=== PATIENT | male | born 1960 | race Caucasian/White ===

== ENCOUNTER → 2018-02-08 | Outpatient (CLI) | payer OTHER | END | disposition home or self-care (01) | LOC: PMGWOUND 08:44 | PROVIDERS: ATTEND Preventive Medicine Undersea and Hyperbaric Medicine | DX: E11.621 Type 2 diabetes mellitus with foot ulcer (principal); I87.012 Postthrombotic syndrome with ulcer of left lower extremity; L97.521 Non-pressure chronic ulcer of other part of left foot limited to breakdown of skin; E11.622 Type 2 diabetes mellitus with other skin ulcer; I10 Essential (primary) hypertension; L97.222 Non-pressure chronic ulcer of left calf with fat layer exposed; L84 Corns and callosities; E78.5 Hyperlipidemia, unspecified; I87.2 Venous insufficiency (chronic) (peripheral); E66.9 Obesity, unspecified; Z68.35 Body mass index [BMI] 35.0-35.9, adult; Z85.118 Personal history of other malignant neoplasm of bronchus and lung; Z86.718 Personal history of other venous thrombosis and embolism; Z85.528 Personal history of other malignant neoplasm of kidney | CPT/HCPCS: 97597 ==

== ENCOUNTER → 2018-03-01 | Outpatient (CLI) | payer OTHER ==
--- NOTE | 2018-03-01 17:04 | RAD ---
Examination: VENOUS LOWER EXTREMITY LEFT History: Chronic DVT. Left lower extremity wound. Comparison/Correlation: None Findings: Duplex left lower extremity venous ultrasound exam was performed. Color Doppler, spectral Doppler, and grayscale imaging was performed. Occlusive thrombus involving the common femoral vein. Superficial femoral vein veins have partially occlusive thrombus. There is a partially occlusive thrombus identified within a peroneal vein. Lack of compressibility is noted at the sites of thrombus involvement. Intermediate echogenicity corresponding to thrombus noted. Impression: Significant left lower extremity deep venous thrombus. Occlusive thrombus at the common femoral vein level. Partially occlusive thrombus seen at other levels. 's office was contacted and a message was left on the voicemail. The patient is known to have a history of DVT and reportedly is currently on anticoagulation. Electronically signed by: Peng Alston MD (03/01/2018 5:00 PM) [facility]
--- NOTE | 2018-03-01 17:23 | RAD ---
Left lower extremity arterial ultrasound History: Wound of the left lower extremity Findings: Multiple grayscale, color, and duplex spectral analysis sonographic images were acquired of the left lower extremity arteries. No focal vessel occlusion is demonstrated. No significant focal stenosis is demonstrated. There are mostly triphasic waveforms other than biphasic waveforms of the anterior tibial and dorsalis pedis arteries. There are some additional images indicated as being a rivers [place] boatman of the left posterior tibial vein measured 10 cm proximal to the level of ankle joint and 3 cm posterior to the anterior margin of the tibia. Velocities in cm/sec: Common femoral artery 175 Profunda femoris artery 115 Proximal SFA 142 Mid SFA 132 Distal SFA 109 Popliteal artery 105 Anterior tibial artery 50 Dorsalis pedis artery 106 Posterior tibial artery 129 Impression: 1. No significant focal vessel occlusion or stenosis is demonstrated. Electronically signed by: Yury Ann MD (03/01/2018 5:19 PM) [id number]
== END | disposition home or self-care (01) ==
LOC: US 07:49 → EEVIPCON 08:00
DX: I82.412 Acute embolism and thrombosis of left femoral vein (principal); E11.622 Type 2 diabetes mellitus with other skin ulcer; L97.222 Non-pressure chronic ulcer of left calf with fat layer exposed; Z86.718 Personal history of other venous thrombosis and embolism
CPT/HCPCS: 93926; 93971

== ENCOUNTER → 2018-03-09 | Outpatient (CLI) | payer OTHER | END | disposition home or self-care (01) | LOC: PMGWOUND 12:34 | PROVIDERS: ATTEND Preventive Medicine Undersea and Hyperbaric Medicine | DX: E11.622 Type 2 diabetes mellitus with other skin ulcer (principal); L97.222 Non-pressure chronic ulcer of left calf with fat layer exposed; I87.012 Postthrombotic syndrome with ulcer of left lower extremity; I87.2 Venous insufficiency (chronic) (peripheral); L84 Corns and callosities; I10 Essential (primary) hypertension; E78.5 Hyperlipidemia, unspecified; E66.9 Obesity, unspecified; Z68.36 Body mass index [BMI] 36.0-36.9, adult; Z86.718 Personal history of other venous thrombosis and embolism; Z85.118 Personal history of other malignant neoplasm of bronchus and lung; Z85.528 Personal history of other malignant neoplasm of kidney | CPT/HCPCS: 97597; 97598 ==

== ENCOUNTER → 2018-03-16 | Outpatient (CLI) | payer OTHER | END | disposition home or self-care (01) | LOC: PMGWOUND 12:00 | PROVIDERS: ATTEND Preventive Medicine Undersea and Hyperbaric Medicine | DX: E11.622 Type 2 diabetes mellitus with other skin ulcer (principal); L97.222 Non-pressure chronic ulcer of left calf with fat layer exposed; I87.012 Postthrombotic syndrome with ulcer of left lower extremity; I87.2 Venous insufficiency (chronic) (peripheral); I10 Essential (primary) hypertension; L84 Corns and callosities; E78.5 Hyperlipidemia, unspecified; E66.9 Obesity, unspecified; Z68.36 Body mass index [BMI] 36.0-36.9, adult; Z85.528 Personal history of other malignant neoplasm of kidney; Z85.118 Personal history of other malignant neoplasm of bronchus and lung; Z86.718 Personal history of other venous thrombosis and embolism | CPT/HCPCS: 11042 ==

== ENCOUNTER → 2018-03-23 | Outpatient (CLI) | payer OTHER | END | disposition home or self-care (01) | LOC: PMGWOUND 12:50 | PROVIDERS: ATTEND Preventive Medicine Undersea and Hyperbaric Medicine | DX: E11.622 Type 2 diabetes mellitus with other skin ulcer (principal); L97.222 Non-pressure chronic ulcer of left calf with fat layer exposed; I87.012 Postthrombotic syndrome with ulcer of left lower extremity; L84 Corns and callosities; I10 Essential (primary) hypertension; I87.2 Venous insufficiency (chronic) (peripheral); E78.5 Hyperlipidemia, unspecified; E66.9 Obesity, unspecified; Z68.36 Body mass index [BMI] 36.0-36.9, adult; Z85.528 Personal history of other malignant neoplasm of kidney; Z86.718 Personal history of other venous thrombosis and embolism; Z85.118 Personal history of other malignant neoplasm of bronchus and lung | CPT/HCPCS: 97597; 97598 ==

== ENCOUNTER → 2018-03-30 | Outpatient (CLI) | payer OTHER ==
--- NOTE | 2018-04-03 09:09 | PATHOLOGY ---
[facility] Accession Number: [id number] . 01 Material submitted: . LEFT LOWER LEG WOUND . 01 Clinical history: . Left lower leg wound. . 02 Diagnosis: Skin and subcutaneous tissue, left lower leg wound, punch biopsy: - Granulation tissue with acute and chronic inflammation and recent and remote hemorrhage. . (JPM/at;04/02/2018) QTA/04/02/2018 . 02 Comment: Sections of the left lower leg wound punch biopsy revealed skin subcutaneous tissue. There is dermal granulation tissue showing acute and chronic inflammation and recent and remote hemorrhage. There is no evidence of lymphocytic vasculitis. There is no evidence of malignancy. . (JPM/at;04/02/2018) . 02 Electronically signed: . Bo Fuentes MD, Pathologist NPI- [id number] . 01 Gross description: . Received in formalin labeled "Brant Anaya, left distal leg wound tissue biopsy" is a skin punch biopsy measuring 0.3 cm in diameter and 0.6 cm in depth. The skin surface is rocha-patel and hemorrhagic without a definitive lesion. The margin is inked and the specimen is submitted without sectioning in cassette A1. ([facility]; 04/01/2018) SYC/SYC . 02 Pathologist provided ICD-10: L92.8, L08.9 . 02 CPT . 058867 Specimen Comment: A courtesy copy of this report has been sent to Specimen Comment: [phone]. Specimen Comment: Report sent to Specimen Comment: A duplicate report has been generated due to demographic updates. Performed at: [address], [place], [place] [id number] MD Dwaine Zapien MD Phone: [phone] Performed at: 02 [facility] [address] [place] [id number] MD Bo Fuentes MD Phone: [phone]
== END | disposition home or self-care (01) ==
LOC: PMGWOUND 12:05
PROVIDERS: ATTEND Preventive Medicine Undersea and Hyperbaric Medicine
DX: E11.622 Type 2 diabetes mellitus with other skin ulcer (principal); L97.222 Non-pressure chronic ulcer of left calf with fat layer exposed; E11.621 Type 2 diabetes mellitus with foot ulcer; L97.521 Non-pressure chronic ulcer of other part of left foot limited to breakdown of skin; I87.2 Venous insufficiency (chronic) (peripheral); L84 Corns and callosities; I87.012 Postthrombotic syndrome with ulcer of left lower extremity; E78.5 Hyperlipidemia, unspecified; I10 Essential (primary) hypertension; E66.9 Obesity, unspecified; Z68.36 Body mass index [BMI] 36.0-36.9, adult; Z85.528 Personal history of other malignant neoplasm of kidney; Z85.118 Personal history of other malignant neoplasm of bronchus and lung
CPT/HCPCS: 11100; 11104; 87071; 87075; 87186; 88305; 97597; 97598

== ENCOUNTER → 2018-04-06 | Outpatient (CLI) | payer OTHER | END | disposition home or self-care (01) | LOC: PMGWOUND 12:10 | PROVIDERS: ATTEND Preventive Medicine Undersea and Hyperbaric Medicine | DX: E11.622 Type 2 diabetes mellitus with other skin ulcer (principal); L97.222 Non-pressure chronic ulcer of left calf with fat layer exposed; I87.012 Postthrombotic syndrome with ulcer of left lower extremity; I87.2 Venous insufficiency (chronic) (peripheral); L84 Corns and callosities; E78.5 Hyperlipidemia, unspecified; E66.9 Obesity, unspecified; Z68.36 Body mass index [BMI] 36.0-36.9, adult; Z85.528 Personal history of other malignant neoplasm of kidney; Z86.718 Personal history of other venous thrombosis and embolism; Z85.118 Personal history of other malignant neoplasm of bronchus and lung | CPT/HCPCS: 97597; 97598 ==

== ENCOUNTER → 2018-04-13 | Outpatient (CLI) | payer OTHER | END | disposition home or self-care (01) | LOC: PMGWOUND 11:57 | PROVIDERS: ATTEND Preventive Medicine Undersea and Hyperbaric Medicine | DX: E11.622 Type 2 diabetes mellitus with other skin ulcer (principal); L97.222 Non-pressure chronic ulcer of left calf with fat layer exposed; I87.012 Postthrombotic syndrome with ulcer of left lower extremity; L84 Corns and callosities; I10 Essential (primary) hypertension; E78.5 Hyperlipidemia, unspecified; I87.2 Venous insufficiency (chronic) (peripheral); E66.9 Obesity, unspecified; Z68.36 Body mass index [BMI] 36.0-36.9, adult; Z85.118 Personal history of other malignant neoplasm of bronchus and lung; Z86.718 Personal history of other venous thrombosis and embolism; Z85.528 Personal history of other malignant neoplasm of kidney | CPT/HCPCS: 11042; 11045 ==

== ENCOUNTER → 2018-04-27 | Outpatient (CLI) | payer OTHER ==
[~2018-04-27] MED LIST: ACET325T9 PO; ALBU2.5V8 INH; ALLO100T PO; ASCO500T2 PO; ATOR40TA59 PO; BACI28.32 TP; CABO60TA PO; CETI10TA22 PO; DOCU100C28 PO; FURO20TA3 PO; GABA300C18 PO; GABA600T7 PO; GUAI100L12 PO; HYDR-2761 PO; HYDR12.575 PO; INSU100I11 SQ; INSU100V5 IJ; LACT20SO PO; LISI-334 PO; METF10007 PO; METH113C6 TP; MORP30TA3 PO; MULT1TAB90 PO; NPH,100V5 SQ; ONDA4TAB7 PO; OXYC1TAB22 PO; PANT20TA2 PO; PHEN28OI RC; PIOG45TA40 PO; PNV1TABL31 PO; SENN-80 PO; TAMS0.4C97 PO; WARF4TAB68 PO; WARF6TAB47 PO
== END | disposition home or self-care (01) ==
LOC: EEVIPCON 11:57 → PMGWOUND 11:57
PROVIDERS: ATTEND Preventive Medicine Undersea and Hyperbaric Medicine
DX: E11.622 Type 2 diabetes mellitus with other skin ulcer (principal); L97.222 Non-pressure chronic ulcer of left calf with fat layer exposed; I87.012 Postthrombotic syndrome with ulcer of left lower extremity; I10 Essential (primary) hypertension; L84 Corns and callosities; E78.5 Hyperlipidemia, unspecified; I87.2 Venous insufficiency (chronic) (peripheral); E66.9 Obesity, unspecified; Z68.36 Body mass index [BMI] 36.0-36.9, adult; Z85.118 Personal history of other malignant neoplasm of bronchus and lung; Z85.528 Personal history of other malignant neoplasm of kidney; Z86.718 Personal history of other venous thrombosis and embolism
CPT/HCPCS: 11042; 11045

== ENCOUNTER → 2018-05-04 | Outpatient (CLI) | payer OTHER | END | disposition home or self-care (01) | LOC: PMGWOUND 12:28 | PROVIDERS: ATTEND Preventive Medicine Undersea and Hyperbaric Medicine | DX: E11.622 Type 2 diabetes mellitus with other skin ulcer (principal); L97.222 Non-pressure chronic ulcer of left calf with fat layer exposed; I87.012 Postthrombotic syndrome with ulcer of left lower extremity; I10 Essential (primary) hypertension; I87.2 Venous insufficiency (chronic) (peripheral); E78.5 Hyperlipidemia, unspecified; L84 Corns and callosities; E66.9 Obesity, unspecified; Z68.36 Body mass index [BMI] 36.0-36.9, adult; Z85.528 Personal history of other malignant neoplasm of kidney; Z86.718 Personal history of other venous thrombosis and embolism; Z85.118 Personal history of other malignant neoplasm of bronchus and lung | CPT/HCPCS: 11042; 11045 ==

== ENCOUNTER → 2018-05-11 | Outpatient (CLI) | payer OTHER | END | disposition home or self-care (01) | LOC: PMGWOUND 12:30 | PROVIDERS: ATTEND Preventive Medicine Undersea and Hyperbaric Medicine | DX: E11.622 Type 2 diabetes mellitus with other skin ulcer (principal); I87.012 Postthrombotic syndrome with ulcer of left lower extremity; L97.222 Non-pressure chronic ulcer of left calf with fat layer exposed; L84 Corns and callosities; I87.2 Venous insufficiency (chronic) (peripheral); E78.5 Hyperlipidemia, unspecified; I10 Essential (primary) hypertension; E66.9 Obesity, unspecified; Z68.35 Body mass index [BMI] 35.0-35.9, adult; Z85.118 Personal history of other malignant neoplasm of bronchus and lung; Z85.528 Personal history of other malignant neoplasm of kidney; Z86.718 Personal history of other venous thrombosis and embolism | CPT/HCPCS: 11042; 11045 ==

== ENCOUNTER → 2018-05-18 | Outpatient (CLI) | payer OTHER | END | disposition home or self-care (01) | LOC: PMGWOUND 12:08 | PROVIDERS: ATTEND Preventive Medicine Undersea and Hyperbaric Medicine | DX: E11.622 Type 2 diabetes mellitus with other skin ulcer (principal); L97.822 Non-pressure chronic ulcer of other part of left lower leg with fat layer exposed; I87.012 Postthrombotic syndrome with ulcer of left lower extremity; I87.2 Venous insufficiency (chronic) (peripheral); L84 Corns and callosities; I10 Essential (primary) hypertension; E78.5 Hyperlipidemia, unspecified; E66.9 Obesity, unspecified; Z68.36 Body mass index [BMI] 36.0-36.9, adult; Z86.718 Personal history of other venous thrombosis and embolism; Z85.528 Personal history of other malignant neoplasm of kidney; Z85.118 Personal history of other malignant neoplasm of bronchus and lung | CPT/HCPCS: 97597; 97598 ==

== ENCOUNTER 2018-05-25 15:01 | Inpatient (IN) | payer MEDICARE, MEDICAID ==
[~2018-05-25] VITALS: Ht 172.7 cm; Wt 113.9 kg
[2018-05-25 17:00] VITALS: BP 139/54
[2018-05-25] MEDS ORDERED: NPH,100V5 SQ (17:36)
[2018-05-25] MEDS ORDERED: FURO20TA3 PO (17:36)
[2018-05-25] MEDS ORDERED: PIOG45TA40 PO (17:36)
[2018-05-25] MEDS ORDERED: LISI-334 PO (17:36)
[2018-05-25] MEDS ORDERED: INSU100V5 IJ (17:36)
[2018-05-25] MEDS ORDERED: ACET325T9 PO (17:36)
[2018-05-25] MEDS ORDERED: SENN-80 PO (17:36)
[2018-05-25] MEDS ORDERED: WARF4TAB68 PO (17:36)
--- NOTE | 2018-05-25 17:58 | PDOC1 ---
History and Physical Date of Admission Date of Admission DATE: 05/25/18 TIME: 17:54 Identification/Chief Complaint Chief Complaint Worsening infection left lower leg x a few days, seen in wound clinic weekly x yrs, now with fever, inc redness and pain, denies recent trauma pain requiring iv narcotics STATES HE IS NEAR [facility] TERM END, LOW SECURITY RISK NO guard in room, was serving time for failure to pay child support. Past Medical History Cardiovascular: HTN CENTRAL NERVOUS SYSTEM: Periperal neuropathy GI: No pertinent hx Heme/Onc: No pertinent hx Musculoskeletal: Stiffness Infectious disease: No pertinent hx, Other ENT: No pertinent hx Renal/: No pertinent hx Endocrine: Diabetes Dermatology: Cellulitis Past Surgical History Past Surgical History: Hernia Repair, Other Family History Family History: Hypertension Social History Smoke: No ALCOHOL: none Drugs: None Current Medications Current Medications Active Scripts Active Reported Tylenol (Acetaminophen) 325 Mg Tablet 2 Tab PO TID PRN PRN Humulin R (Insulin Regular, Human) 100 Unit/1 Ml Vial 100 Unit IJ TIDAC Lisinopril 20 Mg Tablet 1 Tab PO DAILY Furosemide 20 Mg Tablet 1 Tab PO DAILY Coumadin (Warfarin Sodium) 4 Mg Tablet 1 Tab PO DAILY Actos (Pioglitazone Hcl) 45 Mg Tablet 1 Tab PO DAILY Novolin N (Nph, Human Insulin Isophane) 100 Unit/1 Ml Vial 20 Unit SQ BID Senna (Sennosides) 8.6 Mg Tablet 2 Mg PO BID Allergies Allergies: Coded Allergies: I S O L A T I O N *CONTACT* (Verified Allergy, Unknown, 04/05/18) mrsa ibuprofen (Verified Adverse Reaction, Intermediate, 05/25/18) Warfarin ROS General: No: Chills, Night Sweats, Fatigue, Malaise, Appetite, Other PSYCHOLOGICAL ROS: No: Anxiety, Behavioral Disorder, Concentration difficultie , Decreased libido, Depression, Disorientation, Hallucinations, Hostility, Irritablity, Memory difficulties, Mood Swings, Obsessive thoughts, Physical abuse, Sexual abuse, Sleep disturbances, Suicidal ideation, Other Eyes: No Blurry vision, No Decreased vision, No Double vision, No Dry eyes, No Excessive tearing, No Eye Pain, No Itchy Eyes, No Loss of vision, No Photophobia , No Scotomata, No Uses contacts, No Uses glasses, No Other HEENT: No: Heacaches, Visual Changes, Hearing change, Nasal congestion, Nasal discharge, Oral lesions, Sinus pain, Sore Throat, Epistaxis, Sneezing, Snoring, Tinnitus, Vertigo, Vocal changes, Other ALLERGY AND IMMUNOLOGY: No: Hives, Insect Bite Sensitivity, Itchy/Watery Eyes, Nasal Congestion, Post Nasal Drip, Seasonal Allergies, Other Hematological and Lymphatic: No: Bleeding Problems, Blood Clots, Blood Transfusions, Brusing, Night Sweats, Pallor, Swollen Lymph Nodes, Other ENDOCRINE: No: Breast Changes, Galactorrhea, Hair Pattern Changes, Hot Flashes , Malaise/lethargy, Mood Swings, Palpitations, Polydipsia/polyuria, Skin Changes , Temperature Intolerance, Unexpected Weight Changes, Other Breast: No New/Changing Breast Lumps, No Nipple changes, No Nipple discharge, No Other Respiratory: No: Cough, Hemoptysis, Orthopnea, Pleuritic Pain, Shortness of breath, SOB with excertion, Sputum Changes, Stridor, Tachypnea, Wheezing, Other Cardiovascular: No Chest Pain, No Palpitations, No Orthopnea, No Paroxysmal Noc. Dyspnea, No Edema, No Lt Headedness, No Other Gastrointestinal: No Nausea, No Vomiting, No Abdominal Pain, No Diarrhea, No Constipation, No Melena, No Hematochezia, No Other Musculoskeletal: Yes Gait Disturbance Neurological: No Behavorial Changes, No Bowel/Bladder ControlChng, No Confusion , No Dizziness, No Gait Disturbance, No Headaches, No Impaired Coord/balance, No Memory Loss, No Numbness/Tingling, No Seizures, No Speech Problems, No Tremors, No Visual Changes, No Weakness, No Other Skin: Yes Skin Lesion Changes Physical Exam General: Alert, Oriented X3, Cooperative, No acute distress HEENT: PERRLA Lungs: Clear to auscultation, Normal air movement Heart: S1S2, RRR Breasts: Not examined Abdomen: Normal bowel sounds, Soft Rectal Exam: not examined PELVIC: Examination not indicated Extremities: No clubbing, Other (left lower leg marked cellulitis) Neuro: Normal speech, Cranial nerves 3-12 NL Psych/Mental Status: Mental status NL, Mood NL Vitals Vitals Vital Signs Date Time Temp Pulse Resp B/P (MAP) Pulse Ox O2 Delivery O2 Flow Rate FiO2 05/25/18 17:00 98.8 96 17 139/54 (82) 97 Room Air 98.8 Labs Labs Diagnosis: Skin and subcutaneous tissue, left lower leg wound, punch biopsy: - Granulation tissue with acute and chronic inflammation and recent and remote hemorrhage. . (JPM/at;04/02/2018) QTA/04/02/2018 . 02 Comment: Sections of the left lower leg wound punch biopsy revealed skin subcutaneous tissue. There is dermal granulation tissue showing acute and chronic inflammation and recent and remote hemorrhage. There is no evidence of lymphocytic vasculitis. There is no evidence of malignancy. . (JPM/at;04/02/2018) VTE Prophylaxis Ordered VTE Prophylaxis Devices: Contraindicated VTE Pharmacological Prophylaxi: Yes Assessment/Plan Assessment/Plan impression 1. marked complicated acute cellulitis left lower leg 2. diabetes 3. hypertension 4. failed out pt rx in wound clinic PMC 5. OBESITY 6. [place] prisoner low security 7. mod protein, caloric malnutrition D/W DR MCCRACKEN by phone plan admit 2 mn iv zosyn iv VANC PENDING ID CONSULT ID CONSULT WOUND CARE NURSE TO SEE BLOOD CULT X1 CULT WOUND CONT COUMADIN/ INR PENDING arterial doppler both legs r/ pvd a1c accuchecks CBC, COMP MAXIMILIANO JONAS MD May 25, 2018 17:58
[2018-05-25] MEDS ORDERED: cloNIDine HCL 0.1 MG TABLET PO PRN (18:00)
[2018-05-25] MEDS ORDERED: DOCUSATE SODIUM 100 MG CAPSULE. PO PRN (18:00)
[2018-05-25] MEDS ORDERED: diphenhydrAMINE 50 MG/ML VIAL IVP PRN (18:00)
[2018-05-25] MEDS ORDERED: ZOLPIDEM 5 MG TABLET. PO PRN (18:00)
[2018-05-25] MEDS ORDERED: MAG HYDROX/ALUMINUM HYD/SIMETH 30 ML ORAL.SUSP PO PRN (18:00)
[2018-05-25] MEDS ORDERED: guaiFENesin ORAL 200 MG/10 ML LIQUID. PO PRN (18:00)
[2018-05-25] MEDS ORDERED: TAMS0.4C97 PO (18:12)
[2018-05-25] MEDS ORDERED: GABA600T7 PO (18:14)
[2018-05-25] MEDS ORDERED: ALLO100T PO (18:14)
[2018-05-25] MEDS ORDERED: ACETAMINOPHEN 325 MG TABLET. PO PRN (18:15)
[2018-05-25] MEDS ORDERED: GABA300C18 PO (18:16)
[2018-05-25] MEDS ORDERED: METF10007 PO (18:17)
[2018-05-25] MEDS ORDERED: CETI10TA22 PO (18:20)
[2018-05-25] MEDS ORDERED: ATOR40TA59 PO (18:20)
[2018-05-25] MEDS ORDERED: ALBU2.5V8 INH (18:31)
[2018-05-25] MEDS ORDERED: METH113C6 TP (18:31)
[2018-05-25] MEDS ORDERED: PHEN28OI RC (18:31)
[2018-05-25] MEDS ORDERED: VANCOMYCIN 2 GM in IV NORMAL SALINE 500ML BAG 500 ML IV ONE (19:00)
[2018-05-25 19:30] VITALS: BP 129/63
[2018-05-25 20:21] LABS: PROTHROMBIN TIME PATIENT 21.4 SEC (11.7-14.0)
[2018-05-25] MEDS: VANCOMYCIN PER PHARMACY MC PRN (20:50)
[2018-05-25] MEDS: IPRATRPIUM/ALBUTEROL 0.5/2.5MG 3 ML NEBU. NEB SCH (20:56)
--- NOTE | 2018-05-25 20:57 | NUR ---
Pharmacy Vancomycin Dosing Note S:Consulted to monitor and dose vancomycin started 05/25/18. O:HELADIO GAO is a 57 year old M with Cellulitis Height: 5 feet, 8 inches Weight: 114 kg Mathis Body Weight: 68.40 Adjusted Body Weight: 86.64 Dosing Weight: Actual Other Antibiotics: zosyn LABS: Last BUN: 25 Last Creatinine: 1.2 Creatinine Clearance: 82.2 mL/min Last WBC: 11.4 Last Procalcitonin: Tmax (past 24 hours): 98.8 Microbiology: - I/O: - Vancomycin Dosing: Loading Dose: 2000 mg x1 Dosing Weight: Actual Target Trough: 10-20 A: Based on: weight and renal function P: 1. Begin Vancomycin 1500 mg IV q12h 2. Follow up Trough level on 05/27/18 at 0830 3. Pharmacy will continue to monitor, follow and adjust therapy as needed. Nancie Oro RPH, 05/25/18 [id number]
[2018-05-25] MEDS: IV NORMAL SALINE 1000ML BAG 1,000 ML IV SCH (21:30)
[2018-05-25] MEDS: PIPERACILLIN/TAZOBACTAM 3.375 GM in IV NORMAL SALINE 50ML 50 ML IV SCH (21:31)
[2018-05-25] MEDS: LORazepam 0.5 MG TABLET PO PRN (21:33)
[2018-05-25] MEDS: SENNOSIDES 8.6 MG TABLET PO SCH (21:33)
[2018-05-25] MEDS: WARFARIN 4 MG TABLET. PO SCH (21:34)
[2018-05-25] MEDS: INSULIN GLARGINE 300 UNITS/3 ML INSULN.PEN. SQ SCH (21:41)
[2018-05-25] MEDS: fentaNYL PF VIAL 100 MCG/2 ML VIAL IV PRN (22:20)
[2018-05-25] MEDS: ACETAMINOPHEN 325 MG TABLET. PO PRN (22:22)
[2018-05-25 23:30] VITALS: BP 111/54
[2018-05-26] MEDS ORDERED: PIPERACILLIN/TAZOBACTAM 3.375 GM in IV NORMAL SALINE 50ML 50 ML IV SCH ×2
[2018-05-26] MEDS: PIPERACILLIN/TAZOBACTAM 3.375 GM in IV NORMAL SALINE 50ML 50 ML IV SCH ×4 (00:29→18:10)
[2018-05-26] MEDS: IPRATRPIUM/ALBUTEROL 0.5/2.5MG 3 ML NEBU. NEB SCH ×7 (00:59→23:19)
[2018-05-26 03:30] VITALS: BP 113/57
[2018-05-26] MEDS: LORazepam 0.5 MG TABLET PO PRN (04:30)
[2018-05-26] MEDS: ACETAMINOPHEN 325 MG TABLET. PO PRN ×2 (04:31→22:46)
[2018-05-26] MEDS: fentaNYL PF VIAL 100 MCG/2 ML VIAL IV PRN ×4 (04:32→20:16)
[2018-05-26 05:21] LABS: BILIRUBIN,URINE NEGATIVE (NEG); CLARITY,URINE CLEAR; COLOR,URINE YELLOW; NITRITE,URINE NEGATIVE (NEG); PH,URINE 5.5; PROTEIN,URINE NEGATIVE (NEG-TRACE)
[2018-05-26 05:33] LABS: BACTERIA,URINE 0 /HPF (0-FEW); RBC,URINE 0 /HPF (0-2); SQUAMOUS EPITHELIAL CELL,UR FEW /LPF; WBC,URINE OCC /HPF (0-4)
[2018-05-26 05:57] LABS: PROTHROMBIN TIME PATIENT 21.4 SEC (11.7-14.0)
[2018-05-26 07:00] VITALS: BP 105/44
--- NOTE | 2018-05-26 07:55 | RAD ---
AP chest. HISTORY: Leg wound, fever AP view was taken of the chest. There are multiple pulmonary nodules. The pattern can be related to septic emboli or metastatic disease to the lungs. CT of the chest would be of benefit. Heart is normal in size. There is no pleural effusion. IMPRESSION: 1. Multiple pulmonary nodules, CT would be of benefit. Electronically signed by: Arturo Torres MD (05/26/2018 7:52 AM) [facility]
--- NOTE | 2018-05-26 08:19 | RAD ---
Bilateral arterial Doppler the lower extremities. HISTORY: Peripheral vascular disease, large open wound left lower extremity Duplex ultrasound was used to evaluate the lower extremities. Real-time imaging, color flow imaging and Doppler were utilized for evaluation. Peak velocity in the right common femoral artery was 142 cm/s with a normal triphasic waveform. Deep femoral artery had a biphasic waveform with velocity of 68 cm/s. There are triphasic waveforms throughout the length of the superficial femoral artery on the right with velocities between 150 cm/s proximally and 100 cm distally. There is a triphasic pattern at the popliteal artery with velocity 109 cm/s. There is a Triphasic waveform in the proximal anterior tibial on the right with a velocity of 61 cm/s. There is a triphasic pattern with velocity of 133 cm in the distal posterior tibial artery. There is a triphasic waveform with velocity of 62 cm/s in the right dorsalis pedis. There is a prominent lymph node in the right groin. Reactive lymph node is possible with the wound in the left lower extremity. Velocity at the left common femoral artery is 145 cm/s with a triphasic waveform. Triphasic flow is noted throughout the length of the left superficial femoral artery with velocities between 188 cm/s proximally and 149 cm/s distally. There is a triphasic waveform with velocity of 97 cm/s the popliteal artery. There is a triphasic flow with a velocity of 81 cm per sec in the proximal left anterior tibial artery. There is a triphasic waveform with velocity 115 cm/s in the left dorsalis pedis. The patient's wound Limits evaluation of the calf. There is a biphasic waveform in the proximal posterior tibial with velocity of 67 cm/s. IMPRESSION: 1. No evidence of significant peripheral vascular disease in the right lower extremity. 2. Limited evaluation of the calf due to the wound. 3. No evidence of significant arterial stenosis to the level in the popliteal artery in the left lower extremity. 4. Normal triphasic pattern in the anterior tibial and dorsalis pedis to the left foot. Electronically signed by: Arturo Torres MD (05/26/2018 8:16 AM) [facility]
[2018-05-26] MEDS ORDERED: VANCOMYCIN 1.5 GM in IV NORMAL SALINE 500ML BAG 500 ML IV SCH (09:00)
[2018-05-26] MEDS ORDERED: ENOXAPARIN 40 MG/0.4 ML SYRINGE. SQ SCH (09:00)
[2018-05-26] MEDS: FUROSEMIDE 20 MG TABLET PO SCH (09:00)
[2018-05-26] MEDS: IV NORMAL SALINE 1000ML BAG 1,000 ML IV SCH ×3 (09:38→23:33)
[2018-05-26] MEDS: LISINOPRIL 20 MG TABLET PO SCH (09:40)
[2018-05-26] MEDS: SENNOSIDES 8.6 MG TABLET PO SCH ×2 (09:41→20:15)
[2018-05-26] MEDS: PIOGLITAZONE 15 MG TABLET. PO SCH (09:42)
[2018-05-26] MEDS: INSULIN GLARGINE 300 UNITS/3 ML INSULN.PEN. SQ SCH ×2 (09:53→20:43)
[2018-05-26] MEDS ORDERED: ALBUTEROL SULFATE 2.5 MG/3 ML NEBU. INH PRN (10:15)
--- NOTE | 2018-05-26 10:34 | EKG ---
[facility] [address] [place] [address] Test Date: 2018-05-26 Test Time: 10:25:59 Pat Name: HELADIO GAO Department: Room: [facility] Gender: M Electronic Development Technician: DEANDRE : 1960 Requested By: MAXIMILIANO JONAS Order Number: [id number] Reading MD: Dany Miller MD Measurements Intervals [place] Rate: 90 P: 42 CO: 146 QRS: 6 QRSD: 90 T: 42 QT: 332 QTc: 410 Interpretive Statements SINUS RHYTHM Electronically Signed On 05-31-2018 15:01:56 CDT by Dany Miller MD
[2018-05-26 11:00] VITALS: BP 100/48
[2018-05-26] MEDS ORDERED: ALLOPURINOL 100 MG TABLET. PO SCH (11:00)
[2018-05-26] MEDS: GABAPENTIN 300 MG CAPSULE. PO SCH ×2 (12:37→20:15)
[2018-05-26] MEDS: CETIRIZINE HCL 10 MG TABLET. PO SCH (12:41)
[2018-05-26] MEDS: TAMSULOSIN 0.4 MG CAP.ER.24H. PO SCH (12:41)
[2018-05-26] MEDS ORDERED: DEXTROSE 50% 25 GM / 50ML DISP.SYRIN. IV PRN (13:00)
--- NOTE | 2018-05-26 13:45 | NUR ---
Patient refused allopurinol, he said he's not been taking the medicine for years.
[2018-05-26 15:00] VITALS: BP 105/55
[2018-05-26] MEDS: VANCOMYCIN PER PHARMACY MC PRN (16:08)
--- NOTE | 2018-05-26 16:18 | PDOC ---
PROGRESS NOTES Chief Complaint Chief Complaint 1. marked complicated acute cellulitis left lower leg 2. diabetes 2, mod control 3. hypertension 4. leg wound with cellullitis in DM2 5. OBESITY, BMI 38 6. [place] prisoner low security 7. mod protein, caloric malnutrition History of Present Illness History of Present Illness iv zosyn and vanc ID consult DM2 control, add SSI, add home meds wound care consult, pain control, A1c hgb in AM arterial doppler both legs OK CBC, COMP Vitals Vitals Vital Signs Date Time Temp Pulse Resp B/P (MAP) Pulse Ox O2 Delivery O2 Flow Rate FiO2 05/26/18 15:00 99.6 96 20 105/55 (72) 96 Room Air 99.6 Physical Exam General: Alert, Oriented X3, Cooperative, No acute distress Heart: No murmurs Abdomen: Normal bowel sounds, Soft Extremities: No clubbing, Other (left lower leg marked cellulitis) Labs LABS Laboratory Tests Test 05/25/18 19:33 05/25/18 21:37 05/26/18 04:28 05/26/18 04:50 Prothrombin Time 21.4 SEC (11.7-14.0) 21.4 SEC (11.7-14.0) Prothromb Time International Ratio 1.9 (0.8-1.1) 1.9 (0.8-1.1) Lactic Acid Level 2.0 mmol/L (0.4-2.0) Albumin 2.8 g/dL (3.4-5.0) Glucose (Fingerstick) 214 mg/dL (70-99) Urine Collection Type Unknown Urine Color Yellow Urine Clarity Clear Urine pH 5.5 Urine Specific Arpin 1.015 Urine Protein Negative mg/dL (NEG-TRACE) Urine Glucose (UA) 100 mg/dL (NEG) Urine Ketones (Stick) Negative mg/dL (NEG) Urine Blood Negative (NEG) Urine Nitrite Negative (NEG) Urine Bilirubin Negative (NEG) Urine Urobilinogen Dipstick 1.0 mg/dL (0.2 mg/dL) Urine Leukocyte Esterase Negative (NEG) Urine RBC 0 /HPF (0-2) Urine WBC Occ /HPF (0-4) Urine Squamous Epithelial Cells Few /LPF Urine Bacteria 0 /HPF (0-FEW) Test 05/26/18 07:27 05/26/18 10:42 Glucose (Fingerstick) 160 mg/dL (70-99) 288 mg/dL (70-99) Review of Systems Review of Systems leg pain, neuropathy insomnia Comment Review of Relevant I have reviewed the following items anjana (where applicable) has been applied. Labs Laboratory Tests Test 05/25/18 19:33 05/25/18 21:37 05/26/18 04:28 05/26/18 04:50 Prothrombin Time 21.4 SEC (11.7-14.0) 21.4 SEC (11.7-14.0) Prothromb Time International Ratio 1.9 (0.8-1.1) 1.9 (0.8-1.1) Lactic Acid Level 2.0 mmol/L (0.4-2.0) Albumin 2.8 g/dL (3.4-5.0) Glucose (Fingerstick) 214 mg/dL (70-99) Urine Collection Type Unknown Urine Color Yellow Urine Clarity Clear Urine pH 5.5 Urine Specific Arpin 1.015 Urine Protein Negative mg/dL (NEG-TRACE) Urine Glucose (UA) 100 mg/dL (NEG) Urine Ketones (Stick) Negative mg/dL (NEG) Urine Blood Negative (NEG) Urine Nitrite Negative (NEG) Urine Bilirubin Negative (NEG) Urine Urobilinogen Dipstick 1.0 mg/dL (0.2 mg/dL) Urine Leukocyte Esterase Negative (NEG) Urine RBC 0 /HPF (0-2) Urine WBC Occ /HPF (0-4) Urine Squamous Epithelial Cells Few /LPF Urine Bacteria 0 /HPF (0-FEW) Test 05/26/18 07:27 05/26/18 10:42 Glucose (Fingerstick) 160 mg/dL (70-99) 288 mg/dL (70-99) Laboratory Tests Test 05/25/18 19:33 05/25/18 21:37 05/26/18 04:28 05/26/18 04:50 Prothrombin Time 21.4 SEC (11.7-14.0) 21.4 SEC (11.7-14.0) Prothromb Time International Ratio 1.9 (0.8-1.1) 1.9 (0.8-1.1) Lactic Acid Level 2.0 mmol/L (0.4-2.0) Albumin 2.8 g/dL (3.4-5.0) Glucose (Fingerstick) 214 mg/dL (70-99) Urine Collection Type Unknown Urine Color Yellow Urine Clarity Clear Urine pH 5.5 Urine Specific Arpin 1.015 Urine Protein Negative mg/dL (NEG-TRACE) Urine Glucose (UA) 100 mg/dL (NEG) Urine Ketones (Stick) Negative mg/dL (NEG) Urine Blood Negative (NEG) Urine Nitrite Negative (NEG) Urine Bilirubin Negative (NEG) Urine Urobilinogen Dipstick 1.0 mg/dL (0.2 mg/dL) Urine Leukocyte Esterase Negative (NEG) Urine RBC 0 /HPF (0-2) Urine WBC Occ /HPF (0-4) Urine Squamous Epithelial Cells Few /LPF Urine Bacteria 0 /HPF (0-FEW) Test 05/26/18 07:27 05/26/18 10:42 Glucose (Fingerstick) 160 mg/dL (70-99) 288 mg/dL (70-99) Medications Current Medications Sodium Chloride 1,000 ml @ 100 mls/hr Q10H IV Last administered on 05/26/18at 09:38; Start 05/25/18 at 17:54 Ondansetron HCl (Zofran) 4 mg PRN Q4HRS PRN IV NAUSEA/VOMITING; Start 05/25/18 at 18:00 Zolpidem Tartrate (Ambien) 5 mg PRN QHS PRN PO INSOMNIA; Start 05/25/18 at 18: 00 Acetaminophen (Tylenol) 650 mg PRN Q4HRS PRN PO TEMP OVER 100.4F OR MILD PAIN Last administered on 05/26/18at 04:31; Start 05/25/18 at 18:00 Al Hydroxide/Mg Hydroxide (Mylanta Plus Xs) 30 ml PRN DAILY PRN PO HEARTBURN / GAS; Start 05/25/18 at 18:00 Clonidine HCl (Catapres) 0.1 mg PRN Q6HRS PRN PO SBP>160 OR DBP>90; Start 05/25 at 18:00 Diphenhydramine HCl (Benadryl) 25 mg PRN Q4HRS PRN IVP ITCHING; Start 05/25/18 at 18:00 Docusate Sodium (Colace) 100 mg PRN BID PRN PO CONSTIPATION; Start 05/25/18 at 18:00 Albuterol/ Ipratropium (Duoneb) 3 ml Q4HRS NEB Last administered on 05/26/18 16:03; Start 05/25/18 at 20:00 Guaifenesin (Robitussin) 200 mg PRN Q4HRS PRN PO COUGH; Start 05/25/18 at 18:00 Lorazepam (Ativan) 0.5 mg PRN Q4HRS PRN PO ANXIETY / AGITATION Last administered on 05/26/18at 04:30; Start 05/25/18 at 18:00 Enoxaparin Sodium (Lovenox 40mg Syringe) 40 mg DAILY SQ Last administered on 09:39; Start 05/26/18 at 09:00 Piperacillin Sod/ Tazobactam Sod 3.375 gm/Sodium Chloride 50 ml @ 100 mls/hr Q6HRS IV Last administered on 05/26/18 12:53; Start 05/25/18 at 18:10 Acetaminophen (Tylenol) 650 mg TID PRN PRN PO PAIN; Start 05/25/18 at 18:15; Status UNV Furosemide (Lasix) 20 mg DAILY PO ; Start 05/26/18 at 09:00 Lisinopril (Prinivil) 20 mg DAILY PO Last administered on 05/26/18 09:40; Start 05/26/18 at 09:00 Insulin Glargine (Lantus) 20 units BID SQ Last administered on 05/26/18 09:53 ; Start 05/25/18 at 21:00 Pioglitazone HCl (Actos) 45 mg DAILY PO Last administered on 05/26/18 09:42; Start 05/26/18 at 09:00 Sennosides (Senna) 17.2 mg BID PO Last administered on 05/26/18 09:41; Start 05/25/18 at 21:00 Warfarin Sodium (Coumadin) 4 mg DAILY16 PO Last administered on 05/25/18at 21:34 ; Start 05/25/18 at 21:00 Piperacillin Sod/ Tazobactam Sod 3.375 gm/Sodium Chloride 50 ml @ 100 mls/hr Q6HRS IV ; Start 05/26/18 at 00:00; Status UNV Vancomycin HCl (Vanco Per Pharmacy) 1 each PRN DAILY PRN MC SEE COMMENTS Last administered on 05/26/18at 16:08; Start 05/25/18 at 18:45 Vancomycin HCl 2 gm/Sodium Chloride 500 ml @ 250 mls/hr 1X ONCE IV Last administered on 05/25/18at 22:34; Start 05/25/18 at 19:00; Stop 05/25/18 at 20:59 ; Status DC Warfarin Sodium (Coumadin Per Physician) 1 each PRN DAILY PRN MC SEE COMMENTS Last administered on 05/26/18at 16:15; Start 05/25/18 at 20:45 Vancomycin HCl 1.5 gm/Sodium Chloride 500 ml @ 250 mls/hr Q12H IV Last administered on 05/26/18at 09:39; Start 05/26/18 at 09:00 Vancomycin HCl (Vancomycin Trough Level) 1 each 1X ONCE MC ; Start 05/27/18 at 08:30; Stop 05/27/18 at 08:31 Fentanyl Citrate (Fentanyl 2ml Vial) 50 mcg PRN Q3HRS PRN IV SEVERE PAIN Last administered on 05/26/18at 12:51; Start 05/25/18 at 22:00 Albuterol Sulfate (Ventolin Neb Soln) 2.5 mg PRN Q6HRS PRN INH SHORTNESS OF BREATH; Start 05/26/18 at 10:15 Allopurinol (Zyloprim) 200 mg DAILY PO ; Start 05/26/18 at 11:00; Stop 05/26/18 at 16:09; Status DC Atorvastatin Calcium (Lipitor) 40 mg QHS PO ; Start 05/26/18 at 21:00 Cetirizine HCl (ZyrTEC) 10 mg DAILY PO Last administered on 05/26/18at 12:41; Start 05/26/18 at 10:30 Tamsulosin HCl (Flomax) 0.4 mg DAILY PO Last administered on 05/26/18at 12:41; Start 05/26/18 at 10:30 Gabapentin (Neurontin) 600 mg BID PO Last administered on 05/26/18at 12:37; Start 05/26/18 at 10:15 Insulin Human Lispro (HumaLOG) 4 units TIDWMEALS SQ ; Start 05/26/18 at 17:00 Insulin Human Lispro (HumaLOG) 0-7 UNITS TIDWMEALS SQ ; Start 05/26/18 at 17:00 Dextrose (Dextrose 50%-Water Syringe) 12.5 gm PRN Q15MIN PRN IV SEE COMMENTS; Start 05/26/18 at 13:00 Active Scripts Active Reported Preparation H Ointment (Phenyleph/Mineral Oil/Petrolat) 28 Gm Oint.appl 28 Gm RC QID Muscle Rub Cream (Methyl Salicylate/Menthol) 113 Gm Cream..g. 1 Gm TP TID Proair Hfa Inhaler (Albuterol Sulfate) 8.5 Gm Hfa.aer.ad 1 Puff INH PRN Q6HRS PRN Zyrtec (Cetirizine Hcl) 10 Mg Tablet 1 Tab PO DAILY Atorvastatin Calcium 40 Mg Tablet 1 Tab PO QHS Metformin Hcl 1,000 Mg Tablet 1,000 Mg PO BIDWMEALS Gabapentin (Gabapentin) 300 Mg Capsule 300 Mg PO DAILY Gabapentin 600 Mg Tablet 600 Mg PO DAILY08 Flomax (Tamsulosin Hcl) 0.4 Mg Cap.er.24h 1 Cap PO DAILY Tylenol (Acetaminophen) 325 Mg Tablet 2 Tab PO TID PRN PRN Humulin R (Insulin Regular, Human) 100 Unit/1 Ml Vial 100 Unit IJ TIDAC Lisinopril 20 Mg Tablet 1 Tab PO DAILY Furosemide 20 Mg Tablet 1 Tab PO DAILY Coumadin (Warfarin Sodium) 4 Mg Tablet 1 Tab PO DAILY Actos (Pioglitazone Hcl) 45 Mg Tablet 1 Tab PO DAILY Novolin N (Nph, Human Insulin Isophane) 100 Unit/1 Ml Vial 20 Unit SQ BID Senna (Sennosides) 8.6 Mg Tablet 2 Mg PO BID Vitals/I & O Vital Sign - Last 24 Hours 05/25/18 05/25/18 05/25/18 05/25/18 16:30 17:00 19:30 20:00 Temp 98.8 99.9 98.8 99.9 Pulse 96 102 Resp 17 18 B/P (MAP) 139/54 (82) 129/63 (85) Pulse Ox 97 94 O2 Delivery Room Air Room Air Room Air Room Air 05/25/18 05/25/18 05/25/18 05/26/18 20:58 22:20 23:30 00:59 Temp 102.0 102.0 Pulse 102 Resp 18 B/P (MAP) 111/54 (73) Pulse Ox 99 92 O2 Delivery Room Air Room Air Room Air Room Air 05/26/18 05/26/18 05/26/18 05/26/18 03:30 04:32 07:00 07:11 Temp 98.8 99.2 98.8 99.2 Pulse 87 87 Resp 18 18 B/P (MAP) 113/57 (75) 105/44 (64) Pulse Ox 93 96 96 O2 Delivery Room Air Room Air Room Air Room Air 05/26/18 05/26/18 05/26/18 05/26/18 08:00 09:40 11:00 12:50 Temp 98.6 98.6 Pulse 87 86 Resp 18 B/P (MAP) 105/44 100/48 (65) Pulse Ox 96 94 O2 Delivery Room Air Room Air Room Air 05/26/18 05/26/18 05/26/18 12:51 13:25 15:00 Temp 99.6 99.6 Pulse 96 Resp 19 18 20 B/P (MAP) 105/55 (72) Pulse Ox 94 94 96 O2 Delivery Room Air Room Air Room Air Intake and Output 05/25/18 05/25/18 05/26/18 15:00 23:00 07:00 Intake Total 0 ml 1000 ml Balance 0 ml 1000 ml JASMYNE MATA MD May 26, 2018 16:18
[2018-05-26] MEDS: metFORMIN 500 MG TABLET PO SCH (18:06)
[2018-05-26] MEDS: WARFARIN 4 MG TABLET. PO SCH (18:06)
[2018-05-26] MEDS: INSULIN LISPRO 300 UNITS/3 ML INSULN.PEN. SQ SCH ×2 (18:15→18:16)
--- NOTE | 2018-05-26 18:26 | PDOC ---
Infectious Disease Note Vital Sign Vital Signs Vital Signs Date Time Temp Pulse Resp B/P (MAP) Pulse Ox O2 Delivery O2 Flow Rate FiO2 05/26/18 16:42 18 96 Room Air 05/26/18 15:00 99.6 96 105/55 (72) 99.6 Labs Lab Laboratory Tests Test 05/25/18 19:33 05/25/18 21:37 05/26/18 04:28 05/26/18 04:50 Prothrombin Time 21.4 SEC (11.7-14.0) 21.4 SEC (11.7-14.0) Prothromb Time International Ratio 1.9 (0.8-1.1) 1.9 (0.8-1.1) Lactic Acid Level 2.0 mmol/L (0.4-2.0) Albumin 2.8 g/dL (3.4-5.0) Glucose (Fingerstick) 214 mg/dL (70-99) Urine Collection Type Unknown Urine Color Yellow Urine Clarity Clear Urine pH 5.5 Urine Specific [place] 1.015 Urine Protein Negative mg/dL (NEG-TRACE) Urine Glucose (UA) 100 mg/dL (NEG) Urine Ketones (Stick) Negative mg/dL (NEG) Urine Blood Negative (NEG) Urine Nitrite Negative (NEG) Urine Bilirubin Negative (NEG) Urine Urobilinogen Dipstick 1.0 mg/dL (0.2 mg/dL) Urine Leukocyte Esterase Negative (NEG) Urine RBC 0 /HPF (0-2) Urine WBC Occ /HPF (0-4) Urine Squamous Epithelial Cells Few /LPF Urine Bacteria 0 /HPF (0-FEW) Test 05/26/18 07:27 05/26/18 10:42 05/26/18 16:25 Glucose (Fingerstick) 160 mg/dL (70-99) 288 mg/dL (70-99) 253 mg/dL (70-99) Objective Assessment Cellulitis of left lower extremity Nonhealing wounds of LLE since 2017,, now with eschar. ? depth ESR 60 -h/o MRSA and enterococcus penicillin sensitive -followed weekly by [facility] wound care center Fever Diabetes with peripheral neuropathy PVD h/o DVT on warfarin therapy h/o kidney cancer with mets to lung -followed by Dr. Tomlinson in [place], on Sutent per patient Solitary kidney Incarceration, Plan Plan of Care Switch vancomycin to Zyvox and continue the Zosyn May need further imaging of LLE Consult vascular wound and blood cultures pending check CPK Contact isolation d/w Dr. Lloyd d/w nursing Thank you [phone] Patient seen and examined on 05/26/18. Chart reviewed in detail. Case discussed with ELECTRONICS DEPARTMENT MANAGER. Agree with above plan. LEONOR RAMAN APRN May 26, 2018 18:26 VIPIN LLOYD MD May 27, 2018 21:22
[2018-05-26 19:00] VITALS: BP 113/47
[2018-05-26] MEDS: ATORVASTATIN CALCIUM 40 MG TABLET. PO SCH (20:15)
[2018-05-26 23:00] VITALS: BP 112/51
[2018-05-27] MEDS: PIPERACILLIN/TAZOBACTAM 3.375 GM in IV NORMAL SALINE 50ML 50 ML IV SCH ×4 (00:49→17:53)
--- NOTE | 2018-05-27 01:04 | CONS ---
DATE OF CONSULTATION: 05/26/2018 HISTORY OF PRESENT ILLNESS: The patient says he was diagnosed with kidney cancer in 2011 and has metastatic disease to his lungs. He had a right nephrectomy. He is followed by Dr. Schneider in [place], [place] and takes Sutent for treatment. He denies headaches, nasal/sinus congestion or sore throat. He denies cough, shortness of air or chest discomfort. He denies nausea, vomiting or diarrhea. He says his appetite is good. Denies difficulty urinating. He also has neuropathy, tingling sensation from his feet up to his knees. PAST MEDICAL HISTORY: 1. Type 2 diabetes since 1988. 2. Peripheral neuropathy. 3. Peripheral vascular disease. 4. History of DVT, left lower extremity, on warfarin therapy. 5. Morbid obesity. 6. Kidney cancer diagnosed in 2011 with metastatic disease to lungs. He is followed by Dr. Schneider in [place], [place] and is taking Sutent for treatment. 7. Emphysema. 8. Asthma. 9. [place]'s disease. 10. Hypertension. 11. History of MRSA and Enterococcus penicillin-sensitive wound infection. 12. Nonhealing ulcers of the left lower extremity. 13. Hyperlipidemia. PAST SURGICAL HISTORY: Right nephrectomy, hernia repair with mesh x 2, excision of facial tumor and tonsillectomy. FAMILY HISTORY: Positive for hypertension. SOCIAL HISTORY: The patient is currently a prisoner of [employer] and is considered low security risk. He has multiple tattoos since a young age that were reportedly professionally done. He says he had negative HIV and hepatitis C testing in the past. He is a nonsmoker. ALLERGIES: IBUPROFEN. MEDICATIONS: Vancomycin, Zosyn, warfarin, gabapentin. Other medications are available and have been reviewed on the MAR. REVIEW OF SYSTEMS: Per HPI, otherwise all other review of systems are negative. PHYSICAL EXAMINATION: VITAL SIGNS: Temperature is 99.6, T-max 102.0, blood pressure 105/55, heart rate 96, respiratory rate 18, pulse oximetry is 96% on room air. BMI 38.2. HEENT: Pupils equally round. Normal conjunctivae. Oral cavity: Pharynx pink and moist. No lesions. NECK: Supple. LUNGS: Clear to auscultation. HEART: S1 and S2. ABDOMEN: Obese, soft and nontender with bowel sounds present. EXTREMITIES: Unremarkable except for 2 fairly large annular ulcers on anterior left leg with black dry base and surrounding warmth, edema and redness extending medially to the thigh area. Distal pulses palpable. SKIN: Warm without rash. NEUROLOGIC: Alert and responds appropriately. LABORATORY DATA: From 05/25/2018, WBC 11.4, hemoglobin 11.5, platelets 169,000. Sed rate 68. Electrolytes are unremarkable. Creatinine 1.2, BUN 25, albumin 2.8, lactic acid 2.0, glucose 107. Urinalysis from 05/26/2018 unremarkable for infection. Anaerobic-aerobic culture and blood cultures pending. MRSA screen pending. INR 1.9. Arterial Doppler, per HPI. Also, no evidence of significant peripheral vascular disease in the right lower extremity was noted. Chest x-ray showed multiple pulmonary nodules. IMPRESSION: 1. Cellulitis of left lower extremity. 2. Nonhealing wounds of left lower extremity since 2017, now with eschar. 3. Fever. 4. Diabetes with peripheral neuropathy. 5. Peripheral vascular disease. 6. History of deep venous thrombosis, on warfarin therapy. 7. 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 He is followed by Dr. Schneider in [place] and takes Sutent for treatment per the patient. 8. Solitary kidney. 9. Incarceration. PLAN: Given the patient's history of a solitary kidney, we will switch the vancomycin to Zyvox for now and continue the Zosyn. He may need further imaging of the left lower extremity to help determine depth. We will consult Vascular. Wound and blood cultures have been ordered. We will add a CPK level. Continue to monitor laboratory values and temperature. He is to be in contact isolation given his history of methicillin-resistant Staphylococcus aureus. Thank you, Dr. Wilson, for asking us to participate in this patient's care. Should you have further questions or concerns, please call. VIPIN CHAN MD DR: NIKHIL/edgard JOB#: [id number] / [id number]
--- NOTE | 2018-05-27 01:06 | CONS ---
DATE OF CONSULTATION: 05/26/2018 This is Pratik Duff, nurse practitioner dictating for Dr. Vipin Weldon, Infectious Disease. REFERRING PHYSICIAN: Jose Armando Wilson M.D. REASON FOR CONSULTATION: Cellulitis of left lower extremity. HISTORY OF PRESENT ILLNESS: This patient is a 57-year-old male with a PMH of obesity, type 2 diabetes since 1988, peripheral neuropathy and peripheral vascular disease. According to the patient since 2016, he has had 2/6 nonhealing diabetic ulcers of left lower leg. He is followed weekly by [facility] and has had several "scrapings." About 2 months ago, the wounds grew MRSA and Enterococcus penicillin sensitive for which he believes may have been treated with clindamycin, but the wound did not heal. He states he is scheduled to have some sort of vascular procedure to "open up his circulation" in the near future. About 2 days ago, he developed as severe cramps in both his legs. He drank increased amount of water without improvement. He has since developed redness and swelling of the left leg and the ulcers have turned black in color. An arterial Doppler showed no evidence of significant arterial stenosis to the level in the popliteal artery in the left lower extremity and normal triphasic pattern in the anterior tibial and dorsalis pedis to the left foot. Wound care team has been consulted. Wound and blood cultures have been ordered. He was dosed with vancomycin and Zosyn per Primary. ID has been asked to consult for further evaluation and antibiotic management. Since admission, the patient spiked a fever of 102.2. He denies chills, sweats or body aches. He states the pain is some better with fentanyl. He has a history of a DVT of left leg and is currently on warfarin therapy. He also states he was diagnosed with a kidney cancer in 2011. DICTATION ENDS ABRUPTLY HERE. VIPIN CHAN MD DR: MARISSA/edgard JOB#: [id number] / [id number]
[2018-05-27 03:01] VITALS: BP 107/54
[2018-05-27] MEDS: IPRATRPIUM/ALBUTEROL 0.5/2.5MG 3 ML NEBU. NEB SCH ×6 (04:00→23:37)
--- NOTE | 2018-05-27 06:45 | NUR ---
Pt states yellow sputum noted this am. Pt instructed to report if sputum continues. Pt continues on antibiotic and breathing tx at this time.
[2018-05-27 07:20] VITALS: BP 110/56
--- NOTE | 2018-05-27 07:45 | PDOC ---
Infectious Disease Note Subjective Subjective Pain controlled + fever Tmax 101.5 + cough with yellow phlegm production Denies chills/body aches/N/V/D ROS ROS per HPI Vital Sign Vital Signs Vital Signs Date Time Temp Pulse Resp B/P (MAP) Pulse Ox O2 Delivery O2 Flow Rate FiO2 05/27/18 07:20 98.3 94 18 110/56 (74) 98 Room Air 98.3 Physical Exam PHYSICAL EXAM GENERAL: Propped up in bed, alert, NAD HEENT: Pupils equally round. Normal conjunctivae. Oral cavity: Pharynx pink and moist. No lesions. NECK: Supple. LUNGS: Clear to auscultation. HEART: S1 and S2. ABDOMEN: Obese, soft and nontender with bowel sounds present. EXTREMITIES: Unremarkable except for 2 fairly large annular ulcers on anterior left leg with black dry base and surrounding warmth, edema and redness extending medially to the thigh area. Distal pulses palpable. SKIN: Developing herpetic-type lesions around the mouth and nasal folds NEUROLOGIC: Alert and responds appropriately. PIV ok Labs Lab Laboratory Tests Test 05/26/18 10:42 05/26/18 16:25 05/26/18 19:04 05/27/18 07:15 Glucose (Fingerstick) 288 mg/dL (70-99) 253 mg/dL (70-99) 246 mg/dL (70-99) 135 mg/dL (70-99) Micro Microbiology 05/25/18 Blood Culture - Preliminary, Resulted NO GROWTH AFTER 1 DAY Objective Assessment Cellulitis of left lower extremity Nonhealing wounds of LLE since 2017,, now with eschar. ? depth ESR 60 -h/o MRSA and enterococcus penicillin sensitive -followed weekly by [facility] wound care center Fever Diabetes with peripheral neuropathy PVD h/o DVT on warfarin therapy h/o kidney cancer with mets to lung -followed by Dr. Tomlinson in [place], on Sutent per patient Solitary kidney Incarceration, Plan Plan of Care Zyvox and Zosyn May need further imaging of LLE and debridement Awaiting vascular eval wound cultures pending NGTD CPK pending Contact isolation d/w nursing Patient seen and examined. Chart reviewed in detail. Case discussed with HEAD LINEMAN. Agree with above plan. LEONOR RAMAN APRN May 27, 2018 07:45 VIPIN CHAN MD May 27, 2018 21:23
[2018-05-27] MEDS: INSULIN LISPRO 300 UNITS/3 ML INSULN.PEN. SQ SCH ×6 (08:00→18:08)
[2018-05-27] MEDS: PIOGLITAZONE 15 MG TABLET. PO SCH (08:10)
[2018-05-27] MEDS: metFORMIN 500 MG TABLET PO SCH ×2 (08:10→17:49)
[2018-05-27] MEDS: GABAPENTIN 300 MG CAPSULE. PO SCH ×2 (08:10→20:07)
[2018-05-27] MEDS: CETIRIZINE HCL 10 MG TABLET. PO SCH (08:11)
[2018-05-27] MEDS: LISINOPRIL 20 MG TABLET PO SCH (08:11)
[2018-05-27] MEDS: SENNOSIDES 8.6 MG TABLET PO SCH ×2 (08:12→20:08)
[2018-05-27] MEDS: INSULIN GLARGINE 300 UNITS/3 ML INSULN.PEN. SQ SCH ×2 (08:28→21:07)
[2018-05-27] MEDS: fentaNYL PF VIAL 100 MCG/2 ML VIAL IV PRN ×4 (08:37→22:30)
[2018-05-27] MEDS: TAMSULOSIN 0.4 MG CAP.ER.24H. PO SCH (08:37)
[2018-05-27] MEDS: IV NORMAL SALINE 1000ML BAG 1,000 ML IV SCH ×2 (08:38→20:06)
[2018-05-27 08:56] LABS: BASO % 0 % (0-3); EOS % 1 % (0-3); HEMATOCRIT 29.8 % (39.0-53.0); HEMOGLOBIN 9.5 g/dL (13.0-17.5); LYMPH # 1.8 x10^3/uL (1.0-4.8); LYMPH % 26 % (24-48); MEAN CORPUSCULAR HEMOGLOBIN 32 pg (25-35); MEAN CORPUSCULAR HGB CONC 32 g/dL (31-37); MEAN CORPUSCULAR VOLUME 100 fL (79-100); MONO # 0.5 x10^3/uL (0.0-1.1); MONO % 7 % (0-9); NEUT # 4.7 x10^3uL (1.8-7.7); NEUT % 67 % (31-73); PLATELET COUNT 132 x10^3/uL (140-400); RED BLOOD COUNT 2.98 x10^6/uL (4.30-5.70); RED CELL DISTRIBUTION WIDTH 17.8 % (11.5-14.5); WHITE BLOOD COUNT 6.9 x10^3/uL (4.0-11.0)
[2018-05-27] MEDS: FUROSEMIDE 20 MG TABLET PO SCH (09:00)
[2018-05-27 09:10] LABS: PROTHROMBIN TIME PATIENT 23.1 SEC (11.7-14.0)
[2018-05-27 09:13] LABS: ALBUMIN 2.1 g/dL (3.4-5.0); ALBUMIN/GLOBULIN RATIO 0.5 (1.0-1.7); CALCIUM 8.2 mg/dL (8.5-10.1); CREATININE 1.3 mg/dL (0.7-1.3); GFR 56.7; POTASSIUM 4.3 mmol/L (3.5-5.1); TOTAL BILIRUBIN 0.5 mg/dL (0.2-1.0); TOTAL PROTEIN 6.1 g/dL (6.4-8.2)
--- NOTE | 2018-05-27 10:44 | PDOC ---
PROGRESS NOTES Chief Complaint Chief Complaint 1. marked complicated acute cellulitis left lower leg 2. diabetes 2, mod control 3. hypertension 4. leg wound with cellullitis in DM2 5. OBESITY, BMI 38 6. [place] prisoner low security 7. mod protein, caloric malnutrition History of Present Illness History of Present Illness [facility] has seen DM2 control, add SSI, wound care consult, pain control, A1c hgb in AM arterial doppler both legs OK CBC, COMP Vitals Vitals Vital Signs Date Time Temp Pulse Resp B/P (MAP) Pulse Ox O2 Delivery O2 Flow Rate FiO2 05/27/18 08:37 19 98 Room Air 05/27/18 08:11 94 110/56 05/27/18 07:20 98.3 98.3 Physical Exam Physical Exam GENERAL: Propped up in bed, alert, NAD HEENT: Pupils equally round. Normal conjunctivae. Oral cavity: Pharynx pink and moist. No lesions. NECK: Supple. LUNGS: Clear to auscultation. HEART: S1 and S2. ABDOMEN: Obese, soft and nontender with bowel sounds present. EXTREMITIES: Unremarkable except for 2 fairly large annular ulcers on anterior left leg with black dry base and surrounding warmth, edema and redness extending medially to the thigh area. Distal pulses palpable. SKIN: Developing herpetic-type lesions around the mouth and nasal folds NEUROLOGIC: Alert and responds appropriately. PIV ok General: Alert, Oriented X3, Cooperative, No acute distress Heart: Regular rate, No murmurs Abdomen: Normal bowel sounds, Soft Extremities: No clubbing, Other (left lower leg marked cellulitis) Labs LABS Laboratory Tests Test 05/26/18 16:25 05/26/18 19:04 05/27/18 07:15 05/27/18 08:25 Glucose (Fingerstick) 253 mg/dL (70-99) 246 mg/dL (70-99) 135 mg/dL (70-99) White Blood Count 6.9 x10^3/uL (4.0-11.0) Red Blood Count 2.98 x10^6/uL (4.30-5.70) Hemoglobin 9.5 g/dL (13.0-17.5) Hematocrit 29.8 % (39.0-53.0) Mean Corpuscular Volume 100 fL (79-100) Mean Corpuscular Hemoglobin 32 pg (25-35) Mean Corpuscular Hemoglobin Concent 32 g/dL (31-37) Red Cell Distribution Width 17.8 % (11.5-14.5) Platelet Count 132 x10^3/uL (140-400) Neutrophils (%) (Auto) 67 % (31-73) Lymphocytes (%) (Auto) 26 % (24-48) Monocytes (%) (Auto) 7 % (0-9) Eosinophils (%) (Auto) 1 % (0-3) Basophils (%) (Auto) 0 % (0-3) Neutrophils # (Auto) 4.7 x10^3uL (1.8-7.7) Lymphocytes # (Auto) 1.8 x10^3/uL (1.0-4.8) Monocytes # (Auto) 0.5 x10^3/uL (0.0-1.1) Eosinophils # (Auto) 0.0 x10^3/uL (0.0-0.7) Basophils # (Auto) 0.0 x10^3/uL (0.0-0.2) Prothrombin Time 23.1 SEC (11.7-14.0) Prothromb Time International Ratio 2.1 (0.8-1.1) Sodium Level 140 mmol/L (136-145) Potassium Level 4.3 mmol/L (3.5-5.1) Chloride Level 103 mmol/L (98-107) Carbon Dioxide Level 27 mmol/L (21-32) Anion Gap 10 (6-14) Blood Urea Nitrogen 21 mg/dL (8-26) Creatinine 1.3 mg/dL (0.7-1.3) Estimated GFR (Cockcroft-Gault) 56.7 BUN/Creatinine Ratio 16 (6-20) Glucose Level 184 mg/dL (70-99) Calcium Level 8.2 mg/dL (8.5-10.1) Total Bilirubin 0.5 mg/dL (0.2-1.0) Aspartate Amino Transf (AST/SGOT) 12 U/L (15-37) Alanine Aminotransferase (ALT/SGPT) 15 U/L (16-63) Alkaline Phosphatase 55 U/L (46-116) Total Protein 6.1 g/dL (6.4-8.2) Albumin 2.1 g/dL (3.4-5.0) Albumin/Globulin Ratio 0.5 (1.0-1.7) Comment Review of Relevant I have reviewed the following items anjana (where applicable) has been applied. Labs Laboratory Tests Test 05/25/18 19:33 05/25/18 21:37 05/25/18 22:30 05/26/18 04:28 Prothrombin Time 21.4 SEC (11.7-14.0) 21.4 SEC (11.7-14.0) Prothromb Time International Ratio 1.9 (0.8-1.1) 1.9 (0.8-1.1) Lactic Acid Level 2.0 mmol/L (0.4-2.0) Albumin 2.8 g/dL (3.4-5.0) Glucose (Fingerstick) 214 mg/dL (70-99) Nasal Screen MRSA (PCR) Positive (Negative) Test 05/26/18 04:50 05/26/18 07:27 05/26/18 10:42 05/26/18 16:25 Urine Collection Type Unknown Urine Color Yellow Urine Clarity Clear Urine pH 5.5 Urine Specific [place] 1.015 Urine Protein Negative mg/dL (NEG-TRACE) Urine Glucose (UA) 100 mg/dL (NEG) Urine Ketones (Stick) Negative mg/dL (NEG) Urine Blood Negative (NEG) Urine Nitrite Negative (NEG) Urine Bilirubin Negative (NEG) Urine Urobilinogen Dipstick 1.0 mg/dL (0.2 mg/dL) Urine Leukocyte Esterase Negative (NEG) Urine RBC 0 /HPF (0-2) Urine WBC Occ /HPF (0-4) Urine Squamous Epithelial Cells Few /LPF Urine Bacteria 0 /HPF (0-FEW) Glucose (Fingerstick) 160 mg/dL (70-99) 288 mg/dL (70-99) 253 mg/dL (70-99) Test 05/26/18 19:04 05/27/18 07:15 05/27/18 08:25 Glucose (Fingerstick) 246 mg/dL (70-99) 135 mg/dL (70-99) White Blood Count 6.9 x10^3/uL (4.0-11.0) Red Blood Count 2.98 x10^6/uL (4.30-5.70) Hemoglobin 9.5 g/dL (13.0-17.5) Hematocrit 29.8 % (39.0-53.0) Mean Corpuscular Volume 100 fL (79-100) Mean Corpuscular Hemoglobin 32 pg (25-35) Mean Corpuscular Hemoglobin Concent 32 g/dL (31-37) Red Cell Distribution Width 17.8 % (11.5-14.5) Platelet Count 132 x10^3/uL (140-400) Neutrophils (%) (Auto) 67 % (31-73) Lymphocytes (%) (Auto) 26 % (24-48) Monocytes (%) (Auto) 7 % (0-9) Eosinophils (%) (Auto) 1 % (0-3) Basophils (%) (Auto) 0 % (0-3) Neutrophils # (Auto) 4.7 x10^3uL (1.8-7.7) Lymphocytes # (Auto) 1.8 x10^3/uL (1.0-4.8) Monocytes # (Auto) 0.5 x10^3/uL (0.0-1.1) Eosinophils # (Auto) 0.0 x10^3/uL (0.0-0.7) Basophils # (Auto) 0.0 x10^3/uL (0.0-0.2) Prothrombin Time 23.1 SEC (11.7-14.0) Prothromb Time International Ratio 2.1 (0.8-1.1) Sodium Level 140 mmol/L (136-145) Potassium Level 4.3 mmol/L (3.5-5.1) Chloride Level 103 mmol/L (98-107) Carbon Dioxide Level 27 mmol/L (21-32) Anion Gap 10 (6-14) Blood Urea Nitrogen 21 mg/dL (8-26) Creatinine 1.3 mg/dL (0.7-1.3) Estimated GFR (Cockcroft-Gault) 56.7 BUN/Creatinine Ratio 16 (6-20) Glucose Level 184 mg/dL (70-99) Calcium Level 8.2 mg/dL (8.5-10.1) Total Bilirubin 0.5 mg/dL (0.2-1.0) Aspartate Amino Transf (AST/SGOT) 12 U/L (15-37) Alanine Aminotransferase (ALT/SGPT) 15 U/L (16-63) Alkaline Phosphatase 55 U/L (46-116) Total Protein 6.1 g/dL (6.4-8.2) Albumin 2.1 g/dL (3.4-5.0) Albumin/Globulin Ratio 0.5 (1.0-1.7) Laboratory Tests Test 05/26/18 16:25 05/26/18 19:04 05/27/18 07:15 05/27/18 08:25 Glucose (Fingerstick) 253 mg/dL (70-99) 246 mg/dL (70-99) 135 mg/dL (70-99) White Blood Count 6.9 x10^3/uL (4.0-11.0) Red Blood Count 2.98 x10^6/uL (4.30-5.70) Hemoglobin 9.5 g/dL (13.0-17.5) Hematocrit 29.8 % (39.0-53.0) Mean Corpuscular Volume 100 fL (79-100) Mean Corpuscular Hemoglobin 32 pg (25-35) Mean Corpuscular Hemoglobin Concent 32 g/dL (31-37) Red Cell Distribution Width 17.8 % (11.5-14.5) Platelet Count 132 x10^3/uL (140-400) Neutrophils (%) (Auto) 67 % (31-73) Lymphocytes (%) (Auto) 26 % (24-48) Monocytes (%) (Auto) 7 % (0-9) Eosinophils (%) (Auto) 1 % (0-3) Basophils (%) (Auto) 0 % (0-3) Neutrophils # (Auto) 4.7 x10^3uL (1.8-7.7) Lymphocytes # (Auto) 1.8 x10^3/uL (1.0-4.8) Monocytes # (Auto) 0.5 x10^3/uL (0.0-1.1) Eosinophils # (Auto) 0.0 x10^3/uL (0.0-0.7) Basophils # (Auto) 0.0 x10^3/uL (0.0-0.2) Prothrombin Time 23.1 SEC (11.7-14.0) Prothromb Time International Ratio 2.1 (0.8-1.1) Sodium Level 140 mmol/L (136-145) Potassium Level 4.3 mmol/L (3.5-5.1) Chloride Level 103 mmol/L (98-107) Carbon Dioxide Level 27 mmol/L (21-32) Anion Gap 10 (6-14) Blood Urea Nitrogen 21 mg/dL (8-26) Creatinine 1.3 mg/dL (0.7-1.3) Estimated GFR (Cockcroft-Gault) 56.7 BUN/Creatinine Ratio 16 (6-20) Glucose Level 184 mg/dL (70-99) Calcium Level 8.2 mg/dL (8.5-10.1) Total Bilirubin 0.5 mg/dL (0.2-1.0) Aspartate Amino Transf (AST/SGOT) 12 U/L (15-37) Alanine Aminotransferase (ALT/SGPT) 15 U/L (16-63) Alkaline Phosphatase 55 U/L (46-116) Total Protein 6.1 g/dL (6.4-8.2) Albumin 2.1 g/dL (3.4-5.0) Albumin/Globulin Ratio 0.5 (1.0-1.7) Microbiology 05/25/18 Blood Culture - Preliminary, Resulted NO GROWTH AFTER 1 DAY Medications Current Medications Sodium Chloride 1,000 ml @ 100 mls/hr Q10H IV Last administered on 05/27/18at 08:38; Start 05/25/18 at 17:54 Ondansetron HCl (Zofran) 4 mg PRN Q4HRS PRN IV NAUSEA/VOMITING; Start 05/25/18 at 18:00 Zolpidem Tartrate (Ambien) 5 mg PRN QHS PRN PO INSOMNIA; Start 05/25/18 at 18: 00 Acetaminophen (Tylenol) 650 mg PRN Q4HRS PRN PO TEMP OVER 100.4F OR MILD PAIN Last administered on 05/26/18at 22:46; Start 05/25/18 at 18:00 Al Hydroxide/Mg Hydroxide (Mylanta Plus Xs) 30 ml PRN DAILY PRN PO HEARTBURN / GAS; Start 05/25/18 at 18:00 Clonidine HCl (Catapres) 0.1 mg PRN Q6HRS PRN PO SBP>160 OR DBP>90; Start 05/25 at 18:00 Diphenhydramine HCl (Benadryl) 25 mg PRN Q4HRS PRN IVP ITCHING; Start 05/25/18 at 18:00 Docusate Sodium (Colace) 100 mg PRN BID PRN PO CONSTIPATION; Start 05/25/18 at 18:00 Albuterol/ Ipratropium (Duoneb) 3 ml Q4HRS NEB Last administered on 05/27/18 06:08; Start 05/25/18 at 20:00 Guaifenesin (Robitussin) 200 mg PRN Q4HRS PRN PO COUGH; Start 05/25/18 at 18:00 Lorazepam (Ativan) 0.5 mg PRN Q4HRS PRN PO ANXIETY / AGITATION Last administered on 05/26/18 04:30; Start 05/25/18 at 18:00 Enoxaparin Sodium (Lovenox 40mg Syringe) 40 mg DAILY SQ Last administered on 09:39; Start 05/26/18 at 09:00; Stop 05/26/18 at 16:30; Status DC Piperacillin Sod/ Tazobactam Sod 3.375 gm/Sodium Chloride 50 ml @ 100 mls/hr Q6HRS IV Last administered on 05/27/18at 05:47; Start 05/25/18 at 18:10 Acetaminophen (Tylenol) 650 mg TID PRN PRN PO PAIN; Start 05/25/18 at 18:15; Status UNV Furosemide (Lasix) 20 mg DAILY PO ; Start 05/26/18 at 09:00 Lisinopril (Prinivil) 20 mg DAILY PO Last administered on 05/27/18at 08:11; Start 05/26/18 at 09:00 Insulin Glargine (Lantus) 20 units BID SQ Last administered on 05/27/18at 08:28 ; Start 05/25/18 at 21:00 Pioglitazone HCl (Actos) 45 mg DAILY PO Last administered on 05/27/18at 08:10; Start 05/26/18 at 09:00 Sennosides (Senna) 17.2 mg BID PO Last administered on 05/27/18 08:12; Start 05/25/18 at 21:00 Warfarin Sodium (Coumadin) 4 mg DAILY16 PO Last administered on 3/16/19at 18:06 ; Start 05/25/18 at 21:00 Piperacillin Sod/ Tazobactam Sod 3.375 gm/Sodium Chloride 50 ml @ 100 mls/hr Q6HRS IV ; Start 05/26/18 at 00:00; Status UNV Vancomycin HCl (Vanco Per Pharmacy) 1 each PRN DAILY PRN MC SEE COMMENTS Last administered on 05/26/18at 16:08; Start 05/25/18 at 18:45; Stop 05/26/18 at 18:24 ; Status DC Vancomycin HCl 2 gm/Sodium Chloride 500 ml @ 250 mls/hr 1X ONCE IV Last administered on 05/25/18at 22:34; Start 05/25/18 at 19:00; Stop 05/25/18 at 20:59 ; Status DC Warfarin Sodium (Coumadin Per Physician) 1 each PRN DAILY PRN MC SEE COMMENTS Last administered on 05/26/18at 16:15; Start 05/25/18 at 20:45 Vancomycin HCl 1.5 gm/Sodium Chloride 500 ml @ 250 mls/hr Q12H IV Last administered on 05/26/18at 09:39; Start 05/26/18 at 09:00; Stop 05/26/18 at 18:24 ; Status DC Vancomycin HCl (Vancomycin Trough Level) 1 each 1X ONCE MC ; Start 05/27/18 at 08:30; Stop 05/27/18 at 08:30; Status DC Fentanyl Citrate (Fentanyl 2ml Vial) 50 mcg PRN Q3HRS PRN IV SEVERE PAIN Last administered on 05/27/18at 08:37; Start 05/25/18 at 22:00 Albuterol Sulfate (Ventolin Neb Soln) 2.5 mg PRN Q6HRS PRN INH SHORTNESS OF BREATH; Start 05/26/18 at 10:15 Allopurinol (Zyloprim) 200 mg DAILY PO ; Start 05/26/18 at 11:00; Stop 05/26/18 at 16:09; Status DC Atorvastatin Calcium (Lipitor) 40 mg QHS PO Last administered on 05/26/18at 20: 15; Start 05/26/18 at 21:00 Cetirizine HCl (ZyrTEC) 10 mg DAILY PO Last administered on 05/27/18at 08:11; Start 05/26/18 at 10:30 Tamsulosin HCl (Flomax) 0.4 mg DAILY PO Last administered on 05/27/18 08:37; Start 05/26/18 at 10:30 Gabapentin (Neurontin) 600 mg BID PO Last administered on 05/27/18 08:10; Start 05/26/18 at 10:15 Insulin Human Lispro (HumaLOG) 4 units TIDWMEALS SQ Last administered on 08:27; Start 05/26/18 at 17:00 Insulin Human Lispro (HumaLOG) 0-7 UNITS TIDWMEALS SQ Last administered on 05/26 18:16; Start 05/26/18 at 17:00 Dextrose (Dextrose 50%-Water Syringe) 12.5 gm PRN Q15MIN PRN IV SEE COMMENTS; Start 05/26/18 at 13:00 Metformin HCl (Glucophage) 1,000 mg BIDWMEALS PO Last administered on 08:10; Start 05/26/18 at 17:00 Linezolid/Dextrose 300 ml @ 300 mls/hr Q12HR IV Last administered on 08:13; Start 05/26/18 at 21:00 Active Scripts Active Reported Preparation H Ointment (Phenyleph/Mineral Oil/Petrolat) 28 Gm Oint.appl 28 Gm RC QID Muscle Rub Cream (Methyl Salicylate/Menthol) 113 Gm Cream..g. 1 Gm TP TID Proair Hfa Inhaler (Albuterol Sulfate) 8.5 Gm Hfa.aer.ad 1 Puff INH PRN Q6HRS PRN Zyrtec (Cetirizine Hcl) 10 Mg Tablet 1 Tab PO DAILY Atorvastatin Calcium 40 Mg Tablet 1 Tab PO QHS Metformin Hcl 1,000 Mg Tablet 1,000 Mg PO BIDWMEALS Gabapentin (Gabapentin) 300 Mg Capsule 300 Mg PO DAILY Gabapentin 600 Mg Tablet 600 Mg PO DAILY08 Flomax (Tamsulosin Hcl) 0.4 Mg Cap.er.24h 1 Cap PO DAILY Tylenol (Acetaminophen) 325 Mg Tablet 2 Tab PO TID PRN PRN Humulin R (Insulin Regular, Human) 100 Unit/1 Ml Vial 100 Unit IJ TIDAC Lisinopril 20 Mg Tablet 1 Tab PO DAILY Furosemide 20 Mg Tablet 1 Tab PO DAILY Coumadin (Warfarin Sodium) 4 Mg Tablet 1 Tab PO DAILY Actos (Pioglitazone Hcl) 45 Mg Tablet 1 Tab PO DAILY Novolin N (Nph, Human Insulin Isophane) 100 Unit/1 Ml Vial 20 Unit SQ BID Senna (Sennosides) 8.6 Mg Tablet 2 Mg PO BID Vitals/I & O Vital Sign - Last 24 Hours 05/26/18 05/26/18 05/26/18 05/26/18 11:00 12:50 12:51 15:00 Temp 98.6 99.6 98.6 99.6 Pulse 86 96 Resp 18 19 20 B/P (MAP) 100/48 (65) 105/55 (72) Pulse Ox 96 94 94 96 O2 Delivery Room Air Room Air Room Air Room Air 05/26/18 05/26/18 05/26/18 05/26/18 16:03 16:42 17:15 19:00 Temp 100.7 100.7 Pulse 78 Resp 18 18 18 B/P (MAP) 113/47 (69) Pulse Ox 96 96 96 98 O2 Delivery Room Air Room Air Room Air 05/26/18 05/26/18 05/26/18 05/26/18 19:44 20:00 20:16 20:46 Pulse Ox 96 O2 Delivery Room Air Room Air Room Air Room Air 05/26/18 05/26/18 05/27/18 05/27/18 23:00 23:20 03:01 07:20 Temp 101.5 99.1 98.3 101.5 99.1 98.3 Pulse 103 98 94 Resp 18 18 18 B/P (MAP) 112/51 (71) 107/54 (71) 110/56 (74) Pulse Ox 96 96 96 98 O2 Delivery Room Air Room Air Room Air Room Air 05/27/18 05/27/18 05/27/18 08:00 08:11 08:37 Pulse 94 Resp 19 B/P (MAP) 110/56 Pulse Ox 98 O2 Delivery Room Air Room Air Intake and Output 05/26/18 05/26/18 05/27/18 15:00 23:00 07:00 Intake Total 480 ml 840 ml 0 ml Output Total 1 ml 1000 ml 1600 ml Balance 479 ml -160 ml -1600 ml JASMYNE MATA MD May 27, 2018 10:44
--- NOTE | 2018-05-27 10:49 | PDOC2 ---
CONSULT Date of Consult Date of Consult DATE: 05/27/18 TIME: 10:44 Reason for Consult Reason for Consult: left leg wound, possible PAD and hx of DVT Referring Physician Referring Physician: Dr Jimenez of Infectious Disease Identification/Chief Complaint Chief Complaint Patient is a pleasant 57-year-old male with a history of diabetes mellitus and left lower extremity DVT who was being seen for left lee wounds and an outpatient wound care center. He had worsening of the wounds and was felt to have possible infection was admitted to the hospital for evaluation and intravenous antibiotics. He currently denies any fever, chills, rigors, other signs of a sending infection. He has no ischemic rest pain. He denies any history of claudication. He has no history of arterial intervention in the lower extremities. Source Source: Chart review, Patient History of Present Illness Reason for Visit: 57-year-old male with a history of diabetes mellitus, left lower extremity DVT, and left lower [place] venous stasis ulcer being treated wound care center. He had worsening of the wound/infection and presented to the hospital on wound care recommendation for admission and intravenous antibiotics. He has a history of left lower extremity DVT treated with Coumadin. He has no history of PAD or lower extremity arterial intervention. Past Medical History Past Medical History Past Medical History Cardiovascular: HTN CENTRAL NERVOUS SYSTEM: Periperal neuropathy GI: No pertinent hx Heme/Onc: No pertinent hx Musculoskeletal: Stiffness Infectious disease: No pertinent hx, Other ENT: No pertinent hx Renal/: No pertinent hx Endocrine: Diabetes Dermatology: Cellulitis Cardiovascular: HTN CENTRAL NERVOUS SYSTEM: Periperal neuropathy GI: No pertinent hx Heme/Onc: No pertinent hx Musculoskeletal: Stiffness Infectious disease: No pertinent hx, Other ENT: No pertinent hx Renal/: No pertinent hx Endocrine: Diabetes Dermatology: Cellulitis Past Surgical History Past Surgical History Hernia repair Past Surgical History: Hernia Repair, Other Family History Family History See H&P, no additions Family History: Hypertension Social History Social History Denies use of alcohol, tobacco, recreational drugs. Was incarcerated for nonviolent offense. He has tattoos. No ALCOHOL: none Drugs: None Current Problem List Problem List #1 left leg venous stasis ulcer #2 left leg DVT in the past Current Medications Current Medications Current Medications Sodium Chloride 1,000 ml @ 100 mls/hr Q10H IV Last administered on 05/27/18at 08:38; Start 05/25/18 at 17:54 Ondansetron HCl (Zofran) 4 mg PRN Q4HRS PRN IV NAUSEA/VOMITING; Start 05/25/18 at 18:00 Zolpidem Tartrate (Ambien) 5 mg PRN QHS PRN PO INSOMNIA; Start 05/25/18 at 18: 00 Acetaminophen (Tylenol) 650 mg PRN Q4HRS PRN PO TEMP OVER 100.4F OR MILD PAIN Last administered on 05/26/18at 22:46; Start 05/25/18 at 18:00 Al Hydroxide/Mg Hydroxide (Mylanta Plus Xs) 30 ml PRN DAILY PRN PO HEARTBURN / GAS; Start 05/25/18 at 18:00 Clonidine HCl (Catapres) 0.1 mg PRN Q6HRS PRN PO SBP>160 OR DBP>90; Start 05/25 at 18:00 Diphenhydramine HCl (Benadryl) 25 mg PRN Q4HRS PRN IVP ITCHING; Start 05/25/18 at 18:00 Docusate Sodium (Colace) 100 mg PRN BID PRN PO CONSTIPATION; Start 05/25/18 at 18:00 Albuterol/ Ipratropium (Duoneb) 3 ml Q4HRS NEB Last administered on 05/27/18at 06:08; Start 05/25/18 at 20:00 Guaifenesin (Robitussin) 200 mg PRN Q4HRS PRN PO COUGH; Start 05/25/18 at 18:00 Lorazepam (Ativan) 0.5 mg PRN Q4HRS PRN PO ANXIETY / AGITATION Last administered on 05/26/18at 04:30; Start 05/25/18 at 18:00 Enoxaparin Sodium (Lovenox 40mg Syringe) 40 mg DAILY SQ Last administered on at 09:39; Start 05/26/18 at 09:00; Stop 05/26/18 at 16:30; Status DC Piperacillin Sod/ Tazobactam Sod 3.375 gm/Sodium Chloride 50 ml @ 100 mls/hr Q6HRS IV Last administered on 05/27/18at 05:47; Start 05/25/18 at 18:10 Acetaminophen (Tylenol) 650 mg TID PRN PRN PO PAIN; Start 05/25/18 at 18:15; Status UNV Furosemide (Lasix) 20 mg DAILY PO ; Start 05/26/18 at 09:00 Lisinopril (Prinivil) 20 mg DAILY PO Last administered on 05/27/18at 08:11; Start 05/26/18 at 09:00 Insulin Glargine (Lantus) 20 units BID SQ Last administered on 05/27/18at 08:28 ; Start 05/25/18 at 21:00 Pioglitazone HCl (Actos) 45 mg DAILY PO Last administered on 05/27/18at 08:10; Start 05/26/18 at 09:00 Sennosides (Senna) 17.2 mg BID PO Last administered on 05/27/18 08:12; Start 05/25/18 at 21:00 Warfarin Sodium (Coumadin) 4 mg DAILY16 PO Last administered on 05/26/18 18:06 ; Start 05/25/18 at 21:00 Piperacillin Sod/ Tazobactam Sod 3.375 gm/Sodium Chloride 50 ml @ 100 mls/hr Q6HRS IV ; Start 05/26/18 at 00:00; Status UNV Vancomycin HCl (Vanco Per Pharmacy) 1 each PRN DAILY PRN MC SEE COMMENTS Last administered on 05/26/18at 16:08; Start 05/25/18 at 18:45; Stop 05/26/18 at 18:24 ; Status DC Vancomycin HCl 2 gm/Sodium Chloride 500 ml @ 250 mls/hr 1X ONCE IV Last administered on 05/25/18at 22:34; Start 05/25/18 at 19:00; Stop 05/25/18 at 20:59 ; Status DC Warfarin Sodium (Coumadin Per Physician) 1 each PRN DAILY PRN MC SEE COMMENTS Last administered on 05/26/18at 16:15; Start 05/25/18 at 20:45 Vancomycin HCl 1.5 gm/Sodium Chloride 500 ml @ 250 mls/hr Q12H IV Last administered on 05/26/18at 09:39; Start 05/26/18 at 09:00; Stop 05/26/18 at 18:24 ; Status DC Vancomycin HCl (Vancomycin Trough Level) 1 each 1X ONCE MC ; Start 05/27/18 at 08:30; Stop 05/27/18 at 08:30; Status DC Fentanyl Citrate (Fentanyl 2ml Vial) 50 mcg PRN Q3HRS PRN IV SEVERE PAIN Last administered on 05/27/18 08:37; Start 05/25/18 at 22:00 Albuterol Sulfate (Ventolin Neb Soln) 2.5 mg PRN Q6HRS PRN INH SHORTNESS OF BREATH; Start 05/26/18 at 10:15 Allopurinol (Zyloprim) 200 mg DAILY PO ; Start 05/26/18 at 11:00; Stop 05/26/18 at 16:09; Status DC Atorvastatin Calcium (Lipitor) 40 mg QHS PO Last administered on 05/26/18at 20: 15; Start 05/26/18 at 21:00 Cetirizine HCl (ZyrTEC) 10 mg DAILY PO Last administered on 05/27/18 08:11; Start 05/26/18 at 10:30 Tamsulosin HCl (Flomax) 0.4 mg DAILY PO Last administered on 05/27/18at 08:37; Start 05/26/18 at 10:30 Gabapentin (Neurontin) 600 mg BID PO Last administered on 05/27/18at 08:10; Start 05/26/18 at 10:15 Insulin Human Lispro (HumaLOG) 4 units TIDWMEALS SQ Last administered on at 08:27; Start 05/26/18 at 17:00 Insulin Human Lispro (HumaLOG) 0-7 UNITS TIDWMEALS SQ Last administered on 05/26at 18:16; Start 05/26/18 at 17:00 Dextrose (Dextrose 50%-Water Syringe) 12.5 gm PRN Q15MIN PRN IV SEE COMMENTS; Start 05/26/18 at 13:00 Metformin HCl (Glucophage) 1,000 mg BIDWMEALS PO Last administered on at 08:10; Start 05/26/18 at 17:00 Linezolid/Dextrose 300 ml @ 300 mls/hr Q12HR IV Last administered on at 08:13; Start 05/26/18 at 21:00 Active Scripts Active Reported Preparation H Ointment (Phenyleph/Mineral Oil/Petrolat) 28 Gm Oint.appl 28 Gm RC QID Muscle Rub Cream (Methyl Salicylate/Menthol) 113 Gm Cream..g. 1 Gm TP TID Proair Hfa Inhaler (Albuterol Sulfate) 8.5 Gm Hfa.aer.ad 1 Puff INH PRN Q6HRS PRN Zyrtec (Cetirizine Hcl) 10 Mg Tablet 1 Tab PO DAILY Atorvastatin Calcium 40 Mg Tablet 1 Tab PO QHS Metformin Hcl 1,000 Mg Tablet 1,000 Mg PO BIDWMEALS Gabapentin (Gabapentin) 300 Mg Capsule 300 Mg PO DAILY Gabapentin 600 Mg Tablet 600 Mg PO DAILY08 Flomax (Tamsulosin Hcl) 0.4 Mg Cap.er.24h 1 Cap PO DAILY Tylenol (Acetaminophen) 325 Mg Tablet 2 Tab PO TID PRN PRN Humulin R (Insulin Regular, Human) 100 Unit/1 Ml Vial 100 Unit IJ TIDAC Lisinopril 20 Mg Tablet 1 Tab PO DAILY Furosemide 20 Mg Tablet 1 Tab PO DAILY Coumadin (Warfarin Sodium) 4 Mg Tablet 1 Tab PO DAILY Actos (Pioglitazone Hcl) 45 Mg Tablet 1 Tab PO DAILY Novolin N (Nph, Human Insulin Isophane) 100 Unit/1 Ml Vial 20 Unit SQ BID Senna (Sennosides) 8.6 Mg Tablet 2 Mg PO BID Allergies Allergies: Coded Allergies: I S O L A T I O N *CONTACT* (Verified Allergy, Unknown, 04/05/18) mrsa ibuprofen (Verified Adverse Reaction, Intermediate, 05/25/18) Warfarin Physical Exam Physical Exam He has a 2+ palpable dorsalis pedis and posterior tibial left anklegood arterial inflow for wound healing He has 2 large wounds in the left lee with eschar General: Alert, Oriented X3, Cooperative HEENT: Atraumatic, EOMI Lungs: Clear to auscultation, Normal air movement Heart: Regular rate, Normal S1, Normal S2 Abdomen: Normal bowel sounds, Soft Extremities: Normal pulses Skin: No rashes Neuro: Normal speech, Strength at 5/5 X4 ext Psych/Mental Status: Mental status NL MUSCULOSKELETAL: No joint tenderness, No deformity Vitals VITALS Vital Signs Date Time Temp Pulse Resp B/P (MAP) Pulse Ox O2 Delivery O2 Flow Rate FiO2 05/27/18 08:37 19 98 Room Air 05/27/18 08:11 94 110/56 05/27/18 07:20 98.3 98.3 Labs Labs Laboratory Tests Test 05/25/18 19:33 05/25/18 21:37 05/25/18 22:30 05/26/18 04:28 Prothrombin Time 21.4 SEC (11.7-14.0) 21.4 SEC (11.7-14.0) Prothromb Time International Ratio 1.9 (0.8-1.1) 1.9 (0.8-1.1) Lactic Acid Level 2.0 mmol/L (0.4-2.0) Albumin 2.8 g/dL (3.4-5.0) Glucose (Fingerstick) 214 mg/dL (70-99) Nasal Screen MRSA (PCR) Positive (Negative) Test 05/26/18 04:50 05/26/18 07:27 05/26/18 10:42 05/26/18 16:25 Urine Collection Type Unknown Urine Color Yellow Urine Clarity Clear Urine pH 5.5 Urine Specific [place] 1.015 Urine Protein Negative mg/dL (NEG-TRACE) Urine Glucose (UA) 100 mg/dL (NEG) Urine Ketones (Stick) Negative mg/dL (NEG) Urine Blood Negative (NEG) Urine Nitrite Negative (NEG) Urine Bilirubin Negative (NEG) Urine Urobilinogen Dipstick 1.0 mg/dL (0.2 mg/dL) Urine Leukocyte Esterase Negative (NEG) Urine RBC 0 /HPF (0-2) Urine WBC Occ /HPF (0-4) Urine Squamous Epithelial Cells Few /LPF Urine Bacteria 0 /HPF (0-FEW) Glucose (Fingerstick) 160 mg/dL (70-99) 288 mg/dL (70-99) 253 mg/dL (70-99) Test 05/26/18 19:04 05/27/18 07:15 05/27/18 08:25 Glucose (Fingerstick) 246 mg/dL (70-99) 135 mg/dL (70-99) White Blood Count 6.9 x10^3/uL (4.0-11.0) Red Blood Count 2.98 x10^6/uL (4.30-5.70) Hemoglobin 9.5 g/dL (13.0-17.5) Hematocrit 29.8 % (39.0-53.0) Mean Corpuscular Volume 100 fL (79-100) Mean Corpuscular Hemoglobin 32 pg (25-35) Mean Corpuscular Hemoglobin Concent 32 g/dL (31-37) Red Cell Distribution Width 17.8 % (11.5-14.5) Platelet Count 132 x10^3/uL (140-400) Neutrophils (%) (Auto) 67 % (31-73) Lymphocytes (%) (Auto) 26 % (24-48) Monocytes (%) (Auto) 7 % (0-9) Eosinophils (%) (Auto) 1 % (0-3) Basophils (%) (Auto) 0 % (0-3) Neutrophils # (Auto) 4.7 x10^3uL (1.8-7.7) Lymphocytes # (Auto) 1.8 x10^3/uL (1.0-4.8) Monocytes # (Auto) 0.5 x10^3/uL (0.0-1.1) Eosinophils # (Auto) 0.0 x10^3/uL (0.0-0.7) Basophils # (Auto) 0.0 x10^3/uL (0.0-0.2) Prothrombin Time 23.1 SEC (11.7-14.0) Prothromb Time International Ratio 2.1 (0.8-1.1) Sodium Level 140 mmol/L (136-145) Potassium Level 4.3 mmol/L (3.5-5.1) Chloride Level 103 mmol/L (98-107) Carbon Dioxide Level 27 mmol/L (21-32) Anion Gap 10 (6-14) Blood Urea Nitrogen 21 mg/dL (8-26) Creatinine 1.3 mg/dL (0.7-1.3) Estimated GFR (Cockcroft-Gault) 56.7 BUN/Creatinine Ratio 16 (6-20) Glucose Level 184 mg/dL (70-99) Calcium Level 8.2 mg/dL (8.5-10.1) Total Bilirubin 0.5 mg/dL (0.2-1.0) Aspartate Amino Transf (AST/SGOT) 12 U/L (15-37) Alanine Aminotransferase (ALT/SGPT) 15 U/L (16-63) Alkaline Phosphatase 55 U/L (46-116) Total Protein 6.1 g/dL (6.4-8.2) Albumin 2.1 g/dL (3.4-5.0) Albumin/Globulin Ratio 0.5 (1.0-1.7) Laboratory Tests Test 05/26/18 16:25 05/26/18 19:04 05/27/18 07:15 05/27/18 08:25 Glucose (Fingerstick) 253 mg/dL (70-99) 246 mg/dL (70-99) 135 mg/dL (70-99) White Blood Count 6.9 x10^3/uL (4.0-11.0) Red Blood Count 2.98 x10^6/uL (4.30-5.70) Hemoglobin 9.5 g/dL (13.0-17.5) Hematocrit 29.8 % (39.0-53.0) Mean Corpuscular Volume 100 fL (79-100) Mean Corpuscular Hemoglobin 32 pg (25-35) Mean Corpuscular Hemoglobin Concent 32 g/dL (31-37) Red Cell Distribution Width 17.8 % (11.5-14.5) Platelet Count 132 x10^3/uL (140-400) Neutrophils (%) (Auto) 67 % (31-73) Lymphocytes (%) (Auto) 26 % (24-48) Monocytes (%) (Auto) 7 % (0-9) Eosinophils (%) (Auto) 1 % (0-3) Basophils (%) (Auto) 0 % (0-3) Neutrophils # (Auto) 4.7 x10^3uL (1.8-7.7) Lymphocytes # (Auto) 1.8 x10^3/uL (1.0-4.8) Monocytes # (Auto) 0.5 x10^3/uL (0.0-1.1) Eosinophils # (Auto) 0.0 x10^3/uL (0.0-0.7) Basophils # (Auto) 0.0 x10^3/uL (0.0-0.2) Prothrombin Time 23.1 SEC (11.7-14.0) Prothromb Time International Ratio 2.1 (0.8-1.1) Sodium Level 140 mmol/L (136-145) Potassium Level 4.3 mmol/L (3.5-5.1) Chloride Level 103 mmol/L (98-107) Carbon Dioxide Level 27 mmol/L (21-32) Anion Gap 10 (6-14) Blood Urea Nitrogen 21 mg/dL (8-26) Creatinine 1.3 mg/dL (0.7-1.3) Estimated GFR (Cockcroft-Gault) 56.7 BUN/Creatinine Ratio 16 (6-20) Glucose Level 184 mg/dL (70-99) Calcium Level 8.2 mg/dL (8.5-10.1) Total Bilirubin 0.5 mg/dL (0.2-1.0) Aspartate Amino Transf (AST/SGOT) 12 U/L (15-37) Alanine Aminotransferase (ALT/SGPT) 15 U/L (16-63) Alkaline Phosphatase 55 U/L (46-116) Total Protein 6.1 g/dL (6.4-8.2) Albumin 2.1 g/dL (3.4-5.0) Albumin/Globulin Ratio 0.5 (1.0-1.7) Images Images Lower extremity venous reflux study: HISTORY: Nonhealing left calf wound The patient was returned to the department for this exam. Reportedly the 03/01/2018 exam should have been a reflux study rather than the DVT study which was inadvertently performed at that. Duplex evaluation of the saphenous veins in the left lower extremity was performed including grayscale, color-flow and spectral Doppler analysis. There is significant reflux in the greater saphenous vein throughout the left lower extremity. Near the saphenofemoral junction level the greater saphenous vein measures 8.4 mm and demonstrates a reflux time of 1.6 seconds. There is also significant reflux in the left lesser saphenous vein. The vein measures 4.9 mm in the upper aspect of the lower calf and demonstrates a reflux time of 1.9 seconds. 3 incompetent perforating veins were identified in the left calf in the vicinity of the patient's ulcers, as delineated on the technologist worksheet available in the [employer] PACs system. IMPRESSION: Significant reflux is present in the greater saphenous and lesser saphenous veins in the left lower extremity. Left lower extremity arterial duplex: Shows in-line triphasic flow to the left ankle without any stenosis in the [employer] CONTR[employer] CLERK, SFA, popliteal or ANGELICA or MOLD FILLER Assessment/Plan Assessment/Plan #1 left lower extremity nonhealing wounds in a venous stasis distribution #2 excellent arterial inflow no need for arterial intervention #3 he is on Coumadin for DVTINR is 2.1 today #4 the wound base appears necroticwill need surgical debridement. Will likely need a wound VAC after that #5 after the wound is cleaned up he would likely benefit from saphenous vein ablation and possible bandage winding machine operator ablation down the road. He could follow-up in our office for this #6 will ask the primary team to hold his Coumadin and start a heparin drip when his INR is normalized we'll plan surgical debridement of the wound later this week I independently reviewed all of his ultrasounds today. I independently saw and evaluated him. I spent greater than 70 minutes today and review of edges, review of previous records, exam, counseling, and coordination of care. SHELDON CUMMINGS MD May 27, 2018 10:49
[2018-05-27 11:30] VITALS: BP 113/40
[2018-05-27] MEDS: BACITRACIN/POLYMYXIN B TOPICAL OINT 15GM TUBE. TP SCH ×2 (14:02→20:08)
[2018-05-27 15:06] VITALS: BP 103/42
[2018-05-27] MEDS: oxyCODONE/APAP 5/325 1 TAB TABLET PO PRN (15:31)
[2018-05-27 19:30] VITALS: BP 112/50
[2018-05-27] MEDS: LACTOBACILLUS RHAMNOSUS GG 1 CAPSULE. PO SCH (20:07)
[2018-05-27] MEDS: ATORVASTATIN CALCIUM 40 MG TABLET. PO SCH (20:08)
[2018-05-27 23:07] LABS: HEMOGLOBIN A1C 6.9 % (4.8-5.6)
[2018-05-27 23:57] VITALS: BP 121/49
[2018-05-28] MEDS: PIPERACILLIN/TAZOBACTAM 3.375 GM in IV NORMAL SALINE 50ML 50 ML IV SCH ×5 (00:26→22:59)
[2018-05-28] MEDS: fentaNYL PF VIAL 100 MCG/2 ML VIAL IV PRN ×4 (02:38→22:59)
[2018-05-28] MEDS: oxyCODONE/APAP 5/325 1 TAB TABLET PO PRN ×4 (02:38→21:12)
[2018-05-28 03:10] VITALS: BP 107/46
[2018-05-28] MEDS: IPRATRPIUM/ALBUTEROL 0.5/2.5MG 3 ML NEBU. NEB SCH ×6 (04:00→23:35)
[2018-05-28] MEDS: IV NORMAL SALINE 1000ML BAG 1,000 ML IV SCH ×2 (05:59→15:45)
[2018-05-28 06:30] LABS: HEMOGLOBIN 8.7 g/dL (13.0-17.5)
[2018-05-28 06:42] LABS: PROTHROMBIN TIME PATIENT 23.8 SEC (11.7-14.0)
[2018-05-28 07:00] VITALS: BP 109/52
[2018-05-28] MEDS: INSULIN LISPRO 300 UNITS/3 ML INSULN.PEN. SQ SCH ×6 (08:00→17:43)
[2018-05-28] MEDS: BACITRACIN/POLYMYXIN B TOPICAL OINT 15GM TUBE. TP SCH ×3 (08:05→21:01)
[2018-05-28] MEDS: PIOGLITAZONE 15 MG TABLET. PO SCH (08:06)
[2018-05-28] MEDS: GABAPENTIN 300 MG CAPSULE. PO SCH ×2 (08:06→21:00)
[2018-05-28] MEDS: LACTOBACILLUS RHAMNOSUS GG 1 CAPSULE. PO SCH ×2 (08:07→21:02)
[2018-05-28] MEDS: LISINOPRIL 20 MG TABLET PO SCH (08:07)
[2018-05-28] MEDS: CETIRIZINE HCL 10 MG TABLET. PO SCH (08:07)
[2018-05-28] MEDS: SENNOSIDES 8.6 MG TABLET PO SCH ×2 (08:07→21:00)
[2018-05-28] MEDS: metFORMIN 500 MG TABLET PO SCH ×2 (08:07→17:32)
[2018-05-28] MEDS: TAMSULOSIN 0.4 MG CAP.ER.24H. PO SCH (08:08)
[2018-05-28] MEDS: INSULIN GLARGINE 300 UNITS/3 ML INSULN.PEN. SQ SCH ×2 (08:10→21:12)
[2018-05-28] MEDS ORDERED: HEPARIN for IV BOLUS 10,000 UNIT/10 ML VIAL. IV PRN (09:00)
[2018-05-28] MEDS: HEPARIN 25,000UTS/500ML PREMIX 500 ML IV PRN ×2 (09:07→22:08)
--- NOTE | 2018-05-28 10:11 | NUR ---
IP: Pt has a hx of mrsa in a leg wound on 03/30/18. Pt to be in contact precautions until there is no further wounds and a nasal screen is negative.
[2018-05-28 11:00] VITALS: BP 109/49
--- NOTE | 2018-05-28 11:00 | NUR ---
Wound care: Patient seen per wound care consult. See wound assessment. Patient is well known to us in the wound clinic. Dressings removed and wounds cleansed and assessed. Wounds continue to deteriorate Recommendations to dress with Honey alginate, ABD pads, and kerlix. Patient will have a surgical debridement per patient's chart as soon as INR is therapeutic for surgery. Patient on heparin gtt at this time. Dressings applied and patient tolerated with minimal pain. No other wounds noted upon complete head to toe assessment. Dressing change instructions left in room as well as the honey alginate for dressing changes. Wound care will follow up with patient after surgical debridement. Spoke with RN regarding POC.
--- NOTE | 2018-05-28 11:34 | PDOC ---
Infectious Disease Note Subjective Subjective pt is feeling better, still have left leg pain ROS ROS no n/v/d/sob Vital Sign Vital Signs Vital Signs Date Time Temp Pulse Resp B/P (MAP) Pulse Ox O2 Delivery O2 Flow Rate FiO2 05/28/18 08:21 97 Room Air 05/28/18 08:07 83 109/52 05/28/18 07:00 97.6 16 97.6 Physical Exam PHYSICAL EXAM GENERAL: Propped up in bed, alert, NAD HEENT: Pupils equally round. Normal conjunctivae. Oral cavity: Pharynx pink and moist. No lesions. NECK: Supple. LUNGS: Clear to auscultation. HEART: S1 and S2. ABDOMEN: Obese, soft and nontender with bowel sounds present. EXTREMITIES: Unremarkable except for 2 fairly large annular ulcers on anterior left leg with black dry base and surrounding warmth, edema and redness extending medially to the thigh area. Distal pulses palpable. SKIN: Developing herpetic-type lesions around the mouth and nasal folds NEUROLOGIC: Alert and responds appropriately. PIV ok Labs Lab Laboratory Tests Test 05/27/18 16:46 05/27/18 20:47 05/28/18 05:38 05/28/18 07:04 Glucose (Fingerstick) 186 mg/dL (70-99) 252 mg/dL (70-99) 139 mg/dL (70-99) Hemoglobin 8.7 g/dL (13.0-17.5) Platelet Count 122 x10^3/uL (140-400) Prothrombin Time 23.8 SEC (11.7-14.0) Prothromb Time International Ratio 2.2 (0.8-1.1) Micro Microbiology 05/25/18 Blood Culture - Preliminary, Resulted NO GROWTH AFTER 2 DAYS Objective Assessment 1. Cellulitis of left lower extremity. 2. Nonhealing wounds of left lower extremity since 2017, now with eschar. 3. Fever. 4. Diabetes with peripheral neuropathy. 5. Peripheral vascular disease. 6. History of deep venous thrombosis, on warfarin therapy. 7. 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 He is followed by Dr. Schneider in [place] and takes Sutent for treatment per the patient. 8. Solitary kidney. 9. Incarceration. Plan Plan of Care Zyvox and Zosyn May need further imaging of LLE and debridement Awaiting vascular eval wound cultures pending NGTD CPK pending Contact isolation d/w nursing PETEY MARSHALL MD May 28, 2018 11:33
[2018-05-28] MEDS: ANTI-COAG MONITOR BY PHARMACY. MC PRN (12:09)
--- NOTE | 2018-05-28 12:27 | PDOC ---
PROGRESS NOTES Subjective Subjective Patient seen and examined in room, patient c/o left lower extremity pain, swelling and ulceration. Objective Objective Vital Signs Date Time Temp Pulse Resp B/P (MAP) Pulse Ox O2 Delivery O2 Flow Rate FiO2 05/28/18 12:01 99 Room Air 05/28/18 11:00 97.9 83 18 109/49 (69) 97.9 Intake and Output 05/28/18 06:59 Intake Total 1340 ml Output Total 2325 ml Balance -985 ml Intake Oral 1340 ml Output Urine Total 2325 ml # Voids 5 # Bowel Movements 1 Physical Exam Physical Exam Awake and alert HRR Left lower extremity swelling, tenderness and erythema medial thigh and calf. 2 large wounds with dark eschar. Palpable DP pulse. Assessment Assessment #1 Left lower extremity nonhealing wounds, venous insufficiency with noted venous reflux and incompetent perforators. Cellulitis with management per ID. #2 Excellent arterial inflow no need for arterial intervention #3 Coumadin for DVTINR is 2.2 today #4 Wound base appears necroticwill need surgical debridement. Will likely need a wound VAC after that #5 Patient would likely benefit from saphenous vein ablation and possible auto wash buffer ablation. I have arranged for patient to have US with office visit with Dr. John 06/19/2018 1:40. #6 Continue to hold Coumadin and continue heparin dripwhen his INR is normalized we'll plan surgical debridement of the wound later this week. Time spent greater than 45 minutes today and review of images, review of previous records, exam, counseling, and coordination of care. JOSELYN SINGH APRN May 28, 2018 12:27
--- NOTE | 2018-05-28 13:04 | PDOC ---
PROGRESS NOTES Chief Complaint Chief Complaint 1. marked complicated acute cellulitis left lower leg 2. diabetes 2, mod control 3. hypertension 4. leg wound with cellullitis in DM2 5. OBESITY, BMI 38 6. [place] prisoner low security 7. mod protein, caloric malnutrition History of Present Illness History of Present Illness Seen today. INR 2.2. On heparin GTT, awaiting INR to come down to prepare for repeat surgery later this week, would expect 05/30 or 05/31 iv zosyn and vanc Vascular surg has seen DM2 control, add SSI, wound care consult, pain control, A1c hgb in AM arterial doppler both legs OK CBC, COMP Vitals Vitals Vital Signs Date Time Temp Pulse Resp B/P (MAP) Pulse Ox O2 Delivery O2 Flow Rate FiO2 05/28/18 12:55 99 Room Air 05/28/18 11:00 97.9 83 18 109/49 (69) 97.9 Physical Exam Physical Exam GENERAL: Propped up in bed, alert, NAD HEENT: Pupils equally round. Normal conjunctivae. Oral cavity: Pharynx pink and moist. No lesions. NECK: Supple. LUNGS: Clear to auscultation. HEART: S1 and S2. ABDOMEN: Obese, soft and nontender with bowel sounds present. EXTREMITIES: Unremarkable except for 2 fairly large annular ulcers on anterior left leg with black dry base and surrounding warmth, edema and redness extending medially to the thigh area. Distal pulses palpable. SKIN: Developing herpetic-type lesions around the mouth and nasal folds NEUROLOGIC: Alert and responds appropriately. PIV ok General: Alert, Oriented X3, Cooperative Heart: Regular rate, Normal S1, Normal S2 Abdomen: Normal bowel sounds, Soft Extremities: Normal pulses Skin: No rashes Labs LABS Laboratory Tests Test 05/27/18 16:46 05/27/18 20:47 05/28/18 05:38 05/28/18 07:04 Glucose (Fingerstick) 186 mg/dL (70-99) 252 mg/dL (70-99) 139 mg/dL (70-99) Hemoglobin 8.7 g/dL (13.0-17.5) Platelet Count 122 x10^3/uL (140-400) Prothrombin Time 23.8 SEC (11.7-14.0) Prothromb Time International Ratio 2.2 (0.8-1.1) Test 05/28/18 12:18 Glucose (Fingerstick) 274 mg/dL (70-99) Comment Review of Relevant I have reviewed the following items anjana (where applicable) has been applied. Labs Laboratory Tests Test 05/26/18 16:25 05/26/18 19:04 05/27/18 07:15 05/27/18 08:25 Glucose (Fingerstick) 253 mg/dL (70-99) 246 mg/dL (70-99) 135 mg/dL (70-99) White Blood Count 6.9 x10^3/uL (4.0-11.0) Red Blood Count 2.98 x10^6/uL (4.30-5.70) Hemoglobin 9.5 g/dL (13.0-17.5) Hematocrit 29.8 % (39.0-53.0) Mean Corpuscular Volume 100 fL (79-100) Mean Corpuscular Hemoglobin 32 pg (25-35) Mean Corpuscular Hemoglobin Concent 32 g/dL (31-37) Red Cell Distribution Width 17.8 % (11.5-14.5) Platelet Count 132 x10^3/uL (140-400) Neutrophils (%) (Auto) 67 % (31-73) Lymphocytes (%) (Auto) 26 % (24-48) Monocytes (%) (Auto) 7 % (0-9) Eosinophils (%) (Auto) 1 % (0-3) Basophils (%) (Auto) 0 % (0-3) Neutrophils # (Auto) 4.7 x10^3uL (1.8-7.7) Lymphocytes # (Auto) 1.8 x10^3/uL (1.0-4.8) Monocytes # (Auto) 0.5 x10^3/uL (0.0-1.1) Eosinophils # (Auto) 0.0 x10^3/uL (0.0-0.7) Basophils # (Auto) 0.0 x10^3/uL (0.0-0.2) Prothrombin Time 23.1 SEC (11.7-14.0) Prothromb Time International Ratio 2.1 (0.8-1.1) Sodium Level 140 mmol/L (136-145) Potassium Level 4.3 mmol/L (3.5-5.1) Chloride Level 103 mmol/L (98-107) Carbon Dioxide Level 27 mmol/L (21-32) Anion Gap 10 (6-14) Blood Urea Nitrogen 21 mg/dL (8-26) Creatinine 1.3 mg/dL (0.7-1.3) Estimated GFR (Cockcroft-Gault) 56.7 BUN/Creatinine Ratio 16 (6-20) Glucose Level 184 mg/dL (70-99) Hemoglobin A1c 6.9 % (4.8-5.6) Calcium Level 8.2 mg/dL (8.5-10.1) Total Bilirubin 0.5 mg/dL (0.2-1.0) Aspartate Amino Transf (AST/SGOT) 12 U/L (15-37) Alanine Aminotransferase (ALT/SGPT) 15 U/L (16-63) Alkaline Phosphatase 55 U/L (46-116) Creatine Kinase 42 U/L (39-308) Total Protein 6.1 g/dL (6.4-8.2) Albumin 2.1 g/dL (3.4-5.0) Albumin/Globulin Ratio 0.5 (1.0-1.7) Test 05/27/18 11:26 05/27/18 16:46 05/27/18 20:47 05/28/18 05:38 Glucose (Fingerstick) 339 mg/dL (70-99) 186 mg/dL (70-99) 252 mg/dL (70-99) Hemoglobin 8.7 g/dL (13.0-17.5) Platelet Count 122 x10^3/uL (140-400) Prothrombin Time 23.8 SEC (11.7-14.0) Prothromb Time International Ratio 2.2 (0.8-1.1) Test 05/28/18 07:04 05/28/18 12:18 Glucose (Fingerstick) 139 mg/dL (70-99) 274 mg/dL (70-99) Laboratory Tests Test 05/27/18 16:46 05/27/18 20:47 05/28/18 05:38 05/28/18 07:04 Glucose (Fingerstick) 186 mg/dL (70-99) 252 mg/dL (70-99) 139 mg/dL (70-99) Hemoglobin 8.7 g/dL (13.0-17.5) Platelet Count 122 x10^3/uL (140-400) Prothrombin Time 23.8 SEC (11.7-14.0) Prothromb Time International Ratio 2.2 (0.8-1.1) Test 05/28/18 12:18 Glucose (Fingerstick) 274 mg/dL (70-99) Microbiology 05/25/18 Blood Culture - Preliminary, Resulted NO GROWTH AFTER 2 DAYS Medications Current Medications Sodium Chloride 1,000 ml @ 100 mls/hr Q10H IV Last administered on 05/28/18at 05:59; Start 05/25/18 at 17:54 Ondansetron HCl (Zofran) 4 mg PRN Q4HRS PRN IV NAUSEA/VOMITING; Start 05/25/18 at 18:00 Zolpidem Tartrate (Ambien) 5 mg PRN QHS PRN PO INSOMNIA; Start 05/25/18 at 18: 00 Acetaminophen (Tylenol) 650 mg PRN Q4HRS PRN PO TEMP OVER 100.4F OR MILD PAIN Last administered on 05/26/18at 22:46; Start 05/25/18 at 18:00 Al Hydroxide/Mg Hydroxide (Mylanta Plus Xs) 30 ml PRN DAILY PRN PO HEARTBURN / GAS Last administered on 05/27/18 17:49; Start 05/25/18 at 18:00 Clonidine HCl (Catapres) 0.1 mg PRN Q6HRS PRN PO SBP>160 OR DBP>90; Start 05/25 at 18:00 Diphenhydramine HCl (Benadryl) 25 mg PRN Q4HRS PRN IVP ITCHING; Start 05/25/18 at 18:00 Docusate Sodium (Colace) 100 mg PRN BID PRN PO CONSTIPATION; Start 05/25/18 at 18:00 Albuterol/ Ipratropium (Duoneb) 3 ml Q4HRS NEB Last administered on 05/28/18at 07:36; Start 05/25/18 at 20:00 Guaifenesin (Robitussin) 200 mg PRN Q4HRS PRN PO COUGH; Start 05/25/18 at 18:00 Lorazepam (Ativan) 0.5 mg PRN Q4HRS PRN PO ANXIETY / AGITATION Last administered on 05/26/18 04:30; Start 05/25/18 at 18:00 Enoxaparin Sodium (Lovenox 40mg Syringe) 40 mg DAILY SQ Last administered on 09:39; Start 05/26/18 at 09:00; Stop 05/26/18 at 16:30; Status DC Piperacillin Sod/ Tazobactam Sod 3.375 gm/Sodium Chloride 50 ml @ 100 mls/hr Q6HRS IV Last administered on 05/28/18at 12:03; Start 05/25/18 at 18:10 Acetaminophen (Tylenol) 650 mg TID PRN PRN PO PAIN; Start 05/25/18 at 18:15; Status UNV Furosemide (Lasix) 20 mg DAILY PO ; Start 05/26/18 at 09:00; Stop 05/27/18 at 13 :28; Status DC Lisinopril (Prinivil) 20 mg DAILY PO Last administered on 05/28/18 08:07; Start 05/26/18 at 09:00 Insulin Glargine (Lantus) 20 units BID SQ Last administered on 05/28/18 08:10 ; Start 05/25/18 at 21:00 Pioglitazone HCl (Actos) 45 mg DAILY PO Last administered on 05/28/18 08:06; Start 05/26/18 at 09:00 Sennosides (Senna) 17.2 mg BID PO Last administered on 05/28/18 08:07; Start 05/25/18 at 21:00 Warfarin Sodium (Coumadin) 4 mg DAILY16 PO Last administered on 05/26/18 18:06 ; Start 05/25/18 at 21:00; Stop 05/27/18 at 11:16; Status DC Piperacillin Sod/ Tazobactam Sod 3.375 gm/Sodium Chloride 50 ml @ 100 mls/hr Q6HRS IV ; Start 05/26/18 at 00:00; Status UNV Vancomycin HCl (Vanco Per Pharmacy) 1 each PRN DAILY PRN MC SEE COMMENTS Last administered on 05/26/18 16:08; Start 05/25/18 at 18:45; Stop 05/26/18 at 18:24 ; Status DC Vancomycin HCl 2 gm/Sodium Chloride 500 ml @ 250 mls/hr 1X ONCE IV Last administered on 3/15/19at 22:34; Start 05/25/18 at 19:00; Stop 05/25/18 at 20:59 ; Status DC Warfarin Sodium (Coumadin Per Physician) 1 each PRN DAILY PRN MC SEE COMMENTS Last administered on 05/26/18at 16:15; Start 05/25/18 at 20:45; Stop 05/27/18 at 11:16; Status DC Vancomycin HCl 1.5 gm/Sodium Chloride 500 ml @ 250 mls/hr Q12H IV Last administered on 05/26/18at 09:39; Start 05/26/18 at 09:00; Stop 05/26/18 at 18:24 ; Status DC Vancomycin HCl (Vancomycin Trough Level) 1 each 1X ONCE MC ; Start 05/27/18 at 08:30; Stop 05/27/18 at 08:30; Status DC Fentanyl Citrate (Fentanyl 2ml Vial) 50 mcg PRN Q3HRS PRN IV MODERATE TO SEVERE PAIN Last administered on 05/28/18at 12:01; Start 05/25/18 at 22:00 Albuterol Sulfate (Ventolin Neb Soln) 2.5 mg PRN Q6HRS PRN INH SHORTNESS OF BREATH; Start 05/26/18 at 10:15 Allopurinol (Zyloprim) 200 mg DAILY PO ; Start 05/26/18 at 11:00; Stop 05/26/18 at 16:09; Status DC Atorvastatin Calcium (Lipitor) 40 mg QHS PO Last administered on 05/27/18at 20: 08; Start 05/26/18 at 21:00 Cetirizine HCl (ZyrTEC) 10 mg DAILY PO Last administered on 05/28/18at 08:07; Start 05/26/18 at 10:30 Tamsulosin HCl (Flomax) 0.4 mg DAILY PO Last administered on 05/28/18at 08:08; Start 05/26/18 at 10:30 Gabapentin (Neurontin) 600 mg BID PO Last administered on 05/27/18at 08:10; Start 05/26/18 at 10:15; Stop 05/27/18 at 13:29; Status DC Insulin Human Lispro (HumaLOG) 4 units TIDWMEALS SQ Last administered on at 12:45; Start 05/26/18 at 17:00 Insulin Human Lispro (HumaLOG) 0-7 UNITS TIDWMEALS SQ Last administered on 05/28at 12:46; Start 05/26/18 at 17:00 Dextrose (Dextrose 50%-Water Syringe) 12.5 gm PRN Q15MIN PRN IV SEE COMMENTS; Start 05/26/18 at 13:00 Metformin HCl (Glucophage) 1,000 mg BIDWMEALS PO Last administered on 08:07; Start 05/26/18 at 17:00 Linezolid/Dextrose 300 ml @ 300 mls/hr Q12HR IV Last administered on 08:05; Start 05/26/18 at 21:00 Heparin Sodium/ Dextrose 500 ml @ 0 mls/hr CONT PRN IV SEE I/O RECORD Last administered on 05/28/18at 09:07; Start 05/28/18 at 09:00 Heparin Sodium (Porcine) (Heparin Sodium) 3,400 unit PRN Q6HRS PRN IV FOR UFH LEVEL LESS THAN 0.2; Start 05/28/18 at 09:00 Heparin Sodium (Porcine) (Heparin Sodium) 1,700 unit PRN Q6HRS PRN IV FOR UFH LEVEL 0.2 - 0.29; Start 05/28/18 at 09:00 Info (Anti-Coagulation Monitoring By Pharmacy) 1 each PRN DAILY PRN MC SEE COMMENTS Last administered on 05/28/18at 12:09; Start 05/27/18 at 11:30 Lactobacillus Rhamnosus (Culturelle) 1 cap BID PO Last administered on 08:07; Start 05/27/18 at 21:00 Bacitracin/ Polymyxin B Sulfate (Polysporin) 1 ana TID TP Last administered on 05/28/18 08:05; Start 05/27/18 at 14:00 Gabapentin (Neurontin) 600 mg DAILY08 PO Last administered on 05/28/18 08:06; Start 05/28/18 at 08:00 Gabapentin (Neurontin) 900 mg HS PO Last administered on 05/27/18at 20:07; Start 05/27/18 at 21:00 Oxycodone/ Acetaminophen (Percocet 5/325) 1 tab PRN Q4HRS PRN PO MODERATE TO SEVERE PAIN Last administered on 05/28/18at 12:01; Start 05/27/18 at 14:30 Active Scripts Active Reported Preparation H Ointment (Phenyleph/Mineral Oil/Petrolat) 28 Gm Oint.appl 28 Gm RC QID Muscle Rub Cream (Methyl Salicylate/Menthol) 113 Gm Cream..g. 1 Gm TP TID Proair Hfa Inhaler (Albuterol Sulfate) 8.5 Gm Hfa.aer.ad 1 Puff INH PRN Q6HRS PRN Zyrtec (Cetirizine Hcl) 10 Mg Tablet 1 Tab PO DAILY Atorvastatin Calcium 40 Mg Tablet 1 Tab PO QHS Metformin Hcl 1,000 Mg Tablet 1,000 Mg PO BIDWMEALS Gabapentin (Gabapentin) 300 Mg Capsule 300 Mg PO DAILY Gabapentin 600 Mg Tablet 600 Mg PO DAILY08 Flomax (Tamsulosin Hcl) 0.4 Mg Cap.er.24h 1 Cap PO DAILY Tylenol (Acetaminophen) 325 Mg Tablet 2 Tab PO TID PRN PRN Humulin R (Insulin Regular, Human) 100 Unit/1 Ml Vial 100 Unit IJ TIDAC Lisinopril 20 Mg Tablet 1 Tab PO DAILY Furosemide 20 Mg Tablet 1 Tab PO DAILY Coumadin (Warfarin Sodium) 4 Mg Tablet 1 Tab PO DAILY Actos (Pioglitazone Hcl) 45 Mg Tablet 1 Tab PO DAILY Novolin N (Nph, Human Insulin Isophane) 100 Unit/1 Ml Vial 20 Unit SQ BID Senna (Sennosides) 8.6 Mg Tablet 2 Mg PO BID Vitals/I & O Vital Sign - Last 24 Hours 05/27/18 05/27/18 05/27/18 05/27/18 13:30 15:06 15:31 15:31 Temp 98.8 98.8 Pulse 94 Resp 18 18 19 B/P (MAP) 103/42 (62) Pulse Ox 94 94 97 O2 Delivery Room Air Room Air Room Air 05/27/18 05/27/18 05/27/18 05/27/18 16:35 19:30 19:34 19:43 Temp 98.9 98.9 Pulse 98 Resp 18 B/P (MAP) 112/50 (70) Pulse Ox 97 97 O2 Delivery Room Air Room Air Room Air 05/27/18 05/27/18 05/27/18 05/27/18 20:00 22:30 23:37 23:57 Temp 98.2 98.2 Pulse 95 Resp 16 B/P (MAP) 121/49 (73) Pulse Ox 97 99 O2 Delivery Room Air Room Air Room Air Room Air 05/28/18 05/28/18 05/28/18 05/28/18 02:38 02:38 03:10 07:00 Temp 97.5 97.6 97.5 97.6 Pulse 91 83 Resp 16 16 B/P (MAP) 107/46 (66) 109/52 (71) Pulse Ox 96 97 O2 Delivery Room Air Room Air Room Air Room Air 05/28/18 05/28/18 05/28/18 05/28/18 07:33 07:33 07:36 08:00 Pulse Ox 96 96 97 O2 Delivery Room Air Room Air Room Air Room Air 05/28/18 05/28/18 05/28/18 05/28/18 08:07 11:00 12:01 12:01 Temp 97.9 97.9 Pulse 83 83 Resp 18 B/P (MAP) 109/52 109/49 (69) Pulse Ox 99 99 99 O2 Delivery Room Air Room Air Room Air 05/28/18 05/28/18 12:55 12:55 Pulse Ox 99 99 O2 Delivery Room Air Room Air Intake and Output 05/27/18 05/27/18 05/28/18 15:00 23:00 07:00 Intake Total 600 ml 540 ml 200 ml Output Total 1425 ml 900 ml Balance -825 ml -360 ml 200 ml KATT MURILLO MD May 28, 2018 13:04
[2018-05-28 15:00] VITALS: BP 129/55
[2018-05-28] MEDS: HEPARIN for IV BOLUS 10,000 UNIT/10 ML VIAL. IV PRN (15:45)
[2018-05-28] MEDS: ASCORBIC ACID 500 MG TABLET PO SCH (17:33)
[2018-05-28] MEDS: MULTIVITAMIN with MINERAL TABLET. PO SCH (17:33)
[2018-05-28 19:48] VITALS: BP_SYST 105; BP_SYST 128; BP_DIAS 60; BP_DIAS 76
[2018-05-28] MEDS: ATORVASTATIN CALCIUM 40 MG TABLET. PO SCH (21:00)
[2018-05-28 23:11] VITALS: BP 113/58
[2018-05-29] MEDS: oxyCODONE/APAP 5/325 1 TAB TABLET PO PRN ×4 (01:31→21:21)
[2018-05-29 03:50] VITALS: BP 115/56
[2018-05-29] MEDS: IPRATRPIUM/ALBUTEROL 0.5/2.5MG 3 ML NEBU. NEB SCH ×6 (03:56→23:23)
[2018-05-29] MEDS: fentaNYL PF VIAL 100 MCG/2 ML VIAL IV PRN ×4 (04:10→21:21)
[2018-05-29] MEDS: IV NORMAL SALINE 1000ML BAG 1,000 ML IV SCH ×2 (04:10→11:54)
[2018-05-29 05:18] LABS: HEMATOCRIT 27.8 % (39.0-53.0); HEMOGLOBIN 8.9 g/dL (13.0-17.5); RED BLOOD COUNT 2.79 x10^6/uL (4.30-5.70); RED CELL DISTRIBUTION WIDTH 17.8 % (11.5-14.5); WHITE BLOOD COUNT 5.2 x10^3/uL (4.0-11.0)
[2018-05-29] MEDS: PIPERACILLIN/TAZOBACTAM 3.375 GM in IV NORMAL SALINE 50ML 50 ML IV SCH ×3 (05:48→17:52)
[2018-05-29 07:00] VITALS: BP 106/54
--- NOTE | 2018-05-29 07:59 | PDOC ---
PROGRESS NOTES Chief Complaint Chief Complaint 1. marked complicated acute cellulitis left lower leg 2. diabetes 2, mod control 3. hypertension 4. leg wound with cellullitis in DM2 5. OBESITY, BMI 38 6. [place] prisoner low security 7. mod protein, caloric malnutrition History of Present Illness History of Present Illness Seen today. INR 2.1. On heparin GTT Wound culture shows staph aureus. He still has pretty significant pain. Plan: iv zosyn and vanc - ID seeing Vascular surg has seen - awaiting INR to come down to prepare for repeat surgery later this week, would expect 05/30 or 05/31 DM2 control, add SSI, wound care consult, pain control, A1c hgb in AM arterial doppler both legs OK CBC, COMP Vitals Vitals Vital Signs Date Time Temp Pulse Resp B/P (MAP) Pulse Ox O2 Delivery O2 Flow Rate FiO2 05/29/18 07:50 Room Air 05/29/18 04:40 18 94 05/29/18 03:50 97.5 81 115/56 (75) 97.5 Physical Exam Physical Exam GENERAL: Propped up in bed, alert, NAD HEENT: Pupils equally round. Normal conjunctivae. Oral cavity: Pharynx pink and moist. No lesions. NECK: Supple. LUNGS: Clear to auscultation. HEART: S1 and S2. ABDOMEN: Obese, soft and nontender with bowel sounds present. EXTREMITIES: Unremarkable except for 2 fairly large annular ulcers on anterior left leg with black dry base and surrounding warmth, edema and redness extending medially to the thigh area. Distal pulses palpable. SKIN: Developing herpetic-type lesions around the mouth and nasal folds NEUROLOGIC: Alert and responds appropriately. PIV ok General: Alert, Oriented X3, Cooperative Heart: Regular rate, Normal S1, Normal S2 Abdomen: Normal bowel sounds, Soft Extremities: Normal pulses Skin: No rashes Labs LABS Laboratory Tests Test 05/28/18 12:18 05/28/18 14:50 05/28/18 16:52 05/28/18 20:31 Glucose (Fingerstick) 274 mg/dL (70-99) 194 mg/dL (70-99) 174 mg/dL (70-99) Heparin Anti-Xa Act, Unfractionated 0.21 IU/mL (0.30-0.70) Test 05/28/18 21:50 05/29/18 05:00 Heparin Anti-Xa Act, Unfractionated 0.34 IU/mL (0.30-0.70) 0.40 IU/mL (0.30-0.70) White Blood Count 5.2 x10^3/uL (4.0-11.0) Red Blood Count 2.79 x10^6/uL (4.30-5.70) Hemoglobin 8.9 g/dL (13.0-17.5) Hematocrit 27.8 % (39.0-53.0) Mean Corpuscular Volume 100 fL (79-100) Mean Corpuscular Hemoglobin 32 pg (25-35) Mean Corpuscular Hemoglobin Concent 32 g/dL (31-37) Red Cell Distribution Width 17.8 % (11.5-14.5) Platelet Count 129 x10^3/uL (140-400) Comment Review of Relevant I have reviewed the following items anjana (where applicable) has been applied. Labs Laboratory Tests Test 05/27/18 08:25 05/27/18 11:26 05/27/18 16:46 05/27/18 20:47 White Blood Count 6.9 x10^3/uL (4.0-11.0) Red Blood Count 2.98 x10^6/uL (4.30-5.70) Hemoglobin 9.5 g/dL (13.0-17.5) Hematocrit 29.8 % (39.0-53.0) Mean Corpuscular Volume 100 fL (79-100) Mean Corpuscular Hemoglobin 32 pg (25-35) Mean Corpuscular Hemoglobin Concent 32 g/dL (31-37) Red Cell Distribution Width 17.8 % (11.5-14.5) Platelet Count 132 x10^3/uL (140-400) Neutrophils (%) (Auto) 67 % (31-73) Lymphocytes (%) (Auto) 26 % (24-48) Monocytes (%) (Auto) 7 % (0-9) Eosinophils (%) (Auto) 1 % (0-3) Basophils (%) (Auto) 0 % (0-3) Neutrophils # (Auto) 4.7 x10^3uL (1.8-7.7) Lymphocytes # (Auto) 1.8 x10^3/uL (1.0-4.8) Monocytes # (Auto) 0.5 x10^3/uL (0.0-1.1) Eosinophils # (Auto) 0.0 x10^3/uL (0.0-0.7) Basophils # (Auto) 0.0 x10^3/uL (0.0-0.2) Prothrombin Time 23.1 SEC (11.7-14.0) Prothromb Time International Ratio 2.1 (0.8-1.1) Sodium Level 140 mmol/L (136-145) Potassium Level 4.3 mmol/L (3.5-5.1) Chloride Level 103 mmol/L (98-107) Carbon Dioxide Level 27 mmol/L (21-32) Anion Gap 10 (6-14) Blood Urea Nitrogen 21 mg/dL (8-26) Creatinine 1.3 mg/dL (0.7-1.3) Estimated GFR (Cockcroft-Gault) 56.7 BUN/Creatinine Ratio 16 (6-20) Glucose Level 184 mg/dL (70-99) Hemoglobin A1c 6.9 % (4.8-5.6) Calcium Level 8.2 mg/dL (8.5-10.1) Total Bilirubin 0.5 mg/dL (0.2-1.0) Aspartate Amino Transf (AST/SGOT) 12 U/L (15-37) Alanine Aminotransferase (ALT/SGPT) 15 U/L (16-63) Alkaline Phosphatase 55 U/L (46-116) Creatine Kinase 42 U/L (39-308) Total Protein 6.1 g/dL (6.4-8.2) Albumin 2.1 g/dL (3.4-5.0) Albumin/Globulin Ratio 0.5 (1.0-1.7) Glucose (Fingerstick) 339 mg/dL (70-99) 186 mg/dL (70-99) 252 mg/dL (70-99) Test 05/28/18 05:38 05/28/18 07:04 05/28/18 12:18 05/28/18 14:50 Hemoglobin 8.7 g/dL (13.0-17.5) Platelet Count 122 x10^3/uL (140-400) Prothrombin Time 23.8 SEC (11.7-14.0) Prothromb Time International Ratio 2.2 (0.8-1.1) Glucose (Fingerstick) 139 mg/dL (70-99) 274 mg/dL (70-99) Heparin Anti-Xa Act, Unfractionated 0.21 IU/mL (0.30-0.70) Test 05/28/18 16:52 05/28/18 20:31 05/28/18 21:50 05/29/18 05:00 Glucose (Fingerstick) 194 mg/dL (70-99) 174 mg/dL (70-99) Heparin Anti-Xa Act, Unfractionated 0.34 IU/mL (0.30-0.70) 0.40 IU/mL (0.30-0.70) White Blood Count 5.2 x10^3/uL (4.0-11.0) Red Blood Count 2.79 x10^6/uL (4.30-5.70) Hemoglobin 8.9 g/dL (13.0-17.5) Hematocrit 27.8 % (39.0-53.0) Mean Corpuscular Volume 100 fL (79-100) Mean Corpuscular Hemoglobin 32 pg (25-35) Mean Corpuscular Hemoglobin Concent 32 g/dL (31-37) Red Cell Distribution Width 17.8 % (11.5-14.5) Platelet Count 129 x10^3/uL (140-400) Laboratory Tests Test 05/28/18 12:18 05/28/18 14:50 05/28/18 16:52 05/28/18 20:31 Glucose (Fingerstick) 274 mg/dL (70-99) 194 mg/dL (70-99) 174 mg/dL (70-99) Heparin Anti-Xa Act, Unfractionated 0.21 IU/mL (0.30-0.70) Test 05/28/18 21:50 05/29/18 05:00 Heparin Anti-Xa Act, Unfractionated 0.34 IU/mL (0.30-0.70) 0.40 IU/mL (0.30-0.70) White Blood Count 5.2 x10^3/uL (4.0-11.0) Red Blood Count 2.79 x10^6/uL (4.30-5.70) Hemoglobin 8.9 g/dL (13.0-17.5) Hematocrit 27.8 % (39.0-53.0) Mean Corpuscular Volume 100 fL (79-100) Mean Corpuscular Hemoglobin 32 pg (25-35) Mean Corpuscular Hemoglobin Concent 32 g/dL (31-37) Red Cell Distribution Width 17.8 % (11.5-14.5) Platelet Count 129 x10^3/uL (140-400) Microbiology 05/25/18 Blood Culture - Preliminary, Resulted NO GROWTH AFTER 3 DAYS 05/26/18 Urine Culture - Final, Complete 05/26/18 Urine Culture Result 1 (LUCY) - Final, Complete 05/26/18 Anaerobic/Aerobic Culture, Resulted Pending 05/26/18 Anaerobic Culture Result 1 (LUCY), Resulted Pending 05/26/18 Aerobic Culture, Resulted Pending 05/26/18 Aerobic Culture Result 1 (LUCY), Resulted Pending 05/26/18 Gram Stain - Final, Resulted 05/26/18 Gram Stain Result 1 (LUCY) - Final, Resulted 05/26/18 Gram Stain Result 2 (LUCY) - Final, Resulted Medications Current Medications Sodium Chloride 1,000 ml @ 100 mls/hr Q10H IV Last administered on 05/29/18at 04:10; Start 05/25/18 at 17:54 Ondansetron HCl (Zofran) 4 mg PRN Q4HRS PRN IV NAUSEA/VOMITING; Start 05/25/18 at 18:00 Zolpidem Tartrate (Ambien) 5 mg PRN QHS PRN PO INSOMNIA; Start 05/25/18 at 18: 00 Acetaminophen (Tylenol) 650 mg PRN Q4HRS PRN PO TEMP OVER 100.4F OR MILD PAIN Last administered on 05/26/18at 22:46; Start 05/25/18 at 18:00 Al Hydroxide/Mg Hydroxide (Mylanta Plus Xs) 30 ml PRN DAILY PRN PO HEARTBURN / GAS Last administered on 05/27/18at 17:49; Start 05/25/18 at 18:00 Clonidine HCl (Catapres) 0.1 mg PRN Q6HRS PRN PO SBP>160 OR DBP>90; Start 05/25 at 18:00 Diphenhydramine HCl (Benadryl) 25 mg PRN Q4HRS PRN IVP ITCHING; Start 05/25/18 at 18:00 Docusate Sodium (Colace) 100 mg PRN BID PRN PO CONSTIPATION; Start 05/25/18 at 18:00 Albuterol/ Ipratropium (Duoneb) 3 ml Q4HRS NEB Last administered on 05/29/18 07:49; Start 05/25/18 at 20:00 Guaifenesin (Robitussin) 200 mg PRN Q4HRS PRN PO COUGH; Start 05/25/18 at 18:00 Lorazepam (Ativan) 0.5 mg PRN Q4HRS PRN PO ANXIETY / AGITATION Last administered on 05/26/18 04:30; Start 05/25/18 at 18:00 Enoxaparin Sodium (Lovenox 40mg Syringe) 40 mg DAILY SQ Last administered on 09:39; Start 05/26/18 at 09:00; Stop 05/26/18 at 16:30; Status DC Piperacillin Sod/ Tazobactam Sod 3.375 gm/Sodium Chloride 50 ml @ 100 mls/hr Q6HRS IV Last administered on 05/29/18 05:48; Start 05/25/18 at 18:10 Acetaminophen (Tylenol) 650 mg TID PRN PRN PO PAIN; Start 05/25/18 at 18:15; Status UNV Furosemide (Lasix) 20 mg DAILY PO ; Start 05/26/18 at 09:00; Stop 05/27/18 at 13 :28; Status DC Lisinopril (Prinivil) 20 mg DAILY PO Last administered on 05/28/18 08:07; Start 05/26/18 at 09:00 Insulin Glargine (Lantus) 20 units BID SQ Last administered on 05/28/18 21:12 ; Start 05/25/18 at 21:00 Pioglitazone HCl (Actos) 45 mg DAILY PO Last administered on 05/28/18 08:06; Start 05/26/18 at 09:00 Sennosides (Senna) 17.2 mg BID PO Last administered on 05/28/18 21:00; Start 05/25/18 at 21:00 Warfarin Sodium (Coumadin) 4 mg DAILY16 PO Last administered on 3/16/19at 18:06 ; Start 05/25/18 at 21:00; Stop 05/27/18 at 11:16; Status DC Piperacillin Sod/ Tazobactam Sod 3.375 gm/Sodium Chloride 50 ml @ 100 mls/hr Q6HRS IV ; Start 05/26/18 at 00:00; Status UNV Vancomycin HCl (Vanco Per Pharmacy) 1 each PRN DAILY PRN MC SEE COMMENTS Last administered on 05/26/18at 16:08; Start 05/25/18 at 18:45; Stop 05/26/18 at 18:24 ; Status DC Vancomycin HCl 2 gm/Sodium Chloride 500 ml @ 250 mls/hr 1X ONCE IV Last administered on 05/25/18at 22:34; Start 05/25/18 at 19:00; Stop 05/25/18 at 20:59 ; Status DC Warfarin Sodium (Coumadin Per Physician) 1 each PRN DAILY PRN MC SEE COMMENTS Last administered on 05/26/18at 16:15; Start 05/25/18 at 20:45; Stop 05/27/18 at 11:16; Status DC Vancomycin HCl 1.5 gm/Sodium Chloride 500 ml @ 250 mls/hr Q12H IV Last administered on 05/26/18at 09:39; Start 05/26/18 at 09:00; Stop 05/26/18 at 18:24 ; Status DC Vancomycin HCl (Vancomycin Trough Level) 1 each 1X ONCE MC ; Start 05/27/18 at 08:30; Stop 05/27/18 at 08:30; Status DC Fentanyl Citrate (Fentanyl 2ml Vial) 50 mcg PRN Q3HRS PRN IV MODERATE TO SEVERE PAIN Last administered on 05/29/18at 04:10; Start 05/25/18 at 22:00 Albuterol Sulfate (Ventolin Neb Soln) 2.5 mg PRN Q6HRS PRN INH SHORTNESS OF BREATH; Start 05/26/18 at 10:15 Allopurinol (Zyloprim) 200 mg DAILY PO ; Start 05/26/18 at 11:00; Stop 05/26/18 at 16:09; Status DC Atorvastatin Calcium (Lipitor) 40 mg QHS PO Last administered on 05/28/18at 21: 00; Start 05/26/18 at 21:00 Cetirizine HCl (ZyrTEC) 10 mg DAILY PO Last administered on 05/28/18 08:07; Start 05/26/18 at 10:30 Tamsulosin HCl (Flomax) 0.4 mg DAILY PO Last administered on 05/28/18 08:08; Start 05/26/18 at 10:30 Gabapentin (Neurontin) 600 mg BID PO Last administered on 05/27/18 08:10; Start 05/26/18 at 10:15; Stop 05/27/18 at 13:29; Status DC Insulin Human Lispro (HumaLOG) 4 units TIDWMEALS SQ Last administered on 17:42; Start 05/26/18 at 17:00 Insulin Human Lispro (HumaLOG) 0-7 UNITS TIDWMEALS SQ Last administered on 05/28 17:43; Start 05/26/18 at 17:00 Dextrose (Dextrose 50%-Water Syringe) 12.5 gm PRN Q15MIN PRN IV SEE COMMENTS; Start 05/26/18 at 13:00 Metformin HCl (Glucophage) 1,000 mg BIDWMEALS PO Last administered on 17:32; Start 05/26/18 at 17:00 Linezolid/Dextrose 300 ml @ 300 mls/hr Q12HR IV Last administered on 21:01; Start 05/26/18 at 21:00 Heparin Sodium/ Dextrose 500 ml @ 0 mls/hr CONT PRN IV SEE I/O RECORD Last administered on 05/28/18 22:08; Start 05/28/18 at 09:00 Heparin Sodium (Porcine) (Heparin Sodium) 3,400 unit PRN Q6HRS PRN IV FOR UFH LEVEL LESS THAN 0.2; Start 05/28/18 at 09:00 Heparin Sodium (Porcine) (Heparin Sodium) 1,700 unit PRN Q6HRS PRN IV FOR UFH LEVEL 0.2 - 0.29 Last administered on 05/28/18 15:45; Start 05/28/18 at 09:00 Info (Anti-Coagulation Monitoring By Pharmacy) 1 each PRN DAILY PRN MC SEE COMMENTS Last administered on 05/28/18 12:09; Start 05/27/18 at 11:30 Lactobacillus Rhamnosus (Culturelle) 1 cap BID PO Last administered on 21:02; Start 05/27/18 at 21:00 Bacitracin/ Polymyxin B Sulfate (Polysporin) 1 ana TID TP Last administered on 05/28/18 21:01; Start 05/27/18 at 14:00 Gabapentin (Neurontin) 600 mg DAILY08 PO Last administered on 05/28/18 08:06; Start 05/28/18 at 08:00 Gabapentin (Neurontin) 900 mg HS PO Last administered on 05/28/18at 21:00; Start 05/27/18 at 21:00 Oxycodone/ Acetaminophen (Percocet 5/325) 1 tab PRN Q4HRS PRN PO MODERATE TO SEVERE PAIN Last administered on 05/29/18 01:31; Start 05/27/18 at 14:30 Multivitamins (Thera M Plus) 1 tab DAILY PO Last administered on 05/28/18 17: 33; Start 05/28/18 at 17:00 Ascorbic Acid (Vitamin C) 500 mg DAILY PO Last administered on 05/28/18at 17:33 ; Start 05/28/18 at 17:00 Active Scripts Active Reported Preparation H Ointment (Phenyleph/Mineral Oil/Petrolat) 28 Gm Oint.appl 28 Gm RC QID Muscle Rub Cream (Methyl Salicylate/Menthol) 113 Gm Cream..g. 1 Gm TP TID Proair Hfa Inhaler (Albuterol Sulfate) 8.5 Gm Hfa.aer.ad 1 Puff INH PRN Q6HRS PRN Zyrtec (Cetirizine Hcl) 10 Mg Tablet 1 Tab PO DAILY Atorvastatin Calcium 40 Mg Tablet 1 Tab PO QHS Metformin Hcl 1,000 Mg Tablet 1,000 Mg PO BIDWMEALS Gabapentin (Gabapentin) 300 Mg Capsule 300 Mg PO DAILY Gabapentin 600 Mg Tablet 600 Mg PO DAILY08 Flomax (Tamsulosin Hcl) 0.4 Mg Cap.er.24h 1 Cap PO DAILY Tylenol (Acetaminophen) 325 Mg Tablet 2 Tab PO TID PRN PRN Humulin R (Insulin Regular, Human) 100 Unit/1 Ml Vial 100 Unit IJ TIDAC Lisinopril 20 Mg Tablet 1 Tab PO DAILY Furosemide 20 Mg Tablet 1 Tab PO DAILY Coumadin (Warfarin Sodium) 4 Mg Tablet 1 Tab PO DAILY Actos (Pioglitazone Hcl) 45 Mg Tablet 1 Tab PO DAILY Novolin N (Nph, Human Insulin Isophane) 100 Unit/1 Ml Vial 20 Unit SQ BID Senna (Sennosides) 8.6 Mg Tablet 2 Mg PO BID Vitals/I & O Vital Sign - Last 24 Hours 05/28/18 05/28/18 05/28/18 05/28/18 08:00 08:07 11:00 12:01 Temp 97.9 97.9 Pulse 83 83 Resp 18 B/P (MAP) 109/52 109/49 (69) Pulse Ox 99 99 O2 Delivery Room Air Room Air Room Air 05/28/18 05/28/18 05/28/18 05/28/18 12:01 15:00 15:41 19:28 Temp 98.6 98.6 Pulse 87 Resp 18 B/P (MAP) 129/55 (79) Pulse Ox 99 96 98 96 O2 Delivery Room Air Room Air Room Air Room Air 05/28/18 05/28/18 05/28/18 05/28/18 19:48 20:00 21:12 22:59 Temp 98.3 98.3 Pulse 99 Resp 16 B/P (MAP) 105/60 (75) Pulse Ox 95 95 95 O2 Delivery Room Air Room Air Room Air Room Air 05/28/18 05/28/18 05/29/18 05/29/18 23:11 23:35 01:31 02:31 Temp 98.4 98.4 Pulse 98 Resp 16 B/P (MAP) 113/58 (76) Pulse Ox 91 94 94 O2 Delivery Room Air Room Air Room Air 05/29/18 05/29/18 05/29/18 05/29/18 03:50 04:10 04:40 07:50 Temp 97.5 97.5 Pulse 81 Resp 16 18 B/P (MAP) 115/56 (75) Pulse Ox 93 94 94 O2 Delivery Room Air Room Air Room Air Room Air Intake and Output 05/28/18 05/28/18 05/29/18 15:00 23:00 07:00 Intake Total 830 ml 1870 ml 900 ml Output Total 300 ml 450 ml 1500 ml Balance 530 ml 1420 ml -600 ml KATT MURILLO MD May 29, 2018 07:59
[2018-05-29] MEDS: INSULIN LISPRO 300 UNITS/3 ML INSULN.PEN. SQ SCH ×6 (08:00→18:01)
[2018-05-29] MEDS: MULTIVITAMIN with MINERAL TABLET. PO SCH (08:35)
[2018-05-29] MEDS: LACTOBACILLUS RHAMNOSUS GG 1 CAPSULE. PO SCH ×2 (08:35→21:20)
[2018-05-29] MEDS: BACITRACIN/POLYMYXIN B TOPICAL OINT 15GM TUBE. TP SCH ×3 (08:35→21:28)
[2018-05-29] MEDS: LISINOPRIL 20 MG TABLET PO SCH (08:36)
[2018-05-29] MEDS: SENNOSIDES 8.6 MG TABLET PO SCH ×2 (08:36→21:20)
[2018-05-29] MEDS: GABAPENTIN 300 MG CAPSULE. PO SCH ×2 (08:36→21:20)
[2018-05-29] MEDS: CETIRIZINE HCL 10 MG TABLET. PO SCH (08:37)
[2018-05-29] MEDS: metFORMIN 500 MG TABLET PO SCH ×2 (08:37→17:51)
[2018-05-29] MEDS: ASCORBIC ACID 500 MG TABLET PO SCH (08:37)
[2018-05-29] MEDS: TAMSULOSIN 0.4 MG CAP.ER.24H. PO SCH (08:37)
[2018-05-29] MEDS: PIOGLITAZONE 15 MG TABLET. PO SCH (08:37)
--- NOTE | 2018-05-29 08:44 | PDOC ---
PROGRESS NOTES Subjective Subjective Patient c/o left calf and leg pain, also complains of increased swelling and erythema. Patient complains of cough with "blood tinged" sputum. Objective Objective Vital Signs Date Time Temp Pulse Resp B/P (MAP) Pulse Ox O2 Delivery O2 Flow Rate FiO2 05/29/18 07:50 Room Air 05/29/18 07:00 97.4 111 18 106/54 (71) 93 97.4 Intake and Output 05/29/18 07:00 Intake Total 3600 ml Output Total 2250 ml Balance 1350 ml Intake Oral 3200 ml IV Total 400 ml Output Urine Total 2250 ml # Voids 1 # Bowel Movements 2 Physical Exam Physical Exam Awake and alert HRR Non-labored respirations, hemoptysis left calf dressing removed, severe swelling and increasing erythema extends medial in thigh with tenderness, 2 large anular ulcers with dry dark eschar. In reviewing images in chart they remain unchanged. Palpable left DP pulse. Assessment Assessment A/P: #1 Left lower extremity nonhealing wounds, venous insufficiency with noted venous reflux and incompetent perforators. Cellulitis with management per ID. #2 Excellent arterial inflow no need for arterial intervention. #3 Coumadin for DVTon hold-INR is 2.1 today, will check in am. #4 Wound base appears necrotic, appears stable WBC WNL and patient is afebrile will need surgical debridement, plan for surgical debridement tomorrow afternoon , will likely need a wound VAC therapy, discussed this at length with patient and post care. #5 Patient would likely benefit from saphenous vein ablation and possible insemination worker ablation. I have arranged for patient to have US with office visit with Dr. John 06/19/2018 1:40. #6 Continue to hold Coumadin and continue heparin drip-discussed hemoptysis with nurse she will discuss with primary care. H/H stable Time spent greater than 30 minutes today with review of images, examination, counseling, and coordination of care. Comment Review of Relevant I have reviewed the following items anjana (where applicable) has been applied. Labs Laboratory Tests Test 05/27/18 11:26 05/27/18 16:46 05/27/18 20:47 05/28/18 05:38 Glucose (Fingerstick) 339 mg/dL (70-99) 186 mg/dL (70-99) 252 mg/dL (70-99) Hemoglobin 8.7 g/dL (13.0-17.5) Platelet Count 122 x10^3/uL (140-400) Prothrombin Time 23.8 SEC (11.7-14.0) Prothromb Time International Ratio 2.2 (0.8-1.1) Test 05/28/18 07:04 05/28/18 12:18 05/28/18 14:50 05/28/18 16:52 Glucose (Fingerstick) 139 mg/dL (70-99) 274 mg/dL (70-99) 194 mg/dL (70-99) Heparin Anti-Xa Act, Unfractionated 0.21 IU/mL (0.30-0.70) Test 05/28/18 20:31 05/28/18 21:50 05/29/18 05:00 05/29/18 07:56 Glucose (Fingerstick) 174 mg/dL (70-99) 94 mg/dL (70-99) Heparin Anti-Xa Act, Unfractionated 0.34 IU/mL (0.30-0.70) 0.40 IU/mL (0.30-0.70) White Blood Count 5.2 x10^3/uL (4.0-11.0) Red Blood Count 2.79 x10^6/uL (4.30-5.70) Hemoglobin 8.9 g/dL (13.0-17.5) Hematocrit 27.8 % (39.0-53.0) Mean Corpuscular Volume 100 fL (79-100) Mean Corpuscular Hemoglobin 32 pg (25-35) Mean Corpuscular Hemoglobin Concent 32 g/dL (31-37) Red Cell Distribution Width 17.8 % (11.5-14.5) Platelet Count 129 x10^3/uL (140-400) Prothrombin Time 23.0 SEC (11.7-14.0) Prothromb Time International Ratio 2.1 (0.8-1.1) Laboratory Tests Test 05/28/18 12:18 05/28/18 14:50 05/28/18 16:52 05/28/18 20:31 Glucose (Fingerstick) 274 mg/dL (70-99) 194 mg/dL (70-99) 174 mg/dL (70-99) Heparin Anti-Xa Act, Unfractionated 0.21 IU/mL (0.30-0.70) Test 05/28/18 21:50 05/29/18 05:00 05/29/18 07:56 Heparin Anti-Xa Act, Unfractionated 0.34 IU/mL (0.30-0.70) 0.40 IU/mL (0.30-0.70) White Blood Count 5.2 x10^3/uL (4.0-11.0) Red Blood Count 2.79 x10^6/uL (4.30-5.70) Hemoglobin 8.9 g/dL (13.0-17.5) Hematocrit 27.8 % (39.0-53.0) Mean Corpuscular Volume 100 fL (79-100) Mean Corpuscular Hemoglobin 32 pg (25-35) Mean Corpuscular Hemoglobin Concent 32 g/dL (31-37) Red Cell Distribution Width 17.8 % (11.5-14.5) Platelet Count 129 x10^3/uL (140-400) Prothrombin Time 23.0 SEC (11.7-14.0) Prothromb Time International Ratio 2.1 (0.8-1.1) Glucose (Fingerstick) 94 mg/dL (70-99) Microbiology 05/25/18 Blood Culture - Preliminary, Resulted NO GROWTH AFTER 3 DAYS 05/26/18 Urine Culture - Final, Complete 05/26/18 Urine Culture Result 1 (LUCY) - Final, Complete 05/26/18 Anaerobic/Aerobic Culture, Resulted Pending 05/26/18 Anaerobic Culture Result 1 (LUCY), Resulted Pending 05/26/18 Aerobic Culture, Resulted Pending 05/26/18 Aerobic Culture Result 1 (LUCY), Resulted Pending 05/26/18 Gram Stain - Final, Resulted 05/26/18 Gram Stain Result 1 (LUCY) - Final, Resulted 05/26/18 Gram Stain Result 2 (LUCY) - Final, Resulted Medications Current Medications Sodium Chloride 1,000 ml @ 100 mls/hr Q10H IV Last administered on 05/29/18at 04:10; Start 05/25/18 at 17:54 Ondansetron HCl (Zofran) 4 mg PRN Q4HRS PRN IV NAUSEA/VOMITING; Start 05/25/18 at 18:00 Zolpidem Tartrate (Ambien) 5 mg PRN QHS PRN PO INSOMNIA; Start 05/25/18 at 18: 00 Acetaminophen (Tylenol) 650 mg PRN Q4HRS PRN PO TEMP OVER 100.4F OR MILD PAIN Last administered on 05/26/18at 22:46; Start 05/25/18 at 18:00 Al Hydroxide/Mg Hydroxide (Mylanta Plus Xs) 30 ml PRN DAILY PRN PO HEARTBURN / GAS Last administered on 05/27/18at 17:49; Start 05/25/18 at 18:00 Clonidine HCl (Catapres) 0.1 mg PRN Q6HRS PRN PO SBP>160 OR DBP>90; Start 05/25 at 18:00 Diphenhydramine HCl (Benadryl) 25 mg PRN Q4HRS PRN IVP ITCHING; Start 05/25/18 at 18:00 Docusate Sodium (Colace) 100 mg PRN BID PRN PO CONSTIPATION; Start 05/25/18 at 18:00 Albuterol/ Ipratropium (Duoneb) 3 ml Q4HRS NEB Last administered on 05/29/18at 07:49; Start 05/25/18 at 20:00 Guaifenesin (Robitussin) 200 mg PRN Q4HRS PRN PO COUGH; Start 05/25/18 at 18:00 Lorazepam (Ativan) 0.5 mg PRN Q4HRS PRN PO ANXIETY / AGITATION Last administered on 05/26/18at 04:30; Start 05/25/18 at 18:00 Enoxaparin Sodium (Lovenox 40mg Syringe) 40 mg DAILY SQ Last administered on at 09:39; Start 05/26/18 at 09:00; Stop 05/26/18 at 16:30; Status DC Piperacillin Sod/ Tazobactam Sod 3.375 gm/Sodium Chloride 50 ml @ 100 mls/hr Q6HRS IV Last administered on 05/29/18at 05:48; Start 05/25/18 at 18:10 Acetaminophen (Tylenol) 650 mg TID PRN PRN PO PAIN; Start 05/25/18 at 18:15; Status UNV Furosemide (Lasix) 20 mg DAILY PO ; Start 05/26/18 at 09:00; Stop 05/27/18 at 13 :28; Status DC Lisinopril (Prinivil) 20 mg DAILY PO Last administered on 05/28/18 08:07; Start 05/26/18 at 09:00 Insulin Glargine (Lantus) 20 units BID SQ Last administered on 05/28/18 21:12 ; Start 05/25/18 at 21:00 Pioglitazone HCl (Actos) 45 mg DAILY PO Last administered on 05/28/18 08:06; Start 05/26/18 at 09:00 Sennosides (Senna) 17.2 mg BID PO Last administered on 05/28/18 21:00; Start 05/25/18 at 21:00 Warfarin Sodium (Coumadin) 4 mg DAILY16 PO Last administered on 05/26/18 18:06 ; Start 05/25/18 at 21:00; Stop 05/27/18 at 11:16; Status DC Piperacillin Sod/ Tazobactam Sod 3.375 gm/Sodium Chloride 50 ml @ 100 mls/hr Q6HRS IV ; Start 05/26/18 at 00:00; Status UNV Vancomycin HCl (Vanco Per Pharmacy) 1 each PRN DAILY PRN MC SEE COMMENTS Last administered on 05/26/18 16:08; Start 05/25/18 at 18:45; Stop 05/26/18 at 18:24 ; Status DC Vancomycin HCl 2 gm/Sodium Chloride 500 ml @ 250 mls/hr 1X ONCE IV Last administered on 05/25/18at 22:34; Start 05/25/18 at 19:00; Stop 05/25/18 at 20:59 ; Status DC Warfarin Sodium (Coumadin Per Physician) 1 each PRN DAILY PRN MC SEE COMMENTS Last administered on 05/26/18 16:15; Start 05/25/18 at 20:45; Stop 05/27/18 at 11:16; Status DC Vancomycin HCl 1.5 gm/Sodium Chloride 500 ml @ 250 mls/hr Q12H IV Last administered on 05/26/18at 09:39; Start 05/26/18 at 09:00; Stop 05/26/18 at 18:24 ; Status DC Vancomycin HCl (Vancomycin Trough Level) 1 each 1X ONCE MC ; Start 05/27/18 at 08:30; Stop 05/27/18 at 08:30; Status DC Fentanyl Citrate (Fentanyl 2ml Vial) 50 mcg PRN Q3HRS PRN IV MODERATE TO SEVERE PAIN Last administered on 05/29/18at 04:10; Start 05/25/18 at 22:00 Albuterol Sulfate (Ventolin Neb Soln) 2.5 mg PRN Q6HRS PRN INH SHORTNESS OF BREATH; Start 05/26/18 at 10:15 Allopurinol (Zyloprim) 200 mg DAILY PO ; Start 05/26/18 at 11:00; Stop 05/26/18 at 16:09; Status DC Atorvastatin Calcium (Lipitor) 40 mg QHS PO Last administered on 05/28/18at 21: 00; Start 05/26/18 at 21:00 Cetirizine HCl (ZyrTEC) 10 mg DAILY PO Last administered on 05/28/18at 08:07; Start 05/26/18 at 10:30 Tamsulosin HCl (Flomax) 0.4 mg DAILY PO Last administered on 05/28/18at 08:08; Start 05/26/18 at 10:30 Gabapentin (Neurontin) 600 mg BID PO Last administered on 05/27/18at 08:10; Start 05/26/18 at 10:15; Stop 05/27/18 at 13:29; Status DC Insulin Human Lispro (HumaLOG) 4 units TIDWMEALS SQ Last administered on at 17:42; Start 05/26/18 at 17:00 Insulin Human Lispro (HumaLOG) 0-7 UNITS TIDWMEALS SQ Last administered on 05/28at 17:43; Start 05/26/18 at 17:00 Dextrose (Dextrose 50%-Water Syringe) 12.5 gm PRN Q15MIN PRN IV SEE COMMENTS; Start 05/26/18 at 13:00 Metformin HCl (Glucophage) 1,000 mg BIDWMEALS PO Last administered on at 17:32; Start 05/26/18 at 17:00 Linezolid/Dextrose 300 ml @ 300 mls/hr Q12HR IV Last administered on at 21:01; Start 05/26/18 at 21:00 Heparin Sodium/ Dextrose 500 ml @ 0 mls/hr CONT PRN IV SEE I/O RECORD Last administered on 05/28/18 22:08; Start 05/28/18 at 09:00 Heparin Sodium (Porcine) (Heparin Sodium) 3,400 unit PRN Q6HRS PRN IV FOR UFH LEVEL LESS THAN 0.2; Start 05/28/18 at 09:00 Heparin Sodium (Porcine) (Heparin Sodium) 1,700 unit PRN Q6HRS PRN IV FOR UFH LEVEL 0.2 - 0.29 Last administered on 05/28/18 15:45; Start 05/28/18 at 09:00 Info (Anti-Coagulation Monitoring By Pharmacy) 1 each PRN DAILY PRN MC SEE COMMENTS Last administered on 05/28/18 12:09; Start 05/27/18 at 11:30 Lactobacillus Rhamnosus (Culturelle) 1 cap BID PO Last administered on 21:02; Start 05/27/18 at 21:00 Bacitracin/ Polymyxin B Sulfate (Polysporin) 1 ana TID TP Last administered on 05/28/18 21:01; Start 05/27/18 at 14:00 Gabapentin (Neurontin) 600 mg DAILY08 PO Last administered on 05/28/18 08:06; Start 05/28/18 at 08:00 Gabapentin (Neurontin) 900 mg HS PO Last administered on 05/28/18 21:00; Start 05/27/18 at 21:00 Oxycodone/ Acetaminophen (Percocet 5/325) 1 tab PRN Q4HRS PRN PO MODERATE TO SEVERE PAIN Last administered on 05/29/18 01:31; Start 05/27/18 at 14:30 Multivitamins (Thera M Plus) 1 tab DAILY PO Last administered on 05/28/18 17: 33; Start 05/28/18 at 17:00 Ascorbic Acid (Vitamin C) 500 mg DAILY PO Last administered on 05/28/18 17:33 ; Start 05/28/18 at 17:00 Active Scripts Active Reported Preparation H Ointment (Phenyleph/Mineral Oil/Petrolat) 28 Gm Oint.appl 28 Gm RC QID Muscle Rub Cream (Methyl Salicylate/Menthol) 113 Gm Cream..g. 1 Gm TP TID Proair Hfa Inhaler (Albuterol Sulfate) 8.5 Gm Hfa.aer.ad 1 Puff INH PRN Q6HRS PRN Zyrtec (Cetirizine Hcl) 10 Mg Tablet 1 Tab PO DAILY Atorvastatin Calcium 40 Mg Tablet 1 Tab PO QHS Metformin Hcl 1,000 Mg Tablet 1,000 Mg PO BIDWMEALS Gabapentin (Gabapentin) 300 Mg Capsule 300 Mg PO DAILY Gabapentin 600 Mg Tablet 600 Mg PO DAILY08 Flomax (Tamsulosin Hcl) 0.4 Mg Cap.er.24h 1 Cap PO DAILY Tylenol (Acetaminophen) 325 Mg Tablet 2 Tab PO TID PRN PRN Humulin R (Insulin Regular, Human) 100 Unit/1 Ml Vial 100 Unit IJ TIDAC Lisinopril 20 Mg Tablet 1 Tab PO DAILY Furosemide 20 Mg Tablet 1 Tab PO DAILY Coumadin (Warfarin Sodium) 4 Mg Tablet 1 Tab PO DAILY Actos (Pioglitazone Hcl) 45 Mg Tablet 1 Tab PO DAILY Novolin N (Nph, Human Insulin Isophane) 100 Unit/1 Ml Vial 20 Unit SQ BID Senna (Sennosides) 8.6 Mg Tablet 2 Mg PO BID Vitals/I & O Vital Sign - Last 24 Hours 05/28/18 05/28/18 05/28/18 05/28/18 11:00 12:01 12:01 15:00 Temp 97.9 98.6 97.9 98.6 Pulse 83 87 Resp 18 18 B/P (MAP) 109/49 (69) 129/55 (79) Pulse Ox 99 99 99 96 O2 Delivery Room Air Room Air Room Air Room Air 05/28/18 05/28/18 05/28/18 05/28/18 15:41 19:28 19:48 20:00 Temp 98.3 98.3 Pulse 99 Resp 16 B/P (MAP) 105/60 (75) Pulse Ox 98 96 95 O2 Delivery Room Air Room Air Room Air Room Air 05/28/18 05/28/18 05/28/18 05/28/18 21:12 22:59 23:11 23:35 Temp 98.4 98.4 Pulse 98 Resp 16 B/P (MAP) 113/58 (76) Pulse Ox 95 95 91 O2 Delivery Room Air Room Air Room Air Room Air 05/29/18 05/29/18 05/29/18 05/29/18 01:31 02:31 03:50 04:10 Temp 97.5 97.5 Pulse 81 Resp 16 B/P (MAP) 115/56 (75) Pulse Ox 94 94 93 94 O2 Delivery Room Air Room Air Room Air 05/29/18 05/29/18 05/29/18 04:40 07:00 07:50 Temp 97.4 97.4 Pulse 111 Resp 18 18 B/P (MAP) 106/54 (71) Pulse Ox 94 93 O2 Delivery Room Air Room Air Room Air Intake and Output 05/28/18 05/28/18 05/29/18 15:00 23:00 07:00 Intake Total 830 ml 1870 ml 900 ml Output Total 300 ml 450 ml 1500 ml Balance 530 ml 1420 ml -600 ml JOSELYN SINGH APRN May 29, 2018 08:44
[2018-05-29] MEDS: INSULIN GLARGINE 300 UNITS/3 ML INSULN.PEN. SQ SCH ×2 (08:46→21:27)
[2018-05-29] MEDS: HEPARIN 25,000UTS/500ML PREMIX 500 ML IV PRN ×2 (09:57→21:28)
[2018-05-29 10:49] VITALS: BP 111/62
[2018-05-29] MEDS: ANTI-COAG MONITOR BY PHARMACY. MC PRN (10:59)
--- NOTE | 2018-05-29 11:30 | PDOC ---
Infectious Disease Note Subjective Subjective pt is feeling better, still have left leg pain ROS ROS no n/v/d/ Vital Sign Vital Signs Vital Signs Date Time Temp Pulse Resp B/P (MAP) Pulse Ox O2 Delivery O2 Flow Rate FiO2 05/29/18 10:49 98.2 86 18 111/62 (78) 92 Room Air 98.2 Physical Exam PHYSICAL EXAM GENERAL: Propped up in bed, alert, NAD HEENT: Pupils equally round. Normal conjunctivae. Oral cavity: Pharynx pink and moist. No lesions. NECK: Supple. LUNGS: Clear to auscultation. HEART: S1 and S2. ABDOMEN: Obese, soft and nontender with bowel sounds present. EXTREMITIES: Unremarkable except for 2 fairly large annular ulcers on anterior left leg with black dry base and surrounding warmth, edema and redness extending medially to the thigh area. Distal pulses palpable. SKIN: Developing herpetic-type lesions around the mouth and nasal folds NEUROLOGIC: Alert and responds appropriately. PIV ok Labs Lab Laboratory Tests Test 05/28/18 12:18 05/28/18 14:50 05/28/18 16:52 05/28/18 20:31 Glucose (Fingerstick) 274 mg/dL (70-99) 194 mg/dL (70-99) 174 mg/dL (70-99) Heparin Anti-Xa Act, Unfractionated 0.21 IU/mL (0.30-0.70) Test 05/28/18 21:50 05/29/18 05:00 05/29/18 07:56 Heparin Anti-Xa Act, Unfractionated 0.34 IU/mL (0.30-0.70) 0.40 IU/mL (0.30-0.70) White Blood Count 5.2 x10^3/uL (4.0-11.0) Red Blood Count 2.79 x10^6/uL (4.30-5.70) Hemoglobin 8.9 g/dL (13.0-17.5) Hematocrit 27.8 % (39.0-53.0) Mean Corpuscular Volume 100 fL (79-100) Mean Corpuscular Hemoglobin 32 pg (25-35) Mean Corpuscular Hemoglobin Concent 32 g/dL (31-37) Red Cell Distribution Width 17.8 % (11.5-14.5) Platelet Count 129 x10^3/uL (140-400) Prothrombin Time 23.0 SEC (11.7-14.0) Prothromb Time International Ratio 2.1 (0.8-1.1) Glucose (Fingerstick) 94 mg/dL (70-99) Micro Microbiology 05/25/18 Blood Culture - Preliminary, Resulted NO GROWTH AFTER 2 DAYS Objective Assessment 1. Cellulitis of left lower extremity. 2. Nonhealing wounds of left lower extremity since 2017, now with eschar. 3. Fever. 4. Diabetes with peripheral neuropathy. 5. Peripheral vascular disease. 6. History of deep venous thrombosis, on warfarin therapy. 7. 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 He is followed by Dr. Schneider in [place] and takes Sutent for treatment per the patient. 8. Solitary kidney. 9. Incarceration. Plan Plan of Care Zyvox and Zosyn surgery pending wound cultures pending BC NGTD CPK pending Contact isolation d/w nursing PETEY MARSHALL MD May 29, 2018 11:30
[2018-05-29 15:00] VITALS: BP 114/61
[2018-05-29 19:51] VITALS: BP 108/54
[2018-05-29] MEDS: ATORVASTATIN CALCIUM 40 MG TABLET. PO SCH (21:20)
[2018-05-29 23:21] VITALS: BP 111/62
[2018-05-30] MEDS: IV NORMAL SALINE 1000ML BAG 1,000 ML IV SCH ×3 (03:34→21:15)
[2018-05-30] MEDS: fentaNYL PF VIAL 100 MCG/2 ML VIAL IV PRN ×3 (03:34→08:58)
[2018-05-30 03:40] VITALS: BP 108/59
[2018-05-30] MEDS: IPRATRPIUM/ALBUTEROL 0.5/2.5MG 3 ML NEBU. NEB SCH ×6 (04:00→23:52)
[2018-05-30] MEDS: PIPERACILLIN/TAZOBACTAM 3.375 GM in IV NORMAL SALINE 50ML 50 ML IV SCH ×3 (06:06)
[2018-05-30 06:20] LABS: PROTHROMBIN TIME PATIENT 19.4 SEC (11.7-14.0)
[2018-05-30 06:35] LABS: UNFRACTIONATED HEPARIN TESTING 0.45 IU/mL (0.30-0.70)
[2018-05-30] MEDS ORDERED: ONDANSETRON PF 4 MG/2 ML VIAL. IV PRN (07:00)
[2018-05-30] MEDS ORDERED: LIDOCAINE 1% PF 2 ML VIAL. ID PRN (07:00)
[2018-05-30] MEDS ORDERED: IV RINGERS,LACTATED 1000ML 1,000 ML IV SCH (07:00)
[2018-05-30] MEDS ORDERED: HYDROmorphone 2 MG/ML VIAL IV PRN (07:00)
[2018-05-30] MEDS ORDERED: PROCHLORPERAZINE 10 MG/2 ML VIAL. IV PRN (07:00)
[2018-05-30] MEDS ORDERED: fentaNYL PF VIAL 100 MCG/2 ML VIAL ONE (07:15)
[2018-05-30] MEDS ORDERED: IPRATRPIUM/ALBUTEROL 0.5/2.5MG 3 ML NEBU. NEB ONE (07:15)
--- NOTE | 2018-05-30 07:44 | PDOC ---
PROGRESS NOTES Chief Complaint Chief Complaint 1. marked complicated acute cellulitis left lower leg 2. diabetes 2, mod control 3. hypertension 4. leg wound with cellullitis in DM2 5. OBESITY, BMI 38 6. [employer] prisoner low security 7. mod protein, caloric malnutrition History of Present Illness History of Present Illness Seen today. INR 1.7. Off heparin GTT for OR Wound culture shows staph aureus. He still has pretty significant pain. He is anxious about going to OR this morning Plan: iv zosyn and vanc - ID seeing, likely downgrading antibiotics post op Vascular surg has seen - To OR today for LLE debridement DM2 control, add SSI, wound care consult, pain control, A1c hgb in AM arterial doppler both legs OK CBC, COMP Vitals Vitals Vital Signs Date Time Temp Pulse Resp B/P (MAP) Pulse Ox O2 Delivery O2 Flow Rate FiO2 05/30/18 06:55 97.6 94 16 119/58 95 Room Air 97.6 Physical Exam Physical Exam GENERAL: Propped up in bed, alert, NAD HEENT: Pupils equally round. Normal conjunctivae. Oral cavity: Pharynx pink and moist. No lesions. NECK: Supple. LUNGS: Clear to auscultation. HEART: S1 and S2. ABDOMEN: Obese, soft and nontender with bowel sounds present. EXTREMITIES: Unremarkable except for 2 fairly large annular ulcers on anterior left leg with black dry base and surrounding warmth, edema and redness extending medially to the thigh area. Distal pulses palpable. SKIN: Developing herpetic-type lesions around the mouth and nasal folds NEUROLOGIC: Alert and responds appropriately. PIV ok General: Alert, Oriented X3, Cooperative Heart: Regular rate, Normal S1, Normal S2 Abdomen: Normal bowel sounds, Soft Extremities: Normal pulses Skin: No rashes Labs LABS Laboratory Tests Test 05/29/18 07:56 05/29/18 11:56 05/29/18 16:16 05/29/18 21:07 Glucose (Fingerstick) 94 mg/dL (70-99) 206 mg/dL (70-99) 195 mg/dL (70-99) 173 mg/dL (70-99) Test 05/30/18 04:45 05/30/18 06:49 Prothrombin Time 19.4 SEC (11.7-14.0) Prothromb Time International Ratio 1.7 (0.8-1.1) Heparin Anti-Xa Act, Unfractionated 0.45 IU/mL (0.30-0.70) Glucose (Fingerstick) 97 mg/dL (70-99) Comment Review of Relevant I have reviewed the following items anjana (where applicable) has been applied. Labs Laboratory Tests Test 05/28/18 12:18 05/28/18 14:50 05/28/18 16:52 05/28/18 20:31 Glucose (Fingerstick) 274 mg/dL (70-99) 194 mg/dL (70-99) 174 mg/dL (70-99) Heparin Anti-Xa Act, Unfractionated 0.21 IU/mL (0.30-0.70) Test 05/28/18 21:50 05/29/18 05:00 05/29/18 07:56 05/29/18 11:56 Heparin Anti-Xa Act, Unfractionated 0.34 IU/mL (0.30-0.70) 0.40 IU/mL (0.30-0.70) White Blood Count 5.2 x10^3/uL (4.0-11.0) Red Blood Count 2.79 x10^6/uL (4.30-5.70) Hemoglobin 8.9 g/dL (13.0-17.5) Hematocrit 27.8 % (39.0-53.0) Mean Corpuscular Volume 100 fL (79-100) Mean Corpuscular Hemoglobin 32 pg (25-35) Mean Corpuscular Hemoglobin Concent 32 g/dL (31-37) Red Cell Distribution Width 17.8 % (11.5-14.5) Platelet Count 129 x10^3/uL (140-400) Prothrombin Time 23.0 SEC (11.7-14.0) Prothromb Time International Ratio 2.1 (0.8-1.1) Glucose (Fingerstick) 94 mg/dL (70-99) 206 mg/dL (70-99) Test 05/29/18 16:16 05/29/18 21:07 05/30/18 04:45 05/30/18 06:49 Glucose (Fingerstick) 195 mg/dL (70-99) 173 mg/dL (70-99) 97 mg/dL (70-99) Prothrombin Time 19.4 SEC (11.7-14.0) Prothromb Time International Ratio 1.7 (0.8-1.1) Heparin Anti-Xa Act, Unfractionated 0.45 IU/mL (0.30-0.70) Laboratory Tests Test 05/29/18 07:56 05/29/18 11:56 05/29/18 16:16 05/29/18 21:07 Glucose (Fingerstick) 94 mg/dL (70-99) 206 mg/dL (70-99) 195 mg/dL (70-99) 173 mg/dL (70-99) Test 05/30/18 04:45 05/30/18 06:49 Prothrombin Time 19.4 SEC (11.7-14.0) Prothromb Time International Ratio 1.7 (0.8-1.1) Heparin Anti-Xa Act, Unfractionated 0.45 IU/mL (0.30-0.70) Glucose (Fingerstick) 97 mg/dL (70-99) Microbiology 05/25/18 Blood Culture - Preliminary, Resulted NO GROWTH AFTER 4 DAYS 05/26/18 Urine Culture - Final, Complete 05/26/18 Urine Culture Result 1 (LUCY) - Final, Complete 05/26/18 Anaerobic/Aerobic Culture, Resulted Pending 05/26/18 Anaerobic Culture Result 1 (LUCY), Resulted Pending 05/26/18 Aerobic Culture - Preliminary, Resulted 05/26/18 Aerobic Culture Result 1 (LUCY) - Preliminary, Resulted 05/26/18 Gram Stain - Final, Resulted 05/26/18 Gram Stain Result 1 (LUCY) - Final, Resulted 05/26/18 Gram Stain Result 2 (LUCY) - Final, Resulted Medications Current Medications Sodium Chloride 1,000 ml @ 100 mls/hr Q10H IV Last administered on 05/30/18at 03:34; Start 05/25/18 at 17:54 Ondansetron HCl (Zofran) 4 mg PRN Q4HRS PRN IV NAUSEA/VOMITING; Start 05/25/18 at 18:00 Zolpidem Tartrate (Ambien) 5 mg PRN QHS PRN PO INSOMNIA; Start 05/25/18 at 18: 00 Acetaminophen (Tylenol) 650 mg PRN Q4HRS PRN PO TEMP OVER 100.4F OR MILD PAIN Last administered on 05/26/18at 22:46; Start 05/25/18 at 18:00 Al Hydroxide/Mg Hydroxide (Mylanta Plus Xs) 30 ml PRN DAILY PRN PO HEARTBURN / GAS Last administered on 05/27/18at 17:49; Start 05/25/18 at 18:00 Clonidine HCl (Catapres) 0.1 mg PRN Q6HRS PRN PO SBP>160 OR DBP>90; Start 05/25 at 18:00 Diphenhydramine HCl (Benadryl) 25 mg PRN Q4HRS PRN IVP ITCHING; Start 05/25/18 at 18:00 Docusate Sodium (Colace) 100 mg PRN BID PRN PO CONSTIPATION; Start 05/25/18 at 18:00 Albuterol/ Ipratropium (Duoneb) 3 ml Q4HRS NEB Last administered on 05/29/18at 23:23; Start 05/25/18 at 20:00 Guaifenesin (Robitussin) 200 mg PRN Q4HRS PRN PO COUGH; Start 05/25/18 at 18:00 Lorazepam (Ativan) 0.5 mg PRN Q4HRS PRN PO ANXIETY / AGITATION Last administered on 05/26/18at 04:30; Start 05/25/18 at 18:00 Enoxaparin Sodium (Lovenox 40mg Syringe) 40 mg DAILY SQ Last administered on at 09:39; Start 05/26/18 at 09:00; Stop 05/26/18 at 16:30; Status DC Piperacillin Sod/ Tazobactam Sod 3.375 gm/Sodium Chloride 50 ml @ 100 mls/hr Q6HRS IV Last administered on 05/30/18at 06:06; Start 05/25/18 at 18:10 Acetaminophen (Tylenol) 650 mg TID PRN PRN PO PAIN; Start 05/25/18 at 18:15; Status UNV Furosemide (Lasix) 20 mg DAILY PO ; Start 05/26/18 at 09:00; Stop 05/27/18 at 13 :28; Status DC Lisinopril (Prinivil) 20 mg DAILY PO Last administered on 05/29/18at 08:36; Start 05/26/18 at 09:00 Insulin Glargine (Lantus) 20 units BID SQ Last administered on 05/29/18at 21:27 ; Start 05/25/18 at 21:00 Pioglitazone HCl (Actos) 45 mg DAILY PO Last administered on 05/29/18at 08:37; Start 05/26/18 at 09:00 Sennosides (Senna) 17.2 mg BID PO Last administered on 05/29/18at 21:20; Start 05/25/18 at 21:00 Warfarin Sodium (Coumadin) 4 mg DAILY16 PO Last administered on 05/26/18at 18:06 ; Start 05/25/18 at 21:00; Stop 05/27/18 at 11:16; Status DC Piperacillin Sod/ Tazobactam Sod 3.375 gm/Sodium Chloride 50 ml @ 100 mls/hr Q6HRS IV ; Start 05/26/18 at 00:00; Status UNV Vancomycin HCl (Vanco Per Pharmacy) 1 each PRN DAILY PRN MC SEE COMMENTS Last administered on 05/26/18at 16:08; Start 05/25/18 at 18:45; Stop 05/26/18 at 18:24 ; Status DC Vancomycin HCl 2 gm/Sodium Chloride 500 ml @ 250 mls/hr 1X ONCE IV Last administered on 05/25/18at 22:34; Start 05/25/18 at 19:00; Stop 05/25/18 at 20:59 ; Status DC Warfarin Sodium (Coumadin Per Physician) 1 each PRN DAILY PRN MC SEE COMMENTS Last administered on 05/26/18at 16:15; Start 05/25/18 at 20:45; Stop 05/27/18 at 11:16; Status DC Vancomycin HCl 1.5 gm/Sodium Chloride 500 ml @ 250 mls/hr Q12H IV Last administered on 05/26/18at 09:39; Start 05/26/18 at 09:00; Stop 05/26/18 at 18:24 ; Status DC Vancomycin HCl (Vancomycin Trough Level) 1 each 1X ONCE MC ; Start 05/27/18 at 08:30; Stop 05/27/18 at 08:30; Status DC Fentanyl Citrate (Fentanyl 2ml Vial) 50 mcg PRN Q3HRS PRN IV MODERATE TO SEVERE PAIN Last administered on 05/30/18at 03:34; Start 05/25/18 at 22:00 Albuterol Sulfate (Ventolin Neb Soln) 2.5 mg PRN Q6HRS PRN INH SHORTNESS OF BREATH; Start 05/26/18 at 10:15 Allopurinol (Zyloprim) 200 mg DAILY PO ; Start 05/26/18 at 11:00; Stop 05/26/18 at 16:09; Status DC Atorvastatin Calcium (Lipitor) 40 mg QHS PO Last administered on 05/29/18 21: 20; Start 05/26/18 at 21:00 Cetirizine HCl (ZyrTEC) 10 mg DAILY PO Last administered on 05/29/18 08:37; Start 05/26/18 at 10:30 Tamsulosin HCl (Flomax) 0.4 mg DAILY PO Last administered on 05/29/18 08:37; Start 05/26/18 at 10:30 Gabapentin (Neurontin) 600 mg BID PO Last administered on 05/27/18at 08:10; Start 05/26/18 at 10:15; Stop 05/27/18 at 13:29; Status DC Insulin Human Lispro (HumaLOG) 4 units TIDWMEALS SQ Last administered on 18:00; Start 05/26/18 at 17:00 Insulin Human Lispro (HumaLOG) 0-7 UNITS TIDWMEALS SQ Last administered on 05/29 18:01; Start 05/26/18 at 17:00 Dextrose (Dextrose 50%-Water Syringe) 12.5 gm PRN Q15MIN PRN IV SEE COMMENTS; Start 05/26/18 at 13:00 Metformin HCl (Glucophage) 1,000 mg BIDWMEALS PO Last administered on at 17:51; Start 05/26/18 at 17:00 Linezolid/Dextrose 300 ml @ 300 mls/hr Q12HR IV Last administered on 21:21; Start 05/26/18 at 21:00 Heparin Sodium/ Dextrose 500 ml @ 0 mls/hr CONT PRN IV SEE I/O RECORD Last administered on 05/29/18at 21:28; Start 05/28/18 at 09:00 Heparin Sodium (Porcine) (Heparin Sodium) 3,400 unit PRN Q6HRS PRN IV FOR UFH LEVEL LESS THAN 0.2; Start 05/28/18 at 09:00 Heparin Sodium (Porcine) (Heparin Sodium) 1,700 unit PRN Q6HRS PRN IV FOR UFH LEVEL 0.2 - 0.29 Last administered on 05/28/18at 15:45; Start 05/28/18 at 09:00 Info (Anti-Coagulation Monitoring By Pharmacy) 1 each PRN DAILY PRN MC SEE COMMENTS Last administered on 05/29/18at 10:59; Start 05/27/18 at 11:30 Lactobacillus Rhamnosus (Culturelle) 1 cap BID PO Last administered on 21:20; Start 05/27/18 at 21:00 Bacitracin/ Polymyxin B Sulfate (Polysporin) 1 ana TID TP Last administered on 05/29/18 21:28; Start 05/27/18 at 14:00 Gabapentin (Neurontin) 600 mg DAILY08 PO Last administered on 05/29/18 08:36; Start 05/28/18 at 08:00 Gabapentin (Neurontin) 900 mg HS PO Last administered on 05/29/18at 21:20; Start 05/27/18 at 21:00 Oxycodone/ Acetaminophen (Percocet 5/325) 1 tab PRN Q4HRS PRN PO MODERATE TO SEVERE PAIN Last administered on 05/29/18 21:21; Start 05/27/18 at 14:30 Multivitamins (Thera M Plus) 1 tab DAILY PO Last administered on 05/29/18 08: 35; Start 05/28/18 at 17:00 Ascorbic Acid (Vitamin C) 500 mg DAILY PO Last administered on 05/29/18at 08:37 ; Start 05/28/18 at 17:00 Ondansetron HCl (Zofran) 4 mg PRN Q6HRS PRN IV NAUSEA/VOMITING; Start 05/30/18 at 07:00; Stop 05/31/18 at 06:59 Morphine Sulfate (Morphine Sulfate) 1 mg PRN Q10MIN PRN IV SEVERE PAIN; Start 05/30/18 at 07:00; Stop 05/31/18 at 06:59 Ringer's Solution 1,000 ml @ 30 mls/hr Q24H IV ; Start 05/30/18 at 07:00; Stop 05/30/18 at 18:59 Lidocaine HCl (Xylocaine-Mpf 1% 2ml Vial) 2 ml PRN 1X PRN ID PRIOR TO IV START ; Start 05/30/18 at 07:00; Stop 05/31/18 at 06:59 Hydromorphone HCl (Dilaudid) 0.5 mg PRN Q10MIN PRN IV SEV PAIN, Second choice; Start 05/30/18 at 07:00; Stop 05/31/18 at 06:59 Prochlorperazine Edisylate (Compazine) 5 mg PACU PRN PRN IV NAUSEA, MRX1; Start 05/30/18 at 07:00; Stop 05/31/18 at 06:59 Albuterol/ Ipratropium (Duoneb) 3 ml 1X ONCE NEB Last administered on at 07:10; Start 05/30/18 at 07:15; Stop 05/30/18 at 07:16; Status DC Fentanyl Citrate (Fentanyl 2ml Vial) 100 mcg STK-MED ONCE .ROUTE ; Start at 07:15; Stop 05/30/18 at 07:16; Status DC Active Scripts Active Reported Preparation H Ointment (Phenyleph/Mineral Oil/Petrolat) 28 Gm Oint.appl 28 Gm RC QID Muscle Rub Cream (Methyl Salicylate/Menthol) 113 Gm Cream..g. 1 Gm TP TID Proair Hfa Inhaler (Albuterol Sulfate) 8.5 Gm Hfa.aer.ad 1 Puff INH PRN Q6HRS PRN Zyrtec (Cetirizine Hcl) 10 Mg Tablet 1 Tab PO DAILY Atorvastatin Calcium 40 Mg Tablet 1 Tab PO QHS Metformin Hcl 1,000 Mg Tablet 1,000 Mg PO BIDWMEALS Gabapentin (Gabapentin) 300 Mg Capsule 300 Mg PO DAILY Gabapentin 600 Mg Tablet 600 Mg PO DAILY08 Flomax (Tamsulosin Hcl) 0.4 Mg Cap.er.24h 1 Cap PO DAILY Tylenol (Acetaminophen) 325 Mg Tablet 2 Tab PO TID PRN PRN Humulin R (Insulin Regular, Human) 100 Unit/1 Ml Vial 100 Unit IJ TIDAC Lisinopril 20 Mg Tablet 1 Tab PO DAILY Furosemide 20 Mg Tablet 1 Tab PO DAILY Coumadin (Warfarin Sodium) 4 Mg Tablet 1 Tab PO DAILY Actos (Pioglitazone Hcl) 45 Mg Tablet 1 Tab PO DAILY Novolin N (Nph, Human Insulin Isophane) 100 Unit/1 Ml Vial 20 Unit SQ BID Senna (Sennosides) 8.6 Mg Tablet 2 Mg PO BID Vitals/I & O Vital Sign - Last 24 Hours 05/29/18 05/29/18 05/29/18 05/29/18 07:50 08:01 08:32 08:36 Pulse 111 B/P (MAP) 106/54 Pulse Ox 93 O2 Delivery Room Air Room Air Room Air 05/29/18 05/29/18 05/29/18 05/29/18 08:37 10:49 12:09 15:00 Temp 98.2 97.9 98.2 97.9 Pulse 86 84 Resp 18 18 B/P (MAP) 111/62 (78) 114/61 (78) Pulse Ox 93 92 96 93 O2 Delivery Room Air Room Air Room Air Room Air 05/29/18 05/29/18 05/29/18 05/29/18 16:01 19:51 20:00 20:10 Temp 98.1 98.1 Pulse 93 Resp 16 B/P (MAP) 108/54 (72) Pulse Ox 92 O2 Delivery Room Air Room Air Room Air Room Air 05/29/18 05/29/18 05/29/18 05/29/18 21:21 21:21 22:21 23:21 Temp 97.9 97.9 Pulse 93 Resp 16 B/P (MAP) 111/62 (78) Pulse Ox 92 92 94 94 O2 Delivery Room Air Room Air Room Air Room Air 05/29/18 05/30/18 05/30/18 05/30/18 23:23 03:34 03:40 04:04 Temp 97.6 97.6 Pulse 81 Resp 16 B/P (MAP) 108/59 (75) Pulse Ox 95 90 90 O2 Delivery Room Air Room Air Room Air Room Air 05/30/18 06:55 Temp 97.6 97.6 Pulse 94 Resp 16 B/P (MAP) 119/58 Pulse Ox 95 O2 Delivery Room Air Intake and Output 05/29/18 05/29/18 05/30/18 15:00 23:00 07:00 Intake Total 760 ml Output Total 1100 ml 2060 ml Balance -1100 ml -1300 ml KATT MURILLO MD May 30, 2018 07:44
[2018-05-30] MEDS: INSULIN LISPRO 300 UNITS/3 ML INSULN.PEN. SQ SCH ×6 (08:00→17:33)
[2018-05-30] MEDS: GABAPENTIN 300 MG CAPSULE. PO SCH ×2 (08:00→21:14)
[2018-05-30] MEDS: metFORMIN 500 MG TABLET PO SCH ×2 (08:00→17:26)
[2018-05-30] MEDS ORDERED: ONDANSETRON PF 4 MG/2 ML VIAL. ONE (08:42)
[2018-05-30] MEDS ORDERED: LIDOCAINE 2% PF 5 ML VIAL. ONE (08:43)
[2018-05-30] MEDS ORDERED: PROPOFOL 20 ML IV ONE (08:43)
[2018-05-30] MEDS ORDERED: SEVOFLURANE 31 TO 60 MINUTES. IH ONE (08:44)
--- NOTE | 2018-05-30 08:53 | PDOC4 ---
OPERATIVE NOTE Date: Date: May 30, 2018 Pre-Op Diagnosis: Nonhealing venous stasis ulcers left lower extremity with necrotic tissue Need for debridement of necrotic tissue for adequate wound healing Post-Op Diagnosis: Same as above Procedure Performed: Incision and debridement left lower extremity wounds 2 and placement of VAC both wounds Wound #1: Left mid anterior lee 6 cm x 4 cm24 cm total surface area I&D taken down to fascia (more complex than skin and subcutaneous tissue) Wound #2 left mid lateral lee 7 cm x 6 cm42 cm total surface area I&D taken down to fascia (more complex than skin simultaneous tissue) 66 sq cm total -- complex down to fascia Single wound VAC with a bridging piece covering both these wounds Surgeon: Sheldon Cummings M.D. Anesthesia Type: Gen. Blood Loss: 10 mL Specimans Obtained: None Findings: Left leg wounds with necrotic eschar debrided and taken down to fascia without evidence of purulence or active infection Excellent bleeding and all the skin edges, debridement taken down to healthy tissue, wound VAC placed with good seal Complications: None Operative Note: Patient was escorted to the operating room and placed supine on the table. After placement of appropriate monitoring devices anesthesia was induced without difficulty. The left leg was prepped and draped in usual sterile fashion. An appropriate timeout was performed. Attention was directed to left leg where the necrotic eschar was removed from both wounds using Bovie cautery and scissors to cut away the tissue and achieve hemostasis. This was taken down to the level of fascia with a large amount of necrotic tissue removed. This was done until there was excellent tissue bleeding and healthy-appearing tissue at the wound base at all wound edges for the entirety of both wounds. The wounds were measured and marked as findings. A wound VAC sponge was placed into each wound and a dressing placed over this. A single VAC machine was used to drain both with a bridging piece in the standard fashion. Patient was awakened and escorted to recovery in stable condition. There were no complications. At the end of the case, all sponge, needle, and instrument counts reported to me as correct 2. SHELDON CUMMINGS MD May 30, 2018 08:53
[2018-05-30] MEDS: INSULIN GLARGINE 300 UNITS/3 ML INSULN.PEN. SQ SCH ×2 (09:00→21:29)
[2018-05-30] MEDS: MORPHINE SULFATE 2 MG/ML VIAL. IV PRN ×2 (09:17→09:29)
[2018-05-30 11:00] VITALS: BP 130/56
[2018-05-30] MEDS: PIOGLITAZONE 15 MG TABLET. PO SCH (11:02)
[2018-05-30] MEDS: CETIRIZINE HCL 10 MG TABLET. PO SCH (11:02)
[2018-05-30] MEDS: ASCORBIC ACID 500 MG TABLET PO SCH (11:02)
[2018-05-30] MEDS: SENNOSIDES 8.6 MG TABLET PO SCH ×2 (11:02→21:14)
[2018-05-30] MEDS: TAMSULOSIN 0.4 MG CAP.ER.24H. PO SCH (11:02)
[2018-05-30] MEDS: LACTOBACILLUS RHAMNOSUS GG 1 CAPSULE. PO SCH ×2 (11:03→21:15)
[2018-05-30] MEDS: MULTIVITAMIN with MINERAL TABLET. PO SCH (11:03)
[2018-05-30] MEDS: LISINOPRIL 20 MG TABLET PO SCH (11:03)
[2018-05-30] MEDS: BACITRACIN/POLYMYXIN B TOPICAL OINT 15GM TUBE. TP SCH ×3 (11:04→21:16)
--- NOTE | 2018-05-30 11:13 | PDOC ---
Infectious Disease Note Subjective Subjective pt is feeling better, still have left leg pain ROS ROS no n/v/d/fever Vital Sign Vital Signs Vital Signs Date Time Temp Pulse Resp B/P (MAP) Pulse Ox O2 Delivery O2 Flow Rate FiO2 05/30/18 11:03 82 130/56 05/30/18 09:35 Mask 3.0 05/30/18 09:30 98.9 17 98 98.9 Physical Exam PHYSICAL EXAM GENERAL: Propped up in bed, alert, NAD HEENT: Pupils equally round. Normal conjunctivae. Oral cavity: Pharynx pink and moist. No lesions. NECK: Supple. LUNGS: Clear to auscultation. HEART: S1 and S2. ABDOMEN: Obese, soft and nontender with bowel sounds present. EXTREMITIES: Unremarkable except for 2 fairly large annular ulcers on anterior left leg with black dry base and surrounding warmth, edema and redness extending medially to the thigh area. Distal pulses palpable. SKIN: wound vac in place, left thigh redness + NEUROLOGIC: Alert and responds appropriately. PIV ok Labs Lab Laboratory Tests Test 05/29/18 11:56 05/29/18 16:16 05/29/18 21:07 05/30/18 04:45 Glucose (Fingerstick) 206 mg/dL (70-99) 195 mg/dL (70-99) 173 mg/dL (70-99) Prothrombin Time 19.4 SEC (11.7-14.0) Prothromb Time International Ratio 1.7 (0.8-1.1) Heparin Anti-Xa Act, Unfractionated 0.45 IU/mL (0.30-0.70) Test 05/30/18 06:49 05/30/18 08:40 Glucose (Fingerstick) 97 mg/dL (70-99) 117 mg/dL (70-99) Micro Microbiology 05/25/18 Blood Culture - Preliminary, Resulted NO GROWTH AFTER 2 DAYS Objective Assessment 1. Cellulitis of left lower extremity. 2. Nonhealing wounds of left lower extremity since 2017, now with eschar. s/p I and D on 05/30/18 3. Fever. 4. Diabetes with peripheral neuropathy. 5. Peripheral vascular disease. 6. History of deep venous thrombosis, on warfarin therapy. 7. 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 He is followed by Dr. Schneider in [place] and takes Sutent for treatment per the patient. 8. Solitary kidney. 9. Incarceration. Plan Plan of Care Zyvox and Zosyn ,,, change to cefazolin BC NGTD wound culture MSSA d/w nursing PETEY MARSHALL MD May 30, 2018 11:13
[2018-05-30] MEDS: ceFAZolin SODIUM 1 GM in IV DEXTROSE 5% 50 ML IV SCH ×2 (14:09→21:16)
[2018-05-30] MEDS: oxyCODONE/APAP 5/325 1 TAB TABLET PO PRN ×2 (14:12→21:24)
[2018-05-30] MEDS: HEPARIN 25,000UTS/500ML PREMIX 500 ML IV PRN (14:38)
[2018-05-30 14:48] VITALS: BP 122/45
[2018-05-30 19:00] VITALS: BP 113/58
[2018-05-30] MEDS: ATORVASTATIN CALCIUM 40 MG TABLET. PO SCH (21:15)
[2018-05-30 23:22] VITALS: BP 103/59
[2018-05-31 03:00] VITALS: BP 115/56
[2018-05-31] MEDS: IPRATRPIUM/ALBUTEROL 0.5/2.5MG 3 ML NEBU. NEB SCH ×6 (03:09→21:00)
[2018-05-31] MEDS: HEPARIN 25,000UTS/500ML PREMIX 500 ML IV PRN ×2 (03:17→16:58)
[2018-05-31 05:38] LABS: HEMATOCRIT 26.2 % (39.0-53.0); HEMOGLOBIN 8.3 g/dL (13.0-17.5); RED BLOOD COUNT 2.61 x10^6/uL (4.30-5.70); RED CELL DISTRIBUTION WIDTH 17.9 % (11.5-14.5); WHITE BLOOD COUNT 4.1 x10^3/uL (4.0-11.0)
[2018-05-31 05:46] LABS: PROTHROMBIN TIME PATIENT 19.2 SEC (11.7-14.0)
[2018-05-31 05:58] LABS: UNFRACTIONATED HEPARIN TESTING 0.49 IU/mL (0.30-0.70)
[2018-05-31] MEDS: IV NORMAL SALINE 1000ML BAG 1,000 ML IV SCH ×2 (06:10→16:54)
[2018-05-31] MEDS: ceFAZolin SODIUM 1 GM in IV DEXTROSE 5% 50 ML IV SCH ×3 (06:11→21:26)
[2018-05-31] MEDS: oxyCODONE/APAP 5/325 1 TAB TABLET PO PRN ×3 (06:13→19:28)
[2018-05-31 07:00] VITALS: BP 117/60
[2018-05-31] MEDS: PIOGLITAZONE 15 MG TABLET. PO SCH (08:01)
[2018-05-31] MEDS: metFORMIN 500 MG TABLET PO SCH ×2 (08:01→17:14)
[2018-05-31] MEDS: SENNOSIDES 8.6 MG TABLET PO SCH ×2 (08:01→21:26)
[2018-05-31] MEDS: TAMSULOSIN 0.4 MG CAP.ER.24H. PO SCH (08:01)
[2018-05-31] MEDS: LACTOBACILLUS RHAMNOSUS GG 1 CAPSULE. PO SCH ×2 (08:02→21:26)
[2018-05-31] MEDS: ASCORBIC ACID 500 MG TABLET PO SCH (08:02)
[2018-05-31] MEDS: LISINOPRIL 20 MG TABLET PO SCH (08:02)
[2018-05-31] MEDS: CETIRIZINE HCL 10 MG TABLET. PO SCH (08:02)
[2018-05-31] MEDS: GABAPENTIN 300 MG CAPSULE. PO SCH ×2 (08:02→21:26)
[2018-05-31] MEDS: MULTIVITAMIN with MINERAL TABLET. PO SCH (08:03)
[2018-05-31] MEDS: BACITRACIN/POLYMYXIN B TOPICAL OINT 15GM TUBE. TP SCH ×3 (08:06→21:26)
[2018-05-31] MEDS: INSULIN LISPRO 300 UNITS/3 ML INSULN.PEN. SQ SCH ×6 (08:17→17:17)
[2018-05-31] MEDS: INSULIN GLARGINE 300 UNITS/3 ML INSULN.PEN. SQ SCH ×2 (08:18→21:32)
--- NOTE | 2018-05-31 08:19 | PDOC ---
PROGRESS NOTES Chief Complaint Chief Complaint 1. marked complicated acute cellulitis left lower leg 2. diabetes 2, mod control 3. hypertension 4. leg wound with cellullitis in DM2 5. OBESITY, BMI 38 6. [place] prisoner low security 7. mod protein, caloric malnutrition History of Present Illness History of Present Illness Seen today. INR 1.6. On heparin GTT. To OR for wound debridement on 05/30/18 with vascular surgery. Wound culture shows staph aureus, mssa. He still has pain, better than prior to surgery. He is feeling overall a bit improved. No CP or SOB. constipated Plan: iv zosyn and vanc - ID seeing, likely downgrading antibiotics post op, will need IV cefazolin for MSSA Vascular surg has seen - To OR 05/30 for LLE debridement DM2 control, add SSI, wound care consult, pain control, arterial doppler both legs OK CBC, COMP Vitals Vitals Vital Signs Date Time Temp Pulse Resp B/P (MAP) Pulse Ox O2 Delivery O2 Flow Rate FiO2 05/31/18 08:02 80 117/60 05/31/18 07:59 95 Room Air 3.0 05/31/18 07:00 97.6 18 97.6 Physical Exam Physical Exam GENERAL: Propped up in bed, alert, NAD HEENT: Pupils equally round. Normal conjunctivae. Oral cavity: Pharynx pink and moist. No lesions. NECK: Supple. LUNGS: Clear to auscultation. HEART: S1 and S2. ABDOMEN: Obese, soft and nontender with bowel sounds present. EXTREMITIES: Unremarkable except for 2 fairly large annular ulcers on anterior left leg with black dry base and surrounding warmth, edema and redness extending medially to the thigh area. Distal pulses palpable. SKIN: wound vac in place, left thigh redness + NEUROLOGIC: Alert and responds appropriately. PIV ok General: Alert, Oriented X3, Cooperative Heart: Regular rate, Normal S1, Normal S2 Abdomen: Normal bowel sounds, Soft Extremities: Normal pulses Skin: No rashes Labs LABS Laboratory Tests Test 05/30/18 08:40 05/30/18 12:36 05/30/18 16:52 05/30/18 21:13 Glucose (Fingerstick) 117 mg/dL (70-99) 323 mg/dL (70-99) 292 mg/dL (70-99) 279 mg/dL (70-99) Test 05/31/18 05:05 05/31/18 07:07 White Blood Count 4.1 x10^3/uL (4.0-11.0) Red Blood Count 2.61 x10^6/uL (4.30-5.70) Hemoglobin 8.3 g/dL (13.0-17.5) Hematocrit 26.2 % (39.0-53.0) Mean Corpuscular Volume 100 fL (79-100) Mean Corpuscular Hemoglobin 32 pg (25-35) Mean Corpuscular Hemoglobin Concent 32 g/dL (31-37) Red Cell Distribution Width 17.9 % (11.5-14.5) Platelet Count 136 x10^3/uL (140-400) Prothrombin Time 19.2 SEC (11.7-14.0) Prothromb Time International Ratio 1.6 (0.8-1.1) Heparin Anti-Xa Act, Unfractionated 0.49 IU/mL (0.30-0.70) Glucose (Fingerstick) 249 mg/dL (70-99) Comment Review of Relevant I have reviewed the following items anjana (where applicable) has been applied. Labs Laboratory Tests Test 05/29/18 11:56 05/29/18 16:16 05/29/18 21:07 05/30/18 04:45 Glucose (Fingerstick) 206 mg/dL (70-99) 195 mg/dL (70-99) 173 mg/dL (70-99) Prothrombin Time 19.4 SEC (11.7-14.0) Prothromb Time International Ratio 1.7 (0.8-1.1) Heparin Anti-Xa Act, Unfractionated 0.45 IU/mL (0.30-0.70) Test 05/30/18 06:49 05/30/18 08:40 05/30/18 12:36 05/30/18 16:52 Glucose (Fingerstick) 97 mg/dL (70-99) 117 mg/dL (70-99) 323 mg/dL (70-99) 292 mg/dL (70-99) Test 05/30/18 21:13 05/31/18 05:05 05/31/18 07:07 Glucose (Fingerstick) 279 mg/dL (70-99) 249 mg/dL (70-99) White Blood Count 4.1 x10^3/uL (4.0-11.0) Red Blood Count 2.61 x10^6/uL (4.30-5.70) Hemoglobin 8.3 g/dL (13.0-17.5) Hematocrit 26.2 % (39.0-53.0) Mean Corpuscular Volume 100 fL (79-100) Mean Corpuscular Hemoglobin 32 pg (25-35) Mean Corpuscular Hemoglobin Concent 32 g/dL (31-37) Red Cell Distribution Width 17.9 % (11.5-14.5) Platelet Count 136 x10^3/uL (140-400) Prothrombin Time 19.2 SEC (11.7-14.0) Prothromb Time International Ratio 1.6 (0.8-1.1) Heparin Anti-Xa Act, Unfractionated 0.49 IU/mL (0.30-0.70) Laboratory Tests Test 05/30/18 08:40 05/30/18 12:36 05/30/18 16:52 05/30/18 21:13 Glucose (Fingerstick) 117 mg/dL (70-99) 323 mg/dL (70-99) 292 mg/dL (70-99) 279 mg/dL (70-99) Test 05/31/18 05:05 05/31/18 07:07 White Blood Count 4.1 x10^3/uL (4.0-11.0) Red Blood Count 2.61 x10^6/uL (4.30-5.70) Hemoglobin 8.3 g/dL (13.0-17.5) Hematocrit 26.2 % (39.0-53.0) Mean Corpuscular Volume 100 fL (79-100) Mean Corpuscular Hemoglobin 32 pg (25-35) Mean Corpuscular Hemoglobin Concent 32 g/dL (31-37) Red Cell Distribution Width 17.9 % (11.5-14.5) Platelet Count 136 x10^3/uL (140-400) Prothrombin Time 19.2 SEC (11.7-14.0) Prothromb Time International Ratio 1.6 (0.8-1.1) Heparin Anti-Xa Act, Unfractionated 0.49 IU/mL (0.30-0.70) Glucose (Fingerstick) 249 mg/dL (70-99) Microbiology 05/25/18 Blood Culture - Final, Complete NO GROWTH AFTER 5 DAYS 05/26/18 Urine Culture - Final, Complete 05/26/18 Urine Culture Result 1 (LUCY) - Final, Complete 05/26/18 Anaerobic/Aerobic Culture, Resulted Pending 05/26/18 Anaerobic Culture Result 1 (LUCY), Resulted Pending 05/26/18 Aerobic Culture - Final, Resulted 05/26/18 Aerobic Culture Result 1 (LUCY) - Final, Resulted 05/26/18 Antimicrobic Susceptibility - Final, Resulted 05/26/18 Gram Stain - Final, Resulted 05/26/18 Gram Stain Result 1 (LUCY) - Final, Resulted 05/26/18 Gram Stain Result 2 (LUCY) - Final, Resulted Medications Current Medications Sodium Chloride 1,000 ml @ 100 mls/hr Q10H IV Last administered on 05/31/18at 06:10; Start 05/25/18 at 17:54 Ondansetron HCl (Zofran) 4 mg PRN Q4HRS PRN IV NAUSEA/VOMITING; Start 05/25/18 at 18:00 Zolpidem Tartrate (Ambien) 5 mg PRN QHS PRN PO INSOMNIA; Start 05/25/18 at 18: 00 Acetaminophen (Tylenol) 650 mg PRN Q4HRS PRN PO TEMP OVER 100.4F OR MILD PAIN Last administered on 05/26/18at 22:46; Start 05/25/18 at 18:00 Al Hydroxide/Mg Hydroxide (Mylanta Plus Xs) 30 ml PRN DAILY PRN PO HEARTBURN / GAS Last administered on 05/27/18at 17:49; Start 05/25/18 at 18:00 Clonidine HCl (Catapres) 0.1 mg PRN Q6HRS PRN PO SBP>160 OR DBP>90; Start 05/25 at 18:00 Diphenhydramine HCl (Benadryl) 25 mg PRN Q4HRS PRN IVP ITCHING; Start 05/25/18 at 18:00 Docusate Sodium (Colace) 100 mg PRN BID PRN PO CONSTIPATION; Start 05/25/18 at 18:00 Albuterol/ Ipratropium (Duoneb) 3 ml Q4HRS NEB Last administered on 05/31/18at 07:40; Start 05/25/18 at 20:00 Guaifenesin (Robitussin) 200 mg PRN Q4HRS PRN PO COUGH; Start 05/25/18 at 18:00 Lorazepam (Ativan) 0.5 mg PRN Q4HRS PRN PO ANXIETY / AGITATION Last administered on 05/26/18at 04:30; Start 05/25/18 at 18:00 Enoxaparin Sodium (Lovenox 40mg Syringe) 40 mg DAILY SQ Last administered on at 09:39; Start 05/26/18 at 09:00; Stop 05/26/18 at 16:30; Status DC Piperacillin Sod/ Tazobactam Sod 3.375 gm/Sodium Chloride 50 ml @ 100 mls/hr Q6HRS IV Last administered on 05/30/18at 06:06; Start 05/25/18 at 18:10; Stop at 11:12; Status DC Acetaminophen (Tylenol) 650 mg TID PRN PRN PO PAIN; Start 05/25/18 at 18:15; Status UNV Furosemide (Lasix) 20 mg DAILY PO ; Start 05/26/18 at 09:00; Stop 05/27/18 at 13 :28; Status DC Lisinopril (Prinivil) 20 mg DAILY PO Last administered on 05/31/18at 08:02; Start 05/26/18 at 09:00 Insulin Glargine (Lantus) 20 units BID SQ Last administered on 05/31/18 08:18 ; Start 05/25/18 at 21:00 Pioglitazone HCl (Actos) 45 mg DAILY PO Last administered on 05/31/18at 08:01; Start 05/26/18 at 09:00 Sennosides (Senna) 17.2 mg BID PO Last administered on 05/31/18at 08:01; Start 05/25/18 at 21:00 Warfarin Sodium (Coumadin) 4 mg DAILY16 PO Last administered on 05/26/18at 18:06 ; Start 05/25/18 at 21:00; Stop 05/27/18 at 11:16; Status DC Piperacillin Sod/ Tazobactam Sod 3.375 gm/Sodium Chloride 50 ml @ 100 mls/hr Q6HRS IV ; Start 05/26/18 at 00:00; Status UNV Vancomycin HCl (Vanco Per Pharmacy) 1 each PRN DAILY PRN MC SEE COMMENTS Last administered on 05/26/18at 16:08; Start 05/25/18 at 18:45; Stop 05/26/18 at 18:24 ; Status DC Vancomycin HCl 2 gm/Sodium Chloride 500 ml @ 250 mls/hr 1X ONCE IV Last administered on 05/25/18at 22:34; Start 05/25/18 at 19:00; Stop 05/25/18 at 20:59 ; Status DC Warfarin Sodium (Coumadin Per Physician) 1 each PRN DAILY PRN MC SEE COMMENTS Last administered on 05/26/18at 16:15; Start 05/25/18 at 20:45; Stop 05/27/18 at 11:16; Status DC Vancomycin HCl 1.5 gm/Sodium Chloride 500 ml @ 250 mls/hr Q12H IV Last administered on 05/26/18at 09:39; Start 05/26/18 at 09:00; Stop 05/26/18 at 18:24 ; Status DC Vancomycin HCl (Vancomycin Trough Level) 1 each 1X ONCE MC ; Start 05/27/18 at 08:30; Stop 05/27/18 at 08:30; Status DC Fentanyl Citrate (Fentanyl 2ml Vial) 50 mcg PRN Q3HRS PRN IV MODERATE TO SEVERE PAIN Last administered on 05/30/18at 08:58; Start 05/25/18 at 22:00 Albuterol Sulfate (Ventolin Neb Soln) 2.5 mg PRN Q6HRS PRN INH SHORTNESS OF BREATH; Start 05/26/18 at 10:15 Allopurinol (Zyloprim) 200 mg DAILY PO ; Start 05/26/18 at 11:00; Stop 05/26/18 at 16:09; Status DC Atorvastatin Calcium (Lipitor) 40 mg QHS PO Last administered on 05/30/18at 21: 15; Start 05/26/18 at 21:00 Cetirizine HCl (ZyrTEC) 10 mg DAILY PO Last administered on 05/31/18at 08:02; Start 05/26/18 at 10:30 Tamsulosin HCl (Flomax) 0.4 mg DAILY PO Last administered on 05/31/18at 08:01; Start 05/26/18 at 10:30 Gabapentin (Neurontin) 600 mg BID PO Last administered on 05/27/18 08:10; Start 05/26/18 at 10:15; Stop 05/27/18 at 13:29; Status DC Insulin Human Lispro (HumaLOG) 4 units TIDWMEALS SQ Last administered on 08:17; Start 05/26/18 at 17:00 Insulin Human Lispro (HumaLOG) 0-7 UNITS TIDWMEALS SQ Last administered on 05/31 08:18; Start 05/26/18 at 17:00 Dextrose (Dextrose 50%-Water Syringe) 12.5 gm PRN Q15MIN PRN IV SEE COMMENTS; Start 05/26/18 at 13:00 Metformin HCl (Glucophage) 1,000 mg BIDWMEALS PO Last administered on 08:01; Start 05/26/18 at 17:00 Linezolid/Dextrose 300 ml @ 300 mls/hr Q12HR IV Last administered on 11:04; Start 05/26/18 at 21:00; Stop 05/30/18 at 11:12; Status DC Heparin Sodium/ Dextrose 500 ml @ 0 mls/hr CONT PRN IV SEE I/O RECORD Last administered on 05/31/18at 03:17; Start 05/28/18 at 09:00 Heparin Sodium (Porcine) (Heparin Sodium) 3,400 unit PRN Q6HRS PRN IV FOR UFH LEVEL LESS THAN 0.2; Start 05/28/18 at 09:00 Heparin Sodium (Porcine) (Heparin Sodium) 1,700 unit PRN Q6HRS PRN IV FOR UFH LEVEL 0.2 - 0.29 Last administered on 05/28/18at 15:45; Start 05/28/18 at 09:00 Info (Anti-Coagulation Monitoring By Pharmacy) 1 each PRN DAILY PRN MC SEE COMMENTS Last administered on 05/29/18 10:59; Start 05/27/18 at 11:30 Lactobacillus Rhamnosus (Culturelle) 1 cap BID PO Last administered on 08:02; Start 05/27/18 at 21:00 Bacitracin/ Polymyxin B Sulfate (Polysporin) 1 ana TID TP Last administered on 05/31/18at 08:06; Start 05/27/18 at 14:00 Gabapentin (Neurontin) 600 mg DAILY08 PO Last administered on 05/31/18at 08:02; Start 05/28/18 at 08:00 Gabapentin (Neurontin) 900 mg HS PO Last administered on 05/30/18at 21:14; Start 05/27/18 at 21:00 Oxycodone/ Acetaminophen (Percocet 5/325) 1 tab PRN Q4HRS PRN PO MODERATE TO SEVERE PAIN Last administered on 05/31/18at 06:13; Start 05/27/18 at 14:30 Multivitamins (Thera M Plus) 1 tab DAILY PO Last administered on 05/31/18 08: 03; Start 05/28/18 at 17:00 Ascorbic Acid (Vitamin C) 500 mg DAILY PO Last administered on 05/31/18at 08:02 ; Start 05/28/18 at 17:00 Ondansetron HCl (Zofran) 4 mg PRN Q6HRS PRN IV NAUSEA/VOMITING; Start 05/30/18 at 07:00; Stop 05/30/18 at 15:00; Status DC Morphine Sulfate (Morphine Sulfate) 1 mg PRN Q10MIN PRN IV SEVERE PAIN Last administered on 05/30/18at 09:29; Start 05/30/18 at 07:00; Stop 05/30/18 at 15:00 ; Status DC Ringer's Solution 1,000 ml @ 30 mls/hr Q24H IV ; Start 05/30/18 at 07:00; Stop 05/30/18 at 11:36; Status DC Lidocaine HCl (Xylocaine-Mpf 1% 2ml Vial) 2 ml PRN 1X PRN ID PRIOR TO IV START ; Start 05/30/18 at 07:00; Stop 05/30/18 at 15:00; Status DC Hydromorphone HCl (Dilaudid) 0.5 mg PRN Q10MIN PRN IV SEV PAIN, Second choice; Start 05/30/18 at 07:00; Stop 05/30/18 at 15:00; Status DC Prochlorperazine Edisylate (Compazine) 5 mg PACU PRN PRN IV NAUSEA, MRX1; Start 05/30/18 at 07:00; Stop 05/30/18 at 15:00; Status DC Albuterol/ Ipratropium (Duoneb) 3 ml 1X ONCE NEB Last administered on at 07:10; Start 05/30/18 at 07:15; Stop 05/30/18 at 07:16; Status DC Fentanyl Citrate (Fentanyl 2ml Vial) 100 mcg STK-MED ONCE .ROUTE ; Start at 07:15; Stop 05/30/18 at 07:16; Status DC Ondansetron HCl (Zofran) 4 mg STK-MED ONCE .ROUTE ; Start 05/30/18 at 08:42; Stop 05/30/18 at 08:43; Status DC Propofol 20 ml @ As Directed STK-MED ONCE IV ; Start 05/30/18 at 08:43; Stop at 08:44; Status DC Lidocaine HCl (Lidocaine Pf 2% Vial) 5 ml STK-MED ONCE .ROUTE ; Start 05/30/18 at 08:43; Stop 05/30/18 at 08:44; Status DC Sevoflurane (Ultane) 30 ml STK-MED ONCE IH ; Start 05/30/18 at 08:44; Stop 05/30 at 08:45; Status DC Cefazolin Sodium/ Dextrose 50 ml @ 100 mls/hr Q8HRS IV ; Start 05/30/18 at 14: 00; Stop 05/30/18 at 14:00; Status DC Cefazolin Sodium 50 ml @ 100 mls/hr Q8HRS IV ; Start 05/30/18 at 14:00; Status UNV Cefazolin Sodium 1 gm/Dextrose 50 ml @ 100 mls/hr Q8HRS IV Last administered on 05/31/18at 06:11; Start 05/30/18 at 14:00 Active Scripts Active Reported Preparation H Ointment (Phenyleph/Mineral Oil/Petrolat) 28 Gm Oint.appl 28 Gm RC QID Muscle Rub Cream (Methyl Salicylate/Menthol) 113 Gm Cream..g. 1 Gm TP TID Proair Hfa Inhaler (Albuterol Sulfate) 8.5 Gm Hfa.aer.ad 1 Puff INH PRN Q6HRS PRN Zyrtec (Cetirizine Hcl) 10 Mg Tablet 1 Tab PO DAILY Atorvastatin Calcium 40 Mg Tablet 1 Tab PO QHS Metformin Hcl 1,000 Mg Tablet 1,000 Mg PO BIDWMEALS Gabapentin (Gabapentin) 300 Mg Capsule 300 Mg PO DAILY Gabapentin 600 Mg Tablet 600 Mg PO DAILY08 Flomax (Tamsulosin Hcl) 0.4 Mg Cap.er.24h 1 Cap PO DAILY Tylenol (Acetaminophen) 325 Mg Tablet 2 Tab PO TID PRN PRN Humulin R (Insulin Regular, Human) 100 Unit/1 Ml Vial 100 Unit IJ TIDAC Lisinopril 20 Mg Tablet 1 Tab PO DAILY Furosemide 20 Mg Tablet 1 Tab PO DAILY Coumadin (Warfarin Sodium) 4 Mg Tablet 1 Tab PO DAILY Actos (Pioglitazone Hcl) 45 Mg Tablet 1 Tab PO DAILY Novolin N (Nph, Human Insulin Isophane) 100 Unit/1 Ml Vial 20 Unit SQ BID Senna (Sennosides) 8.6 Mg Tablet 2 Mg PO BID Vitals/I & O Vital Sign - Last 24 Hours 05/30/18 05/30/18 05/30/18 05/30/18 08:35 08:35 08:45 08:48 Temp 98.9 98.9 Pulse 89 82 Resp 18 23 21 B/P (MAP) 133/57 132/56 Pulse Ox 97 100 100 O2 Delivery Simple Mask Mask Simple Mask Simple Mask O2 Flow Rate 10 10 10 10.0 05/30/18 05/30/18 05/30/18 05/30/18 08:58 09:00 09:15 09:17 Temp 98.9 98.9 98.9 98.9 Pulse 82 79 Resp 16 14 14 16 B/P (MAP) 123/53 126/54 Pulse Ox 97 97 98 98 O2 Delivery High Flow Nasal Cannula Nasal Cannula Nasal Cannula Nasal Cannula O2 Flow Rate 5.0 3 3 4.0 05/30/18 05/30/18 05/30/18 05/30/18 09:29 09:30 09:35 10:30 Temp 98.9 98.9 Pulse 78 Resp 15 17 B/P (MAP) 119/58 Pulse Ox 98 98 O2 Delivery Nasal Cannula Nasal Cannula Mask Room Air O2 Flow Rate 3.0 3.0 3.0 05/30/18 05/30/18 05/30/18 05/30/18 11:00 11:03 14:12 14:48 Temp 97.5 98.3 97.5 98.3 Pulse 84 82 80 Resp 18 18 B/P (MAP) 130/56 (80) 130/56 122/45 (70) Pulse Ox 96 95 O2 Delivery Room Air Room Air Room Air 05/30/18 05/30/18 05/30/18 05/30/18 15:36 19:00 20:00 20:31 Temp 97.5 97.5 Pulse 78 Resp 20 B/P (MAP) 113/58 (76) Pulse Ox 97 97 O2 Delivery Room Air Room Air Room Air Room Air 05/30/18 05/31/18 05/31/18 05/31/18 23:22 03:00 07:00 07:40 Temp 98.2 98.0 97.6 98.2 98.0 97.6 Pulse 86 80 80 Resp 20 18 18 B/P (MAP) 103/59 (74) 115/56 (75) 117/60 (79) Pulse Ox 92 93 93 95 O2 Delivery Room Air Room Air Room Air Room Air 05/31/18 05/31/18 07:59 08:02 Pulse 80 B/P (MAP) 117/60 Pulse Ox 95 O2 Delivery Room Air O2 Flow Rate 3.0 Intake and Output 05/30/18 05/30/18 05/31/18 14:59 22:59 06:59 Intake Total 1290 ml 850 ml Output Total 810 ml 650 ml 200 ml Balance 480 ml 200 ml -200 ml KATT MURILLO MD May 31, 2018 08:19
[2018-05-31 09:15] LABS: ALBUMIN 1.7 g/dL (3.4-5.0); ALBUMIN/GLOBULIN RATIO 0.5 (1.0-1.7); CALCIUM 8.1 mg/dL (8.5-10.1); CREATININE 1.3 mg/dL (0.7-1.3); GFR 56.7; POTASSIUM 5.5 mmol/L (3.5-5.1); TOTAL BILIRUBIN 0.1 mg/dL (0.2-1.0); TOTAL PROTEIN 5.2 g/dL (6.4-8.2)
--- NOTE | 2018-05-31 09:55 | PDOC ---
Infectious Disease Note Subjective Subjective much better ROS ROS no n/v/d/sob Vital Sign Vital Signs Vital Signs Date Time Temp Pulse Resp B/P (MAP) Pulse Ox O2 Delivery O2 Flow Rate FiO2 05/31/18 08:02 80 117/60 05/31/18 08:00 Room Air 05/31/18 07:59 95 3.0 05/31/18 07:00 97.6 18 97.6 Physical Exam PHYSICAL EXAM GENERAL: Propped up in bed, alert, NAD HEENT: Pupils equally round. Normal conjunctivae. Oral cavity: Pharynx pink and moist. No lesions. NECK: Supple. LUNGS: Clear to auscultation. HEART: S1 and S2. ABDOMEN: Obese, soft and nontender with bowel sounds present. EXTREMITIES: Unremarkable except for 2 fairly large annular ulcers on anterior left leg with black dry base and surrounding warmth, edema and redness extending medially to the thigh area. Distal pulses palpable. SKIN: wound vac in place, left thigh redness + NEUROLOGIC: Alert and responds appropriately. PIV ok Labs Lab Laboratory Tests Test 05/30/18 12:36 05/30/18 16:52 05/30/18 21:13 05/31/18 05:05 Glucose (Fingerstick) 323 mg/dL (70-99) 292 mg/dL (70-99) 279 mg/dL (70-99) White Blood Count 4.1 x10^3/uL (4.0-11.0) Red Blood Count 2.61 x10^6/uL (4.30-5.70) Hemoglobin 8.3 g/dL (13.0-17.5) Hematocrit 26.2 % (39.0-53.0) Mean Corpuscular Volume 100 fL (79-100) Mean Corpuscular Hemoglobin 32 pg (25-35) Mean Corpuscular Hemoglobin Concent 32 g/dL (31-37) Red Cell Distribution Width 17.9 % (11.5-14.5) Platelet Count 136 x10^3/uL (140-400) Prothrombin Time 19.2 SEC (11.7-14.0) Prothromb Time International Ratio 1.6 (0.8-1.1) Heparin Anti-Xa Act, Unfractionated 0.49 IU/mL (0.30-0.70) Sodium Level 141 mmol/L (136-145) Potassium Level 5.5 mmol/L (3.5-5.1) Chloride Level 108 mmol/L (98-107) Carbon Dioxide Level 25 mmol/L (21-32) Anion Gap 8 (6-14) Blood Urea Nitrogen 25 mg/dL (8-26) Creatinine 1.3 mg/dL (0.7-1.3) Estimated GFR (Cockcroft-Gault) 56.7 BUN/Creatinine Ratio 19 (6-20) Glucose Level 270 mg/dL (70-99) Calcium Level 8.1 mg/dL (8.5-10.1) Total Bilirubin 0.1 mg/dL (0.2-1.0) Aspartate Amino Transf (AST/SGOT) 14 U/L (15-37) Alanine Aminotransferase (ALT/SGPT) 16 U/L (16-63) Alkaline Phosphatase 47 U/L (46-116) Total Protein 5.2 g/dL (6.4-8.2) Albumin 1.7 g/dL (3.4-5.0) Albumin/Globulin Ratio 0.5 (1.0-1.7) Test 05/31/18 07:07 Glucose (Fingerstick) 249 mg/dL (70-99) Micro Microbiology 05/25/18 Blood Culture - Preliminary, Resulted NO GROWTH AFTER 2 DAYS Objective Assessment 1. Cellulitis of left lower extremity. 2. Nonhealing wounds of left lower extremity since 2017, now with eschar. s/p I and D on 05/30/18 3. Fever. 4. Diabetes with peripheral neuropathy. 5. Peripheral vascular disease. 6. History of deep venous thrombosis, on warfarin therapy. 7. 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 He is followed by Dr. Schneider in [place] and takes Sutent for treatment per the patient. 8. Solitary kidney. 9. Incarceration. Plan Plan of Care cefazolin BC NGTD wound culture MSSA d/w nursing PETEY MARSHALL MD May 31, 2018 09:55
[2018-05-31 11:00] VITALS: BP 106/54
[2018-05-31] MEDS: ANTI-COAG MONITOR BY PHARMACY. MC PRN (13:35)
--- NOTE | 2018-05-31 14:21 | NUR ---
Pharmacy Warfarin Dosing Note S:Pharmacy consulted to assist with anticoagulation therapy started with target INR: 2 -3 O:HELADIO GAO is a 57 year old M with Recurrent VTE LABS: Last INR: 1.6 Last HGB: 8.3 Last HCT: 26.2 Last PLT: 136 Last dose of 4 mg given on 05/25/18 at 2134 Previous Regimen: 4 MG/D Vitamin K given: Drug Interaction Changes: Ongoing Drug Interactions: A:INR of 1.6 is below desired range. Target range for this patient is: 2 -3 P: Warfarin dose: 5 mg Today at 1600 Bridge Therapy: Heparin Therapeutic Next INR due TOMORROW. Pharmacy anticoagulation service will continue to follow. ALEXSANDRA GAO [facility], 05/31/18 [id number]
[2018-05-31 15:00] VITALS: BP 103/48
[2018-05-31] MEDS ORDERED: WARFARIN 5 MG TABLET. PO SCH (16:00)
[2018-05-31 19:50] VITALS: BP 114/60
[2018-05-31] MEDS: ATORVASTATIN CALCIUM 40 MG TABLET. PO SCH (21:26)
[2018-05-31 23:22] VITALS: BP 113/62
[2018-06-01] MEDS: IV NORMAL SALINE 1000ML BAG 1,000 ML IV SCH ×3 (01:20→22:22)
[2018-06-01] MEDS: oxyCODONE/APAP 5/325 1 TAB TABLET PO PRN ×5 (01:20→18:22)
[2018-06-01 03:28] VITALS: BP 119/64
[2018-06-01] MEDS: ceFAZolin SODIUM 1 GM in IV DEXTROSE 5% 50 ML IV SCH ×3 (05:51→22:22)
[2018-06-01] MEDS: HEPARIN 25,000UTS/500ML PREMIX 500 ML IV PRN ×2 (05:55→17:53)
[2018-06-01 06:16] LABS: PROTHROMBIN TIME PATIENT 15.8 SEC (11.7-14.0)
[2018-06-01 07:00] VITALS: BP 146/72
[2018-06-01] MEDS: INSULIN LISPRO 300 UNITS/3 ML INSULN.PEN. SQ SCH ×6 (08:00→17:08)
[2018-06-01] MEDS: IPRATRPIUM/ALBUTEROL 0.5/2.5MG 3 ML NEBU. NEB SCH ×4 (08:09→19:23)
--- NOTE | 2018-06-01 08:37 | PDOC ---
PROGRESS NOTES Chief Complaint Chief Complaint 1. marked complicated acute cellulitis left lower leg 2. diabetes 2, mod control 3. hypertension 4. leg wound with cellullitis in DM2 5. OBESITY, BMI 38 6. [place] prisoner low security 7. mod protein, caloric malnutrition History of Present Illness History of Present Illness Seen today. INR 1.3. On heparin GTT. To OR for wound debridement on 05/30/18 with vascular surgery. Wound culture shows staph aureus, mssa. He still has pain, better than prior to surgery. He is feeling overall a bit improved. No CP or SOB. constipated Plan: iv zosyn and vanc - ID seeing, likely downgrading antibiotics post op, will need IV cefazolin for MSSA He will need to continue heparin GTT to bridge back to therapeutic INR whether it can only be done inpatient is up to the [facility] Vascular surg has seen - To OR 05/30 for LLE debridement DM2 control, add SSI, wound care consult, pain control, arterial doppler both legs OK CBC, COMP Vitals Vitals Vital Signs Date Time Temp Pulse Resp B/P (MAP) Pulse Ox O2 Delivery O2 Flow Rate FiO2 06/01/18 08:11 93 Room Air 06/01/18 07:00 97.8 81 16 146/72 (96) 97.8 05/31/18 07:59 3.0 Physical Exam Physical Exam GENERAL: Propped up in bed, alert, NAD HEENT: Pupils equally round. Normal conjunctivae. Oral cavity: Pharynx pink and moist. No lesions. NECK: Supple. LUNGS: Clear to auscultation. HEART: S1 and S2. ABDOMEN: Obese, soft and nontender with bowel sounds present. EXTREMITIES: Unremarkable except for 2 fairly large annular ulcers on anterior left leg with black dry base and surrounding warmth, edema and redness extending medially to the thigh area. Distal pulses palpable. SKIN: wound vac in place, left thigh redness + NEUROLOGIC: Alert and responds appropriately. PIV ok General: Alert, Oriented X3, Cooperative Heart: Regular rate, Normal S1, Normal S2 Abdomen: Normal bowel sounds, Soft Extremities: Normal pulses Skin: No rashes Labs LABS Laboratory Tests Test 05/31/18 11:16 05/31/18 16:45 05/31/18 20:33 06/01/18 04:57 Glucose (Fingerstick) 235 mg/dL (70-99) 122 mg/dL (70-99) 157 mg/dL (70-99) Prothrombin Time 15.8 SEC (11.7-14.0) Prothromb Time International Ratio 1.3 (0.8-1.1) Heparin Anti-Xa Act, Unfractionated 0.49 IU/mL (0.30-0.70) Test 06/01/18 07:54 Glucose (Fingerstick) 91 mg/dL (70-99) Comment Review of Relevant I have reviewed the following items anjana (where applicable) has been applied. Labs Laboratory Tests Test 05/30/18 08:40 05/30/18 12:36 05/30/18 16:52 05/30/18 21:13 Glucose (Fingerstick) 117 mg/dL (70-99) 323 mg/dL (70-99) 292 mg/dL (70-99) 279 mg/dL (70-99) Test 05/31/18 05:05 05/31/18 07:07 05/31/18 11:16 05/31/18 16:45 White Blood Count 4.1 x10^3/uL (4.0-11.0) Red Blood Count 2.61 x10^6/uL (4.30-5.70) Hemoglobin 8.3 g/dL (13.0-17.5) Hematocrit 26.2 % (39.0-53.0) Mean Corpuscular Volume 100 fL (79-100) Mean Corpuscular Hemoglobin 32 pg (25-35) Mean Corpuscular Hemoglobin Concent 32 g/dL (31-37) Red Cell Distribution Width 17.9 % (11.5-14.5) Platelet Count 136 x10^3/uL (140-400) Prothrombin Time 19.2 SEC (11.7-14.0) Prothromb Time International Ratio 1.6 (0.8-1.1) Heparin Anti-Xa Act, Unfractionated 0.49 IU/mL (0.30-0.70) Sodium Level 141 mmol/L (136-145) Potassium Level 5.5 mmol/L (3.5-5.1) Chloride Level 108 mmol/L (98-107) Carbon Dioxide Level 25 mmol/L (21-32) Anion Gap 8 (6-14) Blood Urea Nitrogen 25 mg/dL (8-26) Creatinine 1.3 mg/dL (0.7-1.3) Estimated GFR (Cockcroft-Gault) 56.7 BUN/Creatinine Ratio 19 (6-20) Glucose Level 270 mg/dL (70-99) Calcium Level 8.1 mg/dL (8.5-10.1) Total Bilirubin 0.1 mg/dL (0.2-1.0) Aspartate Amino Transf (AST/SGOT) 14 U/L (15-37) Alanine Aminotransferase (ALT/SGPT) 16 U/L (16-63) Alkaline Phosphatase 47 U/L (46-116) Total Protein 5.2 g/dL (6.4-8.2) Albumin 1.7 g/dL (3.4-5.0) Albumin/Globulin Ratio 0.5 (1.0-1.7) Glucose (Fingerstick) 249 mg/dL (70-99) 235 mg/dL (70-99) 122 mg/dL (70-99) Test 05/31/18 20:33 06/01/18 04:57 06/01/18 07:54 Glucose (Fingerstick) 157 mg/dL (70-99) 91 mg/dL (70-99) Prothrombin Time 15.8 SEC (11.7-14.0) Prothromb Time International Ratio 1.3 (0.8-1.1) Heparin Anti-Xa Act, Unfractionated 0.49 IU/mL (0.30-0.70) Laboratory Tests Test 05/31/18 11:16 05/31/18 16:45 05/31/18 20:33 06/01/18 04:57 Glucose (Fingerstick) 235 mg/dL (70-99) 122 mg/dL (70-99) 157 mg/dL (70-99) Prothrombin Time 15.8 SEC (11.7-14.0) Prothromb Time International Ratio 1.3 (0.8-1.1) Heparin Anti-Xa Act, Unfractionated 0.49 IU/mL (0.30-0.70) Test 06/01/18 07:54 Glucose (Fingerstick) 91 mg/dL (70-99) Microbiology 05/25/18 Blood Culture - Final, Complete NO GROWTH AFTER 5 DAYS 05/26/18 Urine Culture - Final, Complete 05/26/18 Urine Culture Result 1 (LUCY) - Final, Complete 05/26/18 Anaerobic/Aerobic Culture - Final, Complete 05/26/18 Anaerobic Culture Result 1 (LUCY) - Final, Complete 05/26/18 Aerobic Culture - Final, Complete 05/26/18 Aerobic Culture Result 1 (LUCY) - Final, Complete 05/26/18 Antimicrobic Susceptibility - Final, Complete 05/26/18 Gram Stain - Final, Complete 05/26/18 Gram Stain Result 1 (LUCY) - Final, Complete 05/26/18 Gram Stain Result 2 (LUCY) - Final, Complete Medications Current Medications Sodium Chloride 1,000 ml @ 100 mls/hr Q10H IV Last administered on 06/01/18at 01:20; Start 05/25/18 at 17:54 Ondansetron HCl (Zofran) 4 mg PRN Q4HRS PRN IV NAUSEA/VOMITING; Start 05/25/18 at 18:00 Zolpidem Tartrate (Ambien) 5 mg PRN QHS PRN PO INSOMNIA; Start 05/25/18 at 18: 00 Acetaminophen (Tylenol) 650 mg PRN Q4HRS PRN PO TEMP OVER 100.4F OR MILD PAIN Last administered on 05/26/18at 22:46; Start 05/25/18 at 18:00 Al Hydroxide/Mg Hydroxide (Mylanta Plus Xs) 30 ml PRN DAILY PRN PO HEARTBURN / GAS Last administered on 05/27/18at 17:49; Start 05/25/18 at 18:00 Clonidine HCl (Catapres) 0.1 mg PRN Q6HRS PRN PO SBP>160 OR DBP>90; Start 05/25 at 18:00 Diphenhydramine HCl (Benadryl) 25 mg PRN Q4HRS PRN IVP ITCHING; Start 05/25/18 at 18:00 Docusate Sodium (Colace) 100 mg PRN BID PRN PO CONSTIPATION; Start 05/25/18 at 18:00 Albuterol/ Ipratropium (Duoneb) 3 ml Q4HRS NEB Last administered on 05/31/18at 16:05; Start 05/25/18 at 20:00; Stop 05/31/18 at 18:30; Status DC Guaifenesin (Robitussin) 200 mg PRN Q4HRS PRN PO COUGH; Start 05/25/18 at 18:00 Lorazepam (Ativan) 0.5 mg PRN Q4HRS PRN PO ANXIETY / AGITATION Last administered on 05/26/18at 04:30; Start 05/25/18 at 18:00 Enoxaparin Sodium (Lovenox 40mg Syringe) 40 mg DAILY SQ Last administered on at 09:39; Start 05/26/18 at 09:00; Stop 05/26/18 at 16:30; Status DC Piperacillin Sod/ Tazobactam Sod 3.375 gm/Sodium Chloride 50 ml @ 100 mls/hr Q6HRS IV Last administered on 05/30/18at 06:06; Start 05/25/18 at 18:10; Stop at 11:12; Status DC Acetaminophen (Tylenol) 650 mg TID PRN PRN PO PAIN; Start 05/25/18 at 18:15; Status UNV Furosemide (Lasix) 20 mg DAILY PO ; Start 05/26/18 at 09:00; Stop 05/27/18 at 13 :28; Status DC Lisinopril (Prinivil) 20 mg DAILY PO Last administered on 05/31/18at 08:02; Start 05/26/18 at 09:00 Insulin Glargine (Lantus) 20 units BID SQ Last administered on 05/31/18at 21:32 ; Start 05/25/18 at 21:00 Pioglitazone HCl (Actos) 45 mg DAILY PO Last administered on 05/31/18at 08:01; Start 05/26/18 at 09:00 Sennosides (Senna) 17.2 mg BID PO Last administered on 05/31/18at 21:26; Start 05/25/18 at 21:00 Warfarin Sodium (Coumadin) 4 mg DAILY16 PO Last administered on 05/26/18at 18:06 ; Start 05/25/18 at 21:00; Stop 05/27/18 at 11:16; Status DC Piperacillin Sod/ Tazobactam Sod 3.375 gm/Sodium Chloride 50 ml @ 100 mls/hr Q6HRS IV ; Start 05/26/18 at 00:00; Status UNV Vancomycin HCl (Vanco Per Pharmacy) 1 each PRN DAILY PRN MC SEE COMMENTS Last administered on 05/26/18 16:08; Start 05/25/18 at 18:45; Stop 05/26/18 at 18:24 ; Status DC Vancomycin HCl 2 gm/Sodium Chloride 500 ml @ 250 mls/hr 1X ONCE IV Last administered on 05/25/18at 22:34; Start 05/25/18 at 19:00; Stop 05/25/18 at 20:59 ; Status DC Warfarin Sodium (Coumadin Per Physician) 1 each PRN DAILY PRN MC SEE COMMENTS Last administered on 05/26/18at 16:15; Start 05/25/18 at 20:45; Stop 05/27/18 at 11:16; Status DC Vancomycin HCl 1.5 gm/Sodium Chloride 500 ml @ 250 mls/hr Q12H IV Last administered on 05/26/18at 09:39; Start 05/26/18 at 09:00; Stop 05/26/18 at 18:24 ; Status DC Vancomycin HCl (Vancomycin Trough Level) 1 each 1X ONCE MC ; Start 05/27/18 at 08:30; Stop 05/27/18 at 08:30; Status DC Fentanyl Citrate (Fentanyl 2ml Vial) 50 mcg PRN Q3HRS PRN IV MODERATE TO SEVERE PAIN Last administered on 05/30/18at 08:58; Start 05/25/18 at 22:00 Albuterol Sulfate (Ventolin Neb Soln) 2.5 mg PRN Q6HRS PRN INH SHORTNESS OF BREATH; Start 05/26/18 at 10:15 Allopurinol (Zyloprim) 200 mg DAILY PO ; Start 05/26/18 at 11:00; Stop 05/26/18 at 16:09; Status DC Atorvastatin Calcium (Lipitor) 40 mg QHS PO Last administered on 05/31/18at 21: 26; Start 05/26/18 at 21:00 Cetirizine HCl (ZyrTEC) 10 mg DAILY PO Last administered on 05/31/18at 08:02; Start 05/26/18 at 10:30 Tamsulosin HCl (Flomax) 0.4 mg DAILY PO Last administered on 05/31/18at 08:01; Start 05/26/18 at 10:30 Gabapentin (Neurontin) 600 mg BID PO Last administered on 05/27/18at 08:10; Start 05/26/18 at 10:15; Stop 05/27/18 at 13:29; Status DC Insulin Human Lispro (HumaLOG) 4 units TIDWMEALS SQ Last administered on at 17:17; Start 05/26/18 at 17:00 Insulin Human Lispro (HumaLOG) 0-7 UNITS TIDWMEALS SQ Last administered on 05/31at 11:51; Start 05/26/18 at 17:00 Dextrose (Dextrose 50%-Water Syringe) 12.5 gm PRN Q15MIN PRN IV SEE COMMENTS; Start 05/26/18 at 13:00 Metformin HCl (Glucophage) 1,000 mg BIDWMEALS PO Last administered on at 17:14; Start 05/26/18 at 17:00 Linezolid/Dextrose 300 ml @ 300 mls/hr Q12HR IV Last administered on at 11:04; Start 05/26/18 at 21:00; Stop 05/30/18 at 11:12; Status DC Heparin Sodium/ Dextrose 500 ml @ 0 mls/hr CONT PRN IV SEE I/O RECORD Last administered on 06/01/18at 05:55; Start 05/28/18 at 09:00 Heparin Sodium (Porcine) (Heparin Sodium) 3,400 unit PRN Q6HRS PRN IV FOR UFH LEVEL LESS THAN 0.2; Start 05/28/18 at 09:00 Heparin Sodium (Porcine) (Heparin Sodium) 1,700 unit PRN Q6HRS PRN IV FOR UFH LEVEL 0.2 - 0.29 Last administered on 05/28/18at 15:45; Start 05/28/18 at 09:00 Info (Anti-Coagulation Monitoring By Pharmacy) 1 each PRN DAILY PRN MC SEE COMMENTS Last administered on 05/31/18at 13:35; Start 05/27/18 at 11:30 Lactobacillus Rhamnosus (Culturelle) 1 cap BID PO Last administered on 21:26; Start 05/27/18 at 21:00 Bacitracin/ Polymyxin B Sulfate (Polysporin) 1 ana TID TP Last administered on 05/31/18at 21:26; Start 05/27/18 at 14:00 Gabapentin (Neurontin) 600 mg DAILY08 PO Last administered on 05/31/18at 08:02; Start 05/28/18 at 08:00 Gabapentin (Neurontin) 900 mg HS PO Last administered on 05/31/18at 21:26; Start 05/27/18 at 21:00 Oxycodone/ Acetaminophen (Percocet 5/325) 1 tab PRN Q4HRS PRN PO MODERATE TO SEVERE PAIN Last administered on 06/01/18at 05:51; Start 05/27/18 at 14:30 Multivitamins (Thera M Plus) 1 tab DAILY PO Last administered on 05/31/18at 08: 03; Start 05/28/18 at 17:00 Ascorbic Acid (Vitamin C) 500 mg DAILY PO Last administered on 05/31/18at 08:02 ; Start 05/28/18 at 17:00 Ondansetron HCl (Zofran) 4 mg PRN Q6HRS PRN IV NAUSEA/VOMITING; Start 05/30/18 at 07:00; Stop 05/30/18 at 15:00; Status DC Morphine Sulfate (Morphine Sulfate) 1 mg PRN Q10MIN PRN IV SEVERE PAIN Last administered on 05/30/18at 09:29; Start 05/30/18 at 07:00; Stop 05/30/18 at 15:00 ; Status DC Ringer's Solution 1,000 ml @ 30 mls/hr Q24H IV ; Start 05/30/18 at 07:00; Stop 05/30/18 at 11:36; Status DC Lidocaine HCl (Xylocaine-Mpf 1% 2ml Vial) 2 ml PRN 1X PRN ID PRIOR TO IV START ; Start 05/30/18 at 07:00; Stop 05/30/18 at 15:00; Status DC Hydromorphone HCl (Dilaudid) 0.5 mg PRN Q10MIN PRN IV SEV PAIN, Second choice; Start 05/30/18 at 07:00; Stop 05/30/18 at 15:00; Status DC Prochlorperazine Edisylate (Compazine) 5 mg PACU PRN PRN IV NAUSEA, MRX1; Start 05/30/18 at 07:00; Stop 05/30/18 at 15:00; Status DC Albuterol/ Ipratropium (Duoneb) 3 ml 1X ONCE NEB Last administered on at 07:10; Start 05/30/18 at 07:15; Stop 05/30/18 at 07:16; Status DC Fentanyl Citrate (Fentanyl 2ml Vial) 100 mcg STK-MED ONCE .ROUTE ; Start at 07:15; Stop 05/30/18 at 07:16; Status DC Ondansetron HCl (Zofran) 4 mg STK-MED ONCE .ROUTE ; Start 05/30/18 at 08:42; Stop 05/30/18 at 08:43; Status DC Propofol 20 ml @ As Directed STK-MED ONCE IV ; Start 05/30/18 at 08:43; Stop at 08:44; Status DC Lidocaine HCl (Lidocaine Pf 2% Vial) 5 ml STK-MED ONCE .ROUTE ; Start 05/30/18 at 08:43; Stop 05/30/18 at 08:44; Status DC Sevoflurane (Ultane) 30 ml STK-MED ONCE IH ; Start 05/30/18 at 08:44; Stop 05/30 at 08:45; Status DC Cefazolin Sodium/ Dextrose 50 ml @ 100 mls/hr Q8HRS IV ; Start 05/30/18 at 14: 00; Stop 05/30/18 at 14:00; Status DC Cefazolin Sodium 50 ml @ 100 mls/hr Q8HRS IV ; Start 05/30/18 at 14:00; Status UNV Cefazolin Sodium 1 gm/Dextrose 50 ml @ 100 mls/hr Q8HRS IV Last administered on 06/01/18at 05:51; Start 05/30/18 at 14:00 Warfarin Sodium (Coumadin Per Pharmacy) 1 each PRN DAILY PRN MC SEE COMMENTS Last administered on 05/31/18at 14:20; Start 05/31/18 at 14:15 Warfarin Sodium (Coumadin) 5 mg DAILY16 PO Last administered on 05/31/18at 16:54 ; Start 05/31/18 at 16:00 Albuterol/ Ipratropium (Duoneb) 3 ml QID NEB Last administered on 06/01/18at 08: 09; Start 05/31/18 at 20:00 Active Scripts Active Reported Preparation H Ointment (Phenyleph/Mineral Oil/Petrolat) 28 Gm Oint.appl 28 Gm RC QID Muscle Rub Cream (Methyl Salicylate/Menthol) 113 Gm Cream..g. 1 Gm TP TID Proair Hfa Inhaler (Albuterol Sulfate) 8.5 Gm Hfa.aer.ad 1 Puff INH PRN Q6HRS PRN Zyrtec (Cetirizine Hcl) 10 Mg Tablet 1 Tab PO DAILY Atorvastatin Calcium 40 Mg Tablet 1 Tab PO QHS Metformin Hcl 1,000 Mg Tablet 1,000 Mg PO BIDWMEALS Gabapentin (Gabapentin) 300 Mg Capsule 300 Mg PO DAILY Gabapentin 600 Mg Tablet 600 Mg PO DAILY08 Flomax (Tamsulosin Hcl) 0.4 Mg Cap.er.24h 1 Cap PO DAILY Tylenol (Acetaminophen) 325 Mg Tablet 2 Tab PO TID PRN PRN Humulin R (Insulin Regular, Human) 100 Unit/1 Ml Vial 100 Unit IJ TIDAC Lisinopril 20 Mg Tablet 1 Tab PO DAILY Furosemide 20 Mg Tablet 1 Tab PO DAILY Coumadin (Warfarin Sodium) 4 Mg Tablet 1 Tab PO DAILY Actos (Pioglitazone Hcl) 45 Mg Tablet 1 Tab PO DAILY Novolin N (Nph, Human Insulin Isophane) 100 Unit/1 Ml Vial 20 Unit SQ BID Senna (Sennosides) 8.6 Mg Tablet 2 Mg PO BID Vitals/I & O Vital Sign - Last 24 Hours 05/31/18 05/31/18 05/31/18 05/31/18 10:14 11:00 11:08 11:23 Temp 97.4 97.4 Pulse 90 Resp 20 B/P (MAP) 106/54 (71) Pulse Ox 94 O2 Delivery Room Air Room Air Room Air Room Air 05/31/18 05/31/18 05/31/18 05/31/18 15:00 16:06 19:46 19:50 Temp 98.1 98.3 98.1 98.3 Pulse 85 93 Resp 20 16 B/P (MAP) 103/48 (66) 114/60 (78) Pulse Ox 92 94 93 O2 Delivery Room Air Room Air Room Air Room Air 05/31/18 05/31/18 06/01/18 06/01/18 20:32 23:22 03:28 07:00 Temp 97.5 97.6 97.8 97.5 97.6 97.8 Pulse 90 77 81 Resp 16 16 16 B/P (MAP) 113/62 (79) 119/64 (82) 146/72 (96) Pulse Ox 91 92 91 O2 Delivery Room Air Room Air Room Air Room Air 06/01/18 08:11 Pulse Ox 93 O2 Delivery Room Air Intake and Output 05/31/18 05/31/18 06/01/18 15:00 23:00 07:00 Intake Total 500 ml 500 ml 800 ml Output Total 1000 ml Balance 500 ml 500 ml -200 ml KATT MURILLO MD Jun 01, 2018 08:37
[2018-06-01] MEDS: INSULIN GLARGINE 300 UNITS/3 ML INSULN.PEN. SQ SCH ×2 (09:00→22:46)
[2018-06-01] MEDS: BACITRACIN/POLYMYXIN B TOPICAL OINT 15GM TUBE. TP SCH ×3 (09:00→22:45)
[2018-06-01] MEDS: TAMSULOSIN 0.4 MG CAP.ER.24H. PO SCH (09:27)
[2018-06-01] MEDS: CETIRIZINE HCL 10 MG TABLET. PO SCH (09:27)
[2018-06-01] MEDS: SENNOSIDES 8.6 MG TABLET PO SCH ×2 (09:27→22:21)
[2018-06-01] MEDS: MULTIVITAMIN with MINERAL TABLET. PO SCH (09:27)
[2018-06-01] MEDS: GABAPENTIN 300 MG CAPSULE. PO SCH ×2 (09:27→22:21)
[2018-06-01] MEDS: metFORMIN 500 MG TABLET PO SCH ×2 (09:27→16:59)
[2018-06-01] MEDS: ASCORBIC ACID 500 MG TABLET PO SCH (09:27)
[2018-06-01] MEDS: PIOGLITAZONE 15 MG TABLET. PO SCH (09:27)
[2018-06-01] MEDS: LISINOPRIL 20 MG TABLET PO SCH (09:28)
[2018-06-01] MEDS: LACTOBACILLUS RHAMNOSUS GG 1 CAPSULE. PO SCH ×2 (09:28→22:21)
--- NOTE | 2018-06-01 10:47 | PDOC ---
Infectious Disease Note Subjective Subjective much better ROS ROS no n/v/d/sob Vital Sign Vital Signs Vital Signs Date Time Temp Pulse Resp B/P (MAP) Pulse Ox O2 Delivery O2 Flow Rate FiO2 06/01/18 09:28 81 146/72 06/01/18 08:11 93 Room Air 06/01/18 08:00 3.0 06/01/18 07:00 97.8 16 97.8 Physical Exam PHYSICAL EXAM GENERAL: Propped up in bed, alert, NAD HEENT: Pupils equally round. Normal conjunctivae. Oral cavity: Pharynx pink and moist. No lesions. NECK: Supple. LUNGS: Clear to auscultation. HEART: S1 and S2. ABDOMEN: Obese, soft and nontender with bowel sounds present. EXTREMITIES: Unremarkable except for 2 fairly large annular ulcers on anterior left leg with black dry base and surrounding warmth, edema and redness extending medially to the thigh area. Distal pulses palpable. SKIN: wound vac in place, left thigh redness + NEUROLOGIC: Alert and responds appropriately. PIV ok Labs Lab Laboratory Tests Test 05/31/18 11:16 05/31/18 16:45 05/31/18 20:33 06/01/18 04:57 Glucose (Fingerstick) 235 mg/dL (70-99) 122 mg/dL (70-99) 157 mg/dL (70-99) Prothrombin Time 15.8 SEC (11.7-14.0) Prothromb Time International Ratio 1.3 (0.8-1.1) Heparin Anti-Xa Act, Unfractionated 0.49 IU/mL (0.30-0.70) Test 06/01/18 07:54 Glucose (Fingerstick) 91 mg/dL (70-99) Micro Microbiology 05/25/18 Blood Culture - Preliminary, Resulted NO GROWTH AFTER 2 DAYS Objective Assessment 1. Cellulitis of left lower extremity. 2. Nonhealing wounds of left lower extremity since 2017, now with eschar. s/p I and D on 05/30/18 3. Fever. 4. Diabetes with peripheral neuropathy. 5. Peripheral vascular disease. 6. History of deep venous thrombosis, on warfarin therapy. 7. 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 He is followed by Dr. Schneider in [place] and takes Sutent for treatment per the patient. 8. Solitary kidney. 9. Incarceration. Plan Plan of Care cefazolin,,, cont iv, soon to change to po keflex for d/c wound vac BC NGTD wound culture MSSA d/w nursing PETEY MARSHALL MD Jun 01, 2018 10:47
[2018-06-01 11:00] VITALS: BP 126/63
[2018-06-01] MEDS: fentaNYL PF VIAL 100 MCG/2 ML VIAL IV PRN ×3 (11:18→22:21)
[2018-06-01] MEDS: ANTI-COAG MONITOR BY PHARMACY. MC PRN (13:02)
--- NOTE | 2018-06-01 13:19 | NUR ---
Pharmacy Warfarin Dosing Note S:Pharmacy consulted to assist with anticoagulation therapy started with target INR: 2 -3 O:HELADIO GAO is a 57 year old M with Recurrent VTE LABS: Last INR: 1.3 Last HGB: 8.3 (05/31) Last HCT: 26.2 (05/31) Last PLT: 136 (05/31) Last dose of 5 mg given on 05/31/18 at 1654 Previous Regimen: 4 MG/D Vitamin K given: N Drug Interaction Changes: Same Interacting Drug Ongoing Drug Interactions: Heparin drip, cefazolin A:INR of 1.3 is below desired range. Target range for this patient is: 2 -3 P: Warfarin dose: 6 mg Today at 1600 Bridge Therapy: Heparin Therapeutic CONT Next INR due 06/02/18 Pharmacy anticoagulation service will continue to follow. LUIS BELL [facility], 06/01/18 [id number]
--- NOTE | 2018-06-01 14:09 | NUR ---
Wound Care Wound care follow up for post op assessment. Pt has VLU to LLE that were debrided on 05/30 with vac placement in OR. Dressing removed today by , removed gauze dressing, cleansed, measured and pictured wound and replaced vac dressing. NPWT set with vera flow at 125mmHg pressure with black foam and 14 ml NS soaks for 10 min every 3 hours. R arm wound is scabbed/resolved. No other wounds noted on full skin inspection. Pt left on side of bed with call light in reach, WC will follow up on Monday for next vac change.
[2018-06-01 15:00] VITALS: BP 135/61
[2018-06-01] MEDS ORDERED: WARFARIN 6 MG TABLET. PO ONE (16:00)
--- NOTE | 2018-06-01 16:33 | RAD ---
Indication:Shortness of Breath TECHNIQUE:Portable AP chest X-ray COMPARISON:05/25/2018 FINDINGS: Heart is normal in size. Multiple bilateral nodular opacities are seen. No focal consolidation. No pneumothorax or pleural effusion. Visualized bony thorax is within normal limits. IMPRESSION: Findings are highly concerning for metastasis. CT chest with IV contrast is strongly recommended. Electronically signed by: Luis Ko DO (06/01/2018 4:30 PM) [facility]
[2018-06-01] MEDS ORDERED: CONTRAST GIVEN. MC PRN (18:00)
[2018-06-01] MEDS ORDERED: IOHEXOL 300 MG/ML 100ML VIAL. IV ONE (18:00)
--- NOTE | 2018-06-01 18:09 | NUR ---
Notified Dr. Cortes of the findings of the CXR. Received orders to consult Dr. Haley and Dr. Be. Dr. Haley ordered CT Chest with contrast, upon explaining the test to the patient, he notified this RN that he has a confirmed diagnosis of lung cancer. The patient stated "I thought the doctors were aware." Notified Dr. Haley of this conversation. Will continue to monitor.
[2018-06-01 19:52] VITALS: BP 116/56
[2018-06-01] MEDS: ATORVASTATIN CALCIUM 40 MG TABLET. PO SCH (22:21)
--- NOTE | 2018-06-01 22:39 | RAD ---
CT CHEST W/CONTRAST Indication: Shortness of air, abnormal chest x-ray Technique: Postcontrast CT imaging was performed of the chest, multiplanar reconstruction images submitted. One or more of the following individualized dose reduction techniques were utilized for this examination: 1. Automated exposure control 2. Adjustment of the mA and/or kV according to patient size 3. Use of iterative reconstruction technique. Comparison: None other than chest radiograph the same day Findings: There are small dependent pleural effusions bilaterally. There are numerable scattered noncalcified masses of the bilateral hemithoraces. Largest mass of the right bridges the minor fissure into the right upper and right middle lobes, about 2.3 cm AP by 2.3 cm transverse by 2.1 cm CC. There is left hilar node about 1 cm short axis dimension. There is no pericardial effusion. Spot coronary calcification. Thoracic aortic caliber is within normal limits. There is right adrenal mass up to 2.1 cm. There is expansile right posterior ninth rib mass. There is mild coronary calcification. IMPRESSION: 1. There are innumerable bilateral lung masses, evidence of metastatic disease. There are small bilateral pleural effusions. There is expansile right posterior ninth rib mass. Electronically signed by: Yury Ann MD (06/01/2018 10:37 PM) [facility]
[2018-06-01 23:10] VITALS: BP 113/64
[2018-06-02 03:47] VITALS: BP 144/58
[2018-06-02] MEDS: fentaNYL PF VIAL 100 MCG/2 ML VIAL IV PRN ×4 (04:42→23:26)
[2018-06-02] MEDS: ceFAZolin SODIUM 1 GM in IV DEXTROSE 5% 50 ML IV SCH ×3 (05:50→21:31)
[2018-06-02] MEDS: IV NORMAL SALINE 1000ML BAG 1,000 ML IV SCH (05:50)
[2018-06-02] MEDS: HEPARIN 25,000UTS/500ML PREMIX 500 ML IV PRN ×2 (05:57→16:02)
[2018-06-02] MEDS: HEPARIN for IV BOLUS 10,000 UNIT/10 ML VIAL. IV PRN (06:17)
[2018-06-02 07:00] VITALS: BP 122/63
[2018-06-02] MEDS: IPRATRPIUM/ALBUTEROL 0.5/2.5MG 3 ML NEBU. NEB SCH ×4 (07:41→20:18)
[2018-06-02] MEDS: SENNOSIDES 8.6 MG TABLET PO SCH ×2 (08:56→21:26)
[2018-06-02] MEDS: PIOGLITAZONE 15 MG TABLET. PO SCH (08:56)
[2018-06-02] MEDS: MULTIVITAMIN with MINERAL TABLET. PO SCH (08:57)
[2018-06-02] MEDS: LACTOBACILLUS RHAMNOSUS GG 1 CAPSULE. PO SCH ×2 (08:57→21:26)
[2018-06-02] MEDS: LISINOPRIL 20 MG TABLET PO SCH (08:57)
[2018-06-02] MEDS: CETIRIZINE HCL 10 MG TABLET. PO SCH (08:57)
[2018-06-02] MEDS: ASCORBIC ACID 500 MG TABLET PO SCH (08:57)
[2018-06-02] MEDS: GABAPENTIN 300 MG CAPSULE. PO SCH ×2 (08:57→21:26)
[2018-06-02] MEDS: TAMSULOSIN 0.4 MG CAP.ER.24H. PO SCH (08:57)
--- NOTE | 2018-06-02 08:57 | PDOC2 ---
CONSULT Date of Consult Date of Consult DATE: 06/02/18 TIME: 08:49 Reason for Consult Reason for Consult: abnormal ct/cxr Referring Physician Referring Physician: hospitalist Identification/Chief Complaint Chief Complaint here for leg ulcer/cellulitis Source Source: Chart review, Patient History of Present Illness Reason for Visit: prior renal cell cancer 2011 s/p right nephrectomy. By his description, had metastatic lung nodules and had been on sutent from 2011 until the last month when it was stopped after cancer discovered to be progressing. He is going to be starting a new medication, but unsure of the name - he thinks it will be oral. Dr Schneider coordinates his care thru [facility] with the [employer] He currently has wound vac and on abx. 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 Past Medical History Cardiovascular: HTN CENTRAL NERVOUS SYSTEM: Periperal neuropathy GI: No pertinent hx Heme/Onc: No pertinent hx Musculoskeletal: Stiffness Infectious disease: No pertinent hx, Other ENT: No pertinent hx Renal/: No pertinent hx Endocrine: Diabetes Dermatology: Cellulitis Past Surgical History Past Surgical History: Hernia Repair, Other (nephrectomy 2011) Family History Family History: Hypertension Social History Social History incarcerated at [facility] No ALCOHOL: none Drugs: None Current Medications Current Medications Current Medications Sodium Chloride 1,000 ml @ 100 mls/hr Q10H IV Last administered on 06/02/18at 05:50; Start 05/25/18 at 17:54 Ondansetron HCl (Zofran) 4 mg PRN Q4HRS PRN IV NAUSEA/VOMITING; Start 05/25/18 at 18:00 Zolpidem Tartrate (Ambien) 5 mg PRN QHS PRN PO INSOMNIA; Start 05/25/18 at 18: 00 Acetaminophen (Tylenol) 650 mg PRN Q4HRS PRN PO TEMP OVER 100.4F OR MILD PAIN Last administered on 05/26/18at 22:46; Start 05/25/18 at 18:00 Al Hydroxide/Mg Hydroxide (Mylanta Plus Xs) 30 ml PRN DAILY PRN PO HEARTBURN / GAS Last administered on 05/27/18at 17:49; Start 05/25/18 at 18:00 Clonidine HCl (Catapres) 0.1 mg PRN Q6HRS PRN PO SBP>160 OR DBP>90; Start 05/25 at 18:00 Diphenhydramine HCl (Benadryl) 25 mg PRN Q4HRS PRN IVP ITCHING; Start 05/25/18 at 18:00 Docusate Sodium (Colace) 100 mg PRN BID PRN PO CONSTIPATION; Start 05/25/18 at 18:00 Albuterol/ Ipratropium (Duoneb) 3 ml Q4HRS NEB Last administered on 05/31/18at 16:05; Start 05/25/18 at 20:00; Stop 05/31/18 at 18:30; Status DC Guaifenesin (Robitussin) 200 mg PRN Q4HRS PRN PO COUGH; Start 05/25/18 at 18:00 Lorazepam (Ativan) 0.5 mg PRN Q4HRS PRN PO ANXIETY / AGITATION Last administered on 05/26/18at 04:30; Start 05/25/18 at 18:00 Enoxaparin Sodium (Lovenox 40mg Syringe) 40 mg DAILY SQ Last administered on at 09:39; Start 05/26/18 at 09:00; Stop 05/26/18 at 16:30; Status DC Piperacillin Sod/ Tazobactam Sod 3.375 gm/Sodium Chloride 50 ml @ 100 mls/hr Q6HRS IV Last administered on 05/30/18at 06:06; Start 05/25/18 at 18:10; Stop at 11:12; Status DC Acetaminophen (Tylenol) 650 mg TID PRN PRN PO PAIN; Start 05/25/18 at 18:15; Status UNV Furosemide (Lasix) 20 mg DAILY PO ; Start 05/26/18 at 09:00; Stop 05/27/18 at 13 :28; Status DC Lisinopril (Prinivil) 20 mg DAILY PO Last administered on 06/01/18at 09:28; Start 05/26/18 at 09:00 Insulin Glargine (Lantus) 20 units BID SQ Last administered on 06/01/18at 22:46 ; Start 05/25/18 at 21:00 Pioglitazone HCl (Actos) 45 mg DAILY PO Last administered on 06/01/18at 09:27; Start 05/26/18 at 09:00 Sennosides (Senna) 17.2 mg BID PO Last administered on 06/01/18at 22:21; Start 05/25/18 at 21:00 Warfarin Sodium (Coumadin) 4 mg DAILY16 PO Last administered on 05/26/18at 18:06 ; Start 05/25/18 at 21:00; Stop 05/27/18 at 11:16; Status DC Piperacillin Sod/ Tazobactam Sod 3.375 gm/Sodium Chloride 50 ml @ 100 mls/hr Q6HRS IV ; Start 05/26/18 at 00:00; Status UNV Vancomycin HCl (Vanco Per Pharmacy) 1 each PRN DAILY PRN MC SEE COMMENTS Last administered on 05/26/18at 16:08; Start 05/25/18 at 18:45; Stop 05/26/18 at 18:24 ; Status DC Vancomycin HCl 2 gm/Sodium Chloride 500 ml @ 250 mls/hr 1X ONCE IV Last administered on 05/25/18at 22:34; Start 05/25/18 at 19:00; Stop 05/25/18 at 20:59 ; Status DC Warfarin Sodium (Coumadin Per Physician) 1 each PRN DAILY PRN MC SEE COMMENTS Last administered on 05/26/18at 16:15; Start 05/25/18 at 20:45; Stop 05/27/18 at 11:16; Status DC Vancomycin HCl 1.5 gm/Sodium Chloride 500 ml @ 250 mls/hr Q12H IV Last administered on 05/26/18at 09:39; Start 05/26/18 at 09:00; Stop 05/26/18 at 18:24 ; Status DC Vancomycin HCl (Vancomycin Trough Level) 1 each 1X ONCE MC ; Start 05/27/18 at 08:30; Stop 05/27/18 at 08:30; Status DC Fentanyl Citrate (Fentanyl 2ml Vial) 50 mcg PRN Q3HRS PRN IV MODERATE TO SEVERE PAIN Last administered on 06/02/18at 04:42; Start 05/25/18 at 22:00 Albuterol Sulfate (Ventolin Neb Soln) 2.5 mg PRN Q6HRS PRN INH SHORTNESS OF BREATH; Start 05/26/18 at 10:15 Allopurinol (Zyloprim) 200 mg DAILY PO ; Start 05/26/18 at 11:00; Stop 05/26/18 at 16:09; Status DC Atorvastatin Calcium (Lipitor) 40 mg QHS PO Last administered on 06/01/18 22: 21; Start 05/26/18 at 21:00 Cetirizine HCl (ZyrTEC) 10 mg DAILY PO Last administered on 06/01/18 09:27; Start 05/26/18 at 10:30 Tamsulosin HCl (Flomax) 0.4 mg DAILY PO Last administered on 06/01/18 09:27; Start 05/26/18 at 10:30 Gabapentin (Neurontin) 600 mg BID PO Last administered on 05/27/18 08:10; Start 05/26/18 at 10:15; Stop 05/27/18 at 13:29; Status DC Insulin Human Lispro (HumaLOG) 4 units TIDWMEALS SQ Last administered on 17:08; Start 05/26/18 at 17:00 Insulin Human Lispro (HumaLOG) 0-7 UNITS TIDWMEALS SQ Last administered on 06/01at 12:21; Start 05/26/18 at 17:00 Dextrose (Dextrose 50%-Water Syringe) 12.5 gm PRN Q15MIN PRN IV SEE COMMENTS; Start 05/26/18 at 13:00 Metformin HCl (Glucophage) 1,000 mg BIDWMEALS PO Last administered on 16:59; Start 05/26/18 at 17:00; Stop 06/01/18 at 17:54; Status DC Linezolid/Dextrose 300 ml @ 300 mls/hr Q12HR IV Last administered on at 11:04; Start 05/26/18 at 21:00; Stop 05/30/18 at 11:12; Status DC Heparin Sodium/ Dextrose 500 ml @ 0 mls/hr CONT PRN IV SEE I/O RECORD Last administered on 06/02/18at 05:57; Start 05/28/18 at 09:00 Heparin Sodium (Porcine) (Heparin Sodium) 3,400 unit PRN Q6HRS PRN IV FOR UFH LEVEL LESS THAN 0.2; Start 05/28/18 at 09:00 Heparin Sodium (Porcine) (Heparin Sodium) 1,700 unit PRN Q6HRS PRN IV FOR UFH LEVEL 0.2 - 0.29 Last administered on 06/02/18 06:17; Start 05/28/18 at 09:00 Info (Anti-Coagulation Monitoring By Pharmacy) 1 each PRN DAILY PRN MC SEE COMMENTS Last administered on 06/01/18 13:02; Start 05/27/18 at 11:30 Lactobacillus Rhamnosus (Culturelle) 1 cap BID PO Last administered on 22:21; Start 05/27/18 at 21:00 Bacitracin/ Polymyxin B Sulfate (Polysporin) 1 ana TID TP Last administered on 06/01/18 22:45; Start 05/27/18 at 14:00 Gabapentin (Neurontin) 600 mg DAILY08 PO Last administered on 06/01/18 09:27; Start 05/28/18 at 08:00 Gabapentin (Neurontin) 900 mg HS PO Last administered on 06/01/18 22:21; Start 05/27/18 at 21:00 Oxycodone/ Acetaminophen (Percocet 5/325) 1 tab PRN Q4HRS PRN PO MODERATE TO SEVERE PAIN Last administered on 06/01/18 18:22; Start 05/27/18 at 14:30 Multivitamins (Thera M Plus) 1 tab DAILY PO Last administered on 06/01/18 09: 27; Start 05/28/18 at 17:00 Ascorbic Acid (Vitamin C) 500 mg DAILY PO Last administered on 06/01/18 09:27 ; Start 05/28/18 at 17:00 Ondansetron HCl (Zofran) 4 mg PRN Q6HRS PRN IV NAUSEA/VOMITING; Start 05/30/18 at 07:00; Stop 05/30/18 at 15:00; Status DC Morphine Sulfate (Morphine Sulfate) 1 mg PRN Q10MIN PRN IV SEVERE PAIN Last administered on 05/30/18 09:29; Start 05/30/18 at 07:00; Stop 05/30/18 at 15:00 ; Status DC Ringer's Solution 1,000 ml @ 30 mls/hr Q24H IV ; Start 05/30/18 at 07:00; Stop 05/30/18 at 11:36; Status DC Lidocaine HCl (Xylocaine-Mpf 1% 2ml Vial) 2 ml PRN 1X PRN ID PRIOR TO IV START ; Start 05/30/18 at 07:00; Stop 05/30/18 at 15:00; Status DC Hydromorphone HCl (Dilaudid) 0.5 mg PRN Q10MIN PRN IV SEV PAIN, Second choice; Start 05/30/18 at 07:00; Stop 05/30/18 at 15:00; Status DC Prochlorperazine Edisylate (Compazine) 5 mg PACU PRN PRN IV NAUSEA, MRX1; Start 05/30/18 at 07:00; Stop 05/30/18 at 15:00; Status DC Albuterol/ Ipratropium (Duoneb) 3 ml 1X ONCE NEB Last administered on at 07:10; Start 05/30/18 at 07:15; Stop 05/30/18 at 07:16; Status DC Fentanyl Citrate (Fentanyl 2ml Vial) 100 mcg STK-MED ONCE .ROUTE ; Start at 07:15; Stop 05/30/18 at 07:16; Status DC Ondansetron HCl (Zofran) 4 mg STK-MED ONCE .ROUTE ; Start 05/30/18 at 08:42; Stop 05/30/18 at 08:43; Status DC Propofol 20 ml @ As Directed STK-MED ONCE IV ; Start 05/30/18 at 08:43; Stop at 08:44; Status DC Lidocaine HCl (Lidocaine Pf 2% Vial) 5 ml STK-MED ONCE .ROUTE ; Start 05/30/18 at 08:43; Stop 05/30/18 at 08:44; Status DC Sevoflurane (Ultane) 30 ml STK-MED ONCE IH ; Start 05/30/18 at 08:44; Stop 05/30 at 08:45; Status DC Cefazolin Sodium/ Dextrose 50 ml @ 100 mls/hr Q8HRS IV ; Start 05/30/18 at 14: 00; Stop 05/30/18 at 14:00; Status DC Cefazolin Sodium 50 ml @ 100 mls/hr Q8HRS IV ; Start 05/30/18 at 14:00; Status UNV Cefazolin Sodium 1 gm/Dextrose 50 ml @ 100 mls/hr Q8HRS IV Last administered on 06/02/18at 05:50; Start 05/30/18 at 14:00 Warfarin Sodium (Coumadin Per Pharmacy) 1 each PRN DAILY PRN MC SEE COMMENTS Last administered on 06/01/18at 13:06; Start 05/31/18 at 14:15 Warfarin Sodium (Coumadin) 5 mg DAILY16 PO Last administered on 05/31/18at 16:54 ; Start 05/31/18 at 16:00; Stop 06/01/18 at 12:58; Status DC Albuterol/ Ipratropium (Duoneb) 3 ml QID NEB Last administered on 06/02/18at 07: 41; Start 05/31/18 at 20:00 Warfarin Sodium (Coumadin) 6 mg 1X WARF ONCE PO Last administered on at 17:47; Start 06/01/18 at 16:00; Stop 06/01/18 at 16:01; Status DC Iohexol (Omnipaque 300 Mg/ml) 60 ml 1X ONCE IV Last administered on 06/01/18at 22:03; Start 06/01/18 at 18:00; Stop 06/01/18 at 18:01; Status DC Metformin HCl (Glucophage) 1,000 mg BIDWMEALS PO ; Start 06/04/18 at 08:00 Info (CONTRAST GIVEN -- Rx MONITORING) 1 each PRN DAILY PRN MC SEE COMMENTS; Start 06/01/18 at 18:00; Stop 06/03/18 at 17:59 Active Scripts Active Reported Preparation H Ointment (Phenyleph/Mineral Oil/Petrolat) 28 Gm Oint.appl 28 Gm RC QID Muscle Rub Cream (Methyl Salicylate/Menthol) 113 Gm Cream..g. 1 Gm TP TID Proair Hfa Inhaler (Albuterol Sulfate) 8.5 Gm Hfa.aer.ad 1 Puff INH PRN Q6HRS PRN Zyrtec (Cetirizine Hcl) 10 Mg Tablet 1 Tab PO DAILY Atorvastatin Calcium 40 Mg Tablet 1 Tab PO QHS Metformin Hcl 1,000 Mg Tablet 1,000 Mg PO BIDWMEALS Gabapentin (Gabapentin) 300 Mg Capsule 300 Mg PO DAILY Gabapentin 600 Mg Tablet 600 Mg PO DAILY08 Flomax (Tamsulosin Hcl) 0.4 Mg Cap.er.24h 1 Cap PO DAILY Tylenol (Acetaminophen) 325 Mg Tablet 2 Tab PO TID PRN PRN Humulin R (Insulin Regular, Human) 100 Unit/1 Ml Vial 100 Unit IJ TIDAC Lisinopril 20 Mg Tablet 1 Tab PO DAILY Furosemide 20 Mg Tablet 1 Tab PO DAILY Coumadin (Warfarin Sodium) 4 Mg Tablet 1 Tab PO DAILY Actos (Pioglitazone Hcl) 45 Mg Tablet 1 Tab PO DAILY Novolin N (Nph, Human Insulin Isophane) 100 Unit/1 Ml Vial 20 Unit SQ BID Senna (Sennosides) 8.6 Mg Tablet 2 Mg PO BID Allergies Allergies: Coded Allergies: I S O L A T I O N *CONTACT* (Verified Allergy, Unknown, 04/05/18) mrsa No Known Medication Allergies (Verified Allergy, Unknown, 05/27/18) ibuprofen (Verified Adverse Reaction, Intermediate, 05/25/18) Warfarin ROS Respiratory: YES: SOB with excertion Skin: Yes Other (ulcer which he reports due to prior clot/post phlebitic syndrome) Physical Exam General: Alert, Oriented X3, Cooperative HEENT: Mucous membr. moist/pink Lungs: Clear to auscultation Heart: Regular rate Abdomen: Normal bowel sounds, No hepatosplenomegaly, Other (obese) Extremities: No clubbing, No cyanosis, No edema, Other (has wound vac left lee ) Skin: Other (as above, also almost petechial like rase right cheek which he says was due to med reaction) Neuro: Other (no gross changes) MUSCULOSKELETAL: No swelling Vitals VITALS Vital Signs Date Time Temp Pulse Resp B/P (MAP) Pulse Ox O2 Delivery O2 Flow Rate FiO2 06/02/18 07:44 92 Room Air 06/02/18 07:00 99.0 78 18 122/63 (82) 99.0 06/01/18 20:00 3.0 Labs Labs Laboratory Tests Test 05/31/18 11:16 05/31/18 16:45 05/31/18 20:33 06/01/18 04:57 Glucose (Fingerstick) 235 mg/dL (70-99) 122 mg/dL (70-99) 157 mg/dL (70-99) Prothrombin Time 15.8 SEC (11.7-14.0) Prothromb Time International Ratio 1.3 (0.8-1.1) Heparin Anti-Xa Act, Unfractionated 0.49 IU/mL (0.30-0.70) Test 06/01/18 07:54 06/01/18 10:59 06/01/18 16:55 06/01/18 20:54 Glucose (Fingerstick) 91 mg/dL (70-99) 238 mg/dL (70-99) 123 mg/dL (70-99) 124 mg/dL (70-99) Test 06/02/18 04:50 06/02/18 07:28 Heparin Anti-Xa Act, Unfractionated 0.20 IU/mL (0.30-0.70) Glucose (Fingerstick) 159 mg/dL (70-99) Laboratory Tests Test 06/01/18 10:59 06/01/18 16:55 06/01/18 20:54 06/02/18 04:50 Glucose (Fingerstick) 238 mg/dL (70-99) 123 mg/dL (70-99) 124 mg/dL (70-99) Heparin Anti-Xa Act, Unfractionated 0.20 IU/mL (0.30-0.70) Test 06/02/18 07:28 Glucose (Fingerstick) 159 mg/dL (70-99) Images Images Reviewed Ct and cxr Assessment/Plan Assessment/Plan Met renal cell cancer. His current imaging including CT c/w his history of met renal cell cancer which has progressed on sutent. That was previously known and by his report a treatment change is being planned. At this point, nothing different to recommend except to f/u and start new therapy when able. dvt history - post phlebtitic syndrome and chronic skin ulcer - on abx and has wound vac dm will sign off, but he should follow with his primary team managing his cancer JOSE POZO MD Jun 02, 2018 08:57
[2018-06-02] MEDS: INSULIN LISPRO 300 UNITS/3 ML INSULN.PEN. SQ SCH ×6 (09:03→17:09)
[2018-06-02] MEDS: BACITRACIN/POLYMYXIN B TOPICAL OINT 15GM TUBE. TP SCH ×3 (09:24→21:00)
[2018-06-02] MEDS: INSULIN GLARGINE 300 UNITS/3 ML INSULN.PEN. SQ SCH ×2 (09:26→21:37)
--- NOTE | 2018-06-02 10:25 | PDOC ---
Infectious Disease Note Subjective Subjective Doing alright Pain controlled Denie F/C/S/N/V/D/SOA ROS ROS per HPI Vital Sign Vital Signs Vital Signs Date Time Temp Pulse Resp B/P (MAP) Pulse Ox O2 Delivery O2 Flow Rate FiO2 06/02/18 08:57 78 122/63 06/02/18 08:00 Room Air 06/02/18 07:44 92 06/02/18 07:00 99.0 18 99.0 06/01/18 20:00 3.0 Physical Exam PHYSICAL EXAM GENERAL: Propped up in bed, alert, NAD HEENT: Oral cavity, pharynx pink and moist. herpetic-type lesions about the mouth/nares - dry/clearing NECK: Supple. LUNGS: Clear to auscultation. HEART: S1 and S2. ABDOMEN: Obese, soft and nontender with bowel sounds present. EXTREMITIES: Less LLE edema, wound vac in place + warmth and localized redness. DP palpable SKIN: without rash NEUROLOGIC: Alert and responds appropriately. Labs Lab Laboratory Tests Test 06/01/18 10:59 06/01/18 16:55 06/01/18 20:54 06/02/18 04:50 Glucose (Fingerstick) 238 mg/dL (70-99) 123 mg/dL (70-99) 124 mg/dL (70-99) Heparin Anti-Xa Act, Unfractionated 0.20 IU/mL (0.30-0.70) Test 06/02/18 07:28 Glucose (Fingerstick) 159 mg/dL (70-99) Micro Objective Assessment Cellulitis of left lower extremity,,improving Nonhealing wounds of LLE since 2017,, now with eschar. s/p I and D taken down to fascia on 05/30/18. MSSA -h/o MRSA and enterococcus penicillin sensitive -followed weekly by [facility] wound care center Fever,,better Diabetes with peripheral neuropathy PVD h/o DVT on warfarin therapy h/o kidney cancer with mets to lung -followed by Dr. Tomlinson in [place], was on Sutent per patient Solitary kidney Incarceration, MRSA screen positive Plan Plan of Care Continue cefazolin,,, soon to change to po keflex for d/c Probiotics wound vac BC neg wound culture MSSA d/w nursing Patient seen, examined, I agree with above assessment and plan LEONOR RAMAN APRN Jun 02, 2018 10:25 MARCELLE MARSHALL MD Jun 02, 2018 15:16
[2018-06-02] MEDS ORDERED: AZITHROMYCIN 250 MG TABLET. PO ONE (10:30)
--- NOTE | 2018-06-02 10:48 | CONS ---
DATE OF CONSULTATION: ATTENDING PHYSICIAN: Dr. Wilson. REASON FOR CONSULTATION: Multiple lung nodules, DVT. HISTORY OF PRESENT ILLNESS: The patient is 57-year-old obese male with a BMI of 38. He has a history of right nephrectomy in 2011 for renal cell carcinoma, per patient's history. He also had bladder involvement. He has had metastatic nodules at that time. He has been on Sutent from 2011 until last month when it was stopped after cancer was progressing. He was started on a new medication, but he is not sure of the name. The patient also reportedly has DVT since 1988. I have reviewed venous Dopplers from last year from 02/2018 as well as from 12/2016. The patient has significant left lower extremity DVT. He has been on anticoagulation, but I was told that the patient stopped anticoagulation in 2017. He was brought into the hospital with complaint of severe left lower extremity cellulitis. He has erythema. He had worsening of the wounds and possible infection was suspected. I have been asked to see him for further evaluation due to his abnormal chest x-ray which shows multiple lung nodules. CT of the chest was performed and it shows extensive lung nodules, in addition there is also right rib involvement. The patient has DVT for which he has been on Coumadin, which is on hold and has been on heparin as he had some mild hemoptysis. He has no significant history of tobacco use. Denies any headache. No nausea, vomiting or diarrhea. The patient is now started back on Coumadin per pharmacy. PAST MEDICAL HISTORY: Extensive and includes history of renal cell cancer, status post right nephrectomy, history of metastasis to the lungs. History of chronic DVTs since 1988. No significant history of tobacco use. History of left lower extremity cellulitis and wound. PAST SURGICAL HISTORY: Includes hernia repair, wound VAC. SOCIAL HISTORY: Denies any significant tobacco use or alcohol abuse. ALLERGIES: IBUPROFEN. MEDICATIONS: His current medications were reviewed, as listed in the [facility], including DuoNebs. He is also on cefazolin and warfarin. REVIEW OF SYSTEMS: Twelve-point system obtained. Pertinent positives discussed in my history of present illness, otherwise noncontributory. All systems that were negative were reviewed as well. PHYSICAL EXAMINATION: VITAL SIGNS: Reviewed. Pulse ox 92% on room air. NECK: Supple. LUNGS: Clear. CARDIOVASCULAR: Regular rate. ABDOMEN: Soft, obese. EXTREMITIES: With cellulitis in the left lower extremity and wound VAC. Some edema on the right leg. LABORATORY DATA: Reviewed. White cell count 4.1, hemoglobin 8.3 and platelets are 136. His BUN and creatinine is 25 and 1.3. Albumin is 1.7. His INR was 1.3 yesterday. IMPRESSION: 1. Multiple metastatic nodules in the lungs, likely related to underlying renal cell cancer with lung metastasis. He underwent right nephrectomy in 2011 for renal cancer. He was on oral Sutent from 2011 which was stopped last month due to progression of cancer. At this point, I do not see a need for any further biopsy and will leave it to Oncology about any further treatment. 2. History of chronic deep venous thrombosis since 1988. His venous Dopplers showing persistent deep venous thrombus in 2017 as well as from 02/2018. He will need lifelong anticoagulation. He likely has hypercoagulable state secondary to underlying malignancy. 3. Left lower extremity cellulitis, status post wound infection and wound VAC. Vascular Surgery following. 4. No significant history of tobacco use. 5. Hemoptysis, likely related to lung metastasis; however, lower respiratory tract infection/pneumonia is also another possibility since he has some yellow sputum production as well. At this time, I would broaden the antibiotics and add gram-negative coverage. 6. Anemia, needs to be closely followed up. RECOMMENDATIONS: 1. Continue with present heparin until INR is therapeutic. I would continue with Coumadin per pharmacy. 2. Needs to monitor hemoglobin closely and if it continues to fall, then he may be a candidate for IVC filter. 3. We will leave up to Renal regarding any further chemo options for his metastasis in the lungs. 4. He may need Radiation Oncology consult as well regarding right posterior ninth rib large metastatic lesion and for pain control. 5. Add gram-negative coverage with Zithromax. 6. Follow Vascular Surgery's input. 7. Follow Oncology's recommendation. 8. We will follow along with you. Discussed with RN. YE ALFARO MD DR: VANE/edgard JOB#: [id number] / [id number]
--- NOTE | 2018-06-02 12:53 | PDOC ---
PROGRESS NOTES Chief Complaint Chief Complaint 1. marked complicated acute cellulitis left lower leg, indwelling left wound VAC 2. diabetes 2, mod control 3. hypertension 4. leg wound with cellullitis in DM2 5. OBESITY, BMI 38 6. Yandy prisoner low security 7. mod protein, caloric malnutrition 8. 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 ThromboCytopenia, platelets 136 11. INmate History of Present Illness History of Present Illness He has no complaints Indwelling left wound VAC with remarkable postinflammatory hyperpigmentation and also some erythema on the left leg He came from home Barely could walk because of the significant left lower leg cellulitis He has multiple lung nodules, likely metastases from renal carcinoma He already has full follow-up with [facility] oncologist so we are not reinventing the wheel Urine culture blood culture negative Hemoglobin 8, WBC 4, platelets 136 with no bleeding Plan: continue heparin drip for now-multiple history DVT with multiple lung nodules likely mets We'll transition to OAC once off heparin drip Needs wait for social work Monday about wound care wound VAC in [facility] Monitor that thrombocytopenia especially patient on heparin drip Follow cultures, IV antibiotics per ID Vitals Vitals Vital Signs Date Time Temp Pulse Resp B/P (MAP) Pulse Ox O2 Delivery O2 Flow Rate FiO2 06/02/18 11:20 92 Room Air 06/02/18 08:57 78 122/63 06/02/18 07:00 99.0 18 99.0 06/01/18 20:00 3.0 Physical Exam Physical Exam GENERAL: Propped up in bed, alert, NAD HEENT: Oral cavity, pharynx pink and moist. herpetic-type lesions about the mouth/nares - dry/clearing NECK: Supple. LUNGS: Clear to auscultation. HEART: S1 and S2. ABDOMEN: Obese, soft and nontender with bowel sounds present. EXTREMITIES: Less LLE edema, wound vac in place + warmth and localized redness. DP palpable SKIN: without rash NEUROLOGIC: Alert and responds appropriately. General: Alert, Oriented X3, Cooperative Heart: Regular rate Abdomen: Normal bowel sounds, No hepatosplenomegaly, Other (obese) Extremities: No clubbing, No cyanosis, No edema, Other (has wound vac left lee ) Skin: Other (as above, also almost petechial like rase right cheek which he says was due to med reaction) Labs LABS Laboratory Tests Test 06/01/18 16:55 06/01/18 20:54 06/02/18 04:50 06/02/18 07:28 Glucose (Fingerstick) 123 mg/dL (70-99) 124 mg/dL (70-99) 159 mg/dL (70-99) Heparin Anti-Xa Act, Unfractionated 0.20 IU/mL (0.30-0.70) Test 06/02/18 11:49 Glucose (Fingerstick) 258 mg/dL (70-99) Review of Systems Review of Systems Left leg pain, otherwise rest of ROS 14 point negative Comment Review of Relevant I have reviewed the following items anjana (where applicable) has been applied. Labs Laboratory Tests Test 05/31/18 16:45 05/31/18 20:33 06/01/18 04:57 06/01/18 07:54 Glucose (Fingerstick) 122 mg/dL (70-99) 157 mg/dL (70-99) 91 mg/dL (70-99) Prothrombin Time 15.8 SEC (11.7-14.0) Prothromb Time International Ratio 1.3 (0.8-1.1) Heparin Anti-Xa Act, Unfractionated 0.49 IU/mL (0.30-0.70) Test 06/01/18 10:59 06/01/18 16:55 06/01/18 20:54 06/02/18 04:50 Glucose (Fingerstick) 238 mg/dL (70-99) 123 mg/dL (70-99) 124 mg/dL (70-99) Heparin Anti-Xa Act, Unfractionated 0.20 IU/mL (0.30-0.70) Test 06/02/18 07:28 06/02/18 11:49 Glucose (Fingerstick) 159 mg/dL (70-99) 258 mg/dL (70-99) Laboratory Tests Test 06/01/18 16:55 06/01/18 20:54 06/02/18 04:50 06/02/18 07:28 Glucose (Fingerstick) 123 mg/dL (70-99) 124 mg/dL (70-99) 159 mg/dL (70-99) Heparin Anti-Xa Act, Unfractionated 0.20 IU/mL (0.30-0.70) Test 06/02/18 11:49 Glucose (Fingerstick) 258 mg/dL (70-99) Microbiology 05/25/18 Blood Culture - Final, Complete NO GROWTH AFTER 5 DAYS 05/26/18 Urine Culture - Final, Complete 05/26/18 Urine Culture Result 1 (LUCY) - Final, Complete 05/26/18 Anaerobic/Aerobic Culture - Final, Complete 05/26/18 Anaerobic Culture Result 1 (LUCY) - Final, Complete 05/26/18 Aerobic Culture - Final, Complete 05/26/18 Aerobic Culture Result 1 (LUCY) - Final, Complete 05/26/18 Antimicrobic Susceptibility - Final, Complete 05/26/18 Gram Stain - Final, Complete 05/26/18 Gram Stain Result 1 (LUCY) - Final, Complete 05/26/18 Gram Stain Result 2 (LUCY) - Final, Complete Medications Current Medications Sodium Chloride 1,000 ml @ 100 mls/hr Q10H IV Last administered on 06/02/18at 05:50; Start 05/25/18 at 17:54 Ondansetron HCl (Zofran) 4 mg PRN Q4HRS PRN IV NAUSEA/VOMITING; Start 05/25/18 at 18:00 Zolpidem Tartrate (Ambien) 5 mg PRN QHS PRN PO INSOMNIA; Start 05/25/18 at 18: 00 Acetaminophen (Tylenol) 650 mg PRN Q4HRS PRN PO TEMP OVER 100.4F OR MILD PAIN Last administered on 05/26/18at 22:46; Start 05/25/18 at 18:00 Al Hydroxide/Mg Hydroxide (Mylanta Plus Xs) 30 ml PRN DAILY PRN PO HEARTBURN / GAS Last administered on 05/27/18at 17:49; Start 05/25/18 at 18:00 Clonidine HCl (Catapres) 0.1 mg PRN Q6HRS PRN PO SBP>160 OR DBP>90; Start 05/25 at 18:00 Diphenhydramine HCl (Benadryl) 25 mg PRN Q4HRS PRN IVP ITCHING; Start 05/25/18 at 18:00 Docusate Sodium (Colace) 100 mg PRN BID PRN PO CONSTIPATION; Start 05/25/18 at 18:00 Albuterol/ Ipratropium (Duoneb) 3 ml Q4HRS NEB Last administered on 05/31/18 16:05; Start 05/25/18 at 20:00; Stop 05/31/18 at 18:30; Status DC Guaifenesin (Robitussin) 200 mg PRN Q4HRS PRN PO COUGH; Start 05/25/18 at 18:00 Lorazepam (Ativan) 0.5 mg PRN Q4HRS PRN PO ANXIETY / AGITATION Last administered on 05/26/18at 04:30; Start 05/25/18 at 18:00 Enoxaparin Sodium (Lovenox 40mg Syringe) 40 mg DAILY SQ Last administered on at 09:39; Start 05/26/18 at 09:00; Stop 05/26/18 at 16:30; Status DC Piperacillin Sod/ Tazobactam Sod 3.375 gm/Sodium Chloride 50 ml @ 100 mls/hr Q6HRS IV Last administered on 05/30/18 06:06; Start 05/25/18 at 18:10; Stop at 11:12; Status DC Acetaminophen (Tylenol) 650 mg TID PRN PRN PO PAIN; Start 05/25/18 at 18:15; Status UNV Furosemide (Lasix) 20 mg DAILY PO ; Start 05/26/18 at 09:00; Stop 05/27/18 at 13 :28; Status DC Lisinopril (Prinivil) 20 mg DAILY PO Last administered on 06/02/18 08:57; Start 05/26/18 at 09:00 Insulin Glargine (Lantus) 20 units BID SQ Last administered on 06/02/18 09:26 ; Start 05/25/18 at 21:00 Pioglitazone HCl (Actos) 45 mg DAILY PO Last administered on 06/02/18 08:56; Start 05/26/18 at 09:00 Sennosides (Senna) 17.2 mg BID PO Last administered on 06/02/18 08:56; Start 05/25/18 at 21:00 Warfarin Sodium (Coumadin) 4 mg DAILY16 PO Last administered on 05/26/18at 18:06 ; Start 05/25/18 at 21:00; Stop 05/27/18 at 11:16; Status DC Piperacillin Sod/ Tazobactam Sod 3.375 gm/Sodium Chloride 50 ml @ 100 mls/hr Q6HRS IV ; Start 05/26/18 at 00:00; Status UNV Vancomycin HCl (Vanco Per Pharmacy) 1 each PRN DAILY PRN MC SEE COMMENTS Last administered on 05/26/18at 16:08; Start 05/25/18 at 18:45; Stop 05/26/18 at 18:24 ; Status DC Vancomycin HCl 2 gm/Sodium Chloride 500 ml @ 250 mls/hr 1X ONCE IV Last administered on 05/25/18at 22:34; Start 05/25/18 at 19:00; Stop 05/25/18 at 20:59 ; Status DC Warfarin Sodium (Coumadin Per Physician) 1 each PRN DAILY PRN MC SEE COMMENTS Last administered on 05/26/18at 16:15; Start 05/25/18 at 20:45; Stop 05/27/18 at 11:16; Status DC Vancomycin HCl 1.5 gm/Sodium Chloride 500 ml @ 250 mls/hr Q12H IV Last administered on 05/26/18at 09:39; Start 05/26/18 at 09:00; Stop 05/26/18 at 18:24 ; Status DC Vancomycin HCl (Vancomycin Trough Level) 1 each 1X ONCE MC ; Start 05/27/18 at 08:30; Stop 05/27/18 at 08:30; Status DC Fentanyl Citrate (Fentanyl 2ml Vial) 50 mcg PRN Q3HRS PRN IV MODERATE TO SEVERE PAIN Last administered on 06/02/18at 04:42; Start 05/25/18 at 22:00 Albuterol Sulfate (Ventolin Neb Soln) 2.5 mg PRN Q6HRS PRN INH SHORTNESS OF BREATH; Start 05/26/18 at 10:15 Allopurinol (Zyloprim) 200 mg DAILY PO ; Start 05/26/18 at 11:00; Stop 05/26/18 at 16:09; Status DC Atorvastatin Calcium (Lipitor) 40 mg QHS PO Last administered on 06/01/18at 22: 21; Start 05/26/18 at 21:00 Cetirizine HCl (ZyrTEC) 10 mg DAILY PO Last administered on 06/02/18at 08:57; Start 05/26/18 at 10:30 Tamsulosin HCl (Flomax) 0.4 mg DAILY PO Last administered on 06/02/18 08:57; Start 05/26/18 at 10:30 Gabapentin (Neurontin) 600 mg BID PO Last administered on 05/27/18at 08:10; Start 05/26/18 at 10:15; Stop 05/27/18 at 13:29; Status DC Insulin Human Lispro (HumaLOG) 4 units TIDWMEALS SQ Last administered on at 12:25; Start 05/26/18 at 17:00 Insulin Human Lispro (HumaLOG) 0-7 UNITS TIDWMEALS SQ Last administered on 06/02at 12:26; Start 05/26/18 at 17:00 Dextrose (Dextrose 50%-Water Syringe) 12.5 gm PRN Q15MIN PRN IV SEE COMMENTS; Start 05/26/18 at 13:00 Metformin HCl (Glucophage) 1,000 mg BIDWMEALS PO Last administered on at 16:59; Start 05/26/18 at 17:00; Stop 06/01/18 at 17:54; Status DC Linezolid/Dextrose 300 ml @ 300 mls/hr Q12HR IV Last administered on at 11:04; Start 05/26/18 at 21:00; Stop 05/30/18 at 11:12; Status DC Heparin Sodium/ Dextrose 500 ml @ 0 mls/hr CONT PRN IV SEE I/O RECORD Last administered on 06/02/18at 05:57; Start 05/28/18 at 09:00 Heparin Sodium (Porcine) (Heparin Sodium) 3,400 unit PRN Q6HRS PRN IV FOR UFH LEVEL LESS THAN 0.2; Start 05/28/18 at 09:00 Heparin Sodium (Porcine) (Heparin Sodium) 1,700 unit PRN Q6HRS PRN IV FOR UFH LEVEL 0.2 - 0.29 Last administered on 06/02/18at 06:17; Start 05/28/18 at 09:00 Info (Anti-Coagulation Monitoring By Pharmacy) 1 each PRN DAILY PRN MC SEE COMMENTS Last administered on 06/01/18at 13:02; Start 05/27/18 at 11:30 Lactobacillus Rhamnosus (Culturelle) 1 cap BID PO Last administered on 08:57; Start 05/27/18 at 21:00 Bacitracin/ Polymyxin B Sulfate (Polysporin) 1 ana TID TP Last administered on 06/02/18 09:24; Start 05/27/18 at 14:00 Gabapentin (Neurontin) 600 mg DAILY08 PO Last administered on 06/02/18 08:57; Start 05/28/18 at 08:00 Gabapentin (Neurontin) 900 mg HS PO Last administered on 06/01/18at 22:21; Start 05/27/18 at 21:00 Oxycodone/ Acetaminophen (Percocet 5/325) 1 tab PRN Q4HRS PRN PO MODERATE TO SEVERE PAIN Last administered on 06/01/18 18:22; Start 05/27/18 at 14:30 Multivitamins (Thera M Plus) 1 tab DAILY PO Last administered on 06/02/18 08: 57; Start 05/28/18 at 17:00 Ascorbic Acid (Vitamin C) 500 mg DAILY PO Last administered on 06/02/18 08:57 ; Start 05/28/18 at 17:00 Ondansetron HCl (Zofran) 4 mg PRN Q6HRS PRN IV NAUSEA/VOMITING; Start 05/30/18 at 07:00; Stop 05/30/18 at 15:00; Status DC Morphine Sulfate (Morphine Sulfate) 1 mg PRN Q10MIN PRN IV SEVERE PAIN Last administered on 05/30/18at 09:29; Start 05/30/18 at 07:00; Stop 05/30/18 at 15:00 ; Status DC Ringer's Solution 1,000 ml @ 30 mls/hr Q24H IV ; Start 05/30/18 at 07:00; Stop 05/30/18 at 11:36; Status DC Lidocaine HCl (Xylocaine-Mpf 1% 2ml Vial) 2 ml PRN 1X PRN ID PRIOR TO IV START ; Start 05/30/18 at 07:00; Stop 05/30/18 at 15:00; Status DC Hydromorphone HCl (Dilaudid) 0.5 mg PRN Q10MIN PRN IV SEV PAIN, Second choice; Start 05/30/18 at 07:00; Stop 05/30/18 at 15:00; Status DC Prochlorperazine Edisylate (Compazine) 5 mg PACU PRN PRN IV NAUSEA, MRX1; Start 05/30/18 at 07:00; Stop 05/30/18 at 15:00; Status DC Albuterol/ Ipratropium (Duoneb) 3 ml 1X ONCE NEB Last administered on at 07:10; Start 05/30/18 at 07:15; Stop 05/30/18 at 07:16; Status DC Fentanyl Citrate (Fentanyl 2ml Vial) 100 mcg STK-MED ONCE .ROUTE ; Start at 07:15; Stop 05/30/18 at 07:16; Status DC Ondansetron HCl (Zofran) 4 mg STK-MED ONCE .ROUTE ; Start 05/30/18 at 08:42; Stop 05/30/18 at 08:43; Status DC Propofol 20 ml @ As Directed STK-MED ONCE IV ; Start 05/30/18 at 08:43; Stop at 08:44; Status DC Lidocaine HCl (Lidocaine Pf 2% Vial) 5 ml STK-MED ONCE .ROUTE ; Start 05/30/18 at 08:43; Stop 05/30/18 at 08:44; Status DC Sevoflurane (Ultane) 30 ml STK-MED ONCE IH ; Start 05/30/18 at 08:44; Stop 05/30 at 08:45; Status DC Cefazolin Sodium/ Dextrose 50 ml @ 100 mls/hr Q8HRS IV ; Start 05/30/18 at 14: 00; Stop 05/30/18 at 14:00; Status DC Cefazolin Sodium 50 ml @ 100 mls/hr Q8HRS IV ; Start 05/30/18 at 14:00; Status UNV Cefazolin Sodium 1 gm/Dextrose 50 ml @ 100 mls/hr Q8HRS IV Last administered on 06/02/18at 05:50; Start 05/30/18 at 14:00 Warfarin Sodium (Coumadin Per Pharmacy) 1 each PRN DAILY PRN MC SEE COMMENTS Last administered on 06/01/18at 13:06; Start 05/31/18 at 14:15 Warfarin Sodium (Coumadin) 5 mg DAILY16 PO Last administered on 05/31/18at 16:54 ; Start 05/31/18 at 16:00; Stop 06/01/18 at 12:58; Status DC Albuterol/ Ipratropium (Duoneb) 3 ml QID NEB Last administered on 06/02/18at 11: 19; Start 05/31/18 at 20:00 Warfarin Sodium (Coumadin) 6 mg 1X WARF ONCE PO Last administered on at 17:47; Start 06/01/18 at 16:00; Stop 06/01/18 at 16:01; Status DC Iohexol (Omnipaque 300 Mg/ml) 60 ml 1X ONCE IV Last administered on 06/01/18at 22:03; Start 06/01/18 at 18:00; Stop 06/01/18 at 18:01; Status DC Metformin HCl (Glucophage) 1,000 mg BIDWMEALS PO ; Start 06/04/18 at 08:00 Info (CONTRAST GIVEN -- Rx MONITORING) 1 each PRN DAILY PRN MC SEE COMMENTS; Start 06/01/18 at 18:00; Stop 06/03/18 at 17:59 Azithromycin (Zithromax) 500 mg 1X ONCE PO Last administered on 06/02/18at 12: 18; Start 06/02/18 at 10:30; Stop 06/02/18 at 10:31; Status DC Azithromycin (Zithromax) 250 mg DAILY PO ; Start 06/03/18 at 09:00; Stop at 09:00 Active Scripts Active Reported Preparation H Ointment (Phenyleph/Mineral Oil/Petrolat) 28 Gm Oint.appl 28 Gm RC QID Muscle Rub Cream (Methyl Salicylate/Menthol) 113 Gm Cream..g. 1 Gm TP TID Proair Hfa Inhaler (Albuterol Sulfate) 8.5 Gm Hfa.aer.ad 1 Puff INH PRN Q6HRS PRN Zyrtec (Cetirizine Hcl) 10 Mg Tablet 1 Tab PO DAILY Atorvastatin Calcium 40 Mg Tablet 1 Tab PO QHS Metformin Hcl 1,000 Mg Tablet 1,000 Mg PO BIDWMEALS Gabapentin (Gabapentin) 300 Mg Capsule 300 Mg PO DAILY Gabapentin 600 Mg Tablet 600 Mg PO DAILY08 Flomax (Tamsulosin Hcl) 0.4 Mg Cap.er.24h 1 Cap PO DAILY Tylenol (Acetaminophen) 325 Mg Tablet 2 Tab PO TID PRN PRN Humulin R (Insulin Regular, Human) 100 Unit/1 Ml Vial 100 Unit IJ TIDAC Lisinopril 20 Mg Tablet 1 Tab PO DAILY Furosemide 20 Mg Tablet 1 Tab PO DAILY Coumadin (Warfarin Sodium) 4 Mg Tablet 1 Tab PO DAILY Actos (Pioglitazone Hcl) 45 Mg Tablet 1 Tab PO DAILY Novolin N (Nph, Human Insulin Isophane) 100 Unit/1 Ml Vial 20 Unit SQ BID Senna (Sennosides) 8.6 Mg Tablet 2 Mg PO BID Vitals/I & O Vital Sign - Last 24 Hours 06/01/18 06/01/18 06/01/18 06/01/18 15:00 15:19 19:22 19:25 Temp 97.6 97.6 Pulse 90 B/P (MAP) 135/61 (85) Pulse Ox 90 91 95 O2 Delivery Room Air Room Air Room Air Room Air 06/01/18 06/01/18 06/01/18 06/01/18 19:52 20:00 22:21 23:10 Temp 98.0 98.1 98.0 98.1 Pulse 88 82 Resp 16 16 B/P (MAP) 116/56 (76) 113/64 (80) Pulse Ox 95 92 O2 Delivery Room Air Room Air Room Air Room Air O2 Flow Rate 3.0 06/02/18 06/02/18 06/02/18 06/02/18 03:47 04:42 05:14 07:00 Temp 97.6 99.0 97.6 99.0 Pulse 82 78 Resp 16 18 B/P (MAP) 144/58 (86) 122/63 (82) Pulse Ox 92 96 O2 Delivery Room Air Room Air Room Air Room Air 06/02/18 06/02/18 06/02/18 06/02/18 07:44 08:00 08:57 11:20 Pulse 78 B/P (MAP) 122/63 Pulse Ox 92 92 O2 Delivery Room Air Room Air Room Air Intake and Output 06/01/18 06/01/18 06/02/18 15:00 23:00 07:00 Intake Total 500 ml 200 ml Output Total 800 ml 2575 ml 1300 ml Balance -300 ml -2575 ml -1100 ml SHAUN JOSE MD Jun 02, 2018 12:53
[2018-06-02 14:13] LABS: PROTHROMBIN TIME PATIENT 16.6 SEC (11.7-14.0)
[2018-06-02] MEDS: oxyCODONE/APAP 5/325 1 TAB TABLET PO PRN ×3 (14:28→23:26)
[2018-06-02 15:00] VITALS: BP 117/58
[2018-06-02] MEDS: ANTI-COAG MONITOR BY PHARMACY. MC PRN (15:48)
[2018-06-02] MEDS ORDERED: WARFARIN 7.5 MG TABLET. PO ONE (16:00)
[2018-06-02 19:30] VITALS: BP 142/66
[2018-06-02] MEDS: ATORVASTATIN CALCIUM 40 MG TABLET. PO SCH (21:27)
[2018-06-02 23:44] VITALS: BP 146/70
[2018-06-03] MEDS: HEPARIN 25,000UTS/500ML PREMIX 500 ML IV PRN (02:41)
[2018-06-03 03:18] VITALS: BP 136/62
[2018-06-03 04:03] LABS: BASO % 0 % (0-3); EOS # 0.1 x10^3/uL (0.0-0.7); EOS % 2 % (0-3); HEMATOCRIT 25.7 % (39.0-53.0); HEMOGLOBIN 8.1 g/dL (13.0-17.5); LYMPH # 3.1 x10^3/uL (1.0-4.8); LYMPH % 48 % (24-48); MEAN CORPUSCULAR HEMOGLOBIN 31 pg (25-35); MEAN CORPUSCULAR HGB CONC 32 g/dL (31-37); MEAN CORPUSCULAR VOLUME 99 fL (79-100); MONO # 0.5 x10^3/uL (0.0-1.1); MONO % 7 % (0-9); NEUT # 2.7 x10^3uL (1.8-7.7); NEUT % 43 % (31-73); PLATELET COUNT 149 x10^3/uL (140-400); RED CELL DISTRIBUTION WIDTH 18.1 % (11.5-14.5); WHITE BLOOD COUNT 6.4 x10^3/uL (4.0-11.0)
[2018-06-03 04:23] LABS: PROTHROMBIN TIME PATIENT 17.6 SEC (11.7-14.0)
[2018-06-03] MEDS: ceFAZolin SODIUM 1 GM in IV DEXTROSE 5% 50 ML IV SCH ×3 (05:07→21:02)
[2018-06-03] MEDS: fentaNYL PF VIAL 100 MCG/2 ML VIAL IV PRN ×3 (05:08→20:17)
[2018-06-03] MEDS: oxyCODONE/APAP 5/325 1 TAB TABLET PO PRN ×4 (05:08→19:55)
[2018-06-03 07:00] VITALS: BP 147/62
[2018-06-03] MEDS: IPRATRPIUM/ALBUTEROL 0.5/2.5MG 3 ML NEBU. NEB SCH ×4 (07:31→20:47)
[2018-06-03] MEDS: SENNOSIDES 8.6 MG TABLET PO SCH ×2 (08:13→19:55)
[2018-06-03] MEDS: MULTIVITAMIN with MINERAL TABLET. PO SCH (08:13)
[2018-06-03] MEDS: LISINOPRIL 20 MG TABLET PO SCH (08:13)
[2018-06-03] MEDS: CETIRIZINE HCL 10 MG TABLET. PO SCH (08:13)
[2018-06-03] MEDS: GABAPENTIN 300 MG CAPSULE. PO SCH ×2 (08:13→19:56)
[2018-06-03] MEDS: PIOGLITAZONE 15 MG TABLET. PO SCH (08:14)
[2018-06-03] MEDS: LACTOBACILLUS RHAMNOSUS GG 1 CAPSULE. PO SCH ×2 (08:14→19:56)
[2018-06-03] MEDS: ASCORBIC ACID 500 MG TABLET PO SCH (08:14)
[2018-06-03] MEDS: TAMSULOSIN 0.4 MG CAP.ER.24H. PO SCH (08:14)
[2018-06-03] MEDS: AZITHROMYCIN 250 MG TABLET. PO SCH (08:14)
[2018-06-03] MEDS: INSULIN GLARGINE 300 UNITS/3 ML INSULN.PEN. SQ SCH ×2 (08:27→20:01)
[2018-06-03] MEDS: INSULIN LISPRO 300 UNITS/3 ML INSULN.PEN. SQ SCH ×6 (08:28→17:44)
[2018-06-03] MEDS: BACITRACIN/POLYMYXIN B TOPICAL OINT 15GM TUBE. TP SCH ×3 (08:29→20:11)
--- NOTE | 2018-06-03 09:28 | PDOC ---
PULMONARY PROGRESS NOTES Subjective resolved hemoptysis no soa Vitals Vital Signs Date Time Temp Pulse Resp B/P (MAP) Pulse Ox O2 Delivery O2 Flow Rate FiO2 06/03/18 08:57 Room Air 06/03/18 08:17 94 3.0 06/03/18 08:13 82 147/62 06/03/18 07:00 98.5 18 98.5 ROS: No Increase Cough General: Alert, No acute distress Lungs: Clear Cardiovascular: S1 Abdomen: Soft, Other (obese) Neuro Exam: Alert Extremities: Other (cellulitis left leg) Labs Laboratory Tests Test 06/01/18 10:59 06/01/18 16:55 06/01/18 20:54 06/02/18 04:50 Glucose (Fingerstick) 238 mg/dL (70-99) 123 mg/dL (70-99) 124 mg/dL (70-99) Heparin Anti-Xa Act, Unfractionated 0.20 IU/mL (0.30-0.70) Test 06/02/18 07:28 06/02/18 11:49 06/02/18 13:45 06/02/18 16:57 Glucose (Fingerstick) 159 mg/dL (70-99) 258 mg/dL (70-99) 132 mg/dL (70-99) Prothrombin Time 16.6 SEC (11.7-14.0) Prothromb Time International Ratio 1.4 (0.8-1.1) Heparin Anti-Xa Act, Unfractionated 0.42 IU/mL (0.30-0.70) Test 06/02/18 19:38 06/02/18 21:30 06/03/18 03:25 06/03/18 07:30 Heparin Anti-Xa Act, Unfractionated 0.49 IU/mL (0.30-0.70) Glucose (Fingerstick) 195 mg/dL (70-99) 168 mg/dL (70-99) White Blood Count 6.4 x10^3/uL (4.0-11.0) Red Blood Count 2.60 x10^6/uL (4.30-5.70) Hemoglobin 8.1 g/dL (13.0-17.5) Hematocrit 25.7 % (39.0-53.0) Mean Corpuscular Volume 99 fL (79-100) Mean Corpuscular Hemoglobin 31 pg (25-35) Mean Corpuscular Hemoglobin Concent 32 g/dL (31-37) Red Cell Distribution Width 18.1 % (11.5-14.5) Platelet Count 149 x10^3/uL (140-400) Neutrophils (%) (Auto) 43 % (31-73) Lymphocytes (%) (Auto) 48 % (24-48) Monocytes (%) (Auto) 7 % (0-9) Eosinophils (%) (Auto) 2 % (0-3) Basophils (%) (Auto) 0 % (0-3) Neutrophils # (Auto) 2.7 x10^3uL (1.8-7.7) Lymphocytes # (Auto) 3.1 x10^3/uL (1.0-4.8) Monocytes # (Auto) 0.5 x10^3/uL (0.0-1.1) Eosinophils # (Auto) 0.1 x10^3/uL (0.0-0.7) Basophils # (Auto) 0.0 x10^3/uL (0.0-0.2) Prothrombin Time 17.6 SEC (11.7-14.0) Prothromb Time International Ratio 1.5 (0.8-1.1) Laboratory Tests Test 06/02/18 11:49 06/02/18 13:45 06/02/18 16:57 06/02/18 19:38 Glucose (Fingerstick) 258 mg/dL (70-99) 132 mg/dL (70-99) Prothrombin Time 16.6 SEC (11.7-14.0) Prothromb Time International Ratio 1.4 (0.8-1.1) Heparin Anti-Xa Act, Unfractionated 0.42 IU/mL (0.30-0.70) 0.49 IU/mL (0.30-0.70) Test 06/02/18 21:30 06/03/18 03:25 06/03/18 07:30 Glucose (Fingerstick) 195 mg/dL (70-99) 168 mg/dL (70-99) White Blood Count 6.4 x10^3/uL (4.0-11.0) Red Blood Count 2.60 x10^6/uL (4.30-5.70) Hemoglobin 8.1 g/dL (13.0-17.5) Hematocrit 25.7 % (39.0-53.0) Mean Corpuscular Volume 99 fL (79-100) Mean Corpuscular Hemoglobin 31 pg (25-35) Mean Corpuscular Hemoglobin Concent 32 g/dL (31-37) Red Cell Distribution Width 18.1 % (11.5-14.5) Platelet Count 149 x10^3/uL (140-400) Neutrophils (%) (Auto) 43 % (31-73) Lymphocytes (%) (Auto) 48 % (24-48) Monocytes (%) (Auto) 7 % (0-9) Eosinophils (%) (Auto) 2 % (0-3) Basophils (%) (Auto) 0 % (0-3) Neutrophils # (Auto) 2.7 x10^3uL (1.8-7.7) Lymphocytes # (Auto) 3.1 x10^3/uL (1.0-4.8) Monocytes # (Auto) 0.5 x10^3/uL (0.0-1.1) Eosinophils # (Auto) 0.1 x10^3/uL (0.0-0.7) Basophils # (Auto) 0.0 x10^3/uL (0.0-0.2) Prothrombin Time 17.6 SEC (11.7-14.0) Prothromb Time International Ratio 1.5 (0.8-1.1) Medications Active Scripts Medications Dose Route/Sig Max Daily Dose Days Date Category Preparation H Ointment (Phenyleph/Mineral Oil/Petrolat) 28 Gm Oint.appl 28 Gm RC QID 05/25/18 Reported Muscle Rub Cream (Methyl Salicylate/Menthol) 113 Gm Cream..g. 1 Gm TP TID 05/25/18 Reported Proair Hfa Inhaler (Albuterol Sulfate) 8.5 Gm Hfa.aer.ad 1 Puff INH PRN Q6HRS PRN 05/25/18 Reported Zyrtec (Cetirizine Hcl) 10 Mg Tablet 1 Tab PO DAILY 05/25/18 Reported Atorvastatin Calcium 40 Mg Tablet 1 Tab PO QHS 05/25/18 Reported Metformin Hcl 1,000 Mg Tablet 1,000 Mg PO BIDWMEALS 05/25/18 Reported Gabapentin (Gabapentin) 300 Mg Capsule 300 Mg PO DAILY 05/25/18 Reported Gabapentin 600 Mg Tablet 600 Mg PO DAILY08 05/25/18 Reported Flomax (Tamsulosin Hcl) 0.4 Mg Cap.er.24h 1 Cap PO DAILY 05/25/18 Reported Tylenol (Acetaminophen) 325 Mg Tablet 2 Tab PO TID PRN PRN 05/25/18 Reported Humulin R (Insulin Regular, Human) 100 Unit/1 Ml Vial 100 Unit IJ TIDAC 05/25/18 Reported Lisinopril 20 Mg Tablet 1 Tab PO DAILY 05/25/18 Reported Furosemide 20 Mg Tablet 1 Tab PO DAILY 05/25/18 Reported Coumadin (Warfarin Sodium) 4 Mg Tablet 1 Tab PO DAILY 05/25/18 Reported Actos (Pioglitazone Hcl) 45 Mg Tablet 1 Tab PO DAILY 05/25/18 Reported Novolin N (Nph, Human Insulin Isophane) 100 Unit/1 Ml Vial 20 Unit SQ BID 05/25/18 Reported Senna (Sennosides) 8.6 Mg Tablet 2 Mg PO BID 05/25/18 Reported Impression . 1. Multiple metastatic nodules in the lungs, likely related to underlying renal cell cancer with lung metastasis. He underwent right nephrectomy in 2011 for renal cancer. He was on oral Sutent from 2011 which was stopped last month due to progression of cancer. At this point, I do not see a need for any further biopsy and will leave it to Oncology about any further treatment. 2. History of chronic deep venous thrombosis since 1988. His venous Dopplers showing persistent deep venous thrombus in 2017 as well as from 02/2018. He will need lifelong anticoagulation. He likely has hypercoagulable state secondary to underlying malignancy. 3. Left lower extremity cellulitis, status post wound infection and wound VAC. Vascular Surgery following. 4. No significant history of tobacco use. 5. Hemoptysis, likely related to lung metastasis; however, lower respiratory tract infection/pneumonia is also another possibility since he has some yellow sputum production as well. At this time, I would broaden the antibiotics and add gram-negative coverage. 6. Anemia, needs to be closely followed up. Plan . 1. Continue with present heparin until INR is therapeutic. I would continue with Coumadin per pharmacy. 2. Needs to monitor hemoglobin closely and if it continues to fall, then he may be a candidate for IVC filter. 3. We will leave up to oncology regarding any further chemo options for his metastasis in the lungs. 4. He may need Radiation Oncology consult as well regarding right posterior ninth rib large metastatic lesion and for pain control. 5. Added gram-negative coverage with Zithromax. 6. Follow Vascular Surgery's input. 7. Follow Oncology's recommendation. YE ALFARO MD Jun 03, 2018 09:28
--- NOTE | 2018-06-03 10:26 | PDOC ---
Infectious Disease Note Subjective Subjective Feeling alright, but tired Pain controlled No fevers ROS ROS per HPI Vital Sign Vital Signs Vital Signs Date Time Temp Pulse Resp B/P (MAP) Pulse Ox O2 Delivery O2 Flow Rate FiO2 06/03/18 08:57 Room Air 06/03/18 08:17 94 3.0 06/03/18 08:13 82 147/62 06/03/18 07:00 98.5 18 98.5 Physical Exam PHYSICAL EXAM GENERAL: Propped up in bed, sleepy HEENT: Oral cavity, pharynx pink and moist. cluster herpetic-type lesions about the mouth/nares - dry/clearing NECK: Supple. LUNGS: Clear to auscultation. HEART: S1 and S2. ABDOMEN: Obese, soft and nontender with bowel sounds present. EXTREMITIES: Less LLE edema, wound vac in place + warmth and localized redness. SKIN: without rash NEUROLOGIC: Sleepy, responds appropriately Labs Lab Laboratory Tests Test 06/02/18 11:49 06/02/18 13:45 06/02/18 16:57 06/02/18 19:38 Glucose (Fingerstick) 258 mg/dL (70-99) 132 mg/dL (70-99) Prothrombin Time 16.6 SEC (11.7-14.0) Prothromb Time International Ratio 1.4 (0.8-1.1) Heparin Anti-Xa Act, Unfractionated 0.42 IU/mL (0.30-0.70) 0.49 IU/mL (0.30-0.70) Test 06/02/18 21:30 06/03/18 03:25 06/03/18 07:30 Glucose (Fingerstick) 195 mg/dL (70-99) 168 mg/dL (70-99) White Blood Count 6.4 x10^3/uL (4.0-11.0) Red Blood Count 2.60 x10^6/uL (4.30-5.70) Hemoglobin 8.1 g/dL (13.0-17.5) Hematocrit 25.7 % (39.0-53.0) Mean Corpuscular Volume 99 fL (79-100) Mean Corpuscular Hemoglobin 31 pg (25-35) Mean Corpuscular Hemoglobin Concent 32 g/dL (31-37) Red Cell Distribution Width 18.1 % (11.5-14.5) Platelet Count 149 x10^3/uL (140-400) Neutrophils (%) (Auto) 43 % (31-73) Lymphocytes (%) (Auto) 48 % (24-48) Monocytes (%) (Auto) 7 % (0-9) Eosinophils (%) (Auto) 2 % (0-3) Basophils (%) (Auto) 0 % (0-3) Neutrophils # (Auto) 2.7 x10^3uL (1.8-7.7) Lymphocytes # (Auto) 3.1 x10^3/uL (1.0-4.8) Monocytes # (Auto) 0.5 x10^3/uL (0.0-1.1) Eosinophils # (Auto) 0.1 x10^3/uL (0.0-0.7) Basophils # (Auto) 0.0 x10^3/uL (0.0-0.2) Prothrombin Time 17.6 SEC (11.7-14.0) Prothromb Time International Ratio 1.5 (0.8-1.1) Micro Objective Assessment Cellulitis of left lower extremity,,improving Nonhealing wounds of LLE since 2017,, now with eschar. s/p I and D taken down to fascia on 05/30/18. MSSA -h/o MRSA and enterococcus penicillin sensitive -followed weekly by [facility] wound care center Fever,,better Diabetes with peripheral neuropathy PVD h/o DVT on warfarin therapy h/o kidney cancer with mets to lung -followed by Dr. Tomlinson in [place], was on Sutent per patient -CT chest:Innumerable bilateral lung masses, right adrenal mass: expansile right posterior ninth rib mass. Solitary kidney Incarceration MRSA screen positive Plan Plan of Care Continue cefazolin,,, soon to change to po keflex for d/c Azithromycin added per pulmonary Probiotics wound vac BC neg wound culture MSSA Patient seen, examined, I agree with above. Assessment and plan was formulated with [employer]. LEONOR RAMAN APRN Jun 03, 2018 10:26 MARCELLE MARSHALL MD Jun 03, 2018 15:42
--- NOTE | 2018-06-03 11:43 | PDOC ---
PROGRESS NOTES Chief Complaint Chief Complaint 1. marked complicated acute cellulitis left lower leg, indwelling left wound VAC 2. diabetes 2, mod control 3. hypertension 4. leg wound with cellullitis in DM2 5. OBESITY, BMI 38 6. [employer] prisoner low security 7. mod protein, caloric malnutrition 8. 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 ThromboCytopenia, platelets 136 11. INmate History of Present Illness History of Present Illness He has no complaints Indwelling left wound VAC with remarkable postinflammatory hyperpigmentation and also some erythema on the left leg He came from home Barely could walk because of the significant left lower leg cellulitis He has multiple lung nodules, likely metastases from renal carcinoma He already has full follow-up with [facility] oncologist so we are not reinventing the wheel Urine culture blood culture negative Hemoglobin 8, WBC 4, platelets 136 with no bleeding Plan: continue heparin drip for now-multiple history DVT with multiple lung nodules likely mets We'll transition to WARF once off heparin drip. inr TODAY IS 1.5 Needs wait for social work Monday about wound care wound VAC in care home Monitor that thrombocytopenia especially patient on heparin drip Follow cultures, IV antibiotics per ID Vitals Vitals Vital Signs Date Time Temp Pulse Resp B/P (MAP) Pulse Ox O2 Delivery O2 Flow Rate FiO2 06/03/18 11:31 95 Room Air 06/03/18 08:17 3.0 06/03/18 08:13 82 147/62 06/03/18 07:00 98.5 18 98.5 Physical Exam Physical Exam GENERAL: Propped up in bed, sleepy HEENT: Oral cavity, pharynx pink and moist. cluster herpetic-type lesions about the mouth/nares - dry/clearing NECK: Supple. LUNGS: Clear to auscultation. HEART: S1 and S2. ABDOMEN: Obese, soft and nontender with bowel sounds present. EXTREMITIES: Less LLE edema, wound vac in place + warmth and localized redness. SKIN: without rash NEUROLOGIC: Sleepy, responds appropriately General: Alert, Oriented X3, Cooperative Heart: Regular rate Lungs: Clear Abdomen: Normal bowel sounds, No hepatosplenomegaly, Other (obese) Extremities: No clubbing, No cyanosis, No edema, Other (has wound vac left lee ) Skin: Other (as above, also almost petechial like rase right cheek which he says was due to med reaction) Labs LABS Laboratory Tests Test 06/02/18 11:49 06/02/18 13:45 06/02/18 16:57 06/02/18 19:38 Glucose (Fingerstick) 258 mg/dL (70-99) 132 mg/dL (70-99) Prothrombin Time 16.6 SEC (11.7-14.0) Prothromb Time International Ratio 1.4 (0.8-1.1) Heparin Anti-Xa Act, Unfractionated 0.42 IU/mL (0.30-0.70) 0.49 IU/mL (0.30-0.70) Test 06/02/18 21:30 06/03/18 03:25 06/03/18 07:30 06/03/18 10:09 Glucose (Fingerstick) 195 mg/dL (70-99) 168 mg/dL (70-99) White Blood Count 6.4 x10^3/uL (4.0-11.0) Red Blood Count 2.60 x10^6/uL (4.30-5.70) Hemoglobin 8.1 g/dL (13.0-17.5) Hematocrit 25.7 % (39.0-53.0) Mean Corpuscular Volume 99 fL (79-100) Mean Corpuscular Hemoglobin 31 pg (25-35) Mean Corpuscular Hemoglobin Concent 32 g/dL (31-37) Red Cell Distribution Width 18.1 % (11.5-14.5) Platelet Count 149 x10^3/uL (140-400) Neutrophils (%) (Auto) 43 % (31-73) Lymphocytes (%) (Auto) 48 % (24-48) Monocytes (%) (Auto) 7 % (0-9) Eosinophils (%) (Auto) 2 % (0-3) Basophils (%) (Auto) 0 % (0-3) Neutrophils # (Auto) 2.7 x10^3uL (1.8-7.7) Lymphocytes # (Auto) 3.1 x10^3/uL (1.0-4.8) Monocytes # (Auto) 0.5 x10^3/uL (0.0-1.1) Eosinophils # (Auto) 0.1 x10^3/uL (0.0-0.7) Basophils # (Auto) 0.0 x10^3/uL (0.0-0.2) Prothrombin Time 17.6 SEC (11.7-14.0) Prothromb Time International Ratio 1.5 (0.8-1.1) Heparin Anti-Xa Act, Unfractionated 0.80 IU/mL (0.30-0.70) Review of Systems Review of Systems Asleep I did not awaken Comment Review of Relevant I have reviewed the following items anjana (where applicable) has been applied. Labs Laboratory Tests Test 06/01/18 16:55 06/01/18 20:54 06/02/18 04:50 06/02/18 07:28 Glucose (Fingerstick) 123 mg/dL (70-99) 124 mg/dL (70-99) 159 mg/dL (70-99) Heparin Anti-Xa Act, Unfractionated 0.20 IU/mL (0.30-0.70) Test 06/02/18 11:49 06/02/18 13:45 06/02/18 16:57 06/02/18 19:38 Glucose (Fingerstick) 258 mg/dL (70-99) 132 mg/dL (70-99) Prothrombin Time 16.6 SEC (11.7-14.0) Prothromb Time International Ratio 1.4 (0.8-1.1) Heparin Anti-Xa Act, Unfractionated 0.42 IU/mL (0.30-0.70) 0.49 IU/mL (0.30-0.70) Test 06/02/18 21:30 06/03/18 03:25 06/03/18 07:30 06/03/18 10:09 Glucose (Fingerstick) 195 mg/dL (70-99) 168 mg/dL (70-99) White Blood Count 6.4 x10^3/uL (4.0-11.0) Red Blood Count 2.60 x10^6/uL (4.30-5.70) Hemoglobin 8.1 g/dL (13.0-17.5) Hematocrit 25.7 % (39.0-53.0) Mean Corpuscular Volume 99 fL (79-100) Mean Corpuscular Hemoglobin 31 pg (25-35) Mean Corpuscular Hemoglobin Concent 32 g/dL (31-37) Red Cell Distribution Width 18.1 % (11.5-14.5) Platelet Count 149 x10^3/uL (140-400) Neutrophils (%) (Auto) 43 % (31-73) Lymphocytes (%) (Auto) 48 % (24-48) Monocytes (%) (Auto) 7 % (0-9) Eosinophils (%) (Auto) 2 % (0-3) Basophils (%) (Auto) 0 % (0-3) Neutrophils # (Auto) 2.7 x10^3uL (1.8-7.7) Lymphocytes # (Auto) 3.1 x10^3/uL (1.0-4.8) Monocytes # (Auto) 0.5 x10^3/uL (0.0-1.1) Eosinophils # (Auto) 0.1 x10^3/uL (0.0-0.7) Basophils # (Auto) 0.0 x10^3/uL (0.0-0.2) Prothrombin Time 17.6 SEC (11.7-14.0) Prothromb Time International Ratio 1.5 (0.8-1.1) Heparin Anti-Xa Act, Unfractionated 0.80 IU/mL (0.30-0.70) Laboratory Tests Test 06/02/18 11:49 06/02/18 13:45 06/02/18 16:57 06/02/18 19:38 Glucose (Fingerstick) 258 mg/dL (70-99) 132 mg/dL (70-99) Prothrombin Time 16.6 SEC (11.7-14.0) Prothromb Time International Ratio 1.4 (0.8-1.1) Heparin Anti-Xa Act, Unfractionated 0.42 IU/mL (0.30-0.70) 0.49 IU/mL (0.30-0.70) Test 06/02/18 21:30 06/03/18 03:25 06/03/18 07:30 06/03/18 10:09 Glucose (Fingerstick) 195 mg/dL (70-99) 168 mg/dL (70-99) White Blood Count 6.4 x10^3/uL (4.0-11.0) Red Blood Count 2.60 x10^6/uL (4.30-5.70) Hemoglobin 8.1 g/dL (13.0-17.5) Hematocrit 25.7 % (39.0-53.0) Mean Corpuscular Volume 99 fL (79-100) Mean Corpuscular Hemoglobin 31 pg (25-35) Mean Corpuscular Hemoglobin Concent 32 g/dL (31-37) Red Cell Distribution Width 18.1 % (11.5-14.5) Platelet Count 149 x10^3/uL (140-400) Neutrophils (%) (Auto) 43 % (31-73) Lymphocytes (%) (Auto) 48 % (24-48) Monocytes (%) (Auto) 7 % (0-9) Eosinophils (%) (Auto) 2 % (0-3) Basophils (%) (Auto) 0 % (0-3) Neutrophils # (Auto) 2.7 x10^3uL (1.8-7.7) Lymphocytes # (Auto) 3.1 x10^3/uL (1.0-4.8) Monocytes # (Auto) 0.5 x10^3/uL (0.0-1.1) Eosinophils # (Auto) 0.1 x10^3/uL (0.0-0.7) Basophils # (Auto) 0.0 x10^3/uL (0.0-0.2) Prothrombin Time 17.6 SEC (11.7-14.0) Prothromb Time International Ratio 1.5 (0.8-1.1) Heparin Anti-Xa Act, Unfractionated 0.80 IU/mL (0.30-0.70) Microbiology 05/25/18 Blood Culture - Final, Complete NO GROWTH AFTER 5 DAYS 05/26/18 Urine Culture - Final, Complete 05/26/18 Urine Culture Result 1 (LUCY) - Final, Complete 05/26/18 Anaerobic/Aerobic Culture - Final, Complete 05/26/18 Anaerobic Culture Result 1 (LUCY) - Final, Complete 05/26/18 Aerobic Culture - Final, Complete 05/26/18 Aerobic Culture Result 1 (LUCY) - Final, Complete 05/26/18 Antimicrobic Susceptibility - Final, Complete 05/26/18 Gram Stain - Final, Complete 05/26/18 Gram Stain Result 1 (LUCY) - Final, Complete 05/26/18 Gram Stain Result 2 (LUCY) - Final, Complete Medications Current Medications Sodium Chloride 1,000 ml @ 100 mls/hr Q10H IV Last administered on 06/02/18at 05:50; Start 05/25/18 at 17:54; Stop 06/02/18 at 12:54; Status DC Ondansetron HCl (Zofran) 4 mg PRN Q4HRS PRN IV NAUSEA/VOMITING; Start 05/25/18 at 18:00 Zolpidem Tartrate (Ambien) 5 mg PRN QHS PRN PO INSOMNIA; Start 05/25/18 at 18: 00 Acetaminophen (Tylenol) 650 mg PRN Q4HRS PRN PO TEMP OVER 100.4F OR MILD PAIN Last administered on 05/26/18at 22:46; Start 05/25/18 at 18:00 Al Hydroxide/Mg Hydroxide (Mylanta Plus Xs) 30 ml PRN DAILY PRN PO HEARTBURN / GAS Last administered on 05/27/18at 17:49; Start 05/25/18 at 18:00 Clonidine HCl (Catapres) 0.1 mg PRN Q6HRS PRN PO SBP>160 OR DBP>90; Start 05/25 at 18:00 Diphenhydramine HCl (Benadryl) 25 mg PRN Q4HRS PRN IVP ITCHING; Start 05/25/18 at 18:00 Docusate Sodium (Colace) 100 mg PRN BID PRN PO CONSTIPATION; Start 05/25/18 at 18:00 Albuterol/ Ipratropium (Duoneb) 3 ml Q4HRS NEB Last administered on 05/31/18at 16:05; Start 05/25/18 at 20:00; Stop 05/31/18 at 18:30; Status DC Guaifenesin (Robitussin) 200 mg PRN Q4HRS PRN PO COUGH; Start 05/25/18 at 18:00 Lorazepam (Ativan) 0.5 mg PRN Q4HRS PRN PO ANXIETY / AGITATION Last administered on 05/26/18at 04:30; Start 05/25/18 at 18:00 Enoxaparin Sodium (Lovenox 40mg Syringe) 40 mg DAILY SQ Last administered on at 09:39; Start 05/26/18 at 09:00; Stop 05/26/18 at 16:30; Status DC Piperacillin Sod/ Tazobactam Sod 3.375 gm/Sodium Chloride 50 ml @ 100 mls/hr Q6HRS IV Last administered on 05/30/18 06:06; Start 05/25/18 at 18:10; Stop at 11:12; Status DC Acetaminophen (Tylenol) 650 mg TID PRN PRN PO PAIN; Start 05/25/18 at 18:15; Status UNV Furosemide (Lasix) 20 mg DAILY PO ; Start 05/26/18 at 09:00; Stop 05/27/18 at 13 :28; Status DC Lisinopril (Prinivil) 20 mg DAILY PO Last administered on 06/03/18at 08:13; Start 05/26/18 at 09:00 Insulin Glargine (Lantus) 20 units BID SQ Last administered on 06/03/18 08:27 ; Start 05/25/18 at 21:00 Pioglitazone HCl (Actos) 45 mg DAILY PO Last administered on 06/03/18 08:14; Start 05/26/18 at 09:00 Sennosides (Senna) 17.2 mg BID PO Last administered on 06/03/18 08:13; Start 05/25/18 at 21:00 Warfarin Sodium (Coumadin) 4 mg DAILY16 PO Last administered on 05/26/18 18:06 ; Start 05/25/18 at 21:00; Stop 05/27/18 at 11:16; Status DC Piperacillin Sod/ Tazobactam Sod 3.375 gm/Sodium Chloride 50 ml @ 100 mls/hr Q6HRS IV ; Start 05/26/18 at 00:00; Status UNV Vancomycin HCl (Vanco Per Pharmacy) 1 each PRN DAILY PRN MC SEE COMMENTS Last administered on 05/26/18 16:08; Start 05/25/18 at 18:45; Stop 05/26/18 at 18:24 ; Status DC Vancomycin HCl 2 gm/Sodium Chloride 500 ml @ 250 mls/hr 1X ONCE IV Last administered on 05/25/18at 22:34; Start 05/25/18 at 19:00; Stop 05/25/18 at 20:59 ; Status DC Warfarin Sodium (Coumadin Per Physician) 1 each PRN DAILY PRN MC SEE COMMENTS Last administered on 05/26/18at 16:15; Start 05/25/18 at 20:45; Stop 05/27/18 at 11:16; Status DC Vancomycin HCl 1.5 gm/Sodium Chloride 500 ml @ 250 mls/hr Q12H IV Last administered on 05/26/18at 09:39; Start 05/26/18 at 09:00; Stop 05/26/18 at 18:24 ; Status DC Vancomycin HCl (Vancomycin Trough Level) 1 each 1X ONCE MC ; Start 05/27/18 at 08:30; Stop 05/27/18 at 08:30; Status DC Fentanyl Citrate (Fentanyl 2ml Vial) 50 mcg PRN Q3HRS PRN IV MODERATE TO SEVERE PAIN Last administered on 06/03/18 08:17; Start 05/25/18 at 22:00 Albuterol Sulfate (Ventolin Neb Soln) 2.5 mg PRN Q6HRS PRN INH SHORTNESS OF BREATH; Start 05/26/18 at 10:15 Allopurinol (Zyloprim) 200 mg DAILY PO ; Start 05/26/18 at 11:00; Stop 05/26/18 at 16:09; Status DC Atorvastatin Calcium (Lipitor) 40 mg QHS PO Last administered on 06/02/18at 21: 27; Start 05/26/18 at 21:00 Cetirizine HCl (ZyrTEC) 10 mg DAILY PO Last administered on 06/03/18 08:13; Start 05/26/18 at 10:30 Tamsulosin HCl (Flomax) 0.4 mg DAILY PO Last administered on 06/03/18 08:14; Start 05/26/18 at 10:30 Gabapentin (Neurontin) 600 mg BID PO Last administered on 05/27/18 08:10; Start 05/26/18 at 10:15; Stop 05/27/18 at 13:29; Status DC Insulin Human Lispro (HumaLOG) 4 units TIDWMEALS SQ Last administered on 08:28; Start 05/26/18 at 17:00 Insulin Human Lispro (HumaLOG) 0-7 UNITS TIDWMEALS SQ Last administered on 06/03 08:29; Start 05/26/18 at 17:00 Dextrose (Dextrose 50%-Water Syringe) 12.5 gm PRN Q15MIN PRN IV SEE COMMENTS; Start 05/26/18 at 13:00 Metformin HCl (Glucophage) 1,000 mg BIDWMEALS PO Last administered on 16:59; Start 05/26/18 at 17:00; Stop 06/01/18 at 17:54; Status DC Linezolid/Dextrose 300 ml @ 300 mls/hr Q12HR IV Last administered on 11:04; Start 05/26/18 at 21:00; Stop 05/30/18 at 11:12; Status DC Heparin Sodium/ Dextrose 500 ml @ 0 mls/hr CONT PRN IV SEE I/O RECORD Last administered on 06/03/18 02:41; Start 05/28/18 at 09:00 Heparin Sodium (Porcine) (Heparin Sodium) 3,400 unit PRN Q6HRS PRN IV FOR UFH LEVEL LESS THAN 0.2; Start 05/28/18 at 09:00 Heparin Sodium (Porcine) (Heparin Sodium) 1,700 unit PRN Q6HRS PRN IV FOR UFH LEVEL 0.2 - 0.29 Last administered on 06/02/18 06:17; Start 05/28/18 at 09:00; Stop 06/02/18 at 12:54; Status DC Info (Anti-Coagulation Monitoring By Pharmacy) 1 each PRN DAILY PRN MC SEE COMMENTS Last administered on 06/02/18at 15:48; Start 05/27/18 at 11:30 Lactobacillus Rhamnosus (Culturelle) 1 cap BID PO Last administered on 08:14; Start 05/27/18 at 21:00 Bacitracin/ Polymyxin B Sulfate (Polysporin) 1 ana TID TP Last administered on 06/03/18 08:29; Start 05/27/18 at 14:00 Gabapentin (Neurontin) 600 mg DAILY08 PO Last administered on 06/03/18 08:13; Start 05/28/18 at 08:00 Gabapentin (Neurontin) 900 mg HS PO Last administered on 06/02/18 21:26; Start 05/27/18 at 21:00 Oxycodone/ Acetaminophen (Percocet 5/325) 1 tab PRN Q4HRS PRN PO MODERATE TO SEVERE PAIN Last administered on 06/03/18at 10:27; Start 05/27/18 at 14:30 Multivitamins (Thera M Plus) 1 tab DAILY PO Last administered on 06/03/18at 08: 13; Start 05/28/18 at 17:00 Ascorbic Acid (Vitamin C) 500 mg DAILY PO Last administered on 06/03/18at 08:14 ; Start 05/28/18 at 17:00 Ondansetron HCl (Zofran) 4 mg PRN Q6HRS PRN IV NAUSEA/VOMITING; Start 05/30/18 at 07:00; Stop 05/30/18 at 15:00; Status DC Morphine Sulfate (Morphine Sulfate) 1 mg PRN Q10MIN PRN IV SEVERE PAIN Last administered on 05/30/18at 09:29; Start 05/30/18 at 07:00; Stop 05/30/18 at 15:00 ; Status DC Ringer's Solution 1,000 ml @ 30 mls/hr Q24H IV ; Start 05/30/18 at 07:00; Stop 05/30/18 at 11:36; Status DC Lidocaine HCl (Xylocaine-Mpf 1% 2ml Vial) 2 ml PRN 1X PRN ID PRIOR TO IV START ; Start 05/30/18 at 07:00; Stop 05/30/18 at 15:00; Status DC Hydromorphone HCl (Dilaudid) 0.5 mg PRN Q10MIN PRN IV SEV PAIN, Second choice; Start 05/30/18 at 07:00; Stop 05/30/18 at 15:00; Status DC Prochlorperazine Edisylate (Compazine) 5 mg PACU PRN PRN IV NAUSEA, MRX1; Start 05/30/18 at 07:00; Stop 05/30/18 at 15:00; Status DC Albuterol/ Ipratropium (Duoneb) 3 ml 1X ONCE NEB Last administered on at 07:10; Start 05/30/18 at 07:15; Stop 05/30/18 at 07:16; Status DC Fentanyl Citrate (Fentanyl 2ml Vial) 100 mcg STK-MED ONCE .ROUTE ; Start at 07:15; Stop 05/30/18 at 07:16; Status DC Ondansetron HCl (Zofran) 4 mg STK-MED ONCE .ROUTE ; Start 05/30/18 at 08:42; Stop 05/30/18 at 08:43; Status DC Propofol 20 ml @ As Directed STK-MED ONCE IV ; Start 05/30/18 at 08:43; Stop at 08:44; Status DC Lidocaine HCl (Lidocaine Pf 2% Vial) 5 ml STK-MED ONCE .ROUTE ; Start 05/30/18 at 08:43; Stop 05/30/18 at 08:44; Status DC Sevoflurane (Ultane) 30 ml STK-MED ONCE IH ; Start 05/30/18 at 08:44; Stop 05/30 at 08:45; Status DC Cefazolin Sodium/ Dextrose 50 ml @ 100 mls/hr Q8HRS IV ; Start 05/30/18 at 14: 00; Stop 05/30/18 at 14:00; Status DC Cefazolin Sodium 50 ml @ 100 mls/hr Q8HRS IV ; Start 05/30/18 at 14:00; Status UNV Cefazolin Sodium 1 gm/Dextrose 50 ml @ 100 mls/hr Q8HRS IV Last administered on 06/03/18at 05:07; Start 05/30/18 at 14:00 Warfarin Sodium (Coumadin Per Pharmacy) 1 each PRN DAILY PRN MC SEE COMMENTS Last administered on 06/02/18at 15:49; Start 05/31/18 at 14:15 Warfarin Sodium (Coumadin) 5 mg DAILY16 PO Last administered on 05/31/18at 16:54 ; Start 05/31/18 at 16:00; Stop 06/01/18 at 12:58; Status DC Albuterol/ Ipratropium (Duoneb) 3 ml QID NEB Last administered on 06/03/18at 11: 30; Start 05/31/18 at 20:00 Warfarin Sodium (Coumadin) 6 mg 1X WARF ONCE PO Last administered on at 17:47; Start 06/01/18 at 16:00; Stop 06/01/18 at 16:01; Status DC Iohexol (Omnipaque 300 Mg/ml) 60 ml 1X ONCE IV Last administered on 06/01/18at 22:03; Start 06/01/18 at 18:00; Stop 06/01/18 at 18:01; Status DC Metformin HCl (Glucophage) 1,000 mg BIDWMEALS PO ; Start 06/04/18 at 08:00 Info (CONTRAST GIVEN -- Rx MONITORING) 1 each PRN DAILY PRN MC SEE COMMENTS; Start 06/01/18 at 18:00; Stop 06/03/18 at 17:59 Azithromycin (Zithromax) 500 mg 1X ONCE PO Last administered on 06/02/18at 12: 18; Start 06/02/18 at 10:30; Stop 06/02/18 at 10:31; Status DC Azithromycin (Zithromax) 250 mg DAILY PO Last administered on 06/03/18at 08:14; Start 06/03/18 at 09:00; Stop 06/07/18 at 09:00 Warfarin Sodium (Coumadin) 7.5 mg 1X WARF ONCE PO Last administered on at 15:59; Start 06/02/18 at 16:00; Stop 06/02/18 at 16:01; Status DC Active Scripts Active Reported Preparation H Ointment (Phenyleph/Mineral Oil/Petrolat) 28 Gm Oint.appl 28 Gm RC QID Muscle Rub Cream (Methyl Salicylate/Menthol) 113 Gm Cream..g. 1 Gm TP TID Proair Hfa Inhaler (Albuterol Sulfate) 8.5 Gm Hfa.aer.ad 1 Puff INH PRN Q6HRS PRN Zyrtec (Cetirizine Hcl) 10 Mg Tablet 1 Tab PO DAILY Atorvastatin Calcium 40 Mg Tablet 1 Tab PO QHS Metformin Hcl 1,000 Mg Tablet 1,000 Mg PO BIDWMEALS Gabapentin (Gabapentin) 300 Mg Capsule 300 Mg PO DAILY Gabapentin 600 Mg Tablet 600 Mg PO DAILY08 Flomax (Tamsulosin Hcl) 0.4 Mg Cap.er.24h 1 Cap PO DAILY Tylenol (Acetaminophen) 325 Mg Tablet 2 Tab PO TID PRN PRN Humulin R (Insulin Regular, Human) 100 Unit/1 Ml Vial 100 Unit IJ TIDAC Lisinopril 20 Mg Tablet 1 Tab PO DAILY Furosemide 20 Mg Tablet 1 Tab PO DAILY Coumadin (Warfarin Sodium) 4 Mg Tablet 1 Tab PO DAILY Actos (Pioglitazone Hcl) 45 Mg Tablet 1 Tab PO DAILY Novolin N (Nph, Human Insulin Isophane) 100 Unit/1 Ml Vial 20 Unit SQ BID Senna (Sennosides) 8.6 Mg Tablet 2 Mg PO BID Vitals/I & O Vital Sign - Last 24 Hours 06/02/18 06/02/18 06/02/18 06/02/18 14:28 14:28 15:00 15:51 Temp 98.1 98.1 Pulse 81 Resp 18 B/P (MAP) 117/58 (77) Pulse Ox 92 92 97 O2 Delivery Room Air Room Air Room Air Room Air O2 Flow Rate 3.0 3.0 06/02/18 06/02/18 06/02/18 06/02/18 16:03 16:04 19:23 19:24 Pulse Ox 97 97 O2 Delivery Room Air Room Air O2 Flow Rate 3.0 3.0 06/02/18 06/02/18 06/02/18 06/02/18 19:30 20:00 20:19 23:26 Temp 98.8 98.8 Pulse 83 Resp 18 B/P (MAP) 142/66 (91) Pulse Ox 96 98 O2 Delivery Room Air Room Air Room Air Room Air 06/02/18 06/02/18 06/03/18 06/03/18 23:26 23:44 03:18 05:08 Temp 98.6 98.6 98.6 98.6 Pulse 82 76 Resp 18 18 B/P (MAP) 146/70 (95) 136/62 (86) Pulse Ox 95 92 O2 Delivery Room Air Room Air Room Air Room Air 06/03/18 06/03/18 06/03/18 06/03/18 05:08 07:00 07:31 08:00 Temp 98.5 98.5 Pulse 82 Resp 18 B/P (MAP) 147/62 (90) Pulse Ox 97 94 O2 Delivery Room Air Room Air Room Air Room Air O2 Flow Rate 3.0 06/03/18 06/03/18 06/03/18 06/03/18 08:13 08:17 08:57 10:27 Pulse 82 B/P (MAP) 147/62 Pulse Ox 94 O2 Delivery Room Air Room Air Room Air O2 Flow Rate 3.0 06/03/18 06/03/18 11:28 11:31 Pulse Ox 95 O2 Delivery Room Air Room Air Intake and Output 06/02/18 06/02/18 06/03/18 15:00 23:00 07:00 Intake Total 480 ml 240 ml 450 ml Output Total 850 ml 2575 ml 1800 ml Balance -370 ml -2335 ml -1350 ml SHAUN JOSE MD Jun 03, 2018 11:43
[2018-06-03] MEDS: ANTI-COAG MONITOR BY PHARMACY. MC PRN (12:43)
--- NOTE | 2018-06-03 12:56 | NUR ---
Reviewed heparin drip protocol with Maggie in pharmacy. Rate will be decreased to 43.3 and labs rechecked in 6 hours.
[2018-06-03 15:00] VITALS: BP 136/56
[2018-06-03] MEDS ORDERED: WARFARIN 7.5 MG TABLET. PO ONE (16:00)
--- NOTE | 2018-06-03 16:32 | NUR ---
pt has a wound vac, did not take pics of wound for Monday pics. Wound care will take them tomorrow. Ammon De La O RN
[2018-06-03] MEDS: ATORVASTATIN CALCIUM 40 MG TABLET. PO SCH (19:56)
[2018-06-03 19:59] VITALS: BP 133/55
[2018-06-03 23:37] VITALS: BP 137/57
[2018-06-04] MEDS: fentaNYL PF VIAL 100 MCG/2 ML VIAL IV PRN ×3 (00:01→21:03)
[2018-06-04 01:42] LABS: PROTHROMBIN TIME PATIENT 18.8 SEC (11.7-14.0)
[2018-06-04 01:44] LABS: CALCIUM 9.1 mg/dL (8.5-10.1); GFR 76.7; POTASSIUM 4.7 mmol/L (3.5-5.1)
[2018-06-04 01:48] LABS: UNFRACTIONATED HEPARIN TESTING 0.55 IU/mL (0.30-0.70)
[2018-06-04] MEDS: HEPARIN 25,000UTS/500ML PREMIX 500 ML IV PRN ×2 (03:09→15:05)
[2018-06-04 03:40] VITALS: BP 137/60
[2018-06-04] MEDS: ceFAZolin SODIUM 1 GM in IV DEXTROSE 5% 50 ML IV SCH ×3 (05:18→22:12)
[2018-06-04] MEDS: oxyCODONE/APAP 5/325 1 TAB TABLET PO PRN ×4 (05:19→22:12)
[2018-06-04 07:25] VITALS: BP 122/66
[2018-06-04] MEDS: IPRATRPIUM/ALBUTEROL 0.5/2.5MG 3 ML NEBU. NEB SCH ×4 (07:42→20:42)
[2018-06-04] MEDS: AZITHROMYCIN 250 MG TABLET. PO SCH (08:32)
[2018-06-04] MEDS: LACTOBACILLUS RHAMNOSUS GG 1 CAPSULE. PO SCH ×2 (08:32→21:00)
[2018-06-04] MEDS: CETIRIZINE HCL 10 MG TABLET. PO SCH (08:32)
[2018-06-04] MEDS: GABAPENTIN 300 MG CAPSULE. PO SCH ×2 (08:32→21:00)
[2018-06-04] MEDS: SENNOSIDES 8.6 MG TABLET PO SCH ×2 (08:33→21:00)
[2018-06-04] MEDS: PIOGLITAZONE 15 MG TABLET. PO SCH (08:33)
[2018-06-04] MEDS: metFORMIN 500 MG TABLET PO SCH ×2 (08:33→17:11)
[2018-06-04] MEDS: TAMSULOSIN 0.4 MG CAP.ER.24H. PO SCH (08:33)
[2018-06-04] MEDS: LISINOPRIL 20 MG TABLET PO SCH (08:33)
[2018-06-04] MEDS: MULTIVITAMIN with MINERAL TABLET. PO SCH (08:33)
[2018-06-04] MEDS: ASCORBIC ACID 500 MG TABLET PO SCH (08:33)
[2018-06-04] MEDS: INSULIN GLARGINE 300 UNITS/3 ML INSULN.PEN. SQ SCH ×2 (08:42→21:03)
[2018-06-04] MEDS: INSULIN LISPRO 300 UNITS/3 ML INSULN.PEN. SQ SCH ×6 (08:43→17:21)
[2018-06-04] MEDS: BACITRACIN/POLYMYXIN B TOPICAL OINT 15GM TUBE. TP SCH ×3 (09:00→21:01)
--- NOTE | 2018-06-04 09:33 | PDOC ---
PULMONARY PROGRESS NOTES Subjective slight hemoptysis today old blood no soa Vitals Vital Signs Date Time Temp Pulse Resp B/P (MAP) Pulse Ox O2 Delivery O2 Flow Rate FiO2 06/04/18 08:33 71 122/66 06/04/18 08:00 Room Air 06/04/18 07:42 95 06/04/18 07:25 98.3 18 98.3 06/03/18 08:17 3.0 ROS: No Increase Cough General: Alert, No acute distress Lungs: Clear Cardiovascular: S1 Abdomen: Soft, Other (obese) Neuro Exam: Alert Extremities: Other (cellulitis left leg) Labs Laboratory Tests Test 06/02/18 11:49 06/02/18 13:45 06/02/18 16:57 06/02/18 19:38 Glucose (Fingerstick) 258 mg/dL (70-99) 132 mg/dL (70-99) Prothrombin Time 16.6 SEC (11.7-14.0) Prothromb Time International Ratio 1.4 (0.8-1.1) Heparin Anti-Xa Act, Unfractionated 0.42 IU/mL (0.30-0.70) 0.49 IU/mL (0.30-0.70) Test 06/02/18 21:30 06/03/18 03:25 06/03/18 07:30 06/03/18 10:09 Glucose (Fingerstick) 195 mg/dL (70-99) 168 mg/dL (70-99) White Blood Count 6.4 x10^3/uL (4.0-11.0) Red Blood Count 2.60 x10^6/uL (4.30-5.70) Hemoglobin 8.1 g/dL (13.0-17.5) Hematocrit 25.7 % (39.0-53.0) Mean Corpuscular Volume 99 fL (79-100) Mean Corpuscular Hemoglobin 31 pg (25-35) Mean Corpuscular Hemoglobin Concent 32 g/dL (31-37) Red Cell Distribution Width 18.1 % (11.5-14.5) Platelet Count 149 x10^3/uL (140-400) Neutrophils (%) (Auto) 43 % (31-73) Lymphocytes (%) (Auto) 48 % (24-48) Monocytes (%) (Auto) 7 % (0-9) Eosinophils (%) (Auto) 2 % (0-3) Basophils (%) (Auto) 0 % (0-3) Neutrophils # (Auto) 2.7 x10^3uL (1.8-7.7) Lymphocytes # (Auto) 3.1 x10^3/uL (1.0-4.8) Monocytes # (Auto) 0.5 x10^3/uL (0.0-1.1) Eosinophils # (Auto) 0.1 x10^3/uL (0.0-0.7) Basophils # (Auto) 0.0 x10^3/uL (0.0-0.2) Prothrombin Time 17.6 SEC (11.7-14.0) Prothromb Time International Ratio 1.5 (0.8-1.1) Heparin Anti-Xa Act, Unfractionated 0.80 IU/mL (0.30-0.70) Test 06/03/18 11:54 06/03/18 17:04 06/03/18 18:35 06/03/18 19:47 Glucose (Fingerstick) 255 mg/dL (70-99) 138 mg/dL (70-99) 178 mg/dL (70-99) Heparin Anti-Xa Act, Unfractionated 0.53 IU/mL (0.30-0.70) Test 06/04/18 01:10 06/04/18 07:34 Erythrocyte Sedimentation Rate 86 (0-15) Prothrombin Time 18.8 SEC (11.7-14.0) Prothromb Time International Ratio 1.6 (0.8-1.1) Heparin Anti-Xa Act, Unfractionated 0.55 IU/mL (0.30-0.70) Sodium Level 144 mmol/L (136-145) Potassium Level 4.7 mmol/L (3.5-5.1) Chloride Level 106 mmol/L (98-107) Carbon Dioxide Level 29 mmol/L (21-32) Anion Gap 9 (6-14) Blood Urea Nitrogen 14 mg/dL (8-26) Creatinine 1.0 mg/dL (0.7-1.3) Estimated GFR (Cockcroft-Gault) 76.7 Glucose Level 218 mg/dL (70-99) Calcium Level 9.1 mg/dL (8.5-10.1) Glucose (Fingerstick) 173 mg/dL (70-99) Laboratory Tests Test 06/03/18 10:09 06/03/18 11:54 06/03/18 17:04 06/03/18 18:35 Heparin Anti-Xa Act, Unfractionated 0.80 IU/mL (0.30-0.70) 0.53 IU/mL (0.30-0.70) Glucose (Fingerstick) 255 mg/dL (70-99) 138 mg/dL (70-99) Test 06/03/18 19:47 06/04/18 01:10 06/04/18 07:34 Glucose (Fingerstick) 178 mg/dL (70-99) 173 mg/dL (70-99) Erythrocyte Sedimentation Rate 86 (0-15) Prothrombin Time 18.8 SEC (11.7-14.0) Prothromb Time International Ratio 1.6 (0.8-1.1) Heparin Anti-Xa Act, Unfractionated 0.55 IU/mL (0.30-0.70) Sodium Level 144 mmol/L (136-145) Potassium Level 4.7 mmol/L (3.5-5.1) Chloride Level 106 mmol/L (98-107) Carbon Dioxide Level 29 mmol/L (21-32) Anion Gap 9 (6-14) Blood Urea Nitrogen 14 mg/dL (8-26) Creatinine 1.0 mg/dL (0.7-1.3) Estimated GFR (Cockcroft-Gault) 76.7 Glucose Level 218 mg/dL (70-99) Calcium Level 9.1 mg/dL (8.5-10.1) Medications Active Scripts Medications Dose Route/Sig Max Daily Dose Days Date Category Preparation H Ointment (Phenyleph/Mineral Oil/Petrolat) 28 Gm Oint.appl 28 Gm RC QID 05/25/18 Reported Muscle Rub Cream (Methyl Salicylate/Menthol) 113 Gm Cream..g. 1 Gm TP TID 05/25/18 Reported Proair Hfa Inhaler (Albuterol Sulfate) 8.5 Gm Hfa.aer.ad 1 Puff INH PRN Q6HRS PRN 05/25/18 Reported Zyrtec (Cetirizine Hcl) 10 Mg Tablet 1 Tab PO DAILY 05/25/18 Reported Atorvastatin Calcium 40 Mg Tablet 1 Tab PO QHS 05/25/18 Reported Metformin Hcl 1,000 Mg Tablet 1,000 Mg PO BIDWMEALS 05/25/18 Reported Gabapentin (Gabapentin) 300 Mg Capsule 300 Mg PO DAILY 05/25/18 Reported Gabapentin 600 Mg Tablet 600 Mg PO DAILY08 05/25/18 Reported Flomax (Tamsulosin Hcl) 0.4 Mg Cap.er.24h 1 Cap PO DAILY 05/25/18 Reported Tylenol (Acetaminophen) 325 Mg Tablet 2 Tab PO TID PRN PRN 05/25/18 Reported Humulin R (Insulin Regular, Human) 100 Unit/1 Ml Vial 100 Unit IJ TIDAC 05/25/18 Reported Lisinopril 20 Mg Tablet 1 Tab PO DAILY 05/25/18 Reported Furosemide 20 Mg Tablet 1 Tab PO DAILY 05/25/18 Reported Coumadin (Warfarin Sodium) 4 Mg Tablet 1 Tab PO DAILY 05/25/18 Reported Actos (Pioglitazone Hcl) 45 Mg Tablet 1 Tab PO DAILY 05/25/18 Reported Novolin N (Nph, Human Insulin Isophane) 100 Unit/1 Ml Vial 20 Unit SQ BID 05/25/18 Reported Senna (Sennosides) 8.6 Mg Tablet 2 Mg PO BID 05/25/18 Reported Impression . 1. Multiple metastatic nodules in the lungs, likely related to underlying renal cell cancer with lung metastasis. He underwent right nephrectomy in 2011 for renal cancer. 2. History of chronic deep venous thrombosis since 1988. His venous Dopplers showing persistent deep venous thrombus in 2017 as well as from 02/2018. He will need lifelong anticoagulation. He likely has hypercoagulable state secondary to underlying malignancy. 3. Left lower extremity cellulitis, status post wound infection and wound VAC. Vascular Surgery following. 4. No significant history of tobacco use. 5. Hemoptysis IMPROVING 6. Anemia, needs to be closely followed up. Plan . see orders will add codeine 1. Continue with present heparin until INR is therapeutic. I would continue with Coumadin per pharmacy. 2. Needs to monitor hemoglobin closely and if it continues to fall, then he may be a candidate for IVC filter. 3. We will leave up to oncology regarding any further chemo options for his metastasis in the lungs. 4. He may need Radiation Oncology consult as well regarding right posterior ninth rib large metastatic lesion and for pain control. 5. Added gram-negative coverage with Zithromax. 6. Follow Vascular Surgery's input. 7. Follow Oncology's recommendation. SANDER MARAVILLA MD Jun 04, 2018 09:33
--- NOTE | 2018-06-04 11:44 | PDOC ---
Infectious Disease Note Subjective: Subjective Feeling alright, but tired Postop Pain controlled No fevers c/o Lt thigh and swelling ROS: ROS Negative except for above. Vital Signs: Vital Signs Vital Signs Date Time Temp Pulse Resp B/P (MAP) Pulse Ox O2 Delivery O2 Flow Rate FiO2 06/04/18 08:33 71 122/66 06/04/18 08:00 Room Air 06/04/18 07:42 95 06/04/18 07:25 98.3 18 98.3 06/03/18 08:17 3.0 Physical Exam: PHYSICAL EXAM GENERAL: Propped up in bed, sleepy HEENT: Oral cavity, pharynx pink and moist. cluster herpetic-type lesions about the mouth/nares - dry/clearing NECK: Supple. LUNGS: Clear to auscultation. HEART: S1 and S2. ABDOMEN: Obese, soft and nontender with bowel sounds present. EXTREMITIES: LLE edema and tenderness in the thighs, Lt lower ext wound vac in place + warmth and localized redness. SKIN: without rash NEUROLOGIC: Sleepy, responds appropriately Medications: Inpatient Meds: Current Medications Medications (Trade) Dose Ordered Sig/Katiana Start Time Stop Time Status Last Admin Dose Admin Acetaminophen (Tylenol) 650 mg TID PRN PRN 05/25/18 18:15 UNV Al Hydroxide/Mg Hydroxide (Mylanta Plus Xs) 30 ml PRN DAILY PRN 05/25/18 18:00 05/27/18 17:49 30 ML Albuterol Sulfate (Ventolin Neb Soln) 2.5 mg PRN Q6HRS PRN 05/26/18 10:15 Albuterol/ Ipratropium (Duoneb) 3 ml QID 05/31/18 20:00 06/04/18 07:42 3 ML Allopurinol (Zyloprim) 200 mg DAILY 05/26/18 11:00 05/26/18 16:09 DC Ascorbic Acid (Vitamin C) 500 mg DAILY 05/28/18 17:00 06/04/18 08:33 500 MG Atorvastatin Calcium (Lipitor) 40 mg QHS 05/26/18 21:00 06/03/18 19:56 40 MG Azithromycin (Zithromax) 250 mg DAILY 06/03/18 09:00 06/07/18 09:00 3/25/19 08:32 250 MG Bacitracin/ Polymyxin B Sulfate (Polysporin) 1 ana TID 05/27/18 14:00 06/04/18 09:00 1 ANA Cefazolin Sodium 1 gm/Dextrose 50 ml @ 100 mls/hr Q8HRS 05/30/18 14:00 06/04/18 05:18 100 MLS/HR Cefazolin Sodium/ Dextrose 50 ml @ 100 mls/hr Q8HRS 05/30/18 14:00 05/30/18 14:00 DC Cetirizine HCl (ZyrTEC) 10 mg DAILY 05/26/18 10:30 06/04/18 08:32 10 MG Clonidine HCl (Catapres) 0.1 mg PRN Q6HRS PRN 05/25/18 18:00 Dextrose (Dextrose 50%-Water Syringe) 12.5 gm PRN Q15MIN PRN 05/26/18 13:00 Diphenhydramine HCl (Benadryl) 25 mg PRN Q4HRS PRN 05/25/18 18:00 Docusate Sodium (Colace) 100 mg PRN BID PRN 05/25/18 18:00 Enoxaparin Sodium (Lovenox 40mg Syringe) 40 mg DAILY 05/26/18 09:00 05/26/18 16:30 DC 05/26/18 09:39 40 MG Fentanyl Citrate (Fentanyl 2ml Vial) 100 mcg STK-MED ONCE 05/30/18 07:15 05/30/18 07:16 DC Furosemide (Lasix) 20 mg DAILY 05/26/18 09:00 05/27/18 13:28 DC Gabapentin (Neurontin) 900 mg HS 05/27/18 21:00 06/03/18 19:56 900 MG Guaifenesin (Robitussin) 200 mg PRN Q4HRS PRN 05/25/18 18:00 Heparin Sodium (Porcine) (Heparin Sodium) 1,700 unit PRN Q6HRS PRN 05/28/18 09:00 06/02/18 12:54 DC 06/02/18 06:17 1,700 UNIT Heparin Sodium/ Dextrose 500 ml @ 0 mls/hr CONT PRN 05/28/18 09:00 06/04/18 03:09 43.3 MLS/HR Hydromorphone HCl (Dilaudid) 0.5 mg PRN Q10MIN PRN 05/30/18 07:00 05/30/18 15:00 DC Info (Anti-Coagulation Monitoring By Pharmacy) 1 each PRN DAILY PRN 05/27/18 11:30 06/03/18 12:43 1 EACH Info (CONTRAST GIVEN -- Rx MONITORING) 1 each PRN DAILY PRN 06/01/18 18:00 06/03/18 17:59 DC Insulin Glargine (Lantus) 20 units BID 05/25/18 21:00 06/04/18 08:42 20 UNITS Insulin Human Lispro (HumaLOG) 0-7 UNITS TIDWMEALS 05/26/18 17:00 06/04/18 08:43 3 UNITS Iohexol (Omnipaque 300 Mg/ml) 60 ml 1X ONCE 06/01/18 18:00 06/01/18 18:01 DC 06/01/18 22:03 60 ML Lactobacillus Rhamnosus (Culturelle) 1 cap BID 05/27/18 21:00 06/04/18 08:32 1 CAP Lidocaine HCl (Lidocaine Pf 2% Vial) 5 ml STK-MED ONCE 05/30/18 08:43 05/30/18 08:44 DC Lidocaine HCl (Xylocaine-Mpf 1% 2ml Vial) 2 ml PRN 1X PRN 05/30/18 07:00 05/30/18 15:00 DC Linezolid/Dextrose 300 ml @ 300 mls/hr Q12HR 05/26/18 21:00 05/30/18 11:12 DC 05/30/18 11:04 300 MLS/HR Lisinopril (Prinivil) 20 mg DAILY 05/26/18 09:00 06/04/18 08:33 20 MG Lorazepam (Ativan) 0.5 mg PRN Q4HRS PRN 05/25/18 18:00 05/26/18 04:30 0.5 MG Metformin HCl (Glucophage) 1,000 mg BIDWMEALS 06/04/18 08:00 06/04/18 08:33 1,000 MG Morphine Sulfate (Morphine Sulfate) 1 mg PRN Q10MIN PRN 05/30/18 07:00 05/30/18 15:00 DC 05/30/18 09:29 1 MG Multivitamins (Thera M Plus) 1 tab DAILY 05/28/18 17:00 06/04/18 08:33 1 TAB Ondansetron HCl (Zofran) 4 mg STK-MED ONCE 05/30/18 08:42 05/30/18 08:43 DC Oxycodone/ Acetaminophen (Percocet 5/325) 1 tab PRN Q4HRS PRN 05/27/18 14:30 06/04/18 05:19 1 TAB Pioglitazone HCl (Actos) 45 mg DAILY 05/26/18 09:00 06/04/18 08:33 45 MG Piperacillin Sod/ Tazobactam Sod 3.375 gm/Sodium Chloride 50 ml @ 100 mls/hr Q6HRS 05/26/18 00:00 UNV Prochlorperazine Edisylate (Compazine) 5 mg PACU PRN PRN 05/30/18 07:00 05/30/18 15:00 DC Propofol 20 ml @ As Directed STK-MED ONCE 05/30/18 08:43 05/30/18 08:44 DC Ringer's Solution 1,000 ml @ 30 mls/hr Q24H 05/30/18 07:00 05/30/18 11:36 DC Sennosides (Senna) 17.2 mg BID 05/25/18 21:00 06/04/18 08:33 17.2 MG Sevoflurane (Ultane) 30 ml STK-MED ONCE 05/30/18 08:44 05/30/18 08:45 DC Sodium Chloride 1,000 ml @ 100 mls/hr Q10H 05/25/18 17:54 06/02/18 12:54 DC 06/02/18 05:50 100 MLS/HR Tamsulosin HCl (Flomax) 0.4 mg DAILY 05/26/18 10:30 06/04/18 08:33 0.4 MG Vancomycin HCl (Vanco Per Pharmacy) 1 each PRN DAILY PRN 05/25/18 18:45 05/26/18 18:24 DC 05/26/18 16:08 1 EACH Vancomycin HCl (Vancomycin Trough Level) 1 each 1X ONCE 05/27/18 08:30 05/27/18 08:30 DC Vancomycin HCl 1.5 gm/Sodium Chloride 500 ml @ 250 mls/hr Q12H 05/26/18 09:00 05/26/18 18:24 DC 05/26/18 09:39 250 MLS/HR Vancomycin HCl 2 gm/Sodium Chloride 500 ml @ 250 mls/hr 1X ONCE 05/25/18 19:00 05/25/18 20:59 DC 05/25/18 22:34 250 MLS/HR Warfarin Sodium (Coumadin Per Pharmacy) 1 each PRN DAILY PRN 05/31/18 14:15 06/03/18 12:43 1 EACH Warfarin Sodium (Coumadin Per Physician) 1 each PRN DAILY PRN 05/25/18 20:45 05/27/18 11:16 DC 05/26/18 16:15 1 EACH Warfarin Sodium (Coumadin) 7.5 mg 1X WARF ONCE 06/03/18 16:00 06/03/18 16:01 DC Zolpidem Tartrate (Ambien) 5 mg PRN QHS PRN 05/25/18 18:00 Labs: Lab Laboratory Tests Test 06/03/18 11:54 06/03/18 17:04 06/03/18 18:35 06/03/18 19:47 Glucose (Fingerstick) 255 mg/dL (70-99) 138 mg/dL (70-99) 178 mg/dL (70-99) Heparin Anti-Xa Act, Unfractionated 0.53 IU/mL (0.30-0.70) Test 06/04/18 01:10 06/04/18 07:34 Erythrocyte Sedimentation Rate 86 (0-15) Prothrombin Time 18.8 SEC (11.7-14.0) Prothromb Time International Ratio 1.6 (0.8-1.1) Heparin Anti-Xa Act, Unfractionated 0.55 IU/mL (0.30-0.70) Sodium Level 144 mmol/L (136-145) Potassium Level 4.7 mmol/L (3.5-5.1) Chloride Level 106 mmol/L (98-107) Carbon Dioxide Level 29 mmol/L (21-32) Anion Gap 9 (6-14) Blood Urea Nitrogen 14 mg/dL (8-26) Creatinine 1.0 mg/dL (0.7-1.3) Estimated GFR (Cockcroft-Gault) 76.7 Glucose Level 218 mg/dL (70-99) Calcium Level 9.1 mg/dL (8.5-10.1) Glucose (Fingerstick) 173 mg/dL (70-99) Objective: Assessment: Cellulitis of left lower extremity,,improving Nonhealing wounds of LLE since 2017,, now with eschar. s/p I and D taken down to fascia on 05/30/18. 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 wound care center Lt thigh swelling,redness and tenderness, Fever,,better Diabetes with peripheral neuropathy PVD h/o DVT on warfarin therapy h/o kidney cancer with mets to lung -followed by Dr. Tomlinson in [place], was on Sutent per patient -CT chest:Innumerable bilateral lung masses, right adrenal mass: expansile right posterior ninth rib mass. Solitary kidney Incarceration MRSA screen positive Plan: Plan of Care Continue cefazolin,,, soon to change to po keflex for d/c Azithromycin added per pulmonary Probiotics wound vac per vascular surgery BC neg will order venous doppler of LLE wound culture ROSALINEA MARCELLE MARSHALL MD Jun 04, 2018 11:44
[2018-06-04 12:16] VITALS: BP 134/70
--- NOTE | 2018-06-04 13:05 | PDOC ---
PROGRESS NOTES Chief Complaint Chief Complaint 1. marked complicated acute cellulitis left lower leg, indwelling left wound VAC 2. diabetes 2, mod control 3. hypertension 4. leg wound with cellullitis in DM2 5. OBESITY, BMI 38 6. Yandy prisoner low security 7. mod protein, caloric malnutrition 8. 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 ThromboCytopenia, platelets 136 11. INmate 12. Hemoptysis, thrombocytopenia, on heparin gtt History of Present Illness History of Present Illness Left inner thigh is indurated warm and painful Discussed with social work they can do wound VAC and IV antibiotics in usp if needed So far no fevers, ID on board On heparin drip for history multiple DVTs and now possibly lung metastases. INR still low 1.6 Some hemoptysis, platelets also on the low side Indwelling left wound VAC with remarkable postinflammatory hyperpigmentation and also some erythema on the left leg He came from home Barely could walk because of the significant left lower leg cellulitis He has multiple lung nodules, likely metastases from renal carcinoma He already has full follow-up with [facility] oncologist so we are not reinventing the wheel Urine culture blood culture negative Hemoglobin 8, WBC 4, platelets 136 with no bleeding Plan: continue heparin drip for now-multiple history DVT with multiple lung nodules likely mets - INR still subtherapeutic Back to usp on discharge with wound VAC and antibiotics Check a CT left leg rule out any abscess etc. ID has also ordered venous Dopplers rule out DVT and this patient was pretty much not ambulating because of wound VAC Monitor that thrombocytopenia especially patient on heparin drip - some hemoptysis today Start some mucolytic Follow cultures, IV antibiotics per ID Vitals Vitals Vital Signs Date Time Temp Pulse Resp B/P (MAP) Pulse Ox O2 Delivery O2 Flow Rate FiO2 06/04/18 12:16 98.2 88 19 134/70 (91) 92 Room Air 98.2 06/03/18 08:17 3.0 Physical Exam Physical Exam GENERAL: Propped up in bed, sleepy HEENT: Oral cavity, pharynx pink and moist. cluster herpetic-type lesions about the mouth/nares - dry/clearing NECK: Supple. LUNGS: Clear to auscultation. HEART: S1 and S2. ABDOMEN: Obese, soft and nontender with bowel sounds present. EXTREMITIES: LLE edema and tenderness in the thighs, Lt lower ext wound vac in place + warmth and localized redness. SKIN: without rash NEUROLOGIC: Sleepy, responds appropriately General: Alert, Oriented X3, Cooperative Heart: Regular rate Lungs: Clear Abdomen: Normal bowel sounds, No hepatosplenomegaly, Other (obese) Extremities: No clubbing, No cyanosis, No edema, Other (has wound vac left lee ) Skin: Other (as above, also almost petechial like rase right cheek which he says was due to med reaction) Labs LABS Laboratory Tests Test 06/03/18 17:04 06/03/18 18:35 06/03/18 19:47 06/04/18 01:10 Glucose (Fingerstick) 138 mg/dL (70-99) 178 mg/dL (70-99) Heparin Anti-Xa Act, Unfractionated 0.53 IU/mL (0.30-0.70) 0.55 IU/mL (0.30-0.70) Erythrocyte Sedimentation Rate 86 (0-15) Prothrombin Time 18.8 SEC (11.7-14.0) Prothromb Time International Ratio 1.6 (0.8-1.1) Sodium Level 144 mmol/L (136-145) Potassium Level 4.7 mmol/L (3.5-5.1) Chloride Level 106 mmol/L (98-107) Carbon Dioxide Level 29 mmol/L (21-32) Anion Gap 9 (6-14) Blood Urea Nitrogen 14 mg/dL (8-26) Creatinine 1.0 mg/dL (0.7-1.3) Estimated GFR (Cockcroft-Gault) 76.7 Glucose Level 218 mg/dL (70-99) Calcium Level 9.1 mg/dL (8.5-10.1) Test 06/04/18 07:34 06/04/18 12:10 Glucose (Fingerstick) 173 mg/dL (70-99) 160 mg/dL (70-99) Review of Systems Review of Systems hemoptysis, left leg painful, indurated Comment Review of Relevant I have reviewed the following items anjana (where applicable) has been applied. Labs Laboratory Tests Test 06/02/18 13:45 06/02/18 16:57 06/02/18 19:38 06/02/18 21:30 Prothrombin Time 16.6 SEC (11.7-14.0) Prothromb Time International Ratio 1.4 (0.8-1.1) Heparin Anti-Xa Act, Unfractionated 0.42 IU/mL (0.30-0.70) 0.49 IU/mL (0.30-0.70) Glucose (Fingerstick) 132 mg/dL (70-99) 195 mg/dL (70-99) Test 06/03/18 03:25 06/03/18 07:30 06/03/18 10:09 06/03/18 11:54 White Blood Count 6.4 x10^3/uL (4.0-11.0) Red Blood Count 2.60 x10^6/uL (4.30-5.70) Hemoglobin 8.1 g/dL (13.0-17.5) Hematocrit 25.7 % (39.0-53.0) Mean Corpuscular Volume 99 fL (79-100) Mean Corpuscular Hemoglobin 31 pg (25-35) Mean Corpuscular Hemoglobin Concent 32 g/dL (31-37) Red Cell Distribution Width 18.1 % (11.5-14.5) Platelet Count 149 x10^3/uL (140-400) Neutrophils (%) (Auto) 43 % (31-73) Lymphocytes (%) (Auto) 48 % (24-48) Monocytes (%) (Auto) 7 % (0-9) Eosinophils (%) (Auto) 2 % (0-3) Basophils (%) (Auto) 0 % (0-3) Neutrophils # (Auto) 2.7 x10^3uL (1.8-7.7) Lymphocytes # (Auto) 3.1 x10^3/uL (1.0-4.8) Monocytes # (Auto) 0.5 x10^3/uL (0.0-1.1) Eosinophils # (Auto) 0.1 x10^3/uL (0.0-0.7) Basophils # (Auto) 0.0 x10^3/uL (0.0-0.2) Prothrombin Time 17.6 SEC (11.7-14.0) Prothromb Time International Ratio 1.5 (0.8-1.1) Glucose (Fingerstick) 168 mg/dL (70-99) 255 mg/dL (70-99) Heparin Anti-Xa Act, Unfractionated 0.80 IU/mL (0.30-0.70) Test 06/03/18 17:04 06/03/18 18:35 06/03/18 19:47 06/04/18 01:10 Glucose (Fingerstick) 138 mg/dL (70-99) 178 mg/dL (70-99) Heparin Anti-Xa Act, Unfractionated 0.53 IU/mL (0.30-0.70) 0.55 IU/mL (0.30-0.70) Erythrocyte Sedimentation Rate 86 (0-15) Prothrombin Time 18.8 SEC (11.7-14.0) Prothromb Time International Ratio 1.6 (0.8-1.1) Sodium Level 144 mmol/L (136-145) Potassium Level 4.7 mmol/L (3.5-5.1) Chloride Level 106 mmol/L (98-107) Carbon Dioxide Level 29 mmol/L (21-32) Anion Gap 9 (6-14) Blood Urea Nitrogen 14 mg/dL (8-26) Creatinine 1.0 mg/dL (0.7-1.3) Estimated GFR (Cockcroft-Gault) 76.7 Glucose Level 218 mg/dL (70-99) Calcium Level 9.1 mg/dL (8.5-10.1) Test 06/04/18 07:34 06/04/18 12:10 Glucose (Fingerstick) 173 mg/dL (70-99) 160 mg/dL (70-99) Laboratory Tests Test 06/03/18 17:04 06/03/18 18:35 06/03/18 19:47 06/04/18 01:10 Glucose (Fingerstick) 138 mg/dL (70-99) 178 mg/dL (70-99) Heparin Anti-Xa Act, Unfractionated 0.53 IU/mL (0.30-0.70) 0.55 IU/mL (0.30-0.70) Erythrocyte Sedimentation Rate 86 (0-15) Prothrombin Time 18.8 SEC (11.7-14.0) Prothromb Time International Ratio 1.6 (0.8-1.1) Sodium Level 144 mmol/L (136-145) Potassium Level 4.7 mmol/L (3.5-5.1) Chloride Level 106 mmol/L (98-107) Carbon Dioxide Level 29 mmol/L (21-32) Anion Gap 9 (6-14) Blood Urea Nitrogen 14 mg/dL (8-26) Creatinine 1.0 mg/dL (0.7-1.3) Estimated GFR (Cockcroft-Gault) 76.7 Glucose Level 218 mg/dL (70-99) Calcium Level 9.1 mg/dL (8.5-10.1) Test 06/04/18 07:34 06/04/18 12:10 Glucose (Fingerstick) 173 mg/dL (70-99) 160 mg/dL (70-99) Microbiology 05/25/18 Blood Culture - Final, Complete NO GROWTH AFTER 5 DAYS 05/26/18 Urine Culture - Final, Complete 05/26/18 Urine Culture Result 1 (LUCY) - Final, Complete 05/26/18 Anaerobic/Aerobic Culture - Final, Complete 05/26/18 Anaerobic Culture Result 1 (LUCY) - Final, Complete 05/26/18 Aerobic Culture - Final, Complete 05/26/18 Aerobic Culture Result 1 (LUCY) - Final, Complete 05/26/18 Antimicrobic Susceptibility - Final, Complete 05/26/18 Gram Stain - Final, Complete 05/26/18 Gram Stain Result 1 (LUCY) - Final, Complete 05/26/18 Gram Stain Result 2 (LUCY) - Final, Complete Medications Current Medications Sodium Chloride 1,000 ml @ 100 mls/hr Q10H IV Last administered on 06/02/18at 05:50; Start 05/25/18 at 17:54; Stop 06/02/18 at 12:54; Status DC Ondansetron HCl (Zofran) 4 mg PRN Q4HRS PRN IV NAUSEA/VOMITING; Start 05/25/18 at 18:00 Zolpidem Tartrate (Ambien) 5 mg PRN QHS PRN PO INSOMNIA; Start 05/25/18 at 18: 00 Acetaminophen (Tylenol) 650 mg PRN Q4HRS PRN PO TEMP OVER 100.4F OR MILD PAIN Last administered on 05/26/18at 22:46; Start 05/25/18 at 18:00 Al Hydroxide/Mg Hydroxide (Mylanta Plus Xs) 30 ml PRN DAILY PRN PO HEARTBURN / GAS Last administered on 05/27/18at 17:49; Start 05/25/18 at 18:00 Clonidine HCl (Catapres) 0.1 mg PRN Q6HRS PRN PO SBP>160 OR DBP>90; Start 05/25 at 18:00 Diphenhydramine HCl (Benadryl) 25 mg PRN Q4HRS PRN IVP ITCHING; Start 05/25/18 at 18:00 Docusate Sodium (Colace) 100 mg PRN BID PRN PO CONSTIPATION; Start 05/25/18 at 18:00 Albuterol/ Ipratropium (Duoneb) 3 ml Q4HRS NEB Last administered on 05/31/18at 16:05; Start 05/25/18 at 20:00; Stop 05/31/18 at 18:30; Status DC Guaifenesin (Robitussin) 200 mg PRN Q4HRS PRN PO COUGH; Start 05/25/18 at 18:00 Lorazepam (Ativan) 0.5 mg PRN Q4HRS PRN PO ANXIETY / AGITATION Last administered on 05/26/18at 04:30; Start 05/25/18 at 18:00 Enoxaparin Sodium (Lovenox 40mg Syringe) 40 mg DAILY SQ Last administered on at 09:39; Start 05/26/18 at 09:00; Stop 05/26/18 at 16:30; Status DC Piperacillin Sod/ Tazobactam Sod 3.375 gm/Sodium Chloride 50 ml @ 100 mls/hr Q6HRS IV Last administered on 05/30/18at 06:06; Start 05/25/18 at 18:10; Stop at 11:12; Status DC Acetaminophen (Tylenol) 650 mg TID PRN PRN PO PAIN; Start 05/25/18 at 18:15; Status UNV Furosemide (Lasix) 20 mg DAILY PO ; Start 05/26/18 at 09:00; Stop 05/27/18 at 13 :28; Status DC Lisinopril (Prinivil) 20 mg DAILY PO Last administered on 06/04/18at 08:33; Start 05/26/18 at 09:00 Insulin Glargine (Lantus) 20 units BID SQ Last administered on 06/04/18 08:42 ; Start 05/25/18 at 21:00 Pioglitazone HCl (Actos) 45 mg DAILY PO Last administered on 06/04/18 08:33; Start 05/26/18 at 09:00 Sennosides (Senna) 17.2 mg BID PO Last administered on 06/04/18 08:33; Start 05/25/18 at 21:00 Warfarin Sodium (Coumadin) 4 mg DAILY16 PO Last administered on 05/26/18 18:06 ; Start 05/25/18 at 21:00; Stop 05/27/18 at 11:16; Status DC Piperacillin Sod/ Tazobactam Sod 3.375 gm/Sodium Chloride 50 ml @ 100 mls/hr Q6HRS IV ; Start 05/26/18 at 00:00; Status UNV Vancomycin HCl (Vanco Per Pharmacy) 1 each PRN DAILY PRN MC SEE COMMENTS Last administered on 05/26/18at 16:08; Start 05/25/18 at 18:45; Stop 05/26/18 at 18:24 ; Status DC Vancomycin HCl 2 gm/Sodium Chloride 500 ml @ 250 mls/hr 1X ONCE IV Last administered on 05/25/18at 22:34; Start 05/25/18 at 19:00; Stop 05/25/18 at 20:59 ; Status DC Warfarin Sodium (Coumadin Per Physician) 1 each PRN DAILY PRN MC SEE COMMENTS Last administered on 05/26/18at 16:15; Start 05/25/18 at 20:45; Stop 05/27/18 at 11:16; Status DC Vancomycin HCl 1.5 gm/Sodium Chloride 500 ml @ 250 mls/hr Q12H IV Last administered on 05/26/18at 09:39; Start 05/26/18 at 09:00; Stop 05/26/18 at 18:24 ; Status DC Vancomycin HCl (Vancomycin Trough Level) 1 each 1X ONCE MC ; Start 05/27/18 at 08:30; Stop 05/27/18 at 08:30; Status DC Fentanyl Citrate (Fentanyl 2ml Vial) 50 mcg PRN Q3HRS PRN IV MODERATE TO SEVERE PAIN Last administered on 06/04/18at 00:01; Start 05/25/18 at 22:00 Albuterol Sulfate (Ventolin Neb Soln) 2.5 mg PRN Q6HRS PRN INH SHORTNESS OF BREATH; Start 05/26/18 at 10:15 Allopurinol (Zyloprim) 200 mg DAILY PO ; Start 05/26/18 at 11:00; Stop 05/26/18 at 16:09; Status DC Atorvastatin Calcium (Lipitor) 40 mg QHS PO Last administered on 06/03/18 19: 56; Start 05/26/18 at 21:00 Cetirizine HCl (ZyrTEC) 10 mg DAILY PO Last administered on 06/04/18 08:32; Start 05/26/18 at 10:30 Tamsulosin HCl (Flomax) 0.4 mg DAILY PO Last administered on 06/04/18 08:33; Start 05/26/18 at 10:30 Gabapentin (Neurontin) 600 mg BID PO Last administered on 05/27/18 08:10; Start 05/26/18 at 10:15; Stop 05/27/18 at 13:29; Status DC Insulin Human Lispro (HumaLOG) 4 units TIDWMEALS SQ Last administered on 12:22; Start 05/26/18 at 17:00 Insulin Human Lispro (HumaLOG) 0-7 UNITS TIDWMEALS SQ Last administered on 06/04 12:23; Start 05/26/18 at 17:00 Dextrose (Dextrose 50%-Water Syringe) 12.5 gm PRN Q15MIN PRN IV SEE COMMENTS; Start 05/26/18 at 13:00 Metformin HCl (Glucophage) 1,000 mg BIDWMEALS PO Last administered on at 16:59; Start 05/26/18 at 17:00; Stop 06/01/18 at 17:54; Status DC Linezolid/Dextrose 300 ml @ 300 mls/hr Q12HR IV Last administered on at 11:04; Start 05/26/18 at 21:00; Stop 05/30/18 at 11:12; Status DC Heparin Sodium/ Dextrose 500 ml @ 0 mls/hr CONT PRN IV SEE I/O RECORD Last administered on 06/04/18at 03:09; Start 05/28/18 at 09:00 Heparin Sodium (Porcine) (Heparin Sodium) 3,400 unit PRN Q6HRS PRN IV FOR UFH LEVEL LESS THAN 0.2; Start 05/28/18 at 09:00 Heparin Sodium (Porcine) (Heparin Sodium) 1,700 unit PRN Q6HRS PRN IV FOR UFH LEVEL 0.2 - 0.29 Last administered on 06/02/18 06:17; Start 05/28/18 at 09:00; Stop 06/02/18 at 12:54; Status DC Info (Anti-Coagulation Monitoring By Pharmacy) 1 each PRN DAILY PRN MC SEE COMMENTS Last administered on 06/03/18 12:43; Start 05/27/18 at 11:30 Lactobacillus Rhamnosus (Culturelle) 1 cap BID PO Last administered on 08:32; Start 05/27/18 at 21:00 Bacitracin/ Polymyxin B Sulfate (Polysporin) 1 ana TID TP Last administered on 06/04/18 09:00; Start 05/27/18 at 14:00 Gabapentin (Neurontin) 600 mg DAILY08 PO Last administered on 06/04/18 08:32; Start 05/28/18 at 08:00 Gabapentin (Neurontin) 900 mg HS PO Last administered on 06/03/18 19:56; Start 05/27/18 at 21:00 Oxycodone/ Acetaminophen (Percocet 5/325) 1 tab PRN Q4HRS PRN PO MODERATE TO SEVERE PAIN Last administered on 06/04/18 05:19; Start 05/27/18 at 14:30 Multivitamins (Thera M Plus) 1 tab DAILY PO Last administered on 06/04/18 08: 33; Start 05/28/18 at 17:00 Ascorbic Acid (Vitamin C) 500 mg DAILY PO Last administered on 06/04/18 08:33 ; Start 05/28/18 at 17:00 Ondansetron HCl (Zofran) 4 mg PRN Q6HRS PRN IV NAUSEA/VOMITING; Start 05/30/18 at 07:00; Stop 05/30/18 at 15:00; Status DC Morphine Sulfate (Morphine Sulfate) 1 mg PRN Q10MIN PRN IV SEVERE PAIN Last administered on 05/30/18 09:29; Start 05/30/18 at 07:00; Stop 05/30/18 at 15:00 ; Status DC Ringer's Solution 1,000 ml @ 30 mls/hr Q24H IV ; Start 05/30/18 at 07:00; Stop 05/30/18 at 11:36; Status DC Lidocaine HCl (Xylocaine-Mpf 1% 2ml Vial) 2 ml PRN 1X PRN ID PRIOR TO IV START ; Start 05/30/18 at 07:00; Stop 05/30/18 at 15:00; Status DC Hydromorphone HCl (Dilaudid) 0.5 mg PRN Q10MIN PRN IV SEV PAIN, Second choice; Start 05/30/18 at 07:00; Stop 05/30/18 at 15:00; Status DC Prochlorperazine Edisylate (Compazine) 5 mg PACU PRN PRN IV NAUSEA, MRX1; Start 05/30/18 at 07:00; Stop 05/30/18 at 15:00; Status DC Albuterol/ Ipratropium (Duoneb) 3 ml 1X ONCE NEB Last administered on at 07:10; Start 05/30/18 at 07:15; Stop 05/30/18 at 07:16; Status DC Fentanyl Citrate (Fentanyl 2ml Vial) 100 mcg STK-MED ONCE .ROUTE ; Start at 07:15; Stop 05/30/18 at 07:16; Status DC Ondansetron HCl (Zofran) 4 mg STK-MED ONCE .ROUTE ; Start 05/30/18 at 08:42; Stop 05/30/18 at 08:43; Status DC Propofol 20 ml @ As Directed STK-MED ONCE IV ; Start 05/30/18 at 08:43; Stop at 08:44; Status DC Lidocaine HCl (Lidocaine Pf 2% Vial) 5 ml STK-MED ONCE .ROUTE ; Start 05/30/18 at 08:43; Stop 05/30/18 at 08:44; Status DC Sevoflurane (Ultane) 30 ml STK-MED ONCE IH ; Start 05/30/18 at 08:44; Stop 05/30 at 08:45; Status DC Cefazolin Sodium/ Dextrose 50 ml @ 100 mls/hr Q8HRS IV ; Start 05/30/18 at 14: 00; Stop 05/30/18 at 14:00; Status DC Cefazolin Sodium 50 ml @ 100 mls/hr Q8HRS IV ; Start 05/30/18 at 14:00; Status UNV Cefazolin Sodium 1 gm/Dextrose 50 ml @ 100 mls/hr Q8HRS IV Last administered on 06/04/18 05:18; Start 05/30/18 at 14:00 Warfarin Sodium (Coumadin Per Pharmacy) 1 each PRN DAILY PRN MC SEE COMMENTS Last administered on 06/03/18at 12:43; Start 05/31/18 at 14:15 Warfarin Sodium (Coumadin) 5 mg DAILY16 PO Last administered on 05/31/18 16:54 ; Start 05/31/18 at 16:00; Stop 06/01/18 at 12:58; Status DC Albuterol/ Ipratropium (Duoneb) 3 ml QID NEB Last administered on 06/04/18 07: 42; Start 05/31/18 at 20:00 Warfarin Sodium (Coumadin) 6 mg 1X WARF ONCE PO Last administered on at 17:47; Start 06/01/18 at 16:00; Stop 06/01/18 at 16:01; Status DC Iohexol (Omnipaque 300 Mg/ml) 60 ml 1X ONCE IV Last administered on 06/01/18 22:03; Start 06/01/18 at 18:00; Stop 06/01/18 at 18:01; Status DC Metformin HCl (Glucophage) 1,000 mg BIDWMEALS PO Last administered on at 08:33; Start 06/04/18 at 08:00 Info (CONTRAST GIVEN -- Rx MONITORING) 1 each PRN DAILY PRN MC SEE COMMENTS; Start 06/01/18 at 18:00; Stop 06/03/18 at 17:59; Status DC Azithromycin (Zithromax) 500 mg 1X ONCE PO Last administered on 06/02/18at 12: 18; Start 06/02/18 at 10:30; Stop 06/02/18 at 10:31; Status DC Azithromycin (Zithromax) 250 mg DAILY PO Last administered on 06/04/18at 08:32; Start 06/03/18 at 09:00; Stop 3/28/19 at 09:00 Warfarin Sodium (Coumadin) 7.5 mg 1X WARF ONCE PO Last administered on at 15:59; Start 06/02/18 at 16:00; Stop 06/02/18 at 16:01; Status DC Warfarin Sodium (Coumadin) 7.5 mg 1X WARF ONCE PO ; Start 06/03/18 at 16:00; Stop 06/03/18 at 16:01; Status DC Active Scripts Active Reported Preparation H Ointment (Phenyleph/Mineral Oil/Petrolat) 28 Gm Oint.appl 28 Gm RC QID Muscle Rub Cream (Methyl Salicylate/Menthol) 113 Gm Cream..g. 1 Gm TP TID Proair Hfa Inhaler (Albuterol Sulfate) 8.5 Gm Hfa.aer.ad 1 Puff INH PRN Q6HRS PRN Zyrtec (Cetirizine Hcl) 10 Mg Tablet 1 Tab PO DAILY Atorvastatin Calcium 40 Mg Tablet 1 Tab PO QHS Metformin Hcl 1,000 Mg Tablet 1,000 Mg PO BIDWMEALS Gabapentin (Gabapentin) 300 Mg Capsule 300 Mg PO DAILY Gabapentin 600 Mg Tablet 600 Mg PO DAILY08 Flomax (Tamsulosin Hcl) 0.4 Mg Cap.er.24h 1 Cap PO DAILY Tylenol (Acetaminophen) 325 Mg Tablet 2 Tab PO TID PRN PRN Humulin R (Insulin Regular, Human) 100 Unit/1 Ml Vial 100 Unit IJ TIDAC Lisinopril 20 Mg Tablet 1 Tab PO DAILY Furosemide 20 Mg Tablet 1 Tab PO DAILY Coumadin (Warfarin Sodium) 4 Mg Tablet 1 Tab PO DAILY Actos (Pioglitazone Hcl) 45 Mg Tablet 1 Tab PO DAILY Novolin N (Nph, Human Insulin Isophane) 100 Unit/1 Ml Vial 20 Unit SQ BID Senna (Sennosides) 8.6 Mg Tablet 2 Mg PO BID Vitals/I & O Vital Sign - Last 24 Hours 06/03/18 06/03/18 06/03/18 06/03/18 15:00 15:37 15:48 19:55 Temp 98.8 98.8 Pulse 87 Resp 18 B/P (MAP) 136/56 (82) Pulse Ox 98 96 O2 Delivery Room Air Room Air Room Air Room Air 06/03/18 06/03/18 06/03/18 06/03/18 19:59 20:00 20:17 20:47 Temp 97.8 97.8 Pulse 89 Resp 18 B/P (MAP) 133/55 (81) Pulse Ox 96 96 O2 Delivery Room Air Room Air Room Air Room Air 06/03/18 06/04/18 06/04/18 06/04/18 23:37 00:00 00:01 00:31 Temp 97.9 97.9 Pulse 87 Resp 20 B/P (MAP) 137/57 (83) Pulse Ox 92 O2 Delivery Room Air Room Air Room Air Room Air 06/04/18 06/04/18 06/04/18 06/04/18 03:40 05:19 06:20 07:25 Temp 98.1 98.3 98.1 98.3 Pulse 84 71 Resp 20 18 B/P (MAP) 137/60 (85) 122/66 (84) Pulse Ox 92 99 O2 Delivery Room Air Room Air Room Air Room Air 06/04/18 06/04/18 06/04/18 06/04/18 07:42 08:00 08:33 12:16 Temp 98.2 98.2 Pulse 71 88 Resp 19 B/P (MAP) 122/66 134/70 (91) Pulse Ox 95 92 O2 Delivery Room Air Room Air Room Air Intake and Output 06/03/18 06/03/18 06/04/18 14:59 22:59 06:59 Intake Total 240 ml 1550 ml 250 ml Output Total 800 ml 1900 ml 1250 ml Balance -560 ml -350 ml -1000 ml SHAUN JOSE MD Jun 04, 2018 13:05
--- NOTE | 2018-06-04 14:24 | NUR ---
Pharmacy Warfarin Dosing Note S: Pharmacy consulted to assist with anticoagulation therapy started O: HELADIO GAO is a 57 year old M with Recurrent VTE LABS: Last INR: 1.6 Last HGB: 8.1 Last HCT: 25.7 Last PLT: 149 Last dose of NOT GIVEN PER NURSE given on 06/03/18 at 1600 A:INR of 1.6 is below desired range. Target range for this patient is: 2 -3 P: Warfarin dose: 7.5 mg Today at 1600 Bridge Therapy: Heparin Therapeutic CONT Next INR due 06/05/18 AM Pharmacy anticoagulation service will continue to follow. ISHA PABON [facility], 06/04/18 [id number]
--- NOTE | 2018-06-04 14:52 | RAD ---
CT of the left thigh Indication: induration, r.o any abscess etc. Left thigh Exposure: One or more of the following individualized dose reduction techniques were utilized for this examination: 1. Automated exposure control 2. Adjustment of the mA and/or kV according to patient size 3. Use of iterative reconstruction technique. There is severe subcutaneous tissue thickening and density around the left thigh. Proximally this is greatest laterally but a circumferential at the distal thigh. This also extends superiorly into the lower lateral left flank. No large drainable fluid collection or abscess is seen, although CT could miss a small collection. The intermuscular fat planes appear preserved. No evidence of gross muscle swelling No aggressive bone destruction. No acute fracture. No periosteal reaction. Mild enlarged lymph nodes are identified in the left inguinal region and anterior left thigh, measuring up to 2 cm in short axis. IMPRESSION: 1. Extensive subcutaneous edema or cellulitis of the left thigh and lower left flank. No definite drainable abscess although could be difficult to detect a small fluid collection by CT. 2. Mild nonspecific left inguinal lymph node enlargement, may be inflammatory or infectious in this clinical setting. Electronically signed by: Ean Diaz MD (06/04/2018 2:49 PM) [id number]
[2018-06-04 15:26] VITALS: BP 119/61
--- NOTE | 2018-06-04 15:33 | RAD ---
Left lower extremity venous ultrasound, 06/04/2018 : History: Left thigh pain and swelling Duplex evaluation including grayscale, color flow and spectral Doppler analysis was performed. The left common femoral vein is widely patent. There is smooth echogenic mural thickening in the femoral vein in the left thigh compatible with nonocclusive thrombus. This probably represents residual chronic thrombus in this patient who had extensive left lower extremity deep vein thrombosis evident on a prior exam from 01/07/2017. The left femoral and popliteal veins are patent. No popliteal vein thrombus is seen. The visualized deep veins in the left lower leg are patent. IMPRESSION: Nonocclusive thrombus in the superficial femoral vein in the left thigh which is probably residual chronic thrombus in this patient who had extensive left lower extremity DVT in 2017. Electronically signed by: Surya Hernandez MD (06/04/2018 3:30 PM) [facility]
[2018-06-04] MEDS ORDERED: WARFARIN 7.5 MG TABLET. PO ONE (16:00)
--- NOTE | 2018-06-04 16:00 | NUR ---
Wound Care Wound care follow up vac dressing change. Pt has VLU to LLE that were debrided on 05/30. NPWT set with vera flow at 125mmHg pressure with black foam and 14 ml NS soaks for 10 min every 3 hours. No other wounds noted on full skin inspection. Pt left on side of bed with call light in reach, pt educated on PU prevention. WC will follow up on Monday for next vac change.
[2018-06-04] MEDS: guaiFENesin/CODEINE 100mg/10mg 5 ML LIQUID PO PRN (19:33)
[2018-06-04 19:49] VITALS: BP 129/66
[2018-06-04] MEDS: ATORVASTATIN CALCIUM 40 MG TABLET. PO SCH (21:00)
[2018-06-04 23:09] VITALS: BP 128/59
[2018-06-05] MEDS: HEPARIN 25,000UTS/500ML PREMIX 500 ML IV PRN ×2 (02:40→14:04)
[2018-06-05 03:31] VITALS: BP 119/56
[2018-06-05 05:21] LABS: BASO % 0 % (0-3); EOS # 0.1 x10^3/uL (0.0-0.7); EOS % 2 % (0-3); HEMATOCRIT 25.5 % (39.0-53.0); HEMOGLOBIN 8.3 g/dL (13.0-17.5); LYMPH % 45 % (24-48); MEAN CORPUSCULAR HEMOGLOBIN 32 pg (25-35); MEAN CORPUSCULAR HGB CONC 33 g/dL (31-37); MEAN CORPUSCULAR VOLUME 99 fL (79-100); MONO # 0.5 x10^3/uL (0.0-1.1); MONO % 6 % (0-9); NEUT # 4.3 x10^3uL (1.8-7.7); NEUT % 48 % (31-73); PLATELET COUNT 165 x10^3/uL (140-400); RED BLOOD COUNT 2.58 x10^6/uL (4.30-5.70); RED CELL DISTRIBUTION WIDTH 17.7 % (11.5-14.5)
[2018-06-05 05:38] LABS: UNFRACTIONATED HEPARIN TESTING 0.74 IU/mL (0.30-0.70)
[2018-06-05 05:59] LABS: PROTHROMBIN TIME PATIENT 16.9 SEC (11.7-14.0)
[2018-06-05] MEDS: ceFAZolin SODIUM 1 GM in IV DEXTROSE 5% 50 ML IV SCH ×3 (06:06→21:16)
[2018-06-05 07:15] VITALS: BP 128/65
[2018-06-05] MEDS: IPRATRPIUM/ALBUTEROL 0.5/2.5MG 3 ML NEBU. NEB SCH ×4 (07:19→19:16)
[2018-06-05] MEDS: LACTOBACILLUS RHAMNOSUS GG 1 CAPSULE. PO SCH ×2 (08:08→21:15)
[2018-06-05] MEDS: oxyCODONE/APAP 5/325 1 TAB TABLET PO PRN ×4 (08:08→21:14)
[2018-06-05] MEDS: ASCORBIC ACID 500 MG TABLET PO SCH (08:08)
[2018-06-05] MEDS: GABAPENTIN 300 MG CAPSULE. PO SCH ×2 (08:08→21:15)
[2018-06-05] MEDS: MULTIVITAMIN with MINERAL TABLET. PO SCH (08:09)
[2018-06-05] MEDS: AZITHROMYCIN 250 MG TABLET. PO SCH (08:09)
[2018-06-05] MEDS: SENNOSIDES 8.6 MG TABLET PO SCH ×2 (08:09→21:14)
[2018-06-05] MEDS: LISINOPRIL 20 MG TABLET PO SCH (08:09)
[2018-06-05] MEDS: metFORMIN 500 MG TABLET PO SCH ×2 (08:09→17:06)
[2018-06-05] MEDS: PIOGLITAZONE 15 MG TABLET. PO SCH (08:09)
[2018-06-05] MEDS: CETIRIZINE HCL 10 MG TABLET. PO SCH (08:09)
[2018-06-05] MEDS: TAMSULOSIN 0.4 MG CAP.ER.24H. PO SCH (08:10)
[2018-06-05] MEDS: BACITRACIN/POLYMYXIN B TOPICAL OINT 15GM TUBE. TP SCH ×3 (08:10→21:00)
[2018-06-05] MEDS: INSULIN LISPRO 300 UNITS/3 ML INSULN.PEN. SQ SCH ×6 (08:19→17:15)
[2018-06-05] MEDS: INSULIN GLARGINE 300 UNITS/3 ML INSULN.PEN. SQ SCH ×2 (08:20→21:22)
--- NOTE | 2018-06-05 09:25 | PDOC ---
PROGRESS NOTES Chief Complaint Chief Complaint 1. marked complicated acute cellulitis left lower leg, indwelling left wound VAC 2. Occlusive thrombus left femoral vein-possibly remnant of previous DVT on that same leg 3. diabetes 2, mod control 4. hypertension 5. OBESITY, BMI 38 6. Yandy prisoner low security 7. mod protein, caloric malnutrition 8. 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 ThromboCytopenia, platelets 136 11. INmate 12. Hemoptysis, thrombocytopenia, on heparin gtt 13. SUBTherapeutic INR History of Present Illness History of Present Illness Left inner thigh is indurated warm and painful Discussed with social work they can do wound VAC and IV antibiotics in senior living if needed So far no fevers, ID on board On heparin drip for history multiple DVTs and now possibly lung metastases. INR still low 1.6 Some hemoptysis, platelets also on the low side Indwelling left wound VAC with remarkable postinflammatory hyperpigmentation and also some erythema on the left leg He came from home Ultrasound of the left leg shows nonocclusive thrombus left femoral vein or could be a remnant from his previous DVT on the same leg INR is 1.4 on heparin drip and Coumadin per pharmacy He also has metastatic lesions to the lungs hence we are needing to anticoagulate with warfarin CAT scan shows extensive swelling inflammation on that left leg too. Patient on cefazolin and azithromycin. With ID on board Plan: await ID rounds further recommendations Cannot do NSAIDs for inflammation because on heparin drip, warfarin, with thrombocytopenia and some hemoptysis yesterday Can add a sedimentation rate tomorrow with CBC again Warfarin per pharmacy-would not discharge to senior living with low INR given comorbidities Discussed with social work, they can do IV antibiotics and wound care in senior living Wound VAC change Monday, looked okay, scheduled to be changed tomorrow Vitals Vitals Vital Signs Date Time Temp Pulse Resp B/P (MAP) Pulse Ox O2 Delivery O2 Flow Rate FiO2 06/05/18 08:09 78 128/65 06/05/18 08:08 Room Air 06/05/18 07:24 94 06/05/18 07:15 98.3 20 98.3 06/04/18 22:12 3.0 Physical Exam Physical Exam GENERAL: Propped up in bed, sleepy HEENT: Oral cavity, pharynx pink and moist. cluster herpetic-type lesions about the mouth/nares - dry/clearing NECK: Supple. LUNGS: Clear to auscultation. HEART: S1 and S2. ABDOMEN: Obese, soft and nontender with bowel sounds present. EXTREMITIES: LLE edema and tenderness in the thighs, Lt lower ext wound vac in place + warmth and localized redness. SKIN: without rash NEUROLOGIC: Sleepy, responds appropriately General: Alert, Oriented X3, Cooperative Heart: Regular rate Lungs: Clear Abdomen: Normal bowel sounds, No hepatosplenomegaly, Other (obese) Extremities: No clubbing, No cyanosis, No edema, Other (has wound vac left lee ) Skin: Other (as above, also almost petechial like rase right cheek which he says was due to med reaction) Labs LABS Laboratory Tests Test 06/04/18 12:10 06/04/18 16:16 06/04/18 20:17 06/05/18 04:30 Glucose (Fingerstick) 160 mg/dL (70-99) 140 mg/dL (70-99) 195 mg/dL (70-99) White Blood Count 9.0 x10^3/uL (4.0-11.0) Red Blood Count 2.58 x10^6/uL (4.30-5.70) Hemoglobin 8.3 g/dL (13.0-17.5) Hematocrit 25.5 % (39.0-53.0) Mean Corpuscular Volume 99 fL (79-100) Mean Corpuscular Hemoglobin 32 pg (25-35) Mean Corpuscular Hemoglobin Concent 33 g/dL (31-37) Red Cell Distribution Width 17.7 % (11.5-14.5) Platelet Count 165 x10^3/uL (140-400) Neutrophils (%) (Auto) 48 % (31-73) Lymphocytes (%) (Auto) 45 % (24-48) Monocytes (%) (Auto) 6 % (0-9) Eosinophils (%) (Auto) 2 % (0-3) Basophils (%) (Auto) 0 % (0-3) Neutrophils # (Auto) 4.3 x10^3uL (1.8-7.7) Lymphocytes # (Auto) 4.0 x10^3/uL (1.0-4.8) Monocytes # (Auto) 0.5 x10^3/uL (0.0-1.1) Eosinophils # (Auto) 0.1 x10^3/uL (0.0-0.7) Basophils # (Auto) 0.0 x10^3/uL (0.0-0.2) Prothrombin Time 16.9 SEC (11.7-14.0) Prothromb Time International Ratio 1.4 (0.8-1.1) Heparin Anti-Xa Act, Unfractionated 0.74 IU/mL (0.30-0.70) Test 06/05/18 07:00 Glucose (Fingerstick) 212 mg/dL (70-99) Review of Systems Review of Systems Left leg pain, otherwise the rest is okay Comment Review of Relevant I have reviewed the following items anjana (where applicable) has been applied. Labs Laboratory Tests Test 06/03/18 10:09 06/03/18 11:54 06/03/18 17:04 06/03/18 18:35 Heparin Anti-Xa Act, Unfractionated 0.80 IU/mL (0.30-0.70) 0.53 IU/mL (0.30-0.70) Glucose (Fingerstick) 255 mg/dL (70-99) 138 mg/dL (70-99) Test 06/03/18 19:47 06/04/18 01:10 06/04/18 07:34 06/04/18 12:10 Glucose (Fingerstick) 178 mg/dL (70-99) 173 mg/dL (70-99) 160 mg/dL (70-99) Erythrocyte Sedimentation Rate 86 (0-15) Prothrombin Time 18.8 SEC (11.7-14.0) Prothromb Time International Ratio 1.6 (0.8-1.1) Heparin Anti-Xa Act, Unfractionated 0.55 IU/mL (0.30-0.70) Sodium Level 144 mmol/L (136-145) Potassium Level 4.7 mmol/L (3.5-5.1) Chloride Level 106 mmol/L (98-107) Carbon Dioxide Level 29 mmol/L (21-32) Anion Gap 9 (6-14) Blood Urea Nitrogen 14 mg/dL (8-26) Creatinine 1.0 mg/dL (0.7-1.3) Estimated GFR (Cockcroft-Gault) 76.7 Glucose Level 218 mg/dL (70-99) Calcium Level 9.1 mg/dL (8.5-10.1) Test 06/04/18 16:16 06/04/18 20:17 06/05/18 04:30 06/05/18 07:00 Glucose (Fingerstick) 140 mg/dL (70-99) 195 mg/dL (70-99) 212 mg/dL (70-99) White Blood Count 9.0 x10^3/uL (4.0-11.0) Red Blood Count 2.58 x10^6/uL (4.30-5.70) Hemoglobin 8.3 g/dL (13.0-17.5) Hematocrit 25.5 % (39.0-53.0) Mean Corpuscular Volume 99 fL (79-100) Mean Corpuscular Hemoglobin 32 pg (25-35) Mean Corpuscular Hemoglobin Concent 33 g/dL (31-37) Red Cell Distribution Width 17.7 % (11.5-14.5) Platelet Count 165 x10^3/uL (140-400) Neutrophils (%) (Auto) 48 % (31-73) Lymphocytes (%) (Auto) 45 % (24-48) Monocytes (%) (Auto) 6 % (0-9) Eosinophils (%) (Auto) 2 % (0-3) Basophils (%) (Auto) 0 % (0-3) Neutrophils # (Auto) 4.3 x10^3uL (1.8-7.7) Lymphocytes # (Auto) 4.0 x10^3/uL (1.0-4.8) Monocytes # (Auto) 0.5 x10^3/uL (0.0-1.1) Eosinophils # (Auto) 0.1 x10^3/uL (0.0-0.7) Basophils # (Auto) 0.0 x10^3/uL (0.0-0.2) Prothrombin Time 16.9 SEC (11.7-14.0) Prothromb Time International Ratio 1.4 (0.8-1.1) Heparin Anti-Xa Act, Unfractionated 0.74 IU/mL (0.30-0.70) Laboratory Tests Test 06/04/18 12:10 06/04/18 16:16 06/04/18 20:17 06/05/18 04:30 Glucose (Fingerstick) 160 mg/dL (70-99) 140 mg/dL (70-99) 195 mg/dL (70-99) White Blood Count 9.0 x10^3/uL (4.0-11.0) Red Blood Count 2.58 x10^6/uL (4.30-5.70) Hemoglobin 8.3 g/dL (13.0-17.5) Hematocrit 25.5 % (39.0-53.0) Mean Corpuscular Volume 99 fL (79-100) Mean Corpuscular Hemoglobin 32 pg (25-35) Mean Corpuscular Hemoglobin Concent 33 g/dL (31-37) Red Cell Distribution Width 17.7 % (11.5-14.5) Platelet Count 165 x10^3/uL (140-400) Neutrophils (%) (Auto) 48 % (31-73) Lymphocytes (%) (Auto) 45 % (24-48) Monocytes (%) (Auto) 6 % (0-9) Eosinophils (%) (Auto) 2 % (0-3) Basophils (%) (Auto) 0 % (0-3) Neutrophils # (Auto) 4.3 x10^3uL (1.8-7.7) Lymphocytes # (Auto) 4.0 x10^3/uL (1.0-4.8) Monocytes # (Auto) 0.5 x10^3/uL (0.0-1.1) Eosinophils # (Auto) 0.1 x10^3/uL (0.0-0.7) Basophils # (Auto) 0.0 x10^3/uL (0.0-0.2) Prothrombin Time 16.9 SEC (11.7-14.0) Prothromb Time International Ratio 1.4 (0.8-1.1) Heparin Anti-Xa Act, Unfractionated 0.74 IU/mL (0.30-0.70) Test 06/05/18 07:00 Glucose (Fingerstick) 212 mg/dL (70-99) Microbiology 05/25/18 Blood Culture - Final, Complete NO GROWTH AFTER 5 DAYS 05/26/18 Urine Culture - Final, Complete 05/26/18 Urine Culture Result 1 (LUCY) - Final, Complete 05/26/18 Anaerobic/Aerobic Culture - Final, Complete 05/26/18 Anaerobic Culture Result 1 (LUCY) - Final, Complete 05/26/18 Aerobic Culture - Final, Complete 05/26/18 Aerobic Culture Result 1 (LUCY) - Final, Complete 05/26/18 Antimicrobic Susceptibility - Final, Complete 05/26/18 Gram Stain - Final, Complete 05/26/18 Gram Stain Result 1 (LUCY) - Final, Complete 05/26/18 Gram Stain Result 2 (LUCY) - Final, Complete Medications Current Medications Sodium Chloride 1,000 ml @ 100 mls/hr Q10H IV Last administered on 06/02/18at 05:50; Start 05/25/18 at 17:54; Stop 06/02/18 at 12:54; Status DC Ondansetron HCl (Zofran) 4 mg PRN Q4HRS PRN IV NAUSEA/VOMITING; Start 05/25/18 at 18:00 Zolpidem Tartrate (Ambien) 5 mg PRN QHS PRN PO INSOMNIA; Start 05/25/18 at 18: 00 Acetaminophen (Tylenol) 650 mg PRN Q4HRS PRN PO TEMP OVER 100.4F OR MILD PAIN Last administered on 05/26/18at 22:46; Start 05/25/18 at 18:00 Al Hydroxide/Mg Hydroxide (Mylanta Plus Xs) 30 ml PRN DAILY PRN PO HEARTBURN / GAS Last administered on 05/27/18at 17:49; Start 05/25/18 at 18:00 Clonidine HCl (Catapres) 0.1 mg PRN Q6HRS PRN PO SBP>160 OR DBP>90; Start 05/25 at 18:00 Diphenhydramine HCl (Benadryl) 25 mg PRN Q4HRS PRN IVP ITCHING; Start 05/25/18 at 18:00 Docusate Sodium (Colace) 100 mg PRN BID PRN PO CONSTIPATION; Start 05/25/18 at 18:00 Albuterol/ Ipratropium (Duoneb) 3 ml Q4HRS NEB Last administered on 05/31/18at 16:05; Start 05/25/18 at 20:00; Stop 05/31/18 at 18:30; Status DC Guaifenesin (Robitussin) 200 mg PRN Q4HRS PRN PO COUGH; Start 05/25/18 at 18:00 Lorazepam (Ativan) 0.5 mg PRN Q4HRS PRN PO ANXIETY / AGITATION Last administered on 05/26/18at 04:30; Start 05/25/18 at 18:00 Enoxaparin Sodium (Lovenox 40mg Syringe) 40 mg DAILY SQ Last administered on at 09:39; Start 05/26/18 at 09:00; Stop 05/26/18 at 16:30; Status DC Piperacillin Sod/ Tazobactam Sod 3.375 gm/Sodium Chloride 50 ml @ 100 mls/hr Q6HRS IV Last administered on 05/30/18at 06:06; Start 05/25/18 at 18:10; Stop at 11:12; Status DC Acetaminophen (Tylenol) 650 mg TID PRN PRN PO PAIN; Start 05/25/18 at 18:15; Status UNV Furosemide (Lasix) 20 mg DAILY PO ; Start 05/26/18 at 09:00; Stop 05/27/18 at 13 :28; Status DC Lisinopril (Prinivil) 20 mg DAILY PO Last administered on 06/05/18at 08:09; Start 05/26/18 at 09:00 Insulin Glargine (Lantus) 20 units BID SQ Last administered on 06/05/18at 08:20 ; Start 05/25/18 at 21:00 Pioglitazone HCl (Actos) 45 mg DAILY PO Last administered on 06/05/18at 08:09; Start 05/26/18 at 09:00 Sennosides (Senna) 17.2 mg BID PO Last administered on 06/05/18at 08:09; Start 05/25/18 at 21:00 Warfarin Sodium (Coumadin) 4 mg DAILY16 PO Last administered on 05/26/18at 18:06 ; Start 05/25/18 at 21:00; Stop 05/27/18 at 11:16; Status DC Piperacillin Sod/ Tazobactam Sod 3.375 gm/Sodium Chloride 50 ml @ 100 mls/hr Q6HRS IV ; Start 05/26/18 at 00:00; Status UNV Vancomycin HCl (Vanco Per Pharmacy) 1 each PRN DAILY PRN MC SEE COMMENTS Last administered on 05/26/18 16:08; Start 05/25/18 at 18:45; Stop 05/26/18 at 18:24 ; Status DC Vancomycin HCl 2 gm/Sodium Chloride 500 ml @ 250 mls/hr 1X ONCE IV Last administered on 05/25/18at 22:34; Start 05/25/18 at 19:00; Stop 05/25/18 at 20:59 ; Status DC Warfarin Sodium (Coumadin Per Physician) 1 each PRN DAILY PRN MC SEE COMMENTS Last administered on 05/26/18at 16:15; Start 05/25/18 at 20:45; Stop 05/27/18 at 11:16; Status DC Vancomycin HCl 1.5 gm/Sodium Chloride 500 ml @ 250 mls/hr Q12H IV Last administered on 05/26/18at 09:39; Start 05/26/18 at 09:00; Stop 05/26/18 at 18:24 ; Status DC Vancomycin HCl (Vancomycin Trough Level) 1 each 1X ONCE MC ; Start 05/27/18 at 08:30; Stop 05/27/18 at 08:30; Status DC Fentanyl Citrate (Fentanyl 2ml Vial) 50 mcg PRN Q3HRS PRN IV MODERATE TO SEVERE PAIN Last administered on 06/04/18at 21:03; Start 05/25/18 at 22:00 Albuterol Sulfate (Ventolin Neb Soln) 2.5 mg PRN Q6HRS PRN INH SHORTNESS OF BREATH; Start 05/26/18 at 10:15 Allopurinol (Zyloprim) 200 mg DAILY PO ; Start 05/26/18 at 11:00; Stop 05/26/18 at 16:09; Status DC Atorvastatin Calcium (Lipitor) 40 mg QHS PO Last administered on 06/04/18 21: 00; Start 05/26/18 at 21:00 Cetirizine HCl (ZyrTEC) 10 mg DAILY PO Last administered on 06/05/18at 08:09; Start 05/26/18 at 10:30 Tamsulosin HCl (Flomax) 0.4 mg DAILY PO Last administered on 06/05/18at 08:10; Start 05/26/18 at 10:30 Gabapentin (Neurontin) 600 mg BID PO Last administered on 05/27/18at 08:10; Start 05/26/18 at 10:15; Stop 05/27/18 at 13:29; Status DC Insulin Human Lispro (HumaLOG) 4 units TIDWMEALS SQ Last administered on at 08:19; Start 05/26/18 at 17:00 Insulin Human Lispro (HumaLOG) 0-7 UNITS TIDWMEALS SQ Last administered on 06/05at 08:19; Start 05/26/18 at 17:00 Dextrose (Dextrose 50%-Water Syringe) 12.5 gm PRN Q15MIN PRN IV SEE COMMENTS; Start 05/26/18 at 13:00 Metformin HCl (Glucophage) 1,000 mg BIDWMEALS PO Last administered on at 16:59; Start 05/26/18 at 17:00; Stop 06/01/18 at 17:54; Status DC Linezolid/Dextrose 300 ml @ 300 mls/hr Q12HR IV Last administered on at 11:04; Start 05/26/18 at 21:00; Stop 05/30/18 at 11:12; Status DC Heparin Sodium/ Dextrose 500 ml @ 0 mls/hr CONT PRN IV SEE I/O RECORD Last administered on 06/05/18at 02:40; Start 05/28/18 at 09:00 Heparin Sodium (Porcine) (Heparin Sodium) 3,400 unit PRN Q6HRS PRN IV FOR UFH LEVEL LESS THAN 0.2; Start 05/28/18 at 09:00 Heparin Sodium (Porcine) (Heparin Sodium) 1,700 unit PRN Q6HRS PRN IV FOR UFH LEVEL 0.2 - 0.29 Last administered on 06/02/18at 06:17; Start 05/28/18 at 09:00; Stop 06/02/18 at 12:54; Status DC Info (Anti-Coagulation Monitoring By Pharmacy) 1 each PRN DAILY PRN MC SEE COMMENTS Last administered on 06/03/18at 12:43; Start 05/27/18 at 11:30 Lactobacillus Rhamnosus (Culturelle) 1 cap BID PO Last administered on at 08:08; Start 05/27/18 at 21:00 Bacitracin/ Polymyxin B Sulfate (Polysporin) 1 ana TID TP Last administered on 06/05/18at 08:10; Start 05/27/18 at 14:00 Gabapentin (Neurontin) 600 mg DAILY08 PO Last administered on 06/05/18at 08:08; Start 05/28/18 at 08:00 Gabapentin (Neurontin) 900 mg HS PO Last administered on 06/04/18at 21:00; Start 05/27/18 at 21:00 Oxycodone/ Acetaminophen (Percocet 5/325) 1 tab PRN Q4HRS PRN PO MODERATE TO SEVERE PAIN Last administered on 06/05/18at 08:08; Start 05/27/18 at 14:30 Multivitamins (Thera M Plus) 1 tab DAILY PO Last administered on 06/05/18 08: 09; Start 05/28/18 at 17:00 Ascorbic Acid (Vitamin C) 500 mg DAILY PO Last administered on 06/05/18at 08:08 ; Start 05/28/18 at 17:00 Ondansetron HCl (Zofran) 4 mg PRN Q6HRS PRN IV NAUSEA/VOMITING; Start 05/30/18 at 07:00; Stop 05/30/18 at 15:00; Status DC Morphine Sulfate (Morphine Sulfate) 1 mg PRN Q10MIN PRN IV SEVERE PAIN Last administered on 05/30/18at 09:29; Start 05/30/18 at 07:00; Stop 05/30/18 at 15:00 ; Status DC Ringer's Solution 1,000 ml @ 30 mls/hr Q24H IV ; Start 05/30/18 at 07:00; Stop 05/30/18 at 11:36; Status DC Lidocaine HCl (Xylocaine-Mpf 1% 2ml Vial) 2 ml PRN 1X PRN ID PRIOR TO IV START ; Start 05/30/18 at 07:00; Stop 05/30/18 at 15:00; Status DC Hydromorphone HCl (Dilaudid) 0.5 mg PRN Q10MIN PRN IV SEV PAIN, Second choice; Start 05/30/18 at 07:00; Stop 05/30/18 at 15:00; Status DC Prochlorperazine Edisylate (Compazine) 5 mg PACU PRN PRN IV NAUSEA, MRX1; Start 05/30/18 at 07:00; Stop 05/30/18 at 15:00; Status DC Albuterol/ Ipratropium (Duoneb) 3 ml 1X ONCE NEB Last administered on at 07:10; Start 05/30/18 at 07:15; Stop 05/30/18 at 07:16; Status DC Fentanyl Citrate (Fentanyl 2ml Vial) 100 mcg STK-MED ONCE .ROUTE ; Start at 07:15; Stop 05/30/18 at 07:16; Status DC Ondansetron HCl (Zofran) 4 mg STK-MED ONCE .ROUTE ; Start 05/30/18 at 08:42; Stop 05/30/18 at 08:43; Status DC Propofol 20 ml @ As Directed STK-MED ONCE IV ; Start 05/30/18 at 08:43; Stop at 08:44; Status DC Lidocaine HCl (Lidocaine Pf 2% Vial) 5 ml STK-MED ONCE .ROUTE ; Start 05/30/18 at 08:43; Stop 05/30/18 at 08:44; Status DC Sevoflurane (Ultane) 30 ml STK-MED ONCE IH ; Start 05/30/18 at 08:44; Stop 05/30 at 08:45; Status DC Cefazolin Sodium/ Dextrose 50 ml @ 100 mls/hr Q8HRS IV ; Start 05/30/18 at 14: 00; Stop 05/30/18 at 14:00; Status DC Cefazolin Sodium 50 ml @ 100 mls/hr Q8HRS IV ; Start 05/30/18 at 14:00; Status UNV Cefazolin Sodium 1 gm/Dextrose 50 ml @ 100 mls/hr Q8HRS IV Last administered on 06/05/18at 06:06; Start 05/30/18 at 14:00 Warfarin Sodium (Coumadin Per Pharmacy) 1 each PRN DAILY PRN MC SEE COMMENTS Last administered on 06/04/18at 14:23; Start 05/31/18 at 14:15 Warfarin Sodium (Coumadin) 5 mg DAILY16 PO Last administered on 05/31/18at 16:54 ; Start 05/31/18 at 16:00; Stop 06/01/18 at 12:58; Status DC Albuterol/ Ipratropium (Duoneb) 3 ml QID NEB Last administered on 06/05/18 07: 19; Start 05/31/18 at 20:00 Warfarin Sodium (Coumadin) 6 mg 1X WARF ONCE PO Last administered on at 17:47; Start 06/01/18 at 16:00; Stop 06/01/18 at 16:01; Status DC Iohexol (Omnipaque 300 Mg/ml) 60 ml 1X ONCE IV Last administered on 06/01/18at 22:03; Start 06/01/18 at 18:00; Stop 06/01/18 at 18:01; Status DC Metformin HCl (Glucophage) 1,000 mg BIDWMEALS PO Last administered on at 08:09; Start 06/04/18 at 08:00 Info (CONTRAST GIVEN -- Rx MONITORING) 1 each PRN DAILY PRN MC SEE COMMENTS; Start 06/01/18 at 18:00; Stop 06/03/18 at 17:59; Status DC Azithromycin (Zithromax) 500 mg 1X ONCE PO Last administered on 06/02/18at 12: 18; Start 06/02/18 at 10:30; Stop 06/02/18 at 10:31; Status DC Azithromycin (Zithromax) 250 mg DAILY PO Last administered on 06/05/18at 08:09; Start 06/03/18 at 09:00; Stop 06/07/18 at 09:00 Warfarin Sodium (Coumadin) 7.5 mg 1X WARF ONCE PO Last administered on at 15:59; Start 06/02/18 at 16:00; Stop 06/02/18 at 16:01; Status DC Warfarin Sodium (Coumadin) 7.5 mg 1X WARF ONCE PO ; Start 06/03/18 at 16:00; Stop 06/03/18 at 16:01; Status DC Warfarin Sodium (Coumadin) 7.5 mg 1X WARF ONCE PO Last administered on at 16:39; Start 06/04/18 at 16:00; Stop 06/04/18 at 16:01; Status DC Guaifenesin/ Codeine Phosphate (Robitussin Ac) 5 ml PRN Q6HRS PRN PO COUGH Last administered on 06/04/18at 19:33; Start 06/04/18 at 18:30 Active Scripts Active Reported Preparation H Ointment (Phenyleph/Mineral Oil/Petrolat) 28 Gm Oint.appl 28 Gm RC QID Muscle Rub Cream (Methyl Salicylate/Menthol) 113 Gm Cream..g. 1 Gm TP TID Proair Hfa Inhaler (Albuterol Sulfate) 8.5 Gm Hfa.aer.ad 1 Puff INH PRN Q6HRS PRN Zyrtec (Cetirizine Hcl) 10 Mg Tablet 1 Tab PO DAILY Atorvastatin Calcium 40 Mg Tablet 1 Tab PO QHS Metformin Hcl 1,000 Mg Tablet 1,000 Mg PO BIDWMEALS Gabapentin (Gabapentin) 300 Mg Capsule 300 Mg PO DAILY Gabapentin 600 Mg Tablet 600 Mg PO DAILY08 Flomax (Tamsulosin Hcl) 0.4 Mg Cap.er.24h 1 Cap PO DAILY Tylenol (Acetaminophen) 325 Mg Tablet 2 Tab PO TID PRN PRN Humulin R (Insulin Regular, Human) 100 Unit/1 Ml Vial 100 Unit IJ TIDAC Lisinopril 20 Mg Tablet 1 Tab PO DAILY Furosemide 20 Mg Tablet 1 Tab PO DAILY Coumadin (Warfarin Sodium) 4 Mg Tablet 1 Tab PO DAILY Actos (Pioglitazone Hcl) 45 Mg Tablet 1 Tab PO DAILY Novolin N (Nph, Human Insulin Isophane) 100 Unit/1 Ml Vial 20 Unit SQ BID Senna (Sennosides) 8.6 Mg Tablet 2 Mg PO BID Vitals/I & O Vital Sign - Last 24 Hours 06/04/18 06/04/18 06/04/18 06/04/18 12:16 15:26 15:49 16:39 Temp 98.2 98.1 98.2 98.1 Pulse 88 93 Resp 19 24 B/P (MAP) 134/70 (91) 119/61 (80) Pulse Ox 92 92 92 92 O2 Delivery Room Air Room Air Room Air Room Air O2 Flow Rate 3.0 06/04/18 06/04/18 06/04/18 06/04/18 16:39 18:40 19:49 20:00 Temp 98.4 98.4 Pulse 94 Resp 16 B/P (MAP) 129/66 (87) Pulse Ox 92 92 92 O2 Delivery Room Air Room Air Room Air Room Air O2 Flow Rate 3.0 3.0 06/04/18 06/04/18 06/04/1825/19 20:40 21:03 21:33 22:12 Pulse Ox 94 92 92 92 O2 Delivery Room Air Room Air Room Air Room Air O2 Flow Rate 3.0 3.0 3.0 06/04/18 06/05/18 06/05/18 06/05/18 23:09 03:31 07:15 07:24 Temp 98.4 98.4 98.3 98.4 98.4 98.3 Pulse 93 83 78 Resp 16 16 20 B/P (MAP) 128/59 (82) 119/56 (77) 128/65 (86) Pulse Ox 92 90 98 94 O2 Delivery Room Air Room Air Room Air Room Air 06/05/18 06/05/18 08:08 08:09 Pulse 78 B/P (MAP) 128/65 O2 Delivery Room Air Intake and Output 06/04/18 06/04/18 06/05/18 15:00 23:00 07:00 Intake Total 440 ml 810 ml 490 ml Output Total 1500 ml 3300 ml 1200 ml Balance -1060 ml -2490 ml -710 ml SHAUN JOSE MD Jun 05, 2018 09:25
--- NOTE | 2018-06-05 09:28 | PDOC ---
PULMONARY PROGRESS NOTES Subjective BETTER TODAY NO INCREASE SOA OR COUGH Vitals Vital Signs Date Time Temp Pulse Resp B/P (MAP) Pulse Ox O2 Delivery O2 Flow Rate FiO2 06/05/18 08:09 78 128/65 06/05/18 08:08 Room Air 06/05/18 07:24 94 06/05/18 07:15 98.3 20 98.3 06/04/18 22:12 3.0 ROS: No Increase Cough General: Alert, No acute distress Lungs: Clear Cardiovascular: S1 Abdomen: Soft, Other (obese) Neuro Exam: Alert Extremities: Other (cellulitis left leg) Labs Laboratory Tests Test 06/03/18 10:09 06/03/18 11:54 06/03/18 17:04 06/03/18 18:35 Heparin Anti-Xa Act, Unfractionated 0.80 IU/mL (0.30-0.70) 0.53 IU/mL (0.30-0.70) Glucose (Fingerstick) 255 mg/dL (70-99) 138 mg/dL (70-99) Test 06/03/18 19:47 06/04/18 01:10 06/04/18 07:34 06/04/18 12:10 Glucose (Fingerstick) 178 mg/dL (70-99) 173 mg/dL (70-99) 160 mg/dL (70-99) Erythrocyte Sedimentation Rate 86 (0-15) Prothrombin Time 18.8 SEC (11.7-14.0) Prothromb Time International Ratio 1.6 (0.8-1.1) Heparin Anti-Xa Act, Unfractionated 0.55 IU/mL (0.30-0.70) Sodium Level 144 mmol/L (136-145) Potassium Level 4.7 mmol/L (3.5-5.1) Chloride Level 106 mmol/L (98-107) Carbon Dioxide Level 29 mmol/L (21-32) Anion Gap 9 (6-14) Blood Urea Nitrogen 14 mg/dL (8-26) Creatinine 1.0 mg/dL (0.7-1.3) Estimated GFR (Cockcroft-Gault) 76.7 Glucose Level 218 mg/dL (70-99) Calcium Level 9.1 mg/dL (8.5-10.1) Test 06/04/18 16:16 06/04/18 20:17 06/05/18 04:30 06/05/18 07:00 Glucose (Fingerstick) 140 mg/dL (70-99) 195 mg/dL (70-99) 212 mg/dL (70-99) White Blood Count 9.0 x10^3/uL (4.0-11.0) Red Blood Count 2.58 x10^6/uL (4.30-5.70) Hemoglobin 8.3 g/dL (13.0-17.5) Hematocrit 25.5 % (39.0-53.0) Mean Corpuscular Volume 99 fL (79-100) Mean Corpuscular Hemoglobin 32 pg (25-35) Mean Corpuscular Hemoglobin Concent 33 g/dL (31-37) Red Cell Distribution Width 17.7 % (11.5-14.5) Platelet Count 165 x10^3/uL (140-400) Neutrophils (%) (Auto) 48 % (31-73) Lymphocytes (%) (Auto) 45 % (24-48) Monocytes (%) (Auto) 6 % (0-9) Eosinophils (%) (Auto) 2 % (0-3) Basophils (%) (Auto) 0 % (0-3) Neutrophils # (Auto) 4.3 x10^3uL (1.8-7.7) Lymphocytes # (Auto) 4.0 x10^3/uL (1.0-4.8) Monocytes # (Auto) 0.5 x10^3/uL (0.0-1.1) Eosinophils # (Auto) 0.1 x10^3/uL (0.0-0.7) Basophils # (Auto) 0.0 x10^3/uL (0.0-0.2) Prothrombin Time 16.9 SEC (11.7-14.0) Prothromb Time International Ratio 1.4 (0.8-1.1) Heparin Anti-Xa Act, Unfractionated 0.74 IU/mL (0.30-0.70) Laboratory Tests Test 06/04/18 12:10 06/04/18 16:16 06/04/18 20:17 06/05/18 04:30 Glucose (Fingerstick) 160 mg/dL (70-99) 140 mg/dL (70-99) 195 mg/dL (70-99) White Blood Count 9.0 x10^3/uL (4.0-11.0) Red Blood Count 2.58 x10^6/uL (4.30-5.70) Hemoglobin 8.3 g/dL (13.0-17.5) Hematocrit 25.5 % (39.0-53.0) Mean Corpuscular Volume 99 fL (79-100) Mean Corpuscular Hemoglobin 32 pg (25-35) Mean Corpuscular Hemoglobin Concent 33 g/dL (31-37) Red Cell Distribution Width 17.7 % (11.5-14.5) Platelet Count 165 x10^3/uL (140-400) Neutrophils (%) (Auto) 48 % (31-73) Lymphocytes (%) (Auto) 45 % (24-48) Monocytes (%) (Auto) 6 % (0-9) Eosinophils (%) (Auto) 2 % (0-3) Basophils (%) (Auto) 0 % (0-3) Neutrophils # (Auto) 4.3 x10^3uL (1.8-7.7) Lymphocytes # (Auto) 4.0 x10^3/uL (1.0-4.8) Monocytes # (Auto) 0.5 x10^3/uL (0.0-1.1) Eosinophils # (Auto) 0.1 x10^3/uL (0.0-0.7) Basophils # (Auto) 0.0 x10^3/uL (0.0-0.2) Prothrombin Time 16.9 SEC (11.7-14.0) Prothromb Time International Ratio 1.4 (0.8-1.1) Heparin Anti-Xa Act, Unfractionated 0.74 IU/mL (0.30-0.70) Test 06/05/18 07:00 Glucose (Fingerstick) 212 mg/dL (70-99) Medications Active Scripts Medications Dose Route/Sig Max Daily Dose Days Date Category Preparation H Ointment (Phenyleph/Mineral Oil/Petrolat) 28 Gm Oint.appl 28 Gm RC QID 05/25/18 Reported Muscle Rub Cream (Methyl Salicylate/Menthol) 113 Gm Cream..g. 1 Gm TP TID 05/25/18 Reported Proair Hfa Inhaler (Albuterol Sulfate) 8.5 Gm Hfa.aer.ad 1 Puff INH PRN Q6HRS PRN 05/25/18 Reported Zyrtec (Cetirizine Hcl) 10 Mg Tablet 1 Tab PO DAILY 05/25/18 Reported Atorvastatin Calcium 40 Mg Tablet 1 Tab PO QHS 05/25/18 Reported Metformin Hcl 1,000 Mg Tablet 1,000 Mg PO BIDWMEALS 05/25/18 Reported Gabapentin (Gabapentin) 300 Mg Capsule 300 Mg PO DAILY 05/25/18 Reported Gabapentin 600 Mg Tablet 600 Mg PO DAILY08 05/25/18 Reported Flomax (Tamsulosin Hcl) 0.4 Mg Cap.er.24h 1 Cap PO DAILY 05/25/18 Reported Tylenol (Acetaminophen) 325 Mg Tablet 2 Tab PO TID PRN PRN 05/25/18 Reported Humulin R (Insulin Regular, Human) 100 Unit/1 Ml Vial 100 Unit IJ TIDAC 05/25/18 Reported Lisinopril 20 Mg Tablet 1 Tab PO DAILY 05/25/18 Reported Furosemide 20 Mg Tablet 1 Tab PO DAILY 05/25/18 Reported Coumadin (Warfarin Sodium) 4 Mg Tablet 1 Tab PO DAILY 05/25/18 Reported Actos (Pioglitazone Hcl) 45 Mg Tablet 1 Tab PO DAILY 05/25/18 Reported Novolin N (Nph, Human Insulin Isophane) 100 Unit/1 Ml Vial 20 Unit SQ BID 05/25/18 Reported Senna (Sennosides) 8.6 Mg Tablet 2 Mg PO BID 05/25/18 Reported Impression . 1. Multiple metastatic nodules in the lungs, likely related to underlying renal cell cancer with lung metastasis. He underwent right nephrectomy in 2011 for renal cancer. 2. History of chronic deep venous thrombosis since 1988. His venous Dopplers showing persistent deep venous thrombus in 2016 as well as from 02/2018. He will need lifelong anticoagulation. He likely has hypercoagulable state secondary to underlying malignancy. 3. Left lower extremity cellulitis, status post wound infection and wound VAC. Vascular Surgery following. 4. No significant history of tobacco use. 5. Hemoptysis IMPROVING 6. Anemia, needs to be closely followed up. Plan . CODEINE HELPED UP TO CHAIR PT/OT CONTINUE ANTIBX COUMADIN FOLLOW ONCO INPUT WOUND VAC SANDER MARAVILLA MD Jun 05, 2018 09:28
--- NOTE | 2018-06-05 09:49 | PDOC ---
Infectious Disease Note Subjective: Subjective pt cont to feel tired this am sleepy Postop Pain controlled No fevers ROS: ROS Negative except for above. Vital Signs: Vital Signs Vital Signs Date Time Temp Pulse Resp B/P (MAP) Pulse Ox O2 Delivery O2 Flow Rate FiO2 06/05/18 08:09 78 128/65 06/05/18 08:08 Room Air 06/05/18 07:24 94 06/05/18 07:15 98.3 20 98.3 06/04/18 22:12 3.0 Physical Exam: PHYSICAL EXAM GENERAL: Propped up in bed, sleepy HEENT: Oral cavity, pharynx pink and moist. cluster herpetic-type lesions about the mouth/nares - dry/clearing NECK: Supple. LUNGS: Clear to auscultation. HEART: S1 and S2. ABDOMEN: Obese, soft and nontender with bowel sounds present. EXTREMITIES: LLE edema and tenderness in the thighs, Lt lower ext wound vac in place + warmth and localized redness. SKIN: without rash NEUROLOGIC: Sleepy, responds appropriately Medications: Inpatient Meds: Current Medications Medications (Trade) Dose Ordered Sig/Katiana Start Time Stop Time Status Last Admin Dose Admin Acetaminophen (Tylenol) 650 mg TID PRN PRN 05/25/18 18:15 UNV Al Hydroxide/Mg Hydroxide (Mylanta Plus Xs) 30 ml PRN DAILY PRN 05/25/18 18:00 05/27/18 17:49 30 ML Albuterol Sulfate (Ventolin Neb Soln) 2.5 mg PRN Q6HRS PRN 05/26/18 10:15 Albuterol/ Ipratropium (Duoneb) 3 ml QID 05/31/18 20:00 06/05/18 07:19 3 ML Allopurinol (Zyloprim) 200 mg DAILY 05/26/18 11:00 05/26/18 16:09 DC Ascorbic Acid (Vitamin C) 500 mg DAILY 05/28/18 17:00 06/05/18 08:08 500 MG Atorvastatin Calcium (Lipitor) 40 mg QHS 05/26/18 21:00 06/04/18 21:00 40 MG Azithromycin (Zithromax) 250 mg DAILY 06/03/18 09:00 06/07/18 09:00 06/05/18 08:09 250 MG Bacitracin/ Polymyxin B Sulfate (Polysporin) 1 ana TID 05/27/18 14:00 06/05/18 08:10 1 ANA Cefazolin Sodium 1 gm/Dextrose 50 ml @ 100 mls/hr Q8HRS 05/30/18 14:00 06/05/18 06:06 100 MLS/HR Cefazolin Sodium/ Dextrose 50 ml @ 100 mls/hr Q8HRS 05/30/18 14:00 05/30/18 14:00 DC Cetirizine HCl (ZyrTEC) 10 mg DAILY 05/26/18 10:30 06/05/18 08:09 10 MG Clonidine HCl (Catapres) 0.1 mg PRN Q6HRS PRN 05/25/18 18:00 Dextrose (Dextrose 50%-Water Syringe) 12.5 gm PRN Q15MIN PRN 05/26/18 13:00 Diphenhydramine HCl (Benadryl) 25 mg PRN Q4HRS PRN 05/25/18 18:00 Docusate Sodium (Colace) 100 mg PRN BID PRN 05/25/18 18:00 Enoxaparin Sodium (Lovenox 40mg Syringe) 40 mg DAILY 05/26/18 09:00 05/26/18 16:30 DC 05/26/18 09:39 40 MG Fentanyl Citrate (Fentanyl 2ml Vial) 100 mcg STK-MED ONCE 05/30/18 07:15 05/30/18 07:16 DC Furosemide (Lasix) 20 mg DAILY 05/26/18 09:00 05/27/18 13:28 DC Gabapentin (Neurontin) 900 mg HS 05/27/18 21:00 06/04/18 21:00 900 MG Guaifenesin (Robitussin) 200 mg PRN Q4HRS PRN 05/25/18 18:00 Guaifenesin/ Codeine Phosphate (Robitussin Ac) 5 ml PRN Q6HRS PRN 06/04/18 18:30 06/04/18 19:33 5 ML Heparin Sodium (Porcine) (Heparin Sodium) 1,700 unit PRN Q6HRS PRN 05/28/18 09:00 06/02/18 12:54 DC 06/02/18 06:17 1,700 UNIT Heparin Sodium/ Dextrose 500 ml @ 0 mls/hr CONT PRN 05/28/18 09:00 06/05/18 02:40 43.3 MLS/HR Hydromorphone HCl (Dilaudid) 0.5 mg PRN Q10MIN PRN 05/30/18 07:00 05/30/18 15:00 DC Info (Anti-Coagulation Monitoring By Pharmacy) 1 each PRN DAILY PRN 05/27/18 11:30 06/03/18 12:43 1 EACH Info (CONTRAST GIVEN -- Rx MONITORING) 1 each PRN DAILY PRN 06/01/18 18:00 06/03/18 17:59 DC Insulin Glargine (Lantus) 20 units BID 05/25/18 21:00 06/05/18 08:20 20 UNITS Insulin Human Lispro (HumaLOG) 0-7 UNITS TIDWMEALS 05/26/18 17:00 06/05/18 08:19 4 UNITS Iohexol (Omnipaque 300 Mg/ml) 60 ml 1X ONCE 06/01/18 18:00 06/01/18 18:01 DC 06/01/18 22:03 60 ML Lactobacillus Rhamnosus (Culturelle) 1 cap BID 05/27/18 21:00 06/05/18 08:08 1 CAP Lidocaine HCl (Lidocaine Pf 2% Vial) 5 ml STK-MED ONCE 05/30/18 08:43 05/30/18 08:44 DC Lidocaine HCl (Xylocaine-Mpf 1% 2ml Vial) 2 ml PRN 1X PRN 05/30/18 07:00 05/30/18 15:00 DC Linezolid/Dextrose 300 ml @ 300 mls/hr Q12HR 05/26/18 21:00 05/30/18 11:12 DC 05/30/18 11:04 300 MLS/HR Lisinopril (Prinivil) 20 mg DAILY 05/26/18 09:00 06/05/18 08:09 20 MG Lorazepam (Ativan) 0.5 mg PRN Q4HRS PRN 05/25/18 18:00 05/26/18 04:30 0.5 MG Metformin HCl (Glucophage) 1,000 mg BIDWMEALS 06/04/18 08:00 06/05/18 08:09 1,000 MG Morphine Sulfate (Morphine Sulfate) 1 mg PRN Q10MIN PRN 05/30/18 07:00 05/30/18 15:00 DC 05/30/18 09:29 1 MG Multivitamins (Thera M Plus) 1 tab DAILY 05/28/18 17:00 06/05/18 08:09 1 TAB Ondansetron HCl (Zofran) 4 mg STK-MED ONCE 05/30/18 08:42 05/30/18 08:43 DC Oxycodone/ Acetaminophen (Percocet 5/325) 1 tab PRN Q4HRS PRN 05/27/18 14:30 06/05/18 08:08 1 TAB Pioglitazone HCl (Actos) 45 mg DAILY 05/26/18 09:00 06/05/18 08:09 45 MG Piperacillin Sod/ Tazobactam Sod 3.375 gm/Sodium Chloride 50 ml @ 100 mls/hr Q6HRS 05/26/18 00:00 UNV Prochlorperazine Edisylate (Compazine) 5 mg PACU PRN PRN 05/30/18 07:00 05/30/18 15:00 DC Propofol 20 ml @ As Directed STK-MED ONCE 05/30/18 08:43 05/30/18 08:44 DC Ringer's Solution 1,000 ml @ 30 mls/hr Q24H 05/30/18 07:00 05/30/18 11:36 DC Sennosides (Senna) 17.2 mg BID 05/25/18 21:00 06/05/18 08:09 17.2 MG Sevoflurane (Ultane) 30 ml STK-MED ONCE 05/30/18 08:44 05/30/18 08:45 DC Sodium Chloride 1,000 ml @ 100 mls/hr Q10H 05/25/18 17:54 06/02/18 12:54 DC 06/02/18 05:50 100 MLS/HR Tamsulosin HCl (Flomax) 0.4 mg DAILY 05/26/18 10:30 06/05/18 08:10 0.4 MG Vancomycin HCl (Vanco Per Pharmacy) 1 each PRN DAILY PRN 05/25/18 18:45 05/26/18 18:24 DC 05/26/18 16:08 1 EACH Vancomycin HCl (Vancomycin Trough Level) 1 each 1X ONCE 05/27/18 08:30 05/27/18 08:30 DC Vancomycin HCl 1.5 gm/Sodium Chloride 500 ml @ 250 mls/hr Q12H 05/26/18 09:00 05/26/18 18:24 DC 05/26/18 09:39 250 MLS/HR Vancomycin HCl 2 gm/Sodium Chloride 500 ml @ 250 mls/hr 1X ONCE 05/25/18 19:00 05/25/18 20:59 DC 05/25/18 22:34 250 MLS/HR Warfarin Sodium (Coumadin Per Pharmacy) 1 each PRN DAILY PRN 05/31/18 14:15 06/04/18 14:23 1 EACH Warfarin Sodium (Coumadin Per Physician) 1 each PRN DAILY PRN 05/25/18 20:45 05/27/18 11:16 DC 05/26/18 16:15 1 EACH Warfarin Sodium (Coumadin) 7.5 mg 1X WARF ONCE 06/04/18 16:00 06/04/18 16:01 DC 06/04/18 16:39 7.5 MG Zolpidem Tartrate (Ambien) 5 mg PRN QHS PRN 05/25/18 18:00 Labs: Lab Laboratory Tests Test 06/04/18 12:10 06/04/18 16:16 06/04/18 20:17 06/05/18 04:30 Glucose (Fingerstick) 160 mg/dL (70-99) 140 mg/dL (70-99) 195 mg/dL (70-99) White Blood Count 9.0 x10^3/uL (4.0-11.0) Red Blood Count 2.58 x10^6/uL (4.30-5.70) Hemoglobin 8.3 g/dL (13.0-17.5) Hematocrit 25.5 % (39.0-53.0) Mean Corpuscular Volume 99 fL (79-100) Mean Corpuscular Hemoglobin 32 pg (25-35) Mean Corpuscular Hemoglobin Concent 33 g/dL (31-37) Red Cell Distribution Width 17.7 % (11.5-14.5) Platelet Count 165 x10^3/uL (140-400) Neutrophils (%) (Auto) 48 % (31-73) Lymphocytes (%) (Auto) 45 % (24-48) Monocytes (%) (Auto) 6 % (0-9) Eosinophils (%) (Auto) 2 % (0-3) Basophils (%) (Auto) 0 % (0-3) Neutrophils # (Auto) 4.3 x10^3uL (1.8-7.7) Lymphocytes # (Auto) 4.0 x10^3/uL (1.0-4.8) Monocytes # (Auto) 0.5 x10^3/uL (0.0-1.1) Eosinophils # (Auto) 0.1 x10^3/uL (0.0-0.7) Basophils # (Auto) 0.0 x10^3/uL (0.0-0.2) Prothrombin Time 16.9 SEC (11.7-14.0) Prothromb Time International Ratio 1.4 (0.8-1.1) Heparin Anti-Xa Act, Unfractionated 0.74 IU/mL (0.30-0.70) Test 06/05/18 07:00 Glucose (Fingerstick) 212 mg/dL (70-99) Objective: Assessment: Cellulitis of left lower extremity,,improving Nonhealing wounds of LLE since 2017,, now with eschar. s/p I and D taken down to fascia on 05/30/18. 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 Tomlinson in [place], was on Sutent per patient -CT chest:Innumerable bilateral lung masses, right adrenal mass: expansile right posterior ninth rib mass. Solitary kidney Incarceration MRSA screen positive Plan: Plan of Care Continue cefazolin,,, soon to change to po keflex for d/c Azithromycin added per pulmonary Probiotics wound vac per vascular surgery BC MARCELLE Gipson MD Jun 05, 2018 09:49
[2018-06-05 10:42] LABS: % BANDS 7 % (0-9); % BASOS 1 % (0-3); % EOS 1 % (0-5); % LYMPHS 52 % (24-48); % MONOS 1 % (0-10); % SEGS 38 % (35-66); ANISOCYTOSIS SLIGHT; PLT ESTIMATE ADEQUATE (ADEQUATE)
[2018-06-05 10:53] VITALS: BP 128/61
[2018-06-05] MEDS: ANTI-COAG MONITOR BY PHARMACY. MC PRN (14:25)
--- NOTE | 2018-06-05 14:58 | NUR ---
Pharmacy Warfarin Dosing Note S:Pharmacy consulted to assist with anticoagulation therapy started with target INR: 2 -3 O:HELADIO GAO is a 57 year old M with Recurrent VTE LABS: Last INR: 1.4 Last HGB: 8.3 Last HCT: 25.5 Last PLT: 165 Last dose of 7.5 mg given on 06/04/18 at 1600 Previous Regimen: 4 MG/D Vitamin K given: N Drug Interaction Changes: Same Interacting Drug Ongoing Drug Interactions: ZITHROMAX A:INR of 1.4 is below desired range. Target range for this patient is: 2 -3 P: Warfarin dose: 9mg Today at 1600. Bridge Therapy: Heparin Therapeutic CONT Next INR due tomorrow. Pharmacy anticoagulation service will continue to follow. John Watson [facility], 06/05/18 [id number]
[2018-06-05 15:19] VITALS: BP 113/69
[2018-06-05] MEDS ORDERED: WARFARIN 3 MG TABLET. PO ONE ×2 (16:00)
[2018-06-05] MEDS: fentaNYL PF VIAL 100 MCG/2 ML VIAL IV PRN (19:17)
[2018-06-05 19:58] VITALS: BP 116/53
[2018-06-05] MEDS: guaiFENesin/CODEINE 100mg/10mg 5 ML LIQUID PO PRN (21:14)
[2018-06-05] MEDS: ATORVASTATIN CALCIUM 40 MG TABLET. PO SCH (21:15)
[2018-06-05 23:05] VITALS: BP 110/60
[2018-06-06] MEDS: oxyCODONE/APAP 5/325 1 TAB TABLET PO PRN ×2 (01:05→05:32)
[2018-06-06] MEDS: fentaNYL PF VIAL 100 MCG/2 ML VIAL IV PRN ×5 (01:06→23:57)
[2018-06-06 01:07] LABS: BASO % 0 % (0-3); EOS # 0.1 x10^3/uL (0.0-0.7); EOS % 2 % (0-3); HEMATOCRIT 25.9 % (39.0-53.0); HEMOGLOBIN 8.3 g/dL (13.0-17.5); LYMPH # 4.1 x10^3/uL (1.0-4.8); LYMPH % 49 % (24-48); MEAN CORPUSCULAR HEMOGLOBIN 32 pg (25-35); MEAN CORPUSCULAR HGB CONC 32 g/dL (31-37); MEAN CORPUSCULAR VOLUME 98 fL (79-100); MONO # 0.5 x10^3/uL (0.0-1.1); MONO % 6 % (0-9); NEUT # 3.6 x10^3uL (1.8-7.7); NEUT % 44 % (31-73); PLATELET COUNT 148 x10^3/uL (140-400); RED BLOOD COUNT 2.64 x10^6/uL (4.30-5.70); RED CELL DISTRIBUTION WIDTH 18.3 % (11.5-14.5); WHITE BLOOD COUNT 8.3 x10^3/uL (4.0-11.0)
[2018-06-06 01:30] LABS: PROTHROMBIN TIME PATIENT 17.9 SEC (11.7-14.0)
[2018-06-06] MEDS: HEPARIN 25,000UTS/500ML PREMIX 500 ML IV PRN ×2 (02:21→14:59)
[2018-06-06 03:02] VITALS: BP 105/56
[2018-06-06] MEDS: ceFAZolin SODIUM 1 GM in IV DEXTROSE 5% 50 ML IV SCH ×3 (05:33→21:49)
[2018-06-06 07:25] VITALS: BP 99/48
[2018-06-06] MEDS: ASCORBIC ACID 500 MG TABLET PO SCH (08:57)
[2018-06-06] MEDS: LACTOBACILLUS RHAMNOSUS GG 1 CAPSULE. PO SCH ×2 (08:57→20:46)
[2018-06-06] MEDS: PIOGLITAZONE 15 MG TABLET. PO SCH (08:57)
[2018-06-06] MEDS: metFORMIN 500 MG TABLET PO SCH ×2 (08:57→15:32)
[2018-06-06] MEDS: AZITHROMYCIN 250 MG TABLET. PO SCH (08:57)
[2018-06-06] MEDS: LISINOPRIL 20 MG TABLET PO SCH (08:57)
[2018-06-06] MEDS: GABAPENTIN 300 MG CAPSULE. PO SCH ×2 (08:57→20:46)
[2018-06-06] MEDS: CETIRIZINE HCL 10 MG TABLET. PO SCH (08:58)
[2018-06-06] MEDS: BACITRACIN/POLYMYXIN B TOPICAL OINT 15GM TUBE. TP SCH ×3 (08:58→20:48)
[2018-06-06] MEDS: TAMSULOSIN 0.4 MG CAP.ER.24H. PO SCH (08:58)
[2018-06-06] MEDS: SENNOSIDES 8.6 MG TABLET PO SCH ×2 (08:58→20:46)
[2018-06-06] MEDS: MULTIVITAMIN with MINERAL TABLET. PO SCH (08:58)
[2018-06-06] MEDS: INSULIN GLARGINE 300 UNITS/3 ML INSULN.PEN. SQ SCH ×2 (09:04→21:54)
[2018-06-06] MEDS: INSULIN LISPRO 300 UNITS/3 ML INSULN.PEN. SQ SCH ×6 (09:04→17:01)
--- NOTE | 2018-06-06 09:27 | PDOC ---
PULMONARY PROGRESS NOTES Subjective BETTER TODAY NO INCREASE SOA OR COUGH Vitals Vital Signs Date Time Temp Pulse Resp B/P (MAP) Pulse Ox O2 Delivery O2 Flow Rate FiO2 06/06/18 08:57 78 99/48 06/06/18 08:00 Room Air 06/06/18 07:25 98.4 20 93 98.4 ROS: No Increase Cough General: Alert, No acute distress Lungs: Clear Cardiovascular: S1 Abdomen: Soft, Other (obese) Neuro Exam: Alert Extremities: Other (cellulitis left leg) Labs Laboratory Tests Test 06/04/18 12:10 06/04/18 16:16 06/04/18 20:17 06/05/18 04:30 Glucose (Fingerstick) 160 mg/dL (70-99) 140 mg/dL (70-99) 195 mg/dL (70-99) White Blood Count 9.0 x10^3/uL (4.0-11.0) Red Blood Count 2.58 x10^6/uL (4.30-5.70) Hemoglobin 8.3 g/dL (13.0-17.5) Hematocrit 25.5 % (39.0-53.0) Mean Corpuscular Volume 99 fL (79-100) Mean Corpuscular Hemoglobin 32 pg (25-35) Mean Corpuscular Hemoglobin Concent 33 g/dL (31-37) Red Cell Distribution Width 17.7 % (11.5-14.5) Platelet Count 165 x10^3/uL (140-400) Neutrophils (%) (Auto) 48 % (31-73) Lymphocytes (%) (Auto) 45 % (24-48) Monocytes (%) (Auto) 6 % (0-9) Eosinophils (%) (Auto) 2 % (0-3) Basophils (%) (Auto) 0 % (0-3) Neutrophils # (Auto) 4.3 x10^3uL (1.8-7.7) Lymphocytes # (Auto) 4.0 x10^3/uL (1.0-4.8) Monocytes # (Auto) 0.5 x10^3/uL (0.0-1.1) Eosinophils # (Auto) 0.1 x10^3/uL (0.0-0.7) Basophils # (Auto) 0.0 x10^3/uL (0.0-0.2) Segmented Neutrophils % 38 % (35-66) Band Neutrophils % 7 % (0-9) Lymphocytes % 52 % (24-48) Monocytes % 1 % (0-10) Eosinophils % 1 % (0-5) Basophils % 1 % (0-3) Platelet Estimate Adequate (ADEQUATE) Anisocytosis Slight Prothrombin Time 16.9 SEC (11.7-14.0) Prothromb Time International Ratio 1.4 (0.8-1.1) Heparin Anti-Xa Act, Unfractionated 0.74 IU/mL (0.30-0.70) Test 06/05/18 07:00 06/05/18 11:34 06/05/18 11:50 06/05/18 16:58 Glucose (Fingerstick) 212 mg/dL (70-99) 289 mg/dL (70-99) 181 mg/dL (70-99) Heparin Anti-Xa Act, Unfractionated 0.75 IU/mL (0.30-0.70) Test 06/05/18 18:10 06/05/18 20:53 06/06/18 00:15 06/06/18 06:10 Heparin Anti-Xa Act, Unfractionated 0.71 IU/mL (0.30-0.70) 0.47 IU/mL (0.30-0.70) 0.51 IU/mL (0.30-0.70) Glucose (Fingerstick) 195 mg/dL (70-99) White Blood Count 8.3 x10^3/uL (4.0-11.0) Red Blood Count 2.64 x10^6/uL (4.30-5.70) Hemoglobin 8.3 g/dL (13.0-17.5) Hematocrit 25.9 % (39.0-53.0) Mean Corpuscular Volume 98 fL (79-100) Mean Corpuscular Hemoglobin 32 pg (25-35) Mean Corpuscular Hemoglobin Concent 32 g/dL (31-37) Red Cell Distribution Width 18.3 % (11.5-14.5) Platelet Count 148 x10^3/uL (140-400) Neutrophils (%) (Auto) 44 % (31-73) Lymphocytes (%) (Auto) 49 % (24-48) Monocytes (%) (Auto) 6 % (0-9) Eosinophils (%) (Auto) 2 % (0-3) Basophils (%) (Auto) 0 % (0-3) Neutrophils # (Auto) 3.6 x10^3uL (1.8-7.7) Lymphocytes # (Auto) 4.1 x10^3/uL (1.0-4.8) Monocytes # (Auto) 0.5 x10^3/uL (0.0-1.1) Eosinophils # (Auto) 0.1 x10^3/uL (0.0-0.7) Basophils # (Auto) 0.0 x10^3/uL (0.0-0.2) Erythrocyte Sedimentation Rate 90 (0-15) Prothrombin Time 17.9 SEC (11.7-14.0) Prothromb Time International Ratio 1.5 (0.8-1.1) Test 06/06/18 07:16 Glucose (Fingerstick) 174 mg/dL (70-99) Laboratory Tests Test 06/05/18 11:34 06/05/18 11:50 06/05/18 16:58 06/05/18 18:10 Glucose (Fingerstick) 289 mg/dL (70-99) 181 mg/dL (70-99) Heparin Anti-Xa Act, Unfractionated 0.75 IU/mL (0.30-0.70) 0.71 IU/mL (0.30-0.70) Test 06/05/18 20:53 06/06/18 00:15 06/06/18 06:10 06/06/18 07:16 Glucose (Fingerstick) 195 mg/dL (70-99) 174 mg/dL (70-99) White Blood Count 8.3 x10^3/uL (4.0-11.0) Red Blood Count 2.64 x10^6/uL (4.30-5.70) Hemoglobin 8.3 g/dL (13.0-17.5) Hematocrit 25.9 % (39.0-53.0) Mean Corpuscular Volume 98 fL (79-100) Mean Corpuscular Hemoglobin 32 pg (25-35) Mean Corpuscular Hemoglobin Concent 32 g/dL (31-37) Red Cell Distribution Width 18.3 % (11.5-14.5) Platelet Count 148 x10^3/uL (140-400) Neutrophils (%) (Auto) 44 % (31-73) Lymphocytes (%) (Auto) 49 % (24-48) Monocytes (%) (Auto) 6 % (0-9) Eosinophils (%) (Auto) 2 % (0-3) Basophils (%) (Auto) 0 % (0-3) Neutrophils # (Auto) 3.6 x10^3uL (1.8-7.7) Lymphocytes # (Auto) 4.1 x10^3/uL (1.0-4.8) Monocytes # (Auto) 0.5 x10^3/uL (0.0-1.1) Eosinophils # (Auto) 0.1 x10^3/uL (0.0-0.7) Basophils # (Auto) 0.0 x10^3/uL (0.0-0.2) Erythrocyte Sedimentation Rate 90 (0-15) Prothrombin Time 17.9 SEC (11.7-14.0) Prothromb Time International Ratio 1.5 (0.8-1.1) Heparin Anti-Xa Act, Unfractionated 0.47 IU/mL (0.30-0.70) 0.51 IU/mL (0.30-0.70) Medications Active Scripts Medications Dose Route/Sig Max Daily Dose Days Date Category Preparation H Ointment (Phenyleph/Mineral Oil/Petrolat) 28 Gm Oint.appl 28 Gm RC QID 05/25/18 Reported Muscle Rub Cream (Methyl Salicylate/Menthol) 113 Gm Cream..g. 1 Gm TP TID 05/25/18 Reported Proair Hfa Inhaler (Albuterol Sulfate) 8.5 Gm Hfa.aer.ad 1 Puff INH PRN Q6HRS PRN 05/25/18 Reported Zyrtec (Cetirizine Hcl) 10 Mg Tablet 1 Tab PO DAILY 05/25/18 Reported Atorvastatin Calcium 40 Mg Tablet 1 Tab PO QHS 05/25/18 Reported Metformin Hcl 1,000 Mg Tablet 1,000 Mg PO BIDWMEALS 05/25/18 Reported Gabapentin (Gabapentin) 300 Mg Capsule 300 Mg PO DAILY 05/25/18 Reported Gabapentin 600 Mg Tablet 600 Mg PO DAILY08 05/25/18 Reported Flomax (Tamsulosin Hcl) 0.4 Mg Cap.er.24h 1 Cap PO DAILY 05/25/18 Reported Tylenol (Acetaminophen) 325 Mg Tablet 2 Tab PO TID PRN PRN 05/25/18 Reported Humulin R (Insulin Regular, Human) 100 Unit/1 Ml Vial 100 Unit IJ TIDAC 05/25/18 Reported Lisinopril 20 Mg Tablet 1 Tab PO DAILY 05/25/18 Reported Furosemide 20 Mg Tablet 1 Tab PO DAILY 05/25/18 Reported Coumadin (Warfarin Sodium) 4 Mg Tablet 1 Tab PO DAILY 05/25/18 Reported Actos (Pioglitazone Hcl) 45 Mg Tablet 1 Tab PO DAILY 05/25/18 Reported Novolin N (Nph, Human Insulin Isophane) 100 Unit/1 Ml Vial 20 Unit SQ BID 05/25/18 Reported Senna (Sennosides) 8.6 Mg Tablet 2 Mg PO BID 05/25/18 Reported Impression . 1. Multiple metastatic nodules in the lungs, likely related to underlying renal cell cancer with lung metastasis. He underwent right nephrectomy in 2011 for renal cancer. 2. History of chronic deep venous thrombosis since 1988. His venous Dopplers showing persistent deep venous thrombus in 2016 as well as from 02/2018. He will need lifelong anticoagulation. He likely has hypercoagulable state secondary to underlying malignancy. 3. Left lower extremity cellulitis, status post wound infection and wound VAC. Vascular Surgery following. 4. No significant history of tobacco use. 5. Hemoptysis IMPROVING 6. Anemia, needs to be closely followed up. Plan . RESP STATUS IS COMPENSATED WILL CONTINUE THE SAME UP TO CHAIR PT/OT CONTINUE ANTIBX COUMADIN FOLLOW ONCO INPUT WOUND VAC SANDER MARAVILLA MD Jun 06, 2018 09:27
[2018-06-06] MEDS: IPRATRPIUM/ALBUTEROL 0.5/2.5MG 3 ML NEBU. NEB SCH ×4 (09:40→21:19)
[2018-06-06] MEDS ORDERED: fentaNYL PF VIAL 100 MCG/2 ML VIAL IV ONE (10:30)
--- NOTE | 2018-06-06 10:36 | PDOC ---
PROGRESS NOTES Chief Complaint Chief Complaint 1. marked complicated acute cellulitis left lower leg, indwelling left wound VAC 2. Occlusive thrombus left femoral vein-possibly remnant of previous DVT on that same leg 3. diabetes 2, mod control 4. hypertension 5. OBESITY, BMI 38 6. [employer] prisoner low security 7. mod protein, caloric malnutrition 8. 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 ThromboCytopenia, platelets 136 11. INmate 12. Hemoptysis, thrombocytopenia, on heparin gtt 13. SUBTherapeutic INR History of Present Illness History of Present Illness Left inner thigh pain and induration continues Right rib hurts, ninth-he hasn't epistatic lesion there Has gotten 36 doses of Percocet 5 LEft leg signif post inflamm hyperpigmentation INR is 1.5 with some increasing hemoptysis, platelets on the low side - heparin gtt running Patient came from shelter, minimum security and will be released July 2019 He does not have family or family does not know how sick he is ESR 90, was 86 few days ago Vital signs good Wound VAC on left but still significant post inflammatory hyperpigmentation and pain PLAN: Increase Percocet to 10 Start Lidoderm patch to ninth rib Fentanyl now then every 2 when necessary Callback heme onc- plan? Last seen by Dr. Óscar Diaz on the weekend and was advised to follow-up with his cancer doctor in [facility] Consult radiation oncology-role of radiating the lungs or right 9th rib because of pain? Reach out to vascular surgery Dr. Valdez did the I and D of sorts earlier during the admission. call re the worsening left leg swelling pain seen both clinically and on CAT scan Discussed with patient my plan and cota VAC change qMWF currently Vitals Vitals Vital Signs Date Time Temp Pulse Resp B/P (MAP) Pulse Ox O2 Delivery O2 Flow Rate FiO2 06/06/18 09:40 96 Room Air 06/06/18 08:57 78 99/48 06/06/18 07:25 98.4 20 98.4 Physical Exam Physical Exam GENERAL: Propped up in bed, sleepy HEENT: Oral cavity, pharynx pink and moist. cluster herpetic-type lesions about the mouth/nares - dry/clearing NECK: Supple. LUNGS: Clear to auscultation. HEART: S1 and S2. ABDOMEN: Obese, soft and nontender with bowel sounds present. EXTREMITIES: LLE edema and tenderness in the thighs, Lt lower ext wound vac in place + warmth and localized redness. SKIN: without rash NEUROLOGIC: Sleepy, responds appropriately General: Alert, Oriented X3, Cooperative Heart: Regular rate Lungs: Clear Abdomen: Normal bowel sounds, No hepatosplenomegaly, Other (obese) Extremities: No clubbing, No cyanosis, No edema, Other (has wound vac left lee ) Skin: Other (as above, also almost petechial like rase right cheek which he says was due to med reaction) Labs LABS Laboratory Tests Test 06/05/18 11:34 06/05/18 11:50 06/05/18 16:58 06/05/18 18:10 Glucose (Fingerstick) 289 mg/dL (70-99) 181 mg/dL (70-99) Heparin Anti-Xa Act, Unfractionated 0.75 IU/mL (0.30-0.70) 0.71 IU/mL (0.30-0.70) Test 06/05/18 20:53 06/06/18 00:15 06/06/18 06:10 06/06/18 07:16 Glucose (Fingerstick) 195 mg/dL (70-99) 174 mg/dL (70-99) White Blood Count 8.3 x10^3/uL (4.0-11.0) Red Blood Count 2.64 x10^6/uL (4.30-5.70) Hemoglobin 8.3 g/dL (13.0-17.5) Hematocrit 25.9 % (39.0-53.0) Mean Corpuscular Volume 98 fL (79-100) Mean Corpuscular Hemoglobin 32 pg (25-35) Mean Corpuscular Hemoglobin Concent 32 g/dL (31-37) Red Cell Distribution Width 18.3 % (11.5-14.5) Platelet Count 148 x10^3/uL (140-400) Neutrophils (%) (Auto) 44 % (31-73) Lymphocytes (%) (Auto) 49 % (24-48) Monocytes (%) (Auto) 6 % (0-9) Eosinophils (%) (Auto) 2 % (0-3) Basophils (%) (Auto) 0 % (0-3) Neutrophils # (Auto) 3.6 x10^3uL (1.8-7.7) Lymphocytes # (Auto) 4.1 x10^3/uL (1.0-4.8) Monocytes # (Auto) 0.5 x10^3/uL (0.0-1.1) Eosinophils # (Auto) 0.1 x10^3/uL (0.0-0.7) Basophils # (Auto) 0.0 x10^3/uL (0.0-0.2) Erythrocyte Sedimentation Rate 90 (0-15) Prothrombin Time 17.9 SEC (11.7-14.0) Prothromb Time International Ratio 1.5 (0.8-1.1) Heparin Anti-Xa Act, Unfractionated 0.47 IU/mL (0.30-0.70) 0.51 IU/mL (0.30-0.70) Review of Systems Review of Systems Right rib pain, left leg inner thigh pain SOA today The rest of ROS negative Comment Review of Relevant I have reviewed the following items anjana (where applicable) has been applied. Labs Laboratory Tests Test 06/04/18 12:10 06/04/18 16:16 06/04/18 20:17 06/05/18 04:30 Glucose (Fingerstick) 160 mg/dL (70-99) 140 mg/dL (70-99) 195 mg/dL (70-99) White Blood Count 9.0 x10^3/uL (4.0-11.0) Red Blood Count 2.58 x10^6/uL (4.30-5.70) Hemoglobin 8.3 g/dL (13.0-17.5) Hematocrit 25.5 % (39.0-53.0) Mean Corpuscular Volume 99 fL (79-100) Mean Corpuscular Hemoglobin 32 pg (25-35) Mean Corpuscular Hemoglobin Concent 33 g/dL (31-37) Red Cell Distribution Width 17.7 % (11.5-14.5) Platelet Count 165 x10^3/uL (140-400) Neutrophils (%) (Auto) 48 % (31-73) Lymphocytes (%) (Auto) 45 % (24-48) Monocytes (%) (Auto) 6 % (0-9) Eosinophils (%) (Auto) 2 % (0-3) Basophils (%) (Auto) 0 % (0-3) Neutrophils # (Auto) 4.3 x10^3uL (1.8-7.7) Lymphocytes # (Auto) 4.0 x10^3/uL (1.0-4.8) Monocytes # (Auto) 0.5 x10^3/uL (0.0-1.1) Eosinophils # (Auto) 0.1 x10^3/uL (0.0-0.7) Basophils # (Auto) 0.0 x10^3/uL (0.0-0.2) Segmented Neutrophils % 38 % (35-66) Band Neutrophils % 7 % (0-9) Lymphocytes % 52 % (24-48) Monocytes % 1 % (0-10) Eosinophils % 1 % (0-5) Basophils % 1 % (0-3) Platelet Estimate Adequate (ADEQUATE) Anisocytosis Slight Prothrombin Time 16.9 SEC (11.7-14.0) Prothromb Time International Ratio 1.4 (0.8-1.1) Heparin Anti-Xa Act, Unfractionated 0.74 IU/mL (0.30-0.70) Test 06/05/18 07:00 06/05/18 11:34 06/05/18 11:50 06/05/18 16:58 Glucose (Fingerstick) 212 mg/dL (70-99) 289 mg/dL (70-99) 181 mg/dL (70-99) Heparin Anti-Xa Act, Unfractionated 0.75 IU/mL (0.30-0.70) Test 06/05/18 18:10 06/05/18 20:53 06/06/18 00:15 06/06/18 06:10 Heparin Anti-Xa Act, Unfractionated 0.71 IU/mL (0.30-0.70) 0.47 IU/mL (0.30-0.70) 0.51 IU/mL (0.30-0.70) Glucose (Fingerstick) 195 mg/dL (70-99) White Blood Count 8.3 x10^3/uL (4.0-11.0) Red Blood Count 2.64 x10^6/uL (4.30-5.70) Hemoglobin 8.3 g/dL (13.0-17.5) Hematocrit 25.9 % (39.0-53.0) Mean Corpuscular Volume 98 fL (79-100) Mean Corpuscular Hemoglobin 32 pg (25-35) Mean Corpuscular Hemoglobin Concent 32 g/dL (31-37) Red Cell Distribution Width 18.3 % (11.5-14.5) Platelet Count 148 x10^3/uL (140-400) Neutrophils (%) (Auto) 44 % (31-73) Lymphocytes (%) (Auto) 49 % (24-48) Monocytes (%) (Auto) 6 % (0-9) Eosinophils (%) (Auto) 2 % (0-3) Basophils (%) (Auto) 0 % (0-3) Neutrophils # (Auto) 3.6 x10^3uL (1.8-7.7) Lymphocytes # (Auto) 4.1 x10^3/uL (1.0-4.8) Monocytes # (Auto) 0.5 x10^3/uL (0.0-1.1) Eosinophils # (Auto) 0.1 x10^3/uL (0.0-0.7) Basophils # (Auto) 0.0 x10^3/uL (0.0-0.2) Erythrocyte Sedimentation Rate 90 (0-15) Prothrombin Time 17.9 SEC (11.7-14.0) Prothromb Time International Ratio 1.5 (0.8-1.1) Test 06/06/18 07:16 Glucose (Fingerstick) 174 mg/dL (70-99) Laboratory Tests Test 06/05/18 11:34 06/05/18 11:50 06/05/18 16:58 06/05/18 18:10 Glucose (Fingerstick) 289 mg/dL (70-99) 181 mg/dL (70-99) Heparin Anti-Xa Act, Unfractionated 0.75 IU/mL (0.30-0.70) 0.71 IU/mL (0.30-0.70) Test 06/05/18 20:53 06/06/18 00:15 06/06/18 06:10 06/06/18 07:16 Glucose (Fingerstick) 195 mg/dL (70-99) 174 mg/dL (70-99) White Blood Count 8.3 x10^3/uL (4.0-11.0) Red Blood Count 2.64 x10^6/uL (4.30-5.70) Hemoglobin 8.3 g/dL (13.0-17.5) Hematocrit 25.9 % (39.0-53.0) Mean Corpuscular Volume 98 fL (79-100) Mean Corpuscular Hemoglobin 32 pg (25-35) Mean Corpuscular Hemoglobin Concent 32 g/dL (31-37) Red Cell Distribution Width 18.3 % (11.5-14.5) Platelet Count 148 x10^3/uL (140-400) Neutrophils (%) (Auto) 44 % (31-73) Lymphocytes (%) (Auto) 49 % (24-48) Monocytes (%) (Auto) 6 % (0-9) Eosinophils (%) (Auto) 2 % (0-3) Basophils (%) (Auto) 0 % (0-3) Neutrophils # (Auto) 3.6 x10^3uL (1.8-7.7) Lymphocytes # (Auto) 4.1 x10^3/uL (1.0-4.8) Monocytes # (Auto) 0.5 x10^3/uL (0.0-1.1) Eosinophils # (Auto) 0.1 x10^3/uL (0.0-0.7) Basophils # (Auto) 0.0 x10^3/uL (0.0-0.2) Erythrocyte Sedimentation Rate 90 (0-15) Prothrombin Time 17.9 SEC (11.7-14.0) Prothromb Time International Ratio 1.5 (0.8-1.1) Heparin Anti-Xa Act, Unfractionated 0.47 IU/mL (0.30-0.70) 0.51 IU/mL (0.30-0.70) Microbiology 05/25/18 Blood Culture - Final, Complete NO GROWTH AFTER 5 DAYS 05/26/18 Urine Culture - Final, Complete 05/26/18 Urine Culture Result 1 (LUCY) - Final, Complete 05/26/18 Anaerobic/Aerobic Culture - Final, Complete 05/26/18 Anaerobic Culture Result 1 (LUCY) - Final, Complete 05/26/18 Aerobic Culture - Final, Complete 05/26/18 Aerobic Culture Result 1 (LUCY) - Final, Complete 05/26/18 Antimicrobic Susceptibility - Final, Complete 05/26/18 Gram Stain - Final, Complete 05/26/18 Gram Stain Result 1 (LUCY) - Final, Complete 05/26/18 Gram Stain Result 2 (LUCY) - Final, Complete Medications Current Medications Sodium Chloride 1,000 ml @ 100 mls/hr Q10H IV Last administered on 06/02/18at 05:50; Start 05/25/18 at 17:54; Stop 06/02/18 at 12:54; Status DC Ondansetron HCl (Zofran) 4 mg PRN Q4HRS PRN IV NAUSEA/VOMITING; Start 05/25/18 at 18:00 Zolpidem Tartrate (Ambien) 5 mg PRN QHS PRN PO INSOMNIA; Start 05/25/18 at 18: 00 Acetaminophen (Tylenol) 650 mg PRN Q4HRS PRN PO TEMP OVER 100.4F OR MILD PAIN Last administered on 05/26/18at 22:46; Start 05/25/18 at 18:00 Al Hydroxide/Mg Hydroxide (Mylanta Plus Xs) 30 ml PRN DAILY PRN PO HEARTBURN / GAS Last administered on 05/27/18at 17:49; Start 05/25/18 at 18:00 Clonidine HCl (Catapres) 0.1 mg PRN Q6HRS PRN PO SBP>160 OR DBP>90; Start 05/25 at 18:00 Diphenhydramine HCl (Benadryl) 25 mg PRN Q4HRS PRN IVP ITCHING; Start 05/25/18 at 18:00 Docusate Sodium (Colace) 100 mg PRN BID PRN PO CONSTIPATION; Start 05/25/18 at 18:00 Albuterol/ Ipratropium (Duoneb) 3 ml Q4HRS NEB Last administered on 05/31/18at 16:05; Start 05/25/18 at 20:00; Stop 05/31/18 at 18:30; Status DC Guaifenesin (Robitussin) 200 mg PRN Q4HRS PRN PO COUGH 1ST CHOICE; Start at 18:00 Lorazepam (Ativan) 0.5 mg PRN Q4HRS PRN PO ANXIETY / AGITATION Last administered on 05/26/18 04:30; Start 05/25/18 at 18:00 Enoxaparin Sodium (Lovenox 40mg Syringe) 40 mg DAILY SQ Last administered on at 09:39; Start 05/26/18 at 09:00; Stop 05/26/18 at 16:30; Status DC Piperacillin Sod/ Tazobactam Sod 3.375 gm/Sodium Chloride 50 ml @ 100 mls/hr Q6HRS IV Last administered on 05/30/18at 06:06; Start 05/25/18 at 18:10; Stop at 11:12; Status DC Acetaminophen (Tylenol) 650 mg TID PRN PRN PO PAIN; Start 05/25/18 at 18:15; Status UNV Furosemide (Lasix) 20 mg DAILY PO ; Start 05/26/18 at 09:00; Stop 05/27/18 at 13 :28; Status DC Lisinopril (Prinivil) 20 mg DAILY PO Last administered on 06/05/18at 08:09; Start 05/26/18 at 09:00 Insulin Glargine (Lantus) 20 units BID SQ Last administered on 06/06/18 09:04 ; Start 05/25/18 at 21:00 Pioglitazone HCl (Actos) 45 mg DAILY PO Last administered on 06/06/18 08:57; Start 05/26/18 at 09:00 Sennosides (Senna) 17.2 mg BID PO Last administered on 06/06/18 08:58; Start 05/25/18 at 21:00 Warfarin Sodium (Coumadin) 4 mg DAILY16 PO Last administered on 05/26/18 18:06 ; Start 05/25/18 at 21:00; Stop 05/27/18 at 11:16; Status DC Piperacillin Sod/ Tazobactam Sod 3.375 gm/Sodium Chloride 50 ml @ 100 mls/hr Q6HRS IV ; Start 05/26/18 at 00:00; Status UNV Vancomycin HCl (Vanco Per Pharmacy) 1 each PRN DAILY PRN MC SEE COMMENTS Last administered on 05/26/18at 16:08; Start 05/25/18 at 18:45; Stop 05/26/18 at 18:24 ; Status DC Vancomycin HCl 2 gm/Sodium Chloride 500 ml @ 250 mls/hr 1X ONCE IV Last administered on 05/25/18at 22:34; Start 05/25/18 at 19:00; Stop 05/25/18 at 20:59 ; Status DC Warfarin Sodium (Coumadin Per Physician) 1 each PRN DAILY PRN MC SEE COMMENTS Last administered on 05/26/18at 16:15; Start 05/25/18 at 20:45; Stop 05/27/18 at 11:16; Status DC Vancomycin HCl 1.5 gm/Sodium Chloride 500 ml @ 250 mls/hr Q12H IV Last administered on 05/26/18at 09:39; Start 05/26/18 at 09:00; Stop 05/26/18 at 18:24 ; Status DC Vancomycin HCl (Vancomycin Trough Level) 1 each 1X ONCE MC ; Start 05/27/18 at 08:30; Stop 05/27/18 at 08:30; Status DC Fentanyl Citrate (Fentanyl 2ml Vial) 50 mcg PRN Q3HRS PRN IV MODERATE TO SEVERE PAIN Last administered on 06/06/18at 05:33; Start 05/25/18 at 22:00 Albuterol Sulfate (Ventolin Neb Soln) 2.5 mg PRN Q6HRS PRN INH SHORTNESS OF BREATH; Start 05/26/18 at 10:15 Allopurinol (Zyloprim) 200 mg DAILY PO ; Start 05/26/18 at 11:00; Stop 05/26/18 at 16:09; Status DC Atorvastatin Calcium (Lipitor) 40 mg QHS PO Last administered on 06/05/18at 21: 15; Start 05/26/18 at 21:00 Cetirizine HCl (ZyrTEC) 10 mg DAILY PO Last administered on 06/06/18at 08:58; Start 05/26/18 at 10:30 Tamsulosin HCl (Flomax) 0.4 mg DAILY PO Last administered on 06/06/18at 08:58; Start 05/26/18 at 10:30 Gabapentin (Neurontin) 600 mg BID PO Last administered on 05/27/18at 08:10; Start 05/26/18 at 10:15; Stop 05/27/18 at 13:29; Status DC Insulin Human Lispro (HumaLOG) 4 units TIDWMEALS SQ Last administered on 09:04; Start 05/26/18 at 17:00 Insulin Human Lispro (HumaLOG) 0-7 UNITS TIDWMEALS SQ Last administered on 06/06 09:05; Start 05/26/18 at 17:00 Dextrose (Dextrose 50%-Water Syringe) 12.5 gm PRN Q15MIN PRN IV SEE COMMENTS; Start 05/26/18 at 13:00 Metformin HCl (Glucophage) 1,000 mg BIDWMEALS PO Last administered on 16:59; Start 05/26/18 at 17:00; Stop 06/01/18 at 17:54; Status DC Linezolid/Dextrose 300 ml @ 300 mls/hr Q12HR IV Last administered on 11:04; Start 05/26/18 at 21:00; Stop 05/30/18 at 11:12; Status DC Heparin Sodium/ Dextrose 500 ml @ 0 mls/hr CONT PRN IV SEE I/O RECORD Last administered on 06/06/18at 02:21; Start 05/28/18 at 09:00 Heparin Sodium (Porcine) (Heparin Sodium) 3,400 unit PRN Q6HRS PRN IV FOR UFH LEVEL LESS THAN 0.2; Start 05/28/18 at 09:00 Heparin Sodium (Porcine) (Heparin Sodium) 1,700 unit PRN Q6HRS PRN IV FOR UFH LEVEL 0.2 - 0.29 Last administered on 06/02/18 06:17; Start 05/28/18 at 09:00; Stop 06/02/18 at 12:54; Status DC Info (Anti-Coagulation Monitoring By Pharmacy) 1 each PRN DAILY PRN MC SEE COMMENTS Last administered on 06/05/18 14:25; Start 05/27/18 at 11:30 Lactobacillus Rhamnosus (Culturelle) 1 cap BID PO Last administered on 08:57; Start 05/27/18 at 21:00 Bacitracin/ Polymyxin B Sulfate (Polysporin) 1 ana TID TP Last administered on 06/06/18 08:58; Start 05/27/18 at 14:00 Gabapentin (Neurontin) 600 mg DAILY08 PO Last administered on 06/06/18 08:57; Start 05/28/18 at 08:00 Gabapentin (Neurontin) 900 mg HS PO Last administered on 06/05/18at 21:15; Start 05/27/18 at 21:00 Oxycodone/ Acetaminophen (Percocet 5/325) 1 tab PRN Q4HRS PRN PO MODERATE TO SEVERE PAIN Last administered on 06/06/18 05:32; Start 05/27/18 at 14:30 Multivitamins (Thera M Plus) 1 tab DAILY PO Last administered on 06/06/18 08: 58; Start 05/28/18 at 17:00 Ascorbic Acid (Vitamin C) 500 mg DAILY PO Last administered on 06/06/18 08:57 ; Start 05/28/18 at 17:00 Ondansetron HCl (Zofran) 4 mg PRN Q6HRS PRN IV NAUSEA/VOMITING; Start 05/30/18 at 07:00; Stop 05/30/18 at 15:00; Status DC Morphine Sulfate (Morphine Sulfate) 1 mg PRN Q10MIN PRN IV SEVERE PAIN Last administered on 05/30/18at 09:29; Start 05/30/18 at 07:00; Stop 05/30/18 at 15:00 ; Status DC Ringer's Solution 1,000 ml @ 30 mls/hr Q24H IV ; Start 05/30/18 at 07:00; Stop 05/30/18 at 11:36; Status DC Lidocaine HCl (Xylocaine-Mpf 1% 2ml Vial) 2 ml PRN 1X PRN ID PRIOR TO IV START ; Start 05/30/18 at 07:00; Stop 05/30/18 at 15:00; Status DC Hydromorphone HCl (Dilaudid) 0.5 mg PRN Q10MIN PRN IV SEV PAIN, Second choice; Start 05/30/18 at 07:00; Stop 05/30/18 at 15:00; Status DC Prochlorperazine Edisylate (Compazine) 5 mg PACU PRN PRN IV NAUSEA, MRX1; Start 05/30/18 at 07:00; Stop 05/30/18 at 15:00; Status DC Albuterol/ Ipratropium (Duoneb) 3 ml 1X ONCE NEB Last administered on at 07:10; Start 05/30/18 at 07:15; Stop 05/30/18 at 07:16; Status DC Fentanyl Citrate (Fentanyl 2ml Vial) 100 mcg STK-MED ONCE .ROUTE ; Start at 07:15; Stop 05/30/18 at 07:16; Status DC Ondansetron HCl (Zofran) 4 mg STK-MED ONCE .ROUTE ; Start 05/30/18 at 08:42; Stop 05/30/18 at 08:43; Status DC Propofol 20 ml @ As Directed STK-MED ONCE IV ; Start 05/30/18 at 08:43; Stop at 08:44; Status DC Lidocaine HCl (Lidocaine Pf 2% Vial) 5 ml STK-MED ONCE .ROUTE ; Start 05/30/18 at 08:43; Stop 05/30/18 at 08:44; Status DC Sevoflurane (Ultane) 30 ml STK-MED ONCE IH ; Start 05/30/18 at 08:44; Stop 05/30 at 08:45; Status DC Cefazolin Sodium/ Dextrose 50 ml @ 100 mls/hr Q8HRS IV ; Start 05/30/18 at 14: 00; Stop 05/30/18 at 14:00; Status DC Cefazolin Sodium 50 ml @ 100 mls/hr Q8HRS IV ; Start 05/30/18 at 14:00; Status UNV Cefazolin Sodium 1 gm/Dextrose 50 ml @ 100 mls/hr Q8HRS IV Last administered on 06/06/18at 05:33; Start 05/30/18 at 14:00 Warfarin Sodium (Coumadin Per Pharmacy) 1 each PRN DAILY PRN MC SEE COMMENTS Last administered on 06/05/18at 15:02; Start 05/31/18 at 14:15 Warfarin Sodium (Coumadin) 5 mg DAILY16 PO Last administered on 05/31/18at 16:54 ; Start 05/31/18 at 16:00; Stop 06/01/18 at 12:58; Status DC Albuterol/ Ipratropium (Duoneb) 3 ml QID NEB Last administered on 06/06/18at 09: 40; Start 05/31/18 at 20:00 Warfarin Sodium (Coumadin) 6 mg 1X WARF ONCE PO Last administered on at 17:47; Start 06/01/18 at 16:00; Stop 06/01/18 at 16:01; Status DC Iohexol (Omnipaque 300 Mg/ml) 60 ml 1X ONCE IV Last administered on 06/01/18at 22:03; Start 06/01/18 at 18:00; Stop 06/01/18 at 18:01; Status DC Metformin HCl (Glucophage) 1,000 mg BIDWMEALS PO Last administered on at 08:57; Start 06/04/18 at 08:00 Info (CONTRAST GIVEN -- Rx MONITORING) 1 each PRN DAILY PRN MC SEE COMMENTS; Start 06/01/18 at 18:00; Stop 06/03/18 at 17:59; Status DC Azithromycin (Zithromax) 500 mg 1X ONCE PO Last administered on 06/02/18at 12: 18; Start 06/02/18 at 10:30; Stop 06/02/18 at 10:31; Status DC Azithromycin (Zithromax) 250 mg DAILY PO Last administered on 06/06/18at 08:57; Start 06/03/18 at 09:00; Stop 06/07/18 at 09:00 Warfarin Sodium (Coumadin) 7.5 mg 1X WARF ONCE PO Last administered on at 15:59; Start 06/02/18 at 16:00; Stop 06/02/18 at 16:01; Status DC Warfarin Sodium (Coumadin) 7.5 mg 1X WARF ONCE PO ; Start 06/03/18 at 16:00; Stop 06/03/18 at 16:01; Status DC Warfarin Sodium (Coumadin) 7.5 mg 1X WARF ONCE PO Last administered on at 16:39; Start 06/04/18 at 16:00; Stop 06/04/18 at 16:01; Status DC Guaifenesin/ Codeine Phosphate (Robitussin Ac) 5 ml PRN Q6HRS PRN PO COUGH 2ND CHOICE Last administered on 06/05/18at 21:14; Start 06/04/18 at 18:30 Warfarin Sodium (Coumadin) 9 mg 1X WARF ONCE PO ; Start 06/05/18 at 16:00; Stop 06/05/18 at 16:01; Status Cancel Warfarin Sodium (Coumadin) 9 mg 1X WARF ONCE PO Last administered on at 17:06; Start 06/05/18 at 16:00; Stop 06/05/18 at 16:01; Status DC Active Scripts Active Reported Preparation H Ointment (Phenyleph/Mineral Oil/Petrolat) 28 Gm Oint.appl 28 Gm RC QID Muscle Rub Cream (Methyl Salicylate/Menthol) 113 Gm Cream..g. 1 Gm TP TID Proair Hfa Inhaler (Albuterol Sulfate) 8.5 Gm Hfa.aer.ad 1 Puff INH PRN Q6HRS PRN Zyrtec (Cetirizine Hcl) 10 Mg Tablet 1 Tab PO DAILY Atorvastatin Calcium 40 Mg Tablet 1 Tab PO QHS Metformin Hcl 1,000 Mg Tablet 1,000 Mg PO BIDWMEALS Gabapentin (Gabapentin) 300 Mg Capsule 300 Mg PO DAILY Gabapentin 600 Mg Tablet 600 Mg PO DAILY08 Flomax (Tamsulosin Hcl) 0.4 Mg Cap.er.24h 1 Cap PO DAILY Tylenol (Acetaminophen) 325 Mg Tablet 2 Tab PO TID PRN PRN Humulin R (Insulin Regular, Human) 100 Unit/1 Ml Vial 100 Unit IJ TIDAC Lisinopril 20 Mg Tablet 1 Tab PO DAILY Furosemide 20 Mg Tablet 1 Tab PO DAILY Coumadin (Warfarin Sodium) 4 Mg Tablet 1 Tab PO DAILY Actos (Pioglitazone Hcl) 45 Mg Tablet 1 Tab PO DAILY Novolin N (Nph, Human Insulin Isophane) 100 Unit/1 Ml Vial 20 Unit SQ BID Senna (Sennosides) 8.6 Mg Tablet 2 Mg PO BID Vitals/I & O Vital Sign - Last 24 Hours 06/05/18 06/05/18 06/05/18 06/05/18 10:53 11:20 12:08 15:19 Temp 98.3 97.9 98.3 97.9 Pulse 81 72 Resp 18 20 B/P (MAP) 128/61 (83) 113/69 (84) Pulse Ox 97 93 96 O2 Delivery Room Air Room Air Room Air Room Air 06/05/18 06/05/18 06/05/18 06/05/18 16:50 17:06 19:16 19:17 O2 Delivery Room Air Room Air Room Air Room Air 06/05/18 06/05/18 06/05/18 06/05/18 19:58 20:00 21:14 23:05 Temp 98.1 98.1 98.1 98.1 Pulse 94 91 Resp 18 16 B/P (MAP) 116/53 (74) 110/60 (77) Pulse Ox 92 90 O2 Delivery Room Air Room Air Room Air Room Air 06/06/18 06/06/18 06/06/18 06/06/18 01:05 01:06 03:02 05:32 Temp 97.6 97.6 Pulse 83 Resp 16 B/P (MAP) 105/56 (72) Pulse Ox 90 O2 Delivery Room Air Room Air Room Air Room Air 06/06/18 06/06/18 06/06/18 06/06/18 05:33 06:03 06:32 07:25 Temp 98.4 98.4 Pulse 78 Resp 20 B/P (MAP) 99/48 (65) Pulse Ox 93 O2 Delivery Room Air Room Air Room Air Room Air 06/06/18 06/06/18 06/06/18 08:00 08:57 09:40 Pulse 78 B/P (MAP) 99/48 Pulse Ox 96 O2 Delivery Room Air Room Air Intake and Output 06/05/18 06/05/18 06/06/18 15:00 23:00 07:00 Intake Total 840 ml 979 ml 710 ml Output Total 1400 ml 2250 ml 800 ml Balance -560 ml -1271 ml -90 ml SHAUN JOSE MD Jun 06, 2018 10:36
--- NOTE | 2018-06-06 10:47 | PDOC ---
Infectious Disease Note Subjective: Subjective pt cont to have pain in the LLE, had some blood in sputum earlier today sleepy Pain controlled No fevers ROS: ROS Negative except for above. Vital Signs: Vital Signs Vital Signs Date Time Temp Pulse Resp B/P (MAP) Pulse Ox O2 Delivery O2 Flow Rate FiO2 06/06/18 09:40 96 Room Air 06/06/18 08:57 78 99/48 06/06/18 07:25 98.4 20 98.4 Physical Exam: PHYSICAL EXAM GENERAL: Propped up in bed, sleepy HEENT: Oral cavity, pharynx pink and moist. cluster herpetic-type lesions about the mouth/nares - dry/clearing NECK: Supple. LUNGS: Clear to auscultation. HEART: S1 and S2. ABDOMEN: Obese, soft and nontender with bowel sounds present. EXTREMITIES: LLE edema and tenderness in the thighs, Lt lower ext wound vac in place + warmth and localized redness. SKIN: without rash NEUROLOGIC: Sleepy, responds appropriately Medications: Inpatient Meds: Current Medications Medications (Trade) Dose Ordered Sig/Katiana Start Time Stop Time Status Last Admin Dose Admin Acetaminophen (Tylenol) 650 mg TID PRN PRN 05/25/18 18:15 UNV Al Hydroxide/Mg Hydroxide (Mylanta Plus Xs) 30 ml PRN DAILY PRN 05/25/18 18:00 05/27/18 17:49 30 ML Albuterol Sulfate (Ventolin Neb Soln) 2.5 mg PRN Q6HRS PRN 05/26/18 10:15 Albuterol/ Ipratropium (Duoneb) 3 ml QID 05/31/18 20:00 06/06/18 09:40 3 ML Allopurinol (Zyloprim) 200 mg DAILY 05/26/18 11:00 05/26/18 16:09 DC Ascorbic Acid (Vitamin C) 500 mg DAILY 05/28/18 17:00 06/06/18 08:57 500 MG Atorvastatin Calcium (Lipitor) 40 mg QHS 05/26/18 21:00 06/05/18 21:15 40 MG Azithromycin (Zithromax) 250 mg DAILY 06/03/18 09:00 06/07/18 09:00 06/06/18 08:57 250 MG Bacitracin/ Polymyxin B Sulfate (Polysporin) 1 ana TID 05/27/18 14:00 06/06/18 08:58 1 ANA Cefazolin Sodium 1 gm/Dextrose 50 ml @ 100 mls/hr Q8HRS 05/30/18 14:00 06/06/18 05:33 100 MLS/HR Cefazolin Sodium/ Dextrose 50 ml @ 100 mls/hr Q8HRS 05/30/18 14:00 05/30/18 14:00 DC Cetirizine HCl (ZyrTEC) 10 mg DAILY 05/26/18 10:30 06/06/18 08:58 10 MG Clonidine HCl (Catapres) 0.1 mg PRN Q6HRS PRN 05/25/18 18:00 Dextrose (Dextrose 50%-Water Syringe) 12.5 gm PRN Q15MIN PRN 05/26/18 13:00 Diphenhydramine HCl (Benadryl) 25 mg PRN Q4HRS PRN 05/25/18 18:00 Docusate Sodium (Colace) 100 mg PRN BID PRN 05/25/18 18:00 Enoxaparin Sodium (Lovenox 40mg Syringe) 40 mg DAILY 05/26/18 09:00 05/26/18 16:30 DC 05/26/18 09:39 40 MG Fentanyl Citrate (Fentanyl 2ml Vial) 50 mcg PRN Q2HR PRN 06/06/18 10:30 Furosemide (Lasix) 20 mg DAILY 05/26/18 09:00 05/27/18 13:28 DC Gabapentin (Neurontin) 900 mg HS 05/27/18 21:00 06/05/18 21:15 900 MG Guaifenesin (Robitussin) 200 mg PRN Q4HRS PRN 05/25/18 18:00 Guaifenesin/ Codeine Phosphate (Robitussin Ac) 5 ml PRN Q6HRS PRN 06/04/18 18:30 06/05/18 21:14 5 ML Heparin Sodium (Porcine) (Heparin Sodium) 1,700 unit PRN Q6HRS PRN 05/28/18 09:00 06/02/18 12:54 DC 06/02/18 06:17 1,700 UNIT Heparin Sodium/ Dextrose 500 ml @ 0 mls/hr CONT PRN 05/28/18 09:00 06/06/18 02:21 36.5 MLS/HR Hydromorphone HCl (Dilaudid) 0.5 mg PRN Q10MIN PRN 05/30/18 07:00 05/30/18 15:00 DC Info (Anti-Coagulation Monitoring By Pharmacy) 1 each PRN DAILY PRN 05/27/18 11:30 06/05/18 14:25 1 EACH Info (CONTRAST GIVEN -- Rx MONITORING) 1 each PRN DAILY PRN 06/01/18 18:00 06/03/18 17:59 DC Insulin Glargine (Lantus) 20 units BID 05/25/18 21:00 06/06/18 09:04 20 UNITS Insulin Human Lispro (HumaLOG) 0-7 UNITS TIDWMEALS 05/26/18 17:00 06/06/18 09:05 3 UNITS Iohexol (Omnipaque 300 Mg/ml) 60 ml 1X ONCE 06/01/18 18:00 06/01/18 18:01 DC 06/01/18 22:03 60 ML Lactobacillus Rhamnosus (Culturelle) 1 cap BID 05/27/18 21:00 06/06/18 08:57 1 CAP Lidocaine (Lidoderm) 1 patch DAILY 06/06/18 10:30 Lidocaine HCl (Lidocaine Pf 2% Vial) 5 ml STK-MED ONCE 05/30/18 08:43 05/30/18 08:44 DC Lidocaine HCl (Xylocaine-Mpf 1% 2ml Vial) 2 ml PRN 1X PRN 05/30/18 07:00 05/30/18 15:00 DC Linezolid/Dextrose 300 ml @ 300 mls/hr Q12HR 05/26/18 21:00 05/30/18 11:12 DC 05/30/18 11:04 300 MLS/HR Lisinopril (Prinivil) 20 mg DAILY 05/26/18 09:00 06/05/18 08:09 20 MG Lorazepam (Ativan) 0.5 mg PRN Q4HRS PRN 05/25/18 18:00 05/26/18 04:30 0.5 MG Metformin HCl (Glucophage) 1,000 mg BIDWMEALS 06/04/18 08:00 06/06/18 08:57 1,000 MG Miscellaneous (Lidoderm Patch Removal) 1 ea QHS 06/06/18 21:00 Morphine Sulfate (Morphine Sulfate) 1 mg PRN Q10MIN PRN 05/30/18 07:00 05/30/18 15:00 DC 05/30/18 09:29 1 MG Multivitamins (Thera M Plus) 1 tab DAILY 05/28/18 17:00 06/06/18 08:58 1 TAB Ondansetron HCl (Zofran) 4 mg STK-MED ONCE 05/30/18 08:42 05/30/18 08:43 DC Oxycodone/ Acetaminophen (Percocet 10/325) 1 tab PRN Q4HRS PRN 06/06/18 10:30 Oxycodone/ Acetaminophen (Percocet 5/325) 1 tab PRN Q4HRS PRN 05/27/18 14:30 06/06/18 10:30 DC 06/06/18 05:32 1 TAB Pioglitazone HCl (Actos) 45 mg DAILY 05/26/18 09:00 06/06/18 08:57 45 MG Piperacillin Sod/ Tazobactam Sod 3.375 gm/Sodium Chloride 50 ml @ 100 mls/hr Q6HRS 05/26/18 00:00 UNV Prochlorperazine Edisylate (Compazine) 5 mg PACU PRN PRN 05/30/18 07:00 05/30/18 15:00 DC Propofol 20 ml @ As Directed STK-MED ONCE 05/30/18 08:43 05/30/18 08:44 DC Ringer's Solution 1,000 ml @ 30 mls/hr Q24H 05/30/18 07:00 05/30/18 11:36 DC Sennosides (Senna) 17.2 mg BID 05/25/18 21:00 06/06/18 08:58 17.2 MG Sevoflurane (Ultane) 30 ml STK-MED ONCE 05/30/18 08:44 05/30/18 08:45 DC Sodium Chloride 1,000 ml @ 100 mls/hr Q10H 05/25/18 17:54 06/02/18 12:54 DC 06/02/18 05:50 100 MLS/HR Tamsulosin HCl (Flomax) 0.4 mg DAILY 05/26/18 10:30 06/06/18 08:58 0.4 MG Vancomycin HCl (Vanco Per Pharmacy) 1 each PRN DAILY PRN 05/25/18 18:45 05/26/18 18:24 DC 05/26/18 16:08 1 EACH Vancomycin HCl (Vancomycin Trough Level) 1 each 1X ONCE 05/27/18 08:30 05/27/18 08:30 DC Vancomycin HCl 1.5 gm/Sodium Chloride 500 ml @ 250 mls/hr Q12H 05/26/18 09:00 05/26/18 18:24 DC 05/26/18 09:39 250 MLS/HR Vancomycin HCl 2 gm/Sodium Chloride 500 ml @ 250 mls/hr 1X ONCE 05/25/18 19:00 05/25/18 20:59 DC 05/25/18 22:34 250 MLS/HR Warfarin Sodium (Coumadin Per Pharmacy) 1 each PRN DAILY PRN 05/31/18 14:15 06/05/18 15:02 1 EACH Warfarin Sodium (Coumadin Per Physician) 1 each PRN DAILY PRN 05/25/18 20:45 05/27/18 11:16 DC 05/26/18 16:15 1 EACH Warfarin Sodium (Coumadin) 9 mg 1X WARF ONCE 06/05/18 16:00 06/05/18 16:01 DC 06/05/18 17:06 9 MG Zolpidem Tartrate (Ambien) 5 mg PRN QHS PRN 05/25/18 18:00 Labs: Lab Laboratory Tests Test 06/05/18 11:34 06/05/18 11:50 06/05/18 16:58 06/05/18 18:10 Glucose (Fingerstick) 289 mg/dL (70-99) 181 mg/dL (70-99) Heparin Anti-Xa Act, Unfractionated 0.75 IU/mL (0.30-0.70) 0.71 IU/mL (0.30-0.70) Test 06/05/18 20:53 06/06/18 00:15 06/06/18 06:10 06/06/18 07:16 Glucose (Fingerstick) 195 mg/dL (70-99) 174 mg/dL (70-99) White Blood Count 8.3 x10^3/uL (4.0-11.0) Red Blood Count 2.64 x10^6/uL (4.30-5.70) Hemoglobin 8.3 g/dL (13.0-17.5) Hematocrit 25.9 % (39.0-53.0) Mean Corpuscular Volume 98 fL (79-100) Mean Corpuscular Hemoglobin 32 pg (25-35) Mean Corpuscular Hemoglobin Concent 32 g/dL (31-37) Red Cell Distribution Width 18.3 % (11.5-14.5) Platelet Count 148 x10^3/uL (140-400) Neutrophils (%) (Auto) 44 % (31-73) Lymphocytes (%) (Auto) 49 % (24-48) Monocytes (%) (Auto) 6 % (0-9) Eosinophils (%) (Auto) 2 % (0-3) Basophils (%) (Auto) 0 % (0-3) Neutrophils # (Auto) 3.6 x10^3uL (1.8-7.7) Lymphocytes # (Auto) 4.1 x10^3/uL (1.0-4.8) Monocytes # (Auto) 0.5 x10^3/uL (0.0-1.1) Eosinophils # (Auto) 0.1 x10^3/uL (0.0-0.7) Basophils # (Auto) 0.0 x10^3/uL (0.0-0.2) Erythrocyte Sedimentation Rate 90 (0-15) Prothrombin Time 17.9 SEC (11.7-14.0) Prothromb Time International Ratio 1.5 (0.8-1.1) Heparin Anti-Xa Act, Unfractionated 0.47 IU/mL (0.30-0.70) 0.51 IU/mL (0.30-0.70) Objective: Assessment: Cellulitis of left lower extremity, Nonhealing wounds of LLE since 2017,, now with eschar. s/p I and D taken down to fascia on 05/30/18. MSSA -h/o MRSA and enterococcus penicillin sensitive -followed weekly by [facility] wound care center Lt thigh swelling,redness and tenderness, CT noted, vascular following Fever,,better Diabetes with peripheral neuropathy PVD h/o DVT on warfarin therapy ;Venous u/s no acute changes of DVt,Old clot h/o kidney cancer with mets to lung -followed by Dr. Tomlinson in [place], was on Sutent per patient -CT chest:Innumerable bilateral lung masses, right adrenal mass: expansile right posterior ninth rib mass. Solitary kidney Incarceration MRSA screen positive Plan: Plan of Care Continue cefazolin, Azithromycin added per pulmonary Probiotics wound vac per vascular surgery BC MARCELLE Gipson MD Jun 06, 2018 10:47
[2018-06-06] MEDS: LIDOCAINE (700MG/PATCH) PATCH. TD SCH (10:48)
[2018-06-06 11:25] VITALS: BP 104/57
--- NOTE | 2018-06-06 14:57 | PDOC ---
Provider Note Provider Note 57 yo man with metastatic renal cell carcinoma of right kidney s/p palliative nephrectomy 2011. He had palliative Sutent with response and now has disease progression with symptomatic progression in the right flank region due to a met in right posterior lateral 9th rib. He also has a hx of DVTs and now has a venous insufficiencyulcer in the distal left leg. Had debridement and wound vac placement. CT chest: bilateral multiple lung nodules c/w mets, bilateral effusions, right kidney absent. Solitary bulky destructive met in post lateral right 9th rib. Impression; Progressive met renal cell carcinoma. Palliative radiation to the right 9th rib is appropriate. Will simulate tomorrow 06/07/2018 with treatment to follow. VALERIE GOMES MD Jun 06, 2018 14:57
[2018-06-06 15:30] VITALS: BP 106/58
[2018-06-06] MEDS: oxyCODONE/APAP 10/325 1 TAB TABLET PO PRN ×2 (15:33→20:46)
[2018-06-06] MEDS ORDERED: WARFARIN 3 MG TABLET. PO ONE (16:00)
--- NOTE | 2018-06-06 16:00 | NUR ---
Wound care: Patient seen per wound care follow up. See wound assessment. Wound cleansed and assessed. Wound appears to have deteriorated since vac change on Monday. Wound vac on hold at this time. Vascular reconsulted. Wound redressed with moistened Hydrofera Blue, xeroform gauze, ABD and tape. Wound care will follow up with patient after vascular sees patient. No other wounds noted at this time. Spoke with RN regarding POC. Call light in reach and bed lowered.
[2018-06-06] MEDS: ANTI-COAG MONITOR BY PHARMACY. MC PRN (17:38)
--- NOTE | 2018-06-06 17:40 | NUR ---
Pharmacy Warfarin Dosing Note S: Pharmacy consulted to assist with anticoagulation therapy O: HELADIO GAO is a 57 year old M with Recurrent VTE LABS: Last INR: 1.5 Last HGB: 8.3 Last HCT: 25.9 Last PLT: 148 Last dose of 9MG given on 06/05/18 at 1706 Vitamin K given: N Ongoing Drug Interactions: ZITHROMAX A:INR of 1.5 is below desired range. Target range for this patient is: 2 -3 P: Warfarin dose: 9mg Today at 1600 Bridge Therapy: Heparin Therapeutic CONT Next INR due tomorrow Pharmacy anticoagulation service will continue to follow. Nancie Oro RPH, 06/06/18 [id number]
[2018-06-06 19:53] VITALS: BP 118/54
[2018-06-06] MEDS: ATORVASTATIN CALCIUM 40 MG TABLET. PO SCH (20:46)
[2018-06-06] MEDS: PATCH REMOVAL. MC SCH (21:00)
[2018-06-06 23:56] VITALS: BP 113/61
[2018-06-07] MEDS: oxyCODONE/APAP 10/325 1 TAB TABLET PO PRN ×5 (02:18→20:58)
[2018-06-07] MEDS: fentaNYL PF VIAL 100 MCG/2 ML VIAL IV PRN ×5 (02:19→19:02)
[2018-06-07 03:46] VITALS: BP 109/60
--- NOTE | 2018-06-07 05:08 | CONS ---
DATE OF CONSULTATION: 06/06/2018 REFERRING DOCTOR: Dr. Marilyn Mike. DIAGNOSIS: Stage IV renal cell carcinoma of the right kidney status post nephrectomy in [place], [place] in 2011. At that time, he had an extensive disease involving lung and bladder. He then was on systemic treatment with Sutent with responding or stable disease. In 03/2018, he was told he had disease progression. He now is admitted for left lower extremity, recurrent deep venous thrombosis, cellulitis and skin ulcers. He also has symptomatic disease progression in his right 9th rib causing flank pain. We were asked to see him regarding palliative radiation therapy in his care. ICD-10: C64.1, J91.0, C79.51, C78.00. In 2011, he noted a bulging region of his right flank associated with gross hematuria. He was found to have a right renal mass with metastatic disease by his report with involvement of bladder and lung. He underwent palliative nephrectomy at that time in [place], [place]. Details of this treatment record are not available. He was then on Sutent from that time through the end of 2017. He then had disease progression in the lung. He has a prior history of deep venous thrombosis and was on chronic Coumadin, which was stopped. He had recurrent DVT involving the left leg and developed venous insufficiency ulcers. He has undergone debridement and wound VAC placement here on 05/30/2018. He complains of significant 10 on a 10 scale pain of right flank pain. He is on topical patch and oral medications with some improvement. He has no other significant sites of pain prior to his recent illness affecting his leg. 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 He has had variable appetite, stable weight. No headache, nausea, vomiting. PAST MEDICAL HISTORY: Recurrent DVTs, left leg cellulitis from venous insufficiency, right nephrectomy and metastatic renal cell carcinoma as summarized above, diabetes mellitus, herniorrhaphy. ALLERGIES: IBUPROFEN. MEDICATIONS: See hospital chart. SOCIAL HISTORY: and 6 times. 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 Minimal drinker. Nonsmoker. He has 9 children and only has contact with some of them. He anticipates being released from [facility] in 2019. FAMILY HISTORY: Mother in old age in her 90s, had some form of cancer. Aunt had a history of breast cancer. No renal cell carcinoma in the family. PHYSICAL EXAMINATION: GENERAL: Revealed a pleasant, cooperative, conversant gentleman in no acute distress, confined to bed due to his wound VAC and left leg elevation. HEENT: Unremarkable. LYMPH NODES: She had no palpable cervical or supraclavicular adenopathy. LUNGS: Clear to percussion. HEART: Regular. ABDOMEN: Revealed obesity with no hepatomegaly, mass or tenderness. EXTREMITIES: Left leg was elevated in bed with a wound VAC in place in the anterior distal left leg with surrounding venous insufficiency, skin changes, minimal distal edema. Right flank was not palpated given his status with his leg wound. LABORATORY STUDIES: From 06/06/2018, hemoglobin 8.3, white count 8300, platelet count 148,000. Chemistry panel was within normal limits. Creatinine 1.0. Electrolytes normal. Calcium 9.1. CT scan of the chest from 06/01/2018 was reviewed. There were multiple bilateral lung nodules, bilateral pleural effusions, absent right kidney, right adrenal mass 2.1 cm in size, expansile destructive right posterior lateral 9th rib mass on the right side. ASSESSMENT AND PLAN: In summary, my impression is that of progressive metastatic stage IV renal cell carcinoma. He has significant pain from a solitary bone metastasis seen on chest CT image. Palliative radiation therapy to this site is appropriate. Anticipate a 5-day course of treatment. I discussed treatment, its goals and toxicities in detail with the patient, he elected to proceed. Thank you for allowing us to participate in his evaluation. VALERIE GOMES MD DR: GLORIA/edgard JOB#: [id number] / [id number] JOSE Vines MD, AMAN MD MTDD
[2018-06-07 05:50] LABS: PROTHROMBIN TIME PATIENT 22.1 SEC (11.7-14.0)
[2018-06-07 05:51] LABS: UNFRACTIONATED HEPARIN TESTING 0.45 IU/mL (0.30-0.70)
[2018-06-07] MEDS: ceFAZolin SODIUM 1 GM in IV DEXTROSE 5% 50 ML IV SCH ×3 (06:09→20:58)
[2018-06-07] MEDS: HEPARIN 25,000UTS/500ML PREMIX 500 ML IV PRN (06:10)
[2018-06-07 07:15] VITALS: BP 122/65
[2018-06-07] MEDS: INSULIN LISPRO 300 UNITS/3 ML INSULN.PEN. SQ SCH ×6 (08:00→16:41)
[2018-06-07] MEDS: IPRATRPIUM/ALBUTEROL 0.5/2.5MG 3 ML NEBU. NEB SCH ×4 (08:04→20:31)
[2018-06-07] MEDS: SENNOSIDES 8.6 MG TABLET PO SCH ×2 (08:17→20:59)
[2018-06-07] MEDS: PIOGLITAZONE 15 MG TABLET. PO SCH (08:17)
[2018-06-07] MEDS: TAMSULOSIN 0.4 MG CAP.ER.24H. PO SCH (08:18)
[2018-06-07] MEDS: LISINOPRIL 20 MG TABLET PO SCH (08:18)
[2018-06-07] MEDS: CETIRIZINE HCL 10 MG TABLET. PO SCH (08:18)
[2018-06-07] MEDS: LACTOBACILLUS RHAMNOSUS GG 1 CAPSULE. PO SCH ×2 (08:18→20:58)
[2018-06-07] MEDS: GABAPENTIN 300 MG CAPSULE. PO SCH ×2 (08:18→20:59)
[2018-06-07] MEDS: ASCORBIC ACID 500 MG TABLET PO SCH (08:18)
[2018-06-07] MEDS: AZITHROMYCIN 250 MG TABLET. PO SCH (08:18)
[2018-06-07] MEDS: metFORMIN 500 MG TABLET PO SCH ×2 (08:18→16:38)
[2018-06-07] MEDS: MULTIVITAMIN with MINERAL TABLET. PO SCH (08:18)
[2018-06-07] MEDS: LIDOCAINE (700MG/PATCH) PATCH. TD SCH (08:19)
[2018-06-07] MEDS: INSULIN GLARGINE 300 UNITS/3 ML INSULN.PEN. SQ SCH ×2 (08:25→21:05)
[2018-06-07] MEDS: BACITRACIN/POLYMYXIN B TOPICAL OINT 15GM TUBE. TP SCH ×3 (08:27→20:57)
--- NOTE | 2018-06-07 10:08 | RAD ---
Left tibia and fibula, 2 views, 06/07/2018: HISTORY: Nonhealing ulcer There is a prominent soft tissue defect present along the medial aspect of the lower leg. No underlying fracture or destructive bony lesion is seen. There is deformity of the distal tibia compatible with old trauma. A lucency involving the distal tibia at the level of the distal tibiofibular syndesmosis is probably related to old trauma. This does not correspond to the level of the soft tissue ulceration. IMPRESSION: 1. Distal tibial deformity which is probably posttraumatic. 2. No acute bony abnormality is detected. Electronically signed by: Surya Hernandez MD (06/07/2018 10:05 AM) [facility]
--- NOTE | 2018-06-07 10:30 | PDOC ---
PROGRESS NOTES Chief Complaint Chief Complaint 1. marked complicated acute cellulitis left lower leg, indwelling left wound VAC 2. Occlusive thrombus left femoral vein-possibly remnant of previous DVT on that same leg 3. diabetes 2, mod control 4. hypertension 5. OBESITY, BMI 38 6. [employer] prisoner low security 7. mod protein, caloric malnutrition 8. 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 ThromboCytopenia, platelets 136 11. INmate 12. Hemoptysis, thrombocytopenia, on heparin gtt 13. SUBTherapeutic INR 14,. 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- for 5 day radiaton tx History of Present Illness History of Present Illness Wound VAC DIScontinued by wound care because that left leg is worse than what it was Left inner thigh pain and induration continues Right rib hurts, ninth-he hasn't epistatic lesion there - PLanned for 5 days radiation tx Has gotten 36 doses of Percocet 5 - I started 10 mgs percocet Lidoderm patch did not help much with the pain - hopefully radiation can I addressed CODE STATUS as requested by correction facility-he said without a doubt to be a full code INR is 1.5 with some increasing hemoptysis, platelets on the low side - heparin gtt running Patient came from correction, minimum security and will be released July 2019 He does not have family or family does not know how sick he is ESR 90, was 86 few days ago Vital signs good PLAN: Percocet increased to 10mgs RAdiation tx x 5 days by rad onc Fentanyl now then every 2 when necessary HEme onc plans is palliative chemo and he will follow with his heme onc at [place] Consults vascular surgery because of worsening left leg Wound care to the wound VAC off yesterday Monday because of worsening left leg Check lactate tmr ESR 90s Vitals Vitals Vital Signs Date Time Temp Pulse Resp B/P (MAP) Pulse Ox O2 Delivery O2 Flow Rate FiO2 06/07/18 08:18 72 122/65 06/07/18 08:05 93 Room Air 06/07/18 07:15 98.3 18 98.3 Physical Exam Physical Exam GENERAL: Propped up in bed, sleepy HEENT: Oral cavity, pharynx pink and moist. cluster herpetic-type lesions about the mouth/nares - dry/clearing NECK: Supple. LUNGS: Clear to auscultation. HEART: S1 and S2. ABDOMEN: Obese, soft and nontender with bowel sounds present. EXTREMITIES: LLE edema and tenderness in the thighs, Lt lower ext wound vac in place + warmth and localized redness. SKIN: without rash NEUROLOGIC: Sleepy, responds appropriately General: Alert, Oriented X3, Cooperative Heart: Regular rate Lungs: Clear Abdomen: Normal bowel sounds, No hepatosplenomegaly, Other (obese) Extremities: No clubbing, No cyanosis, No edema, Other (has wound vac left lee ) Skin: Other (as above, also almost petechial like rase right cheek which he says was due to med reaction) Labs LABS Laboratory Tests Test 06/06/18 11:21 06/06/18 16:59 06/06/18 20:28 06/07/18 04:10 Glucose (Fingerstick) 305 mg/dL (70-99) 196 mg/dL (70-99) 168 mg/dL (70-99) Prothrombin Time 22.1 SEC (11.7-14.0) Prothromb Time International Ratio 2.0 (0.8-1.1) Heparin Anti-Xa Act, Unfractionated 0.45 IU/mL (0.30-0.70) Test 06/07/18 07:36 Glucose (Fingerstick) 144 mg/dL (70-99) Review of Systems Review of Systems Left leg hurts, occasional hemoptysis, right rib hurts, the rest of ROS negative Comment Review of Relevant I have reviewed the following items anjana (where applicable) has been applied. Labs Laboratory Tests Test 06/05/18 11:34 06/05/18 11:50 06/05/18 16:58 06/05/18 18:10 Glucose (Fingerstick) 289 mg/dL (70-99) 181 mg/dL (70-99) Heparin Anti-Xa Act, Unfractionated 0.75 IU/mL (0.30-0.70) 0.71 IU/mL (0.30-0.70) Test 06/05/18 20:53 06/06/18 00:15 06/06/18 06:10 06/06/18 07:16 Glucose (Fingerstick) 195 mg/dL (70-99) 174 mg/dL (70-99) White Blood Count 8.3 x10^3/uL (4.0-11.0) Red Blood Count 2.64 x10^6/uL (4.30-5.70) Hemoglobin 8.3 g/dL (13.0-17.5) Hematocrit 25.9 % (39.0-53.0) Mean Corpuscular Volume 98 fL (79-100) Mean Corpuscular Hemoglobin 32 pg (25-35) Mean Corpuscular Hemoglobin Concent 32 g/dL (31-37) Red Cell Distribution Width 18.3 % (11.5-14.5) Platelet Count 148 x10^3/uL (140-400) Neutrophils (%) (Auto) 44 % (31-73) Lymphocytes (%) (Auto) 49 % (24-48) Monocytes (%) (Auto) 6 % (0-9) Eosinophils (%) (Auto) 2 % (0-3) Basophils (%) (Auto) 0 % (0-3) Neutrophils # (Auto) 3.6 x10^3uL (1.8-7.7) Lymphocytes # (Auto) 4.1 x10^3/uL (1.0-4.8) Monocytes # (Auto) 0.5 x10^3/uL (0.0-1.1) Eosinophils # (Auto) 0.1 x10^3/uL (0.0-0.7) Basophils # (Auto) 0.0 x10^3/uL (0.0-0.2) Erythrocyte Sedimentation Rate 90 (0-15) Prothrombin Time 17.9 SEC (11.7-14.0) Prothromb Time International Ratio 1.5 (0.8-1.1) Heparin Anti-Xa Act, Unfractionated 0.47 IU/mL (0.30-0.70) 0.51 IU/mL (0.30-0.70) Test 06/06/18 11:21 06/06/18 16:59 06/06/18 20:28 06/07/18 04:10 Glucose (Fingerstick) 305 mg/dL (70-99) 196 mg/dL (70-99) 168 mg/dL (70-99) Prothrombin Time 22.1 SEC (11.7-14.0) Prothromb Time International Ratio 2.0 (0.8-1.1) Heparin Anti-Xa Act, Unfractionated 0.45 IU/mL (0.30-0.70) Test 06/07/18 07:36 Glucose (Fingerstick) 144 mg/dL (70-99) Laboratory Tests Test 06/06/18 11:21 06/06/18 16:59 06/06/18 20:28 06/07/18 04:10 Glucose (Fingerstick) 305 mg/dL (70-99) 196 mg/dL (70-99) 168 mg/dL (70-99) Prothrombin Time 22.1 SEC (11.7-14.0) Prothromb Time International Ratio 2.0 (0.8-1.1) Heparin Anti-Xa Act, Unfractionated 0.45 IU/mL (0.30-0.70) Test 06/07/18 07:36 Glucose (Fingerstick) 144 mg/dL (70-99) Microbiology 05/25/18 Blood Culture - Final, Complete NO GROWTH AFTER 5 DAYS 05/26/18 Urine Culture - Final, Complete 05/26/18 Urine Culture Result 1 (LUCY) - Final, Complete 05/26/18 Anaerobic/Aerobic Culture - Final, Complete 05/26/18 Anaerobic Culture Result 1 (LUCY) - Final, Complete 05/26/18 Aerobic Culture - Final, Complete 05/26/18 Aerobic Culture Result 1 (LUCY) - Final, Complete 05/26/18 Antimicrobic Susceptibility - Final, Complete 05/26/18 Gram Stain - Final, Complete 05/26/18 Gram Stain Result 1 (LUCY) - Final, Complete 05/26/18 Gram Stain Result 2 (LUCY) - Final, Complete Medications Current Medications Sodium Chloride 1,000 ml @ 100 mls/hr Q10H IV Last administered on 06/02/18at 05:50; Start 05/25/18 at 17:54; Stop 06/02/18 at 12:54; Status DC Ondansetron HCl (Zofran) 4 mg PRN Q4HRS PRN IV NAUSEA/VOMITING; Start 05/25/18 at 18:00 Zolpidem Tartrate (Ambien) 5 mg PRN QHS PRN PO INSOMNIA; Start 05/25/18 at 18: 00 Acetaminophen (Tylenol) 650 mg PRN Q4HRS PRN PO TEMP OVER 100.4F OR MILD PAIN Last administered on 05/26/18at 22:46; Start 05/25/18 at 18:00 Al Hydroxide/Mg Hydroxide (Mylanta Plus Xs) 30 ml PRN DAILY PRN PO HEARTBURN / GAS Last administered on 05/27/18at 17:49; Start 05/25/18 at 18:00 Clonidine HCl (Catapres) 0.1 mg PRN Q6HRS PRN PO SBP>160 OR DBP>90; Start 05/25 at 18:00 Diphenhydramine HCl (Benadryl) 25 mg PRN Q4HRS PRN IVP ITCHING; Start 05/25/18 at 18:00 Docusate Sodium (Colace) 100 mg PRN BID PRN PO CONSTIPATION; Start 05/25/18 at 18:00 Albuterol/ Ipratropium (Duoneb) 3 ml Q4HRS NEB Last administered on 05/31/18at 16:05; Start 05/25/18 at 20:00; Stop 05/31/18 at 18:30; Status DC Guaifenesin (Robitussin) 200 mg PRN Q4HRS PRN PO COUGH 1ST CHOICE; Start at 18:00 Lorazepam (Ativan) 0.5 mg PRN Q4HRS PRN PO ANXIETY / AGITATION Last administered on 05/26/18at 04:30; Start 05/25/18 at 18:00 Enoxaparin Sodium (Lovenox 40mg Syringe) 40 mg DAILY SQ Last administered on at 09:39; Start 05/26/18 at 09:00; Stop 05/26/18 at 16:30; Status DC Piperacillin Sod/ Tazobactam Sod 3.375 gm/Sodium Chloride 50 ml @ 100 mls/hr Q6HRS IV Last administered on 05/30/18at 06:06; Start 05/25/18 at 18:10; Stop at 11:12; Status DC Acetaminophen (Tylenol) 650 mg TID PRN PRN PO PAIN; Start 05/25/18 at 18:15; Status UNV Furosemide (Lasix) 20 mg DAILY PO ; Start 05/26/18 at 09:00; Stop 05/27/18 at 13 :28; Status DC Lisinopril (Prinivil) 20 mg DAILY PO Last administered on 06/07/18 08:18; Start 05/26/18 at 09:00 Insulin Glargine (Lantus) 20 units BID SQ Last administered on 06/07/18 08:25 ; Start 05/25/18 at 21:00 Pioglitazone HCl (Actos) 45 mg DAILY PO Last administered on 06/07/18 08:17; Start 05/26/18 at 09:00 Sennosides (Senna) 17.2 mg BID PO Last administered on 06/07/18 08:17; Start 05/25/18 at 21:00 Warfarin Sodium (Coumadin) 4 mg DAILY16 PO Last administered on 05/26/18 18:06 ; Start 05/25/18 at 21:00; Stop 05/27/18 at 11:16; Status DC Piperacillin Sod/ Tazobactam Sod 3.375 gm/Sodium Chloride 50 ml @ 100 mls/hr Q6HRS IV ; Start 05/26/18 at 00:00; Status UNV Vancomycin HCl (Vanco Per Pharmacy) 1 each PRN DAILY PRN MC SEE COMMENTS Last administered on 05/26/18 16:08; Start 05/25/18 at 18:45; Stop 05/26/18 at 18:24 ; Status DC Vancomycin HCl 2 gm/Sodium Chloride 500 ml @ 250 mls/hr 1X ONCE IV Last administered on 05/25/18at 22:34; Start 05/25/18 at 19:00; Stop 05/25/18 at 20:59 ; Status DC Warfarin Sodium (Coumadin Per Physician) 1 each PRN DAILY PRN MC SEE COMMENTS Last administered on 05/26/18at 16:15; Start 05/25/18 at 20:45; Stop 05/27/18 at 11:16; Status DC Vancomycin HCl 1.5 gm/Sodium Chloride 500 ml @ 250 mls/hr Q12H IV Last administered on 05/26/18at 09:39; Start 05/26/18 at 09:00; Stop 05/26/18 at 18:24 ; Status DC Vancomycin HCl (Vancomycin Trough Level) 1 each 1X ONCE MC ; Start 05/27/18 at 08:30; Stop 05/27/18 at 08:30; Status DC Fentanyl Citrate (Fentanyl 2ml Vial) 50 mcg PRN Q3HRS PRN IV MODERATE TO SEVERE PAIN Last administered on 06/06/18at 05:33; Start 05/25/18 at 22:00 Albuterol Sulfate (Ventolin Neb Soln) 2.5 mg PRN Q6HRS PRN INH SHORTNESS OF BREATH; Start 05/26/18 at 10:15 Allopurinol (Zyloprim) 200 mg DAILY PO ; Start 05/26/18 at 11:00; Stop 05/26/18 at 16:09; Status DC Atorvastatin Calcium (Lipitor) 40 mg QHS PO Last administered on 06/06/18at 20: 46; Start 05/26/18 at 21:00 Cetirizine HCl (ZyrTEC) 10 mg DAILY PO Last administered on 06/07/18at 08:18; Start 05/26/18 at 10:30 Tamsulosin HCl (Flomax) 0.4 mg DAILY PO Last administered on 06/07/18 08:18; Start 05/26/18 at 10:30 Gabapentin (Neurontin) 600 mg BID PO Last administered on 05/27/18at 08:10; Start 05/26/18 at 10:15; Stop 05/27/18 at 13:29; Status DC Insulin Human Lispro (HumaLOG) 4 units TIDWMEALS SQ Last administered on at 08:26; Start 05/26/18 at 17:00 Insulin Human Lispro (HumaLOG) 0-7 UNITS TIDWMEALS SQ Last administered on 06/06at 17:01; Start 05/26/18 at 17:00 Dextrose (Dextrose 50%-Water Syringe) 12.5 gm PRN Q15MIN PRN IV SEE COMMENTS; Start 05/26/18 at 13:00 Metformin HCl (Glucophage) 1,000 mg BIDWMEALS PO Last administered on at 16:59; Start 05/26/18 at 17:00; Stop 06/01/18 at 17:54; Status DC Linezolid/Dextrose 300 ml @ 300 mls/hr Q12HR IV Last administered on at 11:04; Start 05/26/18 at 21:00; Stop 05/30/18 at 11:12; Status DC Heparin Sodium/ Dextrose 500 ml @ 0 mls/hr CONT PRN IV SEE I/O RECORD Last administered on 06/07/18 06:10; Start 05/28/18 at 09:00 Heparin Sodium (Porcine) (Heparin Sodium) 3,400 unit PRN Q6HRS PRN IV FOR UFH LEVEL LESS THAN 0.2; Start 05/28/18 at 09:00 Heparin Sodium (Porcine) (Heparin Sodium) 1,700 unit PRN Q6HRS PRN IV FOR UFH LEVEL 0.2 - 0.29 Last administered on 06/02/18 06:17; Start 05/28/18 at 09:00; Stop 06/02/18 at 12:54; Status DC Info (Anti-Coagulation Monitoring By Pharmacy) 1 each PRN DAILY PRN MC SEE COMMENTS Last administered on 06/06/18 17:38; Start 05/27/18 at 11:30 Lactobacillus Rhamnosus (Culturelle) 1 cap BID PO Last administered on 08:18; Start 05/27/18 at 21:00 Bacitracin/ Polymyxin B Sulfate (Polysporin) 1 ana TID TP Last administered on 06/06/18 20:48; Start 05/27/18 at 14:00 Gabapentin (Neurontin) 600 mg DAILY08 PO Last administered on 06/07/18 08:18; Start 05/28/18 at 08:00 Gabapentin (Neurontin) 900 mg HS PO Last administered on 06/06/18 20:46; Start 05/27/18 at 21:00 Oxycodone/ Acetaminophen (Percocet 5/325) 1 tab PRN Q4HRS PRN PO MODERATE TO SEVERE PAIN Last administered on 06/06/18 05:32; Start 05/27/18 at 14:30; Stop 06/06/18 at 10:30; Status DC Multivitamins (Thera M Plus) 1 tab DAILY PO Last administered on 06/07/18 08: 18; Start 05/28/18 at 17:00 Ascorbic Acid (Vitamin C) 500 mg DAILY PO Last administered on 06/07/18 08:18 ; Start 05/28/18 at 17:00 Ondansetron HCl (Zofran) 4 mg PRN Q6HRS PRN IV NAUSEA/VOMITING; Start 05/30/18 at 07:00; Stop 05/30/18 at 15:00; Status DC Morphine Sulfate (Morphine Sulfate) 1 mg PRN Q10MIN PRN IV SEVERE PAIN Last administered on 05/30/18at 09:29; Start 05/30/18 at 07:00; Stop 05/30/18 at 15:00 ; Status DC Ringer's Solution 1,000 ml @ 30 mls/hr Q24H IV ; Start 05/30/18 at 07:00; Stop 05/30/18 at 11:36; Status DC Lidocaine HCl (Xylocaine-Mpf 1% 2ml Vial) 2 ml PRN 1X PRN ID PRIOR TO IV START ; Start 05/30/18 at 07:00; Stop 05/30/18 at 15:00; Status DC Hydromorphone HCl (Dilaudid) 0.5 mg PRN Q10MIN PRN IV SEV PAIN, Second choice; Start 05/30/18 at 07:00; Stop 05/30/18 at 15:00; Status DC Prochlorperazine Edisylate (Compazine) 5 mg PACU PRN PRN IV NAUSEA, MRX1; Start 05/30/18 at 07:00; Stop 05/30/18 at 15:00; Status DC Albuterol/ Ipratropium (Duoneb) 3 ml 1X ONCE NEB Last administered on at 07:10; Start 05/30/18 at 07:15; Stop 05/30/18 at 07:16; Status DC Fentanyl Citrate (Fentanyl 2ml Vial) 100 mcg STK-MED ONCE .ROUTE ; Start at 07:15; Stop 05/30/18 at 07:16; Status DC Ondansetron HCl (Zofran) 4 mg STK-MED ONCE .ROUTE ; Start 05/30/18 at 08:42; Stop 05/30/18 at 08:43; Status DC Propofol 20 ml @ As Directed STK-MED ONCE IV ; Start 05/30/18 at 08:43; Stop at 08:44; Status DC Lidocaine HCl (Lidocaine Pf 2% Vial) 5 ml STK-MED ONCE .ROUTE ; Start 05/30/18 at 08:43; Stop 05/30/18 at 08:44; Status DC Sevoflurane (Ultane) 30 ml STK-MED ONCE IH ; Start 05/30/18 at 08:44; Stop 05/30 at 08:45; Status DC Cefazolin Sodium/ Dextrose 50 ml @ 100 mls/hr Q8HRS IV ; Start 05/30/18 at 14: 00; Stop 05/30/18 at 14:00; Status DC Cefazolin Sodium 50 ml @ 100 mls/hr Q8HRS IV ; Start 05/30/18 at 14:00; Status UNV Cefazolin Sodium 1 gm/Dextrose 50 ml @ 100 mls/hr Q8HRS IV Last administered on 06/07/18at 06:09; Start 05/30/18 at 14:00 Warfarin Sodium (Coumadin Per Pharmacy) 1 each PRN DAILY PRN MC SEE COMMENTS Last administered on 06/06/18at 17:39; Start 05/31/18 at 14:15 Warfarin Sodium (Coumadin) 5 mg DAILY16 PO Last administered on 05/31/18at 16:54 ; Start 05/31/18 at 16:00; Stop 06/01/18 at 12:58; Status DC Albuterol/ Ipratropium (Duoneb) 3 ml QID NEB Last administered on 06/07/18at 08: 04; Start 05/31/18 at 20:00 Warfarin Sodium (Coumadin) 6 mg 1X WARF ONCE PO Last administered on at 17:47; Start 06/01/18 at 16:00; Stop 06/01/18 at 16:01; Status DC Iohexol (Omnipaque 300 Mg/ml) 60 ml 1X ONCE IV Last administered on 06/01/18at 22:03; Start 06/01/18 at 18:00; Stop 06/01/18 at 18:01; Status DC Metformin HCl (Glucophage) 1,000 mg BIDWMEALS PO Last administered on at 08:18; Start 06/04/18 at 08:00 Info (CONTRAST GIVEN -- Rx MONITORING) 1 each PRN DAILY PRN MC SEE COMMENTS; Start 06/01/18 at 18:00; Stop 06/03/18 at 17:59; Status DC Azithromycin (Zithromax) 500 mg 1X ONCE PO Last administered on 06/02/18at 12: 18; Start 06/02/18 at 10:30; Stop 06/02/18 at 10:31; Status DC Azithromycin (Zithromax) 250 mg DAILY PO Last administered on 06/07/18 08:18; Start 06/03/18 at 09:00; Stop 06/07/18 at 09:00; Status DC Warfarin Sodium (Coumadin) 7.5 mg 1X WARF ONCE PO Last administered on 15:59; Start 06/02/18 at 16:00; Stop 06/02/18 at 16:01; Status DC Warfarin Sodium (Coumadin) 7.5 mg 1X WARF ONCE PO ; Start 06/03/18 at 16:00; Stop 06/03/18 at 16:01; Status DC Warfarin Sodium (Coumadin) 7.5 mg 1X WARF ONCE PO Last administered on 16:39; Start 06/04/18 at 16:00; Stop 06/04/18 at 16:01; Status DC Guaifenesin/ Codeine Phosphate (Robitussin Ac) 5 ml PRN Q6HRS PRN PO COUGH 2ND CHOICE Last administered on 06/05/18 21:14; Start 06/04/18 at 18:30 Warfarin Sodium (Coumadin) 9 mg 1X WARF ONCE PO ; Start 06/05/18 at 16:00; Stop 06/05/18 at 16:01; Status Cancel Warfarin Sodium (Coumadin) 9 mg 1X WARF ONCE PO Last administered on 17:06; Start 06/05/18 at 16:00; Stop 06/05/18 at 16:01; Status DC Lidocaine (Lidoderm) 1 patch DAILY TD Last administered on 06/07/18 08:19; Start 06/06/18 at 10:30 Miscellaneous (Lidoderm Patch Removal) 1 ea QHS MC Last administered on 21:00; Start 06/06/18 at 21:00 Oxycodone/ Acetaminophen (Percocet 10/325) 1 tab PRN Q4HRS PRN PO pain Last administered on 06/07/18 06:12; Start 06/06/18 at 10:30 Fentanyl Citrate (Fentanyl 2ml Vial) 50 mcg 1X ONCE IV Last administered on 10:49; Start 06/06/18 at 10:30; Stop 06/06/18 at 10:38; Status DC Fentanyl Citrate (Fentanyl 2ml Vial) 50 mcg PRN Q2HR PRN IV PAIN Last administered on 06/07/18at 06:12; Start 06/06/18 at 10:30 Warfarin Sodium (Coumadin) 9 mg 1X WARF ONCE PO Last administered on at 15:32; Start 06/06/18 at 16:00; Stop 06/06/18 at 16:01; Status DC Active Scripts Active Reported Preparation H Ointment (Phenyleph/Mineral Oil/Petrolat) 28 Gm Oint.appl 28 Gm RC QID Muscle Rub Cream (Methyl Salicylate/Menthol) 113 Gm Cream..g. 1 Gm TP TID Proair Hfa Inhaler (Albuterol Sulfate) 8.5 Gm Hfa.aer.ad 1 Puff INH PRN Q6HRS PRN Zyrtec (Cetirizine Hcl) 10 Mg Tablet 1 Tab PO DAILY Atorvastatin Calcium 40 Mg Tablet 1 Tab PO QHS Metformin Hcl 1,000 Mg Tablet 1,000 Mg PO BIDWMEALS Gabapentin (Gabapentin) 300 Mg Capsule 300 Mg PO DAILY Gabapentin 600 Mg Tablet 600 Mg PO DAILY08 Flomax (Tamsulosin Hcl) 0.4 Mg Cap.er.24h 1 Cap PO DAILY Tylenol (Acetaminophen) 325 Mg Tablet 2 Tab PO TID PRN PRN Humulin R (Insulin Regular, Human) 100 Unit/1 Ml Vial 100 Unit IJ TIDAC Lisinopril 20 Mg Tablet 1 Tab PO DAILY Furosemide 20 Mg Tablet 1 Tab PO DAILY Coumadin (Warfarin Sodium) 4 Mg Tablet 1 Tab PO DAILY Actos (Pioglitazone Hcl) 45 Mg Tablet 1 Tab PO DAILY Novolin N (Nph, Human Insulin Isophane) 100 Unit/1 Ml Vial 20 Unit SQ BID Senna (Sennosides) 8.6 Mg Tablet 2 Mg PO BID Vitals/I & O Vital Sign - Last 24 Hours 06/06/18 06/06/18 06/06/18 06/06/18 10:49 11:25 13:40 15:30 Temp 98.4 98.1 98.4 98.1 Pulse 90 91 Resp 20 20 B/P (MAP) 104/57 (73) 106/58 (74) Pulse Ox 91 91 O2 Delivery Room Air Room Air Room Air Room Air 3/06/06/18 06/06/18 06/06/18 15:33 15:36 16:39 19:45 O2 Delivery Room Air Room Air Room Air Room Air 06/06/18 06/06/18 06/06/18 06/06/18 19:53 20:46 20:47 21:20 Temp 98.4 98.4 Pulse 95 Resp 16 B/P (MAP) 118/54 (75) Pulse Ox 91 93 O2 Delivery Room Air Room Air Room Air Room Air 06/06/18 06/06/18 06/07/18 06/07/18 23:56 23:57 02:18 02:19 Temp 98.6 98.6 Pulse 90 Resp 16 B/P (MAP) 113/61 (78) Pulse Ox 91 O2 Delivery Room Air Room Air Room Air Room Air 06/07/18 06/07/18 06/07/18 06/07/18 03:46 06:12 06:12 07:10 Temp 97.5 97.5 Pulse 76 Resp 16 B/P (MAP) 109/60 (76) Pulse Ox 90 O2 Delivery Room Air Room Air Room Air Room Air 06/07/18 06/07/18 06/07/18 06/07/18 07:10 07:15 07:32 08:05 Temp 98.3 98.3 Pulse 72 Resp 18 B/P (MAP) 122/65 (84) Pulse Ox 94 93 O2 Delivery Room Air Room Air Room Air Room Air 06/07/18 08:18 Pulse 72 B/P (MAP) 122/65 Intake and Output 06/06/18 06/06/18 06/07/18 15:00 23:00 07:00 Intake Total 400 ml 490 ml 750 ml Output Total 1275 ml 700 ml 500 ml Balance -875 ml -210 ml 250 ml SHAUN JOSE MD Jun 07, 2018 10:30
[2018-06-07] MEDS: ONDANSETRON PF 4 MG/2 ML VIAL. IV PRN (10:44)
[2018-06-07 11:00] VITALS: BP 120/64
--- NOTE | 2018-06-07 11:07 | PDOC ---
PULMONARY PROGRESS NOTES Subjective BETTER TODAY NO INCREASE SOA OR COUGH Vitals Vital Signs Date Time Temp Pulse Resp B/P (MAP) Pulse Ox O2 Delivery O2 Flow Rate FiO2 06/07/18 11:00 97.6 71 18 120/64 (82) 94 Room Air 97.6 ROS: No Increase Cough General: Alert, No acute distress Lungs: Clear Cardiovascular: S1 Abdomen: Soft, Other (obese) Neuro Exam: Alert Extremities: Other (cellulitis left leg) Labs Laboratory Tests Test 06/05/18 11:34 06/05/18 11:50 06/05/18 16:58 06/05/18 18:10 Glucose (Fingerstick) 289 mg/dL (70-99) 181 mg/dL (70-99) Heparin Anti-Xa Act, Unfractionated 0.75 IU/mL (0.30-0.70) 0.71 IU/mL (0.30-0.70) Test 06/05/18 20:53 06/06/18 00:15 06/06/18 06:10 06/06/18 07:16 Glucose (Fingerstick) 195 mg/dL (70-99) 174 mg/dL (70-99) White Blood Count 8.3 x10^3/uL (4.0-11.0) Red Blood Count 2.64 x10^6/uL (4.30-5.70) Hemoglobin 8.3 g/dL (13.0-17.5) Hematocrit 25.9 % (39.0-53.0) Mean Corpuscular Volume 98 fL (79-100) Mean Corpuscular Hemoglobin 32 pg (25-35) Mean Corpuscular Hemoglobin Concent 32 g/dL (31-37) Red Cell Distribution Width 18.3 % (11.5-14.5) Platelet Count 148 x10^3/uL (140-400) Neutrophils (%) (Auto) 44 % (31-73) Lymphocytes (%) (Auto) 49 % (24-48) Monocytes (%) (Auto) 6 % (0-9) Eosinophils (%) (Auto) 2 % (0-3) Basophils (%) (Auto) 0 % (0-3) Neutrophils # (Auto) 3.6 x10^3uL (1.8-7.7) Lymphocytes # (Auto) 4.1 x10^3/uL (1.0-4.8) Monocytes # (Auto) 0.5 x10^3/uL (0.0-1.1) Eosinophils # (Auto) 0.1 x10^3/uL (0.0-0.7) Basophils # (Auto) 0.0 x10^3/uL (0.0-0.2) Erythrocyte Sedimentation Rate 90 (0-15) Prothrombin Time 17.9 SEC (11.7-14.0) Prothromb Time International Ratio 1.5 (0.8-1.1) Heparin Anti-Xa Act, Unfractionated 0.47 IU/mL (0.30-0.70) 0.51 IU/mL (0.30-0.70) Test 06/06/18 11:21 06/06/18 16:59 06/06/18 20:28 06/07/18 04:10 Glucose (Fingerstick) 305 mg/dL (70-99) 196 mg/dL (70-99) 168 mg/dL (70-99) Prothrombin Time 22.1 SEC (11.7-14.0) Prothromb Time International Ratio 2.0 (0.8-1.1) Heparin Anti-Xa Act, Unfractionated 0.45 IU/mL (0.30-0.70) Test 06/07/18 07:36 Glucose (Fingerstick) 144 mg/dL (70-99) Laboratory Tests Test 06/06/18 11:21 06/06/18 16:59 06/06/18 20:28 06/07/18 04:10 Glucose (Fingerstick) 305 mg/dL (70-99) 196 mg/dL (70-99) 168 mg/dL (70-99) Prothrombin Time 22.1 SEC (11.7-14.0) Prothromb Time International Ratio 2.0 (0.8-1.1) Heparin Anti-Xa Act, Unfractionated 0.45 IU/mL (0.30-0.70) Test 06/07/18 07:36 Glucose (Fingerstick) 144 mg/dL (70-99) Medications Active Scripts Medications Dose Route/Sig Max Daily Dose Days Date Category Preparation H Ointment (Phenyleph/Mineral Oil/Petrolat) 28 Gm Oint.appl 28 Gm RC QID 05/25/18 Reported Muscle Rub Cream (Methyl Salicylate/Menthol) 113 Gm Cream..g. 1 Gm TP TID 05/25/18 Reported Proair Hfa Inhaler (Albuterol Sulfate) 8.5 Gm Hfa.aer.ad 1 Puff INH PRN Q6HRS PRN 05/25/18 Reported Zyrtec (Cetirizine Hcl) 10 Mg Tablet 1 Tab PO DAILY 05/25/18 Reported Atorvastatin Calcium 40 Mg Tablet 1 Tab PO QHS 05/25/18 Reported Metformin Hcl 1,000 Mg Tablet 1,000 Mg PO BIDWMEALS 05/25/18 Reported Gabapentin (Gabapentin) 300 Mg Capsule 300 Mg PO DAILY 05/25/18 Reported Gabapentin 600 Mg Tablet 600 Mg PO DAILY08 05/25/18 Reported Flomax (Tamsulosin Hcl) 0.4 Mg Cap.er.24h 1 Cap PO DAILY 05/25/18 Reported Tylenol (Acetaminophen) 325 Mg Tablet 2 Tab PO TID PRN PRN 05/25/18 Reported Humulin R (Insulin Regular, Human) 100 Unit/1 Ml Vial 100 Unit IJ TIDAC 05/25/18 Reported Lisinopril 20 Mg Tablet 1 Tab PO DAILY 05/25/18 Reported Furosemide 20 Mg Tablet 1 Tab PO DAILY 05/25/18 Reported Coumadin (Warfarin Sodium) 4 Mg Tablet 1 Tab PO DAILY 05/25/18 Reported Actos (Pioglitazone Hcl) 45 Mg Tablet 1 Tab PO DAILY 05/25/18 Reported Novolin N (Nph, Human Insulin Isophane) 100 Unit/1 Ml Vial 20 Unit SQ BID 05/25/18 Reported Senna (Sennosides) 8.6 Mg Tablet 2 Mg PO BID 05/25/18 Reported Impression . 1. Multiple metastatic nodules in the lungs, likely related to underlying renal cell cancer with lung metastasis. He underwent right nephrectomy in 2011 for renal cancer. 2. History of chronic deep venous thrombosis since 1988. His venous Dopplers showing persistent deep venous thrombus in 2016 as well as from 02/2018. He will need lifelong anticoagulation. He likely has hypercoagulable state secondary to underlying malignancy. 3. Left lower extremity cellulitis, status post wound infection and wound VAC. Vascular Surgery following. 4. No significant history of tobacco use. 5. Hemoptysis IMPROVING 6. Anemia, needs to be closely followed up. Plan . PALLIATIVE RADIATION RESP STATUS IS COMPENSATED WILL CONTINUE THE SAME PT/OT CONTINUE ANTIBX COUMADIN FOLLOW ONCO INPUT WOUND VAC SANDER MARAVILLA MD Jun 07, 2018 11:07
--- NOTE | 2018-06-07 11:23 | PDOC ---
Infectious Disease Note Subjective: Subjective pt cont to have pain in the LLE, had some blood in sputum earlier today sleepy Pain controlled No fevers ROS: ROS Negative except for above. Vital Signs: Vital Signs Vital Signs Date Time Temp Pulse Resp B/P (MAP) Pulse Ox O2 Delivery O2 Flow Rate FiO2 06/07/18 11:06 Room Air 06/07/18 11:00 97.6 71 18 120/64 (82) 94 97.6 Physical Exam: PHYSICAL EXAM GENERAL: Propped up in bed, sleepy HEENT: Oral cavity, pharynx pink and moist. cluster herpetic-type lesions about the mouth/nares - dry/clearing NECK: Supple. LUNGS: Clear to auscultation. HEART: S1 and S2. ABDOMEN: Obese, soft and nontender with bowel sounds present. EXTREMITIES: LLE edema and tenderness in the thighs, Lt lower ext wound vac in place + warmth and localized redness. SKIN: without rash NEUROLOGIC: Sleepy, responds appropriately Medications: Inpatient Meds: Current Medications Medications (Trade) Dose Ordered Sig/Katiana Start Time Stop Time Status Last Admin Dose Admin Acetaminophen (Tylenol) 650 mg TID PRN PRN 05/25/18 18:15 UNV Al Hydroxide/Mg Hydroxide (Mylanta Plus Xs) 30 ml PRN DAILY PRN 05/25/18 18:00 05/27/18 17:49 30 ML Albuterol Sulfate (Ventolin Neb Soln) 2.5 mg PRN Q6HRS PRN 05/26/18 10:15 Albuterol/ Ipratropium (Duoneb) 3 ml QID 05/31/18 20:00 06/07/18 08:04 3 ML Allopurinol (Zyloprim) 200 mg DAILY 05/26/18 11:00 05/26/18 16:09 DC Ascorbic Acid (Vitamin C) 500 mg DAILY 05/28/18 17:00 06/07/18 08:18 500 MG Atorvastatin Calcium (Lipitor) 40 mg QHS 05/26/18 21:00 06/06/18 20:46 40 MG Azithromycin (Zithromax) 250 mg DAILY 06/03/18 09:00 06/07/18 09:00 DC 06/07/18 08:18 250 MG Bacitracin/ Polymyxin B Sulfate (Polysporin) 1 ana TID 05/27/18 14:00 06/06/18 20:48 1 ANA Cefazolin Sodium 1 gm/Dextrose 50 ml @ 100 mls/hr Q8HRS 05/30/18 14:00 06/07/18 06:09 100 MLS/HR Cefazolin Sodium/ Dextrose 50 ml @ 100 mls/hr Q8HRS 05/30/18 14:00 05/30/18 14:00 DC Cetirizine HCl (ZyrTEC) 10 mg DAILY 05/26/18 10:30 06/07/18 08:18 10 MG Clonidine HCl (Catapres) 0.1 mg PRN Q6HRS PRN 05/25/18 18:00 Dextrose (Dextrose 50%-Water Syringe) 12.5 gm PRN Q15MIN PRN 05/26/18 13:00 Diphenhydramine HCl (Benadryl) 25 mg PRN Q4HRS PRN 05/25/18 18:00 Docusate Sodium (Colace) 100 mg PRN BID PRN 05/25/18 18:00 Enoxaparin Sodium (Lovenox 40mg Syringe) 40 mg DAILY 05/26/18 09:00 05/26/18 16:30 DC 05/26/18 09:39 40 MG Fentanyl Citrate (Fentanyl 2ml Vial) 50 mcg PRN Q2HR PRN 06/06/18 10:30 06/07/18 10:45 50 MCG Furosemide (Lasix) 20 mg DAILY 05/26/18 09:00 05/27/18 13:28 DC Gabapentin (Neurontin) 900 mg HS 05/27/18 21:00 06/06/18 20:46 900 MG Guaifenesin (Robitussin) 200 mg PRN Q4HRS PRN 05/25/18 18:00 Guaifenesin/ Codeine Phosphate (Robitussin Ac) 5 ml PRN Q6HRS PRN 06/04/18 18:30 06/05/18 21:14 5 ML Heparin Sodium (Porcine) (Heparin Sodium) 1,700 unit PRN Q6HRS PRN 05/28/18 09:00 06/02/18 12:54 DC 06/02/18 06:17 1,700 UNIT Heparin Sodium/ Dextrose 500 ml @ 0 mls/hr CONT PRN 05/28/18 09:00 06/07/18 10:31 DC 06/07/18 06:10 36.5 MLS/HR Hydromorphone HCl (Dilaudid) 0.5 mg PRN Q10MIN PRN 05/30/18 07:00 05/30/18 15:00 DC Info (Anti-Coagulation Monitoring By Pharmacy) 1 each PRN DAILY PRN 05/27/18 11:30 06/06/18 17:38 1 EACH Info (CONTRAST GIVEN -- Rx MONITORING) 1 each PRN DAILY PRN 06/01/18 18:00 06/03/18 17:59 DC Insulin Glargine (Lantus) 20 units BID 05/25/18 21:00 06/07/18 08:25 20 UNITS Insulin Human Lispro (HumaLOG) 0-7 UNITS TIDWMEALS 05/26/18 17:00 06/06/18 17:01 3 UNITS Iohexol (Omnipaque 300 Mg/ml) 60 ml 1X ONCE 06/01/18 18:00 06/01/18 18:01 DC 06/01/18 22:03 60 ML Lactobacillus Rhamnosus (Culturelle) 1 cap BID 05/27/18 21:00 06/07/18 08:18 1 CAP Lidocaine (Lidoderm) 1 patch DAILY 06/06/18 10:30 06/07/18 08:19 1 PATCH Lidocaine HCl (Lidocaine Pf 2% Vial) 5 ml STK-MED ONCE 05/30/18 08:43 05/30/18 08:44 DC Lidocaine HCl (Xylocaine-Mpf 1% 2ml Vial) 2 ml PRN 1X PRN 05/30/18 07:00 05/30/18 15:00 DC Linezolid/Dextrose 300 ml @ 300 mls/hr Q12HR 05/26/18 21:00 05/30/18 11:12 DC 05/30/18 11:04 300 MLS/HR Lisinopril (Prinivil) 20 mg DAILY 05/26/18 09:00 06/07/18 08:18 20 MG Lorazepam (Ativan) 0.5 mg PRN Q4HRS PRN 05/25/18 18:00 05/26/18 04:30 0.5 MG Metformin HCl (Glucophage) 1,000 mg BIDWMEALS 06/04/18 08:00 06/07/18 08:18 1,000 MG Miscellaneous (Lidoderm Patch Removal) 1 ea QHS 06/06/18 21:00 06/06/18 21:00 1 EA Morphine Sulfate (Morphine Sulfate) 1 mg PRN Q10MIN PRN 05/30/18 07:00 05/30/18 15:00 DC 05/30/18 09:29 1 MG Multivitamins (Thera M Plus) 1 tab DAILY 05/28/18 17:00 06/07/18 08:18 1 TAB Ondansetron HCl (Zofran) 4 mg STK-MED ONCE 05/30/18 08:42 05/30/18 08:43 DC Oxycodone/ Acetaminophen (Percocet 10/325) 1 tab PRN Q4HRS PRN 06/06/18 10:30 06/07/18 06:12 1 TAB Oxycodone/ Acetaminophen (Percocet 5/325) 1 tab PRN Q4HRS PRN 05/27/18 14:30 06/06/18 10:30 DC 06/06/18 05:32 1 TAB Pioglitazone HCl (Actos) 45 mg DAILY 05/26/18 09:00 06/07/18 08:17 45 MG Piperacillin Sod/ Tazobactam Sod 3.375 gm/Sodium Chloride 50 ml @ 100 mls/hr Q6HRS 05/26/18 00:00 UNV Prochlorperazine Edisylate (Compazine) 5 mg PACU PRN PRN 05/30/18 07:00 05/30/18 15:00 DC Propofol 20 ml @ As Directed STK-MED ONCE 05/30/18 08:43 05/30/18 08:44 DC Ringer's Solution 1,000 ml @ 30 mls/hr Q24H 05/30/18 07:00 05/30/18 11:36 DC Sennosides (Senna) 17.2 mg BID 05/25/18 21:00 06/07/18 08:17 17.2 MG Sevoflurane (Ultane) 30 ml STK-MED ONCE 05/30/18 08:44 05/30/18 08:45 DC Sodium Chloride 1,000 ml @ 100 mls/hr Q10H 05/25/18 17:54 06/02/18 12:54 DC 06/02/18 05:50 100 MLS/HR Tamsulosin HCl (Flomax) 0.4 mg DAILY 05/26/18 10:30 06/07/18 08:18 0.4 MG Vancomycin HCl (Vanco Per Pharmacy) 1 each PRN DAILY PRN 05/25/18 18:45 05/26/18 18:24 DC 05/26/18 16:08 1 EACH Vancomycin HCl (Vancomycin Trough Level) 1 each 1X ONCE 05/27/18 08:30 05/27/18 08:30 DC Vancomycin HCl 1.5 gm/Sodium Chloride 500 ml @ 250 mls/hr Q12H 05/26/18 09:00 05/26/18 18:24 DC 05/26/18 09:39 250 MLS/HR Vancomycin HCl 2 gm/Sodium Chloride 500 ml @ 250 mls/hr 1X ONCE 05/25/18 19:00 05/25/18 20:59 DC 05/25/18 22:34 250 MLS/HR Warfarin Sodium (Coumadin Per Pharmacy) 1 each PRN DAILY PRN 05/31/18 14:15 06/06/18 17:39 1 EACH Warfarin Sodium (Coumadin Per Physician) 1 each PRN DAILY PRN 05/25/18 20:45 05/27/18 11:16 DC 05/26/18 16:15 1 EACH Warfarin Sodium (Coumadin) 9 mg 1X WARF ONCE 06/06/18 16:00 06/06/18 16:01 DC 06/06/18 15:32 9 MG Zolpidem Tartrate (Ambien) 5 mg PRN QHS PRN 05/25/18 18:00 Labs: Lab Laboratory Tests Test 06/06/18 16:59 06/06/18 20:28 06/07/18 04:10 06/07/18 07:36 Glucose (Fingerstick) 196 mg/dL (70-99) 168 mg/dL (70-99) 144 mg/dL (70-99) Prothrombin Time 22.1 SEC (11.7-14.0) Prothromb Time International Ratio 2.0 (0.8-1.1) Heparin Anti-Xa Act, Unfractionated 0.45 IU/mL (0.30-0.70) Objective: Assessment: Cellulitis of left lower extremity, Nonhealing wounds of LLE since 2017,, now with eschar. s/p I and D taken down to fascia on 05/30/18. 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 Tomlinson in [place], was on Sutent per patient -CT chest:Innumerable bilateral lung masses, right adrenal mass: expansile right posterior ninth rib mass. Solitary kidney Incarceration MRSA screen positive Plan: Plan of Care Continue cefazolin, Completed Azithromycin course per pulmonary Probiotics awaiting RT due to progressive cancer wound vac per vascular surgery MARCELLE Melgar MD Jun 07, 2018 11:23
--- NOTE | 2018-06-07 14:57 | NUR ---
Pharmacy Warfarin Dosing Note S:Pharmacy consulted to assist with anticoagulation therapy started with target INR: 2 -3 O:HELADIO GAO is a 57 year old M with Recurrent VTE LABS: Last INR: 2.0 Last HGB: 8.3 Last HCT: 25.9 Last PLT: 148 Last dose of 9MG given on 06/06/18 at 1706 Previous Regimen: 4 MG/D Vitamin K given: N Drug Interaction Changes: Same Interacting Drug Ongoing Drug Interactions: ZITHROMAX A:INR of 2.0 is within desired range. Target range for this patient is: 2 -3 P: Warfarin dose: 9mg Today at 1600 Bridge Therapy: Heparin Therapeutic CONT Next INR due IN AM Pharmacy anticoagulation service will continue to follow. MAIKOL CAMPBELL [facility], 06/07/18 [id number]
--- NOTE | 2018-06-07 15:03 | PDOC ---
Provider Note Provider Note 57 yo man with metastatic renal cell carcinoma of right kidney s/p palliative nephrectomy 2011. He had palliative Sutent with response and now has disease progression with symptomatic progression in the right flank region due to a met in right posterior lateral 9th rib. He also has a hx of DVTs and now has a venous insufficiencyulcer in the distal left leg. Had debridement and wound vac placement. CT chest: bilateral multiple lung nodules c/w mets, bilateral effusions, right kidney absent. Solitary bulky destructive met in post lateral right 9th rib. Left distal leg ulceration likely due to venous insufficiency is now non healing with VAC. Base of ulcer appears to go to periosteal surface. Some concern that it may be related to malignancy due to lack of response to would care thus far. Plane x ray of left tib fib showed post traumatic change to distal tibia. No bone erosion or lytic change seen. Impression: Met renal cell carcinoma to right post-lateral 9th rib. Simulated for treatment today. First treatment given today as well. Plan five day course of treatment overall. VALERIE GOMES MD Jun 07, 2018 15:03
[2018-06-07] MEDS ORDERED: WARFARIN 3 MG TABLET. PO ONE (16:00)
--- NOTE | 2018-06-07 17:59 | PDOC ---
PROGRESS NOTES Subjective Subjective Pt with left leg DVT and severe chronic venous stasis changes and edema who underwent debridement of 2 large venous stasis ulcers of his left leg We have been asked to re-evaluate this Objective Objective Vital Signs Date Time Temp Pulse Resp B/P (MAP) Pulse Ox O2 Delivery O2 Flow Rate FiO2 06/07/18 16:05 Room Air 06/07/18 11:44 96 06/07/18 11:00 97.6 71 18 120/64 (82) 97.6 06/04/18 22:12 3.0 Intake and Output 06/07/18 06:59 Intake Total 1640 ml Output Total 2475 ml Balance -835 ml Intake Oral 1040 ml IV Total 600 ml Output Urine Total 2475 ml Physical Exam Physical Exam I took down his dressings and examined his wounds and leg at the bedside earlier today The upper wound has good granulation tissue on > 50% The lower wound has a fair bit of fibrinous slough there is no evidence of wound infection His edema and redness of the leg are more due to venous stasis / venous hypertension than anything else Assessment Assessment his wounds have some fibrinous slough but are not infected His leg erythema is more due to severe venous hypertension / stasis than other causes. Plan Plan of Care I don't think he needs further OR debridement at this point He needs aggressive compression wrapping of the left leg and elevation above the level of the heart. He may improve some from iliac vein stenting if this is chronically occluded. Comment Review of Relevant I have reviewed the following items anjana (where applicable) has been applied. Labs Laboratory Tests Test 06/05/18 18:10 06/05/18 20:53 06/06/18 00:15 06/06/18 06:10 Heparin Anti-Xa Act, Unfractionated 0.71 IU/mL (0.30-0.70) 0.47 IU/mL (0.30-0.70) 0.51 IU/mL (0.30-0.70) Glucose (Fingerstick) 195 mg/dL (70-99) White Blood Count 8.3 x10^3/uL (4.0-11.0) Red Blood Count 2.64 x10^6/uL (4.30-5.70) Hemoglobin 8.3 g/dL (13.0-17.5) Hematocrit 25.9 % (39.0-53.0) Mean Corpuscular Volume 98 fL (79-100) Mean Corpuscular Hemoglobin 32 pg (25-35) Mean Corpuscular Hemoglobin Concent 32 g/dL (31-37) Red Cell Distribution Width 18.3 % (11.5-14.5) Platelet Count 148 x10^3/uL (140-400) Neutrophils (%) (Auto) 44 % (31-73) Lymphocytes (%) (Auto) 49 % (24-48) Monocytes (%) (Auto) 6 % (0-9) Eosinophils (%) (Auto) 2 % (0-3) Basophils (%) (Auto) 0 % (0-3) Neutrophils # (Auto) 3.6 x10^3uL (1.8-7.7) Lymphocytes # (Auto) 4.1 x10^3/uL (1.0-4.8) Monocytes # (Auto) 0.5 x10^3/uL (0.0-1.1) Eosinophils # (Auto) 0.1 x10^3/uL (0.0-0.7) Basophils # (Auto) 0.0 x10^3/uL (0.0-0.2) Erythrocyte Sedimentation Rate 90 (0-15) Prothrombin Time 17.9 SEC (11.7-14.0) Prothromb Time International Ratio 1.5 (0.8-1.1) Test 06/06/18 07:16 06/06/18 11:21 06/06/18 16:59 06/06/18 20:28 Glucose (Fingerstick) 174 mg/dL (70-99) 305 mg/dL (70-99) 196 mg/dL (70-99) 168 mg/dL (70-99) Test 06/07/18 04:10 06/07/18 07:36 06/07/18 11:31 06/07/18 16:32 Prothrombin Time 22.1 SEC (11.7-14.0) Prothromb Time International Ratio 2.0 (0.8-1.1) Heparin Anti-Xa Act, Unfractionated 0.45 IU/mL (0.30-0.70) Glucose (Fingerstick) 144 mg/dL (70-99) 216 mg/dL (70-99) 170 mg/dL (70-99) Laboratory Tests Test 06/06/18 20:28 06/07/18 04:10 06/07/18 07:36 06/07/18 11:31 Glucose (Fingerstick) 168 mg/dL (70-99) 144 mg/dL (70-99) 216 mg/dL (70-99) Prothrombin Time 22.1 SEC (11.7-14.0) Prothromb Time International Ratio 2.0 (0.8-1.1) Heparin Anti-Xa Act, Unfractionated 0.45 IU/mL (0.30-0.70) Test 06/07/18 16:32 Glucose (Fingerstick) 170 mg/dL (70-99) Microbiology 05/25/18 Blood Culture - Final, Complete NO GROWTH AFTER 5 DAYS 05/26/18 Urine Culture - Final, Complete 05/26/18 Urine Culture Result 1 (LUCY) - Final, Complete 05/26/18 Anaerobic/Aerobic Culture - Final, Complete 05/26/18 Anaerobic Culture Result 1 (LUCY) - Final, Complete 05/26/18 Aerobic Culture - Final, Complete 05/26/18 Aerobic Culture Result 1 (LUCY) - Final, Complete 05/26/18 Antimicrobic Susceptibility - Final, Complete 05/26/18 Gram Stain - Final, Complete 05/26/18 Gram Stain Result 1 (LUCY) - Final, Complete 05/26/18 Gram Stain Result 2 (LUCY) - Final, Complete Medications Current Medications Sodium Chloride 1,000 ml @ 100 mls/hr Q10H IV Last administered on 06/02/18at 05:50; Start 05/25/18 at 17:54; Stop 06/02/18 at 12:54; Status DC Ondansetron HCl (Zofran) 4 mg PRN Q4HRS PRN IV NAUSEA/VOMITING Last administered on 06/07/18at 10:44; Start 05/25/18 at 18:00 Zolpidem Tartrate (Ambien) 5 mg PRN QHS PRN PO INSOMNIA; Start 05/25/18 at 18: 00 Acetaminophen (Tylenol) 650 mg PRN Q4HRS PRN PO TEMP OVER 100.4F OR MILD PAIN Last administered on 05/26/18at 22:46; Start 05/25/18 at 18:00 Al Hydroxide/Mg Hydroxide (Mylanta Plus Xs) 30 ml PRN DAILY PRN PO HEARTBURN / GAS Last administered on 05/27/18at 17:49; Start 05/25/18 at 18:00 Clonidine HCl (Catapres) 0.1 mg PRN Q6HRS PRN PO SBP>160 OR DBP>90; Start 05/25 at 18:00 Diphenhydramine HCl (Benadryl) 25 mg PRN Q4HRS PRN IVP ITCHING; Start 05/25/18 at 18:00 Docusate Sodium (Colace) 100 mg PRN BID PRN PO CONSTIPATION; Start 05/25/18 at 18:00 Albuterol/ Ipratropium (Duoneb) 3 ml Q4HRS NEB Last administered on 05/31/18at 16:05; Start 05/25/18 at 20:00; Stop 05/31/18 at 18:30; Status DC Guaifenesin (Robitussin) 200 mg PRN Q4HRS PRN PO COUGH 1ST CHOICE; Start at 18:00 Lorazepam (Ativan) 0.5 mg PRN Q4HRS PRN PO ANXIETY / AGITATION Last administered on 05/26/18at 04:30; Start 05/25/18 at 18:00 Enoxaparin Sodium (Lovenox 40mg Syringe) 40 mg DAILY SQ Last administered on at 09:39; Start 05/26/18 at 09:00; Stop 05/26/18 at 16:30; Status DC Piperacillin Sod/ Tazobactam Sod 3.375 gm/Sodium Chloride 50 ml @ 100 mls/hr Q6HRS IV Last administered on 05/30/18at 06:06; Start 05/25/18 at 18:10; Stop at 11:12; Status DC Acetaminophen (Tylenol) 650 mg TID PRN PRN PO PAIN; Start 05/25/18 at 18:15; Status UNV Furosemide (Lasix) 20 mg DAILY PO ; Start 05/26/18 at 09:00; Stop 05/27/18 at 13 :28; Status DC Lisinopril (Prinivil) 20 mg DAILY PO Last administered on 06/07/18at 08:18; Start 05/26/18 at 09:00 Insulin Glargine (Lantus) 20 units BID SQ Last administered on 06/07/18 08:25 ; Start 05/25/18 at 21:00 Pioglitazone HCl (Actos) 45 mg DAILY PO Last administered on 06/07/18 08:17; Start 05/26/18 at 09:00 Sennosides (Senna) 17.2 mg BID PO Last administered on 06/07/18 08:17; Start 05/25/18 at 21:00 Warfarin Sodium (Coumadin) 4 mg DAILY16 PO Last administered on 05/26/18 18:06 ; Start 05/25/18 at 21:00; Stop 05/27/18 at 11:16; Status DC Piperacillin Sod/ Tazobactam Sod 3.375 gm/Sodium Chloride 50 ml @ 100 mls/hr Q6HRS IV ; Start 05/26/18 at 00:00; Status UNV Vancomycin HCl (Vanco Per Pharmacy) 1 each PRN DAILY PRN MC SEE COMMENTS Last administered on 05/26/18at 16:08; Start 05/25/18 at 18:45; Stop 05/26/18 at 18:24 ; Status DC Vancomycin HCl 2 gm/Sodium Chloride 500 ml @ 250 mls/hr 1X ONCE IV Last administered on 05/25/18at 22:34; Start 05/25/18 at 19:00; Stop 05/25/18 at 20:59 ; Status DC Warfarin Sodium (Coumadin Per Physician) 1 each PRN DAILY PRN MC SEE COMMENTS Last administered on 05/26/18at 16:15; Start 05/25/18 at 20:45; Stop 05/27/18 at 11:16; Status DC Vancomycin HCl 1.5 gm/Sodium Chloride 500 ml @ 250 mls/hr Q12H IV Last administered on 05/26/18at 09:39; Start 05/26/18 at 09:00; Stop 05/26/18 at 18:24 ; Status DC Vancomycin HCl (Vancomycin Trough Level) 1 each 1X ONCE MC ; Start 05/27/18 at 08:30; Stop 05/27/18 at 08:30; Status DC Fentanyl Citrate (Fentanyl 2ml Vial) 50 mcg PRN Q3HRS PRN IV MODERATE TO SEVERE PAIN Last administered on 06/06/18at 05:33; Start 05/25/18 at 22:00 Albuterol Sulfate (Ventolin Neb Soln) 2.5 mg PRN Q6HRS PRN INH SHORTNESS OF BREATH; Start 05/26/18 at 10:15 Allopurinol (Zyloprim) 200 mg DAILY PO ; Start 05/26/18 at 11:00; Stop 05/26/18 at 16:09; Status DC Atorvastatin Calcium (Lipitor) 40 mg QHS PO Last administered on 06/06/18at 20: 46; Start 05/26/18 at 21:00 Cetirizine HCl (ZyrTEC) 10 mg DAILY PO Last administered on 06/07/18 08:18; Start 05/26/18 at 10:30 Tamsulosin HCl (Flomax) 0.4 mg DAILY PO Last administered on 06/07/18 08:18; Start 05/26/18 at 10:30 Gabapentin (Neurontin) 600 mg BID PO Last administered on 05/27/18at 08:10; Start 05/26/18 at 10:15; Stop 05/27/18 at 13:29; Status DC Insulin Human Lispro (HumaLOG) 4 units TIDWMEALS SQ Last administered on at 16:41; Start 05/26/18 at 17:00 Insulin Human Lispro (HumaLOG) 0-7 UNITS TIDWMEALS SQ Last administered on 06/07at 16:40; Start 05/26/18 at 17:00 Dextrose (Dextrose 50%-Water Syringe) 12.5 gm PRN Q15MIN PRN IV SEE COMMENTS; Start 05/26/18 at 13:00 Metformin HCl (Glucophage) 1,000 mg BIDWMEALS PO Last administered on at 16:59; Start 05/26/18 at 17:00; Stop 06/01/18 at 17:54; Status DC Linezolid/Dextrose 300 ml @ 300 mls/hr Q12HR IV Last administered on at 11:04; Start 05/26/18 at 21:00; Stop 05/30/18 at 11:12; Status DC Heparin Sodium/ Dextrose 500 ml @ 0 mls/hr CONT PRN IV SEE I/O RECORD Last administered on 06/07/18at 06:10; Start 05/28/18 at 09:00; Stop 06/07/18 at 10:31 ; Status DC Heparin Sodium (Porcine) (Heparin Sodium) 3,400 unit PRN Q6HRS PRN IV FOR UFH LEVEL LESS THAN 0.2; Start 05/28/18 at 09:00; Stop 06/07/18 at 14:51; Status DC Heparin Sodium (Porcine) (Heparin Sodium) 1,700 unit PRN Q6HRS PRN IV FOR UFH LEVEL 0.2 - 0.29 Last administered on 06/02/18 06:17; Start 05/28/18 at 09:00; Stop 06/02/18 at 12:54; Status DC Info (Anti-Coagulation Monitoring By Pharmacy) 1 each PRN DAILY PRN MC SEE COMMENTS Last administered on 06/06/18at 17:38; Start 05/27/18 at 11:30 Lactobacillus Rhamnosus (Culturelle) 1 cap BID PO Last administered on 08:18; Start 05/27/18 at 21:00 Bacitracin/ Polymyxin B Sulfate (Polysporin) 1 ana TID TP Last administered on 06/07/18at 13:49; Start 05/27/18 at 14:00 Gabapentin (Neurontin) 600 mg DAILY08 PO Last administered on 06/07/18 08:18; Start 05/28/18 at 08:00 Gabapentin (Neurontin) 900 mg HS PO Last administered on 06/06/18at 20:46; Start 05/27/18 at 21:00 Oxycodone/ Acetaminophen (Percocet 5/325) 1 tab PRN Q4HRS PRN PO MODERATE TO SEVERE PAIN Last administered on 06/06/18at 05:32; Start 05/27/18 at 14:30; Stop 06/06/18 at 10:30; Status DC Multivitamins (Thera M Plus) 1 tab DAILY PO Last administered on 06/07/18 08: 18; Start 05/28/18 at 17:00 Ascorbic Acid (Vitamin C) 500 mg DAILY PO Last administered on 06/07/18 08:18 ; Start 05/28/18 at 17:00 Ondansetron HCl (Zofran) 4 mg PRN Q6HRS PRN IV NAUSEA/VOMITING; Start 05/30/18 at 07:00; Stop 05/30/18 at 15:00; Status DC Morphine Sulfate (Morphine Sulfate) 1 mg PRN Q10MIN PRN IV SEVERE PAIN Last administered on 05/30/18at 09:29; Start 05/30/18 at 07:00; Stop 05/30/18 at 15:00 ; Status DC Ringer's Solution 1,000 ml @ 30 mls/hr Q24H IV ; Start 05/30/18 at 07:00; Stop 05/30/18 at 11:36; Status DC Lidocaine HCl (Xylocaine-Mpf 1% 2ml Vial) 2 ml PRN 1X PRN ID PRIOR TO IV START ; Start 05/30/18 at 07:00; Stop 05/30/18 at 15:00; Status DC Hydromorphone HCl (Dilaudid) 0.5 mg PRN Q10MIN PRN IV SEV PAIN, Second choice; Start 05/30/18 at 07:00; Stop 05/30/18 at 15:00; Status DC Prochlorperazine Edisylate (Compazine) 5 mg PACU PRN PRN IV NAUSEA, MRX1; Start 05/30/18 at 07:00; Stop 05/30/18 at 15:00; Status DC Albuterol/ Ipratropium (Duoneb) 3 ml 1X ONCE NEB Last administered on at 07:10; Start 05/30/18 at 07:15; Stop 05/30/18 at 07:16; Status DC Fentanyl Citrate (Fentanyl 2ml Vial) 100 mcg STK-MED ONCE .ROUTE ; Start at 07:15; Stop 05/30/18 at 07:16; Status DC Ondansetron HCl (Zofran) 4 mg STK-MED ONCE .ROUTE ; Start 05/30/18 at 08:42; Stop 05/30/18 at 08:43; Status DC Propofol 20 ml @ As Directed STK-MED ONCE IV ; Start 05/30/18 at 08:43; Stop at 08:44; Status DC Lidocaine HCl (Lidocaine Pf 2% Vial) 5 ml STK-MED ONCE .ROUTE ; Start 05/30/18 at 08:43; Stop 05/30/18 at 08:44; Status DC Sevoflurane (Ultane) 30 ml STK-MED ONCE IH ; Start 05/30/18 at 08:44; Stop 05/30 at 08:45; Status DC Cefazolin Sodium/ Dextrose 50 ml @ 100 mls/hr Q8HRS IV ; Start 05/30/18 at 14: 00; Stop 05/30/18 at 14:00; Status DC Cefazolin Sodium 50 ml @ 100 mls/hr Q8HRS IV ; Start 05/30/18 at 14:00; Status UNV Cefazolin Sodium 1 gm/Dextrose 50 ml @ 100 mls/hr Q8HRS IV Last administered on 06/07/18at 13:47; Start 05/30/18 at 14:00 Warfarin Sodium (Coumadin Per Pharmacy) 1 each PRN DAILY PRN MC SEE COMMENTS Last administered on 06/07/18at 14:56; Start 05/31/18 at 14:15 Warfarin Sodium (Coumadin) 5 mg DAILY16 PO Last administered on 05/31/18at 16:54 ; Start 05/31/18 at 16:00; Stop 06/01/18 at 12:58; Status DC Albuterol/ Ipratropium (Duoneb) 3 ml QID NEB Last administered on 06/07/18at 16: 03; Start 05/31/18 at 20:00 Warfarin Sodium (Coumadin) 6 mg 1X WARF ONCE PO Last administered on at 17:47; Start 06/01/18 at 16:00; Stop 06/01/18 at 16:01; Status DC Iohexol (Omnipaque 300 Mg/ml) 60 ml 1X ONCE IV Last administered on 06/01/18 22:03; Start 06/01/18 at 18:00; Stop 06/01/18 at 18:01; Status DC Metformin HCl (Glucophage) 1,000 mg BIDWMEALS PO Last administered on at 16:38; Start 06/04/18 at 08:00 Info (CONTRAST GIVEN -- Rx MONITORING) 1 each PRN DAILY PRN MC SEE COMMENTS; Start 06/01/18 at 18:00; Stop 06/03/18 at 17:59; Status DC Azithromycin (Zithromax) 500 mg 1X ONCE PO Last administered on 06/02/18at 12: 18; Start 06/02/18 at 10:30; Stop 06/02/18 at 10:31; Status DC Azithromycin (Zithromax) 250 mg DAILY PO Last administered on 06/07/18 08:18; Start 06/03/18 at 09:00; Stop 06/07/18 at 09:00; Status DC Warfarin Sodium (Coumadin) 7.5 mg 1X WARF ONCE PO Last administered on 15:59; Start 06/02/18 at 16:00; Stop 06/02/18 at 16:01; Status DC Warfarin Sodium (Coumadin) 7.5 mg 1X WARF ONCE PO ; Start 06/03/18 at 16:00; Stop 06/03/18 at 16:01; Status DC Warfarin Sodium (Coumadin) 7.5 mg 1X WARF ONCE PO Last administered on 16:39; Start 06/04/18 at 16:00; Stop 06/04/18 at 16:01; Status DC Guaifenesin/ Codeine Phosphate (Robitussin Ac) 5 ml PRN Q6HRS PRN PO COUGH 2ND CHOICE Last administered on 06/05/18 21:14; Start 06/04/18 at 18:30 Warfarin Sodium (Coumadin) 9 mg 1X WARF ONCE PO ; Start 06/05/18 at 16:00; Stop 06/05/18 at 16:01; Status Cancel Warfarin Sodium (Coumadin) 9 mg 1X WARF ONCE PO Last administered on 17:06; Start 06/05/18 at 16:00; Stop 06/05/18 at 16:01; Status DC Lidocaine (Lidoderm) 1 patch DAILY TD Last administered on 06/07/18 08:19; Start 06/06/18 at 10:30 Miscellaneous (Lidoderm Patch Removal) 1 ea QHS MC Last administered on 21:00; Start 06/06/18 at 21:00 Oxycodone/ Acetaminophen (Percocet 10/325) 1 tab PRN Q4HRS PRN PO pain Last administered on 06/07/18 14:54; Start 06/06/18 at 10:30 Fentanyl Citrate (Fentanyl 2ml Vial) 50 mcg 1X ONCE IV Last administered on 10:49; Start 06/06/18 at 10:30; Stop 06/06/18 at 10:38; Status DC Fentanyl Citrate (Fentanyl 2ml Vial) 50 mcg PRN Q2HR PRN IV PAIN Last administered on 06/07/18at 14:54; Start 06/06/18 at 10:30 Warfarin Sodium (Coumadin) 9 mg 1X WARF ONCE PO Last administered on at 15:32; Start 06/06/18 at 16:00; Stop 06/06/18 at 16:01; Status DC Warfarin Sodium (Coumadin) 9 mg 1X WARF ONCE PO Last administered on at 16:38; Start 06/07/18 at 16:00; Stop 06/07/18 at 16:01; Status DC Active Scripts Active Reported Preparation H Ointment (Phenyleph/Mineral Oil/Petrolat) 28 Gm Oint.appl 28 Gm RC QID Muscle Rub Cream (Methyl Salicylate/Menthol) 113 Gm Cream..g. 1 Gm TP TID Proair Hfa Inhaler (Albuterol Sulfate) 8.5 Gm Hfa.aer.ad 1 Puff INH PRN Q6HRS PRN Zyrtec (Cetirizine Hcl) 10 Mg Tablet 1 Tab PO DAILY Atorvastatin Calcium 40 Mg Tablet 1 Tab PO QHS Metformin Hcl 1,000 Mg Tablet 1,000 Mg PO BIDWMEALS Gabapentin (Gabapentin) 300 Mg Capsule 300 Mg PO DAILY Gabapentin 600 Mg Tablet 600 Mg PO DAILY08 Flomax (Tamsulosin Hcl) 0.4 Mg Cap.er.24h 1 Cap PO DAILY Tylenol (Acetaminophen) 325 Mg Tablet 2 Tab PO TID PRN PRN Humulin R (Insulin Regular, Human) 100 Unit/1 Ml Vial 100 Unit IJ TIDAC Lisinopril 20 Mg Tablet 1 Tab PO DAILY Furosemide 20 Mg Tablet 1 Tab PO DAILY Coumadin (Warfarin Sodium) 4 Mg Tablet 1 Tab PO DAILY Actos (Pioglitazone Hcl) 45 Mg Tablet 1 Tab PO DAILY Novolin N (Nph, Human Insulin Isophane) 100 Unit/1 Ml Vial 20 Unit SQ BID Senna (Sennosides) 8.6 Mg Tablet 2 Mg PO BID Vitals/I & O Vital Sign - Last 24 Hours 06/06/18 06/06/18 06/06/18 06/06/18 19:45 19:53 20:46 20:47 Temp 98.4 98.4 Pulse 95 Resp 16 B/P (MAP) 118/54 (75) Pulse Ox 91 O2 Delivery Room Air Room Air Room Air Room Air 06/06/18 06/06/18 06/06/18 06/07/18 21:20 23:56 23:57 02:18 Temp 98.6 98.6 Pulse 90 Resp 16 B/P (MAP) 113/61 (78) Pulse Ox 93 91 O2 Delivery Room Air Room Air Room Air Room Air 06/07/18 06/07/18 06/07/18 06/07/18 02:19 03:46 06:12 06:12 Temp 97.5 97.5 Pulse 76 Resp 16 B/P (MAP) 109/60 (76) Pulse Ox 90 O2 Delivery Room Air Room Air Room Air Room Air 06/07/18 06/07/18 06/07/18 06/07/18 07:15 07:32 08:05 08:18 Temp 98.3 98.3 Pulse 72 72 Resp 18 B/P (MAP) 122/65 (84) 122/65 Pulse Ox 94 93 O2 Delivery Room Air Room Air Room Air 06/07/18 06/07/18 06/07/18 06/07/18 10:45 11:00 11:44 11:52 Temp 97.6 97.6 Pulse 71 Resp 18 B/P (MAP) 120/64 (82) Pulse Ox 94 96 O2 Delivery Room Air Room Air Room Air Room Air 06/07/18 06/07/18 06/07/18 06/07/18 14:54 14:54 15:31 16:03 O2 Delivery Room Air Room Air Room Air Room Air 06/07/18 16:05 O2 Delivery Room Air Intake and Output 06/06/18 06/06/18 06/07/18 14:59 22:59 06:59 Intake Total 400 ml 490 ml 750 ml Output Total 1275 ml 700 ml 500 ml Balance -875 ml -210 ml 250 ml SHELDON CUMMINGS MD Jun 07, 2018 17:59
[2018-06-07 19:58] VITALS: BP 92/53
[2018-06-07] MEDS: PATCH REMOVAL. MC SCH (20:57)
[2018-06-07] MEDS: ATORVASTATIN CALCIUM 40 MG TABLET. PO SCH (20:58)
[2018-06-07 23:25] VITALS: BP 92/50
[2018-06-08] VITALS (7 sets, daily range): BP systolic 90–115; BP diastolic 41–55
[2018-06-08] MEDS: fentaNYL PF VIAL 100 MCG/2 ML VIAL IV PRN ×4 (02:05→20:40)
[2018-06-08] MEDS: oxyCODONE/APAP 10/325 1 TAB TABLET PO PRN ×4 (03:13→20:39)
[2018-06-08] MEDS: ceFAZolin SODIUM 1 GM in IV DEXTROSE 5% 50 ML IV SCH ×3 (05:36→21:21)
[2018-06-08 05:38] LABS: PROTHROMBIN TIME PATIENT 23.7 SEC (11.7-14.0)
[2018-06-08] MEDS: IPRATRPIUM/ALBUTEROL 0.5/2.5MG 3 ML NEBU. NEB SCH ×4 (07:08→19:52)
[2018-06-08] MEDS: LISINOPRIL 20 MG TABLET PO SCH (07:55)
[2018-06-08] MEDS: INSULIN LISPRO 300 UNITS/3 ML INSULN.PEN. SQ SCH ×6 (07:55→17:00)
[2018-06-08] MEDS: INSULIN GLARGINE 300 UNITS/3 ML INSULN.PEN. SQ SCH ×2 (07:56→20:52)
[2018-06-08] MEDS: CETIRIZINE HCL 10 MG TABLET. PO SCH (07:57)
[2018-06-08] MEDS: SENNOSIDES 8.6 MG TABLET PO SCH ×2 (07:57→20:28)
[2018-06-08] MEDS: metFORMIN 500 MG TABLET PO SCH ×2 (07:57→16:32)
[2018-06-08] MEDS: PIOGLITAZONE 15 MG TABLET. PO SCH (07:57)
[2018-06-08] MEDS: TAMSULOSIN 0.4 MG CAP.ER.24H. PO SCH (07:57)
[2018-06-08] MEDS: LACTOBACILLUS RHAMNOSUS GG 1 CAPSULE. PO SCH ×2 (07:57→20:29)
[2018-06-08] MEDS: ASCORBIC ACID 500 MG TABLET PO SCH (07:58)
[2018-06-08] MEDS: GABAPENTIN 300 MG CAPSULE. PO SCH ×2 (07:58→20:28)
[2018-06-08] MEDS: MULTIVITAMIN with MINERAL TABLET. PO SCH (07:58)
[2018-06-08] MEDS: LIDOCAINE (700MG/PATCH) PATCH. TD SCH (07:58)
[2018-06-08] MEDS: BACITRACIN/POLYMYXIN B TOPICAL OINT 15GM TUBE. TP SCH ×3 (08:03→20:30)
--- NOTE | 2018-06-08 08:59 | PDOC ---
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 defer to vasc, on Abx recurrent DVT: on coumadin, therapeutic INR, may prefer another agent to coumadin w/ active ca on chemo, though defer to his primary hem/onc doc at this point met RCC: to cont 2nd line tx, he says he started it in [facility] but not sure the name, do not see listed on admit meds, thus may not have been started?, will see if our records folks can get a copy of his last note w/ oncology (ok to have chemo on hold for the minute while getting XRT) pain: getting pall XRT, rec zofran 30 min prior, his RN can help w/ this, has pain meds prn Dispo: after clinical improvement, to f/u w/ his primary oncologist Thank you kindly and please don't hesitate to call w/ further ?s. Objective Objective Vital Signs Date Time Temp Pulse Resp B/P (MAP) Pulse Ox O2 Delivery O2 Flow Rate FiO2 06/08/18 08:23 Room Air 06/08/18 07:55 97.7 83 20 90/49 (63) 93 97.7 06/04/18 22:12 3.0 Intake and Output 06/08/18 07:00 Intake Total 2360 ml Output Total 1100 ml Balance 1260 ml Intake Oral 2260 ml IV Total 100 ml Output Urine Total 1100 ml Comment Review of Relevant I have reviewed the following items anjana (where applicable) has been applied. Labs Laboratory Tests Test 06/06/18 11:21 06/06/18 16:59 06/06/18 20:28 06/07/18 04:10 Glucose (Fingerstick) 305 mg/dL (70-99) 196 mg/dL (70-99) 168 mg/dL (70-99) Prothrombin Time 22.1 SEC (11.7-14.0) Prothromb Time International Ratio 2.0 (0.8-1.1) Heparin Anti-Xa Act, Unfractionated 0.45 IU/mL (0.30-0.70) Test 06/07/18 07:36 06/07/18 11:31 06/07/18 16:32 06/07/18 20:50 Glucose (Fingerstick) 144 mg/dL (70-99) 216 mg/dL (70-99) 170 mg/dL (70-99) 135 mg/dL (70-99) Test 06/08/18 04:43 06/08/18 07:48 Prothrombin Time 23.7 SEC (11.7-14.0) Prothromb Time International Ratio 2.1 (0.8-1.1) Lactic Acid Level 1.3 mmol/L (0.4-2.0) Glucose (Fingerstick) 100 mg/dL (70-99) Laboratory Tests Test 06/07/18 11:31 06/07/18 16:32 06/07/18 20:50 06/08/18 04:43 Glucose (Fingerstick) 216 mg/dL (70-99) 170 mg/dL (70-99) 135 mg/dL (70-99) Prothrombin Time 23.7 SEC (11.7-14.0) Prothromb Time International Ratio 2.1 (0.8-1.1) Lactic Acid Level 1.3 mmol/L (0.4-2.0) Test 06/08/18 07:48 Glucose (Fingerstick) 100 mg/dL (70-99) Microbiology 05/25/18 Blood Culture - Final, Complete NO GROWTH AFTER 5 DAYS 05/26/18 Urine Culture - Final, Complete 05/26/18 Urine Culture Result 1 (LUCY) - Final, Complete 05/26/18 Anaerobic/Aerobic Culture - Final, Complete 05/26/18 Anaerobic Culture Result 1 (LUCY) - Final, Complete 05/26/18 Aerobic Culture - Final, Complete 05/26/18 Aerobic Culture Result 1 (LUCY) - Final, Complete 05/26/18 Antimicrobic Susceptibility - Final, Complete 05/26/18 Gram Stain - Final, Complete 05/26/18 Gram Stain Result 1 (LUCY) - Final, Complete 05/26/18 Gram Stain Result 2 (LUCY) - Final, Complete Medications Current Medications Sodium Chloride 1,000 ml @ 100 mls/hr Q10H IV Last administered on 06/02/18at 05:50; Start 05/25/18 at 17:54; Stop 06/02/18 at 12:54; Status DC Ondansetron HCl (Zofran) 4 mg PRN Q4HRS PRN IV NAUSEA/VOMITING Last administered on 06/07/18at 10:44; Start 05/25/18 at 18:00 Zolpidem Tartrate (Ambien) 5 mg PRN QHS PRN PO INSOMNIA; Start 05/25/18 at 18: 00 Acetaminophen (Tylenol) 650 mg PRN Q4HRS PRN PO TEMP OVER 100.4F OR MILD PAIN Last administered on 05/26/18at 22:46; Start 05/25/18 at 18:00 Al Hydroxide/Mg Hydroxide (Mylanta Plus Xs) 30 ml PRN DAILY PRN PO HEARTBURN / GAS Last administered on 05/27/18at 17:49; Start 05/25/18 at 18:00 Clonidine HCl (Catapres) 0.1 mg PRN Q6HRS PRN PO SBP>160 OR DBP>90; Start 05/25 at 18:00 Diphenhydramine HCl (Benadryl) 25 mg PRN Q4HRS PRN IVP ITCHING; Start 05/25/18 at 18:00 Docusate Sodium (Colace) 100 mg PRN BID PRN PO CONSTIPATION; Start 05/25/18 at 18:00 Albuterol/ Ipratropium (Duoneb) 3 ml Q4HRS NEB Last administered on 05/31/18at 16:05; Start 05/25/18 at 20:00; Stop 05/31/18 at 18:30; Status DC Guaifenesin (Robitussin) 200 mg PRN Q4HRS PRN PO COUGH 1ST CHOICE; Start at 18:00 Lorazepam (Ativan) 0.5 mg PRN Q4HRS PRN PO ANXIETY / AGITATION Last administered on 05/26/18at 04:30; Start 05/25/18 at 18:00 Enoxaparin Sodium (Lovenox 40mg Syringe) 40 mg DAILY SQ Last administered on at 09:39; Start 05/26/18 at 09:00; Stop 05/26/18 at 16:30; Status DC Piperacillin Sod/ Tazobactam Sod 3.375 gm/Sodium Chloride 50 ml @ 100 mls/hr Q6HRS IV Last administered on 05/30/18at 06:06; Start 05/25/18 at 18:10; Stop at 11:12; Status DC Acetaminophen (Tylenol) 650 mg TID PRN PRN PO PAIN; Start 05/25/18 at 18:15; Status UNV Furosemide (Lasix) 20 mg DAILY PO ; Start 05/26/18 at 09:00; Stop 05/27/18 at 13 :28; Status DC Lisinopril (Prinivil) 20 mg DAILY PO Last administered on 06/07/18at 08:18; Start 05/26/18 at 09:00 Insulin Glargine (Lantus) 20 units BID SQ Last administered on 06/07/18 21:05 ; Start 05/25/18 at 21:00 Pioglitazone HCl (Actos) 45 mg DAILY PO Last administered on 06/08/18 07:57; Start 05/26/18 at 09:00 Sennosides (Senna) 17.2 mg BID PO Last administered on 06/08/18at 07:57; Start 05/25/18 at 21:00 Warfarin Sodium (Coumadin) 4 mg DAILY16 PO Last administered on 05/26/18at 18:06 ; Start 05/25/18 at 21:00; Stop 05/27/18 at 11:16; Status DC Piperacillin Sod/ Tazobactam Sod 3.375 gm/Sodium Chloride 50 ml @ 100 mls/hr Q6HRS IV ; Start 05/26/18 at 00:00; Status UNV Vancomycin HCl (Vanco Per Pharmacy) 1 each PRN DAILY PRN MC SEE COMMENTS Last administered on 05/26/18at 16:08; Start 05/25/18 at 18:45; Stop 05/26/18 at 18:24 ; Status DC Vancomycin HCl 2 gm/Sodium Chloride 500 ml @ 250 mls/hr 1X ONCE IV Last administered on 05/25/18at 22:34; Start 05/25/18 at 19:00; Stop 05/25/18 at 20:59 ; Status DC Warfarin Sodium (Coumadin Per Physician) 1 each PRN DAILY PRN MC SEE COMMENTS Last administered on 05/26/18at 16:15; Start 05/25/18 at 20:45; Stop 05/27/18 at 11:16; Status DC Vancomycin HCl 1.5 gm/Sodium Chloride 500 ml @ 250 mls/hr Q12H IV Last administered on 05/26/18at 09:39; Start 05/26/18 at 09:00; Stop 05/26/18 at 18:24 ; Status DC Vancomycin HCl (Vancomycin Trough Level) 1 each 1X ONCE MC ; Start 05/27/18 at 08:30; Stop 05/27/18 at 08:30; Status DC Fentanyl Citrate (Fentanyl 2ml Vial) 50 mcg PRN Q3HRS PRN IV MODERATE TO SEVERE PAIN Last administered on 06/06/18at 05:33; Start 05/25/18 at 22:00 Albuterol Sulfate (Ventolin Neb Soln) 2.5 mg PRN Q6HRS PRN INH SHORTNESS OF BREATH; Start 05/26/18 at 10:15 Allopurinol (Zyloprim) 200 mg DAILY PO ; Start 05/26/18 at 11:00; Stop 05/26/18 at 16:09; Status DC Atorvastatin Calcium (Lipitor) 40 mg QHS PO Last administered on 06/07/18at 20: 58; Start 05/26/18 at 21:00 Cetirizine HCl (ZyrTEC) 10 mg DAILY PO Last administered on 06/08/18at 07:57; Start 05/26/18 at 10:30 Tamsulosin HCl (Flomax) 0.4 mg DAILY PO Last administered on 06/08/18 07:57; Start 05/26/18 at 10:30 Gabapentin (Neurontin) 600 mg BID PO Last administered on 05/27/18at 08:10; Start 05/26/18 at 10:15; Stop 05/27/18 at 13:29; Status DC Insulin Human Lispro (HumaLOG) 4 units TIDWMEALS SQ Last administered on at 16:41; Start 05/26/18 at 17:00 Insulin Human Lispro (HumaLOG) 0-7 UNITS TIDWMEALS SQ Last administered on 06/07at 16:40; Start 05/26/18 at 17:00 Dextrose (Dextrose 50%-Water Syringe) 12.5 gm PRN Q15MIN PRN IV SEE COMMENTS; Start 05/26/18 at 13:00 Metformin HCl (Glucophage) 1,000 mg BIDWMEALS PO Last administered on at 16:59; Start 05/26/18 at 17:00; Stop 06/01/18 at 17:54; Status DC Linezolid/Dextrose 300 ml @ 300 mls/hr Q12HR IV Last administered on at 11:04; Start 05/26/18 at 21:00; Stop 05/30/18 at 11:12; Status DC Heparin Sodium/ Dextrose 500 ml @ 0 mls/hr CONT PRN IV SEE I/O RECORD Last administered on 06/07/18at 06:10; Start 05/28/18 at 09:00; Stop 06/07/18 at 10:31 ; Status DC Heparin Sodium (Porcine) (Heparin Sodium) 3,400 unit PRN Q6HRS PRN IV FOR UFH LEVEL LESS THAN 0.2; Start 05/28/18 at 09:00; Stop 06/07/18 at 14:51; Status DC Heparin Sodium (Porcine) (Heparin Sodium) 1,700 unit PRN Q6HRS PRN IV FOR UFH LEVEL 0.2 - 0.29 Last administered on 06/02/18at 06:17; Start 05/28/18 at 09:00; Stop 06/02/18 at 12:54; Status DC Info (Anti-Coagulation Monitoring By Pharmacy) 1 each PRN DAILY PRN MC SEE COMMENTS Last administered on 06/06/18at 17:38; Start 05/27/18 at 11:30 Lactobacillus Rhamnosus (Culturelle) 1 cap BID PO Last administered on at 07:57; Start 05/27/18 at 21:00 Bacitracin/ Polymyxin B Sulfate (Polysporin) 1 ana TID TP Last administered on 06/07/18at 20:57; Start 05/27/18 at 14:00 Gabapentin (Neurontin) 600 mg DAILY08 PO Last administered on 06/08/18 07:58; Start 05/28/18 at 08:00 Gabapentin (Neurontin) 900 mg HS PO Last administered on 06/07/18at 20:59; Start 05/27/18 at 21:00 Oxycodone/ Acetaminophen (Percocet 5/325) 1 tab PRN Q4HRS PRN PO MODERATE TO SEVERE PAIN Last administered on 06/06/18at 05:32; Start 05/27/18 at 14:30; Stop 06/06/18 at 10:30; Status DC Multivitamins (Thera M Plus) 1 tab DAILY PO Last administered on 06/08/18 07: 58; Start 05/28/18 at 17:00 Ascorbic Acid (Vitamin C) 500 mg DAILY PO Last administered on 06/08/18 07:58 ; Start 05/28/18 at 17:00 Ondansetron HCl (Zofran) 4 mg PRN Q6HRS PRN IV NAUSEA/VOMITING; Start 05/30/18 at 07:00; Stop 05/30/18 at 15:00; Status DC Morphine Sulfate (Morphine Sulfate) 1 mg PRN Q10MIN PRN IV SEVERE PAIN Last administered on 05/30/18at 09:29; Start 05/30/18 at 07:00; Stop 05/30/18 at 15:00 ; Status DC Ringer's Solution 1,000 ml @ 30 mls/hr Q24H IV ; Start 05/30/18 at 07:00; Stop 05/30/18 at 11:36; Status DC Lidocaine HCl (Xylocaine-Mpf 1% 2ml Vial) 2 ml PRN 1X PRN ID PRIOR TO IV START ; Start 05/30/18 at 07:00; Stop 05/30/18 at 15:00; Status DC Hydromorphone HCl (Dilaudid) 0.5 mg PRN Q10MIN PRN IV SEV PAIN, Second choice; Start 05/30/18 at 07:00; Stop 05/30/18 at 15:00; Status DC Prochlorperazine Edisylate (Compazine) 5 mg PACU PRN PRN IV NAUSEA, MRX1; Start 05/30/18 at 07:00; Stop 05/30/18 at 15:00; Status DC Albuterol/ Ipratropium (Duoneb) 3 ml 1X ONCE NEB Last administered on at 07:10; Start 05/30/18 at 07:15; Stop 05/30/18 at 07:16; Status DC Fentanyl Citrate (Fentanyl 2ml Vial) 100 mcg STK-MED ONCE .ROUTE ; Start at 07:15; Stop 05/30/18 at 07:16; Status DC Ondansetron HCl (Zofran) 4 mg STK-MED ONCE .ROUTE ; Start 05/30/18 at 08:42; Stop 05/30/18 at 08:43; Status DC Propofol 20 ml @ As Directed STK-MED ONCE IV ; Start 05/30/18 at 08:43; Stop at 08:44; Status DC Lidocaine HCl (Lidocaine Pf 2% Vial) 5 ml STK-MED ONCE .ROUTE ; Start 05/30/18 at 08:43; Stop 05/30/18 at 08:44; Status DC Sevoflurane (Ultane) 30 ml STK-MED ONCE IH ; Start 05/30/18 at 08:44; Stop 05/30 at 08:45; Status DC Cefazolin Sodium/ Dextrose 50 ml @ 100 mls/hr Q8HRS IV ; Start 05/30/18 at 14: 00; Stop 05/30/18 at 14:00; Status DC Cefazolin Sodium 50 ml @ 100 mls/hr Q8HRS IV ; Start 05/30/18 at 14:00; Status UNV Cefazolin Sodium 1 gm/Dextrose 50 ml @ 100 mls/hr Q8HRS IV Last administered on 06/08/18at 05:36; Start 05/30/18 at 14:00 Warfarin Sodium (Coumadin Per Pharmacy) 1 each PRN DAILY PRN MC SEE COMMENTS Last administered on 06/07/18at 14:56; Start 05/31/18 at 14:15 Warfarin Sodium (Coumadin) 5 mg DAILY16 PO Last administered on 05/31/18at 16:54 ; Start 05/31/18 at 16:00; Stop 06/01/18 at 12:58; Status DC Albuterol/ Ipratropium (Duoneb) 3 ml QID NEB Last administered on 06/08/18at 07: 08; Start 05/31/18 at 20:00 Warfarin Sodium (Coumadin) 6 mg 1X WARF ONCE PO Last administered on at 17:47; Start 06/01/18 at 16:00; Stop 06/01/18 at 16:01; Status DC Iohexol (Omnipaque 300 Mg/ml) 60 ml 1X ONCE IV Last administered on 06/01/18at 22:03; Start 06/01/18 at 18:00; Stop 06/01/18 at 18:01; Status DC Metformin HCl (Glucophage) 1,000 mg BIDWMEALS PO Last administered on at 07:57; Start 06/04/18 at 08:00 Info (CONTRAST GIVEN -- Rx MONITORING) 1 each PRN DAILY PRN MC SEE COMMENTS; Start 06/01/18 at 18:00; Stop 06/03/18 at 17:59; Status DC Azithromycin (Zithromax) 500 mg 1X ONCE PO Last administered on 06/02/18at 12: 18; Start 06/02/18 at 10:30; Stop 06/02/18 at 10:31; Status DC Azithromycin (Zithromax) 250 mg DAILY PO Last administered on 06/07/18at 08:18; Start 06/03/18 at 09:00; Stop 06/07/18 at 09:00; Status DC Warfarin Sodium (Coumadin) 7.5 mg 1X WARF ONCE PO Last administered on at 15:59; Start 06/02/18 at 16:00; Stop 06/02/18 at 16:01; Status DC Warfarin Sodium (Coumadin) 7.5 mg 1X WARF ONCE PO ; Start 06/03/18 at 16:00; Stop 06/03/18 at 16:01; Status DC Warfarin Sodium (Coumadin) 7.5 mg 1X WARF ONCE PO Last administered on at 16:39; Start 06/04/18 at 16:00; Stop 06/04/18 at 16:01; Status DC Guaifenesin/ Codeine Phosphate (Robitussin Ac) 5 ml PRN Q6HRS PRN PO COUGH 2ND CHOICE Last administered on 06/05/18at 21:14; Start 06/04/18 at 18:30 Warfarin Sodium (Coumadin) 9 mg 1X WARF ONCE PO ; Start 06/05/18 at 16:00; Stop 06/05/18 at 16:01; Status Cancel Warfarin Sodium (Coumadin) 9 mg 1X WARF ONCE PO Last administered on 17:06; Start 06/05/18 at 16:00; Stop 06/05/18 at 16:01; Status DC Lidocaine (Lidoderm) 1 patch DAILY TD Last administered on 06/08/18 07:58; Start 06/06/18 at 10:30 Miscellaneous (Lidoderm Patch Removal) 1 ea QHS MC Last administered on 20:57; Start 06/06/18 at 21:00 Oxycodone/ Acetaminophen (Percocet 10/325) 1 tab PRN Q4HRS PRN PO pain Last administered on 06/08/18 07:58; Start 06/06/18 at 10:30 Fentanyl Citrate (Fentanyl 2ml Vial) 50 mcg 1X ONCE IV Last administered on 10:49; Start 06/06/18 at 10:30; Stop 06/06/18 at 10:38; Status DC Fentanyl Citrate (Fentanyl 2ml Vial) 50 mcg PRN Q2HR PRN IV PAIN Last administered on 06/08/18 08:00; Start 06/06/18 at 10:30 Warfarin Sodium (Coumadin) 9 mg 1X WARF ONCE PO Last administered on 15:32; Start 06/06/18 at 16:00; Stop 06/06/18 at 16:01; Status DC Warfarin Sodium (Coumadin) 9 mg 1X WARF ONCE PO Last administered on 16:38; Start 06/07/18 at 16:00; Stop 06/07/18 at 16:01; Status DC Active Scripts Active Reported Preparation H Ointment (Phenyleph/Mineral Oil/Petrolat) 28 Gm Oint.appl 28 Gm RC QID Muscle Rub Cream (Methyl Salicylate/Menthol) 113 Gm Cream..g. 1 Gm TP TID Proair Hfa Inhaler (Albuterol Sulfate) 8.5 Gm Hfa.aer.ad 1 Puff INH PRN Q6HRS PRN Zyrtec (Cetirizine Hcl) 10 Mg Tablet 1 Tab PO DAILY Atorvastatin Calcium 40 Mg Tablet 1 Tab PO QHS Metformin Hcl 1,000 Mg Tablet 1,000 Mg PO BIDWMEALS Gabapentin (Gabapentin) 300 Mg Capsule 300 Mg PO DAILY Gabapentin 600 Mg Tablet 600 Mg PO DAILY08 Flomax (Tamsulosin Hcl) 0.4 Mg Cap.er.24h 1 Cap PO DAILY Tylenol (Acetaminophen) 325 Mg Tablet 2 Tab PO TID PRN PRN Humulin R (Insulin Regular, Human) 100 Unit/1 Ml Vial 100 Unit IJ TIDAC Lisinopril 20 Mg Tablet 1 Tab PO DAILY Furosemide 20 Mg Tablet 1 Tab PO DAILY Coumadin (Warfarin Sodium) 4 Mg Tablet 1 Tab PO DAILY Actos (Pioglitazone Hcl) 45 Mg Tablet 1 Tab PO DAILY Novolin N (Nph, Human Insulin Isophane) 100 Unit/1 Ml Vial 20 Unit SQ BID Senna (Sennosides) 8.6 Mg Tablet 2 Mg PO BID Vitals/I & O Vital Sign - Last 24 Hours 06/07/18 06/07/18 06/07/18 06/07/18 10:45 11:00 11:44 11:52 Temp 97.6 97.6 Pulse 71 Resp 18 B/P (MAP) 120/64 (82) Pulse Ox 94 96 O2 Delivery Room Air Room Air Room Air Room Air 06/07/18 06/07/18 06/07/18 06/07/18 14:54 14:54 16:03 19:00 O2 Delivery Room Air Room Air Room Air Room Air 06/07/18 06/07/18 06/07/18 06/07/18 19:02 19:58 20:32 20:58 Temp 98.0 98.0 Pulse 80 Resp 18 16 18 B/P (MAP) 92/53 (66) Pulse Ox 96 91 91 O2 Delivery Room Air Room Air Room Air Room Air 06/07/18 06/08/18 06/08/18 06/08/18 23:25 02:05 02:35 03:13 Temp 97.9 97.9 Pulse 81 Resp 16 16 16 18 B/P (MAP) 92/50 (64) Pulse Ox 91 91 91 91 O2 Delivery Room Air Room Air Room Air 06/08/18 06/08/18 06/08/18 06/08/18 03:15 03:58 07:15 07:16 Temp 97.6 97.6 Pulse 82 Resp 16 15 B/P (MAP) 98/55 (69) Pulse Ox 90 90 91 O2 Delivery Room Air Room Air Room Air Room Air 06/08/18 06/08/18 06/08/18 06/08/18 07:55 07:55 07:58 08:00 Temp 97.7 97.7 Pulse 83 83 Resp 20 B/P (MAP) 90/49 90/49 (63) Pulse Ox 93 O2 Delivery Room Air Room Air Room Air 06/08/18 08:23 O2 Delivery Room Air Intake and Output 06/07/18 06/07/18 06/08/18 15:00 23:00 07:00 Intake Total 360 ml 550 ml 1450 ml Output Total 1100 ml Balance 360 ml 550 ml 350 ml FER LOVE MD Jun 08, 2018 08:59
--- NOTE | 2018-06-08 09:34 | PDOC ---
PULMONARY PROGRESS NOTES Subjective SOME NAUSEA NOT MORE SOA NO HEMOPTYSIS Vitals Vital Signs Date Time Temp Pulse Resp B/P (MAP) Pulse Ox O2 Delivery O2 Flow Rate FiO2 06/08/18 09:02 Room Air 06/08/18 07:55 97.7 83 20 90/49 (63) 93 97.7 ROS: No Increase Cough General: Alert, No acute distress Lungs: Clear Cardiovascular: S1 Abdomen: Soft, Other (obese) Neuro Exam: Alert Extremities: Other (cellulitis left leg) Labs Laboratory Tests Test 06/06/18 11:21 06/06/18 16:59 06/06/18 20:28 06/07/18 04:10 Glucose (Fingerstick) 305 mg/dL (70-99) 196 mg/dL (70-99) 168 mg/dL (70-99) Prothrombin Time 22.1 SEC (11.7-14.0) Prothromb Time International Ratio 2.0 (0.8-1.1) Heparin Anti-Xa Act, Unfractionated 0.45 IU/mL (0.30-0.70) Test 06/07/18 07:36 06/07/18 11:31 06/07/18 16:32 06/07/18 20:50 Glucose (Fingerstick) 144 mg/dL (70-99) 216 mg/dL (70-99) 170 mg/dL (70-99) 135 mg/dL (70-99) Test 06/08/18 04:43 06/08/18 07:48 Prothrombin Time 23.7 SEC (11.7-14.0) Prothromb Time International Ratio 2.1 (0.8-1.1) Lactic Acid Level 1.3 mmol/L (0.4-2.0) Glucose (Fingerstick) 100 mg/dL (70-99) Laboratory Tests Test 06/07/18 11:31 06/07/18 16:32 06/07/18 20:50 06/08/18 04:43 Glucose (Fingerstick) 216 mg/dL (70-99) 170 mg/dL (70-99) 135 mg/dL (70-99) Prothrombin Time 23.7 SEC (11.7-14.0) Prothromb Time International Ratio 2.1 (0.8-1.1) Lactic Acid Level 1.3 mmol/L (0.4-2.0) Test 06/08/18 07:48 Glucose (Fingerstick) 100 mg/dL (70-99) Medications Active Scripts Medications Dose Route/Sig Max Daily Dose Days Date Category Preparation H Ointment (Phenyleph/Mineral Oil/Petrolat) 28 Gm Oint.appl 28 Gm RC QID 05/25/18 Reported Muscle Rub Cream (Methyl Salicylate/Menthol) 113 Gm Cream..g. 1 Gm TP TID 05/25/18 Reported Proair Hfa Inhaler (Albuterol Sulfate) 8.5 Gm Hfa.aer.ad 1 Puff INH PRN Q6HRS PRN 05/25/18 Reported Zyrtec (Cetirizine Hcl) 10 Mg Tablet 1 Tab PO DAILY 05/25/18 Reported Atorvastatin Calcium 40 Mg Tablet 1 Tab PO QHS 05/25/18 Reported Metformin Hcl 1,000 Mg Tablet 1,000 Mg PO BIDWMEALS 05/25/18 Reported Gabapentin (Gabapentin) 300 Mg Capsule 300 Mg PO DAILY 05/25/18 Reported Gabapentin 600 Mg Tablet 600 Mg PO DAILY08 05/25/18 Reported Flomax (Tamsulosin Hcl) 0.4 Mg Cap.er.24h 1 Cap PO DAILY 05/25/18 Reported Tylenol (Acetaminophen) 325 Mg Tablet 2 Tab PO TID PRN PRN 05/25/18 Reported Humulin R (Insulin Regular, Human) 100 Unit/1 Ml Vial 100 Unit IJ TIDAC 05/25/18 Reported Lisinopril 20 Mg Tablet 1 Tab PO DAILY 05/25/18 Reported Furosemide 20 Mg Tablet 1 Tab PO DAILY 05/25/18 Reported Coumadin (Warfarin Sodium) 4 Mg Tablet 1 Tab PO DAILY 05/25/18 Reported Actos (Pioglitazone Hcl) 45 Mg Tablet 1 Tab PO DAILY 05/25/18 Reported Novolin N (Nph, Human Insulin Isophane) 100 Unit/1 Ml Vial 20 Unit SQ BID 05/25/18 Reported Senna (Sennosides) 8.6 Mg Tablet 2 Mg PO BID 05/25/18 Reported Impression . 1. Multiple metastatic nodules in the lungs, likely related to underlying renal cell cancer with lung metastasis. He underwent right nephrectomy in 2011 for renal cancer. 2. History of chronic deep venous thrombosis since 1988. His venous Dopplers showing persistent deep venous thrombus in 2016 as well as from 02/2018. He will need lifelong anticoagulation. He likely has hypercoagulable state secondary to underlying malignancy. 3. Left lower extremity cellulitis, status post wound infection and wound VAC. Vascular Surgery following. 4. No significant history of tobacco use. 5. Hemoptysis IMPROVING 6. Anemia, needs to be closely followed up. Plan . CONTROL NAUSEA NO SURGERY SCHEDULE PALLIATIVE RADIATION RESP STATUS IS COMPENSATED WILL CONTINUE THE SAME PT/OT CONTINUE ANTIBX COUMADIN FOLLOW ONCO INPUT WOUND VAC SANDER MARAVILLA MD Jun 08, 2018 09:34
--- NOTE | 2018-06-08 11:05 | PDOC ---
PROGRESS NOTES Chief Complaint Chief Complaint 1. marked complicated acute cellulitis left lower leg, - needed wound vac 2. Occlusive thrombus left femoral vein-possibly remnant of previous DVT on that same leg 3. diabetes 2, mod control 4. hypertension 5. OBESITY, BMI 38 6. [employer] prisoner low security 7. mod protein, caloric malnutrition 8. 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 ThromboCytopenia, platelets 136 with some hemoptysis 11. INmate 12,. 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- for 5 day radiaton tx History of Present Illness History of Present Illness left leg induration redness and swelling seems better from the thigh - vasc sx did ff up - no intervention - cont iV Abx and leg elevation to heart level But still on the lee quite significant findings - Wound care has DC'd wound VAC because the left leg was worse on Monday INR is therapeutic 2.1 so far no worsening hemoptysis, platelets low Heparin drip off [facility] can take IV antibiotics, wound care, wound VAC And also radiation therapy for 5 days for that isolated ninth rib metastatic lesion emesis today and yesterday Plan: PICC line today if ID agrees INR is 2.1-hopefully IR can do a PICC Patient has multiple DVTs and possible PE/lung metastases hence he was on heparin drip for quite a while Wound care to see the patient later today see if we can reinsert wound VAC if needed NEed to iron out these things first before sending back to penit[facility]iary - unlikely today - AIM for monday Vitals Vitals Vital Signs Date Time Temp Pulse Resp B/P (MAP) Pulse Ox O2 Delivery O2 Flow Rate FiO2 06/08/18 09:02 Room Air 06/08/18 07:55 97.7 83 20 90/49 (63) 93 97.7 Physical Exam Physical Exam GENERAL: Propped up in bed, sleepy HEENT: Oral cavity, pharynx pink and moist. cluster herpetic-type lesions about the mouth/nares - dry/clearing NECK: Supple. LUNGS: Clear to auscultation. HEART: S1 and S2. ABDOMEN: Obese, soft and nontender with bowel sounds present. EXTREMITIES: LLE edema and tenderness in the thighs, Lt lower ext wound vac in place + warmth and localized redness. SKIN: without rash NEUROLOGIC: Sleepy, responds appropriately General: Alert, Oriented X3, Cooperative Heart: Regular rate Lungs: Clear Abdomen: Normal bowel sounds, No hepatosplenomegaly, Other (obese) Extremities: No clubbing, No cyanosis, No edema, Other (has wound vac left lee ) Skin: Other (as above, also almost petechial like rase right cheek which he says was due to med reaction) Labs LABS Laboratory Tests Test 06/07/18 11:31 06/07/18 16:32 06/07/18 20:50 06/08/18 04:43 Glucose (Fingerstick) 216 mg/dL (70-99) 170 mg/dL (70-99) 135 mg/dL (70-99) Prothrombin Time 23.7 SEC (11.7-14.0) Prothromb Time International Ratio 2.1 (0.8-1.1) Lactic Acid Level 1.3 mmol/L (0.4-2.0) Test 06/08/18 07:48 Glucose (Fingerstick) 100 mg/dL (70-99) Review of Systems Review of Systems emesis, leg hurts Nauseated, the rest of ROS 14 point negative Comment Review of Relevant I have reviewed the following items anjana (where applicable) has been applied. Labs Laboratory Tests Test 06/06/18 11:21 06/06/18 16:59 06/06/18 20:28 06/07/18 04:10 Glucose (Fingerstick) 305 mg/dL (70-99) 196 mg/dL (70-99) 168 mg/dL (70-99) Prothrombin Time 22.1 SEC (11.7-14.0) Prothromb Time International Ratio 2.0 (0.8-1.1) Heparin Anti-Xa Act, Unfractionated 0.45 IU/mL (0.30-0.70) Test 06/07/18 07:36 06/07/18 11:31 06/07/18 16:32 06/07/18 20:50 Glucose (Fingerstick) 144 mg/dL (70-99) 216 mg/dL (70-99) 170 mg/dL (70-99) 135 mg/dL (70-99) Test 06/08/18 04:43 06/08/18 07:48 Prothrombin Time 23.7 SEC (11.7-14.0) Prothromb Time International Ratio 2.1 (0.8-1.1) Lactic Acid Level 1.3 mmol/L (0.4-2.0) Glucose (Fingerstick) 100 mg/dL (70-99) Laboratory Tests Test 06/07/18 11:31 06/07/18 16:32 06/07/18 20:50 06/08/18 04:43 Glucose (Fingerstick) 216 mg/dL (70-99) 170 mg/dL (70-99) 135 mg/dL (70-99) Prothrombin Time 23.7 SEC (11.7-14.0) Prothromb Time International Ratio 2.1 (0.8-1.1) Lactic Acid Level 1.3 mmol/L (0.4-2.0) Test 06/08/18 07:48 Glucose (Fingerstick) 100 mg/dL (70-99) Microbiology 05/25/18 Blood Culture - Final, Complete NO GROWTH AFTER 5 DAYS 05/26/18 Urine Culture - Final, Complete 05/26/18 Urine Culture Result 1 (LUCY) - Final, Complete 05/26/18 Anaerobic/Aerobic Culture - Final, Complete 05/26/18 Anaerobic Culture Result 1 (LUCY) - Final, Complete 05/26/18 Aerobic Culture - Final, Complete 05/26/18 Aerobic Culture Result 1 (LUCY) - Final, Complete 05/26/18 Antimicrobic Susceptibility - Final, Complete 05/26/18 Gram Stain - Final, Complete 05/26/18 Gram Stain Result 1 (LUCY) - Final, Complete 05/26/18 Gram Stain Result 2 (LUCY) - Final, Complete Medications Current Medications Sodium Chloride 1,000 ml @ 100 mls/hr Q10H IV Last administered on 06/02/18at 05:50; Start 05/25/18 at 17:54; Stop 06/02/18 at 12:54; Status DC Ondansetron HCl (Zofran) 4 mg PRN Q4HRS PRN IV NAUSEA/VOMITING Last administered on 06/07/18at 10:44; Start 05/25/18 at 18:00 Zolpidem Tartrate (Ambien) 5 mg PRN QHS PRN PO INSOMNIA; Start 05/25/18 at 18: 00 Acetaminophen (Tylenol) 650 mg PRN Q4HRS PRN PO TEMP OVER 100.4F OR MILD PAIN Last administered on 05/26/18at 22:46; Start 05/25/18 at 18:00 Al Hydroxide/Mg Hydroxide (Mylanta Plus Xs) 30 ml PRN DAILY PRN PO HEARTBURN / GAS Last administered on 05/27/18at 17:49; Start 05/25/18 at 18:00 Clonidine HCl (Catapres) 0.1 mg PRN Q6HRS PRN PO SBP>160 OR DBP>90; Start 05/25 at 18:00 Diphenhydramine HCl (Benadryl) 25 mg PRN Q4HRS PRN IVP ITCHING; Start 05/25/18 at 18:00 Docusate Sodium (Colace) 100 mg PRN BID PRN PO CONSTIPATION; Start 05/25/18 at 18:00 Albuterol/ Ipratropium (Duoneb) 3 ml Q4HRS NEB Last administered on 05/31/18at 16:05; Start 05/25/18 at 20:00; Stop 05/31/18 at 18:30; Status DC Guaifenesin (Robitussin) 200 mg PRN Q4HRS PRN PO COUGH 1ST CHOICE; Start at 18:00 Lorazepam (Ativan) 0.5 mg PRN Q4HRS PRN PO ANXIETY / AGITATION Last administered on 05/26/18at 04:30; Start 05/25/18 at 18:00 Enoxaparin Sodium (Lovenox 40mg Syringe) 40 mg DAILY SQ Last administered on at 09:39; Start 05/26/18 at 09:00; Stop 05/26/18 at 16:30; Status DC Piperacillin Sod/ Tazobactam Sod 3.375 gm/Sodium Chloride 50 ml @ 100 mls/hr Q6HRS IV Last administered on 05/30/18at 06:06; Start 05/25/18 at 18:10; Stop at 11:12; Status DC Acetaminophen (Tylenol) 650 mg TID PRN PRN PO PAIN; Start 05/25/18 at 18:15; Status UNV Furosemide (Lasix) 20 mg DAILY PO ; Start 05/26/18 at 09:00; Stop 05/27/18 at 13 :28; Status DC Lisinopril (Prinivil) 20 mg DAILY PO Last administered on 06/07/18 08:18; Start 05/26/18 at 09:00 Insulin Glargine (Lantus) 20 units BID SQ Last administered on 06/07/18at 21:05 ; Start 05/25/18 at 21:00 Pioglitazone HCl (Actos) 45 mg DAILY PO Last administered on 06/08/18 07:57; Start 05/26/18 at 09:00 Sennosides (Senna) 17.2 mg BID PO Last administered on 06/08/18 07:57; Start 05/25/18 at 21:00 Warfarin Sodium (Coumadin) 4 mg DAILY16 PO Last administered on 05/26/18 18:06 ; Start 05/25/18 at 21:00; Stop 05/27/18 at 11:16; Status DC Piperacillin Sod/ Tazobactam Sod 3.375 gm/Sodium Chloride 50 ml @ 100 mls/hr Q6HRS IV ; Start 05/26/18 at 00:00; Status UNV Vancomycin HCl (Vanco Per Pharmacy) 1 each PRN DAILY PRN MC SEE COMMENTS Last administered on 05/26/18at 16:08; Start 05/25/18 at 18:45; Stop 05/26/18 at 18:24 ; Status DC Vancomycin HCl 2 gm/Sodium Chloride 500 ml @ 250 mls/hr 1X ONCE IV Last administered on 05/25/18at 22:34; Start 05/25/18 at 19:00; Stop 05/25/18 at 20:59 ; Status DC Warfarin Sodium (Coumadin Per Physician) 1 each PRN DAILY PRN MC SEE COMMENTS Last administered on 05/26/18at 16:15; Start 05/25/18 at 20:45; Stop 05/27/18 at 11:16; Status DC Vancomycin HCl 1.5 gm/Sodium Chloride 500 ml @ 250 mls/hr Q12H IV Last administered on 05/26/18at 09:39; Start 05/26/18 at 09:00; Stop 05/26/18 at 18:24 ; Status DC Vancomycin HCl (Vancomycin Trough Level) 1 each 1X ONCE MC ; Start 05/27/18 at 08:30; Stop 05/27/18 at 08:30; Status DC Fentanyl Citrate (Fentanyl 2ml Vial) 50 mcg PRN Q3HRS PRN IV MODERATE TO SEVERE PAIN Last administered on 06/06/18at 05:33; Start 05/25/18 at 22:00 Albuterol Sulfate (Ventolin Neb Soln) 2.5 mg PRN Q6HRS PRN INH SHORTNESS OF BREATH; Start 05/26/18 at 10:15 Allopurinol (Zyloprim) 200 mg DAILY PO ; Start 05/26/18 at 11:00; Stop 05/26/18 at 16:09; Status DC Atorvastatin Calcium (Lipitor) 40 mg QHS PO Last administered on 06/07/18at 20: 58; Start 05/26/18 at 21:00 Cetirizine HCl (ZyrTEC) 10 mg DAILY PO Last administered on 06/08/18at 07:57; Start 05/26/18 at 10:30 Tamsulosin HCl (Flomax) 0.4 mg DAILY PO Last administered on 06/08/18at 07:57; Start 05/26/18 at 10:30 Gabapentin (Neurontin) 600 mg BID PO Last administered on 05/27/18at 08:10; Start 05/26/18 at 10:15; Stop 05/27/18 at 13:29; Status DC Insulin Human Lispro (HumaLOG) 4 units TIDWMEALS SQ Last administered on at 16:41; Start 05/26/18 at 17:00 Insulin Human Lispro (HumaLOG) 0-7 UNITS TIDWMEALS SQ Last administered on 06/07at 16:40; Start 05/26/18 at 17:00 Dextrose (Dextrose 50%-Water Syringe) 12.5 gm PRN Q15MIN PRN IV SEE COMMENTS; Start 05/26/18 at 13:00 Metformin HCl (Glucophage) 1,000 mg BIDWMEALS PO Last administered on at 16:59; Start 05/26/18 at 17:00; Stop 06/01/18 at 17:54; Status DC Linezolid/Dextrose 300 ml @ 300 mls/hr Q12HR IV Last administered on at 11:04; Start 05/26/18 at 21:00; Stop 05/30/18 at 11:12; Status DC Heparin Sodium/ Dextrose 500 ml @ 0 mls/hr CONT PRN IV SEE I/O RECORD Last administered on 06/07/18 06:10; Start 05/28/18 at 09:00; Stop 06/07/18 at 10:31 ; Status DC Heparin Sodium (Porcine) (Heparin Sodium) 3,400 unit PRN Q6HRS PRN IV FOR UFH LEVEL LESS THAN 0.2; Start 05/28/18 at 09:00; Stop 06/07/18 at 14:51; Status DC Heparin Sodium (Porcine) (Heparin Sodium) 1,700 unit PRN Q6HRS PRN IV FOR UFH LEVEL 0.2 - 0.29 Last administered on 06/02/18 06:17; Start 05/28/18 at 09:00; Stop 06/02/18 at 12:54; Status DC Info (Anti-Coagulation Monitoring By Pharmacy) 1 each PRN DAILY PRN MC SEE COMMENTS Last administered on 06/06/18at 17:38; Start 05/27/18 at 11:30 Lactobacillus Rhamnosus (Culturelle) 1 cap BID PO Last administered on 07:57; Start 05/27/18 at 21:00 Bacitracin/ Polymyxin B Sulfate (Polysporin) 1 ana TID TP Last administered on 06/07/18 20:57; Start 05/27/18 at 14:00 Gabapentin (Neurontin) 600 mg DAILY08 PO Last administered on 06/08/18 07:58; Start 05/28/18 at 08:00 Gabapentin (Neurontin) 900 mg HS PO Last administered on 06/07/18at 20:59; Start 05/27/18 at 21:00 Oxycodone/ Acetaminophen (Percocet 5/325) 1 tab PRN Q4HRS PRN PO MODERATE TO SEVERE PAIN Last administered on 06/06/18 05:32; Start 05/27/18 at 14:30; Stop 06/06/18 at 10:30; Status DC Multivitamins (Thera M Plus) 1 tab DAILY PO Last administered on 06/08/18 07: 58; Start 05/28/18 at 17:00 Ascorbic Acid (Vitamin C) 500 mg DAILY PO Last administered on 06/08/18 07:58 ; Start 05/28/18 at 17:00 Ondansetron HCl (Zofran) 4 mg PRN Q6HRS PRN IV NAUSEA/VOMITING; Start 05/30/18 at 07:00; Stop 05/30/18 at 15:00; Status DC Morphine Sulfate (Morphine Sulfate) 1 mg PRN Q10MIN PRN IV SEVERE PAIN Last administered on 05/30/18at 09:29; Start 05/30/18 at 07:00; Stop 05/30/18 at 15:00 ; Status DC Ringer's Solution 1,000 ml @ 30 mls/hr Q24H IV ; Start 05/30/18 at 07:00; Stop 05/30/18 at 11:36; Status DC Lidocaine HCl (Xylocaine-Mpf 1% 2ml Vial) 2 ml PRN 1X PRN ID PRIOR TO IV START ; Start 05/30/18 at 07:00; Stop 05/30/18 at 15:00; Status DC Hydromorphone HCl (Dilaudid) 0.5 mg PRN Q10MIN PRN IV SEV PAIN, Second choice; Start 05/30/18 at 07:00; Stop 05/30/18 at 15:00; Status DC Prochlorperazine Edisylate (Compazine) 5 mg PACU PRN PRN IV NAUSEA, MRX1; Start 05/30/18 at 07:00; Stop 05/30/18 at 15:00; Status DC Albuterol/ Ipratropium (Duoneb) 3 ml 1X ONCE NEB Last administered on at 07:10; Start 05/30/18 at 07:15; Stop 05/30/18 at 07:16; Status DC Fentanyl Citrate (Fentanyl 2ml Vial) 100 mcg STK-MED ONCE .ROUTE ; Start at 07:15; Stop 05/30/18 at 07:16; Status DC Ondansetron HCl (Zofran) 4 mg STK-MED ONCE .ROUTE ; Start 05/30/18 at 08:42; Stop 05/30/18 at 08:43; Status DC Propofol 20 ml @ As Directed STK-MED ONCE IV ; Start 05/30/18 at 08:43; Stop at 08:44; Status DC Lidocaine HCl (Lidocaine Pf 2% Vial) 5 ml STK-MED ONCE .ROUTE ; Start 05/30/18 at 08:43; Stop 05/30/18 at 08:44; Status DC Sevoflurane (Ultane) 30 ml STK-MED ONCE IH ; Start 05/30/18 at 08:44; Stop 05/30 at 08:45; Status DC Cefazolin Sodium/ Dextrose 50 ml @ 100 mls/hr Q8HRS IV ; Start 05/30/18 at 14: 00; Stop 05/30/18 at 14:00; Status DC Cefazolin Sodium 50 ml @ 100 mls/hr Q8HRS IV ; Start 05/30/18 at 14:00; Status UNV Cefazolin Sodium 1 gm/Dextrose 50 ml @ 100 mls/hr Q8HRS IV Last administered on 06/08/18at 05:36; Start 05/30/18 at 14:00 Warfarin Sodium (Coumadin Per Pharmacy) 1 each PRN DAILY PRN MC SEE COMMENTS Last administered on 06/07/18at 14:56; Start 05/31/18 at 14:15 Warfarin Sodium (Coumadin) 5 mg DAILY16 PO Last administered on 05/31/18at 16:54 ; Start 05/31/18 at 16:00; Stop 06/01/18 at 12:58; Status DC Albuterol/ Ipratropium (Duoneb) 3 ml QID NEB Last administered on 06/08/18at 07: 08; Start 05/31/18 at 20:00 Warfarin Sodium (Coumadin) 6 mg 1X WARF ONCE PO Last administered on at 17:47; Start 06/01/18 at 16:00; Stop 06/01/18 at 16:01; Status DC Iohexol (Omnipaque 300 Mg/ml) 60 ml 1X ONCE IV Last administered on 06/01/18at 22:03; Start 06/01/18 at 18:00; Stop 06/01/18 at 18:01; Status DC Metformin HCl (Glucophage) 1,000 mg BIDWMEALS PO Last administered on at 07:57; Start 06/04/18 at 08:00 Info (CONTRAST GIVEN -- Rx MONITORING) 1 each PRN DAILY PRN MC SEE COMMENTS; Start 06/01/18 at 18:00; Stop 06/03/18 at 17:59; Status DC Azithromycin (Zithromax) 500 mg 1X ONCE PO Last administered on 06/02/18 12: 18; Start 06/02/18 at 10:30; Stop 06/02/18 at 10:31; Status DC Azithromycin (Zithromax) 250 mg DAILY PO Last administered on 06/07/18 08:18; Start 06/03/18 at 09:00; Stop 06/07/18 at 09:00; Status DC Warfarin Sodium (Coumadin) 7.5 mg 1X WARF ONCE PO Last administered on 15:59; Start 06/02/18 at 16:00; Stop 06/02/18 at 16:01; Status DC Warfarin Sodium (Coumadin) 7.5 mg 1X WARF ONCE PO ; Start 06/03/18 at 16:00; Stop 06/03/18 at 16:01; Status DC Warfarin Sodium (Coumadin) 7.5 mg 1X WARF ONCE PO Last administered on 16:39; Start 06/04/18 at 16:00; Stop 06/04/18 at 16:01; Status DC Guaifenesin/ Codeine Phosphate (Robitussin Ac) 5 ml PRN Q6HRS PRN PO COUGH 2ND CHOICE Last administered on 06/05/18 21:14; Start 06/04/18 at 18:30 Warfarin Sodium (Coumadin) 9 mg 1X WARF ONCE PO ; Start 06/05/18 at 16:00; Stop 06/05/18 at 16:01; Status Cancel Warfarin Sodium (Coumadin) 9 mg 1X WARF ONCE PO Last administered on 17:06; Start 06/05/18 at 16:00; Stop 06/05/18 at 16:01; Status DC Lidocaine (Lidoderm) 1 patch DAILY TD Last administered on 06/08/18 07:58; Start 06/06/18 at 10:30 Miscellaneous (Lidoderm Patch Removal) 1 ea QHS MC Last administered on 20:57; Start 06/06/18 at 21:00 Oxycodone/ Acetaminophen (Percocet 10/325) 1 tab PRN Q4HRS PRN PO pain Last administered on 06/08/18 07:58; Start 06/06/18 at 10:30 Fentanyl Citrate (Fentanyl 2ml Vial) 50 mcg 1X ONCE IV Last administered on at 10:49; Start 06/06/18 at 10:30; Stop 06/06/18 at 10:38; Status DC Fentanyl Citrate (Fentanyl 2ml Vial) 50 mcg PRN Q2HR PRN IV PAIN Last administered on 06/08/18at 08:00; Start 06/06/18 at 10:30 Warfarin Sodium (Coumadin) 9 mg 1X WARF ONCE PO Last administered on at 15:32; Start 06/06/18 at 16:00; Stop 06/06/18 at 16:01; Status DC Warfarin Sodium (Coumadin) 9 mg 1X WARF ONCE PO Last administered on at 16:38; Start 06/07/18 at 16:00; Stop 06/07/18 at 16:01; Status DC Active Scripts Active Reported Preparation H Ointment (Phenyleph/Mineral Oil/Petrolat) 28 Gm Oint.appl 28 Gm RC QID Muscle Rub Cream (Methyl Salicylate/Menthol) 113 Gm Cream..g. 1 Gm TP TID Proair Hfa Inhaler (Albuterol Sulfate) 8.5 Gm Hfa.aer.ad 1 Puff INH PRN Q6HRS PRN Zyrtec (Cetirizine Hcl) 10 Mg Tablet 1 Tab PO DAILY Atorvastatin Calcium 40 Mg Tablet 1 Tab PO QHS Metformin Hcl 1,000 Mg Tablet 1,000 Mg PO BIDWMEALS Gabapentin (Gabapentin) 300 Mg Capsule 300 Mg PO DAILY Gabapentin 600 Mg Tablet 600 Mg PO DAILY08 Flomax (Tamsulosin Hcl) 0.4 Mg Cap.er.24h 1 Cap PO DAILY Tylenol (Acetaminophen) 325 Mg Tablet 2 Tab PO TID PRN PRN Humulin R (Insulin Regular, Human) 100 Unit/1 Ml Vial 100 Unit IJ TIDAC Lisinopril 20 Mg Tablet 1 Tab PO DAILY Furosemide 20 Mg Tablet 1 Tab PO DAILY Coumadin (Warfarin Sodium) 4 Mg Tablet 1 Tab PO DAILY Actos (Pioglitazone Hcl) 45 Mg Tablet 1 Tab PO DAILY Novolin N (Nph, Human Insulin Isophane) 100 Unit/1 Ml Vial 20 Unit SQ BID Senna (Sennosides) 8.6 Mg Tablet 2 Mg PO BID Vitals/I & O Vital Sign - Last 24 Hours 06/07/18 06/07/18 06/07/18 3/28/19 11:44 11:52 14:54 14:54 Pulse Ox 96 O2 Delivery Room Air Room Air Room Air Room Air 06/07/18 06/07/18 06/07/18 06/07/18 16:03 19:00 19:02 19:58 Temp 98.0 98.0 Pulse 80 Resp 18 16 B/P (MAP) 92/53 (66) Pulse Ox 96 91 O2 Delivery Room Air Room Air Room Air Room Air 06/07/18 06/07/18 06/07/18 06/08/18 20:32 20:58 23:25 02:05 Temp 97.9 97.9 Pulse 81 Resp 18 16 16 B/P (MAP) 92/50 (64) Pulse Ox 91 91 91 O2 Delivery Room Air Room Air Room Air Room Air 06/08/18 06/08/18 06/08/18 06/08/18 02:35 03:13 03:15 03:58 Temp 97.6 97.6 Pulse 82 Resp 16 18 16 15 B/P (MAP) 98/55 (69) Pulse Ox 91 91 90 90 O2 Delivery Room Air Room Air 06/08/18 06/08/18 06/08/18 06/08/18 07:15 07:16 07:55 07:55 Temp 97.7 97.7 Pulse 83 83 Resp 20 B/P (MAP) 90/49 90/49 (63) Pulse Ox 91 93 O2 Delivery Room Air Room Air Room Air 06/08/18 06/08/18 06/08/18 06/08/18 07:58 08:00 08:23 09:02 O2 Delivery Room Air Room Air Room Air Room Air Intake and Output 06/07/18 06/07/18 06/08/18 15:00 23:00 07:00 Intake Total 360 ml 550 ml 1450 ml Output Total 1100 ml Balance 360 ml 550 ml 350 ml SHAUN JOSE MD Jun 08, 2018 11:05
[2018-06-08] MEDS: ONDANSETRON PF 4 MG/2 ML VIAL. IV PRN ×2 (11:45→16:37)
--- NOTE | 2018-06-08 11:47 | NUR ---
Pharmacy Warfarin Dosing Note S:Pharmacy consulted to assist with anticoagulation therapy started with target INR: 2 -3 O:HELADIO GAO is a 57 year old M with Recurrent VTE LABS: Last INR: 2.0 Last HGB: 8.3 Last HCT: 25.9 Last PLT: 148 Last dose of 9MG given on 06/06/18 at 1706 Previous Regimen: 4 MG/D Vitamin K given: N Drug Interaction Changes: Same Interacting Drug Ongoing Drug Interactions: ZITHROMAX A:INR of 2.0 is within desired range. Target range for this patient is: 2 -3 P: Warfarin dose: 9mg Today at 1600 Bridge Therapy: Heparin Therapeutic CONT Next INR due IN AM Pharmacy anticoagulation service will continue to follow. MAIKOL [facility], 06/08/18 114
--- NOTE | 2018-06-08 12:05 | PDOC ---
Infectious Disease Note Subjective: Subjective pt cont to have pain in the LLE, Had nausea and vomiting yesterday and today Pain controlled No fevers ROS: ROS Negative except for above. tired appearing male Vital Signs: Vital Signs Vital Signs Date Time Temp Pulse Resp B/P (MAP) Pulse Ox O2 Delivery O2 Flow Rate FiO2 06/08/18 11:52 83 109/55 (73) 06/08/18 11:45 Room Air 06/08/18 07:55 97.7 20 93 97.7 Physical Exam: PHYSICAL EXAM GENERAL: Propped up in bed, sleepy HEENT: Oral cavity, pharynx pink and moist. cluster herpetic-type lesions about the mouth/nares - dry/clearing NECK: Supple. LUNGS: Clear to auscultation. HEART: S1 and S2. ABDOMEN: Obese, soft and nontender with bowel sounds present. EXTREMITIES: LLE edema and tenderness in the thighs, Lt lower ext wound vac in place + warmth and localized redness. SKIN: without rash NEUROLOGIC: Sleepy, responds appropriately Medications: Inpatient Meds: Current Medications Medications (Trade) Dose Ordered Sig/Katiana Start Time Stop Time Status Last Admin Dose Admin Acetaminophen (Tylenol) 650 mg TID PRN PRN 05/25/18 18:15 UNV Al Hydroxide/Mg Hydroxide (Mylanta Plus Xs) 30 ml PRN DAILY PRN 05/25/18 18:00 05/27/18 17:49 30 ML Albuterol Sulfate (Ventolin Neb Soln) 2.5 mg PRN Q6HRS PRN 05/26/18 10:15 Albuterol/ Ipratropium (Duoneb) 3 ml QID 05/31/18 20:00 06/08/18 07:08 3 ML Allopurinol (Zyloprim) 200 mg DAILY 05/26/18 11:00 05/26/18 16:09 DC Ascorbic Acid (Vitamin C) 500 mg DAILY 05/28/18 17:00 06/08/18 07:58 500 MG Atorvastatin Calcium (Lipitor) 40 mg QHS 05/26/18 21:00 06/07/18 20:58 40 MG Azithromycin (Zithromax) 250 mg DAILY 06/03/18 09:00 06/07/18 09:00 DC 06/07/18 08:18 250 MG Bacitracin/ Polymyxin B Sulfate (Polysporin) 1 ana TID 05/27/18 14:00 06/07/18 20:57 1 ANA Cefazolin Sodium 1 gm/Dextrose 50 ml @ 100 mls/hr Q8HRS 05/30/18 14:00 06/08/18 05:36 100 MLS/HR Cefazolin Sodium/ Dextrose 50 ml @ 100 mls/hr Q8HRS 05/30/18 14:00 05/30/18 14:00 DC Cetirizine HCl (ZyrTEC) 10 mg DAILY 05/26/18 10:30 06/08/18 07:57 10 MG Clonidine HCl (Catapres) 0.1 mg PRN Q6HRS PRN 05/25/18 18:00 Dextrose (Dextrose 50%-Water Syringe) 12.5 gm PRN Q15MIN PRN 05/26/18 13:00 Diphenhydramine HCl (Benadryl) 25 mg PRN Q4HRS PRN 05/25/18 18:00 Docusate Sodium (Colace) 100 mg PRN BID PRN 05/25/18 18:00 Enoxaparin Sodium (Lovenox 40mg Syringe) 40 mg DAILY 05/26/18 09:00 05/26/18 16:30 DC 05/26/18 09:39 40 MG Fentanyl Citrate (Fentanyl 2ml Vial) 50 mcg PRN Q2HR PRN 06/06/18 10:30 06/08/18 11:45 50 MCG Furosemide (Lasix) 20 mg DAILY 05/26/18 09:00 05/27/18 13:28 DC Gabapentin (Neurontin) 900 mg HS 05/27/18 21:00 06/07/18 20:59 900 MG Guaifenesin (Robitussin) 200 mg PRN Q4HRS PRN 05/25/18 18:00 Guaifenesin/ Codeine Phosphate (Robitussin Ac) 5 ml PRN Q6HRS PRN 06/04/18 18:30 06/05/18 21:14 5 ML Heparin Sodium (Porcine) (Heparin Sodium) 1,700 unit PRN Q6HRS PRN 05/28/18 09:00 06/02/18 12:54 DC 06/02/18 06:17 1,700 UNIT Heparin Sodium/ Dextrose 500 ml @ 0 mls/hr CONT PRN 05/28/18 09:00 06/07/18 10:31 DC 06/07/18 06:10 36.5 MLS/HR Hydromorphone HCl (Dilaudid) 0.5 mg PRN Q10MIN PRN 05/30/18 07:00 05/30/18 15:00 DC Info (Anti-Coagulation Monitoring By Pharmacy) 1 each PRN DAILY PRN 05/27/18 11:30 06/06/18 17:38 1 EACH Info (CONTRAST GIVEN -- Rx MONITORING) 1 each PRN DAILY PRN 06/01/18 18:00 06/03/18 17:59 DC Insulin Glargine (Lantus) 20 units BID 05/25/18 21:00 06/07/18 21:05 20 UNITS Insulin Human Lispro (HumaLOG) 0-7 UNITS TIDWMEALS 05/26/18 17:00 06/07/18 16:40 3 UNITS Iohexol (Omnipaque 300 Mg/ml) 60 ml 1X ONCE 06/01/18 18:00 06/01/18 18:01 DC 06/01/18 22:03 60 ML Lactobacillus Rhamnosus (Culturelle) 1 cap BID 05/27/18 21:00 06/08/18 07:57 1 CAP Lidocaine (Lidoderm) 1 patch DAILY 06/06/18 10:30 06/08/18 07:58 1 PATCH Lidocaine HCl (Lidocaine Pf 2% Vial) 5 ml STK-MED ONCE 05/30/18 08:43 05/30/18 08:44 DC Lidocaine HCl (Xylocaine-Mpf 1% 2ml Vial) 2 ml PRN 1X PRN 05/30/18 07:00 05/30/18 15:00 DC Linezolid/Dextrose 300 ml @ 300 mls/hr Q12HR 05/26/18 21:00 05/30/18 11:12 DC 05/30/18 11:04 300 MLS/HR Lisinopril (Prinivil) 20 mg DAILY 05/26/18 09:00 06/07/18 08:18 20 MG Lorazepam (Ativan) 0.5 mg PRN Q4HRS PRN 05/25/18 18:00 05/26/18 04:30 0.5 MG Metformin HCl (Glucophage) 1,000 mg BIDWMEALS 06/04/18 08:00 06/08/18 07:57 1,000 MG Miscellaneous (Lidoderm Patch Removal) 1 ea QHS 06/06/18 21:00 06/07/18 20:57 1 EA Morphine Sulfate (Morphine Sulfate) 1 mg PRN Q10MIN PRN 05/30/18 07:00 05/30/18 15:00 DC 05/30/18 09:29 1 MG Multivitamins (Thera M Plus) 1 tab DAILY 05/28/18 17:00 06/08/18 07:58 1 TAB Ondansetron HCl (Zofran) 4 mg STK-MED ONCE 05/30/18 08:42 05/30/18 08:43 DC Oxycodone/ Acetaminophen (Percocet 10/325) 1 tab PRN Q4HRS PRN 06/06/18 10:30 06/08/18 07:58 1 TAB Oxycodone/ Acetaminophen (Percocet 5/325) 1 tab PRN Q4HRS PRN 05/27/18 14:30 06/06/18 10:30 DC 06/06/18 05:32 1 TAB Pioglitazone HCl (Actos) 45 mg DAILY 05/26/18 09:00 06/08/18 07:57 45 MG Piperacillin Sod/ Tazobactam Sod 3.375 gm/Sodium Chloride 50 ml @ 100 mls/hr Q6HRS 05/26/18 00:00 UNV Prochlorperazine Edisylate (Compazine) 5 mg PACU PRN PRN 05/30/18 07:00 05/30/18 15:00 DC Propofol 20 ml @ As Directed STK-MED ONCE 05/30/18 08:43 05/30/18 08:44 DC Ringer's Solution 1,000 ml @ 30 mls/hr Q24H 05/30/18 07:00 05/30/18 11:36 DC Sennosides (Senna) 17.2 mg BID 05/25/18 21:00 06/08/18 07:57 17.2 MG Sevoflurane (Ultane) 30 ml STK-MED ONCE 05/30/18 08:44 05/30/18 08:45 DC Sodium Chloride 1,000 ml @ 100 mls/hr Q10H 05/25/18 17:54 06/02/18 12:54 DC 06/02/18 05:50 100 MLS/HR Tamsulosin HCl (Flomax) 0.4 mg DAILY 05/26/18 10:30 06/08/18 07:57 0.4 MG Vancomycin HCl (Vanco Per Pharmacy) 1 each PRN DAILY PRN 05/25/18 18:45 05/26/18 18:24 DC 05/26/18 16:08 1 EACH Vancomycin HCl (Vancomycin Trough Level) 1 each 1X ONCE 05/27/18 08:30 05/27/18 08:30 DC Vancomycin HCl 1.5 gm/Sodium Chloride 500 ml @ 250 mls/hr Q12H 05/26/18 09:00 05/26/18 18:24 DC 05/26/18 09:39 250 MLS/HR Vancomycin HCl 2 gm/Sodium Chloride 500 ml @ 250 mls/hr 1X ONCE 05/25/18 19:00 05/25/18 20:59 DC 05/25/18 22:34 250 MLS/HR Warfarin Sodium (Coumadin Per Pharmacy) 1 each PRN DAILY PRN 05/31/18 14:15 06/07/18 14:56 1 EACH Warfarin Sodium (Coumadin Per Physician) 1 each PRN DAILY PRN 05/25/18 20:45 05/27/18 11:16 DC 05/26/18 16:15 1 EACH Warfarin Sodium (Coumadin) 9 mg 1X WARF ONCE 06/08/18 16:00 06/08/18 16:01 Zolpidem Tartrate (Ambien) 5 mg PRN QHS PRN 05/25/18 18:00 Labs: Lab Laboratory Tests Test 06/07/18 16:32 06/07/18 20:50 06/08/18 04:43 06/08/18 07:48 Glucose (Fingerstick) 170 mg/dL (70-99) 135 mg/dL (70-99) 100 mg/dL (70-99) Prothrombin Time 23.7 SEC (11.7-14.0) Prothromb Time International Ratio 2.1 (0.8-1.1) Lactic Acid Level 1.3 mmol/L (0.4-2.0) Objective: Assessment: Cellulitis of left lower extremity, slowly healing , no further I and D per vascular evaluation 06/07 Nonhealing wounds of LLE since 2016,, now with eschar. s/p I and D taken down to fascia on 05/30/18. 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 Tomlinson in [place], was on Sutent per patient -CT chest:Innumerable bilateral lung masses, right adrenal mass: expansile right posterior ninth rib mass. Solitary kidney Incarceration MRSA screen positive Nausea and vomiting Plan: Plan of Care Continue cefazolin for 3 more weeks final duration will depend on clinical response; DO NOT STOP ANTIBIOTICS BEFORE SEEN IN ID CLINIC weekly labs on iv abx cbc/bun/creat/esr while on antibiotics Completed Azithromycin course per pulmonary Probiotics undergoing radiation treatment due to progressive cancer wound /vac per wound team F/U in ID Clinic in 2-3 weeks [phone] PICC Line care Probiotics D/W SW D/W MARCELLE CHRISTY MD Jun 08, 2018 12:05
[2018-06-08] MEDS ORDERED: LIDOCAINE WITH 8.4% SOD BICARB 3 ML DISP.SYRIN. INJ ONE (13:30)
--- NOTE | 2018-06-08 13:32 | PDOC ---
Provider Note Provider Note 57 yo man with metastatic renal cell carcinoma of right kidney s/p palliative nephrectomy 2011. He had palliative Sutent with response and now has disease progression with symptomatic progression in the right flank region due to a met in right posterior lateral 9th rib. Day 2 of 5 day course of palliative radiation to posterior lateral right 9th rib. Some nausea after treatment better with antiemetic> Right chest wall pain and distal left leg pain similar in intensity. No improvement yet with radiation. Currently pain well controlled at both sites. He also has a hx of DVTs and now has a venous insufficiency ulcer in the distal left leg. Had debridement and wound vac placement. CT chest: bilateral multiple lung nodules c/w mets, bilateral effusions, right kidney absent. Solitary bulky destructive met in post lateral right 9th rib. Impression: Metastatic renal cell carcinoma to right 0th rib. Pain stable but well controlled with current meds. Add antiemetic before treatment. Discussed with patient and nurse. Resume radiation 06/11/2018, for 3rd of 5 planned treatments. VALERIE GOMES MD Jun 08, 2018 13:32
[2018-06-08] MEDS ORDERED: WARFARIN 3 MG TABLET. PO ONE (16:00)
--- NOTE | 2018-06-08 16:44 | NUR ---
Wound care: Patient seen per wound care follow up. See wound assessment. Wound assessed, cleansed with wound wash, measured and photographed. Wound redressed with moistened Hydrofera Blue, xeroform gauze, Keramax pad and 4 layer wrap. Wound care will follow up on Sunday 06/11 for dressing change. Pt informed to notify staff if wrap becomes too tight or with discomfort or concerns. No other wounds noted at this time. Spoke with RN regarding POC. Pt left in bed and legs elevated on a pillow. Call light in reach, side rails up x2.
[2018-06-08] MEDS: ATORVASTATIN CALCIUM 40 MG TABLET. PO SCH (20:29)
[2018-06-08] MEDS: PATCH REMOVAL. MC SCH (20:31)
[2018-06-09 03:17] VITALS: BP 99/47
[2018-06-09] MEDS: oxyCODONE/APAP 10/325 1 TAB TABLET PO PRN ×3 (03:30→13:03)
[2018-06-09] MEDS: fentaNYL PF VIAL 100 MCG/2 ML VIAL IV PRN ×3 (03:31→14:26)
[2018-06-09] MEDS: ceFAZolin SODIUM 1 GM in IV DEXTROSE 5% 50 ML IV SCH ×2 (06:22→14:31)
[2018-06-09 07:00] VITALS: BP 121/59
[2018-06-09] MEDS: LISINOPRIL 20 MG TABLET PO SCH (08:39)
[2018-06-09] MEDS: LIDOCAINE (700MG/PATCH) PATCH. TD SCH (08:39)
[2018-06-09] MEDS: PIOGLITAZONE 15 MG TABLET. PO SCH (08:40)
[2018-06-09] MEDS: metFORMIN 500 MG TABLET PO SCH (08:40)
[2018-06-09] MEDS: ASCORBIC ACID 500 MG TABLET PO SCH (08:40)
[2018-06-09] MEDS: LACTOBACILLUS RHAMNOSUS GG 1 CAPSULE. PO SCH (08:40)
[2018-06-09] MEDS: MULTIVITAMIN with MINERAL TABLET. PO SCH (08:40)
[2018-06-09] MEDS: GABAPENTIN 300 MG CAPSULE. PO SCH (08:40)
[2018-06-09] MEDS: TAMSULOSIN 0.4 MG CAP.ER.24H. PO SCH (08:40)
[2018-06-09] MEDS: SENNOSIDES 8.6 MG TABLET PO SCH (08:41)
[2018-06-09] MEDS: CETIRIZINE HCL 10 MG TABLET. PO SCH (08:41)
[2018-06-09 08:45] LABS: PROTHROMBIN TIME PATIENT 26.8 SEC (11.7-14.0)
[2018-06-09] MEDS: ONDANSETRON PF 4 MG/2 ML VIAL. IV PRN (08:49)
[2018-06-09] MEDS ORDERED: MULT1TAB90 PO (08:53)
[2018-06-09] MEDS ORDERED: GABA300C18 PO ×2 (08:53)
[2018-06-09] MEDS ORDERED: OXYC1TAB22 PO (08:53)
[2018-06-09] MEDS ORDERED: BACI28.32 TP (08:53)
[2018-06-09] MEDS ORDERED: GUAI100L12 PO (08:53)
[2018-06-09] MEDS ORDERED: INSU100I11 SQ (08:53)
[2018-06-09] MEDS ORDERED: ASCO500T2 PO (08:53)
[2018-06-09] MEDS: INSULIN GLARGINE 300 UNITS/3 ML INSULN.PEN. SQ SCH (08:58)
[2018-06-09] MEDS: INSULIN LISPRO 300 UNITS/3 ML INSULN.PEN. SQ SCH ×4 (08:59→13:11)
[2018-06-09] MEDS: IPRATRPIUM/ALBUTEROL 0.5/2.5MG 3 ML NEBU. NEB SCH ×2 (09:00→13:00)
[2018-06-09] MEDS: BACITRACIN/POLYMYXIN B TOPICAL OINT 15GM TUBE. TP SCH ×2 (09:00→14:00)
[2018-06-09] MEDS ORDERED: ALTEPLASE 1MG SYRINGE. INT CAT ONE (09:15)
--- NOTE | 2018-06-09 10:29 | PDOC3 ---
Discharge Summary Visit Information Date of Admission: May 25, 2018 Date of Discharge: Jun 09, 2018 Admitting Diagnosis Comment: 1. marked complicated acute cellulitis left lower leg, - needed wound vac 2. Occlusive thrombus left femoral vein-possibly remnant of previous DVT on that same leg 3. diabetes 2, mod control 4. hypertension 5. OBESITY, BMI 38 6. [employer] prisoner low security 7. mod protein, caloric malnutrition 8. 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 ThromboCytopenia, platelets 136 with some hemoptysis 11. INmate 12,. 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- for 5 day radiaton tx Brief Hospital Course Allergies Allergies Coded Allergies Type Severity Reaction Last Updated Verified I S O L A T I O N *CONTACT* Allergy Unknown 04/05/18 Yes ibuprofen Adverse Reaction Intermediate 05/25/18 Yes Vital Signs Vital Signs Date Time Temp Pulse Resp B/P (MAP) Pulse Ox O2 Delivery O2 Flow Rate FiO2 06/09/18 09:02 94 Nasal Cannula 2.0 06/09/18 08:39 82 121/59 06/09/18 07:40 18 06/09/18 03:17 98.0 98.0 Lab Results Laboratory Tests Test 06/07/18 11:31 06/07/18 16:32 06/07/18 20:50 06/08/18 04:43 Glucose (Fingerstick) 216 mg/dL (70-99) 170 mg/dL (70-99) 135 mg/dL (70-99) Prothrombin Time 23.7 SEC (11.7-14.0) Prothromb Time International Ratio 2.1 (0.8-1.1) Lactic Acid Level 1.3 mmol/L (0.4-2.0) Test 06/08/18 07:48 06/08/18 12:05 06/08/18 17:02 06/08/18 20:44 Glucose (Fingerstick) 100 mg/dL (70-99) 149 mg/dL (70-99) 153 mg/dL (70-99) 152 mg/dL (70-99) Test 06/09/18 07:35 Glucose (Fingerstick) 152 mg/dL (70-99) Laboratory Tests Test 06/08/18 12:05 06/08/18 17:02 06/08/18 20:44 06/09/18 07:35 Glucose (Fingerstick) 149 mg/dL (70-99) 153 mg/dL (70-99) 152 mg/dL (70-99) 152 mg/dL (70-99) Brief Hospital Course Mr. Anaay is a 57 old obese white male who is an inmate. History of RCC but unfortunately has spread now to the lungs as evidenced by imaging. Comanagement pulmonary. He has a history of recurrent DVT on the left leg may be a history of PE. Hence advised warfarin instead of the novel OAC< needed to be on heparin drip for a few days at its as it took a while for INR to reach goal. But course remarkable for worsening left leg symptoms cellulitis inflammation on imaging. Comanage with ID. Patient is to continue IV cefazolin every 8 in jail [place]. He had some swelling on the left arm previous site of PICC and that has occlusive thrombosis and anyway he is on blood thinners. He had significant right rib pain ninth rib on imaging there was some uptake or metastatic lesion there. Hence I had to consult radiation oncology and is undergoing treatment palliative to help with the pain for 5 day duration. Each radiation session with last 10:15 minutes. Also some lidoderm patch in area which caldera snot help really He follows with [place] or [place] heme onc, PLANned for palliative chemotherapy. Comanage with heme onc who had no further recs but to continue heme onc follow-up in [place] or [place]. He will go back to jail today with daily wound care, wound care will see him Monday when he comes back here for his radiation treatment. He will follow-up with his [place] cancer doctor. He will continue Coumadin indefinitely because of history of DVT, PE, hypercoagulable/cancer metastatic stage IV. He wishes to be a full code, I have addressed this with him Back to jail today time 40 mins, cumulative Discharge Information Condition at Discharge: Improved, Stable Disposition/Orders: D/C to Another Facility, Other (jail) Scheduled Ascorbic Acid (Vitamin C) 500 Mg Tablet, 500 MG PO DAILY for mvi MDD 1, #30 Prescribed by: SHAUN JOSE on 06/09/18 0853 Atorvastatin Calcium (Atorvastatin Calcium) 40 Mg Tablet, 1 TAB PO QHS for hyperlipidemia, #90 Ref 3 (Reported) Entered as Reported by: FITO ARELLANO on 05/25/181819 Last Taken: 1 on Unknown Date & Time Last Action: Continued on 05/26/181004 by JASMYNE MATA Bacitracin/Polymyxin B Sulfate (Bacitracin-Polymyxin Ointment) 28.35 Gm Oint...g., 1 JOSUE TP TID for wound MDD 1, #1 Prescribed by: SHAUN JOSE on 06/09/18 0853 Cetirizine Hcl (Zyrtec) 10 Mg Tablet, 1 TAB PO DAILY for allergy, #30 Ref 2 ( Reported) Entered as Reported by: FITO ARELLANO on 05/25/181819 Last Taken: Unknown Dose on Unknown Date & Time Last Action: Continued on 05/26/181004 by JASMYNE MATA Furosemide (Furosemide) 20 Mg Tablet, 1 TAB PO DAILY for swelling, #90 Ref 1 ( Reported) Entered as Reported by: FITO ARELLANO on 05/25/181735 Last Taken: 20 on Unknown Date & Time Last Action: Continued on 05/25/181804 by MAXIMILIANO JONAS MD Gabapentin (Gabapentin) 600 Mg Tablet, 600 MG PO DAILY08 for NEUROGENIC PAIN, ( Reported) Entered as Reported by: FITO ARELLANO on 05/25/181813 Last Taken: Unknown Dose on Unknown Date & Time Last Action: Converted on 05/26/181004 by JASMYNE MATA Gabapentin (Gabapentin ) 300 Mg Capsule, 300 MG PO DAILY for NEUROGENIC PAIN, (Reported) Entered as Reported by: FITO ARELLANO on 05/25/181815 Last Taken: 3 on Unknown Date & Time Last Action: New Order on 05/25/181815 by FITO ARELLANO Gabapentin (Gabapentin) 300 Mg Capsule, 600 MG PO DAILY08 for neuropathy MDD 1, #30 Prescribed by: SHAUN JOSE on 06/09/18 0853 Gabapentin (Gabapentin) 300 Mg Capsule, 900 MG PO HS for neuropathy MDD 1, #30 Prescribed by: SHAUN JOSE on 06/09/18 0853 Insulin Lispro (Humalog) 100 Unit/1 Ml Insuln.pen, 4 UNITS SQ TIDWMEALS for dm MDD 1, #30 Prescribed by: SHAUN JOSE on 06/09/18 0853 Insulin Regular, Human (Humulin R) 100 Unit/1 Ml Vial, 100 UNIT IJ TIDAC for diabetes, (Reported) Entered as Reported by: FITO ARELLANO on 05/25/181735 Last Taken: Unknown Dose on Unknown Date & Time Last Action: HELD on 05/26 by JASMYNE MATA Lisinopril (Lisinopril) 20 Mg Tablet, 1 TAB PO DAILY for hypertension, #30 Ref 5 (Reported) Entered as Reported by: FITO ARELLANO on 05/25/181735 Last Taken: 20 on Unknown Date & Time Last Action: Continued on 05/25/181804 by MAXIMILIANO JONAS MD Metformin Hcl (Metformin Hcl) 1,000 Mg Tablet, 1,000 MG PO BIDWMEALS for diabetes, (Reported) Entered as Reported by: FITO ARELLANO on 05/25/181816 Last Taken: Unknown Dose on Unknown Date & Time Last Action: Converted on 05/26/181615 by JASMYNE MATA Methyl Salicylate/Menthol (Muscle Rub Cream) 113 Gm Cream..g., 1 GM TP TID for pain, (Reported) Entered as Reported by: FITO ARELLANO on 05/25/181830 Last Taken: 1 on Unknown Date & Time Last Action: HELD on 05/26/181615 by JASMYNE MATA Multivits,Ca,Minerals/Iron/Fa (Thera-M Tablet) 1 Each Tablet, 1 TAB PO DAILY for mvi MDD 1, #30 Prescribed by: SHAUN JOSE on 06/09/18 0853 Nph, Human Insulin Isophane (Novolin N) 100 Unit/1 Ml Vial, 20 UNIT SQ BID for diabetes, (Reported) Entered as Reported by: FITO ARELLANO on 05/25/181735 Last Taken: 20 units on Unknown Date & Time Last Action: Converted on 1804 by MAXIMILIANO JONAS MD Phenyleph/Mineral Oil/Petrolat (Preparation H Ointment) 28 Gm Oint.appl, 28 GM RC QID for pain, (Reported) Entered as Reported by: FITO ARELLANO on 05/25/181830 Last Taken: Unknown Dose on Unknown Date & Time Last Action: HELD on 05/26 by JASMYNE MATA Pioglitazone Hcl (Actos) 45 Mg Tablet, 1 TAB PO DAILY for diabetes, #30 Ref 5 ( Reported) Entered as Reported by: FITO ARELLANO on 05/25/181735 Last Taken: 45 mg on Unknown Date & Time Last Action: Converted on 1804 by MAXIMILIANO JONAS MD Sennosides (Senna) 8.6 Mg Tablet, 2 MG PO BID for constipation, (Reported) Entered as Reported by: FITO ARELLANO on 05/25/181735 Last Taken: 2 on Unknown Date & Time Last Action: Converted on 05/25/181804 by MAXIMILIANO JONAS MD Tamsulosin Hcl (Flomax) 0.4 Mg Cap.er.24h, 1 CAP PO DAILY for BPH, #30 Ref 11 ( Reported) Entered as Reported by: FITO ARELLANO on 05/25/181811 Last Taken: Unknown Dose on Unknown Date & Time Last Action: Continued on 05/26/181004 by JASMYNE MATA Warfarin Sodium (Coumadin) 4 Mg Tablet, 1 TAB PO DAILY for thrombolytic syndrome , #30 (Reported) Entered as Reported by: FITO ARELLANO on 05/25/181735 Last Taken: 4 mg on Unknown Date & Time Last Action: Converted on 1804 by MAXIMILIANO JONAS MD Scheduled PRN Acetaminophen (Tylenol) 325 Mg Tablet, 2 TAB PO TID PRN PRN for PAIN, #30 ( Reported) Entered as Reported by: FITO ARELLANO on 05/25/181735 Last Taken: 650 on Unknown Date & Time Last Action: Continued on 05/25/181804 by MAXIMILIANO JONAS MD Albuterol Sulfate (Proair Hfa Inhaler) 8.5 Gm Hfa.aer.ad, 1 PUFF INH PRN Q6HRS PRN for SHORTNESS OF BREATH, Ref 0 (Reported) Entered as Reported by: FITO ARELLANO on 05/25/181830 Last Taken: 90 mcg on Unknown Date & Time Last Action: Continued on 1004 by JASMYNE MATA Guaifenesin (Guaifenesin) 100 Mg/5 Ml Liquid, 200 MG PO PRN Q4HRS PRN for COUGH 1ST CHOICE MDD 1, #1 Prescribed by: SHAUN JOSE on 06/09/18 0853 Oxycodone/Apap 10-325 (Percocet 10-325 Mg Tablet ) 1 Each Tablet, 1 TAB PO PRN Q4HRS PRN for pain MDD 1, #30 Prescribed by: SHAUN JOSE on 06/09/18 0853 SHAUN JOSE MD Jun 09, 2018 10:29
[2018-06-09 11:03] VITALS: BP 112/48
--- NOTE | 2018-06-09 12:10 | PDOC ---
PULMONARY PROGRESS NOTES Subjective SOME NAUSEA NOT MORE SOA NO HEMOPTYSIS Vitals Vital Signs Date Time Temp Pulse Resp B/P (MAP) Pulse Ox O2 Delivery O2 Flow Rate FiO2 06/09/18 11:03 98.3 87 18 112/48 (69) 96 Room Air 98.3 06/09/18 09:02 2.0 ROS: No Increase Cough General: Alert, No acute distress Lungs: Clear Cardiovascular: S1 Abdomen: Soft, Other (obese) Neuro Exam: Alert Extremities: Other (cellulitis left leg) Labs Laboratory Tests Test 06/07/18 16:32 06/07/18 20:50 06/08/18 04:43 06/08/18 07:48 Glucose (Fingerstick) 170 mg/dL (70-99) 135 mg/dL (70-99) 100 mg/dL (70-99) Prothrombin Time 23.7 SEC (11.7-14.0) Prothromb Time International Ratio 2.1 (0.8-1.1) Lactic Acid Level 1.3 mmol/L (0.4-2.0) Test 06/08/18 12:05 06/08/18 17:02 06/08/18 20:44 06/09/18 07:30 Glucose (Fingerstick) 149 mg/dL (70-99) 153 mg/dL (70-99) 152 mg/dL (70-99) Prothrombin Time 26.8 SEC (11.7-14.0) Prothromb Time International Ratio 2.5 (0.8-1.1) Test 06/09/18 07:35 06/09/18 11:48 Glucose (Fingerstick) 152 mg/dL (70-99) 104 mg/dL (70-99) Laboratory Tests Test 06/08/18 17:02 06/08/18 20:44 06/09/18 07:30 06/09/18 07:35 Glucose (Fingerstick) 153 mg/dL (70-99) 152 mg/dL (70-99) 152 mg/dL (70-99) Prothrombin Time 26.8 SEC (11.7-14.0) Prothromb Time International Ratio 2.5 (0.8-1.1) Test 06/09/18 11:48 Glucose (Fingerstick) 104 mg/dL (70-99) Medications Active Scripts Medications Dose Route/Sig Max Daily Dose Days Date Category Preparation H Ointment (Phenyleph/Mineral Oil/Petrolat) 28 Gm Oint.appl 28 Gm RC QID 05/25/18 Reported Muscle Rub Cream (Methyl Salicylate/Menthol) 113 Gm Cream..g. 1 Gm TP TID 05/25/18 Reported Proair Hfa Inhaler (Albuterol Sulfate) 8.5 Gm Hfa.aer.ad 1 Puff INH PRN Q6HRS PRN 05/25/18 Reported Zyrtec (Cetirizine Hcl) 10 Mg Tablet 1 Tab PO DAILY 05/25/18 Reported Atorvastatin Calcium 40 Mg Tablet 1 Tab PO QHS 05/25/18 Reported Metformin Hcl 1,000 Mg Tablet 1,000 Mg PO BIDWMEALS 05/25/18 Reported Gabapentin (Gabapentin) 300 Mg Capsule 300 Mg PO DAILY 05/25/18 Reported Gabapentin 600 Mg Tablet 600 Mg PO DAILY08 05/25/18 Reported Flomax (Tamsulosin Hcl) 0.4 Mg Cap.er.24h 1 Cap PO DAILY 05/25/18 Reported Tylenol (Acetaminophen) 325 Mg Tablet 2 Tab PO TID PRN PRN 05/25/18 Reported Humulin R (Insulin Regular, Human) 100 Unit/1 Ml Vial 100 Unit IJ TIDAC 05/25/18 Reported Lisinopril 20 Mg Tablet 1 Tab PO DAILY 05/25/18 Reported Furosemide 20 Mg Tablet 1 Tab PO DAILY 05/25/18 Reported Coumadin (Warfarin Sodium) 4 Mg Tablet 1 Tab PO DAILY 05/25/18 Reported Actos (Pioglitazone Hcl) 45 Mg Tablet 1 Tab PO DAILY 05/25/18 Reported Novolin N (Nph, Human Insulin Isophane) 100 Unit/1 Ml Vial 20 Unit SQ BID 05/25/18 Reported Senna (Sennosides) 8.6 Mg Tablet 2 Mg PO BID 05/25/18 Reported Impression . 1. Multiple metastatic nodules in the lungs, likely related to underlying renal cell cancer with lung metastasis. He underwent right nephrectomy in 2011 for renal cancer. 2. History of chronic deep venous thrombosis since 1988. His venous Dopplers showing persistent deep venous thrombus in 2017 as well as from 02/2018. He will need lifelong anticoagulation. He likely has hypercoagulable state secondary to underlying malignancy. 3. Left lower extremity cellulitis, status post wound infection and wound VAC. Vascular Surgery following. 4. No significant history of tobacco use. 5. Hemoptysis IMPROVING 6. Anemia, needs to be closely followed up. Plan . RESP STATUS IS COMPENSATED NO SURGERY SCHEDULE PALLIATIVE RADIATION WILL CONTINUE THE SAME PT/OT CONTINUE ANTIBX COUMADIN FOLLOW ONCO INPUT WOUND VAC SANDER MARAVILLA MD Jun 09, 2018 12:10
[2018-06-09 15:00] VITALS: BP 123/49
--- NOTE | 2018-06-09 15:38 | NUR ---
pt is discharged back to the [facility]. Pt is to report back to [facility] on [address] for radiation. They will also see him on Tuesdays in the wound clinic. [facility] and gave her report on the pt. They made arrangements for transportation from [facility] to the facility. Gave the guard the packets of paperwork for the pt, which included the prescriptions for the pt and the appt times. Pt was wheeled down to the main entrance to be driven back to the facility. Ammon De La O RN
[2018-06-09] MEDS ORDERED: WARFARIN 7.5 MG TABLET. PO ONE (16:00)
[2018-06-13] MEDS ORDERED: ALLO100T PO (08:41)
[2018-06-13] MEDS ORDERED: HYDR-2761 PO (08:41)
--- NOTE | 2018-06-14 00:53 | PN ---
DATE: 06/13/2018 REFERRING DOCTOR: Marilyn Mike MD. DIAGNOSIS: Stage 4 renal cell carcinoma of the right kidney. In the past by his history, he had a right nephrectomy in [place], [place] in 2011. At that time, he had extensive disease involving distant organs including lung and possibly bladder. He was treated systemically with Sutent with responding or stable disease. He was treated by Dr. Jt Schneider in [place], [place] at that time. In 03/2018, he had disease progression. He was admitted here in 05/2018 for left lower extremity recurrent deep venous thrombosis, cellulitis and skin ulcers involving the pretibial space of his left leg. He also had symptomatic disease progression involving the right 9th rib for metastatic disease causing significant flank pain. We then proceeded with palliative radiation therapy to his right 9th rib metastatic lesion. Treatment was initiated as inpatient here and then was completed during his inmate status at the [facility]. The following is a summary of his treatment here. ICD 10 C64.1 J91.0 C79.51 C78.00 DATES OF TREATMENT: 06/07/2018 through 06/13/2018. REGION TREATED: Right posterolateral 9th rib lesion involving the right chest wall. Oblique treatment tang were used with CT-based treatment planning covering this lesion with margin sparing surrounding structures including lung. Dose volume histogram analysis was performed verifying coverage and normal tissue sparing. DOSE PER DAY: 5 Gy. NUMBER OF FRACTIONS: 5. TOTAL DOSE: 25 Gy. At the conclusion of treatment, he did note some improvement in his pain decreasing from 10 to 8 on a 10 scale of pain. At discharge, he had a PICC line placed for ongoing IV antibiotics for his cellulitis and pretibial skin ulcerated lesions.While on treatment, he experienced no cutaneous erythema. He will likely remain at the [facility] for ongoing IV antibiotics for several weeks. After completing antibiotics, he anticipates transferring back to his home skilled nursing. He plans to have oncologic followup with Dr. Jt Schneider in [place], [place] following transfer.. In summary, my impression is that of metastatic renal cell carcinoma with symptomatic disease progression involving the right posterolateral 9th rib. He has had a partial response to treatment with no significant toxicity. We anticipate further pain response in the weeks ahead. At this time if feasible, we plan to see him in followup in 1 month. Thank you again for allowing us to participate in his evaluation and care. VALERIE GOMES MD DR: GLORIA/edgard JOB#: [id number] / [id number] Jt Reynolds MD, Seth MD [facility] Obie Haley MD, Vinay MD MTDD
--- NOTE | 2018-07-25 14:55 | RAD ---
Exam: Fluoroscopic and ultrasound guided right upper extremity midline venous catheter placement 07/25/2018 2:51 PM .Indication: iv abx Technique: Informed oral and written consent were obtained. The right upper extremity was prepped and draped using sterile barrier technique. All elements of maximal sterile barrier technique including the use of a cap, mask, sterile gown, sterile gloves, large sterile sheet, appropriate hand hygiene, and 2% chlorhexidine for cutaneous antisepsis (or acceptable alternative antiseptic per current guidelines) were followed for this procedure.. Real-time ultrasound demonstrated a patent right basilic vein. The right upper extremity was prepped and draped in usual sterile fashion. 1% lidocaine used for local anesthesia. Using real-time ultrasound guidance the access needle percutaneously punctured the selected vein. Reference ultrasound images were saved to the medical record. A guidewire was advanced through the needle and a peel-away sheath placed. The catheter was cut to length and inserted through the peel-away sheath such that its was in the proximal right arm. The wire and sheath were removed, and the catheter secured in place, and a sterile dressing was applied. Catheter was found to flush and aspirate normally. No immediate complications are identified. FLUORO TIME: 9.3 minutes DOSE AREA PRODUCT: 32 Gycm2 Impression: Ultrasound and fluoroscopically guided placement of a right upper extremity midline
== END 2018-06-09 16:18 | disposition home or self-care (01) | DRG 853 ==
LOC: 6 SOUTH 15:58 → EEVIPCON 15:58 → 6 SOUTH 16:06
PROVIDERS: ADMIT Family Medicine; ATTEND Family Medicine
PROC: 0JBP0ZZ Excision of Left Lower Leg Subcutaneous Tissue and Fascia, Open Approach (ICD-10-PCS; principal; 2018-05-30 07:30)
PROC: 02HV33Z Insertion of Infusion Device into Superior Vena Cava, Percutaneous Approach (ICD-10-PCS; 2018-06-08)
PROC: B5181ZA Fluoroscopy of Superior Vena Cava using Low Osmolar Contrast, Guidance (ICD-10-PCS; 2018-06-08)
DX: A41.9 Sepsis, unspecified organism (principal); J18.9 Pneumonia, unspecified organism; L03.116 Cellulitis of left lower limb; E44.0 Moderate protein-calorie malnutrition; C64.1 Malignant neoplasm of right kidney, except renal pelvis; C78.00 Secondary malignant neoplasm of unspecified lung; C79.51 Secondary malignant neoplasm of bone; E27.1 Primary adrenocortical insufficiency; I82.512 Chronic embolism and thrombosis of left femoral vein; I74.9 Embolism and thrombosis of unspecified artery; L97.829 Non-pressure chronic ulcer of other part of left lower leg with unspecified severity; E11.42 Type 2 diabetes mellitus with diabetic polyneuropathy; I10 Essential (primary) hypertension; E11.51 Type 2 diabetes mellitus with diabetic peripheral angiopathy without gangrene; Z68.38 Body mass index [BMI] 38.0-38.9, adult; D64.9 Anemia, unspecified; D69.6 Thrombocytopenia, unspecified; E78.5 Hyperlipidemia, unspecified; I87.2 Venous insufficiency (chronic) (peripheral); I87.8 Other specified disorders of veins; J43.9 Emphysema, unspecified; J45.909 Unspecified asthma, uncomplicated; K21.9 Gastro-esophageal reflux disease without esophagitis; E66.01 Morbid (severe) obesity due to excess calories; K59.00 Constipation, unspecified; L81.0 Postinflammatory hyperpigmentation; B95.62 Methicillin resistant Staphylococcus aureus infection as the cause of diseases classified elsewhere; N40.0 Benign prostatic hyperplasia without lower urinary tract symptoms; Z79.01 Long term (current) use of anticoagulants; Z79.4 Long term (current) use of insulin; Z79.899 Other long term (current) drug therapy; Z80.3 Family history of malignant neoplasm of breast; Z82.49 Family history of ischemic heart disease and other diseases of the circulatory system; Z85.528 Personal history of other malignant neoplasm of kidney; Z86.14 Personal history of Methicillin resistant Staphylococcus aureus infection; Z90.5 Acquired absence of kidney; Z86.711 Personal history of pulmonary embolism; Z88.8 Allergy status to other drugs, medicaments and biological substances; I83.028 Varicose veins of left lower extremity with ulcer other part of lower leg
CPT/HCPCS: 36415; 36569; 71045; 71260; 73590; 73700; 76937; 77001; 77290; 77295; 77300; 77334; 77387; 77412; 80048; 80053; 81001; 82040; 82550; 82962; 83036; 83605; 85007; 85018; 85025; 85027; 85049; 85520; 85610; 85651; 87040; 87071; 87075; 87086; 87186; 87641; 93005; 93925; 93971; 94640; 94760; C1713; C1751; C1892; G0238; J0690; J1644; J1650; J1815; J2001; J2020; J2270; J2405; J2543; J2704; J3010; J3370; J7030; J7040; J7620; Q0144; Q9967; 97116; 97530; A4461

== ENCOUNTER → 2018-05-25 | Outpatient (CLI) | payer OTHER ==
[2018-05-25 12:50] LABS: BASO % 0 % (0-3); EOS % 0 % (0-3); HEMATOCRIT 35.5 % (39.0-53.0); HEMOGLOBIN 11.5 g/dL (13.0-17.5); LYMPH # 2.9 x10^3/uL (1.0-4.8); LYMPH % 25 % (24-48); MEAN CORPUSCULAR HEMOGLOBIN 32 pg (25-35); MEAN CORPUSCULAR HGB CONC 33 g/dL (31-37); MEAN CORPUSCULAR VOLUME 98 fL (79-100); MONO # 0.8 x10^3/uL (0.0-1.1); MONO % 7 % (0-9); NEUT # 7.6 x10^3uL (1.8-7.7); NEUT % 67 % (31-73); PLATELET COUNT 169 x10^3/uL (140-400); RED BLOOD COUNT 3.62 x10^6/uL (4.30-5.70); RED CELL DISTRIBUTION WIDTH 17.4 % (11.5-14.5); WHITE BLOOD COUNT 11.4 x10^3/uL (4.0-11.0)
[2018-05-25 12:51] LABS: CREATININE 1.2 mg/dL (0.7-1.3); GFR 62.2
== END | disposition home or self-care (01) ==
LOC: PMGWOUND 12:01
PROVIDERS: ATTEND Preventive Medicine Undersea and Hyperbaric Medicine
DX: E11.622 Type 2 diabetes mellitus with other skin ulcer (principal); L97.825 Non-pressure chronic ulcer of other part of left lower leg with muscle involvement without evidence of necrosis; I87.012 Postthrombotic syndrome with ulcer of left lower extremity; E11.42 Type 2 diabetes mellitus with diabetic polyneuropathy; E11.51 Type 2 diabetes mellitus with diabetic peripheral angiopathy without gangrene; L84 Corns and callosities; E78.5 Hyperlipidemia, unspecified; I10 Essential (primary) hypertension; I87.2 Venous insufficiency (chronic) (peripheral); E66.9 Obesity, unspecified; Z68.36 Body mass index [BMI] 36.0-36.9, adult; Z85.528 Personal history of other malignant neoplasm of kidney; Z86.718 Personal history of other venous thrombosis and embolism; Z85.118 Personal history of other malignant neoplasm of bronchus and lung
CPT/HCPCS: 36415; 80048; 85025; 85651; 99215; G0463

== ENCOUNTER 2018-06-22 13:29 | Inpatient (IN) | payer MEDICARE, MEDICAID ==
[~2018-06-22] VITALS: Ht 172.7 cm; Wt 127.9 kg
[2018-06-22] MEDS: TAMSULOSIN 0.4 MG CAP.ER.24H. PO SCH (13:00)
[~2018-06-22 13:29] MED LIST changes: -CABO60TA PO; -DOCU100C28 PO; -HYDR12.575 PO; -LACT20SO PO; -MORP30TA3 PO; -ONDA4TAB7 PO; -PANT20TA2 PO; -PNV1TABL31 PO; -WARF6TAB47 PO
[2018-06-22] MEDS ORDERED: ACETAMINOPHEN 325 MG TABLET. PO PRN ×2 (14:15)
[2018-06-22] MEDS ORDERED: PROCHLORPERAZINE 10 MG/2 ML VIAL. IV PRN (14:15)
[2018-06-22] MEDS ORDERED: ONDANSETRON PF 4 MG/2 ML VIAL. IV PRN (14:15)
[2018-06-22] MEDS ORDERED: PROCHLORPERAZINE 25 MG SUPP.RECT. PR PRN (14:15)
[2018-06-22] MEDS ORDERED: MORPHINE SULFATE 2 MG/ML VIAL. IV PRN (14:15)
[2018-06-22] MEDS ORDERED: CALCIUM CARBONATE 500 MG TAB.CHEW PO PRN (14:15)
[2018-06-22] MEDS ORDERED: DEXTROSE 50% 25 GM / 50ML DISP.SYRIN. IV PRN (14:15)
[2018-06-22] MEDS ORDERED: ZOLPIDEM 5 MG TABLET. PO PRN (14:15)
[2018-06-22] MEDS ORDERED: MAG HYDROX/ALUMINUM HYD/SIMETH 30 ML ORAL.SUSP PO PRN (14:15)
--- NOTE | 2018-06-22 14:36 | PDOC1 ---
History and Physical Date of Admission Date of Admission DATE: 06/22/18 TIME: 14:31 Identification/Chief Complaint Chief Complaint Leg wounds again left Source Source: Caregiver, Chart review, Patient History of Present Illness History of Present Illness 57-year-old male referred by [facility] wound care because of left leg wounds again that is not getting better in outpatient setting I know him from before: Date of Admission: May 25, 2018 Date of Discharge: Jun 09, 2018 Admitting Diagnosis Comment: 1. marked complicated acute cellulitis left lower leg, - needed wound vac 2. Occlusive thrombus left femoral vein-possibly remnant of previous DVT on that same leg 3. diabetes 2, mod control 4. hypertension 5. OBESITY, BMI 38 6. [place] prisoner low security 7. mod protein, caloric malnutrition 8. 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 ThromboCytopenia, platelets 136 with some hemoptysis 11. INmate 12,. 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- for 5 day radiaton tx He is finished with radiation for the solitray RT rib mets causing pain and is planned to follow-up one month from now with rad onc as instructed. He is on a chemotherapy agent by an outside team EITHER in [place] or [place]. He came from residential and will be released 1 year from now. He has left leg blisters redness, some induration but much better than before. HE claims wound care in residential is not ideal. HE is off wound vac,. No fevers. Labs are pending. Supposed to be on warfarin because of RCC, hx history of recurrent DVT PE etc. Relays to me MS Contin 30 twice a day in residential and some when necessary narcotic. Actos has been DC'd. He has a solitary kidney so I am not comfortable giving metformin 1000 twice a day Will involve ID, wound care restart MS Contin by mouth pain meds. DC Actos and metformin Past Medical History Cardiovascular: HTN CENTRAL NERVOUS SYSTEM: Periperal neuropathy GI: No pertinent hx Heme/Onc: No pertinent hx Musculoskeletal: Stiffness Infectious disease: No pertinent hx, Other Renal/: No pertinent hx Endocrine: Diabetes Past Surgical History Past Surgical History: Hernia Repair, Other Family History Family History: Hypertension Social History Smoke: No ALCOHOL: none Drugs: None Current Medications Current Medications Current Medications Ondansetron HCl (Zofran) 4 mg PRN Q6HRS PRN IV NAUSEA/VOMITING; Start 06/22/18 at 14:15 Prochlorperazine Edisylate (Compazine) 10 mg PRN Q6HRS PRN IV NAUSEA/VOMITING, 2ND CHOICE; Start 06/22/18 at 14:15 Prochlorperazine (Compazine) 25 mg PRN Q12HR PRN NM NAUSEA/VOMITING; Start 02/28 at 14:15 Al Hydroxide/Mg Hydroxide (Mylanta Plus Xs) 30 ml PRN Q3HRS PRN PO HEARTBURN / GAS; Start 06/22/18 at 14:15 Calcium Carbonate/ Glycine (Tums) 500 mg PRN Q3HRS PRN PO UPSET STOMACH; Start 06/22/18 at 14:15 Zolpidem Tartrate (Ambien) 5 mg PRN QHS PRN PO INSOMNIA, MAY REPEAT IN 1HR; Start 06/22/18 at 14:15 Oxycodone HCl (Roxicodone) 5 mg PRN Q3HRS PRN PO BREAKTHROUGH PAIN; Start 06/22 at 14:15 Morphine Sulfate (Morphine Sulfate) 2 mg PRN Q2HR PRN IV PAIN; Start 06/22/18 at 14:15 Acetaminophen (Tylenol) 650 mg PRN Q6HRS PRN PO Headaches, Temp > 101.5F; Start 06/22/18 at 14:15; Status UNV Docusate Sodium (Colace) 100 mg BID PO ; Start 06/22/18 at 21:00; Status UNV Heparin Sodium (Porcine) (Heparin Sodium) 5,000 unit Q8HRS SQ ; Start 06/22/18 at 22:00; Status UNV Acetaminophen (Tylenol) 650 mg TID PRN PRN PO PAIN; Start 06/22/18 at 14:15; Status UNV Albuterol Sulfate (Ventolin Neb Soln) 2.5 mg PRN Q6HRS PRN INH SHORTNESS OF BREATH; Start 06/22/18 at 14:15; Status UNV Allopurinol (Zyloprim) 100 mg DAILY PO ; Start 06/23/18 at 09:00; Status UNV Atorvastatin Calcium (Lipitor) 40 mg QHS PO ; Start 06/22/18 at 21:00; Status UNV Bacitracin/ Polymyxin B Sulfate (Polysporin) 1 yanira TID TP ; Start 06/22/18 at 21 :00; Status UNV Furosemide (Lasix) 20 mg DAILY PO ; Start 06/23/18 at 09:00; Status UNV Gabapentin (Neurontin) 900 mg HS PO ; Start 06/22/18 at 21:00; Status UNV Acetaminophen/ Hydrocodone Bitart (Lortab 5/325) 1 tab PRN Q6HRS PRN PO PAIN; Start 06/22/18 at 14:15; Status UNV Insulin Human Lispro (HumaLOG) 4 units TIDWMEALS SQ ; Start 06/22/18 at 17:00; Status UNV Lisinopril (Prinivil) 20 mg DAILY PO ; Start 06/23/18 at 09:00; Status UNV Tamsulosin HCl (Flomax) 0.4 mg DAILY PO ; Start 06/23/18 at 09:00; Status UNV Non-Formulary Medication (Gabapentin ) 600 mg DAILY08 PO ; Start 06/23/18 at 08: 00; Status UNV Non-Formulary Medication (Metformin Hcl ) 1,000 mg BIDWMEALS PO ; Start at 17:00; Status UNV Non-Formulary Medication (Methyl Salicylate/ Menthol (Muscle Rub Cream)) 1 gm TID TP ; Start 06/22/18 at 21:00; Status UNV Non-Formulary Medication (Sennosides (Senna)) 2 mg BID PO ; Start 06/22/18 at 21 :00; Status UNV Cetirizine HCl (ZyrTEC) 10 mg DAILY PO ; Start 06/23/18 at 09:00; Status UNV Non-Formulary Medication (Nph, Human Insulin Isophane (Novolin N)) 20 unit BID SQ ; Start 06/22/18 at 21:00; Status UNV Non-Formulary Medication (Pioglitazone Hcl (Actos)) 1 tab DAILY PO ; Start 06/23 at 09:00; Status UNV Warfarin Sodium (Coumadin Per Pharmacy) 1 each PRN DAILY PRN MC SEE COMMENTS; Start 06/22/18 at 14:15; Status UNV Insulin Human Lispro (HumaLOG) 0-9 UNITS TIDWMEALS SQ ; Start 06/22/18 at 17:00 ; Status UNV Dextrose (Dextrose 50%-Water Syringe) 12.5 gm PRN Q15MIN PRN IV SEE COMMENTS; Start 06/22/18 at 14:15; Status UNV Active Scripts Active Bacitracin-Polymyxin Ointment (Bacitracin/Polymyxin B Sulfate) 28.35 Gm Oint...g. 1 Yainra TP TID MDD 1 Humalog (Insulin Lispro) 100 Unit/1 Ml Insuln.pen 4 Units SQ TIDWMEALS MDD 1 Gabapentin 300 Mg Capsule 900 Mg PO HS MDD 1 Reported Hydrocodone-Apap 5-325 (Hydrocodone Bit/Acetaminophen) 1 Tab Tablet 1 Tab PO PRN Q6HRS PRN Allopurinol 100 Mg Tablet 100 Mg PO 2TABS PO DAILY Muscle Rub Cream (Methyl Salicylate/Menthol) 113 Gm Cream..g. 1 Gm TP TID Proair Hfa Inhaler (Albuterol Sulfate) 8.5 Gm Hfa.aer.ad 1 Puff INH PRN Q6HRS PRN Zyrtec (Cetirizine Hcl) 10 Mg Tablet 1 Tab PO DAILY Atorvastatin Calcium 40 Mg Tablet 1 Tab PO QHS Metformin Hcl 1,000 Mg Tablet 1,000 Mg PO BIDWMEALS Gabapentin 600 Mg Tablet 600 Mg PO DAILY08 Flomax (Tamsulosin Hcl) 0.4 Mg Cap.er.24h 1 Cap PO DAILY Tylenol (Acetaminophen) 325 Mg Tablet 2 Tab PO TID PRN PRN Humulin R (Insulin Regular, Human) 100 Unit/1 Ml Vial 100 Unit IJ TID SLIDING SCALE Lisinopril 20 Mg Tablet 1 Tab PO DAILY Furosemide 20 Mg Tablet 1 Tab PO DAILY Actos (Pioglitazone Hcl) 45 Mg Tablet 1 Tab PO DAILY Novolin N (Nph, Human Insulin Isophane) 100 Unit/1 Ml Vial 20 Unit SQ BID Senna (Sennosides) 8.6 Mg Tablet 2 Mg PO BID Allergies Allergies: Coded Allergies: I S O L A T I O N *CONTACT* (Verified Allergy, Unknown, 04/05/18) mrsa ibuprofen (Verified Adverse Reaction, Intermediate, 05/25/18) Warfarin ROS Review of System As per history of present illness, the rest of ROS 14 point negative Physical Exam General: Alert, Oriented X3, Cooperative, No acute distress HEENT: Atraumatic, PERRLA, EOMI Lungs: Clear to auscultation, Normal air movement Heart: S1S2, RRR, no thrills, no rubs, no gallops, no murmurs Cardiovascular: S1, S2 Abdomen: Normal bowel sounds, Soft, No tenderness, No hepatosplenomegaly, No masses Male Genitals Exam: normal genitalia, normal prostate Extremities: No clubbing, No cyanosis Skin: Other (F leg redness, 2 big raw skin or subcutaneous tissue exposed anterior lee, some induration proximal thigh anterior aspect, some leg edema, palpable [place] pedis but weak) Neuro: Normal gait, Normal speech, Strength at 5/5 X4 ext, Normal tone, Sensation intact, Cranial nerves 3-12 NL, Reflexes 2+ Psych/Mental Status: Mental status NL, Mood NL VTE Prophylaxis Ordered VTE Prophylaxis Devices: Yes VTE Pharmacological Prophylaxi: Yes Assessment/Plan Assessment/Plan 1. marked complicated acute cellulitis left lower leg, - off wound vac 2. Occlusive thrombus left femoral vein-possibly remnant of previous DVT on that same leg - on warf - INR pending 3. diabetes 2, mod control 4. hypertension 5. OBESITY, BMI 38 6. [place] prisoner low security - release date July 2018 7. mod protein, caloric malnutrition 8. 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 ThromboCytopenia, platelets 136 with some hemoptysis 11. INmate 12,. 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 PLAN: Admit 2 midnights, ID wound care consult IV antibiotics follow blood cultures Basic labs Wound care Continue warfarin with goal INR 2- 3 Watch out for hemoptysis or thrombocytopenia - he has that history Back to residential on discharge Further recommendations pending course SHAUN JOSE MD Jun 22, 2018 14:36
[2018-06-22] MEDS: HYDROcodone/APAP 5/325MG 1 TAB TABLET PO PRN ×2 (14:47→21:16)
[2018-06-22] MEDS: LISINOPRIL 20 MG TABLET PO SCH (14:48)
[2018-06-22] MEDS: CETIRIZINE HCL 10 MG TABLET. PO SCH (14:49)
[2018-06-22] MEDS: BACITRACIN/POLYMYXIN B TOPICAL OINT 15GM TUBE. TP SCH ×2 (14:49→21:00)
[2018-06-22 15:00] VITALS: BP 121/57
[2018-06-22] MEDS: FUROSEMIDE 40 MG TABLET. PO SCH (15:00)
[2018-06-22] MEDS ORDERED: FUROSEMIDE 20 MG TABLET PO SCH (15:00)
[2018-06-22] MEDS ORDERED: METHYL SALICYLATE/MENTHOL TOPICAL OINTMENT 29GM TUBE. TP SCH (15:00)
--- NOTE | 2018-06-22 15:48 | NUR ---
Wound Care Wound care consult for patient that was admitted to day for LLE cellulitis. PT was seen in [facility] today and was found to be in much worse condition than on 06/15/18. Pt LLE is reddened, swollen, with multiple blisters present over large area around 2 central wounds that have been being treated. Pt saw vascular Dr on Monday when profore wrap was removed, wounds were redressed with gauze and kerlix at that time. Since that time pt states swelling has gotten worse as well as pain and blisters that started last night. Dr Ireland debrided 2 central wounds and decided to admit pt for cellulitis of LLE. Photos and wound care instructions (contact layer, aquacel ag, abds and kerlix with G medigrips Q2D and PRN) were sent with pt to floor. will follow up on Monday.
[2018-06-22] MEDS: ALBUTEROL SULFATE 2.5 MG/3 ML NEBU. INH PRN ×2 (16:12→20:18)
[2018-06-22 16:43] LABS: PROTHROMBIN TIME PATIENT 19.4 SEC (11.7-14.0)
[2018-06-22] MEDS: INSULIN LISPRO 300 UNITS/3 ML INSULN.PEN. SQ SCH ×2 (17:00→17:59)
[2018-06-22] MEDS ORDERED: WARFARIN 4 MG TABLET. PO ONE (18:00)
[2018-06-22] MEDS: oxyCODONE IR 5 MG TABLET PO PRN (18:03)
[2018-06-22 19:00] VITALS: BP 111/43
--- NOTE | 2018-06-22 19:40 | NUR ---
Pt's PICC line flushed and dressing changed, redness noted. Pt tolerated well, will continue to monitor.
[2018-06-22] MEDS: METHYL SALICYLATE/MENTHOL TOPICAL OINTMENT 29GM TUBE. TP SCH (21:00)
[2018-06-22] MEDS: SENNOSIDES 8.6 MG TABLET PO SCH (21:16)
[2018-06-22] MEDS: GABAPENTIN 300 MG CAPSULE. PO SCH (21:16)
[2018-06-22] MEDS: ATORVASTATIN CALCIUM 40 MG TABLET. PO SCH (21:16)
[2018-06-22] MEDS: DOCUSATE SODIUM 100 MG CAPSULE. PO SCH (21:16)
[2018-06-22] MEDS: INSULIN GLARGINE 300 UNITS/3 ML INSULN.PEN. SQ SCH (21:36)
[2018-06-22] MEDS ORDERED: HEPARIN for SUB-Q USE 5,000 UNIT/ML VIAL. SQ SCH (22:00)
[2018-06-22 23:00] VITALS: BP 107/42
[2018-06-23 03:00] VITALS: BP 130/62
[2018-06-23 07:00] VITALS: BP 133/58
[2018-06-23] MEDS: ALBUTEROL SULFATE 2.5 MG/3 ML NEBU. INH PRN ×4 (07:49→20:49)
[2018-06-23] MEDS: INSULIN LISPRO 300 UNITS/3 ML INSULN.PEN. SQ SCH ×6 (08:00→16:49)
[2018-06-23 08:38] LABS: BASO % 0 % (0-3); EOS % 1 % (0-3); HEMATOCRIT 27.7 % (39.0-53.0); HEMOGLOBIN 8.8 g/dL (13.0-17.5); LYMPH # 2.3 x10^3/uL (1.0-4.8); LYMPH % 44 % (24-48); MEAN CORPUSCULAR HEMOGLOBIN 30 pg (25-35); MEAN CORPUSCULAR HGB CONC 32 g/dL (31-37); MEAN CORPUSCULAR VOLUME 94 fL (79-100); MONO # 0.7 x10^3/uL (0.0-1.1); MONO % 13 % (0-9); NEUT # 2.2 x10^3uL (1.8-7.7); NEUT % 42 % (31-73); PLATELET COUNT 131 x10^3/uL (140-400); RED BLOOD COUNT 2.95 x10^6/uL (4.30-5.70); RED CELL DISTRIBUTION WIDTH 18.5 % (11.5-14.5); WHITE BLOOD COUNT 5.3 x10^3/uL (4.0-11.0)
[2018-06-23] MEDS: FUROSEMIDE 40 MG TABLET. PO SCH (08:40)
[2018-06-23] MEDS: TAMSULOSIN 0.4 MG CAP.ER.24H. PO SCH (08:40)
[2018-06-23] MEDS: DOCUSATE SODIUM 100 MG CAPSULE. PO SCH ×2 (08:40→20:58)
[2018-06-23] MEDS: CETIRIZINE HCL 10 MG TABLET. PO SCH (08:40)
[2018-06-23] MEDS: LISINOPRIL 20 MG TABLET PO SCH (08:40)
[2018-06-23] MEDS: ALLOPURINOL 100 MG TABLET. PO SCH (08:40)
[2018-06-23] MEDS: GABAPENTIN 300 MG CAPSULE. PO SCH ×2 (08:41→20:58)
[2018-06-23] MEDS: SENNOSIDES 8.6 MG TABLET PO SCH ×2 (08:41→20:58)
[2018-06-23] MEDS: HYDROcodone/APAP 5/325MG 1 TAB TABLET PO PRN ×3 (08:42→20:58)
[2018-06-23 08:52] LABS: CALCIUM 9.3 mg/dL (8.5-10.1); CREATININE 1.2 mg/dL (0.7-1.3); GFR 62.2; POTASSIUM 5.3 mmol/L (3.5-5.1)
[2018-06-23] MEDS: INSULIN GLARGINE 300 UNITS/3 ML INSULN.PEN. SQ SCH ×2 (08:52→21:13)
[2018-06-23 09:00] LABS: PROTHROMBIN TIME PATIENT 21.5 SEC (11.7-14.0)
[2018-06-23] MEDS: BACITRACIN/POLYMYXIN B TOPICAL OINT 15GM TUBE. TP SCH ×3 (09:00→21:00)
[2018-06-23] MEDS ORDERED: PIOGLITAZONE HCL PO SCH (09:00)
[2018-06-23] MEDS: METHYL SALICYLATE/MENTHOL TOPICAL OINTMENT 29GM TUBE. TP SCH ×3 (09:00→21:00)
--- NOTE | 2018-06-23 09:24 | PDOC ---
PROGRESS NOTES Chief Complaint Chief Complaint 1. marked complicated acute cellulitis left lower leg, - off wound vac 2. Occlusive thrombus left femoral vein-possibly remnant of previous DVT on that same leg - on warf - INR pending 3. diabetes 2, mod control 4. hypertension 5. OBESITY, BMI 38 6. [employer] prisoner low security - release date July 2018 7. mod protein, caloric malnutrition 8. 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 ThromboCytopenia, platelets 136 with some hemoptysis 11. INmate 12,. 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 History of Present Illness History of Present Illness Has no complaints to me No change from when I last saw him 12 hours ago Still waiting on wound care and ID to see ESR is only 55 with normal white count and no fevers Potassium mildly high 5.3 INR is subtherapeutic 1.9-he does have some thrombocytopenia history and bleeding hemoptysis etc. history On war for hx DVT, PE<, RCC Plan: warfarin per pharmacy Kayexalate 15 g 1 and recheck BMP tomorrow Follow wound care and ID recommendations Off wound VAC We'll go back to alf on discharge Vitals Vitals Vital Signs Date Time Temp Pulse Resp B/P (MAP) Pulse Ox O2 Delivery O2 Flow Rate FiO2 06/23/18 08:42 91 Room Air 06/23/18 08:40 103 133/58 06/23/18 07:00 98.2 17 98.2 Physical Exam General: Alert, Oriented X3, Cooperative, No acute distress Lungs: Clear Abdomen: Normal bowel sounds, Soft, No tenderness, No hepatosplenomegaly, No masses Extremities: No clubbing, No cyanosis Skin: Other (F leg redness, 2 big raw skin or subcutaneous tissue exposed anterior lee, some induration proximal thigh anterior aspect, some leg edema, palpable [place] pedis but weak) Labs LABS Laboratory Tests Test 06/22/18 15:22 06/22/18 17:03 06/23/18 07:19 06/23/18 08:00 Erythrocyte Sedimentation Rate 55 (0-15) Prothrombin Time 19.4 SEC (11.7-14.0) 21.5 SEC (11.7-14.0) Prothromb Time International Ratio 1.7 (0.8-1.1) 1.9 (0.8-1.1) Glucose (Fingerstick) 125 mg/dL (70-99) 138 mg/dL (70-99) White Blood Count 5.3 x10^3/uL (4.0-11.0) Red Blood Count 2.95 x10^6/uL (4.30-5.70) Hemoglobin 8.8 g/dL (13.0-17.5) Hematocrit 27.7 % (39.0-53.0) Mean Corpuscular Volume 94 fL (79-100) Mean Corpuscular Hemoglobin 30 pg (25-35) Mean Corpuscular Hemoglobin Concent 32 g/dL (31-37) Red Cell Distribution Width 18.5 % (11.5-14.5) Platelet Count 131 x10^3/uL (140-400) Neutrophils (%) (Auto) 42 % (31-73) Lymphocytes (%) (Auto) 44 % (24-48) Monocytes (%) (Auto) 13 % (0-9) Eosinophils (%) (Auto) 1 % (0-3) Basophils (%) (Auto) 0 % (0-3) Neutrophils # (Auto) 2.2 x10^3uL (1.8-7.7) Lymphocytes # (Auto) 2.3 x10^3/uL (1.0-4.8) Monocytes # (Auto) 0.7 x10^3/uL (0.0-1.1) Eosinophils # (Auto) 0.0 x10^3/uL (0.0-0.7) Basophils # (Auto) 0.0 x10^3/uL (0.0-0.2) Sodium Level 141 mmol/L (136-145) Potassium Level 5.3 mmol/L (3.5-5.1) Chloride Level 103 mmol/L (98-107) Carbon Dioxide Level 30 mmol/L (21-32) Anion Gap 8 (6-14) Blood Urea Nitrogen 18 mg/dL (8-26) Creatinine 1.2 mg/dL (0.7-1.3) Estimated GFR (Cockcroft-Gault) 62.2 Glucose Level 148 mg/dL (70-99) Calcium Level 9.3 mg/dL (8.5-10.1) Review of Systems Review of Systems A 14 point ROS was completed with the following noted as positive: Other systems reviewed and negative. \CONSTITUTIONAL: No fever or chills EYES: No recent changes SKIN: No rash or itching CARDIOVASCULAR: No chest pain, syncope, palpitations, or edema RESPIRATORY: No SOB or cough GASTROINTESTINAL: No nausea, vomiting or abdominal pain NEUROLOGICAL: No headaches or weakness ENDOCRINE: No cold or heat intolerance GENITOURINARY: No urgency or frequency of urination MUSCULOSKELETAL: No back pain or joint pain LYMPHATICS: No enlarged lymph nodes PSYCHIATRIC: No anxiety or depression Comment Review of Relevant I have reviewed the following items anjana (where applicable) has been applied. Labs Laboratory Tests Test 06/22/18 15:22 06/22/18 17:03 06/23/18 07:19 06/23/18 08:00 Erythrocyte Sedimentation Rate 55 (0-15) Prothrombin Time 19.4 SEC (11.7-14.0) 21.5 SEC (11.7-14.0) Prothromb Time International Ratio 1.7 (0.8-1.1) 1.9 (0.8-1.1) Glucose (Fingerstick) 125 mg/dL (70-99) 138 mg/dL (70-99) White Blood Count 5.3 x10^3/uL (4.0-11.0) Red Blood Count 2.95 x10^6/uL (4.30-5.70) Hemoglobin 8.8 g/dL (13.0-17.5) Hematocrit 27.7 % (39.0-53.0) Mean Corpuscular Volume 94 fL (79-100) Mean Corpuscular Hemoglobin 30 pg (25-35) Mean Corpuscular Hemoglobin Concent 32 g/dL (31-37) Red Cell Distribution Width 18.5 % (11.5-14.5) Platelet Count 131 x10^3/uL (140-400) Neutrophils (%) (Auto) 42 % (31-73) Lymphocytes (%) (Auto) 44 % (24-48) Monocytes (%) (Auto) 13 % (0-9) Eosinophils (%) (Auto) 1 % (0-3) Basophils (%) (Auto) 0 % (0-3) Neutrophils # (Auto) 2.2 x10^3uL (1.8-7.7) Lymphocytes # (Auto) 2.3 x10^3/uL (1.0-4.8) Monocytes # (Auto) 0.7 x10^3/uL (0.0-1.1) Eosinophils # (Auto) 0.0 x10^3/uL (0.0-0.7) Basophils # (Auto) 0.0 x10^3/uL (0.0-0.2) Sodium Level 141 mmol/L (136-145) Potassium Level 5.3 mmol/L (3.5-5.1) Chloride Level 103 mmol/L (98-107) Carbon Dioxide Level 30 mmol/L (21-32) Anion Gap 8 (6-14) Blood Urea Nitrogen 18 mg/dL (8-26) Creatinine 1.2 mg/dL (0.7-1.3) Estimated GFR (Cockcroft-Gault) 62.2 Glucose Level 148 mg/dL (70-99) Calcium Level 9.3 mg/dL (8.5-10.1) Laboratory Tests Test 06/22/18 15:22 06/22/18 17:03 06/23/18 07:19 06/23/18 08:00 Erythrocyte Sedimentation Rate 55 (0-15) Prothrombin Time 19.4 SEC (11.7-14.0) 21.5 SEC (11.7-14.0) Prothromb Time International Ratio 1.7 (0.8-1.1) 1.9 (0.8-1.1) Glucose (Fingerstick) 125 mg/dL (70-99) 138 mg/dL (70-99) White Blood Count 5.3 x10^3/uL (4.0-11.0) Red Blood Count 2.95 x10^6/uL (4.30-5.70) Hemoglobin 8.8 g/dL (13.0-17.5) Hematocrit 27.7 % (39.0-53.0) Mean Corpuscular Volume 94 fL (79-100) Mean Corpuscular Hemoglobin 30 pg (25-35) Mean Corpuscular Hemoglobin Concent 32 g/dL (31-37) Red Cell Distribution Width 18.5 % (11.5-14.5) Platelet Count 131 x10^3/uL (140-400) Neutrophils (%) (Auto) 42 % (31-73) Lymphocytes (%) (Auto) 44 % (24-48) Monocytes (%) (Auto) 13 % (0-9) Eosinophils (%) (Auto) 1 % (0-3) Basophils (%) (Auto) 0 % (0-3) Neutrophils # (Auto) 2.2 x10^3uL (1.8-7.7) Lymphocytes # (Auto) 2.3 x10^3/uL (1.0-4.8) Monocytes # (Auto) 0.7 x10^3/uL (0.0-1.1) Eosinophils # (Auto) 0.0 x10^3/uL (0.0-0.7) Basophils # (Auto) 0.0 x10^3/uL (0.0-0.2) Sodium Level 141 mmol/L (136-145) Potassium Level 5.3 mmol/L (3.5-5.1) Chloride Level 103 mmol/L (98-107) Carbon Dioxide Level 30 mmol/L (21-32) Anion Gap 8 (6-14) Blood Urea Nitrogen 18 mg/dL (8-26) Creatinine 1.2 mg/dL (0.7-1.3) Estimated GFR (Cockcroft-Gault) 62.2 Glucose Level 148 mg/dL (70-99) Calcium Level 9.3 mg/dL (8.5-10.1) Medications Current Medications Ondansetron HCl (Zofran) 4 mg PRN Q6HRS PRN IV NAUSEA/VOMITING; Start 06/22/18 at 14:15 Prochlorperazine Edisylate (Compazine) 10 mg PRN Q6HRS PRN IV NAUSEA/VOMITING, 2ND CHOICE; Start 06/22/18 at 14:15 Prochlorperazine (Compazine) 25 mg PRN Q12HR PRN FL NAUSEA/VOMITING; Start 02/28 at 14:15 Al Hydroxide/Mg Hydroxide (Mylanta Plus Xs) 30 ml PRN Q3HRS PRN PO HEARTBURN / GAS; Start 06/22/18 at 14:15 Calcium Carbonate/ Glycine (Tums) 500 mg PRN Q3HRS PRN PO UPSET STOMACH; Start 06/22/18 at 14:15 Zolpidem Tartrate (Ambien) 5 mg PRN QHS PRN PO INSOMNIA, MAY REPEAT IN 1HR; Start 06/22/18 at 14:15 Oxycodone HCl (Roxicodone) 5 mg PRN Q3HRS PRN PO BREAKTHROUGH PAIN Last administered on 06/22/18at 18:03; Start 06/22/18 at 14:15 Morphine Sulfate (Morphine Sulfate) 2 mg PRN Q2HR PRN IV PAIN; Start 06/22/18 at 14:15 Acetaminophen (Tylenol) 650 mg PRN Q6HRS PRN PO Headaches, Temp > 101.5F; Start 06/22/18 at 14:15 Docusate Sodium (Colace) 100 mg BID PO Last administered on 06/23/18 08:40; Start 06/22/18 at 21:00 Heparin Sodium (Porcine) (Heparin Sodium) 5,000 unit Q8HRS SQ ; Start 06/22/18 at 22:00; Stop 06/22/18 at 22:00; Status DC Acetaminophen (Tylenol) 650 mg TID PRN PRN PO MILD PAIN; Start 06/22/18 at 14: 15 Albuterol Sulfate (Ventolin Neb Soln) 2.5 mg PRN Q6HRS PRN INH SHORTNESS OF BREATH Last administered on 06/23/18at 07:49; Start 06/22/18 at 14:15 Allopurinol (Zyloprim) 100 mg DAILY PO Last administered on 06/23/18 08:40; Start 06/23/18 at 09:00 Atorvastatin Calcium (Lipitor) 40 mg QHS PO Last administered on 06/22/18at 21: 16; Start 06/22/18 at 21:00 Bacitracin/ Polymyxin B Sulfate (Polysporin) 1 yanira TID TP ; Start 06/22/18 at 15 :00 Furosemide (Lasix) 20 mg DAILY PO ; Start 06/22/18 at 15:00; Stop 06/22/18 at 15 :00; Status DC Gabapentin (Neurontin) 900 mg HS PO Last administered on 06/22/18at 21:16; Start 06/22/18 at 21:00 Acetaminophen/ Hydrocodone Bitart (Lortab 5/325) 1 tab PRN Q6HRS PRN PO MODERATE PAIN Last administered on 06/23/18at 08:42; Start 06/22/18 at 14:15 Insulin Human Lispro (HumaLOG) 4 units TIDWMEALS SQ Last administered on at 17:59; Start 06/22/18 at 17:00 Lisinopril (Prinivil) 20 mg DAILY PO Last administered on 06/23/18at 08:40; Start 06/22/18 at 15:00 Tamsulosin HCl (Flomax) 0.4 mg DAILY PO Last administered on 06/23/18 08:40; Start 06/22/18 at 13:00 Gabapentin (Neurontin) 600 mg DAILY08 PO Last administered on 06/23/18 08:41; Start 06/23/18 at 08:00 Non-Formulary Medication (Metformin Hcl ) 1,000 mg BIDWMEALS PO ; Start at 17:00; Stop 06/22/18 at 17:00; Status DC Multi-Ingredient Ointment (Analgesic [place]) 1 yanira TID TP ; Start 06/22/18 at 15: 00; Status Cancel Sennosides (Senna) 17.2 mg BID PO Last administered on 06/23/18 08:41; Start 06/22/18 at 21:00 Cetirizine HCl (ZyrTEC) 10 mg DAILY PO Last administered on 06/23/18 08:40; Start 06/22/18 at 15:00 Insulin Glargine (Lantus) 20 units BID SQ Last administered on 06/23/18at 08:52 ; Start 06/22/18 at 21:00 Non-Formulary Medication (Pioglitazone Hcl (Actos)) 1 tab DAILY PO ; Start 06/23 at 09:00; Stop 06/23/18 at 09:00; Status DC Warfarin Sodium (Coumadin Per Pharmacy) 1 each PRN DAILY PRN MC SEE COMMENTS; Start 06/22/18 at 14:15 Insulin Human Lispro (HumaLOG) 0-9 UNITS TIDWMEALS SQ ; Start 06/22/18 at 17:00 Dextrose (Dextrose 50%-Water Syringe) 12.5 gm PRN Q15MIN PRN IV SEE COMMENTS; Start 06/22/18 at 14:15 Furosemide (Lasix) 40 mg DAILY PO Last administered on 06/23/18 08:40; Start 06/22/18 at 15:00 Multi-Ingredient Ointment (Analgesic [place]) 1 yanira TID TP ; Start 06/22/18 at 21: 00 Warfarin Sodium (Coumadin) 4 mg 1X WARF ONCE PO Last administered on at 17:57; Start 06/22/18 at 18:00; Stop 06/22/18 at 18:01; Status DC Active Scripts Active Bacitracin-Polymyxin Ointment (Bacitracin/Polymyxin B Sulfate) 28.35 Gm Oint...g. 1 Yanira TP TID MDD 1 Humalog (Insulin Lispro) 100 Unit/1 Ml Insuln.pen 4 Units SQ TIDWMEALS MDD 1 Gabapentin 300 Mg Capsule 900 Mg PO HS MDD 1 Reported Hydrocodone-Apap 5-325 (Hydrocodone Bit/Acetaminophen) 1 Tab Tablet 1 Tab PO PRN Q6HRS PRN Allopurinol 100 Mg Tablet 100 Mg PO 2TABS PO DAILY Muscle Rub Cream (Methyl Salicylate/Menthol) 113 Gm Cream..g. 1 Gm TP TID Proair Hfa Inhaler (Albuterol Sulfate) 8.5 Gm Hfa.aer.ad 1 Puff INH PRN Q6HRS PRN Zyrtec (Cetirizine Hcl) 10 Mg Tablet 1 Tab PO DAILY Atorvastatin Calcium 40 Mg Tablet 1 Tab PO QHS Metformin Hcl 1,000 Mg Tablet 1,000 Mg PO BIDWMEALS Gabapentin 600 Mg Tablet 600 Mg PO DAILY08 Flomax (Tamsulosin Hcl) 0.4 Mg Cap.er.24h 1 Cap PO DAILY Tylenol (Acetaminophen) 325 Mg Tablet 2 Tab PO TID PRN PRN Humulin R (Insulin Regular, Human) 100 Unit/1 Ml Vial 100 Unit IJ TID SLIDING SCALE Lisinopril 20 Mg Tablet 1 Tab PO DAILY Furosemide 20 Mg Tablet 1 Tab PO DAILY Actos (Pioglitazone Hcl) 45 Mg Tablet 1 Tab PO DAILY Novolin N (Nph, Human Insulin Isophane) 100 Unit/1 Ml Vial 20 Unit SQ BID Senna (Sennosides) 8.6 Mg Tablet 2 Mg PO BID Vitals/I & O Vital Sign - Last 24 Hours 06/22/18 06/22/18 06/22/18 06/22/18 14:15 14:47 15:00 16:15 Temp 98.1 98.1 Pulse 97 Resp 16 B/P (MAP) 121/57 (78) Pulse Ox 98 94 O2 Delivery Room Air Room Air Room Air Room Air 06/22/18 06/22/18 06/22/18 06/22/18 18:03 19:00 19:10 19:30 Temp 98.1 98.1 Pulse 99 Resp 16 16 B/P (MAP) 111/43 (65) Pulse Ox 91 O2 Delivery Room Air Room Air Room Air Room Air 06/22/18 06/22/18 06/22/18 06/22/18 20:18 21:16 22:30 23:00 Temp 97.5 97.5 Pulse 105 Resp 18 18 16 B/P (MAP) 107/42 (63) Pulse Ox 94 91 O2 Delivery Room Air Room Air Room Air Room Air 06/23/18 06/23/18 06/23/18 06/23/18 03:00 07:00 07:51 08:40 Temp 98.1 98.2 98.1 98.2 Pulse 64 103 103 Resp 18 17 B/P (MAP) 130/62 (84) 133/58 (83) 133/58 Pulse Ox 98 93 91 O2 Delivery Room Air Room Air Room Air 06/23/18 08:42 Pulse Ox 91 O2 Delivery Room Air Intake and Output 06/22/18 06/22/18 06/23/18 14:59 22:59 06:59 Intake Total 400 ml 200 ml Output Total 1000 ml Balance 400 ml -800 ml SHAUN JOSE MD Jun 23, 2018 09:24
[2018-06-23] MEDS ORDERED: SODIUM POLYSTYRENE SULFONATE 15 GM/60 ML ORAL.SUSP. PO ONE (09:30)
[2018-06-23 10:53] LABS: MAGNESIUM 1.8 mg/dL (1.8-2.4); PHOSPHORUS 3.8 mg/dL (2.6-4.7)
[2018-06-23 11:00] VITALS: BP 115/49
--- NOTE | 2018-06-23 11:29 | NUR ---
Pharmacy Warfarin Dosing Note S:Pharmacy consulted to assist with anticoagulation therapy started with target INR: 2 -3 O:HELADIO GAO is a 57 year old M with DVT/PE LABS: Last INR: 1.9 Last HGB: 8.8 Last HCT: 27.7 Last PLT: 131 Last dose of 4 mg given on 06/22/18 at 1757 Previous Regimen: Vitamin K given: N Drug Interaction Changes: Ongoing Drug Interactions: A:INR of 1.9 is below desired range. Target range for this patient is: 2 -3 P: Warfarin dose: 4 mg Today at 1600. Bridge Therapy: None Next INR due tomorrow. Pharmacy anticoagulation service will continue to follow. John Watson [facility], 06/23/18 [id number]
[2018-06-23] MEDS: oxyCODONE IR 5 MG TABLET PO PRN ×3 (11:56→22:40)
--- NOTE | 2018-06-23 11:58 | NUR ---
This patient refused Humalog at 0900, and 1100. Education was completed, patient still refused. This nurse will continue to monitor.
--- NOTE | 2018-06-23 13:43 | NUR ---
This nurse paged MD with patient having increased pain in the right foot, as well as warmth increased. No new orders received.
--- NOTE | 2018-06-23 14:01 | PDOC ---
Infectious Disease Note Subjective Subjective Known to our service for infected nonhealing wounds of left leg. Refer to our consult from 05/27 and our last progress note, 06/08. He was discharged on 3 weeks of Cefazolin with instructions to follow-up in our office before stopping. He continued to follow with [facility] wound care center and was re-admitted yesterday for increase redness, blisters and pain of left leg. Patient says he doesn't feel good. c/o chills and ongoing left leg pain and redness. He says since admission, he's noticed his right foot is red. Denies fevers/sweats/N/V/D/SOA Denies any problems with PICC line ROS ROS per HPI otherwise neg Vital Sign Vital Signs Vital Signs Date Time Temp Pulse Resp B/P (MAP) Pulse Ox O2 Delivery O2 Flow Rate FiO2 06/23/18 12:24 Room Air 06/23/18 11:56 92 06/23/18 11:00 97.7 93 17 115/49 (71) 97.7 Physical Exam PHYSICAL EXAM GENERAL: Propped up in bed, alert, NAD HEENT: Pupils equally round. Normal conjunctivae. Oral cavity, pharynx pink and moist. No lesions. NECK: Supple. LUNGS: Clear to auscultation. HEART: S1 and S2. ABDOMEN: Obese, soft and nontender with bowel sounds present. EXTREMITIES: Edema 1+ lower extremities bilaterally. DP palpable. 2 large annular ulcers on anterior left leg with surrounding redness, warmth and blisters, He also has some mild redness and warmth to the dorsal aspect of the right foot. SKIN: Warm without rash. NEUROLOGIC: Alert and responds appropriately. RUE-PICC (06/08) without signs of any complications Labs Lab Laboratory Tests Test 06/22/18 15:22 06/22/18 17:03 06/23/18 07:19 06/23/18 08:00 Erythrocyte Sedimentation Rate 55 (0-15) Prothrombin Time 19.4 SEC (11.7-14.0) 21.5 SEC (11.7-14.0) Prothromb Time International Ratio 1.7 (0.8-1.1) 1.9 (0.8-1.1) Glucose (Fingerstick) 125 mg/dL (70-99) 138 mg/dL (70-99) White Blood Count 5.3 x10^3/uL (4.0-11.0) Red Blood Count 2.95 x10^6/uL (4.30-5.70) Hemoglobin 8.8 g/dL (13.0-17.5) Hematocrit 27.7 % (39.0-53.0) Mean Corpuscular Volume 94 fL (79-100) Mean Corpuscular Hemoglobin 30 pg (25-35) Mean Corpuscular Hemoglobin Concent 32 g/dL (31-37) Red Cell Distribution Width 18.5 % (11.5-14.5) Platelet Count 131 x10^3/uL (140-400) Neutrophils (%) (Auto) 42 % (31-73) Lymphocytes (%) (Auto) 44 % (24-48) Monocytes (%) (Auto) 13 % (0-9) Eosinophils (%) (Auto) 1 % (0-3) Basophils (%) (Auto) 0 % (0-3) Neutrophils # (Auto) 2.2 x10^3uL (1.8-7.7) Lymphocytes # (Auto) 2.3 x10^3/uL (1.0-4.8) Monocytes # (Auto) 0.7 x10^3/uL (0.0-1.1) Eosinophils # (Auto) 0.0 x10^3/uL (0.0-0.7) Basophils # (Auto) 0.0 x10^3/uL (0.0-0.2) Sodium Level 141 mmol/L (136-145) Potassium Level 5.3 mmol/L (3.5-5.1) Chloride Level 103 mmol/L (98-107) Carbon Dioxide Level 30 mmol/L (21-32) Anion Gap 8 (6-14) Blood Urea Nitrogen 18 mg/dL (8-26) Creatinine 1.2 mg/dL (0.7-1.3) Estimated GFR (Cockcroft-Gault) 62.2 Glucose Level 148 mg/dL (70-99) Calcium Level 9.3 mg/dL (8.5-10.1) Phosphorus Level 3.8 mg/dL (2.6-4.7) Magnesium Level 1.8 mg/dL (1.8-2.4) Test 06/23/18 11:25 Glucose (Fingerstick) 165 mg/dL (70-99) Objective Assessment Cellulitis of left lower extremity and right foot Nonhealing wounds of left lower extremity s/p I and D taken down to fascia on . MSSA Diabetes with peripheral neuropathy. h/o peripheral vascular disease. History of deep venous thrombosis, on warfarin therapy. 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 -was on Sutent for treatment Solitary kidney. Incarceration h/o MRSA and enterococcus Plan Plan of Care Continue Cefazolin and add Zyvox BC pending Wound care team consulted D/w nursing Thank you Patient seen and examined. Chart reviewed in detail. Case d/w CCU NURSE. Agree with above plan. LEONOR RAMAN APRN Jun 23, 2018 14:01 VIPIN CHAN MD Jun 23, 2018 20:30
[2018-06-23] MEDS: ceFAZolin SODIUM 1 GM in IV DEXTROSE 5% 50 ML IV SCH ×2 (14:41→22:37)
[2018-06-23 15:00] VITALS: BP 111/48
[2018-06-23] MEDS ORDERED: WARFARIN 4 MG TABLET. PO ONE (16:00)
[2018-06-23 19:20] VITALS: BP 101/40
[2018-06-23] MEDS: ATORVASTATIN CALCIUM 40 MG TABLET. PO SCH (20:58)
[2018-06-23 23:10] VITALS: BP 107/48
[2018-06-24 03:34] VITALS: BP 119/53
[2018-06-24] MEDS: oxyCODONE IR 5 MG TABLET PO PRN ×3 (05:29→17:29)
[2018-06-24 05:41] LABS: CALCIUM 9.4 mg/dL (8.5-10.1); CREATININE 1.1 mg/dL (0.7-1.3); GFR 68.8; POTASSIUM 4.8 mmol/L (3.5-5.1)
[2018-06-24] MEDS: HYDROcodone/APAP 5/325MG 1 TAB TABLET PO PRN ×3 (06:20→21:42)
[2018-06-24] MEDS: ceFAZolin SODIUM 1 GM in IV DEXTROSE 5% 50 ML IV SCH ×3 (06:20→23:18)
[2018-06-24 07:00] VITALS: BP 116/41
[2018-06-24] MEDS: ALBUTEROL SULFATE 2.5 MG/3 ML NEBU. INH PRN ×4 (07:10→20:33)
[2018-06-24] MEDS: SENNOSIDES 8.6 MG TABLET PO SCH ×2 (08:49→21:43)
[2018-06-24] MEDS: GABAPENTIN 300 MG CAPSULE. PO SCH ×2 (08:50→21:43)
[2018-06-24] MEDS: CETIRIZINE HCL 10 MG TABLET. PO SCH (08:50)
[2018-06-24] MEDS: ALLOPURINOL 100 MG TABLET. PO SCH (08:50)
[2018-06-24] MEDS: DOCUSATE SODIUM 100 MG CAPSULE. PO SCH ×2 (08:50→21:43)
[2018-06-24] MEDS: TAMSULOSIN 0.4 MG CAP.ER.24H. PO SCH (08:50)
[2018-06-24] MEDS: FUROSEMIDE 40 MG TABLET. PO SCH (08:50)
[2018-06-24] MEDS: LISINOPRIL 20 MG TABLET PO SCH (09:00)
[2018-06-24] MEDS: BACITRACIN/POLYMYXIN B TOPICAL OINT 15GM TUBE. TP SCH ×3 (09:00→21:00)
[2018-06-24] MEDS: METHYL SALICYLATE/MENTHOL TOPICAL OINTMENT 29GM TUBE. TP SCH ×3 (09:00→21:00)
[2018-06-24] MEDS: INSULIN LISPRO 300 UNITS/3 ML INSULN.PEN. SQ SCH ×6 (09:03→17:00)
[2018-06-24] MEDS: INSULIN GLARGINE 300 UNITS/3 ML INSULN.PEN. SQ SCH ×2 (09:04→21:56)
--- NOTE | 2018-06-24 10:14 | PDOC ---
PROGRESS NOTES Chief Complaint Chief Complaint 1. marked complicated acute cellulitis left lower leg, - off wound vac 2. Occlusive thrombus left femoral vein-possibly remnant of previous DVT on that same leg - on warf - INR pending 3. diabetes 2, mod control 4. hypertension 5. OBESITY, BMI 38 6. [employer] prisoner low security - release date July 2018 7. mod protein, caloric malnutrition 8. 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 ThromboCytopenia, platelets 136 with some hemoptysis 11. INmate 12,. 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 History of Present Illness History of Present Illness Has no complaints to me except for pain during dressing change Constipation Redness on the spot on the right foot is better since started on IV antibiotics cefazolin Zyvox by ID ESR only 55 with normal white count and no fevers Plan IV fentanyl during dressing change Lactulose when necessary for constipation per his request Wound care Follow ID recommendations Continue warfarin-goal INR 2-3 Watch out for further thrombocytopenia and hemoptysis/epistaxis He will need warfarin and not novel OAC as he would get clots recurring DVT PE and new pulmonary metastases from his RCC while on novel OAC-vascular surgery has recommended warfarin for life He is status post radiation for the isolated rib metastatic lesion by DR Tilley He follows up with lamar medrano in [facility] for his RCC for chemotherapy Vitals Vitals Vital Signs Date Time Temp Pulse Resp B/P (MAP) Pulse Ox O2 Delivery O2 Flow Rate FiO2 06/24/18 08:15 Room Air 06/24/18 07:11 96 06/24/18 07:00 98.2 87 17 116/41 (66) 98.2 Physical Exam Physical Exam GENERAL: Propped up in bed, alert, NAD HEENT: Pupils equally round. Normal conjunctivae. Oral cavity, pharynx pink and moist. No lesions. NECK: Supple. LUNGS: Clear to auscultation. HEART: S1 and S2. ABDOMEN: Obese, soft and nontender with bowel sounds present. EXTREMITIES: Edema 1+ lower extremities bilaterally. DP palpable. 2 large annular ulcers on anterior left leg with surrounding redness, warmth and blisters, He also has some mild redness and warmth to the dorsal aspect of the right foot. SKIN: Warm without rash. NEUROLOGIC: Alert and responds appropriately. RUE-PICC (06/08) without signs of any complications General: Alert, Oriented X3, Cooperative, No acute distress Lungs: Clear Abdomen: Normal bowel sounds, Soft, No tenderness, No hepatosplenomegaly, No masses Extremities: No clubbing, No cyanosis Skin: Other (F leg redness, 2 big raw skin or subcutaneous tissue exposed anterior lee, some induration proximal thigh anterior aspect, some leg edema, palpable [place] pedis but weak) Labs LABS Laboratory Tests Test 06/23/18 11:25 06/23/18 16:40 06/23/18 21:06 06/24/18 04:10 Glucose (Fingerstick) 165 mg/dL (70-99) 237 mg/dL (70-99) 157 mg/dL (70-99) Sodium Level 140 mmol/L (136-145) Potassium Level 4.8 mmol/L (3.5-5.1) Chloride Level 103 mmol/L (98-107) Carbon Dioxide Level 29 mmol/L (21-32) Anion Gap 8 (6-14) Blood Urea Nitrogen 18 mg/dL (8-26) Creatinine 1.1 mg/dL (0.7-1.3) Estimated GFR (Cockcroft-Gault) 68.8 Glucose Level 142 mg/dL (70-99) Calcium Level 9.4 mg/dL (8.5-10.1) Test 06/24/18 07:50 Glucose (Fingerstick) 150 mg/dL (70-99) Review of Systems Review of Systems A 14 point ROS was completed with the following noted as positive: Other systems reviewed and negative. \CONSTITUTIONAL: No fever or chills EYES: No recent changes SKIN: No rash or itching CARDIOVASCULAR: No chest pain, syncope, palpitations, or edema RESPIRATORY: No SOB or cough GASTROINTESTINAL: No nausea, vomiting or abdominal pain NEUROLOGICAL: No headaches or weakness ENDOCRINE: No cold or heat intolerance GENITOURINARY: No urgency or frequency of urination MUSCULOSKELETAL: No back pain or joint pain LYMPHATICS: No enlarged lymph nodes PSYCHIATRIC: No anxiety or depression Comment Review of Relevant I have reviewed the following items anjana (where applicable) has been applied. Labs Laboratory Tests Test 06/22/18 15:22 06/22/18 17:03 06/23/18 07:19 06/23/18 08:00 Erythrocyte Sedimentation Rate 55 (0-15) Prothrombin Time 19.4 SEC (11.7-14.0) 21.5 SEC (11.7-14.0) Prothromb Time International Ratio 1.7 (0.8-1.1) 1.9 (0.8-1.1) Glucose (Fingerstick) 125 mg/dL (70-99) 138 mg/dL (70-99) White Blood Count 5.3 x10^3/uL (4.0-11.0) Red Blood Count 2.95 x10^6/uL (4.30-5.70) Hemoglobin 8.8 g/dL (13.0-17.5) Hematocrit 27.7 % (39.0-53.0) Mean Corpuscular Volume 94 fL (79-100) Mean Corpuscular Hemoglobin 30 pg (25-35) Mean Corpuscular Hemoglobin Concent 32 g/dL (31-37) Red Cell Distribution Width 18.5 % (11.5-14.5) Platelet Count 131 x10^3/uL (140-400) Neutrophils (%) (Auto) 42 % (31-73) Lymphocytes (%) (Auto) 44 % (24-48) Monocytes (%) (Auto) 13 % (0-9) Eosinophils (%) (Auto) 1 % (0-3) Basophils (%) (Auto) 0 % (0-3) Neutrophils # (Auto) 2.2 x10^3uL (1.8-7.7) Lymphocytes # (Auto) 2.3 x10^3/uL (1.0-4.8) Monocytes # (Auto) 0.7 x10^3/uL (0.0-1.1) Eosinophils # (Auto) 0.0 x10^3/uL (0.0-0.7) Basophils # (Auto) 0.0 x10^3/uL (0.0-0.2) Sodium Level 141 mmol/L (136-145) Potassium Level 5.3 mmol/L (3.5-5.1) Chloride Level 103 mmol/L (98-107) Carbon Dioxide Level 30 mmol/L (21-32) Anion Gap 8 (6-14) Blood Urea Nitrogen 18 mg/dL (8-26) Creatinine 1.2 mg/dL (0.7-1.3) Estimated GFR (Cockcroft-Gault) 62.2 Glucose Level 148 mg/dL (70-99) Calcium Level 9.3 mg/dL (8.5-10.1) Phosphorus Level 3.8 mg/dL (2.6-4.7) Magnesium Level 1.8 mg/dL (1.8-2.4) Test 06/23/18 11:25 06/23/18 16:40 06/23/18 21:06 06/24/18 04:10 Glucose (Fingerstick) 165 mg/dL (70-99) 237 mg/dL (70-99) 157 mg/dL (70-99) Sodium Level 140 mmol/L (136-145) Potassium Level 4.8 mmol/L (3.5-5.1) Chloride Level 103 mmol/L (98-107) Carbon Dioxide Level 29 mmol/L (21-32) Anion Gap 8 (6-14) Blood Urea Nitrogen 18 mg/dL (8-26) Creatinine 1.1 mg/dL (0.7-1.3) Estimated GFR (Cockcroft-Gault) 68.8 Glucose Level 142 mg/dL (70-99) Calcium Level 9.4 mg/dL (8.5-10.1) Test 06/24/18 07:50 Glucose (Fingerstick) 150 mg/dL (70-99) Laboratory Tests Test 06/23/18 11:25 06/23/18 16:40 06/23/18 21:06 06/24/18 04:10 Glucose (Fingerstick) 165 mg/dL (70-99) 237 mg/dL (70-99) 157 mg/dL (70-99) Sodium Level 140 mmol/L (136-145) Potassium Level 4.8 mmol/L (3.5-5.1) Chloride Level 103 mmol/L (98-107) Carbon Dioxide Level 29 mmol/L (21-32) Anion Gap 8 (6-14) Blood Urea Nitrogen 18 mg/dL (8-26) Creatinine 1.1 mg/dL (0.7-1.3) Estimated GFR (Cockcroft-Gault) 68.8 Glucose Level 142 mg/dL (70-99) Calcium Level 9.4 mg/dL (8.5-10.1) Test 06/24/18 07:50 Glucose (Fingerstick) 150 mg/dL (70-99) Microbiology 06/22/18 Blood Culture - Preliminary, Resulted NO GROWTH AFTER 1 DAY Medications Current Medications Ondansetron HCl (Zofran) 4 mg PRN Q6HRS PRN IV NAUSEA/VOMITING; Start 06/22/18 at 14:15 Prochlorperazine Edisylate (Compazine) 10 mg PRN Q6HRS PRN IV NAUSEA/VOMITING, 2ND CHOICE; Start 06/22/18 at 14:15 Prochlorperazine (Compazine) 25 mg PRN Q12HR PRN RI NAUSEA/VOMITING; Start 02/28 at 14:15 Al Hydroxide/Mg Hydroxide (Mylanta Plus Xs) 30 ml PRN Q3HRS PRN PO HEARTBURN / GAS; Start 06/22/18 at 14:15 Calcium Carbonate/ Glycine (Tums) 500 mg PRN Q3HRS PRN PO UPSET STOMACH; Start 06/22/18 at 14:15 Zolpidem Tartrate (Ambien) 5 mg PRN QHS PRN PO INSOMNIA, MAY REPEAT IN 1HR; Start 06/22/18 at 14:15 Oxycodone HCl (Roxicodone) 5 mg PRN Q3HRS PRN PO BREAKTHROUGH PAIN Last administered on 06/24/18at 05:29; Start 06/22/18 at 14:15 Morphine Sulfate (Morphine Sulfate) 2 mg PRN Q2HR PRN IV PAIN; Start 06/22/18 at 14:15 Acetaminophen (Tylenol) 650 mg PRN Q6HRS PRN PO Headaches, Temp > 101.5F; Start 06/22/18 at 14:15 Docusate Sodium (Colace) 100 mg BID PO Last administered on 06/24/18at 08:50; Start 06/22/18 at 21:00 Heparin Sodium (Porcine) (Heparin Sodium) 5,000 unit Q8HRS SQ ; Start 06/22/18 at 22:00; Stop 06/22/18 at 22:00; Status DC Acetaminophen (Tylenol) 650 mg TID PRN PRN PO MILD PAIN; Start 06/22/18 at 14: 15; Stop 06/23/18 at 14:32; Status DC Albuterol Sulfate (Ventolin Neb Soln) 2.5 mg PRN Q6HRS PRN INH SHORTNESS OF BREATH Last administered on 06/24/18 07:10; Start 06/22/18 at 14:15 Allopurinol (Zyloprim) 100 mg DAILY PO Last administered on 06/24/18 08:50; Start 06/23/18 at 09:00 Atorvastatin Calcium (Lipitor) 40 mg QHS PO Last administered on 06/23/18 20: 58; Start 06/22/18 at 21:00 Bacitracin/ Polymyxin B Sulfate (Polysporin) 1 yanira TID TP ; Start 06/22/18 at 15 :00 Furosemide (Lasix) 20 mg DAILY PO ; Start 06/22/18 at 15:00; Stop 06/22/18 at 15 :00; Status DC Gabapentin (Neurontin) 900 mg HS PO Last administered on 06/23/18 20:58; Start 06/22/18 at 21:00 Acetaminophen/ Hydrocodone Bitart (Lortab 5/325) 1 tab PRN Q6HRS PRN PO MODERATE PAIN Last administered on 06/24/18 06:20; Start 06/22/18 at 14:15 Insulin Human Lispro (HumaLOG) 4 units TIDWMEALS SQ Last administered on 09:03; Start 06/22/18 at 17:00 Lisinopril (Prinivil) 20 mg DAILY PO Last administered on 06/23/18 08:40; Start 06/22/18 at 15:00 Tamsulosin HCl (Flomax) 0.4 mg DAILY PO Last administered on 06/24/18 08:50; Start 06/22/18 at 13:00 Gabapentin (Neurontin) 600 mg DAILY08 PO Last administered on 06/24/18 08:50; Start 06/23/18 at 08:00 Non-Formulary Medication (Metformin Hcl ) 1,000 mg BIDWMEALS PO ; Start at 17:00; Stop 06/22/18 at 17:00; Status DC Multi-Ingredient Ointment (Analgesic [place]) 1 yanira TID TP ; Start 06/22/18 at 15: 00; Status Cancel Sennosides (Senna) 17.2 mg BID PO Last administered on 4/14/19at 08:49; Start 06/22/18 at 21:00 Cetirizine HCl (ZyrTEC) 10 mg DAILY PO Last administered on 06/24/18 08:50; Start 06/22/18 at 15:00 Insulin Glargine (Lantus) 20 units BID SQ Last administered on 06/24/18at 09:04 ; Start 06/22/18 at 21:00 Non-Formulary Medication (Pioglitazone Hcl (Actos)) 1 tab DAILY PO ; Start 06/23 at 09:00; Stop 06/23/18 at 09:00; Status DC Warfarin Sodium (Coumadin Per Pharmacy) 1 each PRN DAILY PRN MC SEE COMMENTS Last administered on 06/23/18at 11:28; Start 06/22/18 at 14:15 Insulin Human Lispro (HumaLOG) 0-9 UNITS TIDWMEALS SQ Last administered on 06/24 09:03; Start 06/22/18 at 17:00 Dextrose (Dextrose 50%-Water Syringe) 12.5 gm PRN Q15MIN PRN IV SEE COMMENTS; Start 06/22/18 at 14:15 Furosemide (Lasix) 40 mg DAILY PO Last administered on 06/24/18at 08:50; Start 06/22/18 at 15:00 Multi-Ingredient Ointment (Analgesic [place]) 1 yanira TID TP ; Start 06/22/18 at 21: 00 Warfarin Sodium (Coumadin) 4 mg 1X WARF ONCE PO Last administered on at 17:57; Start 06/22/18 at 18:00; Stop 06/22/18 at 18:01; Status DC Sodium Polystyrene Sulfonate (Kayexalate) 15 gm 1X ONCE PO Last administered on 06/23/18at 11:49; Start 06/23/18 at 09:30; Stop 06/23/18 at 09:31; Status DC Warfarin Sodium (Coumadin) 4 mg 1X WARF ONCE PO Last administered on at 16:45; Start 06/23/18 at 16:00; Stop 06/23/18 at 16:01; Status DC Cefazolin Sodium 1 gm/Dextrose 50 ml @ 100 mls/hr Q8HRS IV Last administered on 06/24/18at 06:20; Start 06/23/18 at 14:00 Linezolid/Dextrose 300 ml @ 300 mls/hr Q12HR IV Last administered on at 08:53; Start 06/23/18 at 21:00 Active Scripts Active Bacitracin-Polymyxin Ointment (Bacitracin/Polymyxin B Sulfate) 28.35 Gm Oint...g. 1 Yanira TP TID MDD 1 Humalog (Insulin Lispro) 100 Unit/1 Ml Insuln.pen 4 Units SQ TIDWMEALS MDD 1 Gabapentin 300 Mg Capsule 900 Mg PO HS MDD 1 Reported Hydrocodone-Apap 5-325 (Hydrocodone Bit/Acetaminophen) 1 Tab Tablet 1 Tab PO PRN Q6HRS PRN Allopurinol 100 Mg Tablet 100 Mg PO 2TABS PO DAILY Muscle Rub Cream (Methyl Salicylate/Menthol) 113 Gm Cream..g. 1 Gm TP TID Proair Hfa Inhaler (Albuterol Sulfate) 8.5 Gm Hfa.aer.ad 1 Puff INH PRN Q6HRS PRN Zyrtec (Cetirizine Hcl) 10 Mg Tablet 1 Tab PO DAILY Atorvastatin Calcium 40 Mg Tablet 1 Tab PO QHS Metformin Hcl 1,000 Mg Tablet 1,000 Mg PO BIDWMEALS Gabapentin 600 Mg Tablet 600 Mg PO DAILY08 Flomax (Tamsulosin Hcl) 0.4 Mg Cap.er.24h 1 Cap PO DAILY Tylenol (Acetaminophen) 325 Mg Tablet 2 Tab PO TID PRN PRN Humulin R (Insulin Regular, Human) 100 Unit/1 Ml Vial 100 Unit IJ TID SLIDING SCALE Lisinopril 20 Mg Tablet 1 Tab PO DAILY Furosemide 20 Mg Tablet 1 Tab PO DAILY Actos (Pioglitazone Hcl) 45 Mg Tablet 1 Tab PO DAILY Novolin N (Nph, Human Insulin Isophane) 100 Unit/1 Ml Vial 20 Unit SQ BID Senna (Sennosides) 8.6 Mg Tablet 2 Mg PO BID Vitals/I & O Vital Sign - Last 24 Hours 06/23/18 06/23/18 06/23/18 06/23/18 11:00 11:56 12:24 14:42 Temp 97.7 97.7 Pulse 93 Resp 17 B/P (MAP) 115/49 (71) Pulse Ox 92 92 92 O2 Delivery Room Air Room Air Room Air Room Air 06/23/18 06/23/18 06/23/18 06/23/18 15:00 15:41 16:00 16:45 Temp 98.2 98.2 Pulse 85 Resp 18 B/P (MAP) 111/48 (69) Pulse Ox 92 92 92 O2 Delivery Room Air Room Air Room Air Room Air 06/23/18 06/23/18 06/23/18 06/23/18 18:12 19:20 20:00 20:50 Temp 98.2 98.2 Pulse 83 Resp 20 B/P (MAP) 101/40 (60) Pulse Ox 92 92 94 O2 Delivery Room Air Room Air Room Air Room Air 06/23/18 06/24/18 06/24/18 06/24/18 23:10 03:34 07:00 07:11 Temp 98.7 97.7 98.2 98.7 97.7 98.2 Pulse 88 82 87 Resp 18 18 17 B/P (MAP) 107/48 (67) 119/53 (75) 116/41 (66) Pulse Ox 92 91 92 96 O2 Delivery Room Air Room Air Room Air Room Air 06/24/18 08:15 O2 Delivery Room Air Intake and Output 06/23/18 06/23/18 06/24/18 15:00 23:00 07:00 Intake Total 460 ml 350 ml 720 ml Balance 460 ml 350 ml 720 ml SHAUN JOSE MD Jun 24, 2018 10:14
[2018-06-24] MEDS ORDERED: fentaNYL PF VIAL 100 MCG/2 ML VIAL IV PRN (10:15)
[2018-06-24 11:00] VITALS: BP 104/44
--- NOTE | 2018-06-24 11:32 | PDOC ---
Infectious Disease Note Subjective Subjective c/o pain though not as bad Denies worsening redness or swelling No F/C/S/N/V/D ROS ROS per HPI Vital Sign Vital Signs Vital Signs Date Time Temp Pulse Resp B/P (MAP) Pulse Ox O2 Delivery O2 Flow Rate FiO2 06/24/18 11:18 Room Air 06/24/18 07:11 96 06/24/18 07:00 98.2 87 17 116/41 (66) 98.2 Physical Exam PHYSICAL EXAM GENERAL: Sitting in the chair, legs elevated, appears comfortable HEENT: Pupils equally round. Normal conjunctivae. Oral cavity, pharynx pink and moist. No lesions. NECK: Supple. LUNGS: Clear to auscultation. HEART: S1 and S2. ABDOMEN: Obese, soft and nontender with bowel sounds present. EXTREMITIES: Edema 1+ lower extremities bilaterally. DP palpable. 2 large annular ulcers on anterior left leg with surrounding redness, warmth and few ruptured blisters, Mild redness and warmth to the dorsal aspect of the right foot - stable SKIN: Warm without rash. NEUROLOGIC: Alert and responds appropriately. RUE-PICC (06/08) without signs of any complications Labs Lab Laboratory Tests Test 06/23/18 16:40 06/23/18 21:06 06/24/18 04:10 06/24/18 07:50 Glucose (Fingerstick) 237 mg/dL (70-99) 157 mg/dL (70-99) 150 mg/dL (70-99) Sodium Level 140 mmol/L (136-145) Potassium Level 4.8 mmol/L (3.5-5.1) Chloride Level 103 mmol/L (98-107) Carbon Dioxide Level 29 mmol/L (21-32) Anion Gap 8 (6-14) Blood Urea Nitrogen 18 mg/dL (8-26) Creatinine 1.1 mg/dL (0.7-1.3) Estimated GFR (Cockcroft-Gault) 68.8 Glucose Level 142 mg/dL (70-99) Calcium Level 9.4 mg/dL (8.5-10.1) Micro Microbiology 06/22/18 Blood Culture - Preliminary, Resulted NO GROWTH AFTER 1 DAY Objective Assessment Cellulitis of left lower extremity and right foot Nonhealing wounds of left lower extremity s/p I and D taken down to fascia on . MSSA Diabetes with peripheral neuropathy. h/o peripheral vascular disease. History of deep venous thrombosis, on warfarin therapy. 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 -was on Sutent for treatment Solitary kidney. Incarceration h/o MRSA and enterococcus Plan Plan of Care Continue Cefazolin and Zyvox BC NGTD Wound care team consulted D/w nursing Patient seen and examined. Chart reviewed in detail. Case discussed with POLYMERIZATION HELPER. Agree with above plan. LEONOR RAMAN CERTIFIED CODING SPECIALIST Jun 24, 2018 11:32 VIPIN CHAN MD Jun 24, 2018 18:54
[2018-06-24] MEDS: LACTULOSE 20 GM/30 ML SOLUTION. PO PRN (14:37)
--- NOTE | 2018-06-24 14:39 | NUR ---
Pharmacy Warfarin Dosing Note S:Pharmacy consulted to assist with anticoagulation therapy started with target INR: 2 -3 O:HELADIO GAO is a 57 year old M with DVT/PE LABS: Last INR: 1.7 Last HGB: 8.8 Last HCT: 27.7 Last PLT: 131 Last dose of 4 mg given on 06/23/18 at 1645 Previous Regimen: Vitamin K given: N Drug Interaction Changes: Ongoing Drug Interactions: A:INR of 1.7 is below desired range. Target range for this patient is: 2 -3 P: Warfarin dose: 5 mg Today at 1600. Bridge Therapy: None Next INR due tomorrow. Pharmacy anticoagulation service will continue to follow. John Watson [facility], 06/24/18 [id number]
[2018-06-24 14:44] VITALS: BP 98/46
[2018-06-24] MEDS ORDERED: WARFARIN 5 MG TABLET. PO ONE (16:00)
[2018-06-24] MEDS ORDERED: ALTEPLASE 1MG SYRINGE. INT CAT PRN (16:45)
[2018-06-24 19:00] VITALS: BP 112/49
[2018-06-24] MEDS ORDERED: INSULIN LISPRO 300 UNITS/3 ML INSULN.PEN. SQ ONE (20:45)
[2018-06-24] MEDS: LACTOBACILLUS RHAMNOSUS GG 1 CAPSULE. PO SCH (21:43)
[2018-06-24] MEDS: ATORVASTATIN CALCIUM 40 MG TABLET. PO SCH (21:43)
[2018-06-24 23:00] VITALS: BP 118/53
[2018-06-25] VITALS (7 sets, daily range): BP systolic 97–116; BP diastolic 38–60
[2018-06-25] MEDS: ceFAZolin SODIUM 1 GM in IV DEXTROSE 5% 50 ML IV SCH ×3 (05:54→21:30)
[2018-06-25] MEDS: HYDROcodone/APAP 5/325MG 1 TAB TABLET PO PRN ×2 (05:54→12:13)
[2018-06-25] MEDS: SENNOSIDES 8.6 MG TABLET PO SCH ×2 (08:11→20:45)
[2018-06-25] MEDS: oxyCODONE IR 5 MG TABLET PO PRN ×4 (08:11→17:41)
[2018-06-25] MEDS: LACTULOSE 20 GM/30 ML SOLUTION. PO PRN (08:12)
[2018-06-25] MEDS: CETIRIZINE HCL 10 MG TABLET. PO SCH (08:12)
[2018-06-25] MEDS: MULTIVITAMIN with MINERAL TABLET. PO SCH (08:13)
[2018-06-25] MEDS: DOCUSATE SODIUM 100 MG CAPSULE. PO SCH ×2 (08:20→20:45)
[2018-06-25] MEDS: ASCORBIC ACID 500 MG TABLET PO SCH (08:20)
[2018-06-25] MEDS: LACTOBACILLUS RHAMNOSUS GG 1 CAPSULE. PO SCH (08:21)
[2018-06-25] MEDS: TAMSULOSIN 0.4 MG CAP.ER.24H. PO SCH (08:21)
[2018-06-25] MEDS: ALLOPURINOL 100 MG TABLET. PO SCH (08:21)
[2018-06-25] MEDS: FUROSEMIDE 40 MG TABLET. PO SCH (08:21)
[2018-06-25] MEDS: GABAPENTIN 300 MG CAPSULE. PO SCH ×2 (08:21→20:45)
[2018-06-25] MEDS: INSULIN GLARGINE 300 UNITS/3 ML INSULN.PEN. SQ SCH ×2 (08:30→20:54)
[2018-06-25] MEDS: INSULIN LISPRO 300 UNITS/3 ML INSULN.PEN. SQ SCH ×6 (08:32→17:48)
[2018-06-25 08:51] LABS: PROTHROMBIN TIME PATIENT 19.5 SEC (11.7-14.0)
[2018-06-25] MEDS: METHYL SALICYLATE/MENTHOL TOPICAL OINTMENT 29GM TUBE. TP SCH (08:52)
[2018-06-25] MEDS: BACITRACIN/POLYMYXIN B TOPICAL OINT 15GM TUBE. TP SCH (08:52)
[2018-06-25] MEDS: LISINOPRIL 20 MG TABLET PO SCH (09:24)
--- NOTE | 2018-06-25 09:40 | NUR ---
IP:Pt has a hx of mrsa + screen on 05/25/18 as well as + mrsa in a L leg wound 03/30/18. Pt to be in contact precautions until there are 2 negative screens 7 days apart and no open wounds.
--- NOTE | 2018-06-25 10:30 | NUR ---
Wound care: Patient seen per wound care. Patient is well known to us from the wound clinic and from previous admissions. Dressing removed and wound cleansed and assessed. Recommendations to continue with contact layer (to be placed on wound first), Aquacel Ag, ABD and kerlix. Dressing applied and patient tolerated well. A medi-band saw operator cake cutting G also applied. No other wounds noted upon complete head to toe assessment. Dressing change instructions left in room. Bed lowered and call light in reach. Will follow patient regarding wound care.
--- NOTE | 2018-06-25 10:31 | PDOC ---
Infectious Disease Note Subjective: Subjective Pt says feels ok Denies worsening redness or swelling No F/C/S/N/V/D Vital Signs: Vital Signs Vital Signs Date Time Temp Pulse Resp B/P (MAP) Pulse Ox O2 Delivery O2 Flow Rate FiO2 06/25/18 10:03 Room Air 06/25/18 08:32 76 106/46 (66) 06/25/18 07:00 97.5 16 96 97.5 Physical Exam: PHYSICAL EXAM GENERAL: Sitting in the chair, legs elevated, appears comfortable HEENT: Pupils equally round. Normal conjunctivae. Oral cavity, pharynx pink and moist. No lesions. NECK: Supple. LUNGS: Clear to auscultation. HEART: S1 and S2. ABDOMEN: Obese, soft and nontender with bowel sounds present. EXTREMITIES: Edema 1+ lower extremities bilaterally. DP palpable. 2 large annular ulcers on anterior left leg with surrounding redness, warmth and few ruptured blisters, Mild redness and warmth to the dorsal aspect of the right foot - stable SKIN: Warm without rash. NEUROLOGIC: Alert and responds appropriately. RUE-PICC (06/08) without signs of any complications Medications: Inpatient Meds: Current Medications Medications (Trade) Dose Ordered Sig/Katiana Start Time Stop Time Status Last Admin Dose Admin Acetaminophen (Tylenol) 650 mg TID PRN PRN 06/22/18 14:15 06/23/18 14:32 DC Acetaminophen/ Hydrocodone Bitart (Lortab 5/325) 1 tab PRN Q6HRS PRN 06/22/18 14:15 06/25/18 05:54 1 TAB Al Hydroxide/Mg Hydroxide (Mylanta Plus Xs) 30 ml PRN Q3HRS PRN 06/22/18 14:15 Albuterol Sulfate (Ventolin Neb Soln) 2.5 mg PRN Q6HRS PRN 06/22/18 14:15 06/24/18 20:33 2.5 MG Allopurinol (Zyloprim) 100 mg DAILY 06/23/18 09:00 06/25/18 08:21 100 MG Alteplase, Recombinant (Cathflo For Central Catheter Clearance) 1 mg 1X PRN PRN 06/24/18 16:45 06/25/18 06:37 1 MG Ascorbic Acid (Vitamin C) 500 mg DAILY 06/25/18 09:00 06/25/18 08:20 500 MG Atorvastatin Calcium (Lipitor) 40 mg QHS 06/22/18 21:00 06/24/18 21:43 40 MG Bacitracin/ Polymyxin B Sulfate (Polysporin) 1 ana TID 06/22/18 15:00 06/25/18 09:56 DC Calcium Carbonate/ Glycine (Tums) 500 mg PRN Q3HRS PRN 06/22/18 14:15 Cefazolin Sodium 1 gm/Dextrose 50 ml @ 100 mls/hr Q8HRS 06/23/18 14:00 06/25/18 05:54 100 MLS/HR Cetirizine HCl (ZyrTEC) 10 mg DAILY 06/22/18 15:00 06/25/18 08:12 10 MG Dextrose (Dextrose 50%-Water Syringe) 12.5 gm PRN Q15MIN PRN 06/22/18 14:15 Docusate Sodium (Colace) 100 mg BID 06/22/18 21:00 06/25/18 08:20 100 MG Fentanyl Citrate (Fentanyl 2ml Vial) 50 mcg PRN Q2HR PRN 06/24/18 10:15 Furosemide (Lasix) 40 mg DAILY 06/22/18 15:00 06/25/18 08:21 40 MG Gabapentin (Neurontin) 600 mg DAILY08 06/23/18 08:00 06/25/18 08:21 600 MG Heparin Sodium (Porcine) (Heparin Sodium) 5,000 unit Q8HRS 06/22/18 22:00 06/22/18 22:00 DC Insulin Glargine (Lantus) 20 units BID 06/22/18 21:00 06/25/18 08:30 20 UNITS Insulin Human Lispro (HumaLOG) 4 units 1X ONCE 06/24/18 20:45 06/24/18 20:46 DC 06/24/18 21:57 4 UNITS Lactobacillus Rhamnosus (Culturelle) 1 cap BID 06/24/18 21:00 06/25/18 08:21 1 CAP Lactulose (Lactulose) 20 gm PRN DAILY PRN 06/24/18 10:15 06/25/18 08:12 20 GM Linezolid/Dextrose 300 ml @ 300 mls/hr Q12HR 06/23/18 21:00 06/25/18 08:21 300 MLS/HR Lisinopril (Prinivil) 20 mg DAILY 06/22/18 15:00 06/23/18 08:40 20 MG Morphine Sulfate (Morphine Sulfate) 2 mg PRN Q2HR PRN 06/22/18 14:15 Multi-Ingredient Ointment (Analgesic [place]) 1 ana TID 06/22/18 21:00 06/25/18 09:56 DC Multivitamins (Thera M Plus) 1 tab DAILY 06/25/18 09:00 06/25/18 08:13 1 TAB Non-Formulary Medication (Metformin Hcl ) 1,000 mg BIDWMEALS 06/22/18 17:00 06/22/18 17:00 DC Non-Formulary Medication (Pioglitazone Hcl (Actos)) 1 tab DAILY 06/23/18 09:00 06/23/18 09:00 DC Ondansetron HCl (Zofran) 4 mg PRN Q6HRS PRN 06/22/18 14:15 Oxycodone HCl (Roxicodone) 5 mg PRN Q3HRS PRN 06/22/18 14:15 06/25/18 08:11 5 MG Prochlorperazine (Compazine) 25 mg PRN Q12HR PRN 06/22/18 14:15 Prochlorperazine Edisylate (Compazine) 10 mg PRN Q6HRS PRN 06/22/18 14:15 Sennosides (Senna) 17.2 mg BID 06/22/18 21:00 06/25/18 08:11 17.2 MG Sodium Polystyrene Sulfonate (Kayexalate) 15 gm 1X ONCE 06/23/18 09:30 06/23/18 09:31 DC 06/23/18 11:49 15 GM Tamsulosin HCl (Flomax) 0.4 mg DAILY 06/22/18 13:00 06/25/18 08:21 0.4 MG Warfarin Sodium (Coumadin Per Pharmacy) 1 each PRN DAILY PRN 06/22/18 14:15 06/24/18 14:36 1 EACH Warfarin Sodium (Coumadin) 5 mg 1X WARF ONCE 06/24/18 16:00 06/24/18 16:01 DC 06/24/18 17:29 5 MG Zolpidem Tartrate (Ambien) 5 mg PRN QHS PRN 06/22/18 14:15 Labs: Lab Laboratory Tests Test 06/24/18 11:50 06/24/18 12:27 06/24/18 16:44 06/24/18 20:20 Glucose (Fingerstick) 196 mg/dL (70-99) 177 mg/dL (70-99) 298 mg/dL (70-99) Prothrombin Time 20.0 SEC (11.7-14.0) Prothromb Time International Ratio 1.7 (0.8-1.1) Test 06/25/18 07:13 06/25/18 08:19 Glucose (Fingerstick) 163 mg/dL (70-99) Prothrombin Time 19.5 SEC (11.7-14.0) Prothromb Time International Ratio 1.7 (0.8-1.1) Objective: Assessment: Cellulitis of left lower extremity and right foot Nonhealing wounds of left lower extremity s/p I and D taken down to fascia on . MSSA Diabetes with peripheral neuropathy. h/o peripheral vascular disease. History of deep venous thrombosis, on warfarin therapy. 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 -was on Sutent for treatment Solitary kidney. Incarceration h/o MRSA and enterococcus Mild thrombocytopenia Plan: Plan of Care Continue Cefazolin and Zyvox BC NGTD Wound care team consulted D/w nursing Patient seen and examined. Chart reviewed in detail. Case discussed with CHROME TANNER. Agree with above plan. MARCELLE MARSHALL MD Jun 25, 2018 10:31
--- NOTE | 2018-06-25 11:33 | PDOC ---
PROGRESS NOTES Chief Complaint Chief Complaint 1. marked complicated acute cellulitis left lower leg, - off wound vac 2. Occlusive thrombus left femoral vein-possibly remnant of previous DVT on that same leg - on warf 3. diabetes 2, mod control 4. hypertension 5. OBESITY, BMI 38 6. [employer] prisoner low security - release date July 2018 7. mod protein, caloric malnutrition 8. 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 ThromboCytopenia, platelets 136 with some hemoptysis 11. INmate 12,. 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 History of Present Illness History of Present Illness asking for more pain meds Constipation Redness on the spot on the right foot is better since started on IV antibiotics cefazolin Zyvox by ID normal white count and no fevers Plan IV fentanyl during dressing change Lactulose when necessary for constipation per his request Wound care Follow ID recommendations, continue Linezolid and Cephazolin Continue warfarin-goal INR 2-3 Watch out for further thrombocytopenia and hemoptysis/epistaxis He will need warfarin and not novel OAC as he would get clots recurring DVT PE and new pulmonary metastases from his RCC while on novel OAC-vascular surgery has recommended warfarin for life He is status post radiation for the isolated rib metastatic lesion by DR Tilley He follows up with lamar medrano in [facility] for his RCC for chemotherapy Vitals Vitals Vital Signs Date Time Temp Pulse Resp B/P (MAP) Pulse Ox O2 Delivery O2 Flow Rate FiO2 06/25/18 11:22 Room Air 06/25/18 08:32 76 106/46 (66) 06/25/18 07:00 97.5 16 96 97.5 Physical Exam Physical Exam GENERAL: Sitting in the chair, legs elevated, appears comfortable HEENT: Pupils equally round. Normal conjunctivae. Oral cavity, pharynx pink and moist. No lesions. NECK: Supple. LUNGS: Clear to auscultation. HEART: S1 and S2. ABDOMEN: Obese, soft and nontender with bowel sounds present. EXTREMITIES: Edema 1+ lower extremities bilaterally. DP palpable. 2 large annular ulcers on anterior left leg with surrounding redness, warmth and few ruptured blisters, Mild redness and warmth to the dorsal aspect of the right foot - stable SKIN: Warm without rash. NEUROLOGIC: Alert and responds appropriately. RUE-PICC (06/08) without signs of any complications General: Alert, Oriented X3, Cooperative, No acute distress Lungs: Clear Abdomen: Normal bowel sounds, Soft, No tenderness, No hepatosplenomegaly, No masses Extremities: No clubbing, No cyanosis Skin: Other (F leg redness, 2 big raw skin or subcutaneous tissue exposed anterior lee, some induration proximal thigh anterior aspect, some leg edema, palpable [place] pedis but weak) Labs LABS Laboratory Tests Test 06/24/18 11:50 06/24/18 12:27 06/24/18 16:44 06/24/18 20:20 Glucose (Fingerstick) 196 mg/dL (70-99) 177 mg/dL (70-99) 298 mg/dL (70-99) Prothrombin Time 20.0 SEC (11.7-14.0) Prothromb Time International Ratio 1.7 (0.8-1.1) Test 06/25/18 07:13 06/25/18 08:19 06/25/18 10:52 Glucose (Fingerstick) 163 mg/dL (70-99) 191 mg/dL (70-99) Prothrombin Time 19.5 SEC (11.7-14.0) Prothromb Time International Ratio 1.7 (0.8-1.1) Comment Review of Relevant I have reviewed the following items anjana (where applicable) has been applied. Labs Laboratory Tests Test 06/23/18 16:40 06/23/18 21:06 06/24/18 04:10 06/24/18 07:50 Glucose (Fingerstick) 237 mg/dL (70-99) 157 mg/dL (70-99) 150 mg/dL (70-99) Sodium Level 140 mmol/L (136-145) Potassium Level 4.8 mmol/L (3.5-5.1) Chloride Level 103 mmol/L (98-107) Carbon Dioxide Level 29 mmol/L (21-32) Anion Gap 8 (6-14) Blood Urea Nitrogen 18 mg/dL (8-26) Creatinine 1.1 mg/dL (0.7-1.3) Estimated GFR (Cockcroft-Gault) 68.8 Glucose Level 142 mg/dL (70-99) Calcium Level 9.4 mg/dL (8.5-10.1) Test 06/24/18 11:50 06/24/18 12:27 06/24/18 16:44 06/24/18 20:20 Glucose (Fingerstick) 196 mg/dL (70-99) 177 mg/dL (70-99) 298 mg/dL (70-99) Prothrombin Time 20.0 SEC (11.7-14.0) Prothromb Time International Ratio 1.7 (0.8-1.1) Test 06/25/18 07:13 06/25/18 08:19 06/25/18 10:52 Glucose (Fingerstick) 163 mg/dL (70-99) 191 mg/dL (70-99) Prothrombin Time 19.5 SEC (11.7-14.0) Prothromb Time International Ratio 1.7 (0.8-1.1) Laboratory Tests Test 06/24/18 11:50 06/24/18 12:27 06/24/18 16:44 06/24/18 20:20 Glucose (Fingerstick) 196 mg/dL (70-99) 177 mg/dL (70-99) 298 mg/dL (70-99) Prothrombin Time 20.0 SEC (11.7-14.0) Prothromb Time International Ratio 1.7 (0.8-1.1) Test 06/25/18 07:13 06/25/18 08:19 06/25/18 10:52 Glucose (Fingerstick) 163 mg/dL (70-99) 191 mg/dL (70-99) Prothrombin Time 19.5 SEC (11.7-14.0) Prothromb Time International Ratio 1.7 (0.8-1.1) Microbiology 06/22/18 Blood Culture - Preliminary, Resulted NO GROWTH AFTER 2 DAYS Medications Current Medications Ondansetron HCl (Zofran) 4 mg PRN Q6HRS PRN IV NAUSEA/VOMITING (1st Choice); Start 06/22/18 at 14:15 Prochlorperazine Edisylate (Compazine) 10 mg PRN Q6HRS PRN IV NAUSEA/VOMITING, 2ND CHOICE; Start 06/22/18 at 14:15 Prochlorperazine (Compazine) 25 mg PRN Q12HR PRN KS NAUSEA/VOMITING; Start 02/28 at 14:15 Al Hydroxide/Mg Hydroxide (Mylanta Plus Xs) 30 ml PRN Q3HRS PRN PO HEARTBURN / GAS; Start 06/22/18 at 14:15 Calcium Carbonate/ Glycine (Tums) 500 mg PRN Q3HRS PRN PO UPSET STOMACH; Start 06/22/18 at 14:15 Zolpidem Tartrate (Ambien) 5 mg PRN QHS PRN PO INSOMNIA, MAY REPEAT IN 1HR; Start 06/22/18 at 14:15 Oxycodone HCl (Roxicodone) 5 mg PRN Q3HRS PRN PO BREAKTHROUGH PAIN Last administered on 06/25/18at 11:22; Start 06/22/18 at 14:15 Morphine Sulfate (Morphine Sulfate) 2 mg PRN Q2HR PRN IV PAIN MILD TO MOD; Start 06/22/18 at 14:15 Acetaminophen (Tylenol) 650 mg PRN Q6HRS PRN PO Headaches, Temp > 101.5F; Start 06/22/18 at 14:15 Docusate Sodium (Colace) 100 mg BID PO Last administered on 06/25/18at 08:20; Start 06/22/18 at 21:00 Heparin Sodium (Porcine) (Heparin Sodium) 5,000 unit Q8HRS SQ ; Start 06/22/18 at 22:00; Stop 06/22/18 at 22:00; Status DC Acetaminophen (Tylenol) 650 mg TID PRN PRN PO MILD PAIN; Start 06/22/18 at 14: 15; Stop 06/23/18 at 14:32; Status DC Albuterol Sulfate (Ventolin Neb Soln) 2.5 mg PRN Q6HRS PRN INH SHORTNESS OF BREATH Last administered on 06/24/18at 20:33; Start 06/22/18 at 14:15 Allopurinol (Zyloprim) 100 mg DAILY PO Last administered on 06/25/18at 08:21; Start 06/23/18 at 09:00 Atorvastatin Calcium (Lipitor) 40 mg QHS PO Last administered on 06/24/18at 21: 43; Start 06/22/18 at 21:00 Bacitracin/ Polymyxin B Sulfate (Polysporin) 1 yanira TID TP ; Start 06/22/18 at 15 :00; Stop 06/25/18 at 09:56; Status DC Furosemide (Lasix) 20 mg DAILY PO ; Start 06/22/18 at 15:00; Stop 06/22/18 at 15 :00; Status DC Gabapentin (Neurontin) 900 mg HS PO Last administered on 06/24/18 21:43; Start 06/22/18 at 21:00 Acetaminophen/ Hydrocodone Bitart (Lortab 5/325) 1 tab PRN Q6HRS PRN PO MODERATE PAIN Last administered on 06/25/18 05:54; Start 06/22/18 at 14:15 Insulin Human Lispro (HumaLOG) 4 units TIDWMEALS SQ Last administered on 11:25; Start 06/22/18 at 17:00 Lisinopril (Prinivil) 20 mg DAILY PO Last administered on 06/23/18 08:40; Start 06/22/18 at 15:00 Tamsulosin HCl (Flomax) 0.4 mg DAILY PO Last administered on 06/25/18 08:21; Start 06/22/18 at 13:00 Gabapentin (Neurontin) 600 mg DAILY08 PO Last administered on 06/25/18 08:21; Start 06/23/18 at 08:00 Non-Formulary Medication (Metformin Hcl ) 1,000 mg BIDWMEALS PO ; Start at 17:00; Stop 06/22/18 at 17:00; Status DC Multi-Ingredient Ointment (Analgesic Collyer) 1 yanira TID TP ; Start 06/22/18 at 15: 00; Status Cancel Sennosides (Senna) 17.2 mg BID PO Last administered on 06/25/18 08:11; Start 06/22/18 at 21:00 Cetirizine HCl (ZyrTEC) 10 mg DAILY PO Last administered on 06/25/18 08:12; Start 06/22/18 at 15:00 Insulin Glargine (Lantus) 20 units BID SQ Last administered on 06/25/18 08:30 ; Start 06/22/18 at 21:00 Non-Formulary Medication (Pioglitazone Hcl (Actos)) 1 tab DAILY PO ; Start 06/23 at 09:00; Stop 06/23/18 at 09:00; Status DC Warfarin Sodium (Coumadin Per Pharmacy) 1 each PRN DAILY PRN MC SEE COMMENTS Last administered on 06/24/18at 14:36; Start 06/22/18 at 14:15 Insulin Human Lispro (HumaLOG) 0-9 UNITS TIDWMEALS SQ Last administered on 06/25 11:25; Start 06/22/18 at 17:00 Dextrose (Dextrose 50%-Water Syringe) 12.5 gm PRN Q15MIN PRN IV SEE COMMENTS; Start 06/22/18 at 14:15 Furosemide (Lasix) 40 mg DAILY PO Last administered on 06/25/18at 08:21; Start 06/22/18 at 15:00 Multi-Ingredient Ointment (Analgesic Collyer) 1 yanira TID TP ; Start 06/22/18 at 21: 00; Stop 06/25/18 at 09:56; Status DC Warfarin Sodium (Coumadin) 4 mg 1X WARF ONCE PO Last administered on at 17:57; Start 06/22/18 at 18:00; Stop 06/22/18 at 18:01; Status DC Sodium Polystyrene Sulfonate (Kayexalate) 15 gm 1X ONCE PO Last administered on 06/23/18 11:49; Start 06/23/18 at 09:30; Stop 06/23/18 at 09:31; Status DC Warfarin Sodium (Coumadin) 4 mg 1X WARF ONCE PO Last administered on at 16:45; Start 06/23/18 at 16:00; Stop 06/23/18 at 16:01; Status DC Cefazolin Sodium 1 gm/Dextrose 50 ml @ 100 mls/hr Q8HRS IV Last administered on 06/25/18at 05:54; Start 06/23/18 at 14:00 Linezolid/Dextrose 300 ml @ 300 mls/hr Q12HR IV Last administered on 08:21; Start 06/23/18 at 21:00 Fentanyl Citrate (Fentanyl 2ml Vial) 50 mcg PRN Q2HR PRN IV PAIN SEVERE; Start 06/24/18 at 10:15 Lactulose (Lactulose) 20 gm PRN DAILY PRN PO CONSTIPATION Last administered on 06/25/18 08:12; Start 06/24/18 at 10:15 Lactobacillus Rhamnosus (Culturelle) 1 cap BID PO Last administered on 08:21; Start 06/24/18 at 21:00 Ascorbic Acid (Vitamin C) 500 mg DAILY PO Last administered on 06/25/18 08:20 ; Start 06/25/18 at 09:00 Multivitamins (Thera M Plus) 1 tab DAILY PO Last administered on 06/25/18 08: 13; Start 06/25/18 at 09:00 Warfarin Sodium (Coumadin) 5 mg 1X WARF ONCE PO Last administered on at 17:29; Start 06/24/18 at 16:00; Stop 06/24/18 at 16:01; Status DC Alteplase, Recombinant (Cathflo For Central Catheter Clearance) 1 mg 1X PRN PRN INT CAT SEE COMMENTS Last administered on 06/25/18at 06:37; Start 06/24/18 at 16:45 Insulin Human Lispro (HumaLOG) 4 units 1X ONCE SQ Last administered on at 21:57; Start 06/24/18 at 20:45; Stop 06/24/18 at 20:46; Status DC Active Scripts Active Bacitracin-Polymyxin Ointment (Bacitracin/Polymyxin B Sulfate) 28.35 Gm Oint...g. 1 Yanira TP TID MDD 1 Humalog (Insulin Lispro) 100 Unit/1 Ml Insuln.pen 4 Units SQ TIDWMEALS MDD 1 Gabapentin 300 Mg Capsule 900 Mg PO HS MDD 1 Reported Hydrocodone-Apap 5-325 (Hydrocodone Bit/Acetaminophen) 1 Tab Tablet 1 Tab PO PRN Q6HRS PRN Allopurinol 100 Mg Tablet 100 Mg PO 2TABS PO DAILY Muscle Rub Cream (Methyl Salicylate/Menthol) 113 Gm Cream..g. 1 Gm TP TID Proair Hfa Inhaler (Albuterol Sulfate) 8.5 Gm Hfa.aer.ad 1 Puff INH PRN Q6HRS PRN Zyrtec (Cetirizine Hcl) 10 Mg Tablet 1 Tab PO DAILY Atorvastatin Calcium 40 Mg Tablet 1 Tab PO QHS Metformin Hcl 1,000 Mg Tablet 1,000 Mg PO BIDWMEALS Gabapentin 600 Mg Tablet 600 Mg PO DAILY08 Flomax (Tamsulosin Hcl) 0.4 Mg Cap.er.24h 1 Cap PO DAILY Tylenol (Acetaminophen) 325 Mg Tablet 2 Tab PO TID PRN PRN Humulin R (Insulin Regular, Human) 100 Unit/1 Ml Vial 100 Unit IJ TID SLIDING SCALE Lisinopril 20 Mg Tablet 1 Tab PO DAILY Furosemide 20 Mg Tablet 1 Tab PO DAILY Actos (Pioglitazone Hcl) 45 Mg Tablet 1 Tab PO DAILY Novolin N (Nph, Human Insulin Isophane) 100 Unit/1 Ml Vial 20 Unit SQ BID Senna (Sennosides) 8.6 Mg Tablet 2 Mg PO BID Vitals/I & O Vital Sign - Last 24 Hours 06/24/18 06/24/18 06/24/18 06/24/18 12:02 13:05 14:37 14:44 Temp 97.7 97.7 Pulse 77 Resp 18 B/P (MAP) 98/46 (63) Pulse Ox 96 96 96 O2 Delivery Room Air Room Air Room Air Room Air 06/24/18 06/24/18 06/24/18 06/24/18 15:52 17:29 18:30 19:00 Temp 98.2 98.2 Pulse 92 Resp 20 B/P (MAP) 112/49 (70) Pulse Ox 96 96 98 O2 Delivery Room Air Room Air Room Air 06/24/18 06/24/18 06/24/18 06/25/18 20:00 20:36 23:00 03:00 Temp 98.1 98.1 98.1 98.1 Pulse 79 71 Resp 18 18 B/P (MAP) 118/53 (74) 116/60 (78) Pulse Ox 98 96 O2 Delivery Room Air Room Air Room Air Room Air 06/25/18 06/25/18 06/25/18 06/25/18 07:00 07:30 08:11 08:32 Temp 97.5 97.5 Pulse 72 76 Resp 16 B/P (MAP) 99/42 (61) 106/46 (66) Pulse Ox 96 O2 Delivery Room Air Room Air Room Air 06/25/18 06/25/18 10:03 11:22 O2 Delivery Room Air Room Air Intake and Output 06/24/18 06/24/18 06/25/18 15:00 23:00 07:00 Intake Total 340 ml 300 ml Output Total 1300 ml 300 ml Balance 340 ml -1300 ml 0 ml HETAL SURESH MD Jun 25, 2018 11:33
--- NOTE | 2018-06-25 12:07 | NUR ---
Pharmacy Warfarin Dosing Note S: Pharmacy consulted to assist with anticoagulation therapy O: HELADIO GAO is a 57 year old M with DVT/PE LABS: Last INR: 1.7 Last HGB: 8.8 Last HCT: 27.7 Last PLT: 131 Last dose of 5 mg given on 06/24/18 at 1729 Vitamin K given: N Ongoing Drug Interactions: ALLOPURINOL A:INR of 1.7 is below desired range. Target range for this patient is: 2 -3 P: Warfarin dose: 6 mg Today at 1600 Bridge Therapy: None Next INR due tomorrow Pharmacy anticoagulation service will continue to follow. Nancie Oro RPH, 06/25/18 [id number]
[2018-06-25] MEDS ORDERED: WARFARIN 3 MG TABLET. PO ONE (16:00)
[2018-06-25] MEDS: ALBUTEROL SULFATE 2.5 MG/3 ML NEBU. INH PRN (16:09)
[2018-06-25] MEDS: ATORVASTATIN CALCIUM 40 MG TABLET. PO SCH (20:45)
[2018-06-25] MEDS: IPRATRPIUM/ALBUTEROL 0.5/2.5MG 3 ML NEBU. NEB SCH (20:58)
[2018-06-26 03:00] VITALS: BP 105/46
[2018-06-26] MEDS: HYDROcodone/APAP 5/325MG 1 TAB TABLET PO PRN ×3 (04:11→20:01)
[2018-06-26] MEDS: ceFAZolin SODIUM 1 GM in IV DEXTROSE 5% 50 ML IV SCH ×3 (06:05→21:25)
[2018-06-26 07:00] VITALS: BP 104/42
[2018-06-26 07:16] LABS: PROTHROMBIN TIME PATIENT 21.6 SEC (11.7-14.0)
--- NOTE | 2018-06-26 07:30 | NUR ---
Wound Care Pt seen for wound care follow up with Dr. Allan. Left leg dressings removed, wounds assessed, leg appears much improved since Monday visit in the wound clinic, with less edema and blisters almost completely resolved. Dr. Allan ordered for anti-phospholipid panel, Hydrofera blue and Profore lite 3 layer compression wrap to LLE. Dressings and wrap applied from base of toes to just below knee, pt tolerated well. Pt educated on leg elevation and to have RN call WCRNs if wrap becomes too tight or painful. Will f/u with pt later in the week to re-evaluate wounds.
[2018-06-26] MEDS: IPRATRPIUM/ALBUTEROL 0.5/2.5MG 3 ML NEBU. NEB SCH ×4 (07:42→20:24)
[2018-06-26] MEDS: LISINOPRIL 20 MG TABLET PO SCH (09:00)
[2018-06-26] MEDS: FUROSEMIDE 40 MG TABLET. PO SCH (09:00)
--- NOTE | 2018-06-26 09:05 | PDOC2 ---
CONSULT Date of Consult Date of Consult DATE: 06/26/18 TIME: 08:48 Reason for Consult Reason for Consult: Left leg ulcerations Referring Physician Referring Physician: Dr. Mike Identification/Chief Complaint Chief Complaint Patient recently admitted to the hospital for lower extremity cellulitis. This appears associated with long-standing ulcerations to the proximal aspect of the left lower leg. He reports improved redness and discomfort. Source Source: Chart review, Patient History of Present Illness Reason for Visit: This is a 57-year-old patient known to the wound clinic and undergoing treatment for left lower extremity ulcerations. He has been seen by my partner, Dr. Ireland. He has had variable improvement with standard venous ulceration therapies and deep debridement. He has an interesting history of significant thrombotic episodes starting in 1988. He is on long-term oral anticoagulant therapy with variable compliance. In 2011 he developed renal cell carcinoma and is a stage IV patient at this time. He has received IV antibiotic therapy with significant improvement in lower extremity redness. He continues complaining of local ulcer pain and this is been a prominent part of the ulcer presentation since the beginning. Past Medical History Cardiovascular: HTN CENTRAL NERVOUS SYSTEM: Periperal neuropathy GI: No pertinent hx Heme/Onc: No pertinent hx Musculoskeletal: Stiffness Infectious disease: No pertinent hx, Other Renal/: No pertinent hx Endocrine: Diabetes Past Surgical History Past Surgical History: Hernia Repair, Other Family History Family History: Hypertension Social History No ALCOHOL: none Drugs: None Current Problem List Problem List Cellulitis left lower extremity Diabetes DVT and chronic oral anticoagulation therapy Stage IV renal cell carcinoma Current Medications Current Medications Current Medications Ondansetron HCl (Zofran) 4 mg PRN Q6HRS PRN IV NAUSEA/VOMITING (1st Choice); Start 06/22/18 at 14:15 Prochlorperazine Edisylate (Compazine) 10 mg PRN Q6HRS PRN IV NAUSEA/VOMITING, 2ND CHOICE; Start 06/22/18 at 14:15 Prochlorperazine (Compazine) 25 mg PRN Q12HR PRN ME NAUSEA/VOMITING; Start 02/28 at 14:15 Al Hydroxide/Mg Hydroxide (Mylanta Plus Xs) 30 ml PRN Q3HRS PRN PO HEARTBURN / GAS; Start 06/22/18 at 14:15 Calcium Carbonate/ Glycine (Tums) 500 mg PRN Q3HRS PRN PO UPSET STOMACH; Start 06/22/18 at 14:15 Zolpidem Tartrate (Ambien) 5 mg PRN QHS PRN PO INSOMNIA, MAY REPEAT IN 1HR; Start 06/22/18 at 14:15 Oxycodone HCl (Roxicodone) 5 mg PRN Q3HRS PRN PO BREAKTHROUGH PAIN Last administered on 06/25/18at 17:41; Start 06/22/18 at 14:15 Morphine Sulfate (Morphine Sulfate) 2 mg PRN Q2HR PRN IV PAIN MILD TO MOD; Start 06/22/18 at 14:15 Acetaminophen (Tylenol) 650 mg PRN Q6HRS PRN PO Headaches, Temp > 101.5F; Start 06/22/18 at 14:15 Docusate Sodium (Colace) 100 mg BID PO Last administered on 06/25/18at 20:45; Start 06/22/18 at 21:00 Heparin Sodium (Porcine) (Heparin Sodium) 5,000 unit Q8HRS SQ ; Start 06/22/18 at 22:00; Stop 06/22/18 at 22:00; Status DC Acetaminophen (Tylenol) 650 mg TID PRN PRN PO MILD PAIN; Start 06/22/18 at 14: 15; Stop 06/23/18 at 14:32; Status DC Albuterol Sulfate (Ventolin Neb Soln) 2.5 mg PRN Q6HRS PRN INH SHORTNESS OF BREATH Last administered on 06/25/18at 16:09; Start 06/22/18 at 14:15 Allopurinol (Zyloprim) 100 mg DAILY PO Last administered on 06/25/18at 08:21; Start 06/23/18 at 09:00 Atorvastatin Calcium (Lipitor) 40 mg QHS PO Last administered on 06/25/18at 20: 45; Start 06/22/18 at 21:00 Bacitracin/ Polymyxin B Sulfate (Polysporin) 1 yanira TID TP ; Start 06/22/18 at 15 :00; Stop 06/25/18 at 09:56; Status DC Furosemide (Lasix) 20 mg DAILY PO ; Start 06/22/18 at 15:00; Stop 06/22/18 at 15 :00; Status DC Gabapentin (Neurontin) 900 mg HS PO Last administered on 06/25/18at 20:45; Start 06/22/18 at 21:00 Acetaminophen/ Hydrocodone Bitart (Lortab 5/325) 1 tab PRN Q6HRS PRN PO MODERATE PAIN Last administered on 06/26/18 04:11; Start 06/22/18 at 14:15 Insulin Human Lispro (HumaLOG) 4 units TIDWMEALS SQ Last administered on 17:48; Start 06/22/18 at 17:00 Lisinopril (Prinivil) 20 mg DAILY PO Last administered on 06/23/18 08:40; Start 06/22/18 at 15:00 Tamsulosin HCl (Flomax) 0.4 mg DAILY PO Last administered on 06/25/18 08:21; Start 06/22/18 at 13:00 Gabapentin (Neurontin) 600 mg DAILY08 PO Last administered on 06/25/18 08:21; Start 06/23/18 at 08:00 Non-Formulary Medication (Metformin Hcl ) 1,000 mg BIDWMEALS PO ; Start at 17:00; Stop 06/22/18 at 17:00; Status DC Multi-Ingredient Ointment (Analgesic [place]) 1 yanira TID TP ; Start 06/22/18 at 15: 00; Status Cancel Sennosides (Senna) 17.2 mg BID PO Last administered on 06/25/18 20:45; Start 06/22/18 at 21:00 Cetirizine HCl (ZyrTEC) 10 mg DAILY PO Last administered on 06/25/18 08:12; Start 06/22/18 at 15:00 Insulin Glargine (Lantus) 20 units BID SQ Last administered on 06/25/18 20:54 ; Start 06/22/18 at 21:00 Non-Formulary Medication (Pioglitazone Hcl (Actos)) 1 tab DAILY PO ; Start 06/23 at 09:00; Stop 06/23/18 at 09:00; Status DC Warfarin Sodium (Coumadin Per Pharmacy) 1 each PRN DAILY PRN MC SEE COMMENTS Last administered on 06/25/18 12:04; Start 06/22/18 at 14:15 Insulin Human Lispro (HumaLOG) 0-9 UNITS TIDWMEALS SQ Last administered on 4/15 /19at 11:25; Start 06/22/18 at 17:00 Dextrose (Dextrose 50%-Water Syringe) 12.5 gm PRN Q15MIN PRN IV SEE COMMENTS; Start 06/22/18 at 14:15 Furosemide (Lasix) 40 mg DAILY PO Last administered on 06/25/18at 08:21; Start 06/22/18 at 15:00 Multi-Ingredient Ointment (Analgesic [place]) 1 yanira TID TP ; Start 06/22/18 at 21: 00; Stop 06/25/18 at 09:56; Status DC Warfarin Sodium (Coumadin) 4 mg 1X WARF ONCE PO Last administered on at 17:57; Start 06/22/18 at 18:00; Stop 06/22/18 at 18:01; Status DC Sodium Polystyrene Sulfonate (Kayexalate) 15 gm 1X ONCE PO Last administered on 06/23/18 11:49; Start 06/23/18 at 09:30; Stop 06/23/18 at 09:31; Status DC Warfarin Sodium (Coumadin) 4 mg 1X WARF ONCE PO Last administered on at 16:45; Start 06/23/18 at 16:00; Stop 06/23/18 at 16:01; Status DC Cefazolin Sodium 1 gm/Dextrose 50 ml @ 100 mls/hr Q8HRS IV Last administered on 06/26/18at 06:05; Start 06/23/18 at 14:00 Linezolid/Dextrose 300 ml @ 300 mls/hr Q12HR IV Last administered on at 20:44; Start 06/23/18 at 21:00 Fentanyl Citrate (Fentanyl 2ml Vial) 50 mcg PRN Q2HR PRN IV PAIN SEVERE; Start 06/24/18 at 10:15 Lactulose (Lactulose) 20 gm PRN DAILY PRN PO CONSTIPATION Last administered on 06/25/18 08:12; Start 06/24/18 at 10:15 Lactobacillus Rhamnosus (Culturelle) 1 cap BID PO Last administered on at 08:21; Start 06/24/18 at 21:00; Stop 06/25/18 at 12:09; Status DC Ascorbic Acid (Vitamin C) 500 mg DAILY PO Last administered on 06/25/18at 08:20 ; Start 06/25/18 at 09:00 Multivitamins (Thera M Plus) 1 tab DAILY PO Last administered on 06/25/18at 08: 13; Start 06/25/18 at 09:00 Warfarin Sodium (Coumadin) 5 mg 1X WARF ONCE PO Last administered on at 17:29; Start 06/24/18 at 16:00; Stop 06/24/18 at 16:01; Status DC Alteplase, Recombinant (Cathflo For Central Catheter Clearance) 1 mg 1X PRN PRN INT CAT SEE COMMENTS Last administered on 06/25/18at 06:37; Start 06/24/18 at 16:45 Insulin Human Lispro (HumaLOG) 4 units 1X ONCE SQ Last administered on at 21:57; Start 06/24/18 at 20:45; Stop 06/24/18 at 20:46; Status DC Warfarin Sodium (Coumadin) 6 mg 1X WARF ONCE PO Last administered on at 17:43; Start 06/25/18 at 16:00; Stop 06/25/18 at 16:01; Status DC Albuterol/ Ipratropium (Duoneb) 3 ml RTQID NEB Last administered on 06/26/18at 07:42; Start 06/25/18 at 20:00 Active Scripts Active Bacitracin-Polymyxin Ointment (Bacitracin/Polymyxin B Sulfate) 28.35 Gm Oint...g. 1 Yanira TP TID MDD 1 Humalog (Insulin Lispro) 100 Unit/1 Ml Insuln.pen 4 Units SQ TIDWMEALS MDD 1 Gabapentin 300 Mg Capsule 900 Mg PO HS MDD 1 Reported Hydrocodone-Apap 5-325 (Hydrocodone Bit/Acetaminophen) 1 Tab Tablet 1 Tab PO PRN Q6HRS PRN Allopurinol 100 Mg Tablet 100 Mg PO 2TABS PO DAILY Muscle Rub Cream (Methyl Salicylate/Menthol) 113 Gm Cream..g. 1 Gm TP TID Proair Hfa Inhaler (Albuterol Sulfate) 8.5 Gm Hfa.aer.ad 1 Puff INH PRN Q6HRS PRN Zyrtec (Cetirizine Hcl) 10 Mg Tablet 1 Tab PO DAILY Atorvastatin Calcium 40 Mg Tablet 1 Tab PO QHS Metformin Hcl 1,000 Mg Tablet 1,000 Mg PO BIDWMEALS Gabapentin 600 Mg Tablet 600 Mg PO DAILY08 Flomax (Tamsulosin Hcl) 0.4 Mg Cap.er.24h 1 Cap PO DAILY Tylenol (Acetaminophen) 325 Mg Tablet 2 Tab PO TID PRN PRN Humulin R (Insulin Regular, Human) 100 Unit/1 Ml Vial 100 Unit IJ TID SLIDING SCALE Lisinopril 20 Mg Tablet 1 Tab PO DAILY Furosemide 20 Mg Tablet 1 Tab PO DAILY Actos (Pioglitazone Hcl) 45 Mg Tablet 1 Tab PO DAILY Novolin N (Nph, Human Insulin Isophane) 100 Unit/1 Ml Vial 20 Unit SQ BID Senna (Sennosides) 8.6 Mg Tablet 2 Mg PO BID Allergies Allergies: Coded Allergies: I S O L A T I O N *CONTACT* (Verified Allergy, Unknown, 04/05/18) mrsa ibuprofen (Verified Adverse Reaction, Intermediate, 05/25/18) Warfarin ROS Review of System Negative except as reported below General: YES: Malaise Hematological and Lymphatic: YES: Bleeding Problems (associated with anticoagulation) Cardiovascular: yes Edema (chronic lower extremity edema) Skin: Yes Other (chronic left lower extremity ulcerations) Physical Exam General: Alert, Oriented X3, Cooperative HEENT: Atraumatic, PERRLA, EOMI Lungs: Normal air movement, Other (clear breath sounds anteriorly) Heart: Regular rate Abdomen: Soft, No tenderness (anterior abdomen is nontender) Extremities: No clubbing, Normal pulses (Quant of flow is 1.26), Other (trauma hemosiderin staining to the anterior aspect left lower extremity) Skin: Other (2 large anterior left lower extremity ulcerations with demonstration of fat exposure are identified. There is minimal undermining noted. The periwound is largely intact and less than 20% slough is demonstrated at the ulcer basis. No unusual odors evident. Drainage is moderate.) Neuro: Normal speech Psych/Mental Status: Mental status NL, Mood NL MUSCULOSKELETAL: Not examined Vitals VITALS Vital Signs Date Time Temp Pulse Resp B/P (MAP) Pulse Ox O2 Delivery O2 Flow Rate FiO2 06/26/18 07:42 97 Nasal Cannula 2.5 06/26/18 07:00 96.3 78 18 104/42 (62) 96.3 Labs Labs Laboratory Tests Test 06/24/18 11:50 06/24/18 12:27 06/24/18 16:44 06/24/18 20:20 Glucose (Fingerstick) 196 mg/dL (70-99) 177 mg/dL (70-99) 298 mg/dL (70-99) Prothrombin Time 20.0 SEC (11.7-14.0) Prothromb Time International Ratio 1.7 (0.8-1.1) Test 06/25/18 07:13 06/25/18 08:19 06/25/18 10:52 06/25/18 16:45 Glucose (Fingerstick) 163 mg/dL (70-99) 191 mg/dL (70-99) 140 mg/dL (70-99) Prothrombin Time 19.5 SEC (11.7-14.0) Prothromb Time International Ratio 1.7 (0.8-1.1) Test 06/25/18 20:39 06/26/18 06:35 Glucose (Fingerstick) 232 mg/dL (70-99) Prothrombin Time 21.6 SEC (11.7-14.0) Prothromb Time International Ratio 1.9 (0.8-1.1) Laboratory Tests Test 06/25/18 10:52 06/25/18 16:45 06/25/18 20:39 06/26/18 06:35 Glucose (Fingerstick) 191 mg/dL (70-99) 140 mg/dL (70-99) 232 mg/dL (70-99) Prothrombin Time 21.6 SEC (11.7-14.0) Prothromb Time International Ratio 1.9 (0.8-1.1) Assessment/Plan Assessment/Plan Chronic atypical left lower extremity ulcerations with evidence of fat layer exposure Certainly venous insufficiency ulcerations are possibility but these ulcers feature very atypical characteristics I would give strong consideration for antiphospholipid syndrome ulcerations. I cannot ascertain whether an APL panel has been ordered and we'll go ahead and proceed with that. While this will not give significant change or direction in the therapy of these ulcers in may help direct alternative therapies, however limited. Dressings ordered we'll put on a very mild layered compression since both infection and chronic DVT are currently under treatment. We'll be happy to follow the patient up in clinic. KENNY HOYT DO Jun 26, 2018 09:05
[2018-06-26] MEDS: ASCORBIC ACID 500 MG TABLET PO SCH (09:50)
[2018-06-26] MEDS: oxyCODONE IR 5 MG TABLET PO PRN ×2 (09:51→18:35)
[2018-06-26] MEDS: GABAPENTIN 300 MG CAPSULE. PO SCH ×2 (09:52→21:18)
[2018-06-26] MEDS: DOCUSATE SODIUM 100 MG CAPSULE. PO SCH ×2 (09:52→21:18)
[2018-06-26] MEDS: ALLOPURINOL 100 MG TABLET. PO SCH (09:52)
[2018-06-26] MEDS: MULTIVITAMIN with MINERAL TABLET. PO SCH (09:52)
[2018-06-26] MEDS: CETIRIZINE HCL 10 MG TABLET. PO SCH (09:53)
[2018-06-26] MEDS: SENNOSIDES 8.6 MG TABLET PO SCH ×2 (09:53→21:18)
[2018-06-26] MEDS: TAMSULOSIN 0.4 MG CAP.ER.24H. PO SCH (09:53)
[2018-06-26] MEDS: INSULIN GLARGINE 300 UNITS/3 ML INSULN.PEN. SQ SCH ×2 (10:02→21:32)
[2018-06-26] MEDS: INSULIN LISPRO 300 UNITS/3 ML INSULN.PEN. SQ SCH ×6 (10:03→18:39)
--- NOTE | 2018-06-26 10:16 | PDOC ---
Infectious Disease Note Subjective: Subjective Pt says feels tired Denies worsening redness or swelling No F/C/S/N/V/D ROS: ROS Negative except for above. Vital Signs: Vital Signs Vital Signs Date Time Temp Pulse Resp B/P (MAP) Pulse Ox O2 Delivery O2 Flow Rate FiO2 06/26/18 09:51 Room Air 06/26/18 07:42 97 2.5 06/26/18 07:00 96.3 78 18 104/42 (62) 96.3 Physical Exam: PHYSICAL EXAM GENERAL: Sitting in the chair, legs elevated, appears comfortable HEENT: Pupils equally round. Normal conjunctivae. Oral cavity, pharynx pink and moist. No lesions. NECK: Supple. LUNGS: Clear to auscultation. HEART: S1 and S2. ABDOMEN: Obese, soft and nontender with bowel sounds present. EXTREMITIES: Edema 1+ lower extremities bilaterally. DP palpable. 2 large annular ulcers on anterior left leg with surrounding redness, warmth and few ruptured blisters, Mild redness and warmth to the dorsal aspect of the right foot - stable SKIN: Warm without rash. NEUROLOGIC: Alert and responds appropriately. RUE-PICC (06/08) without signs of any complications Medications: Inpatient Meds: Current Medications Medications (Trade) Dose Ordered Sig/Katiana Start Time Stop Time Status Last Admin Dose Admin Acetaminophen (Tylenol) 650 mg TID PRN PRN 06/22/18 14:15 06/23/18 14:32 DC Acetaminophen/ Hydrocodone Bitart (Lortab 5/325) 1 tab PRN Q6HRS PRN 06/22/18 14:15 06/26/18 04:11 1 TAB Al Hydroxide/Mg Hydroxide (Mylanta Plus Xs) 30 ml PRN Q3HRS PRN 06/22/18 14:15 Albuterol Sulfate (Ventolin Neb Soln) 2.5 mg PRN Q6HRS PRN 06/22/18 14:15 06/25/18 16:09 2.5 MG Albuterol/ Ipratropium (Duoneb) 3 ml RTQID 06/25/18 20:00 06/26/18 07:42 3 ML Allopurinol (Zyloprim) 100 mg DAILY 06/23/18 09:00 06/26/18 09:52 100 MG Alteplase, Recombinant (Cathflo For Central Catheter Clearance) 1 mg 1X PRN PRN 06/24/18 16:45 06/25/18 06:37 1 MG Ascorbic Acid (Vitamin C) 500 mg DAILY 06/25/18 09:00 06/26/18 09:50 500 MG Atorvastatin Calcium (Lipitor) 40 mg QHS 06/22/18 21:00 06/25/18 20:45 40 MG Bacitracin/ Polymyxin B Sulfate (Polysporin) 1 ana TID 06/22/18 15:00 06/25/18 09:56 DC Calcium Carbonate/ Glycine (Tums) 500 mg PRN Q3HRS PRN 06/22/18 14:15 Cefazolin Sodium 1 gm/Dextrose 50 ml @ 100 mls/hr Q8HRS 06/23/18 14:00 06/26/18 06:05 100 MLS/HR Cetirizine HCl (ZyrTEC) 10 mg DAILY 06/22/18 15:00 06/26/18 09:53 10 MG Dextrose (Dextrose 50%-Water Syringe) 12.5 gm PRN Q15MIN PRN 06/22/18 14:15 Docusate Sodium (Colace) 100 mg BID 06/22/18 21:00 06/26/18 09:52 100 MG Fentanyl Citrate (Fentanyl 2ml Vial) 50 mcg PRN Q2HR PRN 06/24/18 10:15 Furosemide (Lasix) 40 mg DAILY 06/22/18 15:00 06/25/18 08:21 40 MG Gabapentin (Neurontin) 600 mg DAILY08 06/23/18 08:00 06/26/18 09:52 600 MG Heparin Sodium (Porcine) (Heparin Sodium) 5,000 unit Q8HRS 06/22/18 22:00 06/22/18 22:00 DC Insulin Glargine (Lantus) 20 units BID 06/22/18 21:00 06/26/18 10:02 20 UNITS Insulin Human Lispro (HumaLOG) 4 units 1X ONCE 06/24/18 20:45 06/24/18 20:46 DC 06/24/18 21:57 4 UNITS Lactobacillus Rhamnosus (Culturelle) 1 cap BID 06/24/18 21:00 06/25/18 12:09 DC 06/25/18 08:21 1 CAP Lactulose (Lactulose) 20 gm PRN DAILY PRN 06/24/18 10:15 06/25/18 08:12 20 GM Linezolid/Dextrose 300 ml @ 300 mls/hr Q12HR 06/23/18 21:00 06/26/18 09:55 300 MLS/HR Lisinopril (Prinivil) 20 mg DAILY 06/22/18 15:00 06/23/18 08:40 20 MG Morphine Sulfate (Morphine Sulfate) 2 mg PRN Q2HR PRN 06/22/18 14:15 Multi-Ingredient Ointment (Analgesic [place]) 1 ana TID 06/22/18 21:00 06/25/18 09:56 DC Multivitamins (Thera M Plus) 1 tab DAILY 06/25/18 09:00 06/26/18 09:52 1 TAB Non-Formulary Medication (Metformin Hcl ) 1,000 mg BIDWMEALS 06/22/18 17:00 06/22/18 17:00 DC Non-Formulary Medication (Pioglitazone Hcl (Actos)) 1 tab DAILY 06/23/18 09:00 06/23/18 09:00 DC Ondansetron HCl (Zofran) 4 mg PRN Q6HRS PRN 06/22/18 14:15 Oxycodone HCl (Roxicodone) 5 mg PRN Q3HRS PRN 06/22/18 14:15 06/26/18 09:51 5 MG Prochlorperazine (Compazine) 25 mg PRN Q12HR PRN 06/22/18 14:15 Prochlorperazine Edisylate (Compazine) 10 mg PRN Q6HRS PRN 06/22/18 14:15 Sennosides (Senna) 17.2 mg BID 06/22/18 21:00 06/26/18 09:53 17.2 MG Sodium Polystyrene Sulfonate (Kayexalate) 15 gm 1X ONCE 06/23/18 09:30 06/23/18 09:31 DC 06/23/18 11:49 15 GM Tamsulosin HCl (Flomax) 0.4 mg DAILY 06/22/18 13:00 06/26/18 09:53 0.4 MG Warfarin Sodium (Coumadin Per Pharmacy) 1 each PRN DAILY PRN 06/22/18 14:15 06/25/18 12:04 1 EACH Warfarin Sodium (Coumadin) 6 mg 1X WARF ONCE 06/25/18 16:00 06/25/18 16:01 DC 06/25/18 17:43 6 MG Zolpidem Tartrate (Ambien) 5 mg PRN QHS PRN 06/22/18 14:15 Labs: Lab Laboratory Tests Test 06/25/18 10:52 06/25/18 16:45 06/25/18 20:39 06/26/18 06:35 Glucose (Fingerstick) 191 mg/dL (70-99) 140 mg/dL (70-99) 232 mg/dL (70-99) Prothrombin Time 21.6 SEC (11.7-14.0) Prothromb Time International Ratio 1.9 (0.8-1.1) Objective: Assessment: Cellulitis of left lower extremity and right foot ,slight improvement Nonhealing wounds of left lower extremity s/p I and D taken down to fascia on . MSSA Diabetes with peripheral neuropathy. h/o peripheral vascular disease. History of deep venous thrombosis, on warfarin therapy. 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 -was on Sutent for treatment Solitary kidney. Incarceration h/o MRSA and enterococcus Mild thrombocytopenia Plan: Plan of Care Continue Cefazolin and Zyvox BC NGTD Wound care team consulted D/w nursing MARCELLE MARSHALL MD Jun 26, 2018 10:16
--- NOTE | 2018-06-26 10:50 | NUR ---
Pharmacy Warfarin Dosing Note S: Pharmacy consulted to assist with anticoagulation therapy O: HELADIO GAO is a 57 year old M with hx of DVT LABS: Last INR: 1.9 Last HGB: 8.8 Last HCT: 27.7 Last PLT: 131 Last dose of 6 mg given on 06/25/18 at 1743 Vitamin K given: N Ongoing Drug Interactions: ALLOPURINOL A:INR of 1.9 is below desired range. Target range for this patient is: 2 -3 P: Warfarin dose: 5 mg Today at 1600 Bridge Therapy: None Next INR due TOMORROW Pharmacy anticoagulation service will continue to follow. Nancie Oro RPH, 06/26/18 [id number]
[2018-06-26 11:00] VITALS: BP 113/49
[2018-06-26 15:00] VITALS: BP 107/45
[2018-06-26] MEDS ORDERED: WARFARIN 5 MG TABLET. PO ONE (16:00)
--- NOTE | 2018-06-26 16:38 | PDOC ---
PROGRESS NOTES Chief Complaint Chief Complaint 1. marked complicated acute cellulitis left lower leg, - off wound vac 2. Occlusive thrombus left femoral vein-possibly remnant of previous DVT on that same leg - on warf 3. diabetes 2, mod control 4. hypertension 5. OBESITY, BMI 38 6. [employer] prisoner low security - release date July 2018 7. mod protein, caloric malnutrition 8. 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 Thrombocytopenia, platelets 136 with some hemoptysis 11. Inmate 12,. 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- s/p radiaton tx History of Present Illness History of Present Illness Plan IV fentanyl during dressing change Lactulose when necessary for constipation per his request Wound care Follow ID recommendations, continue Linezolid and Cephazolin Continue warfarin-goal INR 2-3 Watch out for further thrombocytopenia and hemoptysis/epistaxis He will need warfarin and not novel OAC as he would get clots recurring DVT PE and new pulmonary metastases from his RCC while on novel OAC-vascular surgery has recommended warfarin for life He is status post radiation for the isolated rib metastatic lesion by DR Tilley He follows up with hem/onc in [facility] for his RCC for chemotherapy Vitals Vitals Vital Signs Date Time Temp Pulse Resp B/P (MAP) Pulse Ox O2 Delivery O2 Flow Rate FiO2 06/26/18 15:00 98.1 80 18 107/45 (65) 91 Room Air 98.1 06/26/18 07:42 2.5 Physical Exam Physical Exam GENERAL: Sitting in the chair, legs elevated, appears comfortable HEENT: Pupils equally round. Normal conjunctivae. Oral cavity, pharynx pink and moist. No lesions. NECK: Supple. LUNGS: Clear to auscultation. HEART: S1 and S2. ABDOMEN: Obese, soft and nontender with bowel sounds present. EXTREMITIES: Edema 1+ lower extremities bilaterally. DP palpable. 2 large annular ulcers on anterior left leg with surrounding redness, warmth and few ruptured blisters, Mild redness and warmth to the dorsal aspect of the right foot - stable SKIN: Warm without rash. NEUROLOGIC: Alert and responds appropriately. RUE-PICC (06/08) without signs of any complications General: Alert, Oriented X3, Cooperative Heart: Regular rate Lungs: Clear Abdomen: Soft, No tenderness (anterior abdomen is nontender) Extremities: No clubbing, Normal pulses (Quant of flow is 1.26), Other (trauma hemosiderin staining to the anterior aspect left lower extremity) Skin: Other (2 large anterior left lower extremity ulcerations with demonstration of fat exposure are identified. There is minimal undermining noted. The periwound is largely intact and less than 20% slough is demonstrated at the ulcer basis. No unusual odors evident. Drainage is moderate.) Labs LABS Laboratory Tests Test 06/25/18 16:45 06/25/18 20:39 06/26/18 06:35 06/26/18 07:57 Glucose (Fingerstick) 140 mg/dL (70-99) 232 mg/dL (70-99) 151 mg/dL (70-99) Prothrombin Time 21.6 SEC (11.7-14.0) Prothromb Time International Ratio 1.9 (0.8-1.1) Test 06/26/18 11:46 Glucose (Fingerstick) 240 mg/dL (70-99) Comment Review of Relevant I have reviewed the following items anjana (where applicable) has been applied. Labs Laboratory Tests Test 06/24/18 16:44 06/24/18 20:20 06/25/18 07:13 06/25/18 08:19 Glucose (Fingerstick) 177 mg/dL (70-99) 298 mg/dL (70-99) 163 mg/dL (70-99) Prothrombin Time 19.5 SEC (11.7-14.0) Prothromb Time International Ratio 1.7 (0.8-1.1) Test 06/25/18 10:52 06/25/18 16:45 06/25/18 20:39 06/26/18 06:35 Glucose (Fingerstick) 191 mg/dL (70-99) 140 mg/dL (70-99) 232 mg/dL (70-99) Prothrombin Time 21.6 SEC (11.7-14.0) Prothromb Time International Ratio 1.9 (0.8-1.1) Test 06/26/18 07:57 06/26/18 11:46 Glucose (Fingerstick) 151 mg/dL (70-99) 240 mg/dL (70-99) Laboratory Tests Test 06/25/18 16:45 06/25/18 20:39 06/26/18 06:35 06/26/18 07:57 Glucose (Fingerstick) 140 mg/dL (70-99) 232 mg/dL (70-99) 151 mg/dL (70-99) Prothrombin Time 21.6 SEC (11.7-14.0) Prothromb Time International Ratio 1.9 (0.8-1.1) Test 06/26/18 11:46 Glucose (Fingerstick) 240 mg/dL (70-99) Microbiology 06/22/18 Blood Culture - Preliminary, Resulted NO GROWTH AFTER 4 DAYS Medications Current Medications Ondansetron HCl (Zofran) 4 mg PRN Q6HRS PRN IV NAUSEA/VOMITING (1st Choice); Start 06/22/18 at 14:15 Prochlorperazine Edisylate (Compazine) 10 mg PRN Q6HRS PRN IV NAUSEA/VOMITING, 2ND CHOICE; Start 06/22/18 at 14:15 Prochlorperazine (Compazine) 25 mg PRN Q12HR PRN CA NAUSEA/VOMITING; Start 02/28 at 14:15 Al Hydroxide/Mg Hydroxide (Mylanta Plus Xs) 30 ml PRN Q3HRS PRN PO HEARTBURN / GAS; Start 06/22/18 at 14:15 Calcium Carbonate/ Glycine (Tums) 500 mg PRN Q3HRS PRN PO UPSET STOMACH; Start 06/22/18 at 14:15 Zolpidem Tartrate (Ambien) 5 mg PRN QHS PRN PO INSOMNIA, MAY REPEAT IN 1HR; Start 06/22/18 at 14:15 Oxycodone HCl (Roxicodone) 5 mg PRN Q3HRS PRN PO BREAKTHROUGH PAIN Last administered on 06/26/18at 09:51; Start 06/22/18 at 14:15 Morphine Sulfate (Morphine Sulfate) 2 mg PRN Q2HR PRN IV PAIN MILD TO MOD; Start 06/22/18 at 14:15 Acetaminophen (Tylenol) 650 mg PRN Q6HRS PRN PO Headaches, Temp > 101.5F; Start 06/22/18 at 14:15 Docusate Sodium (Colace) 100 mg BID PO Last administered on 06/26/18at 09:52; Start 06/22/18 at 21:00 Heparin Sodium (Porcine) (Heparin Sodium) 5,000 unit Q8HRS SQ ; Start 06/22/18 at 22:00; Stop 06/22/18 at 22:00; Status DC Acetaminophen (Tylenol) 650 mg TID PRN PRN PO MILD PAIN; Start 06/22/18 at 14: 15; Stop 06/23/18 at 14:32; Status DC Albuterol Sulfate (Ventolin Neb Soln) 2.5 mg PRN Q6HRS PRN INH SHORTNESS OF BREATH Last administered on 06/25/18 16:09; Start 06/22/18 at 14:15 Allopurinol (Zyloprim) 100 mg DAILY PO Last administered on 06/26/18 09:52; Start 06/23/18 at 09:00 Atorvastatin Calcium (Lipitor) 40 mg QHS PO Last administered on 06/25/18 20: 45; Start 06/22/18 at 21:00 Bacitracin/ Polymyxin B Sulfate (Polysporin) 1 ana TID TP ; Start 06/22/18 at 15 :00; Stop 06/25/18 at 09:56; Status DC Furosemide (Lasix) 20 mg DAILY PO ; Start 06/22/18 at 15:00; Stop 06/22/18 at 15 :00; Status DC Gabapentin (Neurontin) 900 mg HS PO Last administered on 06/25/18 20:45; Start 06/22/18 at 21:00 Acetaminophen/ Hydrocodone Bitart (Lortab 5/325) 1 tab PRN Q6HRS PRN PO MODERATE PAIN Last administered on 06/26/18 13:04; Start 06/22/18 at 14:15 Insulin Human Lispro (HumaLOG) 4 units TIDWMEALS SQ Last administered on 13:11; Start 06/22/18 at 17:00 Lisinopril (Prinivil) 20 mg DAILY PO Last administered on 06/23/18 08:40; Start 06/22/18 at 15:00 Tamsulosin HCl (Flomax) 0.4 mg DAILY PO Last administered on 06/26/18 09:53; Start 06/22/18 at 13:00 Gabapentin (Neurontin) 600 mg DAILY08 PO Last administered on 06/26/18 09:52; Start 06/23/18 at 08:00 Non-Formulary Medication (Metformin Hcl ) 1,000 mg BIDWMEALS PO ; Start at 17:00; Stop 06/22/18 at 17:00; Status DC Multi-Ingredient Ointment (Analgesic [place]) 1 ana TID TP ; Start 06/22/18 at 15: 00; Status Cancel Sennosides (Senna) 17.2 mg BID PO Last administered on 06/26/18 09:53; Start 06/22/18 at 21:00 Cetirizine HCl (ZyrTEC) 10 mg DAILY PO Last administered on 06/26/18 09:53; Start 06/22/18 at 15:00 Insulin Glargine (Lantus) 20 units BID SQ Last administered on 06/26/18at 10:02 ; Start 06/22/18 at 21:00 Non-Formulary Medication (Pioglitazone Hcl (Actos)) 1 tab DAILY PO ; Start 06/23 at 09:00; Stop 06/23/18 at 09:00; Status DC Warfarin Sodium (Coumadin Per Pharmacy) 1 each PRN DAILY PRN MC SEE COMMENTS Last administered on 06/26/18at 10:48; Start 06/22/18 at 14:15 Insulin Human Lispro (HumaLOG) 0-9 UNITS TIDWMEALS SQ Last administered on 06/26at 13:13; Start 06/22/18 at 17:00 Dextrose (Dextrose 50%-Water Syringe) 12.5 gm PRN Q15MIN PRN IV SEE COMMENTS; Start 06/22/18 at 14:15 Furosemide (Lasix) 40 mg DAILY PO Last administered on 06/25/18at 08:21; Start 06/22/18 at 15:00 Multi-Ingredient Ointment (Analgesic [place]) 1 ana TID TP ; Start 06/22/18 at 21: 00; Stop 06/25/18 at 09:56; Status DC Warfarin Sodium (Coumadin) 4 mg 1X WARF ONCE PO Last administered on at 17:57; Start 06/22/18 at 18:00; Stop 06/22/18 at 18:01; Status DC Sodium Polystyrene Sulfonate (Kayexalate) 15 gm 1X ONCE PO Last administered on 06/23/18at 11:49; Start 06/23/18 at 09:30; Stop 06/23/18 at 09:31; Status DC Warfarin Sodium (Coumadin) 4 mg 1X WARF ONCE PO Last administered on 16:45; Start 06/23/18 at 16:00; Stop 06/23/18 at 16:01; Status DC Cefazolin Sodium 1 gm/Dextrose 50 ml @ 100 mls/hr Q8HRS IV Last administered on 06/26/18 14:09; Start 06/23/18 at 14:00 Linezolid/Dextrose 300 ml @ 300 mls/hr Q12HR IV Last administered on 09:55; Start 06/23/18 at 21:00 Fentanyl Citrate (Fentanyl 2ml Vial) 50 mcg PRN Q2HR PRN IV PAIN SEVERE; Start 06/24/18 at 10:15 Lactulose (Lactulose) 20 gm PRN DAILY PRN PO CONSTIPATION Last administered on 06/25/18 08:12; Start 06/24/18 at 10:15 Lactobacillus Rhamnosus (Culturelle) 1 cap BID PO Last administered on 08:21; Start 06/24/18 at 21:00; Stop 06/25/18 at 12:09; Status DC Ascorbic Acid (Vitamin C) 500 mg DAILY PO Last administered on 06/26/18 09:50 ; Start 06/25/18 at 09:00 Multivitamins (Thera M Plus) 1 tab DAILY PO Last administered on 06/26/18 09: 52; Start 06/25/18 at 09:00 Warfarin Sodium (Coumadin) 5 mg 1X WARF ONCE PO Last administered on 17:29; Start 06/24/18 at 16:00; Stop 06/24/18 at 16:01; Status DC Alteplase, Recombinant (Cathflo For Central Catheter Clearance) 1 mg 1X PRN PRN INT CAT SEE COMMENTS Last administered on 06/25/18 06:37; Start 06/24/18 at 16:45 Insulin Human Lispro (HumaLOG) 4 units 1X ONCE SQ Last administered on 21:57; Start 06/24/18 at 20:45; Stop 06/24/18 at 20:46; Status DC Warfarin Sodium (Coumadin) 6 mg 1X WARF ONCE PO Last administered on at 17:43; Start 06/25/18 at 16:00; Stop 06/25/18 at 16:01; Status DC Albuterol/ Ipratropium (Duoneb) 3 ml RTQID NEB Last administered on 06/26/18at 12:07; Start 06/25/18 at 20:00 Warfarin Sodium (Coumadin) 5 mg 1X WARF ONCE PO ; Start 06/26/18 at 16:00; Stop 06/26/18 at 16:01; Status DC Active Scripts Active Bacitracin-Polymyxin Ointment (Bacitracin/Polymyxin B Sulfate) 28.35 Gm Oint...g. 1 Ana TP TID MDD 1 Humalog (Insulin Lispro) 100 Unit/1 Ml Insuln.pen 4 Units SQ TIDWMEALS MDD 1 Gabapentin 300 Mg Capsule 900 Mg PO HS MDD 1 Reported Hydrocodone-Apap 5-325 (Hydrocodone Bit/Acetaminophen) 1 Tab Tablet 1 Tab PO PRN Q6HRS PRN Allopurinol 100 Mg Tablet 100 Mg PO 2TABS PO DAILY Muscle Rub Cream (Methyl Salicylate/Menthol) 113 Gm Cream..g. 1 Gm TP TID Proair Hfa Inhaler (Albuterol Sulfate) 8.5 Gm Hfa.aer.ad 1 Puff INH PRN Q6HRS PRN Zyrtec (Cetirizine Hcl) 10 Mg Tablet 1 Tab PO DAILY Atorvastatin Calcium 40 Mg Tablet 1 Tab PO QHS Metformin Hcl 1,000 Mg Tablet 1,000 Mg PO BIDWMEALS Gabapentin 600 Mg Tablet 600 Mg PO DAILY08 Flomax (Tamsulosin Hcl) 0.4 Mg Cap.er.24h 1 Cap PO DAILY Tylenol (Acetaminophen) 325 Mg Tablet 2 Tab PO TID PRN PRN Humulin R (Insulin Regular, Human) 100 Unit/1 Ml Vial 100 Unit IJ TID SLIDING SCALE Lisinopril 20 Mg Tablet 1 Tab PO DAILY Furosemide 20 Mg Tablet 1 Tab PO DAILY Actos (Pioglitazone Hcl) 45 Mg Tablet 1 Tab PO DAILY Novolin N (Nph, Human Insulin Isophane) 100 Unit/1 Ml Vial 20 Unit SQ BID Senna (Sennosides) 8.6 Mg Tablet 2 Mg PO BID Vitals/I & O Vital Sign - Last 24 Hours 06/25/18 06/25/18 06/25/18 4/15/19 17:41 19:00 19:55 21:01 Temp 98.8 98.8 Pulse 87 Resp 18 B/P (MAP) 113/46 (68) Pulse Ox 94 O2 Delivery Room Air Room Air Room Air Nasal Cannula O2 Flow Rate 2.5 06/25/18 06/26/18 06/26/18 06/26/18 23:00 03:00 04:11 05:10 Temp 99.0 98.8 99.0 98.8 Pulse 90 71 Resp 16 18 18 B/P (MAP) 97/38 (57) 105/46 (65) Pulse Ox 94 94 94 94 O2 Delivery Room Air Room Air Room Air O2 Flow Rate 2.5 2.5 06/26/18 06/26/18 06/26/18 06/26/18 07:00 07:42 09:00 09:51 Temp 96.3 96.3 Pulse 78 79 Resp 18 B/P (MAP) 104/42 (62) 113/49 Pulse Ox 93 97 O2 Delivery Room Air Nasal Cannula Room Air O2 Flow Rate 2.5 06/26/18 06/26/18 06/26/18 06/26/18 11:00 11:00 12:08 13:04 Temp 98.0 98.0 Pulse 79 Resp 18 B/P (MAP) 113/49 (70) Pulse Ox 91 90 O2 Delivery Room Air Room Air Room Air Room Air 06/26/18 06/26/18 14:09 15:00 Temp 98.1 98.1 Pulse 80 Resp 18 B/P (MAP) 107/45 (65) Pulse Ox 91 O2 Delivery Room Air Room Air Intake and Output 06/25/18 06/25/18 06/26/18 14:59 22:59 06:59 Intake Total 200 ml Output Total 1100 ml 900 ml Balance -900 ml -900 ml HETAL SURESH MD Jun 26, 2018 16:38
[2018-06-26 19:00] VITALS: BP 123/48
[2018-06-26] MEDS: ATORVASTATIN CALCIUM 40 MG TABLET. PO SCH (21:19)
[2018-06-26 23:00] VITALS: BP 100/42
[2018-06-27 03:00] VITALS: BP 106/47
--- NOTE | 2018-06-27 05:20 | NUR ---
Unable to draw blood from PICC. Flushes easily. Earlier blood was being returned. Cath Parminder ordered.
[2018-06-27] MEDS: ceFAZolin SODIUM 1 GM in IV DEXTROSE 5% 50 ML IV SCH (05:55)
--- NOTE | 2018-06-27 05:56 | NUR ---
Ancef dose finished, cath flow dwelling in red port of PICC.
[2018-06-27] MEDS ORDERED: ALTEPLASE 1MG SYRINGE. INT CAT ONE (06:00)
[2018-06-27 07:00] VITALS: BP 116/45
[2018-06-27] MEDS: IPRATRPIUM/ALBUTEROL 0.5/2.5MG 3 ML NEBU. NEB SCH ×2 (07:44→11:54)
[2018-06-27] MEDS: INSULIN LISPRO 300 UNITS/3 ML INSULN.PEN. SQ SCH ×4 (08:00→13:18)
--- NOTE | 2018-06-27 08:34 | PDOC ---
Infectious Disease Note Subjective: Subjective Pt says feels tired Denies worsening redness or swelling No F/C/S/N/V/D ROS: ROS Negative except for above. Vital Signs: Vital Signs Vital Signs Date Time Temp Pulse Resp B/P (MAP) Pulse Ox O2 Delivery O2 Flow Rate FiO2 06/27/18 07:44 93 Room Air 06/27/18 07:00 97.8 78 18 116/45 (68) 97.8 06/26/18 18:35 2.5 Physical Exam: PHYSICAL EXAM GENERAL: Sitting in the chair, legs elevated, appears comfortable HEENT: Pupils equally round. Normal conjunctivae. Oral cavity, pharynx pink and moist. No lesions. NECK: Supple. LUNGS: Clear to auscultation. HEART: S1 and S2. ABDOMEN: Obese, soft and nontender with bowel sounds present. EXTREMITIES: Edema 1+ lower extremities bilaterally. DP palpable. 2 large annular ulcers on anterior left leg with surrounding redness, warmth and few ruptured blisters, Mild redness and warmth to the dorsal aspect of the right foot - stable SKIN: Warm without rash. NEUROLOGIC: Alert and responds appropriately. RUE-PICC (06/08) without signs of any complications Medications: Inpatient Meds: Current Medications Medications (Trade) Dose Ordered Sig/Katiana Start Time Stop Time Status Last Admin Dose Admin Acetaminophen (Tylenol) 650 mg TID PRN PRN 06/22/18 14:15 06/23/18 14:32 DC Acetaminophen/ Hydrocodone Bitart (Lortab 5/325) 1 tab PRN Q6HRS PRN 06/22/18 14:15 06/26/18 20:01 1 TAB Al Hydroxide/Mg Hydroxide (Mylanta Plus Xs) 30 ml PRN Q3HRS PRN 06/22/18 14:15 Albuterol Sulfate (Ventolin Neb Soln) 2.5 mg PRN Q6HRS PRN 06/22/18 14:15 06/25/18 16:09 2.5 MG Albuterol/ Ipratropium (Duoneb) 3 ml RTQID 06/25/18 20:00 06/27/18 07:44 3 ML Allopurinol (Zyloprim) 100 mg DAILY 06/23/18 09:00 06/26/18 09:52 100 MG Alteplase, Recombinant (Cathflo For Central Catheter Clearance) 1 mg 1X ONCE 06/27/18 06:00 06/27/18 06:01 DC 06/27/18 05:55 1 MG Ascorbic Acid (Vitamin C) 500 mg DAILY 06/25/18 09:00 06/26/18 09:50 500 MG Atorvastatin Calcium (Lipitor) 40 mg QHS 06/22/18 21:00 06/26/18 21:19 40 MG Bacitracin/ Polymyxin B Sulfate (Polysporin) 1 ana TID 06/22/18 15:00 06/25/18 09:56 DC Calcium Carbonate/ Glycine (Tums) 500 mg PRN Q3HRS PRN 06/22/18 14:15 Cefazolin Sodium 1 gm/Dextrose 50 ml @ 100 mls/hr Q8HRS 06/23/18 14:00 06/27/18 05:55 100 MLS/HR Cetirizine HCl (ZyrTEC) 10 mg DAILY 06/22/18 15:00 06/26/18 09:53 10 MG Dextrose (Dextrose 50%-Water Syringe) 12.5 gm PRN Q15MIN PRN 06/22/18 14:15 Docusate Sodium (Colace) 100 mg BID 06/22/18 21:00 06/26/18 21:18 100 MG Fentanyl Citrate (Fentanyl 2ml Vial) 50 mcg PRN Q2HR PRN 06/24/18 10:15 Furosemide (Lasix) 40 mg DAILY 06/22/18 15:00 06/25/18 08:21 40 MG Gabapentin (Neurontin) 600 mg DAILY08 06/23/18 08:00 06/26/18 09:52 600 MG Heparin Sodium (Porcine) (Heparin Sodium) 5,000 unit Q8HRS 06/22/18 22:00 06/22/18 22:00 DC Insulin Glargine (Lantus) 20 units BID 06/22/18 21:00 06/26/18 21:32 20 UNITS Insulin Human Lispro (HumaLOG) 4 units 1X ONCE 06/24/18 20:45 06/24/18 20:46 DC 06/24/18 21:57 4 UNITS Lactobacillus Rhamnosus (Culturelle) 1 cap BID 06/24/18 21:00 06/25/18 12:09 DC 06/25/18 08:21 1 CAP Lactulose (Lactulose) 20 gm PRN DAILY PRN 06/24/18 10:15 06/25/18 08:12 20 GM Linezolid/Dextrose 300 ml @ 300 mls/hr Q12HR 06/23/18 21:00 06/26/18 22:18 300 MLS/HR Lisinopril (Prinivil) 20 mg DAILY 06/22/18 15:00 06/23/18 08:40 20 MG Morphine Sulfate (Morphine Sulfate) 2 mg PRN Q2HR PRN 06/22/18 14:15 Multi-Ingredient Ointment (Analgesic [place]) 1 ana TID 06/22/18 21:00 06/25/18 09:56 DC Multivitamins (Thera M Plus) 1 tab DAILY 06/25/18 09:00 06/26/18 09:52 1 TAB Non-Formulary Medication (Metformin Hcl ) 1,000 mg BIDWMEALS 06/22/18 17:00 06/22/18 17:00 DC Non-Formulary Medication (Pioglitazone Hcl (Actos)) 1 tab DAILY 06/23/18 09:00 06/23/18 09:00 DC Ondansetron HCl (Zofran) 4 mg PRN Q6HRS PRN 06/22/18 14:15 Oxycodone HCl (Roxicodone) 5 mg PRN Q3HRS PRN 06/22/18 14:15 06/26/18 18:35 5 MG Prochlorperazine (Compazine) 25 mg PRN Q12HR PRN 06/22/18 14:15 Prochlorperazine Edisylate (Compazine) 10 mg PRN Q6HRS PRN 06/22/18 14:15 Sennosides (Senna) 17.2 mg BID 06/22/18 21:00 06/26/18 21:18 17.2 MG Sodium Polystyrene Sulfonate (Kayexalate) 15 gm 1X ONCE 06/23/18 09:30 06/23/18 09:31 DC 06/23/18 11:49 15 GM Tamsulosin HCl (Flomax) 0.4 mg DAILY 06/22/18 13:00 06/26/18 09:53 0.4 MG Warfarin Sodium (Coumadin Per Pharmacy) 1 each PRN DAILY PRN 06/22/18 14:15 06/26/18 10:48 1 EACH Warfarin Sodium (Coumadin) 5 mg 1X WARF ONCE 06/26/18 16:00 06/26/18 16:01 DC 06/26/18 18:35 5 MG Zolpidem Tartrate (Ambien) 5 mg PRN QHS PRN 06/22/18 14:15 Labs: Lab Laboratory Tests Test 06/26/18 11:46 06/26/18 16:43 06/26/18 20:47 06/27/18 07:35 Glucose (Fingerstick) 240 mg/dL (70-99) 160 mg/dL (70-99) 232 mg/dL (70-99) 119 mg/dL (70-99) Objective: Assessment: Cellulitis of left lower extremity and right foot ,slight improvement Nonhealing wounds of left lower extremity s/p I and D taken down to fascia on . MSSA ,improving Diabetes with peripheral neuropathy. h/o peripheral vascular disease. History of deep venous thrombosis, on warfarin therapy. 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 -was on Sutent for treatment Solitary kidney. Incarceration h/o MRSA and enterococcus Mild thrombocytopenia Plan: Plan of Care DC on keflex for 2 weeks zyvox for 5 more days, sw to assist with script Wound care per wound team f/u for us if needed D/w nursing MARCELLE MARSHALL MD Jun 27, 2018 08:34
[2018-06-27] MEDS: FUROSEMIDE 40 MG TABLET. PO SCH (09:00)
[2018-06-27] MEDS: LISINOPRIL 20 MG TABLET PO SCH (09:00)
[2018-06-27 09:34] LABS: PROTHROMBIN TIME PATIENT 20.9 SEC (11.7-14.0)
[2018-06-27] MEDS: oxyCODONE IR 5 MG TABLET PO PRN (10:20)
[2018-06-27] MEDS: ASCORBIC ACID 500 MG TABLET PO SCH (10:21)
[2018-06-27] MEDS: GABAPENTIN 300 MG CAPSULE. PO SCH (10:21)
[2018-06-27] MEDS: ALLOPURINOL 100 MG TABLET. PO SCH (10:22)
[2018-06-27] MEDS: SENNOSIDES 8.6 MG TABLET PO SCH (10:22)
[2018-06-27] MEDS: TAMSULOSIN 0.4 MG CAP.ER.24H. PO SCH (10:23)
[2018-06-27] MEDS: DOCUSATE SODIUM 100 MG CAPSULE. PO SCH (10:23)
[2018-06-27] MEDS: CETIRIZINE HCL 10 MG TABLET. PO SCH (10:23)
[2018-06-27] MEDS: MULTIVITAMIN with MINERAL TABLET. PO SCH (10:24)
[2018-06-27] MEDS: INSULIN GLARGINE 300 UNITS/3 ML INSULN.PEN. SQ SCH (10:35)
[2018-06-27 11:00] VITALS: BP 121/46
--- NOTE | 2018-06-27 11:12 | PDOC3 ---
Discharge Summary Visit Information Date of Admission: Jun 22, 2018 Date of Discharge: Jun 27, 2018 Final Diagnosis Cellulitis of left lower extremity and right foot Brief Hospital Course Allergies Allergies Coded Allergies Type Severity Reaction Last Updated Verified I S O L A T I O N *CONTACT* Allergy Unknown 04/05/18 Yes ibuprofen Adverse Reaction Intermediate 05/25/18 Yes Vital Signs Vital Signs Date Time Temp Pulse Resp B/P (MAP) Pulse Ox O2 Delivery O2 Flow Rate FiO2 06/27/18 10:20 Room Air 06/27/18 09:00 78 116/45 06/27/18 07:44 93 06/27/18 07:00 97.8 18 97.8 06/26/18 18:35 2.5 Lab Results Laboratory Tests Test 06/25/18 16:45 06/25/18 20:39 06/26/18 06:35 06/26/18 07:57 Glucose (Fingerstick) 140 mg/dL (70-99) 232 mg/dL (70-99) 151 mg/dL (70-99) Prothrombin Time 21.6 SEC (11.7-14.0) Prothromb Time International Ratio 1.9 (0.8-1.1) Test 06/26/18 11:46 06/26/18 16:43 06/26/18 20:47 06/27/18 07:35 Glucose (Fingerstick) 240 mg/dL (70-99) 160 mg/dL (70-99) 232 mg/dL (70-99) 119 mg/dL (70-99) Test 06/27/18 08:30 Prothrombin Time 20.9 SEC (11.7-14.0) Prothromb Time International Ratio 1.8 (0.8-1.1) Laboratory Tests Test 06/26/18 11:46 06/26/18 16:43 06/26/18 20:47 06/27/18 07:35 Glucose (Fingerstick) 240 mg/dL (70-99) 160 mg/dL (70-99) 232 mg/dL (70-99) 119 mg/dL (70-99) Test 06/27/18 08:30 Prothrombin Time 20.9 SEC (11.7-14.0) Prothromb Time International Ratio 1.8 (0.8-1.1) Brief Hospital Course 57-year-old male referred by [facility] wound care because of left leg wounds again that is not getting better in outpatient setting. patient admitted from May 25, 2018 to Jun 09, 2018 for marked complicated acute cellulitis left lower leg, - needed wound vac. He is finished with radiation for the solitray RT rib mets causing pain and is planned to follow-up one month from now with rad onc as instructed. He is on a chemotherapy agent by an outside team EITHER in [place] or [place]. [facility] will be [facility] 1 year from now. He has left leg blisters redness, some induration but much better than before. HE claims wound care in penitentiary is not ideal. HE is off wound vac,. No fevers on admission. supposed to be on warfarin because of RCC, hx history of recurrent DVT PE etc. Relays to me MS Contin 30 twice a day in penitentiary and some when necessary narcotic. Actos has been DC'd. He has a solitary kidney. patient has Occlusive thrombus left femoral vein-possibly remnant of previous DVT on that same leg - on warf. 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 has had mulktiple dvts since 1988. he is currently an inmate. he was placedo n IV abx with Linezolid and Cephazolin per ID. will plan to dc on keflex and zyvox for two weeks. he will continue wafarin with goal INR 2-3. He will need warfarin and not novel OAC as he would get clots recurring DVT PE and new pulmonary metastases from his RCC while on novel OAC-vascular surgery has recommended warfarin for life. He follows up with hem/onc in [place] /[place] for his RCC for chemotherapy. all IV lines removed prior to discharge back to [facility]. Discharge Information Condition at Discharge: Improved Follow Up: Weeks Disposition/Orders: Other (penitentiary) Scheduled Allopurinol (Allopurinol) 100 Mg Tablet, 100 MG PO 2tabs po daily for gout, ( Reported) Entered as Reported by: BRADLEY DANIELLE on 06/13/18 8439 Last Action: Continued on 06/22/18 1408 by SHAUN JOSE Atorvastatin Calcium (Atorvastatin Calcium) 40 Mg Tablet, 1 TAB PO QHS for hyperlipidemia, (Reported) Entered as Reported by: FITO ARELLANO on 05/25/18 7550 Last Action: Continued on 06/22/181407 by SHAUN JOSE Bacitracin/Polymyxin B Sulfate (Bacitracin-Polymyxin Ointment) 28.35 Gm Oint...g., 1 JOSUE TP TID for wound MDD 1, #1 Prescribed by: SHAUN JOSE on 06/09/18852 Last Action: Continued on 06/22/181407 by SHAUN JOSE Cetirizine Hcl (Zyrtec) 10 Mg Tablet, 1 TAB PO DAILY for allergy, (Reported) Entered as Reported by: FITO ARELLANO on 05/25/181819 Last Action: Continued on 06/22/181407 by SHAUN JOSE Furosemide (Furosemide) 20 Mg Tablet, 1 TAB PO DAILY for swelling, (Reported) Entered as Reported by: FITO ARELLANO on 05/25/181735 Last Action: Continued on 06/22/181407 by SHAUN JOSE Gabapentin (Gabapentin) 600 Mg Tablet, 600 MG PO DAILY08 for NEUROGENIC PAIN, ( Reported) Entered as Reported by: FITO ARELLANO on 05/25/181813 Last Action: Converted on 06/22/181407 by SHAUN JOSE Gabapentin (Gabapentin) 300 Mg Capsule, 900 MG PO HS for neuropathy MDD 1, #30 Prescribed by: SHAUN JOSE on 06/09/18852 Last Action: Continued on 06/22/181407 by SHAUN JOSE Insulin Lispro (Humalog) 100 Unit/1 Ml Insuln.pen, 4 UNITS SQ TIDWMEALS for dm MDD 1, #30 Prescribed by: SHAUN JOSE on 06/09/18852 Last Action: Continued on 06/22/181407 by SHAUN JOSE Insulin Regular, Human (Humulin R) 100 Unit/1 Ml Vial, 100 UNIT IJ TID sliding scale for diabetes, (Reported) Entered as Reported by: FITO ARELLANO on 05/25/181735 Last Action: HELD on 06/22/181407 by SHAUN JOSE Lisinopril (Lisinopril) 20 Mg Tablet, 1 TAB PO DAILY for hypertension, (Reported ) Entered as Reported by: FITO ARELLANO on 05/25/181735 Last Action: Continued on 06/22/181407 by SHAUN JOSE Metformin Hcl (Metformin Hcl) 1,000 Mg Tablet, 1,000 MG PO BIDWMEALS for diabetes, (Reported) Entered as Reported by: FITO ARELLANO on 05/25/181816 Last Action: Converted on 06/22/181407 by SHAUN JOSE Methyl Salicylate/Menthol (Muscle Rub Cream) 113 Gm Cream..g., 1 GM TP TID for pain, (Reported) Entered as Reported by: FITO ARELLANO on 05/25/181830 Last Action: Converted on 06/22/181407 by SHAUN JOSE Nph, Human Insulin Isophane (Novolin N) 100 Unit/1 Ml Vial, 20 UNIT SQ BID for diabetes, (Reported) Entered as Reported by: FITO ARELLANO on 05/25/181735 Last Action: Converted on 06/22/181407 by SHAUN JOSE Pioglitazone Hcl (Actos) 45 Mg Tablet, 1 TAB PO DAILY for diabetes, (Reported) Entered as Reported by: FITO ARELLANO on 05/25/181735 Last Action: Converted on 06/22/181407 by SHAUN JOSE Sennosides (Senna) 8.6 Mg Tablet, 2 MG PO BID for constipation, (Reported) Entered as Reported by: FITO ARELLANO on 05/25/181735 Last Action: Converted on 06/22/181407 by SHAUN JOSE Tamsulosin Hcl (Flomax) 0.4 Mg Cap.er.24h, 1 CAP PO DAILY for BPH, (Reported) Entered as Reported by: FITO ARELLANO on 05/25/181811 Last Action: Continued on 06/22/181407 by SHAUN JOSE Scheduled PRN Acetaminophen (Tylenol) 325 Mg Tablet, 2 TAB PO TID PRN PRN for PAIN, (Reported) Entered as Reported by: FITO ARELLANO on 05/25/181735 Last Action: Continued on 06/22/181407 by SHAUN JOSE Albuterol Sulfate (Proair Hfa Inhaler) 8.5 Gm Hfa.aer.ad, 1 PUFF INH PRN Q6HRS PRN for SHORTNESS OF BREATH, (Reported) Entered as Reported by: FITO ARELLANO on 05/25/18 1831 Last Action: Continued on 06/22/181407 by SHAUN JOSE Discontinued Medications Hydrocodone Bit/Acetaminophen (Hydrocodone-Apap 5-325 ) 1 Tab Tablet, 1 TAB PO PRN Q6HRS PRN for PAIN, (Reported) Entered as Reported by: BRADLEY DANIELLE on 06/13/18 0841 Last Action: Continued on 06/22/181407 by HETAL VELEZ MD Jun 27, 2018 11:12
[2018-06-27] MEDS: HYDROcodone/APAP 5/325MG 1 TAB TABLET PO PRN (13:14)
--- NOTE | 2018-06-27 14:35 | NUR ---
Pt was discharged back to [facility] at 1350 with all personal belongings. PICC line removed without any complications, pt tolerated very well. Report called into [facility], packet given to [employer] guards, all pertinent information faxed to [employer]. Pt was escorted by [employer] guards and driven by [employer] security transportation back to the facility.
[2018-06-28 07:52] LABS: CARDIOLIPIN ANTIBODIES SEE SEPARATE REPORT; LUPUS ANTICOAGULANT SEE SEPARATE REPORT
== END 2018-06-27 13:50 | disposition home or self-care (01) | DRG 638 ==
LOC: EEVIPCON 13:39 → 4 NORTH 13:39
PROVIDERS: ADMIT Internal Medicine; ATTEND Internal Medicine
DX: E11.622 Type 2 diabetes mellitus with other skin ulcer (principal); L03.116 Cellulitis of left lower limb; L97.922 Non-pressure chronic ulcer of unspecified part of left lower leg with fat layer exposed; E44.0 Moderate protein-calorie malnutrition; C78.00 Secondary malignant neoplasm of unspecified lung; C64.9 Malignant neoplasm of unspecified kidney, except renal pelvis; E46 Unspecified protein-calorie malnutrition; C79.51 Secondary malignant neoplasm of bone; R04.2 Hemoptysis; Z68.41 Body mass index [BMI] 40.0-44.9, adult; L03.115 Cellulitis of right lower limb; E66.9 Obesity, unspecified; I10 Essential (primary) hypertension; E11.42 Type 2 diabetes mellitus with diabetic polyneuropathy; D69.6 Thrombocytopenia, unspecified; E11.51 Type 2 diabetes mellitus with diabetic peripheral angiopathy without gangrene; Z82.49 Family history of ischemic heart disease and other diseases of the circulatory system; Z68.38 Body mass index [BMI] 38.0-38.9, adult; Z86.718 Personal history of other venous thrombosis and embolism; Z92.3 Personal history of irradiation; Z86.14 Personal history of Methicillin resistant Staphylococcus aureus infection; Z79.01 Long term (current) use of anticoagulants; Z91.19 Patient's noncompliance with other medical treatment and regimen
CPT/HCPCS: 36415; 80048; 82962; 83735; 84100; 85025; 85610; 85651; 86146; 86147; 87040; 94640; 94760; J0690; J1815; J2020; J7613; J7620

== ENCOUNTER 2018-07-06 08:22 | Inpatient (IN) | payer MEDICARE, MEDICAID ==
[~2018-07-06] VITALS: Ht 172.7 cm; Wt 117.5 kg
[2018-07-06 08:41] LABS: BASO % 0 % (0-3); EOS # 0.2 x10^3/uL (0.0-0.7); EOS % 3 % (0-3); HEMATOCRIT 25.2 % (39.0-53.0); LYMPH # 2.6 x10^3/uL (1.0-4.8); LYMPH % 48 % (24-48); MEAN CORPUSCULAR HEMOGLOBIN 29 pg (25-35); MEAN CORPUSCULAR HGB CONC 32 g/dL (31-37); MEAN CORPUSCULAR VOLUME 93 fL (79-100); MONO # 0.7 x10^3/uL (0.0-1.1); MONO % 12 % (0-9); NEUT % 37 % (31-73); PLATELET COUNT 91 x10^3/uL (140-400); RED BLOOD COUNT 2.72 x10^6/uL (4.30-5.70); RED CELL DISTRIBUTION WIDTH 18.6 % (11.5-14.5); WHITE BLOOD COUNT 5.4 x10^3/uL (4.0-11.0)
--- NOTE | 2018-07-06 08:44 | PHYS DOC ---
Past Medical History Past Medical History: Cancer, CHF, Diabetes-Type II, DVT, High Cholesterol, Hypertension Additional Past Medical Histor: GOUT, HYPERKALEMIA, DIABETIC FOOT ULCERS, RENAL CA Past Surgical History: Other Additional Past Surgical Histo: R. NEPHRECTOMY, WOUND DEBRIDEMENT Alcohol Use: None Drug Use: None Social History Incarcerated Adult General Chief Complaint Chief Complaint: HYPERKALEMIA HPI HPI 57-year-old male [facility]. He reports generally feeling fatigued and malaised but otherwise denies any symptoms. He has a complicated medical history including diabetes hypertension CHF renal cancer chronic anemia and a history of DVTs. Onset today. Location generalized. I spoke with the medical physician taking care [facility] and the [facility]. They report that he has had acute kidney injury which is now improving but his potassium is going up. Review of systems is negative for chest pain shortness of breath abdominal pain nausea vomiting fevers or chills. All other review of systems is negative unless otherwise noted in history of present illness. ED course: 57-year-old male presenting to the emergency department for hyperkalemia. Vital signs 99.2F. Heart rate 93. Blood pressure 178/66. Satur ating 97% on room air. EKG obtained and reviewed by myself shows sinus rhythm with a regular rate. ST segments congruent. Not suggestive of ACS. There are not peaking T waves. QRS is within normal limits. Blood work obtained which shows hyperkalemia. We will admit the patient to Dr. Cortes our hospitalist. I spoke with Dr. Morton at approximately 945. Meds given for hyperkalemia here in the emergency department. Review of Systems Review of Systems SEE ABOVE. Current Medications Current Medications Current Medications Medications (Trade) Dose Ordered Sig/[facility] Start Time Stop Time Status Last Admin Dose Admin Calcium Gluconate (Calcium Gluconate) 1,000 mg 1X ONCE 07/06/18 09:45 07/06/18 09:46 DC Dextrose (Dextrose 50%-Water Syringe) 25 gm 1X ONCE 07/06/18 09:45 07/06/18 09:46 UNV Insulin Human Regular (HumuLIN R VIAL) 10 unit 1X ONCE 07/06/18 09:45 07/06/18 09:46 DC Morphine Sulfate (Morphine Sulfate) 2 mg PRN Q2HR PRN 07/06/18 09:45 07/07/18 09:44 UNV Ondansetron HCl (Zofran) 4 mg PRN Q8HRS PRN 07/06/18 09:45 07/07/18 09:44 UNV Sodium Bicarbonate (Sodium Bicarb Adult 8.4% Syr) 50 meq 1X ONCE 07/06/18 09:45 07/06/18 09:46 DC Sodium Chloride 1,000 ml @ 100 mls/hr Q10H 07/06/18 09:44 07/06/18 13:43 Allergies Allergies Allergies Coded Allergies Type Severity Reaction Last Updated Verified I S O L A T I O N *CONTACT* Allergy Unknown 04/05/18 Yes ibuprofen Adverse Reaction Intermediate 05/25/18 Yes Physical Exam Physical Exam Constitutional: Well developed, well nourished, no acute distress, non-toxic appearance. HENT: Normocephalic, atraumatic, bilateral external ears normal, oropharynx moist, no oral exudates, nose normal. [] Eyes: PERRLA, EOMI, conjunctiva normal, no discharge. Neck: Normal range of motion, no tenderness, supple, no stridor. [] Cardiovascular:Heart rate regular rhythm, no murmur Lungs & Thorax: Bilateral breath sounds clear to auscultation Abdomen: Bowel sounds normal, soft, no tenderness, no masses, no pulsatile ma sses. [] Skin: Warm, dry, no erythema, no rash. Back: No tenderness, no CVA tenderness. [] Extremities: The patient has a chronic wound on his left lower extremity that is dressed. Otherwise extremities are unremarkable. Neurologic: Alert and oriented X 3, normal motor function, normal sensory function, no focal deficits noted. Psychologic: Affect normal, judgement normal, mood normal. [] Current Patient Data Vital Signs Vital Signs Date Time Temp Pulse Resp B/P (MAP) Pulse Ox O2 Delivery O2 Flow Rate FiO2 07/06/18 08:30 99.2 93 18 138/64 (88) 97 Room Air 99.2 Lab Values Laboratory Tests Test 07/06/18 08:26 White Blood Count 5.4 x10^3/uL (4.0-11.0) Red Blood Count 2.72 x10^6/uL (4.30-5.70) L Hemoglobin 8.0 g/dL (13.0-17.5) L Hematocrit 25.2 % (39.0-53.0) L Mean Corpuscular Volume 93 fL (79-100) Mean Corpuscular Hemoglobin 29 pg (25-35) Mean Corpuscular Hemoglobin Concent 32 g/dL (31-37) Red Cell Distribution Width 18.6 % (11.5-14.5) H Platelet Count 91 x10^3/uL (140-400) L Neutrophils (%) (Auto) 37 % (31-73) Lymphocytes (%) (Auto) 48 % (24-48) Monocytes (%) (Auto) 12 % (0-9) H Eosinophils (%) (Auto) 3 % (0-3) Basophils (%) (Auto) 0 % (0-3) Neutrophils # (Auto) 2.0 x10^3uL (1.8-7.7) Lymphocytes # (Auto) 2.6 x10^3/uL (1.0-4.8) Monocytes # (Auto) 0.7 x10^3/uL (0.0-1.1) Eosinophils # (Auto) 0.2 x10^3/uL (0.0-0.7) Basophils # (Auto) 0.0 x10^3/uL (0.0-0.2) Sodium Level 137 mmol/L (136-145) Potassium Level 6.3 mmol/L (3.5-5.1) *H Chloride Level 105 mmol/L (98-107) Carbon Dioxide Level 25 mmol/L (21-32) Anion Gap 7 (6-14) Blood Urea Nitrogen 40 mg/dL (8-26) H Creatinine 1.6 mg/dL (0.7-1.3) H Estimated GFR (Cockcroft-Gault) 44.6 BUN/Creatinine Ratio 25 (6-20) H Glucose Level 107 mg/dL (70-99) H Calcium Level 8.8 mg/dL (8.5-10.1) Total Bilirubin 0.2 mg/dL (0.2-1.0) Aspartate Amino Transferase (AST) 22 U/L (15-37) Alanine Aminotransferase (ALT) 21 U/L (16-63) Alkaline Phosphatase 65 U/L (46-116) Total Protein 5.7 g/dL (6.4-8.2) L Albumin 2.9 g/dL (3.4-5.0) L Albumin/Globulin Ratio 1.0 (1.0-1.7) Laboratory Tests 07/06/18 08:26 Laboratory Tests 07/06/18 08:26 EKG EKG [] Radiology/Procedures Radiology/Procedures [] Course & Med Decision Making Course & Med Decision Making Pertinent Labs and Imaging studies reviewed. (See chart for details) [] Dragon Disclaimer Dragon Disclaimer This electronic medical record was generated, in whole or in part, using a voice recognition dictation system. Departure Departure Impression: Primary Impression: Hyperkalemia Additional Impression: Acute kidney injury Disposition: ADMITTED INPATIENT Admitting Physician: Ronald Cortes Condition: STABLE Referrals: NO PCP (PCP) Problem Qualifiers GORGE ROBERTS MD Jul 06, 2018 08:44
[2018-07-06 08:58] LABS: ALBUMIN 2.9 g/dL (3.4-5.0); CALCIUM 8.8 mg/dL (8.5-10.1); CREATININE 1.6 mg/dL (0.7-1.3); GFR 44.6; TOTAL BILIRUBIN 0.2 mg/dL (0.2-1.0); TOTAL PROTEIN 5.7 g/dL (6.4-8.2)
[2018-07-06 09:11] LABS: POTASSIUM 6.3 mmol/L (3.5-5.1)
[2018-07-06] MEDS ORDERED: IV NORMAL SALINE 1000ML BAG 1,000 ML IV SCH (09:44)
[2018-07-06] MEDS ORDERED: ONDANSETRON PF 4 MG/2 ML VIAL. IV PRN (09:45)
[2018-07-06] MEDS ORDERED: CALCIUM GLUCONATE 1,000 MG/10 ML VIAL. IVP ONE (09:45)
[2018-07-06] MEDS ORDERED: DEXTROSE 50% 25 GM / 50ML DISP.SYRIN. IV ONE ×2 (09:45→12:29)
[2018-07-06] MEDS ORDERED: MORPHINE SULFATE 2 MG/ML VIAL. IV PRN (09:45)
[2018-07-06] MEDS ORDERED: SODIUM BICARB ADULT 8.4% 50 MEQ/50 ML DISP.SYRIN. IV ONE (09:45)
[2018-07-06] MEDS ORDERED: INSULIN REGULAR 100 UNIT/ML 3ML VIAL. IV ONE (09:45)
[2018-07-06 11:46] VITALS: BP 149/68
--- NOTE | 2018-07-06 13:22 | EKG ---
[facility] [address] [place] [address] Test Date: 2018-07-06 Test Time: 08:47:28 Pat Name: HELADIO GAO Department: Room: 207 1 Gender: M Manager Rn Case: : [id number] Requested By: GORGE ROBERTS Order Number: [id number] Reading MD: Deandre Vickers Measurements Intervals [place] Rate: 91 P: 28 UT: 152 QRS: 0 QRSD: 84 T: 32 QT: 322 QTc: 402 Interpretive Statements SINUS RHYTHM LEFTWARD AXIS INCOMPLETE RIGHT BUNDLE BRANCH BLOCK OTHERWISE NORMAL ECG Compared to ECG 05/26/2018 10:25:59 Left-axis deviation now present Incomplete right bundle-branch block now present Electronically Signed On 07-11-2018 12:05:43 CDT by Deandre Vickers
[2018-07-06] MEDS ORDERED: CABO60TA PO (13:26)
[2018-07-06] MEDS ORDERED: ONDA4TAB7 PO (13:26)
[2018-07-06] MEDS ORDERED: DOCU100C28 PO (13:26)
[2018-07-06] MEDS ORDERED: MORP30TA3 PO (13:26)
[2018-07-06] MEDS ORDERED: LACT20SO PO (13:26)
[2018-07-06] MEDS ORDERED: HYDR-2761 PO (13:26)
[2018-07-06] MEDS ORDERED: WARF6TAB47 PO (13:26)
[2018-07-06] MEDS ORDERED: PANT20TA2 PO (13:26)
[2018-07-06] MEDS ORDERED: PNV1TABL31 PO (13:26)
[2018-07-06] MEDS ORDERED: INSULIN REGULAR 100 UNIT/ML 3ML VIAL. SQ SCH (13:30)
[2018-07-06] MEDS ORDERED: METHYL SALICYLATE/MENTHOL TOPICAL OINTMENT 29GM TUBE. TP SCH (14:00)
[2018-07-06] MEDS ORDERED: ONDANSETRON ODT 4 MG TAB.RAPDIS. PO SCH (14:00)
--- NOTE | 2018-07-06 14:04 | HP ---
ADMIT DATE: 07/06/2018 CHIEF COMPLAINT: Weakness and high potassium. HISTORY OF PRESENT ILLNESS: The patient is a pleasant 57-year-old male, who is from [facility] where he has resided for the past 16 years. He states he gets out in a year. He is minimal custody. Basically, he presented with hyperkalemia of greater than 6. He has got associated weakness. He does have a history of acute kidney injury some time ago and his creatinine is now down to 1.6, but his potassium is high. I discussed the case with the ER physician. We are going to admit the patient and consult Nephrology. PAST MEDICAL HISTORY: Hyperkalemia; chronic renal insufficiency; acute kidney injury, baseline creatinine of less than 1.5; CHF; nephrectomy; gout; hypertension; hyperlipidemia; diabetic foot ulcers; renal cell carcinoma; wound debridements. ALLERGIES: None. FAMILY HISTORY: Hypertension. SOCIAL HISTORY: Does not drink, smoke or take drugs. He is incarcerated for the past 16 years. He gets out next July. MEDICATIONS: Reviewed, please refer to the MRAD. REVIEW OF SYSTEMS: GENERAL: No history of weight change, weakness or fevers. SKIN: No bruising, hair changes or rashes. EYES: No blurred, double or loss of vision. NOSE AND THROAT: No history of nosebleeds, hoarseness or sore throat. HEART: No history of palpitations, chest pain or shortness of breath on exertion. LUNGS: Denies cough, hemoptysis, wheezing or shortness of breath. GASTROINTESTINAL: Denies changes in appetite, nausea, vomiting, diarrhea or constipation. GENITOURINARY: No history of frequency, urgency, hesitancy or nocturia. NEUROLOGIC: Denies history of numbness, tingling, tremor or weakness. PSYCHIATRIC: No history of panic, anxiety or depression. ENDOCRINE: No history of heat or cold intolerance, polyuria or polydipsia. EXTREMITIES: Denies muscle weakness, joint pain, pain on walking or stiffness. PHYSICAL EXAMINATION: VITAL SIGNS: Temperature afebrile, pulse 98, respirations 16, blood pressure 144/90. GENERAL: He is alert, cooperative. HEART: Normal S1 and S2. LUNGS: Clear. ABDOMEN: Soft, obese. EXTREMITIES: Trace edema. SKIN: No rash. ENDOCRINE: No thyromegaly. LYMPHATICS: No cervical nodes. HEMATOPOIETIC: No bruising. PSYCHIATRIC: He is stable. LABORATORY DATA: Potassium is 6. ASSESSMENT AND PLAN: Hyperkalemia and acute on chronic renal failure. The patient is being admitted. We will consult Nephrology, cardiac monitoring, one ____ of Kayexalate, full code, deep venous thrombosis prophylaxis, home meds, frequent labs, cardiac monitoring. [place] DO DR: MADHURI/edgard JOB#: [id number] / [id number]
[2018-07-06] MEDS ORDERED: DEXTROSE 50% 25 GM / 50ML DISP.SYRIN. IV PRN (14:15)
[2018-07-06 14:46] LABS: PROTHROMBIN TIME PATIENT 34.7 SEC (11.7-14.0)
[2018-07-06] MEDS ORDERED: ONDANSETRON ODT 4 MG TAB.RAPDIS. PO PRN (15:00)
[2018-07-06] MEDS ORDERED: METHYL SALICYLATE/MENTHOL TOPICAL OINTMENT 29GM TUBE. TP PRN (15:00)
--- NOTE | 2018-07-06 15:01 | NUR ---
Wound Care Wound care consult for LLE stasis ulcers. Cleansed, pictured and measured wounds. Redressed with HFB, ABDs and 3 layer compression wrap. WC will follow up on Monday for next dressing change. No other wounds noted on full skin inspection. PT and RN notified of POC.
[2018-07-06 15:22] VITALS: BP 139/62
[2018-07-06] MEDS: DEXTROSE 50% 25 GM / 50ML DISP.SYRIN. IV ONE ×2 (16:00→18:47)
[2018-07-06] MEDS: INSULIN REGULAR 100 UNIT/ML 3ML VIAL. IV ONE ×2 (16:00→18:49)
[2018-07-06] MEDS: INSULIN LISPRO 300 UNITS/3 ML INSULN.PEN. SQ SCH ×2 (17:00)
[2018-07-06] MEDS: metFORMIN 500 MG TABLET PO SCH (17:21)
--- NOTE | 2018-07-06 19:11 | NUR ---
PT LOST IV ACCESS WAS UNABLE TO OBTAIN NEW IV, THIS SPECIAL NEEDS TEACHER NOTIFIED DR. MARSHALL (NEPHROLOGY) OF UNABLE TO ADMINISTER D50 25GM IV AND INSULIN 10 UNITS DUE TO NO IV ACCESS, NEW ORDER OBTAINED Addendum: 07/06/18 at 1917 by TERRA ROLAND RN FOR 60GM OF KAYEXALATE PO, TRY ANESTHESIA STICK, IF NOT ABLE TO OBTAIN IV ACCESS OK FOR PICC PLACEMENT.
[2018-07-06 19:30] VITALS: BP 107/53
[2018-07-06] MEDS ORDERED: SODIUM POLYSTYRENE SULFONATE 15 GM/60 ML ORAL.SUSP. PO ONE (19:45)
[2018-07-06] MEDS ORDERED: CABOZANTINIB S MALATE 60 MG PO SCH (21:00)
[2018-07-06] MEDS: MORPHINE ER 30 MG TABLET.ER PO SCH (21:53)
[2018-07-06] MEDS: DOCUSATE SODIUM 100 MG CAPSULE. PO SCH (21:53)
[2018-07-06] MEDS: SENNOSIDES 8.6 MG TABLET PO SCH (21:53)
[2018-07-06] MEDS: GABAPENTIN 300 MG CAPSULE. PO SCH (21:53)
[2018-07-06] MEDS: LACTULOSE 20 GM/30 ML SOLUTION. PO SCH (21:53)
[2018-07-06] MEDS: ATORVASTATIN CALCIUM 40 MG TABLET. PO SCH (21:54)
[2018-07-06] MEDS: INSULIN GLARGINE 300 UNITS/3 ML INSULN.PEN. SQ SCH (22:00)
[2018-07-06 23:48] VITALS: BP 130/60
[2018-07-07 03:45] VITALS: BP 153/67
[2018-07-07 06:20] LABS: BASO % 1 % (0-3); EOS # 0.1 x10^3/uL (0.0-0.7); EOS % 2 % (0-3); HEMATOCRIT 23.7 % (39.0-53.0); HEMOGLOBIN 7.7 g/dL (13.0-17.5); LYMPH # 2.6 x10^3/uL (1.0-4.8); LYMPH % 48 % (24-48); MEAN CORPUSCULAR HEMOGLOBIN 30 pg (25-35); MEAN CORPUSCULAR HGB CONC 33 g/dL (31-37); MEAN CORPUSCULAR VOLUME 92 fL (79-100); MONO # 0.6 x10^3/uL (0.0-1.1); MONO % 11 % (0-9); NEUT # 2.1 x10^3uL (1.8-7.7); NEUT % 38 % (31-73); PLATELET COUNT 91 x10^3/uL (140-400); RED BLOOD COUNT 2.59 x10^6/uL (4.30-5.70); RED CELL DISTRIBUTION WIDTH 18.6 % (11.5-14.5); WHITE BLOOD COUNT 5.4 x10^3/uL (4.0-11.0)
[2018-07-07 06:44] LABS: CREATININE 1.1 mg/dL (0.7-1.3); GFR 68.8; POTASSIUM 5.9 mmol/L (3.5-5.1)
[2018-07-07 07:35] VITALS: BP 124/60
[2018-07-07] MEDS: LACTULOSE 20 GM/30 ML SOLUTION. PO SCH ×2 (07:57→21:04)
[2018-07-07] MEDS: PANTOPRAZOLE 40 MG TABLET.DR. PO SCH (07:57)
[2018-07-07] MEDS: PRENATAL MULTIVITAMIN TABLET. PO SCH (07:57)
[2018-07-07] MEDS: SENNOSIDES 8.6 MG TABLET PO SCH ×2 (07:57→21:05)
[2018-07-07] MEDS: FUROSEMIDE 20 MG TABLET PO SCH (07:58)
[2018-07-07] MEDS: metFORMIN 500 MG TABLET PO SCH ×2 (07:58→17:23)
[2018-07-07] MEDS: GABAPENTIN 300 MG CAPSULE. PO SCH ×2 (07:58→21:04)
[2018-07-07] MEDS: INSULIN LISPRO 300 UNITS/3 ML INSULN.PEN. SQ SCH ×6 (08:00→17:26)
[2018-07-07] MEDS: MORPHINE ER 30 MG TABLET.ER PO SCH ×2 (08:00→21:05)
[2018-07-07] MEDS: DOCUSATE SODIUM 100 MG CAPSULE. PO SCH ×2 (08:00→21:05)
[2018-07-07] MEDS: CETIRIZINE HCL 10 MG TABLET. PO SCH (08:00)
[2018-07-07] MEDS: TAMSULOSIN 0.4 MG CAP.ER.24H. PO SCH (08:01)
[2018-07-07] MEDS: INSULIN GLARGINE 300 UNITS/3 ML INSULN.PEN. SQ SCH ×2 (08:04→21:11)
[2018-07-07] MEDS ORDERED: DEXTROSE 50% 25 GM / 50ML DISP.SYRIN. IV PRN (08:30)
--- NOTE | 2018-07-07 09:07 | RAD ---
PORTABLE CHEST 1V History: PICC placement Comparison: June 01, 2018 Findings: Single view of the chest is submitted. There is now left upper extremity PICC with the tip near the cavoatrial junction. There are innumerable bilateral lung masses as seen previously. There is no pneumothorax or pleural fluid. There is no new lobar infiltrate. Heart size is stable, within normal limits. Impression: 1. There is now left upper extremity PICC with the tip near the cavoatrial junction. 2. There are again innumerable bilateral lung masses. Electronically signed by: Yury Ann MD (07/07/2018 9:04 AM) [facility]
--- NOTE | 2018-07-07 09:42 | PDOC ---
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 Tilley History Occlusive thrombus left femoral vein-possibly remnant of previous DVT on that same leg - on warf - supratherapeutic INR, 3.4-no bleeding History epistaxis and hematemesis Diabetes moderate control Hypertension controlled Obesity BMI 38 Incarcerated release date July 2018 Moderate PCM History thrombocytopenia platelets 136 range History of Present Illness History of Present Illness KnOwn to me, but his readmission is for hyperkalemia not from leg wounds or thrombocytopenia or bleeding or from his other chronic issues/signif past medica l hx The other recent chronic medical issues seems like we have fixed He is from [facility] - release is July 2018 He has otherwise no complaints Hemoglobin 7, potassium 5.9 from 6 after Kayexalate INR 3.4 with no bleeding Plan: warfarin per pharmacy protocol, no Coumadin tonight 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 Renal consulted Give more Kayexalate He's on Lasix 20 once a day with no potassium supplements in alf Legs look very good no need to increase dose of Lasix Wound care Consult care for continuity of care Check INR tomorrow Vitals Vitals Vital Signs Date Time Temp Pulse Resp B/P (MAP) Pulse Ox O2 Delivery O2 Flow Rate FiO2 07/07/18 08:00 20 98 Nasal Cannula 2.0 07/07/18 07:35 98.2 82 124/60 (81) 98.2 Physical Exam General: Alert, Oriented X3, Cooperative Heart: Regular rate, Normal S1 Lungs: Clear Abdomen: Normal bowel sounds, Soft Extremities: No clubbing, No cyanosis, No edema Skin: Other (bilateral legs are wrapped, no wound VAC) Labs LABS Laboratory Tests Test 07/06/18 13:00 07/06/18 15:14 07/06/18 16:40 07/06/18 20:58 Nasal Screen MRSA (PCR) Negative (Negative) Potassium Level 6.3 mmol/L (3.5-5.1) Glucose (Fingerstick) 158 mg/dL (70-99) 157 mg/dL (70-99) Test 07/07/18 05:30 07/07/18 07:42 White Blood Count 5.4 x10^3/uL (4.0-11.0) Red Blood Count 2.59 x10^6/uL (4.30-5.70) Hemoglobin 7.7 g/dL (13.0-17.5) Hematocrit 23.7 % (39.0-53.0) Mean Corpuscular Volume 92 fL (79-100) Mean Corpuscular Hemoglobin 30 pg (25-35) Mean Corpuscular Hemoglobin Concent 33 g/dL (31-37) Red Cell Distribution Width 18.6 % (11.5-14.5) Platelet Count 91 x10^3/uL (140-400) Neutrophils (%) (Auto) 38 % (31-73) Lymphocytes (%) (Auto) 48 % (24-48) Monocytes (%) (Auto) 11 % (0-9) Eosinophils (%) (Auto) 2 % (0-3) Basophils (%) (Auto) 1 % (0-3) Neutrophils # (Auto) 2.1 x10^3uL (1.8-7.7) Lymphocytes # (Auto) 2.6 x10^3/uL (1.0-4.8) Monocytes # (Auto) 0.6 x10^3/uL (0.0-1.1) Eosinophils # (Auto) 0.1 x10^3/uL (0.0-0.7) Basophils # (Auto) 0.0 x10^3/uL (0.0-0.2) Sodium Level 141 mmol/L (136-145) Potassium Level 5.9 mmol/L (3.5-5.1) Chloride Level 107 mmol/L (98-107) Carbon Dioxide Level 28 mmol/L (21-32) Anion Gap 6 (6-14) Blood Urea Nitrogen 22 mg/dL (8-26) Creatinine 1.1 mg/dL (0.7-1.3) Estimated GFR (Cockcroft-Gault) 68.8 Glucose Level 144 mg/dL (70-99) Calcium Level 9.0 mg/dL (8.5-10.1) Glucose (Fingerstick) 123 mg/dL (70-99) Review of Systems Review of Systems A 14 point ROS was completed with the following noted as positive: Other systems reviewed and negative. \CONSTITUTIONAL: No fever or chills EYES: No recent changes SKIN: No rash or itching CARDIOVASCULAR: No chest pain, syncope, palpitations, or edema RESPIRATORY: No SOB or cough GASTROINTESTINAL: No nausea, vomiting or abdominal pain NEUROLOGICAL: No headaches or weakness ENDOCRINE: No cold or heat intolerance GENITOURINARY: No urgency or frequency of urination MUSCULOSKELETAL: No back pain or joint pain LYMPHATICS: No enlarged lymph nodes PSYCHIATRIC: No anxiety or depression Assessment and Plan Assessmemt and Plan Problems Medical Problems: (1) Acute kidney injury Status: Acute (2) Hyperkalemia Status: Acute Comment Review of Relevant I have reviewed the following items anjana (where applicable) has been applied. Labs Laboratory Tests Test 07/06/18 08:26 07/06/18 13:00 07/06/18 15:14 07/06/18 16:40 White Blood Count 5.4 x10^3/uL (4.0-11.0) Red Blood Count 2.72 x10^6/uL (4.30-5.70) Hemoglobin 8.0 g/dL (13.0-17.5) Hematocrit 25.2 % (39.0-53.0) Mean Corpuscular Volume 93 fL (79-100) Mean Corpuscular Hemoglobin 29 pg (25-35) Mean Corpuscular Hemoglobin Concent 32 g/dL (31-37) Red Cell Distribution Width 18.6 % (11.5-14.5) Platelet Count 91 x10^3/uL (140-400) Neutrophils (%) (Auto) 37 % (31-73) Lymphocytes (%) (Auto) 48 % (24-48) Monocytes (%) (Auto) 12 % (0-9) Eosinophils (%) (Auto) 3 % (0-3) Basophils (%) (Auto) 0 % (0-3) Neutrophils # (Auto) 2.0 x10^3uL (1.8-7.7) Lymphocytes # (Auto) 2.6 x10^3/uL (1.0-4.8) Monocytes # (Auto) 0.7 x10^3/uL (0.0-1.1) Eosinophils # (Auto) 0.2 x10^3/uL (0.0-0.7) Basophils # (Auto) 0.0 x10^3/uL (0.0-0.2) Prothrombin Time 34.7 SEC (11.7-14.0) Prothromb Time International Ratio 3.4 (0.8-1.1) Sodium Level 137 mmol/L (136-145) Potassium Level 6.3 mmol/L (3.5-5.1) 6.3 mmol/L (3.5-5.1) Chloride Level 105 mmol/L (98-107) Carbon Dioxide Level 25 mmol/L (21-32) Anion Gap 7 (6-14) Blood Urea Nitrogen 40 mg/dL (8-26) Creatinine 1.6 mg/dL (0.7-1.3) Estimated GFR (Cockcroft-Gault) 44.6 BUN/Creatinine Ratio 25 (6-20) Glucose Level 107 mg/dL (70-99) Calcium Level 8.8 mg/dL (8.5-10.1) Total Bilirubin 0.2 mg/dL (0.2-1.0) Aspartate Amino Transf (AST/SGOT) 22 U/L (15-37) Alanine Aminotransferase (ALT/SGPT) 21 U/L (16-63) Alkaline Phosphatase 65 U/L (46-116) Total Protein 5.7 g/dL (6.4-8.2) Albumin 2.9 g/dL (3.4-5.0) Albumin/Globulin Ratio 1.0 (1.0-1.7) Nasal Screen MRSA (PCR) Negative (Negative) Glucose (Fingerstick) 158 mg/dL (70-99) Test 07/06/18 20:58 07/07/18 05:30 07/07/18 07:42 Glucose (Fingerstick) 157 mg/dL (70-99) 123 mg/dL (70-99) White Blood Count 5.4 x10^3/uL (4.0-11.0) Red Blood Count 2.59 x10^6/uL (4.30-5.70) Hemoglobin 7.7 g/dL (13.0-17.5) Hematocrit 23.7 % (39.0-53.0) Mean Corpuscular Volume 92 fL (79-100) Mean Corpuscular Hemoglobin 30 pg (25-35) Mean Corpuscular Hemoglobin Concent 33 g/dL (31-37) Red Cell Distribution Width 18.6 % (11.5-14.5) Platelet Count 91 x10^3/uL (140-400) Neutrophils (%) (Auto) 38 % (31-73) Lymphocytes (%) (Auto) 48 % (24-48) Monocytes (%) (Auto) 11 % (0-9) Eosinophils (%) (Auto) 2 % (0-3) Basophils (%) (Auto) 1 % (0-3) Neutrophils # (Auto) 2.1 x10^3uL (1.8-7.7) Lymphocytes # (Auto) 2.6 x10^3/uL (1.0-4.8) Monocytes # (Auto) 0.6 x10^3/uL (0.0-1.1) Eosinophils # (Auto) 0.1 x10^3/uL (0.0-0.7) Basophils # (Auto) 0.0 x10^3/uL (0.0-0.2) Sodium Level 141 mmol/L (136-145) Potassium Level 5.9 mmol/L (3.5-5.1) Chloride Level 107 mmol/L (98-107) Carbon Dioxide Level 28 mmol/L (21-32) Anion Gap 6 (6-14) Blood Urea Nitrogen 22 mg/dL (8-26) Creatinine 1.1 mg/dL (0.7-1.3) Estimated GFR (Cockcroft-Gault) 68.8 Glucose Level 144 mg/dL (70-99) Calcium Level 9.0 mg/dL (8.5-10.1) Laboratory Tests Test 07/06/18 13:00 07/06/18 15:14 07/06/18 16:40 07/06/18 20:58 Nasal Screen MRSA (PCR) Negative (Negative) Potassium Level 6.3 mmol/L (3.5-5.1) Glucose (Fingerstick) 158 mg/dL (70-99) 157 mg/dL (70-99) Test 07/07/18 05:30 07/07/18 07:42 White Blood Count 5.4 x10^3/uL (4.0-11.0) Red Blood Count 2.59 x10^6/uL (4.30-5.70) Hemoglobin 7.7 g/dL (13.0-17.5) Hematocrit 23.7 % (39.0-53.0) Mean Corpuscular Volume 92 fL (79-100) Mean Corpuscular Hemoglobin 30 pg (25-35) Mean Corpuscular Hemoglobin Concent 33 g/dL (31-37) Red Cell Distribution Width 18.6 % (11.5-14.5) Platelet Count 91 x10^3/uL (140-400) Neutrophils (%) (Auto) 38 % (31-73) Lymphocytes (%) (Auto) 48 % (24-48) Monocytes (%) (Auto) 11 % (0-9) Eosinophils (%) (Auto) 2 % (0-3) Basophils (%) (Auto) 1 % (0-3) Neutrophils # (Auto) 2.1 x10^3uL (1.8-7.7) Lymphocytes # (Auto) 2.6 x10^3/uL (1.0-4.8) Monocytes # (Auto) 0.6 x10^3/uL (0.0-1.1) Eosinophils # (Auto) 0.1 x10^3/uL (0.0-0.7) Basophils # (Auto) 0.0 x10^3/uL (0.0-0.2) Sodium Level 141 mmol/L (136-145) Potassium Level 5.9 mmol/L (3.5-5.1) Chloride Level 107 mmol/L (98-107) Carbon Dioxide Level 28 mmol/L (21-32) Anion Gap 6 (6-14) Blood Urea Nitrogen 22 mg/dL (8-26) Creatinine 1.1 mg/dL (0.7-1.3) Estimated GFR (Cockcroft-Gault) 68.8 Glucose Level 144 mg/dL (70-99) Calcium Level 9.0 mg/dL (8.5-10.1) Glucose (Fingerstick) 123 mg/dL (70-99) Medications Current Medications Sodium Bicarbonate (Sodium Bicarb Adult 8.4% Syr) 50 meq 1X ONCE IV Last administered on 07/06/18at 11:04; Start 07/06/18 at 09:45; Stop 07/06/18 at 09:46; Status DC Calcium Gluconate (Calcium Gluconate) 1,000 mg 1X ONCE IVP Last administered on 07/06/18at 11:02; Start 07/06/18 at 09:45; Stop 07/06/18 at 09:46; Status DC Insulin Human Regular (HumuLIN R VIAL) 10 unit 1X ONCE IV Last administered on 07/06/18 11:08; Start 07/06/18 at 09:45; Stop 07/06/18 at 09:46; Status DC Dextrose (Dextrose 50%-Water Syringe) 25 gm 1X ONCE IV Last administered on 07/06/18 11:03; Start 07/06/18 at 09:45; Stop 07/06/18 at 09:48; Status DC Ondansetron HCl (Zofran) 4 mg PRN Q8HRS PRN IV NAUSEA/VOMITING; Start 07/06/18 at 09:45; Stop 07/07/18 at 09:44 Morphine Sulfate (Morphine Sulfate) 2 mg PRN Q2HR PRN IV PAIN; Start 07/06/18 at 09:45; Stop 07/07/18 at 09:44 Sodium Chloride 1,000 ml @ 100 mls/hr Q10H IV Last administered on 07/06/18at 09:44; Start 07/06/18 at 09:44; Stop 07/06/18 at 13:43; Status DC Allopurinol (Zyloprim) 200 mg DAILY PO ; Start 07/07/18 at 09:00 Atorvastatin Calcium (Lipitor) 40 mg QHS PO Last administered on 07/06/18at 21:54; Start 07/06/18 at 21:00 Cetirizine HCl (ZyrTEC) 10 mg DAILY PO Last administered on 07/07/18 08:00; Start 07/07/18 at 09:00 Docusate Sodium (Colace) 100 mg BID PO Last administered on 07/07/18 08:00; Start 07/06/18 at 21:00 Furosemide (Lasix) 20 mg DAILY PO Last administered on 07/07/18at 07:58; Start 07/07/18 at 09:00 Gabapentin (Neurontin) 900 mg HS PO Last administered on 07/06/18at 21:53; Start 07/06/18 at 21:00 Acetaminophen/ Hydrocodone Bitart (Lortab 5/325) 2 tab PRN Q8HRS PRN PO MODERATE PAIN; Start 07/06/18 at 13:30 Insulin Human Lispro (HumaLOG) 4 units TIDWMEALS SQ Last administered on 07/07/18 08:03; Start 07/06/18 at 17:00 Insulin Human Regular (HumuLIN R VIAL) 100 unit SSI SQ ; Start 07/06/18 at 13:30; Status UNV Lactulose (Lactulose) 20 gm BID PO Last administered on 07/07/18 07:57; Start 07/06/18 at 21:00 Morphine Sulfate (Ms Contin) 30 mg BID PO Last administered on 07/07/18at 08:00; Start 07/06/18 at 21:00 Tamsulosin HCl (Flomax) 0.4 mg DAILY PO Last administered on 07/07/18 08:01; Start 07/07/18 at 09:00 Non-Formulary Medication (Cabozantinib S-Malate (Cabometyx)) 60 mg HS PO ; Start 07/06/18 at 21:00; Status UNV Gabapentin (Neurontin) 600 mg DAILY08 PO Last administered on 07/07/18at 07:58; Start 07/07/18 at 08:00 Metformin HCl (Glucophage) 1,000 mg BIDWMEALS PO Last administered on 07/07/18at 07:58; Start 07/06/18 at 17:00 Multi-Ingredient Ointment (Analgesic Dyke) 1 yanira TID TP ; Start 07/06/18 at 14 :00; Stop 07/06/18 at 14:55; Status DC Insulin Glargine (Lantus) 20 units BID SQ Last administered on 07/07/18at 08:04; Start 07/06/18 at 21:00 Ondansetron HCl (Zofran Odt) 4 mg Q8HRS PO ; Start 07/06/18 at 14:00; Stop 07/06/18 at 14:55; Status DC Pantoprazole Sodium (Protonix) 40 mg DAILYAC PO Last administered on 07/07/18 07:57; Start 07/07/18 at 07:30 Multivit/ Folic Acid/Iron (Multivitamin ) 1 tab DAILY PO Last administered on 07/07/18 07:57; Start 07/07/18 at 09:00 Sennosides (Senna) 17.2 mg BID PO Last administered on 4/27/19at 07:57; Start 07/06/18 at 21:00 Warfarin Sodium (Coumadin) 6 mg DAILY16 PO ; Start 07/07/18 at 16:00; Stop 07/07/18 at 16:00; Status DC Insulin Human Lispro (HumaLOG) 0-5 UNITS TIDWMEALS SQ ; Start 07/06/18 at 17:00; Stop 07/07/18 at 08:25; Status DC Dextrose (Dextrose 50%-Water Syringe) 12.5 gm PRN Q15MIN PRN IV SEE COMMENTS; Start 07/06/18 at 14:15 Multi-Ingredient Ointment (Analgesic Dyke) 1 yanira PRN TID PRN TP PAIN; Start 07/06/18 at 15:00 Ondansetron HCl (Zofran Odt) 4 mg PRN Q8HRS PRN PO NAUSEA/VOMITING; Start 07/06/18 at 15:00 Dextrose (Dextrose 50%-Water Syringe) 25 gm 1X ONCE IV ; Start 07/06/18 at 16:00; Stop 07/06/18 at 16:01; Status DC Insulin Human Regular (HumuLIN R VIAL) 10 unit 1X ONCE IV ; Start 07/06/18 at 16:00; Stop 07/06/18 at 16:01; Status DC Sodium Polystyrene Sulfonate (Kayexalate) 60 gm 1X ONCE PO Last administered on 07/06/18at 19:45; Start 07/06/18 at 19:45; Stop 07/06/18 at 19:46; Status DC Insulin Human Lispro (HumaLOG) 0-9 UNITS TIDWMEALS SQ ; Start 07/07/18 at 12:00 Dextrose (Dextrose 50%-Water Syringe) 12.5 gm PRN Q15MIN PRN IV SEE COMMENTS; Start 07/07/18 at 08:30 Warfarin Sodium (Coumadin - No Dose Today) 1 each 1X WARF ONCE MC ; Start 07/07/18 at 16:00; Stop 07/07/18 at 16:01 Warfarin Sodium (Coumadin Per Pharmacy) 1 each PRN DAILY PRN MC SEE COMMENTS; Start 07/07/18 at 08:30 Active Scripts Active Bacitracin-Polymyxin Ointment (Bacitracin/Polymyxin B Sulfate) 28.35 Gm Oint...g. 1 Yanira TP TID MDD 1 Humalog (Insulin Lispro) 100 Unit/1 Ml Insuln.pen 4 Units SQ TIDWMEALS MDD 1 Gabapentin 300 Mg Capsule 900 Mg PO HS MDD 1 Reported Zofran (Ondansetron Hcl) 4 Mg Tablet 1 Tab PO Q8HRS Warfarin Sodium 6 Mg Tablet 6 Mg PO DAILY Protonix (Pantoprazole Sodium) 20 Mg Tablet.dr 40 Mg PO DAILY Plus Tablet (Pnv With Ca,No.72/Iron/Fa) 1 Each Tablet 1 Tab PO DAILY Hydrocodone-Apap 5-325 (Hydrocodone Bit/Acetaminophen) 1 Tab Tablet 2 Tab PO PRN Q8HRS PRN Morphine Sulfate Er (Morphine Sulfate) 30 Mg Tablet.er 1 Tab PO BID Lactulose 20 Gm/30 Ml Solution 20 Gm PO BID Docusate Sodium 100 Mg Capsule 1 Cap PO BID Cabometyx (Cabozantinib S-Malate) 60 Mg Tablet 60 Mg PO HS Allopurinol 100 Mg Tablet 200 Mg PO DAILY Muscle Rub Cream (Methyl Salicylate/Menthol) 113 Gm Cream..g. 1 Gm TP TID Proair Hfa Inhaler (Albuterol Sulfate) 8.5 Gm Hfa.aer.ad 1 Puff INH PRN Q6HRS PRN Zyrtec (Cetirizine Hcl) 10 Mg Tablet 1 Tab PO DAILY Atorvastatin Calcium 40 Mg Tablet 1 Tab PO QHS Metformin Hcl 1,000 Mg Tablet 1,000 Mg PO BIDWMEALS Gabapentin 600 Mg Tablet 600 Mg PO DAILY08 Flomax (Tamsulosin Hcl) 0.4 Mg Cap.er.24h 1 Cap PO DAILY Humulin R (Insulin Regular, Human) 100 Unit/1 Ml Vial 100 Unit IJ TID SLIDING SCALE Furosemide 20 Mg Tablet 1 Tab PO DAILY Novolin N (Nph, Human Insulin Isophane) 100 Unit/1 Ml Vial 20 Unit SQ BID Senna (Sennosides) 8.6 Mg Tablet 2 Mg PO BID Vitals/I & O Vital Sign - Last 24 Hours 07/06/18 07/06/18 07/06/18 07/06/18 09:57 10:27 10:57 11:15 Pulse 88 86 84 Resp 11 12 10 B/P (MAP) 119/54 (75) 114/54 (74) 114/56 (75) Pulse Ox 98 99 98 O2 Delivery Room Air Room Air Room Air Nasal Cannula O2 Flow Rate 2.0 07/06/18 07/06/18 07/06/18 07/06/18 11:46 15:22 19:30 20:00 Temp 97.8 97.3 98.2 97.8 97.3 98.2 Pulse 97 90 99 Resp 18 16 18 B/P (MAP) 149/68 (95) 139/62 (87) 107/53 (71) Pulse Ox 94 100 99 O2 Delivery Nasal Cannula Nasal Cannula Nasal Cannula Room Air O2 Flow Rate 2.0 2.0 2.0 07/06/18 07/06/18 07/07/18 07/07/18 21:53 23:48 02:00 03:45 Temp 98.2 98.1 98.2 98.1 Pulse 89 85 Resp 22 17 20 B/P (MAP) 130/60 (83) 153/67 (95) Pulse Ox 97 98 O2 Delivery Room Air Nasal Cannula Room Air Nasal Cannula O2 Flow Rate 2.0 2.0 07/07/18 07/07/18 07/07/18 07/07/18 07:25 07:35 07:46 08:00 Temp 98.2 98.2 Pulse 82 Resp 16 20 B/P (MAP) 124/60 (81) Pulse Ox 98 98 O2 Delivery Room Air Nasal Cannula Room Air Nasal Cannula O2 Flow Rate 2.0 2.0 Intake and Output 07/06/18 07/06/18 07/07/18 15:00 23:00 07:00 Intake Total 210 ml 600 ml 1020 ml Output Total 1100 ml 900 ml Balance 210 ml -500 ml 120 ml SHAUN JOSE MD Jul 07, 2018 09:42
[2018-07-07] MEDS: INSULIN REGULAR 100 UNIT/ML 3ML VIAL. IV ONE ×2 (09:45→10:02)
[2018-07-07] MEDS ORDERED: SODIUM POLYSTYRENE SULFONATE 15 GM/60 ML ORAL.SUSP. PO ONE (09:45)
[2018-07-07] MEDS ORDERED: DEXTROSE 25% 10 ML DISP.SYRIN. IV ONE (09:45)
[2018-07-07] MEDS: ALLOPURINOL 100 MG TABLET. PO SCH (09:51)
[2018-07-07] MEDS ORDERED: DEXTROSE 50% 25 GM / 50ML DISP.SYRIN. IV ONE (10:00)
--- NOTE | 2018-07-07 11:07 | NUR ---
FACULTY CO-SIGN I have reviewed the documentation by Celeste Cotto foreign exchange student coordinator, [facility]: Addendum: 07/07/18 at 1108 by ANN LOPEZ RN Amended: Links added.
[2018-07-07 11:15] VITALS: BP 138/61
[2018-07-07] MEDS: HYDROcodone/APAP 5/325MG 1 TAB TABLET PO PRN (11:32)
[2018-07-07 11:53] LABS: PROTHROMBIN TIME PATIENT 30.4 SEC (11.7-14.0)
--- NOTE | 2018-07-07 13:03 | PDOC2 ---
CONSULT Date of Consult Date of Consult DATE: 07/07/18 TIME: 12:49 Reason for Consult Reason for Consult: AK I, hyperkalemia Referring Physician Referring Physician: Brian Cortes Identification/Chief Complaint Chief Complaint Abnormal labs, hyperkalemia Source Source: Chart review, Patient History of Present Illness Reason for Visit: 57-year-old male inmate. He is known to have had kidney cancer on his right kidney which was removed in 2011. He thereafter developed metastatic disease which was recently diagnosed and is on chemotherapy for the same. He was feeling fatigued and malaised and labs were checked. He was noted to be in acute renal failure as well as hyperkalemic. He was hence sent to our facility after discussion with the ER physician. On arrival here he was noted to have a potassium of 6.3 and a creatinine of 1.6. He was treated with temporizing measures and his potassium is now down to 5.9 for which she has received more Kayexalate currently. Urine output is adequate. Bicarbonate is 28. Past Medical History Cardiovascular: HTN CENTRAL NERVOUS SYSTEM: Periperal neuropathy GI: No pertinent hx Heme/Onc: No pertinent hx Musculoskeletal: Stiffness Infectious disease: No pertinent hx, Other Renal/: No pertinent hx Endocrine: Diabetes Past Surgical History Past Surgical History: Hernia Repair, Other Family History Family History: Hypertension Social History Social History Currently incarcerated ALCOHOL: none Drugs: None Current Problem List Problem List Problems Medical Problems: (1) Acute kidney injury Status: Acute (2) Hyperkalemia Status: Acute Current Medications Current Medications Current Medications Sodium Bicarbonate (Sodium Bicarb Adult 8.4% Syr) 50 meq 1X ONCE IV Last administered on 07/06/18at 11:04; Start 07/06/18 at 09:45; Stop 07/06/18 at 09:46; Status DC Calcium Gluconate (Calcium Gluconate) 1,000 mg 1X ONCE IVP Last administered on 07/06/18at 11:02; Start 07/06/18 at 09:45; Stop 07/06/18 at 09:46; Status DC Insulin Human Regular (HumuLIN R VIAL) 10 unit 1X ONCE IV Last administered on 07/06/18at 11:08; Start 07/06/18 at 09:45; Stop 07/06/18 at 09:46; Status DC Dextrose (Dextrose 50%-Water Syringe) 25 gm 1X ONCE IV Last administered on 07/06/18 11:03; Start 07/06/18 at 09:45; Stop 07/06/18 at 09:48; Status DC Ondansetron HCl (Zofran) 4 mg PRN Q8HRS PRN IV NAUSEA/VOMITING; Start 07/06/18 at 09:45; Stop 07/07/18 at 09:44; Status DC Morphine Sulfate (Morphine Sulfate) 2 mg PRN Q2HR PRN IV PAIN; Start 07/06/18 at 09:45; Stop 07/07/18 at 09:44; Status DC Sodium Chloride 1,000 ml @ 100 mls/hr Q10H IV Last administered on 07/06/18at 09:44; Start 07/06/18 at 09:44; Stop 07/06/18 at 13:43; Status DC Allopurinol (Zyloprim) 200 mg DAILY PO Last administered on 07/07/18 09:51; Start 07/07/18 at 09:00 Atorvastatin Calcium (Lipitor) 40 mg QHS PO Last administered on 07/06/18 21:54; Start 07/06/18 at 21:00 Cetirizine HCl (ZyrTEC) 10 mg DAILY PO Last administered on 07/07/18 08:00; S tart 07/07/18 at 09:00 Docusate Sodium (Colace) 100 mg BID PO Last administered on 07/07/18 08:00; Start 07/06/18 at 21:00 Furosemide (Lasix) 20 mg DAILY PO Last administered on 07/07/18 07:58; Start 07/07/18 at 09:00 Gabapentin (Neurontin) 900 mg HS PO Last administered on 07/06/18 21:53; Start 07/06/18 at 21:00 Acetaminophen/ Hydrocodone Bitart (Lortab 5/325) 2 tab PRN Q8HRS PRN PO MODERATE PAIN Last administered on 07/07/18 11:32; Start 07/06/18 at 13:30 Insulin Human Lispro (HumaLOG) 4 units TIDWMEALS SQ Last administered on 07/07/18 11:56; Start 07/06/18 at 17:00 Insulin Human Regular (HumuLIN R VIAL) 100 unit SSI SQ ; Start 07/06/18 at 13:30; Status UNV Lactulose (Lactulose) 20 gm BID PO Last administered on 07/07/18 07:57; Start 07/06/18 at 21:00 Morphine Sulfate (Ms Contin) 30 mg BID PO Last administered on 07/07/18at 08:00; Start 07/06/18 at 21:00 Tamsulosin HCl (Flomax) 0.4 mg DAILY PO Last administered on 07/07/18at 08:01; Start 07/07/18 at 09:00 Non-Formulary Medication (Cabozantinib S-Malate (Cabometyx)) 60 mg HS PO ; Start 07/06/18 at 21:00; Status UNV Gabapentin (Neurontin) 600 mg DAILY08 PO Last administered on 07/07/18 07:58; Start 07/07/18 at 08:00 Metformin HCl (Glucophage) 1,000 mg BIDWMEALS PO Last administered on 07/07/18at 07:58; Start 07/06/18 at 17:00 Multi-Ingredient Ointment (Analgesic [place]) 1 yanira TID TP ; Start 07/06/18 at 14:00; Stop 07/06/18 at 14:55; Status DC Insulin Glargine (Lantus) 20 units BID SQ Last administered on 07/07/18at 08:04; Start 07/06/18 at 21:00 Ondansetron HCl (Zofran Odt) 4 mg Q8HRS PO ; Start 07/06/18 at 14:00; Stop 07/06/18 at 14:55; Status DC Pantoprazole Sodium (Protonix) 40 mg DAILYAC PO Last administered on 07/07/18at 07:57; Start 07/07/18 at 07:30 Multivit/ Folic Acid/Iron (Multivitamin ) 1 tab DAILY PO Last administered on 07/07/18 07:57; Start 07/07/18 at 09:00 Sennosides (Senna) 17.2 mg BID PO Last administered on 07/07/18at 07:57; Start 07/06/18 at 21:00 Warfarin Sodium (Coumadin) 6 mg DAILY16 PO ; Start 07/07/18 at 16:00; Stop 07/07/18 at 16:00; Status DC Insulin Human Lispro (HumaLOG) 0-5 UNITS TIDWMEALS SQ ; Start 07/06/18 at 17:00; Stop 07/07/18 at 08:25; Status DC Dextrose (Dextrose 50%-Water Syringe) 12.5 gm PRN Q15MIN PRN IV SEE COMMENTS; Start 07/06/18 at 14:15 Multi-Ingredient Ointment (Analgesic [place]) 1 yanira PRN TID PRN TP PAIN; Start 07/06/18 at 15:00 Ondansetron HCl (Zofran Odt) 4 mg PRN Q8HRS PRN PO NAUSEA/VOMITING; Start 07/06/18 at 15:00 Dextrose (Dextrose 50%-Water Syringe) 25 gm 1X ONCE IV ; Start 07/06/18 at 16:00; Stop 07/06/18 at 16:01; Status DC Insulin Human Regular (HumuLIN R VIAL) 10 unit 1X ONCE IV ; Start 07/06/18 at 16:00; Stop 07/06/18 at 16:01; Status DC Sodium Polystyrene Sulfonate (Kayexalate) 60 gm 1X ONCE PO Last administered o n 07/06/18at 19:45; Start 07/06/18 at 19:45; Stop 07/06/18 at 19:46; Status DC Insulin Human Lispro (HumaLOG) 0-9 UNITS TIDWMEALS SQ ; Start 07/07/18 at 12:00 Dextrose (Dextrose 50%-Water Syringe) 12.5 gm PRN Q15MIN PRN IV SEE COMMENTS; Start 07/07/18 at 08:30 Warfarin Sodium (Coumadin - No Dose Today) 1 each 1X WARF ONCE MC ; Start 07/07/18 at 16:00; Stop 07/07/18 at 16:01 Warfarin Sodium (Coumadin Per Pharmacy) 1 each PRN DAILY PRN MC SEE COMMENTS; Start 07/07/18 at 08:30 Sodium Polystyrene Sulfonate (Kayexalate) 15 gm 1X ONCE PO Last administered on 07/07/18at 09:51; Start 07/07/18 at 09:45; Stop 07/07/18 at 09:46; Status DC Dextrose (Dextrose 25% Syringe) 10 ml 1X ONCE IV ; Start 07/07/18 at 09:45; Stop 07/07/18 at 09:46; Status UNV Insulin Human Regular (HumuLIN R VIAL) 10 unit 1X ONCE IV Last administered on 07/07/18at 10:02; Start 07/07/18 at 09:45; Stop 07/07/18 at 09:46; Status DC Dextrose (Dextrose 50%-Water Syringe) 25 gm 1X ONCE IV Last administered on 07/07/18at 10:02; Start 07/07/18 at 10:00; Stop 07/07/18 at 10:01; Status DC Active Scripts Active Bacitracin-Polymyxin Ointment (Bacitracin/Polymyxin B Sulfate) 28.35 Gm Oint...g. 1 Yanira TP TID MDD 1 Humalog (Insulin Lispro) 100 Unit/1 Ml Insuln.pen 4 Units SQ TIDWMEALS MDD 1 Gabapentin 300 Mg Capsule 900 Mg PO HS MDD 1 Reported Zofran (Ondansetron Hcl) 4 Mg Tablet 1 Tab PO Q8HRS Warfarin Sodium 6 Mg Tablet 6 Mg PO DAILY Protonix (Pantoprazole Sodium) 20 Mg Tablet.dr 40 Mg PO DAILY Plus Tablet (Pnv With Ca,No.72/Iron/Fa) 1 Each Tablet 1 Tab PO DAILY Hydrocodone-Apap 5-325 (Hydrocodone Bit/Acetaminophen) 1 Tab Tablet 2 Tab PO PRN Q8HRS PRN Morphine Sulfate Er (Morphine Sulfate) 30 Mg Tablet.er 1 Tab PO BID Lactulose 20 Gm/30 Ml Solution 20 Gm PO BID Docusate Sodium 100 Mg Capsule 1 Cap PO BID Cabometyx (Cabozantinib S-Malate) 60 Mg Tablet 60 Mg PO HS Allopurinol 100 Mg Tablet 200 Mg PO DAILY Muscle Rub Cream (Methyl Salicylate/Menthol) 113 Gm Cream..g. 1 Gm TP TID Proair Hfa Inhaler (Albuterol Sulfate) 8.5 Gm Hfa.aer.ad 1 Puff INH PRN Q6HRS PRN Zyrtec (Cetirizine Hcl) 10 Mg Tablet 1 Tab PO DAILY Atorvastatin Calcium 40 Mg Tablet 1 Tab PO QHS Metformin Hcl 1,000 Mg Tablet 1,000 Mg PO BIDWMEALS Gabapentin 600 Mg Tablet 600 Mg PO DAILY08 Flomax (Tamsulosin Hcl) 0.4 Mg Cap.er.24h 1 Cap PO DAILY Humulin R (Insulin Regular, Human) 100 Unit/1 Ml Vial 100 Unit IJ TID SLIDING SCALE Furosemide 20 Mg Tablet 1 Tab PO DAILY Novolin N (Nph, Human Insulin Isophane) 100 Unit/1 Ml Vial 20 Unit SQ BID Senna (Sennosides) 8.6 Mg Tablet 2 Mg PO BID Allergies Allergies: Coded Allergies: I S O L A T I O N *CONTACT* (Verified Allergy, Unknown, 04/05/18) mrsa ibuprofen (Verified Adverse Reaction, Intermediate, 05/25/18) Warfarin ROS Review of System 14 point systems reviewed negative other than as in history of present illness Physical Exam Physical Exam General Appearance: Awake Alert Oriented x 3 In no Distress Eyes: VIsion Unchanged Conjunctiva Normal EN: No EN Drainage Mucous Memb. moiist Neck: no JVD no JVP Supple no Thyromegaly, thick neck CVS: S1 S2 no Murmur No Gallop No Rub +2 Edema Resp: no Rales no Rhonchi no Acc. Muscle use GI: BS +ve NO Bruit Non Tender Non Distended; Obese abd : no CVA tenderness; no Suprapubic Tenderness SKIN: no visible Rashes Breast Exam deferred, numerous tatoos Mu.Sk: Adequate ROM no Muscle Atrophy Heme: Unable to palpate Obvious LAD no palp Splenomegaly NEURO: Good Strength and Tone Cranial Nerves II - XII grossly intact Psych: not Depressed no Active hallucination Vital Signs Vital Signs Date Time Temp Pulse Resp B/P (MAP) Pulse Ox O2 Delivery O2 Flow Rate FiO2 07/07/18 12:00 98 Nasal Cannula 2.0 07/07/18 11:15 97.7 61 16 138/61 (86) 97.7 Assessment & Plan Acute kidney injury: Now resolved with IV fluids as ordered. Hyperkalemia: Now improving with temporizing measures. He may need to be on a renal diet at discharge. Lisinopril has been appropriately discontinued currently. Edema lower extremities: noted DVT scan. Extent of intra-abdominal spread of his underlying malignancy is not known given lack of imaging studies in our system. His Lasix for now Hypertension: Presumably associated with chemotherapeutic regimen. Blood pressures are currently better controlled. Labs Labs Laboratory Tests Test 07/06/18 08:26 07/06/18 13:00 07/06/18 15:14 07/06/18 16:40 White Blood Count 5.4 x10^3/uL (4.0-11.0) Red Blood Count 2.72 x10^6/uL (4.30-5.70) Hemoglobin 8.0 g/dL (13.0-17.5) Hematocrit 25.2 % (39.0-53.0) Mean Corpuscular Volume 93 fL (79-100) Mean Corpuscular Hemoglobin 29 pg (25-35) Mean Corpuscular Hemoglobin Concent 32 g/dL (31-37) Red Cell Distribution Width 18.6 % (11.5-14.5) Platelet Count 91 x10^3/uL (140-400) Neutrophils (%) (Auto) 37 % (31-73) Lymphocytes (%) (Auto) 48 % (24-48) Monocytes (%) (Auto) 12 % (0-9) Eosinophils (%) (Auto) 3 % (0-3) Basophils (%) (Auto) 0 % (0-3) Neutrophils # (Auto) 2.0 x10^3uL (1.8-7.7) Lymphocytes # (Auto) 2.6 x10^3/uL (1.0-4.8) Monocytes # (Auto) 0.7 x10^3/uL (0.0-1.1) Eosinophils # (Auto) 0.2 x10^3/uL (0.0-0.7) Basophils # (Auto) 0.0 x10^3/uL (0.0-0.2) Prothrombin Time 34.7 SEC (11.7-14.0) Prothromb Time International Ratio 3.4 (0.8-1.1) Sodium Level 137 mmol/L (136-145) Potassium Level 6.3 mmol/L (3.5-5.1) 6.3 mmol/L (3.5-5.1) Chloride Level 105 mmol/L (98-107) Carbon Dioxide Level 25 mmol/L (21-32) Anion Gap 7 (6-14) Blood Urea Nitrogen 40 mg/dL (8-26) Creatinine 1.6 mg/dL (0.7-1.3) Estimated GFR (Cockcroft-Gault) 44.6 BUN/Creatinine Ratio 25 (6-20) Glucose Level 107 mg/dL (70-99) Calcium Level 8.8 mg/dL (8.5-10.1) Total Bilirubin 0.2 mg/dL (0.2-1.0) Aspartate Amino Transf (AST/SGOT) 22 U/L (15-37) Alanine Aminotransferase (ALT/SGPT) 21 U/L (16-63) Alkaline Phosphatase 65 U/L (46-116) Total Protein 5.7 g/dL (6.4-8.2) Albumin 2.9 g/dL (3.4-5.0) Albumin/Globulin Ratio 1.0 (1.0-1.7) Nasal Screen MRSA (PCR) Negative (Negative) Glucose (Fingerstick) 158 mg/dL (70-99) Test 07/06/18 20:58 07/07/18 05:30 07/07/18 07:42 07/07/18 10:30 Glucose (Fingerstick) 157 mg/dL (70-99) 123 mg/dL (70-99) White Blood Count 5.4 x10^3/uL (4.0-11.0) Red Blood Count 2.59 x10^6/uL (4.30-5.70) Hemoglobin 7.7 g/dL (13.0-17.5) Hematocrit 23.7 % (39.0-53.0) Mean Corpuscular Volume 92 fL (79-100) Mean Corpuscular Hemoglobin 30 pg (25-35) Mean Corpuscular Hemoglobin Concent 33 g/dL (31-37) Red Cell Distribution Width 18.6 % (11.5-14.5) Platelet Count 91 x10^3/uL (140-400) Neutrophils (%) (Auto) 38 % (31-73) Lymphocytes (%) (Auto) 48 % (24-48) Monocytes (%) (Auto) 11 % (0-9) Eosinophils (%) (Auto) 2 % (0-3) Basophils (%) (Auto) 1 % (0-3) Neutrophils # (Auto) 2.1 x10^3uL (1.8-7.7) Lymphocytes # (Auto) 2.6 x10^3/uL (1.0-4.8) Monocytes # (Auto) 0.6 x10^3/uL (0.0-1.1) Eosinophils # (Auto) 0.1 x10^3/uL (0.0-0.7) Basophils # (Auto) 0.0 x10^3/uL (0.0-0.2) Sodium Level 141 mmol/L (136-145) Potassium Level 5.9 mmol/L (3.5-5.1) Chloride Level 107 mmol/L (98-107) Carbon Dioxide Level 28 mmol/L (21-32) Anion Gap 6 (6-14) Blood Urea Nitrogen 22 mg/dL (8-26) Creatinine 1.1 mg/dL (0.7-1.3) Estimated GFR (Cockcroft-Gault) 68.8 Glucose Level 144 mg/dL (70-99) Calcium Level 9.0 mg/dL (8.5-10.1) Prothrombin Time 30.4 SEC (11.7-14.0) Prothromb Time International Ratio 2.9 (0.8-1.1) Test 07/07/18 11:14 Glucose (Fingerstick) 118 mg/dL (70-99) Laboratory Tests Test 07/06/18 13:00 07/06/18 15:14 07/06/18 16:40 07/06/18 20:58 Nasal Screen MRSA (PCR) Negative (Negative) Potassium Level 6.3 mmol/L (3.5-5.1) Glucose (Fingerstick) 158 mg/dL (70-99) 157 mg/dL (70-99) Test 07/07/18 05:30 07/07/18 07:42 07/07/18 10:30 07/07/18 11:14 White Blood Count 5.4 x10^3/uL (4.0-11.0) Red Blood Count 2.59 x10^6/uL (4.30-5.70) Hemoglobin 7.7 g/dL (13.0-17.5) Hematocrit 23.7 % (39.0-53.0) Mean Corpuscular Volume 92 fL (79-100) Mean Corpuscular Hemoglobin 30 pg (25-35) Mean Corpuscular Hemoglobin Concent 33 g/dL (31-37) Red Cell Distribution Width 18.6 % (11.5-14.5) Platelet Count 91 x10^3/uL (140-400) Neutrophils (%) (Auto) 38 % (31-73) Lymphocytes (%) (Auto) 48 % (24-48) Monocytes (%) (Auto) 11 % (0-9) Eosinophils (%) (Auto) 2 % (0-3) Basophils (%) (Auto) 1 % (0-3) Neutrophils # (Auto) 2.1 x10^3uL (1.8-7.7) Lymphocytes # (Auto) 2.6 x10^3/uL (1.0-4.8) Monocytes # (Auto) 0.6 x10^3/uL (0.0-1.1) Eosinophils # (Auto) 0.1 x10^3/uL (0.0-0.7) Basophils # (Auto) 0.0 x10^3/uL (0.0-0.2) Sodium Level 141 mmol/L (136-145) Potassium Level 5.9 mmol/L (3.5-5.1) Chloride Level 107 mmol/L (98-107) Carbon Dioxide Level 28 mmol/L (21-32) Anion Gap 6 (6-14) Blood Urea Nitrogen 22 mg/dL (8-26) Creatinine 1.1 mg/dL (0.7-1.3) Estimated GFR (Cockcroft-Gault) 68.8 Glucose Level 144 mg/dL (70-99) Calcium Level 9.0 mg/dL (8.5-10.1) Glucose (Fingerstick) 123 mg/dL (70-99) 118 mg/dL (70-99) Prothrombin Time 30.4 SEC (11.7-14.0) Prothromb Time International Ratio 2.9 (0.8-1.1) Review All relevant outside records, renal labs, imaging studies, telemetry/EKG's were reviewed. Images Images IMPRESSION: Nonocclusive thrombus in the superficial femoral vein in the left thigh which is probably residual chronic thrombus in this patient who had extensive left lower extremity DVT in 2017. IMPRESSION: 1. There are innumerable bilateral lung masses, evidence of metastatic disease. There are small bilateral pleural effusions. There is expansile right posterior ninth rib mass. IMPRESSION: 1. Extensive subcutaneous edema or cellulitis of the left thigh and lower left flank. No definite drainable abscess although could be difficult to detect a small fluid collection by CT. 2. Mild nonspecific left inguinal lymph node enlargement, may be inflammatory or infectious in this clinical setting. RACHEL MARSHALL MD Jul 07, 2018 13:03
[2018-07-07 14:45] VITALS: BP 149/64
[2018-07-07] MEDS ORDERED: WARFARIN 3 MG TABLET. PO SCH (16:00)
[2018-07-07 19:00] VITALS: BP 138/62
[2018-07-07] MEDS: ATORVASTATIN CALCIUM 40 MG TABLET. PO SCH (21:05)
[2018-07-07 23:00] VITALS: BP 129/60
[2018-07-08 03:00] VITALS: BP 144/69
[2018-07-08 05:39] LABS: BASO % 0 % (0-3); EOS # 0.2 x10^3/uL (0.0-0.7); EOS % 3 % (0-3); HEMATOCRIT 24.9 % (39.0-53.0); HEMOGLOBIN 8.1 g/dL (13.0-17.5); LYMPH # 2.8 x10^3/uL (1.0-4.8); LYMPH % 49 % (24-48); MEAN CORPUSCULAR HEMOGLOBIN 30 pg (25-35); MEAN CORPUSCULAR HGB CONC 33 g/dL (31-37); MEAN CORPUSCULAR VOLUME 91 fL (79-100); MONO # 0.6 x10^3/uL (0.0-1.1); MONO % 10 % (0-9); NEUT # 2.2 x10^3uL (1.8-7.7); NEUT % 38 % (31-73); PLATELET COUNT 102 x10^3/uL (140-400); RED BLOOD COUNT 2.74 x10^6/uL (4.30-5.70); RED CELL DISTRIBUTION WIDTH 18.4 % (11.5-14.5); WHITE BLOOD COUNT 5.7 x10^3/uL (4.0-11.0)
[2018-07-08 06:03] LABS: PROTHROMBIN TIME PATIENT 23.8 SEC (11.7-14.0)
[2018-07-08 06:07] LABS: CALCIUM 9.4 mg/dL (8.5-10.1); CREATININE 1.1 mg/dL (0.7-1.3); GFR 68.8; POTASSIUM 5.1 mmol/L (3.5-5.1)
--- NOTE | 2018-07-08 07:47 | PDOC ---
SUBJECTIVE ROS F/up for ^K Pt doing same overall OBJECTIVE Vital Signs Vital Signs Date Time Temp Pulse Resp B/P (MAP) Pulse Ox O2 Delivery O2 Flow Rate FiO2 07/08/18 03:00 97.7 80 18 144/69 (94) 93 Nasal Cannula 2.0 97.7 I & 0 Intake and Output 07/08/18 06:59 Intake Total 1200 ml Balance 1200 ml Intake Oral 1200 ml # Voids 2 # Bowel Movements 4 PHYSICAL EXAM Physical Exam General Appearance: Obese white gentleman Currently fast asleep and did not awaken Neck: No JVD or JVP Chest: CTA Sky Heart: S1 S2 Abdomen - Soft NTND Extremities - + Edema DIAGNOSIS/ASSESSMENT Assessment & Plan Acute kidney injury: Now resolved Hyperkalemia: Now resolved. If patient is felt to require Kaiden inhibitors, would recommend a thiazide diuretic along with it or he be on a strict renal diet. Recommend close monitoring of potassium hereafter COMMENT/RELEVANT DATA Meds Current Medications Medications (Trade) Dose Ordered Sig/Katiana Start Time Stop Time Status Last Admin Dose Admin Acetaminophen/ Hydrocodone Bitart (Lortab 5/325) 2 tab PRN Q8HRS PRN 07/06/18 13:30 07/07/18 11:32 2 TAB Allopurinol (Zyloprim) 200 mg DAILY 07/07/18 09:00 07/07/18 09:51 200 MG Atorvastatin Calcium (Lipitor) 40 mg QHS 07/06/18 21:00 07/07/18 21:05 40 MG Calcium Gluconate (Calcium Gluconate) 1,000 mg 1X ONCE 07/06/18 09:45 07/06/18 09:46 DC 07/06/18 11:02 1,000 MG Cetirizine HCl (ZyrTEC) 10 mg DAILY 07/07/18 09:00 07/07/18 08:00 10 MG Dextrose (Dextrose 50%-Water Syringe) 25 gm 1X ONCE 07/07/18 10:00 07/07/18 10:01 DC 07/07/18 10:02 25 GM Dextrose (Dextrose 25% Syringe) 10 ml 1X ONCE 07/07/18 09:45 07/07/18 09:46 UNV Docusate Sodium (Colace) 100 mg BID 07/06/18 21:00 07/07/18 21:05 100 MG Furosemide (Lasix) 20 mg DAILY 07/07/18 09:00 07/07/18 07:58 20 MG Gabapentin (Neurontin) 600 mg DAILY08 07/07/18 08:00 07/07/18 07:58 600 MG Insulin Glargine (Lantus) 20 units BID 07/06/18 21:00 07/07/18 21:11 20 UNITS Insulin Human Lispro (HumaLOG) 0-9 UNITS TIDWMEALS 07/07/18 12:00 Insulin Human Regular (HumuLIN R VIAL) 10 unit 1X ONCE 07/07/18 09:45 07/07/18 09:46 DC 07/07/18 10:02 10 UNIT Lactulose (Lactulose) 20 gm BID 07/06/18 21:00 07/07/18 21:04 20 GM Metformin HCl (Glucophage) 1,000 mg BIDWMEALS 07/06/18 17:00 07/07/18 17:23 1,000 MG Morphine Sulfate (Morphine Sulfate) 2 mg PRN Q2HR PRN 07/06/18 09:45 07/07/18 09:44 DC Morphine Sulfate (Ms Contin) 30 mg BID 07/06/18 21:00 07/07/18 21:05 30 MG Multi-Ingredient Ointment (Analgesic [place]) 1 ana PRN TID PRN 07/06/18 15:00 Non-Formulary Medication (Cabozantinib S-Malate (Cabometyx)) 60 mg HS 07/06/18 21:00 UNV Ondansetron HCl (Zofran Odt) 4 mg PRN Q8HRS PRN 07/06/18 15:00 Ondansetron HCl (Zofran) 4 mg PRN Q8HRS PRN 07/06/18 09:45 07/07/18 09:44 DC Pantoprazole Sodium (Protonix) 40 mg DAILYAC 07/07/18 07:30 07/07/18 07:57 40 MG Multivit/ Folic Acid/Iron (Multivitamin ) 1 tab DAILY 07/07/18 09:00 07/07/18 07:57 1 TAB Sennosides (Senna) 17.2 mg BID 07/06/18 21:00 07/07/18 21:05 17.2 MG Sodium Polystyrene Sulfonate (Kayexalate) 15 gm 1X ONCE 07/07/18 09:45 07/07/18 09:46 DC 07/07/18 09:51 15 GM Sodium Bicarbonate (Sodium Bicarb Adult 8.4% Syr) 50 meq 1X ONCE 07/06/18 09:45 07/06/18 09:46 DC 07/06/18 11:04 50 MEQ Sodium Chloride 1,000 ml @ 100 mls/hr Q10H 07/06/18 09:44 07/06/18 13:43 DC 07/06/18 09:44 100 MLS/HR Tamsulosin HCl (Flomax) 0.4 mg DAILY 07/07/18 09:00 07/07/18 08:01 0.4 MG Warfarin Sodium (Coumadin - No Dose Today) 1 each 1X WARF ONCE 07/07/18 16:00 07/07/18 16:01 DC Warfarin Sodium (Coumadin Per Pharmacy) 1 each PRN DAILY PRN 07/07/18 08:30 Warfarin Sodium (Coumadin) 6 mg DAILY16 07/07/18 16:00 07/07/18 16:00 DC Lab Laboratory Tests Test 07/07/18 10:30 07/07/18 11:14 07/07/18 15:15 07/07/18 17:06 Prothrombin Time 30.4 SEC (11.7-14.0) Prothromb Time International Ratio 2.9 (0.8-1.1) Glucose (Fingerstick) 118 mg/dL (70-99) 124 mg/dL (70-99) Potassium Level 5.0 mmol/L (3.5-5.1) Test 07/07/18 20:46 07/08/18 05:20 Glucose (Fingerstick) 121 mg/dL (70-99) White Blood Count 5.7 x10^3/uL (4.0-11.0) Red Blood Count 2.74 x10^6/uL (4.30-5.70) Hemoglobin 8.1 g/dL (13.0-17.5) Hematocrit 24.9 % (39.0-53.0) Mean Corpuscular Volume 91 fL (79-100) Mean Corpuscular Hemoglobin 30 pg (25-35) Mean Corpuscular Hemoglobin Concent 33 g/dL (31-37) Red Cell Distribution Width 18.4 % (11.5-14.5) Platelet Count 102 x10^3/uL (140-400) Neutrophils (%) (Auto) 38 % (31-73) Lymphocytes (%) (Auto) 49 % (24-48) Monocytes (%) (Auto) 10 % (0-9) Eosinophils (%) (Auto) 3 % (0-3) Basophils (%) (Auto) 0 % (0-3) Neutrophils # (Auto) 2.2 x10^3uL (1.8-7.7) Lymphocytes # (Auto) 2.8 x10^3/uL (1.0-4.8) Monocytes # (Auto) 0.6 x10^3/uL (0.0-1.1) Eosinophils # (Auto) 0.2 x10^3/uL (0.0-0.7) Basophils # (Auto) 0.0 x10^3/uL (0.0-0.2) Prothrombin Time 23.8 SEC (11.7-14.0) Prothromb Time International Ratio 2.2 (0.8-1.1) Sodium Level 142 mmol/L (136-145) Potassium Level 5.1 mmol/L (3.5-5.1) Chloride Level 105 mmol/L (98-107) Carbon Dioxide Level 30 mmol/L (21-32) Anion Gap 7 (6-14) Blood Urea Nitrogen 16 mg/dL (8-26) Creatinine 1.1 mg/dL (0.7-1.3) Estimated GFR (Cockcroft-Gault) 68.8 Glucose Level 80 mg/dL (70-99) Calcium Level 9.4 mg/dL (8.5-10.1) Results All relevant outside records, renal labs, imaging studies, telemetry/EKG's were reviewed. RACHEL MARSHALL MD Jul 08, 2018 07:47
[2018-07-08 07:57] VITALS: BP 128/60
[2018-07-08] MEDS: INSULIN LISPRO 300 UNITS/3 ML INSULN.PEN. SQ SCH ×6 (08:00→17:23)
[2018-07-08] MEDS: FUROSEMIDE 20 MG TABLET PO SCH (08:14)
[2018-07-08] MEDS: TAMSULOSIN 0.4 MG CAP.ER.24H. PO SCH (08:14)
[2018-07-08] MEDS: metFORMIN 500 MG TABLET PO SCH ×2 (08:14→17:17)
[2018-07-08] MEDS: GABAPENTIN 300 MG CAPSULE. PO SCH ×2 (08:14→21:26)
[2018-07-08] MEDS: ALLOPURINOL 100 MG TABLET. PO SCH (08:14)
[2018-07-08] MEDS: PRENATAL MULTIVITAMIN TABLET. PO SCH (08:14)
[2018-07-08] MEDS: LACTULOSE 20 GM/30 ML SOLUTION. PO SCH ×2 (08:15→21:26)
[2018-07-08] MEDS: MORPHINE ER 30 MG TABLET.ER PO SCH ×2 (08:15→21:28)
[2018-07-08] MEDS: PANTOPRAZOLE 40 MG TABLET.DR. PO SCH (08:15)
[2018-07-08] MEDS: DOCUSATE SODIUM 100 MG CAPSULE. PO SCH ×2 (08:15→21:26)
[2018-07-08] MEDS: CETIRIZINE HCL 10 MG TABLET. PO SCH (08:15)
[2018-07-08] MEDS: SENNOSIDES 8.6 MG TABLET PO SCH ×2 (08:15→21:30)
[2018-07-08] MEDS: INSULIN GLARGINE 300 UNITS/3 ML INSULN.PEN. SQ SCH ×2 (09:00→21:30)
[2018-07-08 10:29] VITALS: BP 152/66
--- NOTE | 2018-07-08 11:27 | PDOC ---
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 Tilley History Occlusive thrombus left femoral vein-possibly remnant of previous DVT on that same leg - on warf - supratherapeutic INR, 3.4-no bleeding History epistaxis and hematemesis Diabetes moderate control Hypertension controlled Obesity BMI 38 Incarcerated release date July 2018 Moderate PCM History thrombocytopenia platelets 136 range History of Present Illness History of Present Illness KnOwn to me, but his readmission is for hyperkalemia not from leg wounds or thrombocytopenia or bleeding or from his other chronic issues/signif past medica l hx Hyperkalemia has resolved Labs look great Renal has signed off Blood pressure on the high side-per renal note they would recommend LAISHA inhibitor with diuretic Labile diabetes Currently on Lantus 20 daily at bedtime Blood sugar this morning 80s, did get some symptoms I advised midnight snack to prevent morning hypoglycemia which he already knows how to do PLAN: Wound care to see on Monday but actually the wounds look great Then [facility] July 2019 TRail of laisha inhib and diuretic for high BP Vitals Vitals Vital Signs Date Time Temp Pulse Resp B/P (MAP) Pulse Ox O2 Delivery O2 Flow Rate FiO2 07/08/18 10:29 98.6 92 20 152/66 (94) 96 Room Air 98.6 07/08/18 08:15 2.0 Physical Exam General: Alert, Oriented X3, Cooperative Heart: Regular rate, Normal S1 Lungs: Clear Abdomen: Normal bowel sounds, Soft Extremities: No clubbing, No cyanosis, No edema Skin: Other (bilateral legs are wrapped, no wound VAC) Labs LABS Laboratory Tests Test 07/07/18 15:15 07/07/18 17:06 07/07/18 20:46 07/08/18 05:20 Potassium Level 5.0 mmol/L (3.5-5.1) 5.1 mmol/L (3.5-5.1) Glucose (Fingerstick) 124 mg/dL (70-99) 121 mg/dL (70-99) White Blood Count 5.7 x10^3/uL (4.0-11.0) Red Blood Count 2.74 x10^6/uL (4.30-5.70) Hemoglobin 8.1 g/dL (13.0-17.5) Hematocrit 24.9 % (39.0-53.0) Mean Corpuscular Volume 91 fL (79-100) Mean Corpuscular Hemoglobin 30 pg (25-35) Mean Corpuscular Hemoglobin Concent 33 g/dL (31-37) Red Cell Distribution Width 18.4 % (11.5-14.5) Platelet Count 102 x10^3/uL (140-400) Neutrophils (%) (Auto) 38 % (31-73) Lymphocytes (%) (Auto) 49 % (24-48) Monocytes (%) (Auto) 10 % (0-9) Eosinophils (%) (Auto) 3 % (0-3) Basophils (%) (Auto) 0 % (0-3) Neutrophils # (Auto) 2.2 x10^3uL (1.8-7.7) Lymphocytes # (Auto) 2.8 x10^3/uL (1.0-4.8) Monocytes # (Auto) 0.6 x10^3/uL (0.0-1.1) Eosinophils # (Auto) 0.2 x10^3/uL (0.0-0.7) Basophils # (Auto) 0.0 x10^3/uL (0.0-0.2) Prothrombin Time 23.8 SEC (11.7-14.0) Prothromb Time International Ratio 2.2 (0.8-1.1) Sodium Level 142 mmol/L (136-145) Chloride Level 105 mmol/L (98-107) Carbon Dioxide Level 30 mmol/L (21-32) Anion Gap 7 (6-14) Blood Urea Nitrogen 16 mg/dL (8-26) Creatinine 1.1 mg/dL (0.7-1.3) Estimated GFR (Cockcroft-Gault) 68.8 Glucose Level 80 mg/dL (70-99) Calcium Level 9.4 mg/dL (8.5-10.1) Test 07/08/18 08:13 Glucose (Fingerstick) 78 mg/dL (70-99) Review of Systems Review of Systems A 14 point ROS was completed with the following noted as positive: Other systems reviewed and negative. \CONSTITUTIONAL: No fever or chills EYES: No recent changes SKIN: No rash or itching CARDIOVASCULAR: No chest pain, syncope, palpitations, or edema RESPIRATORY: No SOB or cough GASTROINTESTINAL: No nausea, vomiting or abdominal pain NEUROLOGICAL: No headaches or weakness ENDOCRINE: No cold or heat intolerance GENITOURINARY: No urgency or frequency of urination MUSCULOSKELETAL: No back pain or joint pain LYMPHATICS: No enlarged lymph nodes PSYCHIATRIC: No anxiety or depression Assessment and Plan Assessmemt and Plan Problems Medical Problems: (1) Acute kidney injury Status: Acute (2) Hyperkalemia Status: Acute Comment Review of Relevant I have reviewed the following items anjana (where applicable) has been applied. Labs Laboratory Tests Test 07/06/18 13:00 07/06/18 15:14 07/06/18 16:40 07/06/18 20:58 Nasal Screen MRSA (PCR) Negative (Negative) Potassium Level 6.3 mmol/L (3.5-5.1) Glucose (Fingerstick) 158 mg/dL (70-99) 157 mg/dL (70-99) Test 07/07/18 05:30 07/07/18 07:42 07/07/18 10:30 07/07/18 11:14 White Blood Count 5.4 x10^3/uL (4.0-11.0) Red Blood Count 2.59 x10^6/uL (4.30-5.70) Hemoglobin 7.7 g/dL (13.0-17.5) Hematocrit 23.7 % (39.0-53.0) Mean Corpuscular Volume 92 fL (79-100) Mean Corpuscular Hemoglobin 30 pg (25-35) Mean Corpuscular Hemoglobin Concent 33 g/dL (31-37) Red Cell Distribution Width 18.6 % (11.5-14.5) Platelet Count 91 x10^3/uL (140-400) Neutrophils (%) (Auto) 38 % (31-73) Lymphocytes (%) (Auto) 48 % (24-48) Monocytes (%) (Auto) 11 % (0-9) Eosinophils (%) (Auto) 2 % (0-3) Basophils (%) (Auto) 1 % (0-3) Neutrophils # (Auto) 2.1 x10^3uL (1.8-7.7) Lymphocytes # (Auto) 2.6 x10^3/uL (1.0-4.8) Monocytes # (Auto) 0.6 x10^3/uL (0.0-1.1) Eosinophils # (Auto) 0.1 x10^3/uL (0.0-0.7) Basophils # (Auto) 0.0 x10^3/uL (0.0-0.2) Sodium Level 141 mmol/L (136-145) Potassium Level 5.9 mmol/L (3.5-5.1) Chloride Level 107 mmol/L (98-107) Carbon Dioxide Level 28 mmol/L (21-32) Anion Gap 6 (6-14) Blood Urea Nitrogen 22 mg/dL (8-26) Creatinine 1.1 mg/dL (0.7-1.3) Estimated GFR (Cockcroft-Gault) 68.8 Glucose Level 144 mg/dL (70-99) Calcium Level 9.0 mg/dL (8.5-10.1) Glucose (Fingerstick) 123 mg/dL (70-99) 118 mg/dL (70-99) Prothrombin Time 30.4 SEC (11.7-14.0) Prothromb Time International Ratio 2.9 (0.8-1.1) Test 07/07/18 15:15 07/07/18 17:06 07/07/18 20:46 07/08/18 05:20 Potassium Level 5.0 mmol/L (3.5-5.1) 5.1 mmol/L (3.5-5.1) Glucose (Fingerstick) 124 mg/dL (70-99) 121 mg/dL (70-99) White Blood Count 5.7 x10^3/uL (4.0-11.0) Red Blood Count 2.74 x10^6/uL (4.30-5.70) Hemoglobin 8.1 g/dL (13.0-17.5) Hematocrit 24.9 % (39.0-53.0) Mean Corpuscular Volume 91 fL (79-100) Mean Corpuscular Hemoglobin 30 pg (25-35) Mean Corpuscular Hemoglobin Concent 33 g/dL (31-37) Red Cell Distribution Width 18.4 % (11.5-14.5) Platelet Count 102 x10^3/uL (140-400) Neutrophils (%) (Auto) 38 % (31-73) Lymphocytes (%) (Auto) 49 % (24-48) Monocytes (%) (Auto) 10 % (0-9) Eosinophils (%) (Auto) 3 % (0-3) Basophils (%) (Auto) 0 % (0-3) Neutrophils # (Auto) 2.2 x10^3uL (1.8-7.7) Lymphocytes # (Auto) 2.8 x10^3/uL (1.0-4.8) Monocytes # (Auto) 0.6 x10^3/uL (0.0-1.1) Eosinophils # (Auto) 0.2 x10^3/uL (0.0-0.7) Basophils # (Auto) 0.0 x10^3/uL (0.0-0.2) Prothrombin Time 23.8 SEC (11.7-14.0) Prothromb Time International Ratio 2.2 (0.8-1.1) Sodium Level 142 mmol/L (136-145) Chloride Level 105 mmol/L (98-107) Carbon Dioxide Level 30 mmol/L (21-32) Anion Gap 7 (6-14) Blood Urea Nitrogen 16 mg/dL (8-26) Creatinine 1.1 mg/dL (0.7-1.3) Estimated GFR (Cockcroft-Gault) 68.8 Glucose Level 80 mg/dL (70-99) Calcium Level 9.4 mg/dL (8.5-10.1) Test 07/08/18 08:13 Glucose (Fingerstick) 78 mg/dL (70-99) Laboratory Tests Test 07/07/18 15:15 07/07/18 17:06 07/07/18 20:46 07/08/18 05:20 Potassium Level 5.0 mmol/L (3.5-5.1) 5.1 mmol/L (3.5-5.1) Glucose (Fingerstick) 124 mg/dL (70-99) 121 mg/dL (70-99) White Blood Count 5.7 x10^3/uL (4.0-11.0) Red Blood Count 2.74 x10^6/uL (4.30-5.70) Hemoglobin 8.1 g/dL (13.0-17.5) Hematocrit 24.9 % (39.0-53.0) Mean Corpuscular Volume 91 fL (79-100) Mean Corpuscular Hemoglobin 30 pg (25-35) Mean Corpuscular Hemoglobin Concent 33 g/dL (31-37) Red Cell Distribution Width 18.4 % (11.5-14.5) Platelet Count 102 x10^3/uL (140-400) Neutrophils (%) (Auto) 38 % (31-73) Lymphocytes (%) (Auto) 49 % (24-48) Monocytes (%) (Auto) 10 % (0-9) Eosinophils (%) (Auto) 3 % (0-3) Basophils (%) (Auto) 0 % (0-3) Neutrophils # (Auto) 2.2 x10^3uL (1.8-7.7) Lymphocytes # (Auto) 2.8 x10^3/uL (1.0-4.8) Monocytes # (Auto) 0.6 x10^3/uL (0.0-1.1) Eosinophils # (Auto) 0.2 x10^3/uL (0.0-0.7) Basophils # (Auto) 0.0 x10^3/uL (0.0-0.2) Prothrombin Time 23.8 SEC (11.7-14.0) Prothromb Time International Ratio 2.2 (0.8-1.1) Sodium Level 142 mmol/L (136-145) Chloride Level 105 mmol/L (98-107) Carbon Dioxide Level 30 mmol/L (21-32) Anion Gap 7 (6-14) Blood Urea Nitrogen 16 mg/dL (8-26) Creatinine 1.1 mg/dL (0.7-1.3) Estimated GFR (Cockcroft-Gault) 68.8 Glucose Level 80 mg/dL (70-99) Calcium Level 9.4 mg/dL (8.5-10.1) Test 07/08/18 08:13 Glucose (Fingerstick) 78 mg/dL (70-99) Medications Current Medications Sodium Bicarbonate (Sodium Bicarb Adult 8.4% Syr) 50 meq 1X ONCE IV Last administered on 07/06/18at 11:04; Start 07/06/18 at 09:45; Stop 07/06/18 at 09:46; Status DC Calcium Gluconate (Calcium Gluconate) 1,000 mg 1X ONCE IVP Last administered on 07/06/18 11:02; Start 07/06/18 at 09:45; Stop 07/06/18 at 09:46; Status DC Insulin Human Regular (HumuLIN R VIAL) 10 unit 1X ONCE IV Last administered on 07/06/18 11:08; Start 07/06/18 at 09:45; Stop 07/06/18 at 09:46; Status DC Dextrose (Dextrose 50%-Water Syringe) 25 gm 1X ONCE IV Last administered on 07/06/18 11:03; Start 07/06/18 at 09:45; Stop 07/06/18 at 09:48; Status DC Ondansetron HCl (Zofran) 4 mg PRN Q8HRS PRN IV NAUSEA/VOMITING; Start 07/06/18 at 09:45; Stop 07/07/18 at 09:44; Status DC Morphine Sulfate (Morphine Sulfate) 2 mg PRN Q2HR PRN IV PAIN; Start 07/06/18 at 09:45; Stop 07/07/18 at 09:44; Status DC Sodium Chloride 1,000 ml @ 100 mls/hr Q10H IV Last administered on 07/06/18at 09:44; Start 07/06/18 at 09:44; Stop 07/06/18 at 13:43; Status DC Allopurinol (Zyloprim) 200 mg DAILY PO Last administered on 07/08/18 08:14; Start 07/07/18 at 09:00 Atorvastatin Calcium (Lipitor) 40 mg QHS PO Last administered on 07/07/18 21:05; Start 07/06/18 at 21:00 Cetirizine HCl (ZyrTEC) 10 mg DAILY PO Last administered on 07/08/18 08:15; Start 07/07/18 at 09:00 Docusate Sodium (Colace) 100 mg BID PO Last administered on 07/08/18 08:15; Start 07/06/18 at 21:00 Furosemide (Lasix) 20 mg DAILY PO Last administered on 07/08/18 08:14; Start 07/07/18 at 09:00 Gabapentin (Neurontin) 900 mg HS PO Last administered on 07/07/18 21:04; Start 07/06/18 at 21:00 Acetaminophen/ Hydrocodone Bitart (Lortab 5/325) 2 tab PRN Q8HRS PRN PO MODERATE PAIN Last administered on 07/07/18 11:32; Start 07/06/18 at 13:30 Insulin Human Lispro (HumaLOG) 4 units TIDWMEALS SQ Last administered on 07/07/18 17:26; Start 07/06/18 at 17:00 Insulin Human Regular (HumuLIN R VIAL) 100 unit SSI SQ ; Start 07/06/18 at 13:30; Status UNV Lactulose (Lactulose) 20 gm BID PO Last administered on 07/08/18 08:15; Start 07/06/18 at 21:00 Morphine Sulfate (Ms Contin) 30 mg BID PO Last administered on 07/08/18 08:15; Start 07/06/18 at 21:00 Tamsulosin HCl (Flomax) 0.4 mg DAILY PO Last administered on 07/08/18 08:14; Start 07/07/18 at 09:00 Non-Formulary Medication (Cabozantinib S-Malate (Cabometyx)) 60 mg HS PO ; Start 07/06/18 at 21:00; Status UNV Gabapentin (Neurontin) 600 mg DAILY08 PO Last administered on 07/08/18 08:14; Start 07/07/18 at 08:00 Metformin HCl (Glucophage) 1,000 mg BIDWMEALS PO Last administered on 07/08/18 08:14; Start 07/06/18 at 17:00 Multi-Ingredient Ointment (Analgesic Aurora) 1 yanira TID TP ; Start 07/06/18 at 14:00; Stop 07/06/18 at 14:55; Status DC Insulin Glargine (Lantus) 20 units BID SQ Last administered on 07/07/18 21:11; Start 07/06/18 at 21:00 Ondansetron HCl (Zofran Odt) 4 mg Q8HRS PO ; Start 07/06/18 at 14:00; Stop 07/06/18 at 14:55; Status DC Pantoprazole Sodium (Protonix) 40 mg DAILYAC PO Last administered on 07/08/18 08:15; Start 07/07/18 at 07:30 Multivit/ Folic Acid/Iron (Multivitamin ) 1 tab DAILY PO Last administered on 07/08/18at 08:14; Start 07/07/18 at 09:00 Sennosides (Senna) 17.2 mg BID PO Last administered on 07/08/18at 08:15; Start 07/06/18 at 21:00 Warfarin Sodium (Coumadin) 6 mg DAILY16 PO ; Start 07/07/18 at 16:00; Stop 07/07/18 at 16:00; Status DC Insulin Human Lispro (HumaLOG) 0-5 UNITS TIDWMEALS SQ ; Start 07/06/18 at 17:00; Stop 07/07/18 at 08:25; Status DC Dextrose (Dextrose 50%-Water Syringe) 12.5 gm PRN Q15MIN PRN IV SEE COMMENTS; Start 07/06/18 at 14:15 Multi-Ingredient Ointment (Analgesic Aurora) 1 yanira PRN TID PRN TP PAIN; Start 07/06/18 at 15:00 Ondansetron HCl (Zofran Odt) 4 mg PRN Q8HRS PRN PO NAUSEA/VOMITING; Start 07/06/18 at 15:00 Dextrose (Dextrose 50%-Water Syringe) 25 gm 1X ONCE IV ; Start 07/06/18 at 16:00; Stop 07/06/18 at 16:01; Status DC Insulin Human Regular (HumuLIN R VIAL) 10 unit 1X ONCE IV ; Start 07/06/18 at 16:00; Stop 07/06/18 at 16:01; Status DC Sodium Polystyrene Sulfonate (Kayexalate) 60 gm 1X ONCE PO Last administered on 07/06/18at 19:45; Start 07/06/18 at 19:45; Stop 07/06/18 at 19:46; Status DC Insulin Human Lispro (HumaLOG) 0-9 UNITS TIDWMEALS SQ ; Start 07/07/18 at 12:00 Dextrose (Dextrose 50%-Water Syringe) 12.5 gm PRN Q15MIN PRN IV SEE COMMENTS; Start 07/07/18 at 08:30 Warfarin Sodium (Coumadin - No Dose Today) 1 each 1X WARF ONCE MC ; Start 07/07/18 at 16:00; Stop 07/07/18 at 16:01; Status DC Warfarin Sodium (Coumadin Per Pharmacy) 1 each PRN DAILY PRN MC SEE COMMENTS; Start 07/07/18 at 08:30 Sodium Polystyrene Sulfonate (Kayexalate) 15 gm 1X ONCE PO Last administered on 07/07/18at 09:51; Start 07/07/18 at 09:45; Stop 07/07/18 at 09:46; Status DC Dextrose (Dextrose 25% Syringe) 10 ml 1X ONCE IV ; Start 07/07/18 at 09:45; Stop 07/07/18 at 09:46; Status UNV Insulin Human Regular (HumuLIN R VIAL) 10 unit 1X ONCE IV Last administered on 07/07/18at 10:02; Start 07/07/18 at 09:45; Stop 07/07/18 at 09:46; Status DC Dextrose (Dextrose 50%-Water Syringe) 25 gm 1X ONCE IV Last administered on 07/07/18at 10:02; Start 07/07/18 at 10:00; Stop 07/07/18 at 10:01; Status DC Active Scripts Active Bacitracin-Polymyxin Ointment (Bacitracin/Polymyxin B Sulfate) 28.35 Gm Oint...g. 1 Yanira TP TID MDD 1 Humalog (Insulin Lispro) 100 Unit/1 Ml Insuln.pen 4 Units SQ TIDWMEALS MDD 1 Gabapentin 300 Mg Capsule 900 Mg PO HS MDD 1 Reported Zofran (Ondansetron Hcl) 4 Mg Tablet 1 Tab PO Q8HRS Warfarin Sodium 6 Mg Tablet 6 Mg PO DAILY Protonix (Pantoprazole Sodium) 20 Mg Tablet.dr 40 Mg PO DAILY Plus Tablet (Pnv With Ca,No.72/Iron/Fa) 1 Each Tablet 1 Tab PO DAILY Hydrocodone-Apap 5-325 (Hydrocodone Bit/Acetaminophen) 1 Tab Tablet 2 Tab PO PRN Q8HRS PRN Morphine Sulfate Er (Morphine Sulfate) 30 Mg Tablet.er 1 Tab PO BID Lactulose 20 Gm/30 Ml Solution 20 Gm PO BID Docusate Sodium 100 Mg Capsule 1 Cap PO BID Cabometyx (Cabozantinib S-Malate) 60 Mg Tablet 60 Mg PO HS Allopurinol 100 Mg Tablet 200 Mg PO DAILY Muscle Rub Cream (Methyl Salicylate/Menthol) 113 Gm Cream..g. 1 Gm TP TID Proair Hfa Inhaler (Albuterol Sulfate) 8.5 Gm Hfa.aer.ad 1 Puff INH PRN Q6HRS PRN Zyrtec (Cetirizine Hcl) 10 Mg Tablet 1 Tab PO DAILY Atorvastatin Calcium 40 Mg Tablet 1 Tab PO QHS Metformin Hcl 1,000 Mg Tablet 1,000 Mg PO BIDWMEALS Gabapentin 600 Mg Tablet 600 Mg PO DAILY08 Flomax (Tamsulosin Hcl) 0.4 Mg Cap.er.24h 1 Cap PO DAILY Humulin R (Insulin Regular, Human) 100 Unit/1 Ml Vial 100 Unit IJ TID SLIDING SCALE Furosemide 20 Mg Tablet 1 Tab PO DAILY Novolin N (Nph, Human Insulin Isophane) 100 Unit/1 Ml Vial 20 Unit SQ BID Senna (Sennosides) 8.6 Mg Tablet 2 Mg PO BID Vitals/I & O Vital Sign - Last 24 Hours 07/07/18 07/07/18 07/07/18 07/07/18 11:32 12:00 12:30 14:45 Temp 98.2 98.2 Pulse 89 Resp 18 B/P (MAP) 149/64 (92) Pulse Ox 98 98 98 98 O2 Delivery Room Air Nasal Cannula Nasal Cannula Nasal Cannula O2 Flow Rate 2.0 2.0 2.0 2.0 07/07/18 07/07/18 07/07/18 07/07/18 19:00 20:00 21:05 23:00 Temp 98.4 98.2 98.4 98.2 Pulse 83 85 Resp 18 18 18 B/P (MAP) 138/62 (87) 129/60 (83) Pulse Ox 97 97 O2 Delivery Nasal Cannula Room Air Nasal Cannula Nasal Cannula O2 Flow Rate 2.0 2.0 2.0 2.0 07/08/18 07/08/18 07/08/18 07/08/18 03:00 07:40 07:57 08:15 Temp 97.7 98.1 97.7 98.1 Pulse 80 84 Resp 18 18 B/P (MAP) 144/69 (94) 128/60 (82) Pulse Ox 93 97 97 O2 Delivery Nasal Cannula Nasal Cannula Nasal Cannula Room Air O2 Flow Rate 2.0 2.0 2.0 2.0 07/08/18 10:29 Temp 98.6 98.6 Pulse 92 Resp 20 B/P (MAP) 152/66 (94) Pulse Ox 96 O2 Delivery Room Air Intake and Output 07/07/18 07/07/18 07/08/18 15:00 23:00 07:00 Intake Total 360 ml 440 ml 400 ml Balance 360 ml 440 ml 400 ml SHAUN JOSE MD Jul 08, 2018 11:27
[2018-07-08] MEDS: hydroCHLOROthiazide 12.5 MG CAPSULE PO SCH (12:10)
[2018-07-08] MEDS: LISINOPRIL 10 MG TABLET PO SCH (12:10)
[2018-07-08 14:50] VITALS: BP 136/52
--- NOTE | 2018-07-08 14:50 | NUR ---
ATTEMPTED TO CHANGE WOUND DRESSING. HFB NOT AVAILABLE ON UNIT. LEFT HFB IN PLACE AND NEW ABD, CURLEX, AND COBAN, AND MEDIGRIPS REPLACED. WOUND CARE NOTE SAID THEY WOULD CHANGE DRESSING ON MONDAY.
[2018-07-08] MEDS ORDERED: WARFARIN 3 MG TABLET. PO ONE (16:00)
[2018-07-08] MEDS: HYDROcodone/APAP 5/325MG 1 TAB TABLET PO PRN (17:17)
[2018-07-08 19:30] VITALS: BP 127/58
[2018-07-08] MEDS: ATORVASTATIN CALCIUM 40 MG TABLET. PO SCH (21:26)
[2018-07-08 23:36] VITALS: BP 124/56
[2018-07-09 03:32] VITALS: BP 130/61
[2018-07-09 07:39] VITALS: BP 113/54
[2018-07-09] MEDS: INSULIN LISPRO 300 UNITS/3 ML INSULN.PEN. SQ SCH ×6 (08:00→17:35)
--- NOTE | 2018-07-09 08:16 | PDOC ---
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 Tilley History Occlusive thrombus left femoral vein-possibly remnant of previous DVT on that same leg - on warf - supratherapeutic INR, 3.4-no bleeding History epistaxis and hematemesis Diabetes moderate control Hypertension controlled Obesity BMI 38 Incarcerated release date July 2018 Moderate PCM History thrombocytopenia platelets 136 range History of Present Illness History of Present Illness Admission is for hyperkalemia not from leg wounds or thrombocytopenia or bleeding or from his other chronic issues/signif past medical hx Hyperkalemia has resolved, Labs look great, Renal has signed off Blood pressure on the high side-per renal note they would recommend LAISHA inhibitor with diuretic. Diabetic control is labile. He c/o RLQ and RUQ abdominal pain today PLAN: Wound care to see - looks good Then dc back to longterm He will be released in longterm July 2019 Trial laisha inhib and diuretic for high BP D/c back to longterm after abdominal US and wound care Vitals Vitals Vital Signs Date Time Temp Pulse Resp B/P (MAP) Pulse Ox O2 Delivery O2 Flow Rate FiO2 07/09/18 07:39 98.0 86 18 113/54 (73) 91 Nasal Cannula 2.0 98.0 Physical Exam General: Alert, Oriented X3, Cooperative Heart: Regular rate, Normal S1 Lungs: Clear Abdomen: Normal bowel sounds, Soft Extremities: No clubbing, No cyanosis, No edema Skin: Other (bilateral legs are wrapped, no wound VAC) Labs LABS Laboratory Tests Test 07/08/18 11:50 07/08/18 16:21 07/08/18 20:58 07/09/18 07:12 Glucose (Fingerstick) 138 mg/dL (70-99) 114 mg/dL (70-99) 122 mg/dL (70-99) 112 mg/dL (70-99) Assessment and Plan Assessmemt and Plan Problems Medical Problems: (1) Acute kidney injury Status: Acute (2) Hyperkalemia Status: Acute Comment Review of Relevant I have reviewed the following items anjana (where applicable) has been applied. Labs Laboratory Tests Test 07/07/18 10:30 07/07/18 11:14 07/07/18 15:15 07/07/18 17:06 Prothrombin Time 30.4 SEC (11.7-14.0) Prothromb Time International Ratio 2.9 (0.8-1.1) Glucose (Fingerstick) 118 mg/dL (70-99) 124 mg/dL (70-99) Potassium Level 5.0 mmol/L (3.5-5.1) Test 07/07/18 20:46 07/08/18 05:20 07/08/18 08:13 07/08/18 11:50 Glucose (Fingerstick) 121 mg/dL (70-99) 78 mg/dL (70-99) 138 mg/dL (70-99) White Blood Count 5.7 x10^3/uL (4.0-11.0) Red Blood Count 2.74 x10^6/uL (4.30-5.70) Hemoglobin 8.1 g/dL (13.0-17.5) Hematocrit 24.9 % (39.0-53.0) Mean Corpuscular Volume 91 fL (79-100) Mean Corpuscular Hemoglobin 30 pg (25-35) Mean Corpuscular Hemoglobin Concent 33 g/dL (31-37) Red Cell Distribution Width 18.4 % (11.5-14.5) Platelet Count 102 x10^3/uL (140-400) Neutrophils (%) (Auto) 38 % (31-73) Lymphocytes (%) (Auto) 49 % (24-48) Monocytes (%) (Auto) 10 % (0-9) Eosinophils (%) (Auto) 3 % (0-3) Basophils (%) (Auto) 0 % (0-3) Neutrophils # (Auto) 2.2 x10^3uL (1.8-7.7) Lymphocytes # (Auto) 2.8 x10^3/uL (1.0-4.8) Monocytes # (Auto) 0.6 x10^3/uL (0.0-1.1) Eosinophils # (Auto) 0.2 x10^3/uL (0.0-0.7) Basophils # (Auto) 0.0 x10^3/uL (0.0-0.2) Prothrombin Time 23.8 SEC (11.7-14.0) Prothromb Time International Ratio 2.2 (0.8-1.1) Sodium Level 142 mmol/L (136-145) Potassium Level 5.1 mmol/L (3.5-5.1) Chloride Level 105 mmol/L (98-107) Carbon Dioxide Level 30 mmol/L (21-32) Anion Gap 7 (6-14) Blood Urea Nitrogen 16 mg/dL (8-26) Creatinine 1.1 mg/dL (0.7-1.3) Estimated GFR (Cockcroft-Gault) 68.8 Glucose Level 80 mg/dL (70-99) Calcium Level 9.4 mg/dL (8.5-10.1) Test 07/08/18 16:21 07/08/18 20:58 07/09/18 07:12 Glucose (Fingerstick) 114 mg/dL (70-99) 122 mg/dL (70-99) 112 mg/dL (70-99) Laboratory Tests Test 07/08/18 11:50 07/08/18 16:21 07/08/18 20:58 07/09/18 07:12 Glucose (Fingerstick) 138 mg/dL (70-99) 114 mg/dL (70-99) 122 mg/dL (70-99) 112 mg/dL (70-99) Medications Current Medications Sodium Bicarbonate (Sodium Bicarb Adult 8.4% Syr) 50 meq 1X ONCE IV Last administered on 07/06/18 11:04; Start 07/06/18 at 09:45; Stop 07/06/18 at 09:46; Status DC Calcium Gluconate (Calcium Gluconate) 1,000 mg 1X ONCE IVP Last administered on 07/06/18 11:02; Start 07/06/18 at 09:45; Stop 07/06/18 at 09:46; Status DC Insulin Human Regular (HumuLIN R VIAL) 10 unit 1X ONCE IV Last administered on 07/06/18 11:08; Start 07/06/18 at 09:45; Stop 07/06/18 at 09:46; Status DC Dextrose (Dextrose 50%-Water Syringe) 25 gm 1X ONCE IV Last administered on 07/06/18 11:03; Start 07/06/18 at 09:45; Stop 07/06/18 at 09:48; Status DC Ondansetron HCl (Zofran) 4 mg PRN Q8HRS PRN IV NAUSEA/VOMITING; Start 07/06/18 at 09:45; Stop 07/07/18 at 09:44; Status DC Morphine Sulfate (Morphine Sulfate) 2 mg PRN Q2HR PRN IV PAIN; Start 07/06/18 at 09:45; Stop 07/07/18 at 09:44; Status DC Sodium Chloride 1,000 ml @ 100 mls/hr Q10H IV Last administered on 07/06/18 09:44; Start 07/06/18 at 09:44; Stop 07/06/18 at 13:43; Status DC Allopurinol (Zyloprim) 200 mg DAILY PO Last administered on 07/08/18 08:14; Start 07/07/18 at 09:00 Atorvastatin Calcium (Lipitor) 40 mg QHS PO Last administered on 07/08/18 21:26; Start 07/06/18 at 21:00 Cetirizine HCl (ZyrTEC) 10 mg DAILY PO Last administered on 07/08/18 08:15; Start 07/07/18 at 09:00 Docusate Sodium (Colace) 100 mg BID PO Last administered on 07/08/18 21:26; Start 07/06/18 at 21:00 Furosemide (Lasix) 20 mg DAILY PO Last administered on 07/08/18 08:14; Start 07/07/18 at 09:00 Gabapentin (Neurontin) 900 mg HS PO Last administered on 07/08/18 21:26; Start 07/06/18 at 21:00 Acetaminophen/ Hydrocodone Bitart (Lortab 5/325) 2 tab PRN Q8HRS PRN PO MODERATE PAIN Last administered on 07/08/18 17:17; Start 07/06/18 at 13:30 Insulin Human Lispro (HumaLOG) 4 units TIDWMEALS SQ Last administered on 07/08/18 17:23; Start 07/06/18 at 17:00 Insulin Human Regular (HumuLIN R VIAL) 100 unit SSI SQ ; Start 07/06/18 at 13:30; Status UNV Lactulose (Lactulose) 20 gm BID PO Last administered on 07/08/18 21:26; Start 07/06/18 at 21:00 Morphine Sulfate (Ms Contin) 30 mg BID PO Last administered on 07/08/18 21:28; Start 07/06/18 at 21:00 Tamsulosin HCl (Flomax) 0.4 mg DAILY PO Last administered on 07/08/18 08:14; Start 07/07/18 at 09:00 Non-Formulary Medication (Cabozantinib S-Malate (Cabometyx)) 60 mg HS PO ; Start 07/06/18 at 21:00; Status UNV Gabapentin (Neurontin) 600 mg DAILY08 PO Last administered on 07/08/18 08:14; Start 07/07/18 at 08:00 Metformin HCl (Glucophage) 1,000 mg BIDWMEALS PO Last administered on 07/08/18 17:17; Start 07/06/18 at 17:00 Multi-Ingredient Ointment (Analgesic Harshaw) 1 yanira TID TP ; Start 07/06/18 at 14:00; Stop 07/06/18 at 14:55; Status DC Insulin Glargine (Lantus) 20 units BID SQ Last administered on 07/08/18 21:30; Start 07/06/18 at 21:00 Ondansetron HCl (Zofran Odt) 4 mg Q8HRS PO ; Start 07/06/18 at 14:00; Stop 07/06/18 at 14:55; Status DC Pantoprazole Sodium (Protonix) 40 mg DAILYAC PO Last administered on 07/08/18 08:15; Start 07/07/18 at 07:30 Multivit/ Folic Acid/Iron (Multivitamin ) 1 tab DAILY PO Last administered on 07/08/18at 08:14; Start 07/07/18 at 09:00 Sennosides (Senna) 17.2 mg BID PO Last administered on 07/08/18 21:30; Start 07/06/18 at 21:00 Warfarin Sodium (Coumadin) 6 mg DAILY16 PO ; Start 07/07/18 at 16:00; Stop 07/07/18 at 16:00; Status DC Insulin Human Lispro (HumaLOG) 0-5 UNITS TIDWMEALS SQ ; Start 07/06/18 at 17:00; Stop 07/07/18 at 08:25; Status DC Dextrose (Dextrose 50%-Water Syringe) 12.5 gm PRN Q15MIN PRN IV SEE COMMENTS; Start 07/06/18 at 14:15 Multi-Ingredient Ointment (Analgesic Harshaw) 1 yanira PRN TID PRN TP PAIN; Start 07/06/18 at 15:00 Ondansetron HCl (Zofran Odt) 4 mg PRN Q8HRS PRN PO NAUSEA/VOMITING; Start 07/06/18 at 15:00 Dextrose (Dextrose 50%-Water Syringe) 25 gm 1X ONCE IV ; Start 07/06/18 at 16:00; Stop 07/06/18 at 16:01; Status DC Insulin Human Regular (HumuLIN R VIAL) 10 unit 1X ONCE IV ; Start 07/06/18 at 16:00; Stop 07/06/18 at 16:01; Status DC Sodium Polystyrene Sulfonate (Kayexalate) 60 gm 1X ONCE PO Last administered on 07/06/18at 19:45; Start 07/06/18 at 19:45; Stop 07/06/18 at 19:46; Status DC Insulin Human Lispro (HumaLOG) 0-9 UNITS TIDWMEALS SQ ; Start 07/07/18 at 12:00 Dextrose (Dextrose 50%-Water Syringe) 12.5 gm PRN Q15MIN PRN IV SEE COMMENTS; Start 07/07/18 at 08:30; Stop 07/08/18 at 16:35; Status DC Warfarin Sodium (Coumadin - No Dose Today) 1 each 1X WARF ONCE MC ; Start 07/07/18 at 16:00; Stop 07/07/18 at 16:01; Status DC Warfarin Sodium (Coumadin Per Pharmacy) 1 each PRN DAILY PRN MC SEE COMMENTS Last administered on 07/08/18at 13:20; Start 07/07/18 at 08:30 Sodium Polystyrene Sulfonate (Kayexalate) 15 gm 1X ONCE PO Last administered on 07/07/18at 09:51; Start 07/07/18 at 09:45; Stop 07/07/18 at 09:46; Status DC Dextrose (Dextrose 25% Syringe) 10 ml 1X ONCE IV ; Start 07/07/18 at 09:45; Stop 07/07/18 at 09:46; Status UNV Insulin Human Regular (HumuLIN R VIAL) 10 unit 1X ONCE IV Last administered on 07/07/18at 10:02; Start 07/07/18 at 09:45; Stop 07/07/18 at 09:46; Status DC Dextrose (Dextrose 50%-Water Syringe) 25 gm 1X ONCE IV Last administered on 07/07/18at 10:02; Start 07/07/18 at 10:00; Stop 07/07/18 at 10:01; Status DC Lisinopril (Prinivil) 10 mg DAILY PO Last administered on 07/08/18at 12:10; Start 07/08/18 at 12:00 Hydrochlorothiazide (Microzide) 12.5 mg DAILY PO Last administered on 07/08/18at 12:10; Start 07/08/18 at 12:00 Warfarin Sodium (Coumadin) 6 mg 1X WARF ONCE PO Last administered on 07/08/18at 17:19; Start 07/08/18 at 16:00; Stop 07/08/18 at 16:01; Status DC Active Scripts Active Bacitracin-Polymyxin Ointment (Bacitracin/Polymyxin B Sulfate) 28.35 Gm Oint...g. 1 Yanira TP TID MDD 1 Humalog (Insulin Lispro) 100 Unit/1 Ml Insuln.pen 4 Units SQ TIDWMEALS MDD 1 Gabapentin 300 Mg Capsule 900 Mg PO HS MDD 1 Reported Zofran (Ondansetron Hcl) 4 Mg Tablet 1 Tab PO Q8HRS Warfarin Sodium 6 Mg Tablet 6 Mg PO DAILY Protonix (Pantoprazole Sodium) 20 Mg Tablet.dr 40 Mg PO DAILY Plus Tablet (Pnv With Ca,No.72/Iron/Fa) 1 Each Tablet 1 Tab PO DAILY Hydrocodone-Apap 5-325 (Hydrocodone Bit/Acetaminophen) 1 Tab Tablet 2 Tab PO PRN Q8HRS PRN Morphine Sulfate Er (Morphine Sulfate) 30 Mg Tablet.er 1 Tab PO BID Lactulose 20 Gm/30 Ml Solution 20 Gm PO BID Docusate Sodium 100 Mg Capsule 1 Cap PO BID Cabometyx (Cabozantinib S-Malate) 60 Mg Tablet 60 Mg PO HS Allopurinol 100 Mg Tablet 200 Mg PO DAILY Muscle Rub Cream (Methyl Salicylate/Menthol) 113 Gm Cream..g. 1 Gm TP TID Proair Hfa Inhaler (Albuterol Sulfate) 8.5 Gm Hfa.aer.ad 1 Puff INH PRN Q6HRS PRN Zyrtec (Cetirizine Hcl) 10 Mg Tablet 1 Tab PO DAILY Atorvastatin Calcium 40 Mg Tablet 1 Tab PO QHS Metformin Hcl 1,000 Mg Tablet 1,000 Mg PO BIDWMEALS Gabapentin 600 Mg Tablet 600 Mg PO DAILY08 Flomax (Tamsulosin Hcl) 0.4 Mg Cap.er.24h 1 Cap PO DAILY Humulin R (Insulin Regular, Human) 100 Unit/1 Ml Vial 100 Unit IJ TID SLIDING SCALE Furosemide 20 Mg Tablet 1 Tab PO DAILY Novolin N (Nph, Human Insulin Isophane) 100 Unit/1 Ml Vial 20 Unit SQ BID Senna (Sennosides) 8.6 Mg Tablet 2 Mg PO BID Vitals/I & O Vital Sign - Last 24 Hours 07/08/18 07/08/18 07/08/18 07/08/18 10:29 12:10 12:15 14:50 Temp 98.6 98.8 98.6 98.8 Pulse 92 92 103 Resp 20 18 B/P (MAP) 152/66 (94) 152/66 136/52 (80) Pulse Ox 96 96 94 O2 Delivery Room Air Room Air O2 Flow Rate 2.0 07/08/18 07/08/18 07/08/18 07/08/18 17:17 18:15 19:30 20:35 Temp 98.6 98.6 Pulse 88 Resp B/P (MAP) 127/58 (81) Pulse Ox 94 94 97 O2 Delivery Nasal Cannula Room Air Nasal Cannula Nasal Cannula O2 Flow Rate 2.0 2.0 2.0 07/08/18 07/08/18 07/09/18 07/09/18 21:28 23:36 01:28 03:32 Temp 98.3 98.1 98.3 98.1 Pulse 81 77 Resp 18 17 20 18 B/P (MAP) 124/56 (78) 130/61 (84) Pulse Ox 97 97 O2 Delivery Nasal Cannula Nasal Cannula Room Air Nasal Cannula O2 Flow Rate 2.0 2.0 2.0 07/09/18 07:39 Temp 98.0 98.0 Pulse 86 Resp 18 B/P (MAP) 113/54 (73) Pulse Ox 91 O2 Delivery Nasal Cannula O2 Flow Rate 2.0 Intake and Output 07/08/18 07/08/18 07/09/18 14:59 22:59 06:59 Intake Total 480 ml 680 ml Balance 480 ml 680 ml RIFFEL,CHRISTOPHER S MD Jul 09, 2018 08:16
[2018-07-09] MEDS: DOCUSATE SODIUM 100 MG CAPSULE. PO SCH (09:00)
[2018-07-09] MEDS: LACTULOSE 20 GM/30 ML SOLUTION. PO SCH (09:10)
[2018-07-09] MEDS: LISINOPRIL 10 MG TABLET PO SCH (09:11)
[2018-07-09] MEDS: hydroCHLOROthiazide 12.5 MG CAPSULE PO SCH (09:11)
[2018-07-09] MEDS: CETIRIZINE HCL 10 MG TABLET. PO SCH (09:11)
[2018-07-09] MEDS: GABAPENTIN 300 MG CAPSULE. PO SCH (09:11)
[2018-07-09] MEDS: FUROSEMIDE 20 MG TABLET PO SCH (09:12)
[2018-07-09] MEDS: metFORMIN 500 MG TABLET PO SCH ×2 (09:12→16:48)
[2018-07-09] MEDS: TAMSULOSIN 0.4 MG CAP.ER.24H. PO SCH (09:12)
[2018-07-09] MEDS: SENNOSIDES 8.6 MG TABLET PO SCH (09:12)
[2018-07-09] MEDS: PANTOPRAZOLE 40 MG TABLET.DR. PO SCH (09:13)
[2018-07-09] MEDS: MORPHINE ER 30 MG TABLET.ER PO SCH (09:13)
[2018-07-09] MEDS: PRENATAL MULTIVITAMIN TABLET. PO SCH (09:13)
[2018-07-09] MEDS: ALLOPURINOL 100 MG TABLET. PO SCH (09:13)
[2018-07-09] MEDS: INSULIN GLARGINE 300 UNITS/3 ML INSULN.PEN. SQ SCH (09:20)
[2018-07-09 10:03] LABS: CALCIUM 8.9 mg/dL (8.5-10.1); CREATININE 1.1 mg/dL (0.7-1.3); GFR 68.8; POTASSIUM 4.7 mmol/L (3.5-5.1)
[2018-07-09 10:38] VITALS: BP 132/61
--- NOTE | 2018-07-09 11:08 | NUR ---
Pharmacy Warfarin Dosing Note S:Pharmacy consulted to assist with anticoagulation therapy started with target INR: 2 -3 O:HELADIO GAO is a 57 year old M with DVT/PE LABS: Last INR: 2.2 Last HGB: 8.1 Last HCT: 24.9 Last PLT: 102 Last dose of 6 mg given on 07/08/18 at 1719 Previous Regimen: Vitamin K given: Drug Interaction Changes: Ongoing Drug Interactions: ASA/PLAVIX A:INR of 2.2 (FROM 07/08) is within desired range. Target range for this patient is: 2 -3 P: Warfarin dose: 6 mg Today at 1600 Bridge Therapy: Next INR due TOMORROW. Pharmacy anticoagulation service will continue to follow. ALEXSANDRA GAO [facility], 07/09/18 [id number]
[2018-07-09] MEDS: HYDROcodone/APAP 5/325MG 1 TAB TABLET PO PRN (12:46)
--- NOTE | 2018-07-09 13:42 | RAD ---
EXAM: Abdomen sonogram. HISTORY: Pain. TECHNIQUE: Sonographic imaging of the abdomen was performed. COMPARISON: None. FINDINGS: The liver is normal in size. No focal hepatic lesion is seen. The common bile duct is normal in caliber. The gallbladder is contracted due to the postprandial status of patient. This limits evaluation. The pancreas, right kidney, inferior vena cava and aorta are predominantly obscured due to bowel gas. IMPRESSION: 1. Contracted gallbladder due to the postprandial status the patient. This limits evaluation. 2. Limited evaluation of the right kidney, pancreas, and inferior vena cava and aorta due to bowel gas. 3. No convincing acute sonographic finding. Electronically signed by: Luz Rose MD (07/09/2018 1:39 PM) [facility]
--- NOTE | 2018-07-09 14:01 | NUR ---
IP: patient has hx of +MRSA screen 05/25/18, requires contact precautions until 2 negative results 7 days apart. Has 1 negative from 07/06/18.
--- NOTE | 2018-07-09 14:21 | PDOC3 ---
[facility]-Discharge Summary Date of Admission: Date of Admission: Jul 06, 2018 Date of Discharge: Date of Discharge: Jul 09, 2018 Admission Diagnosis: Admitting Diagnosis: Hyperkalemia Discharge Diagnosis: Discharge Diagnosis: Hyperkalemia Consults: Consults: Nephrology Hospital Course: Hospital Course: Mr Anaya is a 57yo M w/ PMHx HTN, DM and renal cell carcinoma with h/o DVTs and metastatic disease was admitted for hyperkalemia not from leg wounds or thrombocytopenia or bleeding or from his other chronic issues/signif past medical hx. Improved with aggressive IVF and renal consultation. He has f/u wound care established. Hyperkalemia has resolved, Labs look improved. Renal has signed off Blood pressure on the high side-per renal note they would recommend LAISHA inhibitor with diuretic. Diabetic control is labile. He c/o RLQ and RUQ abdominal pain today, however his imaging was negative. Acute kidney injury: Now resolved with IV fluids as ordered. Hyperkalemia: Now improving with temporizing measures. He may need to be on a renal diet at discharge. Lisinopril has been appropriately discontinued currently. Edema lower extremities: noted DVT scan. Extent of intra-abdominal spread of his underlying malignancy is not known given lack of imaging studies in our system. His Lasix for now Hypertension: Presumably associated with chemotherapeutic regimen. Blood pressures are currently better controlled. 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 Tilley History Occlusive thrombus left femoral vein-possibly remnant of previous DVT on that same leg - on warfarin - supratherapeutic INR, 3.4-no bleeding History epistaxis and hematemesis Diabetes moderate control Obesity BMI 38 History thrombocytopenia platelets 136 range LLE wound - need continued wound care Occlusive thrombus left femoral vein-possibly remnant of previous DVT on that same leg Diabetes 2, mod control mod protein, caloric malnutrition Renal cell carcinoma with metastases to the lungs - new dx the mets. 9th RT rib metastatic lesion- for 5 day radiaton tx Thrombocytopenia, platelets 136 with some hemoptysis PLAN: Wound care to see - looks good Then dc back to care home He will be released in care home July 2019 Trial laisha inhib and diuretic for high BP D/c back to care home after abdominal US and wound care Abdominal US 1. Contracted gallbladder due to the postprandial status the patient. This limits evaluation. 2. Limited evaluation of the right kidney, pancreas, and inferior vena cava and aorta due to bowel gas. 3. No convincing acute sonographic finding. Disposition: Disposition/Orders: D/C to Another Facility ([facility]) Activity: Activity: Resume previous activity Diet: Diet: Renal Medications: Home Meds Active Scripts Bacitracin/Polymyxin B Sulfate (BACITRACIN-POLYMYXIN OINTMENT) 28.35 Gm Oint...g., 1 JOSUE TP TID for wound MDD 1, #1 MISC Prov:SHAUN JOSE MD 06/09/18 Insulin Lispro (HUMALOG) 100 Unit/1 Ml Insuln.pen, 4 UNITS SQ TIDWMEALS for dm MDD 1, #30 EACH Prov:SHAUN JOSE MD 06/09/18 Gabapentin (GABAPENTIN) 300 Mg Capsule, 900 MG PO HS for neuropathy MDD 1, #30 CAP Prov:SHAUN JOSE MD 06/09/18 Reported Medications Ondansetron Hcl (ZOFRAN) 4 Mg Tablet, 1 TAB PO Q8HRS for N/V, #30 TAB 07/06/18 Warfarin Sodium (WARFARIN SODIUM) 6 Mg Tablet, 6 MG PO DAILY for DVT PREVENTION, #30 TAB 07/06/18 Pantoprazole Sodium (PROTONIX) 20 Mg Tablet.dr, 40 MG PO DAILY for GERD, TAB 07/06/18 Pnv With Ca,No.72/Iron/Fa ( PLUS TABLET) 1 Each Tablet, 1 TAB PO DAILY for supplement, #30 TAB 11 Refills 07/06/18 Hydrocodone Bit/Acetaminophen (HYDROCODONE-APAP 5-325 ) 1 Tab Tablet, 2 TAB PO PRN Q8HRS PRN for PAIN, TAB 0 Refills 07/06/18 Morphine Sulfate (MORPHINE SULFATE ER) 30 Mg Tablet.er, 1 TAB PO BID for pain, #60 TAB 07/06/18 Lactulose (LACTULOSE) 20 Gm/30 Ml Solution, 20 GM PO BID for constipation, MISC 07/06/18 Docusate Sodium (DOCUSATE SODIUM) 100 Mg Capsule, 1 CAP PO BID for constipation, #30 CAP 07/06/18 Cabozantinib S-Malate (Cabometyx) 60 Mg Tablet, 60 MG PO HS for chemo, TAB 07/06/18 Allopurinol (ALLOPURINOL) 100 Mg Tablet, 200 MG PO DAILY for gout 06/13/18 Methyl Salicylate/Menthol (MUSCLE RUB CREAM) 113 Gm Cream..g., 1 GM TP TID for pain, EACH 05/25/18 Albuterol Sulfate (PROAIR HFA INHALER) 8.5 Gm Hfa.aer.ad, 1 PUFF INH PRN Q6HRS PRN for SHORTNESS OF BREATH 05/25/18 Cetirizine Hcl (ZYRTEC) 10 Mg Tablet, 1 TAB PO DAILY for allergy 05/25/18 Atorvastatin Calcium (ATORVASTATIN CALCIUM) 40 Mg Tablet, 1 TAB PO QHS for hyperlipidemia 05/25/18 Metformin Hcl (METFORMIN HCL) 1,000 Mg Tablet, 1000 MG PO BIDWMEALS for diabetes 05/25/18 Gabapentin (GABAPENTIN) 600 Mg Tablet, 600 MG PO DAILY08 for NEUROGENIC PAIN 05/25/18 Tamsulosin Hcl (FLOMAX) 0.4 Mg Cap.er.24h, 1 CAP PO DAILY for BPH 05/25/18 Insulin Regular, Human (HUMULIN R) 100 Unit/1 Ml Vial, 100 UNIT IJ TID sliding scale for diabetes 05/25/18 Furosemide (FUROSEMIDE) 20 Mg Tablet, 1 TAB PO DAILY for swelling 05/25/18 Nph, Human Insulin Isophane (NOVOLIN N) 100 Unit/1 Ml Vial, 20 UNIT SQ BID for diabetes, VIAL 05/25/18 Sennosides (SENNA) 8.6 Mg Tablet, 2 MG PO BID for constipation, TAB 05/25/18 Discontinued Reported Medications Acetaminophen (TYLENOL) 325 Mg Tablet, 2 TAB PO TID PRN PRN for PAIN 05/25/18 Lisinopril (LISINOPRIL) 20 Mg Tablet, 1 TAB PO DAILY for hypertension 05/25/18 Pioglitazone Hcl (ACTOS) 45 Mg Tablet, 1 TAB PO DAILY for diabetes 05/25/18 Scheduled Allopurinol (Allopurinol), 200 MG PO DAILY, (Reported) Atorvastatin Calcium (Atorvastatin Calcium), 1 TAB PO QHS, (Reported) Bacitracin/Polymyxin B Sulfate (Bacitracin-Polymyxin Ointment), 1 JOSUE TP TID Cabozantinib S-Malate (Cabometyx), 60 MG PO HS, (Reported) Cetirizine Hcl (Zyrtec), 1 TAB PO DAILY, (Reported) Docusate Sodium (Docusate Sodium), 1 CAP PO BID, (Reported) Furosemide (Furosemide), 1 TAB PO DAILY, (Reported) Gabapentin (Gabapentin), 600 MG PO DAILY08, (Reported) Gabapentin (Gabapentin), 900 MG PO HS Insulin Lispro (Humalog), 4 UNITS SQ TIDWMEALS Insulin Regular, Human (Humulin R), 100 UNIT IJ TID sliding scale, (Reported) Lactulose (Lactulose), 20 GM PO BID, (Reported) Metformin Hcl (Metformin Hcl), 1,000 MG PO BIDWMEALS, (Reported) Methyl Salicylate/Menthol (Muscle Rub Cream), 1 GM TP TID, (Reported) Morphine Sulfate (Morphine Sulfate Er), 1 TAB PO BID, (Reported) Nph, Human Insulin Isophane (Novolin N), 20 UNIT SQ BID, (Reported) Ondansetron Hcl (Zofran), 1 TAB PO Q8HRS, (Reported) Pantoprazole Sodium (Protonix), 40 MG PO DAILY, (Reported) Pnv With Ca,No.72/Iron/Fa ( Plus Tablet), 1 TAB PO DAILY, (Reported) Sennosides (Senna), 2 MG PO BID, (Reported) Tamsulosin Hcl (Flomax), 1 CAP PO DAILY, (Reported) Warfarin Sodium (Warfarin Sodium), 6 MG PO DAILY, (Reported) Scheduled PRN Albuterol Sulfate (Proair Hfa Inhaler), 1 PUFF INH PRN Q6HRS PRN for SHORTNESS OF BREATH, (Reported) Hydrocodone Bit/Acetaminophen (Hydrocodone-Apap 5-325 ), 2 TAB PO PRN Q8HRS PRN for PAIN, (Reported) Discontinued Medications Acetaminophen (Tylenol), 2 TAB PO TID PRN PRN for PAIN, (Reported) Lisinopril (Lisinopril), 1 TAB PO DAILY, (Reported) Pioglitazone Hcl (Actos), 1 TAB PO DAILY, (Reported) KATT MURILLO MD Jul 09, 2018 14:21
[2018-07-09] MEDS ORDERED: HYDR12.575 PO (14:27)
--- NOTE | 2018-07-09 14:29 | SNU/HH DC ---
DISCHARGE ORDERS DISCHARGE INFORMATION: DISCHARGE DATE: Jul 09, 2018 FINAL DIAGNOSIS Problems Medical Problems: (1) Acute kidney injury Status: Acute (2) Hyperkalemia Status: Acute CONDITION ON DISCHARGE: Stable CODE STATUS: Code Status: Full POST DISCHARGE ORDERS: ACTIVITY ORDERS: Resume previous activity WOUND/INCISION CARE: Change dressing CHECKS AFTER DISCHARGE: CHECKS AFTER DISCHARGE: Check blood press - daily, Check blood sugar, ac/hs FOLLOW-UP: PHYSICIAN FOLLOW-UP: Dr. Tilley - Radiation Oncology ADDITIONAL FOLLOW-UP: [facility] wound clinic 3 times weekly LAB ORDERS FOR FOLLOW-UP: BMP in 1 week, then every 2 weeks ANTICOAGULATION F/U NEEDED: INR Every 1-4 weeks TREATMENT/EQUIPMENT ORDERS: ADAPTIVE EQUIPMENT NEEDED: None DISCHARGE MEDICATIONS: Home Meds Active Scripts Hydrochlorothiazide (HYDROCHLOROTHIAZIDE CAPSULE ) 12.5 Mg Capsule, 12.5 MG PO DAILY for HTN for 30 Days, #30 CAP Prov:KATT MURILLO MD 07/09/18 Bacitracin/Polymyxin B Sulfate (BACITRACIN-POLYMYXIN OINTMENT) 28.35 Gm Oint...g., 1 JOSUE TP TID for wound MDD 1, #1 MISC Prov:SHAUN JOSE MD 06/09/18 Insulin Lispro (HUMALOG) 100 Unit/1 Ml Insuln.pen, 4 UNITS SQ TIDWMEALS for dm MDD 1, #30 EACH Prov:SHAUN JOSE MD 06/09/18 Gabapentin (GABAPENTIN) 300 Mg Capsule, 900 MG PO HS for neuropathy MDD 1, #30 CAP Prov:SHAUN JOSE MD 06/09/18 Reported Medications Ondansetron Hcl (ZOFRAN) 4 Mg Tablet, 1 TAB PO Q8HRS for N/V, #30 TAB 07/06/18 Warfarin Sodium (WARFARIN SODIUM) 6 Mg Tablet, 6 MG PO DAILY for DVT PREVENTION, #30 TAB 07/06/18 Pantoprazole Sodium (PROTONIX) 20 Mg Tablet.dr, 40 MG PO DAILY for GERD, TAB 07/06/18 Pnv With Ca,No.72/Iron/Fa ( PLUS TABLET) 1 Each Tablet, 1 TAB PO DAILY for supplement, #30 TAB 11 Refills 07/06/18 Hydrocodone Bit/Acetaminophen (HYDROCODONE-APAP 5-325 ) 1 Tab Tablet, 2 TAB PO PRN Q8HRS PRN for PAIN, TAB 0 Refills 07/06/18 Morphine Sulfate (MORPHINE SULFATE ER) 30 Mg Tablet.er, 1 TAB PO BID for pain, #60 TAB 07/06/18 Lactulose (LACTULOSE) 20 Gm/30 Ml Solution, 20 GM PO BID for constipation, MISC 07/06/18 Docusate Sodium (DOCUSATE SODIUM) 100 Mg Capsule, 1 CAP PO BID for constipation, #30 CAP 07/06/18 Cabozantinib S-Malate (Cabometyx) 60 Mg Tablet, 60 MG PO HS for chemo, TAB 07/06/18 Allopurinol (ALLOPURINOL) 100 Mg Tablet, 200 MG PO DAILY for gout 06/13/18 Methyl Salicylate/Menthol (MUSCLE RUB CREAM) 113 Gm Cream..g., 1 GM TP TID for pain, EACH 05/25/18 Albuterol Sulfate (PROAIR HFA INHALER) 8.5 Gm Hfa.aer.ad, 1 PUFF INH PRN Q6HRS PRN for SHORTNESS OF BREATH 05/25/18 Cetirizine Hcl (ZYRTEC) 10 Mg Tablet, 1 TAB PO DAILY for allergy 05/25/18 Atorvastatin Calcium (ATORVASTATIN CALCIUM) 40 Mg Tablet, 1 TAB PO QHS for hyperlipidemia 05/25/18 Metformin Hcl (METFORMIN HCL) 1,000 Mg Tablet, 1000 MG PO BIDWMEALS for diabetes 05/25/18 Gabapentin (GABAPENTIN) 600 Mg Tablet, 600 MG PO DAILY08 for NEUROGENIC PAIN 05/25/18 Tamsulosin Hcl (FLOMAX) 0.4 Mg Cap.er.24h, 1 CAP PO DAILY for BPH 05/25/18 Insulin Regular, Human (HUMULIN R) 100 Unit/1 Ml Vial, 100 UNIT IJ TID sliding scale for diabetes 05/25/18 Furosemide (FUROSEMIDE) 20 Mg Tablet, 1 TAB PO DAILY for swelling 05/25/18 Nph, Human Insulin Isophane (NOVOLIN N) 100 Unit/1 Ml Vial, 20 UNIT SQ BID for diabetes, VIAL 05/25/18 Sennosides (SENNA) 8.6 Mg Tablet, 2 MG PO BID for constipation, TAB 05/25/18 Discontinued Reported Medications Acetaminophen (TYLENOL) 325 Mg Tablet, 2 TAB PO TID PRN PRN for PAIN 05/25/18 Lisinopril (LISINOPRIL) 20 Mg Tablet, 1 TAB PO DAILY for hypertension 05/25/18 Pioglitazone Hcl (ACTOS) 45 Mg Tablet, 1 TAB PO DAILY for diabetes 05/25/18 KATT MURILLO MD Jul 09, 2018 14:29
[2018-07-09 15:01] VITALS: BP 127/56
[2018-07-09] MEDS ORDERED: WARFARIN 3 MG TABLET. PO ONE (16:00)
--- NOTE | 2018-07-09 17:11 | NUR ---
Wound Care Wound care consult for LLE stasis ulcers. Compression wrap had been removed by RN on Monday, kerlix and coban wrapped around leg with old HFB and ABD over wounds. Cleansed, pictured and measured wounds for discharge. Redressed with HFB, drawtex, kerramax and 3 layer compression wrap. Pt will follow up on Monday in [facility] for next dressing change. No other wounds noted on full skin inspection. Pt and RN notified of POC.
== END 2018-07-09 18:00 | DRG 640 ==
LOC: EEVIPCON 08:22 → ER 08:22 → 2 NORTH 10:04
PROVIDERS: ADMIT Internal Medicine; ATTEND Internal Medicine
DX: E87.5 Hyperkalemia (principal); N17.0 Acute kidney failure with tubular necrosis; E44.0 Moderate protein-calorie malnutrition; L03.116 Cellulitis of left lower limb; I82.91 Chronic embolism and thrombosis of unspecified vein; C64.9 Malignant neoplasm of unspecified kidney, except renal pelvis; C78.00 Secondary malignant neoplasm of unspecified lung; I13.0 Hypertensive heart and chronic kidney disease with heart failure and stage 1 through stage 4 chronic kidney disease, or unspecified chronic kidney disease; D69.6 Thrombocytopenia, unspecified; E11.22 Type 2 diabetes mellitus with diabetic chronic kidney disease; E66.9 Obesity, unspecified; E78.00 Pure hypercholesterolemia, unspecified; M10.9 Gout, unspecified; E78.5 Hyperlipidemia, unspecified; N18.9 Chronic kidney disease, unspecified; I50.9 Heart failure, unspecified; Z68.38 Body mass index [BMI] 38.0-38.9, adult; Z79.01 Long term (current) use of anticoagulants; Z82.49 Family history of ischemic heart disease and other diseases of the circulatory system; Z86.718 Personal history of other venous thrombosis and embolism; Z85.528 Personal history of other malignant neoplasm of kidney; Z90.5 Acquired absence of kidney; Z92.3 Personal history of irradiation; Z88.8 Allergy status to other drugs, medicaments and biological substances
CPT/HCPCS: 36415; 36569; 71045; 76705; 80048; 80053; 82962; 84132; 85025; 85610; 87641; 93005; 96361; 96374; 96375; J0610; J1815; J7030; J7042; 99285-25